=== PATIENT | female | born 1940 | race Caucasian/White ===

== ENCOUNTER 2020-06-19 16:08 | Inpatient (IN) ==
--- NOTE | 2020-06-19 16:18 | Emergency Department Note ---
Impression & Plan Acute hyponatremia ED Provider Note NAME: MARY DUPONT AGE: 79 SEX: F : 1940 ARRIVES VIA: Walk-In INFORMANT: Patient, ED PROVIDER(S): Cooper Swift MD Chief Complaint: Dr. Suarez, abnormal blood work HPI: Patient does present from Dr. Kenyon's office due to concern for low sodium. The patient reportedly had a sodium of 120 and was referred here today. The patient did have letter completed on Wednesday. This is done as the patient has not been feeling her best with some fatigue and tiredness. Patient does not take any diuretics and does not have any prior history of thyroid issues. The patient does have a history of cardiomyopathy but no CHF and denies any liver or kidney problems. The patient does state that she has a chronic history of drinking proximate 4 cans of light beer per day but has not done that within the last several months and most recently had a beer on day as well as last night. Patient denies any fevers, chills, chest pains or shortness of breath. The patient denies any lower extremity swelling. Patient denies Covid symptoms including abdominal pain loss of taste or smell. ROS: See HPI for pertinent positives and negatives. A total of 10 systems were reviewed and otherwise negative. Past medical history: See below Surgical history: See below Social history: See below Physical Exam: GENERAL: Wearing a mask. NAD, non-toxic. EYE EXAM: Normal conjunctiva. PERRL, no anisocoria and EOM's grossly intact w/o pain. NECK: Supple, no nuchal rigidity, no adenopathy, non-tender. No signs of meningismus. LUNGS: Clear to auscultation. Normal chest wall mechanics. HEART: NSR, no MRG. ABDOMEN: Abdomen soft, non-tender, normo-active bowel sounds, no masses, no rebound or guarding. BACK: No CVA TTP. SKIN: No rashes and no bruising. UPPER EXTREMITIES: Upper extremities are grossly normal. LOWER EXTREMITIES: Grossly normal, no edema. NEURO EXAM: A&O x3, cranial nerves II-XII grossly intact, normal speech, moves all 4 extremities on command w/o issue. Differential diagnoses: Infection, dehydration, metabolic abnormality, hypo/hyperglycemia, electrolyte disturbance, anemia, hypoxia, cardiac sources, intracerebral event, toxicologic, neurologic, as well as other pathologies. Course: Patient was seen and evaluated the bedside. Full history physical exam was performed. EKG: Indication: Weakness Sinus bradycardia, rate of 53, normal intervals, normal axis, no ST changes or T WI. Imaging Studies: Radiology results as stated below per my review in the radiologist's interpretation: Cardiac monitoring: An order was placed for continuous cardiac monitoring. The monitor shows a rate of 55 with sinus bradycardia rhythm. MDM: Patient does present with concern for abnormal sodium. Blood work is obtained along with repeats in addition to urine and serum awesome's and electrolytes. I did try and obtain blood work in the outpatient setting from [facility]. Patient has normal white count H&H and platelet count. Patient's kidney func tion is unremarkable. Patient does have low sodium at 124 slightly improved compared to prior. The patient has low awesome's. Urinalysis does not show evidence of obvious infection but the patient does have leuks and whites but without bacteria. I did speak the on-call hospitalist AUREA Vaughn and the patient would be admitted due to the concern for her acute change in hyponatremia which may be secondary to beer portal romeo. The patient does have a history of chronic alcohol use. TSH is normal. Patient does not appear volume overloaded and patient has normal kidney function. Past Med/Surg History Medical History (Updated 06/19/20 @ 19:06 by Cooper Swift MD) Aortic stenosis Chronic pain disorder CKD (chronic kidney disease) stage 3, GFR 30-59 ml/min HTN (hypertension) Hyperlipidemia Hypertrophic cardiomyopathy Mitral regurgitation Raynauds disease Vitamin D deficiency Surgical History History of cholecystectomy History of hysterectomy Social History (Updated 06/19/20 @ 18:47 by Emerald Mitchell PA-C) Smoking Status: Former smoker Smoking End Date: 2000; Hx Alcohol Use: Yes Alcohol type: beer Alcohol Intake Frequency Comment: was daily but pt reports cutting back over past few months Preferred Language: Libyan Feels Safe at Home: Yes Allergies Allergies Allergy/AdvReac Type Severity Reaction Status Date / Time aspirin Allergy Severe Hives Verified 06/19/20 17:58 NSAIDS (Non-Steroidal Allergy Severe Anaphylaxis Verified 06/19/20 17:58 Anti-Inflamma NOEL Inhibitors Allergy Unknown HIVES, Verified 06/19/20 17:58 SWELLING OF FACE ibuprofen Allergy Unknown Hives Verified 06/19/20 17:58 pantoprazole Allergy Unknown Unknown Verified 06/19/20 17:58 Csovuiv-Gzz-Teg Reductase Allergy Unknown "arms and Verified 06/19/20 17:58 Inhibitor legs achy" pravastatin [From Pravachol] AdvReac Severe liver Verified 06/19/20 17:58 complications gabapentin AdvReac Unknown Edema Verified 06/19/20 17:58 valacyclovir [From Valtrex] AdvReac Unknown Kidneys Verified 06/19/20 17:58 shut down Home Meds Home Medications Medication Instructions Recorded Confirmed alendronate 70 mg PO WK 06/14/20 06/19/20 ezetimibe [Zetia] 10 mg PO HS 06/14/20 06/19/20 fenofibrate micronized [Tricor] 67 mg PO HS 06/14/20 06/19/20 lorazepam 0.5 mg SUBLINGUAL HS PRN 06/14/20 06/19/20 losartan 50 mg PO QAM 06/14/20 06/19/20 omeprazole 40 mg PO QAM 06/14/20 06/19/20 oxycodone 5 mg PO Q8H PRN 06/14/20 06/19/20 duloxetine 30 mg PO HS 06/19/20 06/19/20 lifitegrast [Xiidra] 1 drp OPB BID 06/19/20 06/19/20 metoprolol tartrate 50 mg PO BID 06/19/20 06/19/20 Results & Data (ED) Vital Signs Vital Signs - 24 hr 06/19/20 16:12 06/19/20 16:41 06/19/20 16:42 Temperature 36.8 C Temperature Source Oral Pulse Rate 55 L 53 L Pulse Rate [Apical] 60 Pulse Rate from SpO2 Sensor 53 L Respiratory Rate 16 14 12 Respiratory Effort / Characteristics Non-Labored Spontaneous Respiratory Depth Normal Normal Blood Pressure 182/75 H 172/72 H Blood Pressure [Left Arm] 172/72 H Blood Pressure Mean 110 118 Blood Pressure Mean [Left Arm] 105 Blood Pressure Position Sitting Blood Pressure Position [Left Arm] Lying Pulse Oximetry 98 98 100 Oxygen Delivery Method Room Air Room Air Sepsis Recent Fever Within 48 Hours No Sepsis New/Unexplained Change in Mental Status No Sepsis Action Taken by Nursing No Action Required 06/19/20 16:54 06/19/20 17:00 06/19/20 17:01 Temperature Temperature Source Pulse Rate 52 L 53 L 52 L Pulse Rate [Apical] 53 L Pulse Rate from SpO2 Sensor 54 L 54 L 52 L Respiratory Rate 18 Respiratory Effort / Characteristics Non-Labored Respiratory Depth Normal Blood Pressure 179/66 H Blood Pressure [Left Arm] 179/66 H Blood Pressure Mean 84 Blood Pressure Mean [Left Arm] 103 Blood Pressure Position Blood Pressure Position [Left Arm] Pulse Oximetry 98 99 99 Oxygen Delivery Method Room Air Sepsis Recent Fever Within 48 Hours Sepsis New/Unexplained Change in Mental Status Sepsis Action Taken by Nursing 06/19/20 17:10 06/19/20 17:20 06/19/20 17:30 Temperature Temperature Source Pulse Rate 53 L 53 L 54 L Pulse Rate [Apical] Pulse Rate from SpO2 Sensor 53 L 53 L 57 L Respiratory Rate 15 12 Respiratory Effort / Characteristics Respiratory Depth Blood Pressure Blood Pressure [Left Arm] Blood Pressure Mean Blood Pressure Mean [Left Arm] Blood Pressure Position Blood Pressure Position [Left Arm] Pulse Oximetry 99 100 99 Oxygen Delivery Method Sepsis Recent Fever Within 48 Hours Sepsis New/Unexplained Change in Mental Status Sepsis Action Taken by Nursing 06/19/20 17:31 06/19/20 17:40 06/19/20 17:50 Temperature Temperature Source Pulse Rate 54 L 56 L 57 L Pulse Rate [Apical] Pulse Rate from SpO2 Sensor 54 L 55 L 58 L Respiratory Rate 13 14 13 Respiratory Effort / Characteristics Respiratory Depth Blood Pressure 167/80 H Blood Pressure [Left Arm] Blood Pressure Mean 129 Blood Pressure Mean [Left Arm] Blood Pressure Position Blood Pressure Position [Left Arm] Pulse Oximetry 99 99 98 Oxygen Delivery Method Sepsis Recent Fever Within 48 Hours Sepsis New/Unexplained Change in Mental Status Sepsis Action Taken by Nursing 06/19/20 18:00 06/19/20 18:01 06/19/20 18:10 Temperature Temperature Source Pulse Rate 58 L 55 L 55 L Pulse Rate [Apical] Pulse Rate from SpO2 Sensor 58 L 55 L 56 L Respiratory Rate 16 15 14 Respiratory Effort / Characteristics Respiratory Depth Blood Pressure 183/78 H Blood Pressure [Left Arm] Blood Pressure Mean 92 Blood Pressure Mean [Left Arm] Blood Pressure Position Blood Pressure Position [Left Arm] Pulse Oximetry 98 98 98 Oxygen Delivery Method Sepsis Recent Fever Within 48 Hours Sepsis New/Unexplained Change in Mental Status Sepsis Action Taken by Nursing 06/19/20 18:20 06/19/20 18:30 06/19/20 18:31 Temperature Temperature Source Pulse Rate 55 L 56 L 55 L Pulse Rate [Apical] Pulse Rate from SpO2 Sensor 55 L 56 L Respiratory Rate 14 16 Respiratory Effort / Characteristics Respiratory Depth Blood Pressure 170/93 H Blood Pressure [Left Arm] Blood Pressure Mean 144 Blood Pressure Mean [Left Arm] Blood Pressure Position Blood Pressure Position [Left Arm] Pulse Oximetry 97 95 Oxygen Delivery Method Sepsis Recent Fever Within 48 Hours Sepsis New/Unexplained Change in Mental Status Sepsis Action Taken by Nursing 06/19/20 18:40 Temperature Temperature Source Pulse Rate 53 L Pulse Rate [Apical] Pulse Rate from SpO2 Sensor 54 L Respiratory Rate 16 Respiratory Effort / Characteristics Respiratory Depth Blood Pressure Blood Pressure [Left Arm] Blood Pressure Mean Blood Pressure Mean [Left Arm] Blood Pressure Position Blood Pressure Position [Left Arm] Pulse Oximetry 99 Oxygen Delivery Method Sepsis Recent Fever Within 48 Hours Sepsis New/Unexplained Change in Mental Status Sepsis Action Taken by Group Home Medications Current Medication List: was personally reviewed by me Laboratory Data Attestation: I reviewed the patient's lab results. Result diagrams: 06/19/20 16:22 06/19/20 16:22 Lab Results 06/19/20 06/19/20 06/19/20 Range/Units 16:22 16:22 16:22 WBC 6.56 (4.8-10.8) K/uL RBC 4.21 (4.2-5.4) M/uL Hgb 13.0 (12.0-16.0) g/dL Hct 37.9 (37-47) % MCV 90.0 (80-100) fL MCH 30.9 (25-34) pg MCHC 34.3 (32-36) g/dL RDW Std Deviation 41.5 (36.4-46.3) fL RDW Coeff of Cindy 12.6 (11.5-14.5) % Plt Count 372 (130-400) K/uL MPV 9.0 (7.4-10.4) fL Immature Gran % (Auto) 0.2 % Neut % (Auto) 57.6 % Lymph % (Auto) 29.7 % [place] % (Auto) 8.2 % Eos % (Auto) 3.7 % Baso % (Auto) 0.6 % Neut # (Auto) 3.78 (1.4-6.5) K/uL Lymph # (Auto) 1.95 (1.2-3.4) K/uL [place] # (Auto) 0.54 (0.11-0.59) K/uL Eos # (Auto) 0.24 (0-0.5) K/uL Baso # (Auto) 0.04 (0-0.2) K/uL Immature Gran # (Auto) 0.01 (0.00-0.02) K/uL Sodium 124 L (136-145) mmol/L Potassium 4.6 (3.5-5.1) mmol/L Chloride 92 L (98-107) mmol/L Carbon Dioxide 27 (21-32) mmol/L Anion Gap 5.0 (3-11) BUN 10 (7-18) mg/dl Creatinine 0.87 (0.6-1.2) mg/dl Est Cr Clr Drug Dosing 40.6 ml/min Est GFR ( Amer) 72.9 Est GFR (Non-Af Amer) 62.9 BUN/Creatinine Ratio 11.9 (10-20) Glucose 88 (70-99) mg/dl Osmolality 260 L (280-300) mOsm/kg Calcium 8.6 (8.5-10.1) mg/dl Total Bilirubin 0.4 (0.2-1) mg/dl AST 29 (15-37) U/L ALT 27 (12-78) U/L Alkaline Phosphatase 46 (45-117) U/L NT-Pro-B Natriuret Pep 431 (0-1800) pg/ml Total Protein 7.0 (6.4-8.2) gm/dl Albumin 3.7 (3.4-5.0) gm/dl Globulin 3.3 (2.5-4.0) gm/dl Albumin/Globulin Ratio 1.1 (0.9-2) TSH 1.700 (0.300-4.500) uIu/ml Urine Color Urine Appearance (Clear) Urine pH (4.5-7.5) Ur Specific [place] (1.000-1.030) Urine Protein (Negative) Urine Glucose (UA) (Negative) Urine Ketones (Negative) Urine Blood (Negative) Urine Nitrite (Negative) Urine Bilirubin (Negative) Urine Urobilinogen (Negative) Ur Leukocyte Esterase (Negative) Urine WBC (Auto) (0-5) /hpf Urine RBC (Auto) (0-4) /hpf U Hyaline Cast (Auto) (0-5) /lpf U Epithel Cells (Auto) (0-5) /lpf Urine Bacteria (Auto) (Negative) Ur Renal Epithelial Cell (0-5) /lpf Urine Osmolality (500-800) mOsm/kg Urine Sodium mmol/L Urine Potassium mmol/L Urine Chloride mmol/L 06/19/20 06/19/20 06/19/20 Range/Units 16:37 16:37 16:37 WBC (4.8-10.8) K/uL RBC (4.2-5.4) M/uL Hgb (12.0-16.0) g/dL Hct (37-47) % MCV (80-100) fL MCH (25-34) pg MCHC (32-36) g/dL RDW Std Deviation (36.4-46.3) fL RDW Coeff of Cindy (11.5-14.5) % Plt Count (130-400) K/uL MPV (7.4-10.4) fL Immature Gran % (Auto) % Neut % (Auto) % Lymph % (Auto) % [place] % (Auto) % Eos % (Auto) % Baso % (Auto) % Neut # (Auto) (1.4-6.5) K/uL Lymph # (Auto) (1.2-3.4) K/uL [place] # (Auto) (0.11-0.59) K/uL Eos # (Auto) (0-0.5) K/uL Baso # (Auto) (0-0.2) K/uL Immature Gran # (Auto) (0.00-0.02) K/uL Sodium (136-145) mmol/L Potassium (3.5-5.1) mmol/L Chloride (98-107) mmol/L Carbon Dioxide (21-32) mmol/L Anion Gap (3-11) BUN (7-18) mg/dl Creatinine (0.6-1.2) mg/dl Est Cr Clr Drug Dosing ml/min Est GFR ( Amer) Est GFR (Non-Af Amer) BUN/Creatinine Ratio (10-20) Glucose (70-99) mg/dl Osmolality (280-300) mOsm/kg Calcium (8.5-10.1) mg/dl Total Bilirubin (0.2-1) mg/dl AST (15-37) U/L ALT (12-78) U/L Alkaline Phosphatase (45-117) U/L NT-Pro-B Natriuret Pep (0-1800) pg/ml Total Protein (6.4-8.2) gm/dl Albumin (3.4-5.0) gm/dl Globulin (2.5-4.0) gm/dl Albumin/Globulin Ratio (0.9-2) TSH (0.300-4.500) uIu/ml Urine Color Yellow Urine Appearance Cloudy A (Clear) Urine pH 7.0 (4.5-7.5) Ur Specific [place] 1.018 (1.000-1.030) Urine Protein Negative (Negative) Urine Glucose (UA) Negative (Negative) Urine Ketones Negative (Negative) Urine Blood Trace H (Negative) Urine Nitrite Negative (Negative) Urine Bilirubin Negative (Negative) Urine Urobilinogen Negative (Negative) Ur Leukocyte Esterase 3+ H (Negative) Urine WBC (Auto) >30 H (0-5) /hpf Urine RBC (Auto) 5-10 H (0-4) /hpf U Hyaline Cast (Auto) 0 (0-5) /lpf U Epithel Cells (Auto) >30 H (0-5) /lpf Urine Bacteria (Auto) Negative (Negative) Ur Renal Epithelial Cell 10-20 H (0-5) /lpf Urine Osmolality 503 (500-800) mOsm/kg Urine Sodium 59 mmol/L Urine Potassium 51.2 mmol/L Urine Chloride 58 mmol/L Administered Medications Sodium Chloride (Nss 1000ml) 500 mls @ 80 mls/hr IV .[id number] [facility] Stop: 07/19/20 18:29 Last Admin: 06/19/20 18:36 Dose: 80 mls/hr Documented by: [id number] Discharge Plan Visit Data Chief Complaint: Abnormal Labs/Diagnostic Testing Stated Complaint: SENT BY ABNORMAL LABS ED Provider: Cooper Swift Discharge Problem: Acute hyponatremia Forms Stand Alone Forms: My [facility] [place] [email or web address] Prescriptions Prescriptions: No Action metoprolol tartrate 50 mg Tablet 50 mg PO BID RF: 0 Xiidra 5 % Dropperette 1 drp OPB BID RF: 0 duloxetine 30 mg Capsule, Delayed Rel Sprinkle 30 mg PO HS RF: 0 losartan 50 mg tablet 50 mg PO QAM RF: 0 alendronate 70 mg tablet 70 mg PO WK RF: 0 fenofibrate micronized [Tricor] 67 mg Capsule 67 mg PO HS RF: 0 omeprazole 40 mg capsule,delayed release(DR/EC) 40 mg PO QAM RF: 0 lorazepam 0.5 mg tablet 0.5 mg sublingual HS PRN (Reason: Insomnia) RF: 0 oxycodone 5 mg tablet 5 mg PO Q8H PRN (Reason: Pain) RF: 0 ezetimibe [Zetia] 10 mg Tablet 10 mg PO HS RF: 0
[2020-06-19 16:37] LABS: Basophils # (auto) 0.04 K/uL (0-0.2); Basophils % (auto) 0.6 %; Eosinophils # (auto) 0.24 K/uL (0-0.5); Eosinophils % (auto) 3.7 %; Hematocrit (blood only) 37.9 % (37-47); Immature Granulocytes # (auto) 0.01 K/uL (0.00-0.02); Immature Granulocytes % (auto) 0.2 %; Lymphocytes # (auto) 1.95 K/uL (1.2-3.4); Lymphocytes % (auto) 29.7 %; Mean Corpuscular Hemoglobin 30.9 pg (25-34); Mean Corpuscular Hgb Conc 34.3 g/dL (32-36); Monocytes # (auto) 0.54 K/uL (0.11-0.59); Monocytes % (auto) 8.2 %; Neutrophils # (auto) 3.78 K/uL (1.4-6.5); Neutrophils % (auto) 57.6 %; Platelet Count 372 K/uL (130-400); RDW Coefficient of Variation 12.6 % (11.5-14.5); RDW Standard Deviation 41.5 fL (36.4-46.3); Red Blood Count 4.21 M/uL (4.2-5.4); White Blood Count 6.56 K/uL (4.8-10.8)
--- NOTE | 2020-06-19 16:45 | XRay Report ---
XR chest 1V portable HISTORY: 79 years-old Female weakness acute weakness COMPARISON: Chest radiograph 06/02/2013 TECHNIQUE: Portable AP view of the chest FINDINGS: Cardiac silhouette is moderately enlarged. No pneumothorax, pleural effusion, airspace consolidation or overt pulmonary edema. Degenerative changes of the shoulders and spine. Healed remote left-sided r ib fractures. Cholecystectomy. IMPRESSION: No acute process. ACT 112: Negative or not required by law. The above report was generated using voice recognition software. It may contain grammatical, syntax o r spelling errors. Electronically signed by: Jay Shah M.D. 06/19/2020 4:44 PM
[2020-06-19 16:51] LABS: Appearance Urine Cloudy (Clear); Bacteria Urine Automated Negative (Negative); Bilirubin Urine Negative (Negative); Blood Urine Trace (Negative); Color Urine Yellow; Epithelial Cell Urine Auto >30 /lpf (0-5); Glucose Urine UA Negative (Negative); Ketones Urine Negative (Negative); Leukocyte Esterase Urine 3+ (Negative); Nitrite Urine Negative (Negative); Protein Urine Negative (Negative); Specific Gravity Urine 1.018 (1.000-1.030); Urobilinogen Urine Negative (Negative); WBC Urine Automated >30 /hpf (0-5)
[2020-06-19 16:56] LABS: Albumin Level 3.7 gm/dl (3.4-5.0); BUN Creatinine Ratio 11.9 (10-20); Calcium 8.6 mg/dl (8.5-10.1); Creatinine Clr Calc Pharmacy 40.6 ml/min; Est GFR (African American) 72.9; Est GFR (Non-African American) 62.9; Potassium 4.6 mmol/L (3.5-5.1)
[2020-06-19 17:01] LABS: Cast Urine Automated 0 /lpf (0-5)
[2020-06-19 17:06] LABS: Albumin Globulin Ratio 1.1 (0.9-2); Bilirubin,Total 0.4 mg/dl (0.2-1); Globulin 3.3 gm/dl (2.5-4.0); Thyroid Stimulating Hormone 1.7 uIu/ml (0.300-4.500)
[2020-06-19 17:08] LABS: Urine Potassium 51.2 mmol/L
[2020-06-19] MEDS: SODIUM CHLORIDE 0.9% 1000ML 500 ML IV SCH (18:36)
--- NOTE | 2020-06-19 18:55 | History & Physical Report ---
Date of Service June 19, 2020 Assessment & Plan (1) Hyponatremia: Unclear etiology - may be due to alcohol use although pt reports having cut back significantly. Water intake is limited most days already. - NSS 500 cc at 80 cc/hr - Repeat BMP at midnight and in AM - Consult nephrology - Holding losartan for now as rarely associated with hyponatremia - Check CT head to rule out central etiology (2) Chronic pain disorder: - Continue outpatient prn oxycodone (3) HTN (hypertension): - Continue beta malaika. Holding losartan as discussed. Monitor BP (4) Hyperlipidemia: - Continue Zetia. hx of rhabdomyolysis related to statin use (5) Alcohol use: - Alcohol withdrawal protocol - Thiamine and folic acid (6) CKD (chronic kidney disease) stage 3, GFR 30-59 ml/min: - Creatinine appears to be at baseline. Pt seen and evaluated with collaborating physician, Dr. Vigil. Plan of care discussed and as outlined above. Daughter, Cami Melo, was updated at the bedside. She requests to be updated daily at [phone]. Pt agreeable to this request. Pt is a full code. She states that Cami would make decisions for her if she is unable to make them for herself. Kaz Mitchell PA-C History of Present Illness Chief Complaint: referred by PCP to ED due to low sodium Primary Care Provider: Edilia Kenyon MD This is an 79 y/o female with a PMH of hypertrophic cardiomyopathy, pulmonary arterial HTN, hyperparathyroidism, GERD, dyslipidemia, anxiety, osteoporosis, PVD, and CKD3 who was referred to the ED today after outpatient labs from Wednesday came back with a sodium of 120. Pt reports ongoing issues with low sodium over the past few months but never this low. She has seen nephrology for CKD and hyperparathyroidism in the past. She reports ongoing issues with nausea for the past few months with associated decreased appetite so her oral intake is often limited. She was trying to drink at least 5 glasses of water per day but when her sodium was found to be low she cut back. Today she reports only 8-12 oz of water intake and she has not eaten. She has a history of daily intake of light beer until a few months ago when she cut back. Her last drink was yesterday and she reports that she is no longer drinking daily. She does not recall prior admission for alcohol withdrawal. Two nights ago she noted increased urination as often as every hour, but today urine output is decreased and she feels like she is having difficulty urinating and it is only small amounts when she does go. She denies hematuria, dysuria, odor, or change in color of urine. She has occasional diarrhea but only one episode in the past week. She has been feeling tired and currently reports feeling anxious but relates this to be admitted. Allergies Allergy/AdvReac Type Severity Reaction Status Date / Time aspirin Allergy Severe Hives Verified 06/19/20 17:58 NSAIDS (Non-Steroidal Allergy Severe Anaphylaxis Verified 06/19/20 17:58 Anti-Inflamma NOEL Inhibitors Allergy Unknown HIVES, Verified 06/19/20 17:58 SWELLING OF FACE ibuprofen Allergy Unknown Hives Verified 06/19/20 17:58 pantoprazole Allergy Unknown Unknown Verified 06/19/20 17:58 [id number]-Qna Reductase Allergy Unknown "arms and Verified 06/19/20 17:58 Inhibitor legs achy" pravastatin [From Pravachol] AdvReac Severe liver Verified 06/19/20 17:58 complications gabapentin AdvReac Unknown Edema Verified 06/19/20 17:58 valacyclovir [From Valtrex] AdvReac Unknown Kidneys Verified 06/19/20 17:58 shut down Home Medications Medication Instructions Recorded Confirmed Type alendronate 70 mg PO WK 06/14/20 06/19/20 History ezetimibe [Zetia] 10 mg PO HS 06/14/20 06/19/20 History fenofibrate micronized [Tricor] 67 mg PO HS 06/14/20 06/19/20 History lorazepam 0.5 mg SUBLINGUAL HS PRN 06/14/20 06/19/20 History losartan 50 mg PO QAM 06/14/20 06/19/20 History omeprazole 40 mg PO QAM 06/14/20 06/19/20 History oxycodone 5 mg PO Q8H PRN 06/14/20 06/19/20 History duloxetine 30 mg PO HS 06/19/20 06/19/20 History lifitegrast [Xiidra] 1 drp OPB BID 06/19/20 06/19/20 History metoprolol tartrate 50 mg PO BID 06/19/20 06/19/20 History Past Med/Surg History Medical History (Updated 06/19/20 @ 19:06 by Cooper Swift MD) Aortic stenosis Chronic pain disorder CKD (chronic kidney disease) stage 3, GFR 30-59 ml/min HTN (hypertension) Hyperlipidemia Hypertrophic cardiomyopathy Mitral regurgitation Raynauds disease Vitamin D deficiency Surgical History History of cholecystectomy History of hysterectomy Social History (Updated 06/19/20 @ 18:47 by Emerald Mitchell PA-C) Smoking Status: Former smoker Smoking End Date: 2000; Hx Alcohol Use: Yes Alcohol type: beer Alcohol Intake Frequency Comment: was daily but pt reports cutting back over past few months Preferred Language: Czech Feels Safe at Home: Yes Review of Systems Review of Systems: All systems reviewed & are unremarkable except as noted in HPI & below Constitutional: + fatigue and + anorexia; no fever, no chills and no sweats Eyes: no diplopia and no worsening vision Ear, Nose, Mouth, Throat: no nasal congestion, no nasal discharge and no sore throat Respiratory: no cough and no dyspnea Cardiovascular: no chest pain, no palpitations, no syncope and no edema Gastrointestinal: + nausea; no abdominal pain, no heartburn, no vomiting and no diarrhea/loose stools Genitourinary: as per Subjective / HPI Musculoskeletal: no radicular pain, no myalgia and no muscle weakness Integumentary: no rash Neurologic: + headache(s) (chronic daily x 8 months); no falls, no generalized weakness, no paresthesia and no dizziness Psychiatric: + anxiety Physical Exam Constitutional: WD/WN, vitals as above no acute distress Eyes: + anicteric sclerae Neck: trachea midline Respiratory: no respiratory distress and no labored breathing Auscultation: lungs clear to auscultation bilaterally; no rales, no rhonchi and no wheezes Cardiovascular: Rate/Rhythm: regular rate and regular rhythm Heart Sounds: + murmur (systolic) Gastrointestinal (Abdomen): Inspection/Auscultation: normal bowel sounds; abdomen not distended Percussion/Palpation: abdomen soft; abdomen nontender Musculoskeletal: Head/Neck/Chest: normocephalic, head atraumatic and neck supple Skin: no rashes, warm and dry normal turgor Neurologic: moves all extremities Speech / Cognition: normal speech Psychiatric: A+Ox3, euthymic affect Results & Data Results & Data ([facility]) Vital Signs (Past 12 Hours) Vital Signs Temp Pulse Pulse Resp BP BP Pulse Ox 06/19/20 17:10 53 L 99 06/19/20 17:01 52 L 179/66 H 99 06/19/20 17:00 53 L 53 L 18 179/66 H 99 06/19/20 16:54 52 L 98 06/19/20 16:42 53 L 12 172/72 H 100 06/19/20 16:41 60 14 172/72 H 98 06/19/20 16:12 36.8 C 55 L 16 182/75 H 98 Laboratory Results Laboratory Results - last 24 hr 06/19/20 06/19/20 06/19/20 16:22 16:22 16:22 WBC 6.56 RBC 4.21 Hgb 13.0 Hct 37.9 MCV 90.0 MCH 30.9 MCHC 34.3 RDW Std Deviation 41.5 RDW Coeff of Cindy 12.6 Plt Count 372 MPV 9.0 Immature Gran % (Auto) 0.2 Neut % (Auto) 57.6 Lymph % (Auto) 29.7 Davis % (Auto) 8.2 Eos % (Auto) 3.7 Baso % (Auto) 0.6 Neut # (Auto) 3.78 Lymph # (Auto) 1.95 Davis # (Auto) 0.54 Eos # (Auto) 0.24 Baso # (Auto) 0.04 Immature Gran # (Auto) 0.01 Sodium 124 L Potassium 4.6 Chloride 92 L Carbon Dioxide 27 Anion Gap 5.0 BUN 10 Creatinine 0.87 Est Cr Clr Drug Dosing 40.6 Est GFR ( Amer) 72.9 Est GFR (Non-Af Amer) 62.9 BUN/Creatinine Ratio 11.9 Glucose 88 Osmolality 260 L Calcium 8.6 Total Bilirubin 0.4 AST 29 ALT 27 Alkaline Phosphatase 46 NT-Pro-B Natriuret Pep 431 Total Protein 7.0 Albumin 3.7 Globulin 3.3 Albumin/Globulin Ratio 1.1 TSH 1.700 Urine Color Urine Appearance Urine pH Ur Specific Valders Urine Protein Urine Glucose (UA) Urine Ketones Urine Blood Urine Nitrite Urine Bilirubin Urine Urobilinogen Ur Leukocyte Esterase Urine WBC (Auto) Urine RBC (Auto) U Hyaline Cast (Auto) U Epithel Cells (Auto) Urine Bacteria (Auto) Ur Renal Epithelial Cell Urine Osmolality Urine Sodium Urine Potassium Urine Chloride 06/19/20 06/19/20 06/19/20 16:37 16:37 16:37 WBC RBC Hgb Hct MCV MCH MCHC RDW Std Deviation RDW Coeff of Cindy Plt Count MPV Immature Gran % (Auto) Neut % (Auto) Lymph % (Auto) Davis % (Auto) Eos % (Auto) Baso % (Auto) Neut # (Auto) Lymph # (Auto) Davis # (Auto) Eos # (Auto) Baso # (Auto) Immature Gran # (Auto) Sodium Potassium Chloride Carbon Dioxide Anion Gap BUN Creatinine Est Cr Clr Drug Dosing Est GFR ( Amer) Est GFR (Non-Af Amer) BUN/Creatinine Ratio Glucose Osmolality Calcium Total Bilirubin AST ALT Alkaline Phosphatase NT-Pro-B Natriuret Pep Total Protein Albumin Globulin Albumin/Globulin Ratio TSH Urine Color Yellow Urine Appearance Cloudy A Urine pH 7.0 Ur Specific Valders 1.018 Urine Protein Negative Urine Glucose (UA) Negative Urine Ketones Negative Urine Blood Trace H Urine Nitrite Negative Urine Bilirubin Negative Urine Urobilinogen Negative Ur Leukocyte Esterase 3+ H Urine WBC (Auto) >30 H Urine RBC (Auto) 5-10 H U Hyaline Cast (Auto) 0 U Epithel Cells (Auto) >30 H Urine Bacteria (Auto) Negative Ur Renal Epithelial Cell 10-20 H Urine Osmolality 503 Urine Sodium 59 Urine Potassium 51.2 Urine Chloride 58 Diagnostic Findings Chest x-ray 06/19/20 - IMPRESSION: No acute process. Code Status & VTE Plan VTE Prophylaxis Plan VTE Prophylaxis will be ordered: Yes Supervising Physician Co-Signing Physician Notes Pt seen and examined by pr, care coordinated with Kaz Mitchell PA-C, pls refer to her note above for further detail. Pt is an 79 y/o female with hx of hypertrophic cardiomyopathy, pulmonary arterial HTN, hyperparathyroidism, GERD, dyslipidemia, anxiety, osteoporosis, PVD, CKD3, alcohol abuse who was referred by her PCP for sodium of 120. She has seen nephrology for CKD and hyperparathyroidism in the past. She reports ongoing issues with nausea for the past few months with associated decreased appetite so her oral intake is often limited. She was trying to drink at least 5 glasses of water per day but when her sodium was found to be low she cut back as was recommended by PCP. Today she reports only 8-12 oz of water intake and she has not eaten. She has a history of daily intake of light beer until a few months ago when she cut back. Her last drink was yesterday and she reports that she is no longer drinking daily. She does not recall prior admission for alcohol withdrawal. Two nights ago she noted increased urination as often as every hour, but today urine output is decreased and she feels like she is having difficulty urinating and it is only small amounts when she does go. She denies hematuria, dysuria, odor, or change in color of urine. Reports having headache for several months now, also reports nausea as above. Currently she is sitting up in bed in [facility]. She is alert and oriented and answering questions appropriately. Pt's daughter (who is a nurse) is present at the bedside. Pt reports headache (having for several months) but no other complaints at this time. Daughter concerned about pt's drinking but reports pt cut back. On phys. exam lung sounds are clear w/o any wheezing, rhonchi or crackles. Heart sounds regular, + murmur. Abdomen is soft, nontender, nondistended, + bowel sounds. Pt moves extremities spontaneously. Cranial nerves II-XII seem intact. Skin is warm, dry. No LE edema. Will obtain head CT, urine osm, urine Na. Will provide gentle hydration w/ NS and follow Na level closly. Will discuss w/ nephrology. U cltx pending, will follow. Alcohol withdrawal precautions, thiamine, folic acid. Tyler Ignacio MD
--- NOTE | 2020-06-19 19:29 | CT Scan Report ---
CT head/brain wo con CLINICAL HISTORY: 79 years-old Female with hyponatremia. TECHNIQUE: Multiple axial CT images of the head were obtained without contrast. A dose lowering tech nique was utilized adhering to the principles of ALARA. CT DOSE: 537.48 mGy.cm COMPARISON: Head CT 05/30/2013 FINDINGS: No acute intracranial hemorrhage, midline shift, intracranial mass, hydrocephalus, territorial ischem ia or abnormal extra-axial collection. Mild age-related involutional changes. Cerebral vascular calci fications. The calvarium is intact. Mastoid air cells are clear. Mild mucosal thickening of the ethmoid air hardeep ls. Prior bilateral lens replacement. IMPRESSION: No acute intracranial abnormality. ACT 112: Negative or not required by law. The above report was generated using voice recognition software. It may contain grammatical, syntax o r spelling errors. Electronically signed by: Jay Shah M.D. 06/19/2020 7:27 PM
[2020-06-19] MEDS ORDERED: ACETAMINOPHEN 325 MG TAB PO PRN (20:16)
[2020-06-19] MEDS ORDERED: LORazepam 1 MG TAB PO PRN (20:16)
[2020-06-19] MEDS ORDERED: DULoxetine HCL 30 MG CAP PO SCH (21:00)
[2020-06-19] MEDS: EZETIMIBE 10 MG TABLET PO SCH (21:39)
[2020-06-19] MEDS: METOPROLOL TARTRATE 50 MG TAB PO SCH (21:39)
[2020-06-19] MEDS: THIAMINE HCL 100 MG TAB PO SCH (21:39)
[2020-06-19] MEDS: FENOFIBRATE NANOCRYSTALLIZED 48 MG TABLET SCH (21:39)
[2020-06-19] MEDS: oxyCODONE HCL IR 5 MG TAB (IMMEDIATE RELEASE) PO PRN (22:07)
[2020-06-19] MEDS: FOLIC ACID 1 MG TAB PO SCH (22:07)
[2020-06-19] MEDS: LORazepam 0.5 MG TAB SL PRN (23:44)
[2020-06-20 00:47] LABS: BUN Creatinine Ratio 14.1 (10-20); Calcium 8.1 mg/dl (8.5-10.1); Creatinine Clr Calc Pharmacy 46.9 ml/min; Est GFR (African American) 87.3; Est GFR (Non-African American) 75.3
[2020-06-20] MEDS: SODIUM CHLORIDE 0.9% 1000ML 500 ML IV SCH (00:48)
[2020-06-20 07:54] LABS: BUN Creatinine Ratio 13.5 (10-20); Creatinine Clr Calc Pharmacy 51.7 ml/min; Est GFR (African American) 95.8; Est GFR (Non-African American) 82.6
[2020-06-20] MEDS: oxyCODONE HCL IR 5 MG TAB (IMMEDIATE RELEASE) PO PRN ×2 (07:58→19:22)
[2020-06-20] MEDS: THIAMINE HCL 100 MG TAB PO SCH (07:59)
[2020-06-20] MEDS: FOLIC ACID 1 MG TAB PO SCH (07:59)
[2020-06-20] MEDS: METOPROLOL TARTRATE 50 MG TAB PO SCH ×2 (07:59→21:42)
--- NOTE | 2020-06-20 11:13 | Electrocardiogram Report ---
Test Reason : Blood Pressure : / mmHG Vent. Rate : 053 BPM Atrial Rate : 053 BPM P-R Int : 148 ms QRS Dur : 084 ms QT Int : 496 ms P-R-T Axes : 057 009 033 degrees QTc Int : 465 ms Sinus bradycardia Minimal voltage criteria for LVH, may be normal variant Borderline ECG When compared with ECG of 30-MAY-2013 10:41, No significant change was found Confirmed by Serg Mcintyre ([id number]) on 06/20/2020 11:13:20 AM Referred By: Edilia Kenyon Confirmed By:Marino Mcintyre
[2020-06-20 12:17] LABS: BUN Creatinine Ratio 11.5 (10-20); Calcium 8.5 mg/dl (8.5-10.1); Creatinine Clr Calc Pharmacy 50.3 ml/min; Est GFR (African American) 94.8; Est GFR (Non-African American) 81.8; Potassium 4.5 mmol/L (3.5-5.1)
--- NOTE | 2020-06-20 15:44 | Nephrology Consultation ---
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 Her sodium has increased to 131 from 124 yesterday. Rate of rise is acceptable. -Recommend fluid restriction of 40 ounces of water daily. Patient will continue the same even on discharge. -No need for IV fluids -Monitor sodium daily -Symptomatic management for headache and nausea which are potential triggers for ADH release (2) HTN (hypertension): Blood pressure is above target. Restart losartan at 25 mg daily. Monitor blood pressure closely. History of Present Illness Reason for Consultation: Hyponatremia Requesting Physician: Adama Henderson MD Attending Physician: Adama Henderson MD History of Present Illness This is 79-year-old female with history of hypertrophic cardiomyopathy with EF of 55%, hyperlipidemia, hypertension and CKD stage III with baseline creatinine of 1-1.2 who was admitted on 06/19/2020 with hyponatremia. She was found to have a sodium of 120 on outpatient labs done on 06/17/2020. Patient complains of nausea for several days. She has also been having headache for several days. She denies leg swelling. She was initially drinking lots of water until the PCP told her to cut back after findings of hyponatremia. She denies NSAID use. In the emergency room sodium was 124. Serum osmolality was 260. Urine sodium was 59 and urine osmolality of 503. She received normal saline. Sodium is 131 this morning. Losartan was held. Her blood pressure is high today. Allergies Allergy/AdvReac Type Severity Reaction Status Date / Time aspirin Allergy Severe Hives Verified 06/19/20 17:58 NSAIDS (Non-Steroidal Allergy Severe Anaphylaxis Verified 06/19/20 17:58 Anti-Inflamma NOEL Inhibitors Allergy Unknown HIVES, Verified 06/19/20 17:58 SWELLING OF FACE ibuprofen Allergy Unknown Hives Verified 06/19/20 17:58 pantoprazole Allergy Unknown Unknown Verified 06/19/20 17:58 Gsqjoip-Wle-Mnk Reductase Allergy Unknown "arms and Verified 06/19/20 17:58 Inhibitor legs achy" pravastatin [From Pravachol] AdvReac Severe liver Verified 06/19/20 17:58 complications gabapentin AdvReac Unknown Edema Verified 06/19/20 17:58 valacyclovir [From Valtrex] AdvReac Unknown Kidneys Verified 06/19/20 17:58 shut down Home Medications Medication Instructions Recorded Confirmed Type alendronate 70 mg PO WK 06/14/20 06/19/20 History ezetimibe [Zetia] 10 mg PO HS 06/14/20 06/19/20 History fenofibrate micronized [Tricor] 67 mg PO HS 06/14/20 06/19/20 History lorazepam 0.5 mg SUBLINGUAL HS PRN 06/14/20 06/19/20 History losartan 50 mg PO QAM 06/14/20 06/19/20 History omeprazole 40 mg PO QAM 06/14/20 06/19/20 History oxycodone 5 mg PO Q8H PRN 06/14/20 06/19/20 History duloxetine 30 mg PO HS 06/19/20 06/19/20 History lifitegrast [Xiidra] 1 drp OPB BID 06/19/20 06/19/20 History metoprolol tartrate 50 mg PO BID 06/19/20 06/19/20 History Patient History Medical History (Updated 06/19/20 @ 19:06 by Cooper Swift MD) Aortic stenosis Chronic pain disorder CKD (chronic kidney disease) stage 3, GFR 30-59 ml/min HTN (hypertension) Hyperlipidemia Hypertrophic cardiomyopathy Mitral regurgitation Raynauds disease Vitamin D deficiency Surgical History History of cholecystectomy History of hysterectomy Social History (Updated 06/19/20 @ 18:47 by Emerald Mitchell PA-C) Smoking Status: Never smoker Smoking End Date: 2000; Second Hand Exposure: No; Do You Dip or Chew Tobacco: No; Tobacco Cessation Education Requested by Patient: No Hx Alcohol Use: Yes Alcohol type: beer Alcohol Intake Frequency Comment: was daily but pt reports cutting back over past few months Hx Substance Use: No Preferred Language: Arabic Communication Ability: Effective Beliefs That Will Affect Care: None Current Living Situation: Alone Current Living Situation Comment: High Rise Apartment Complex Other Information That Helps Us Care for You: No Feels Safe at Home: Yes Safety Concerns: Feels Safe At This Time Assistive Devices: None Review of Systems Review of Systems: All systems reviewed & are unremarkable except as noted in HPI & below Physical Exam Physical Exam: General exam: Appears comfortable, no acute distress HEENT: Pupils are equal and reactive to light Neck: No JVD, neck is supple trachea is midline Respiratory system: Clear breath sounds bilaterally. Gastrointestinal: Abdomen is soft, non distended, non tender, bowel sounds are present CVS: Regular rate and rhythm. No murmurs, rubs or gallops Musculoskeletal: No joint or muscle tenderness Extremities: Non tender, no edema, peripheral pulses are present Neuro: Oriented, no tremors, no focal neurological deficits Skin: No rashes Results & Data ([facility]) Vital Signs (Past 12 Hours) Vital Signs Temp Pulse Resp BP Pulse Ox 06/20/20 07:20 36.9 C 65 16 167/64 H 94 Laboratory Results 06/20/20 11:50 06/19/20 06/19/20 16:22 16:22 WBC 6.56 RBC 4.21 MCV 90.0 MCH 30.9 MCHC 34.3 RDW Std Deviation 41.5 RDW Coeff of Cindy 12.6 Plt Count 372 MPV 9.0 Albumin 3.7
[2020-06-20] MEDS: LOSARTAN POTASSIUM 25 MG TAB PO SCH (16:11)
[2020-06-20 18:37] LABS: BUN Creatinine Ratio 14.3 (10-20); Calcium 8.3 mg/dl (8.5-10.1); Est GFR (African American) 80.7; Est GFR (Non-African American) 69.6; Potassium 4.2 mmol/L (3.5-5.1)
--- NOTE | 2020-06-20 19:59 | Hospitalist Progress Note ---
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 hx of rhabdomyolysis related to statin use (5) Alcohol use: No signs of alcohol withdrawal at this time will continue to monitor PRN Ativan for anxiety (6) CKD (chronic kidney disease) stage 3, GFR 30-59 ml/min: - Creatinine appears to be at baseline. Admission and Anticipated Discharge Date Admission Date: June 19, 2020 Subjective Follow-up for hyponatremia, etc. Seen sitting up in bed, comfortable, not in distress States she feels anxious secondary to ongoing medical condition Denies headache, chest pain, shortness of breath, nausea, abdominal pain Feels slightly better compared to yesterday No other symptoms Review of Systems Review of Systems: All systems reviewed & are unremarkable except as noted in Subjective Physical Exam Physical Exam: General- oriented x 3, not in distress, speaks in sentences with no effort or accessory muscle use Head- atraumatic Eyes- PERRL, EOMI, anicteric ENT- oropharynx clear Neck- supple, no JVD, no adenopathy, no thyromegaly; carotids +2/2, no bruits appreciated Lungs- clear to auscultation bilaterally, no rales/wheezes Heart- normal rate, regular rhythm; no murmur, no gallop, no rub appreciated Abdomen- normal bowel sounds, nondistended, soft, nontender, no masses or hepatosplenomegaly Extremities- no pretibial edema, no calf tenderness; peripheral pulses intact Neuro- alert, oriented x 3; CN 2-12 grossly intact; motor 5/5 bilaterally;sensation 100% on all extremities; no other gross focal neurologic deficits Skin- warm & dry Results & Data Results & Data ([facility]) Vital Signs (Past 12 Hours) Vital Signs Temp Pulse Resp BP Pulse Ox 06/20/20 15:41 36.8 C 52 L 18 158/62 H 94 Laboratory Results Laboratory Results - last 24 hr 06/20/20 06/20/20 06/20/20 00:22 06:17 11:50 Sodium 130 L 132 L 131 L Potassium 4.0 4.0 4.5 Chloride 97 L 100 100 Carbon Dioxide 26 24 27 Anion Gap 7.0 8.0 4.0 BUN 11 9 8 Creatinine 0.75 0.68 0.70 Est Cr Clr Drug Dosing 46.9 51.7 50.3 Est GFR ( Amer) 87.3 95.8 94.8 Est GFR (Non-Af Amer) 75.3 82.6 81.8 BUN/Creatinine Ratio 14.1 13.5 11.5 Glucose 101 H 86 85 Calcium 8.1 L 8.0 L 8.5 06/20/20 18:01 Sodium 131 L Potassium 4.2 Chloride 98 Carbon Dioxide 27 Anion Gap 6.0 BUN 11 Creatinine 0.80 Est Cr Clr Drug Dosing 44.0 Est GFR ( Amer) 80.7 Est GFR (Non-Af Amer) 69.6 BUN/Creatinine Ratio 14.3 Glucose 100 H Calcium 8.3 L
[2020-06-20] MEDS: EZETIMIBE 10 MG TABLET PO SCH (21:42)
[2020-06-20] MEDS: FENOFIBRATE NANOCRYSTALLIZED 48 MG TABLET SCH (21:42)
[2020-06-20] MEDS: LORazepam 0.5 MG TAB SL PRN (23:34)
[2020-06-21] MEDS: oxyCODONE HCL IR 5 MG TAB (IMMEDIATE RELEASE) PO PRN ×2 (07:54→20:25)
[2020-06-21] MEDS: LOSARTAN POTASSIUM 25 MG TAB PO SCH (08:50)
[2020-06-21] MEDS: METOPROLOL TARTRATE 50 MG TAB PO SCH ×2 (08:51→20:25)
[2020-06-21] MEDS: THIAMINE HCL 100 MG TAB PO SCH (08:51)
[2020-06-21] MEDS: FOLIC ACID 1 MG TAB PO SCH (08:51)
[2020-06-21 09:29] LABS: BUN Creatinine Ratio 16.9 (10-20); Calcium 8.6 mg/dl (8.5-10.1); Creatinine Clr Calc Pharmacy 48.2 ml/min; Est GFR (African American) 90.2; Est GFR (Non-African American) 77.8
[2020-06-21] MEDS ORDERED: LOSARTAN POTASSIUM 25 MG TAB PO ONE (12:18)
[2020-06-21] MEDS: LORazepam 0.5 MG TAB PO PRN (13:08)
--- NOTE | 2020-06-21 13:17 | Psychiatric Consultation ---
Date of Consultation June 21, 2020 Impression / Recommendations Impression 79 yo female with hyponatremia, Cymbalta held by primary team in case contributing on some level as only started 1 week ago. There is no evidence of psychogenic polydipsia. Plan: no indication for psychiatric hospitalization. do not restart Cymbalta upon discharge, generally does not cause that level of hyponatremia but does cause significant N which may have exacerbated her already poor appetite and variable PO intake. SSRIs can contribute to hyponatremia, and in fact most psych meds can casue some degree of SIADH, with antipsychotics being worse offenders. If she hasn't been tried on an SSRI, a low dose with repeat sodium could be attempted. Other option, if insurance/cost allows, would be a newer agent like Viibryd. In short, no new psych meds at this time, should wait until repeat Na as outpa tient and trial of a low dose SSRI with with monitoring (if not previous) or Viibryd at discretion of Dr. Kenyon. I suspect that her hyponatremia was going on for some time and contributed to many of the symptoms she is identifying as depression. Benzodiazepines should be avoided on regular basis for sleep and can contribute to falls in patients >65. Psych History Identifying Data 79 yo female admit for severe hyponatremia. Consult is by Dr. Henderson for depression as Cymbalta is held. Chief Complaint "I'm ready to take something but I don't believe in therapy". History of Present Illness Reports she has been having WOODS and N for 6-8 months, started on Cymbalta last week. admit sodium 124. Denies excessive water drinking. Reports depressive symptoms (low mood, appetite, motivation, concentration and energy) have been worse since COVID due to isolation. She denies ever having suicidal thoughts. She does experience anxiety a few times a week but no panic. She attributes her apurva to her ability to deal with most things. Past Psychiatric History Previous Psych History: no formal, med trials via PCP. Past Medication Trials: probably Remeron, Wellbutrin, trazodone. States that she doesn't want to gain weight and most meds cause swelling (pedal edema) or general puffiness. She would not want to retry any med she has taken before. Allergies Allergy/AdvReac Type Severity Reaction Status Date / Time aspirin Allergy Severe Hives Verified 06/19/20 17:58 NSAIDS (Non-Steroidal Allergy Severe Anaphylaxis Verified 06/19/20 17:58 Anti-Inflamma NOEL Inhibitors Allergy Unknown HIVES, Verified 06/19/20 17:58 SWELLING OF FACE ibuprofen Allergy Unknown Hives Verified 06/19/20 17:58 pantoprazole Allergy Unknown Unknown Verified 06/19/20 17:58 [id number] Reductase Allergy Unknown "arms and Verified 06/19/20 17:58 Inhibitor legs achy" pravastatin [From Pravachol] AdvReac Severe liver Verified 06/19/20 17:58 complications gabapentin AdvReac Unknown Edema Verified 06/19/20 17:58 valacyclovir [From Valtrex] AdvReac Unknown Kidneys Verified 06/19/20 17:58 shut down Home Medications Medication Instructions Recorded Confirmed Type alendronate 70 mg PO WK 06/14/20 06/19/20 History ezetimibe [Zetia] 10 mg PO HS 06/14/20 06/19/20 History fenofibrate micronized [Tricor] 67 mg PO HS 06/14/20 06/19/20 History lorazepam 0.5 mg SUBLINGUAL HS PRN 06/14/20 06/19/20 History losartan 50 mg PO QAM 06/14/20 06/19/20 History omeprazole 40 mg PO QAM 06/14/20 06/19/20 History oxycodone 5 mg PO Q8H PRN 06/14/20 06/19/20 History duloxetine 30 mg PO HS 06/19/20 06/19/20 History lifitegrast [Xiidra] 1 drp OPB BID 06/19/20 06/19/20 History metoprolol tartrate 50 mg PO BID 06/19/20 06/19/20 History Family History denied Substance Abuse History hx of regular ETOh use in past. Personal History Living Arrangements: Apartment ([facility]) Employment Status: Retired Beliefs That Will Affect Care: None Patient History Medical History Aortic stenosis Chronic pain disorder CKD (chronic kidney disease) stage 3, GFR 30-59 ml/min HTN (hypertension) Hyperlipidemia Hypertrophic cardiomyopathy Mitral regurgitation Raynauds disease Vitamin D deficiency Surgical History History of cholecystectomy History of hysterectomy Social History Smoking Status: Never smoker Smoking End Date: 2000; Second Hand Exposure: No; Do You Dip or Chew Tobacco: No; Tobacco Cessation Education Requested by Patient: No Hx Alcohol Use: Yes Alcohol type: beer Alcohol Intake Frequency Comment: was daily but pt reports cutting back over past few months Hx Substance Use: No Preferred Language: [place]i Communication Ability: Effective Beliefs That Will Affect Care: None marital status: Unknown Current Living Situation: Alone Current Living Situation Comment: High Rise Apartment Complex Other Information That Helps Us Care for You: No Feels Safe at Home: Yes Safety Concerns: Feels Safe At This Time Assistive Devices: None Physical Exam Psychiatric: Orientation: alert Apperance: appropriately groomed Eye Contact: good eye contact Motor Behavior: no abnormal motor movements Speech: normal rate/rhythm/volume of speech Affect: + constricted affect Mood: + depressed mood Thought Process: goal directed thought process Thought Content: reality based without delusions Suicidal Thoughts: denies suicidal thoughts Homicidal Thoughts: denies homicidal thoughts Insight: + fair insight Judgement: + fair judgement Vital Signs (Past 24 Hours): Last Vital Signs Temp 36.8 C 06/21/20 07:22 Pulse 57 L 06/21/20 07:22 Resp 16 06/21/20 07:22 BP 154/69 H 06/21/20 07:22 Pulse Ox 98 06/21/20 07:22 Review of Systems All systems reviewed & are unremarkable except as noted in HPI & below Results & Data (PSY) Medications Administered Ezetimibe (Ezetimibe 10 Mg Tablet) 10 mg PO HS TESHA Stop: 07/19/20 20:59 Last Admin: 06/20/20 21:42 Dose: 10 mg Documented by: [id number] Admin: 06/19/20 21:39 Dose: 10 mg Documented by: [id number] Fenofibrate (Fenofibrate Nanocrystallized 48 Mg Tablet) 48 mg NA HS TESHA Stop: 07/19/20 20:59 Last Admin: 06/20/20 21:42 Dose: 48 mg Documented by: [id number] Admin: 06/19/20 21:39 Dose: 48 mg Documented by: [id number] Folic Acid (Folic Acid 1 Mg Tab) 1 mg PO QA TESHA Stop: 07/19/20 20:59 Last Admin: 06/21/20 08:51 Dose: 1 mg Documented by: [id number] Admin: 06/20/20 07:59 Dose: 1 mg Documented by: [id number] Admin: 06/19/20 22:07 Dose: 1 mg Documented by: [id number] Lorazepam (Lorazepam 0.5 Mg Tab) 0.5 mg SL HS PRN PRN Reason: Insomnia Stop: 07/19/20 20:15 Last Admin: 06/20/20 23:34 Dose: 0.5 mg Documented by: [id number] Admin: 06/19/20 23:44 Dose: 0.5 mg Documented by: [id number] Metoprolol Tartrate (Metoprolol Tartrate 50 Mg Tab) 50 mg PO BID [facility] Stop: 07/19/20 20:59 Last Admin: 06/21/20 08:51 Dose: 50 mg Documented by: [id number] Admin: 06/20/20 21:42 Dose: 50 mg Documented by: [id number] Admin: 06/20/20 07:59 Dose: 50 mg Documented by: [id number] Admin: 06/19/20 21:39 Dose: 50 mg Documented by: [id number] Miscellaneous (Lifitegrast [Xiidra] 5 % : Order Awaiting Action) 1 ea N/A QS [facility] Stop: 07/20/20 07:59 Last Admin: 06/21/20 07:53 Dose: Not Given Documented by: [id number] Admin: 06/20/20 23:18 Dose: Not Given Documented by: [id number] Admin: 06/20/20 15:07 Dose: Not Given Documented by: [id number] Admin: 06/20/20 07:05 Dose: Not Given Documented by: [id number] Miscellaneous ((Omeprazole 40 Mg Capsule: Order Awaiting Action) 1 ea N/A QS [facility] Stop: 07/20/20 07:59 Last Admin: 06/21/20 07:53 Dose: Not Given Documented by: [id number] Admin: 06/20/20 23:18 Dose: Not Given Documented by: [id number] Admin: 06/20/20 15:07 Dose: Not Given Documented by: [id number] Admin: 06/20/20 07:05 Dose: Not Given Documented by: [id number] Oxycodone HCl (Oxycodone Hcl Ir 5 Mg Tab (Immediate Release)) 5 mg PO Q8H PRN PRN Reason: Pain Stop: 07/03/20 20:29 Last Admin: 06/21/20 07:54 Dose: 5 mg Documented by: [id number] Admin: 06/20/20 19:22 Dose: 5 mg Documented by: [id number] Admin: 06/20/20 07:58 Dose: 5 mg Documented by: [id number] Admin: 06/19/20 22:07 Dose: 5 mg Documented by: [id number] Thiamine HCl (Thiamine Hcl 100 Mg Tab) 100 mg PO QAM TESHA Stop: 07/19/20 20:59 Last Admin: 06/21/20 08:51 Dose: 100 mg Documented by: [id number] Admin: 06/20/20 07:59 Dose: 100 mg Documented by: [id number] Admin: 06/19/20 21:39 Dose: 100 mg Documented by: [id number] Coding Level of Care Code 72215 [facility] Lvl 2
[2020-06-21] MEDS ORDERED: MAGNESIUM HYDROXIDE SUSP 30 ML UDC PO PRN (15:55)
--- NOTE | 2020-06-21 17:53 | Hospitalist Progress Note ---
Date of Service June 21, 2020 Assessment & Plan (1) Acute hyponatremia: 7-year-old female with history of hypertension, CKD stage III, alcohol use, chronic pain syndrome Presenting with hyponatremia of 120. 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 Guajardo: should wait until repeat Na as outpatient and trial of a low dose SSRI with with monitoring (if not previous) or Viibryd at discretion of Dr. Kenyon (2) Chronic pain disorder: - Continue outpatient prn oxycodone (3) HTN (hypertension): -Continue metoprolol -Continue losartan (4) Hyperlipidemia: - Continue Zetia. hx of rhabdomyolysis related to statin use (5) Alcohol use: Patient reports her last drink was early May No signs of alcohol withdrawal at this time will continue to monitor PRN Ativan for anxiety (6) CKD (chronic kidney disease) stage 3, GFR 30-59 ml/min: - Creatinine appears to be at baseline. Disposition Anticipate discharge to home tomorrow when sodium level remained stable Admission and Anticipated Discharge Date Admission Date: June 19, 2020 Subjective Follow-up for hyponatremia, SIADH, etc. Seen resting in bed, comfortable, not in distress In better spirits States she feels better today compared to yesterday Still has mild anxiety, and generalized headache which is chronic Denies nausea vomiting abdominal pain, chest pain, shortness of breath, palpitations, dizziness Denies tremors, confusion, sweating; reports last drink was first week of May No other symptoms Review of Systems Review of Systems: All systems reviewed & are unremarkable except as noted in Subjective Physical Exam Physical Exam: General- oriented x 3, not in distress, speaks in sentences with no effort or accessory muscle use Eyes- anicteric Neck- no JVD Lungs- clear breath sounds bilaterally Heart- normal rate, regular rhythm; no murmurs Abdomen- normal bowel sounds, nondistended, soft, nontender Extremities- no pretibial edema, no calf tenderness No tremors Neuro- alert, oriented x 3; no gross focal neurologic deficits Skin- warm & dry Results & Data Results & Data ([facility]) Vital Signs (Past 12 Hours) Vital Signs Temp Pulse Resp BP BP Pulse Ox 06/21/20 16:13 36.8 C 57 L 18 147/63 H 98 06/21/20 07:22 36.8 C 57 L 16 154/69 H 98 Laboratory Results Laboratory Results - last 24 hr 06/20/20 06/21/20 06/21/20 18:01 08:13 09:47 Sodium 131 L 132 L Potassium 4.2 4.2 Chloride 98 101 Carbon Dioxide 27 28 Anion Gap 6.0 3.0 BUN 11 12 Creatinine 0.80 0.73 Est Cr Clr Drug Dosing 44.0 48.2 Est GFR ( Amer) 80.7 90.2 Est GFR (Non-Af Amer) 69.6 77.8 BUN/Creatinine Ratio 14.3 16.9 Glucose 100 H 92 Calcium 8.3 L 8.6
[2020-06-21] MEDS ORDERED: ENOXAPARIN INJ 30 MG/0.3 ML SYR SQ SCH (18:30)
--- NOTE | 2020-06-21 19:18 | Nephrology Progress Note ---
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 Her sodium has increased to 132 from 121 yesterday. Rate of rise is acceptable. some question of EtOH use at home per family >> SIADH could in that setting be from low solute diet. -Recommend fluid restriction of 50 ounces of water daily (1.5 L). Patient will continue the same even on discharge. -daily bmp -Symptomatic management for headache and nausea which are potential triggers for ADH release -- but avoid nsaids -recommend bmp w/in 3-5 days of discharge and keep already scheduled 07/09 appt w/ Dr Brennan Thornton >> d/c summary updated will sign off; pls call if ? (2) HTN (hypertension): Blood pressure is above target. up losartan to 50 mg daily. Monitor blood pressure closely. Admission and Anticipated Discharge Date Admission Date: June 19, 2020 Results & Data ([facility]) Vital Signs (Past 12 Hours) Vital Signs Temp Pulse Resp BP BP Pulse Ox 06/21/20 16:13 36.8 C 57 L 18 147/63 H 98 06/21/20 07:22 36.8 C 57 L 16 154/69 H 98 Laboratory Results 06/19/20 16:22 06/21/20 09:47
[2020-06-21] MEDS: EZETIMIBE 10 MG TABLET PO SCH (20:25)
[2020-06-21] MEDS: FENOFIBRATE NANOCRYSTALLIZED 48 MG TABLET SCH (20:25)
[2020-06-21] MEDS: LORazepam 0.5 MG TAB SL PRN (23:44)
[2020-06-22 04:30] VITALS: O2SAT 96
[2020-06-22 06:29] LABS: BUN Creatinine Ratio 24.6 (10-20); Calcium 8.6 mg/dl (8.5-10.1); Creatinine Clr Calc Pharmacy 47.5 ml/min; Est GFR (African American) 88.7; Est GFR (Non-African American) 76.5
[2020-06-22 07:33] VITALS: PULSE 92; TEMP 99
[2020-06-22] MEDS: FOLIC ACID 1 MG TAB PO SCH (08:45)
[2020-06-22] MEDS: METOPROLOL TARTRATE 50 MG TAB PO SCH (08:45)
[2020-06-22] MEDS: oxyCODONE HCL IR 5 MG TAB (IMMEDIATE RELEASE) PO PRN (08:46)
[2020-06-22] MEDS: THIAMINE HCL 100 MG TAB PO SCH (08:46)
[2020-06-22] MEDS ORDERED: OMEPRAZOLE 20 MG CAPCR PO SCH (09:00)
[2020-06-22] MEDS ORDERED: LOSARTAN POTASSIUM 50 MG TAB PO SCH (09:00)
[2020-06-22 11:21] VITALS: BP 157/63
[2020-06-22] MEDS: LORazepam 0.5 MG TAB PO PRN (11:37)
--- NOTE | 2020-06-22 12:37 | Hospitalist Progress Note ---
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 CT head: Negative for acute process Given IV NSS, sodium from 120--> improved 132 Serum Osm, Urine Osm and Na points towards SIADH Youth Pastor consulted, recommends Fluid restriction 1500 cc/day Possible contribution of Cymbalta which was started 1 week ago consult psychiatry, Dr. Guajardo: should wait until repeat Na as outpatient and trial of a low dose SSRI with with monitoring (if not previous) or Viibryd at discretion of Dr. Kenyon (2) Chronic pain disorder: - Continue outpatient prn oxycodone (3) HTN (hypertension): -Continue metoprolol -Continue losartan (4) Hyperlipidemia: - Continue Zetia - hx of rhabdomyolysis related to statin use (5) Alcohol use: Patient reports her last drink was early May No signs of alcohol withdrawal at this time will continue to monitor PRN Ativan for anxiety (6) CKD (chronic kidney disease) stage 3, GFR 30-59 ml/min: - Creatinine appears to be at baseline. (7) Headache Follow-up with neurologist outpatient, felt to be secondary to migraine Possible contribution of chronic sinusitis? Bacterial component? Will order cefdinir x1 week Disposition (8) Depression Cymbalta held per #1 Patient requesting anxiety medication as needed, will order Vistaril as needed Continue outpatient follow-up Disposition Discharge to home Follow-up with PCP in 1 week Admission and Anticipated Discharge Date Admission Date: June 19, 2020 Subjective Follow-up for hyponatremia, etc. Seen resting in bed, comfortable, not in distress States that she feels fine overall Has mild headache, chronic; no new focal neurologic deficits, nausea or vomiting Has sinus congestion which is chronic, with clear nasal drainage Denies fevers or chills, muscle aches, anosmia, poor appetite Reports anxiety-mild but persistent No other symptoms States that she is ready and would like to be discharged today Review of Systems Review of Systems: All systems reviewed & are unremarkable except as noted in Subjective Physical Exam Physical Exam: General- oriented x 3, not in distress, speaks in sentences with no effort or accessory muscle use Eyes- anicteric Neck- no JVD Lungs- clear BS BL Heart- normal rate, regular rhythm; no murmurs Abdomen- normal bowel sounds, nondistended, soft, nontender Extremities- no pretibial edema, no calf tenderness Neuro- alert, oriented x 3; no gross focal neurologic deficits Skin- warm & dry Results & Data Results & Data ([facility]) Vital Signs (Past 12 Hours) Vital Signs Temp Pulse Resp BP BP Pulse Ox 06/22/20 11:17 37.2 C 92 H 20 157/63 H 159/82 H 96 06/22/20 07:32 37.2 C 92 H 20 159/82 H 96 06/22/20 04:29 36.7 C 59 L 18 145/68 H 96 Laboratory Results Laboratory Results - last 24 hr 06/22/20 05:28 Sodium 136 Potassium 4.0 Chloride 102 Carbon Dioxide 30 Anion Gap 4.0 BUN 18 Creatinine 0.74 Est Cr Clr Drug Dosing 47.5 Est GFR ( Amer) 88.7 Est GFR (Non-Af Amer) 76.5 BUN/Creatinine Ratio 24.6 H Glucose 94 Calcium 8.6
--- NOTE | 2020-06-22 12:48 | Discharge Summary ---
Date of Service June 22, 2020 Admission HPI Per Admitting Provider This is an 79 y/o female with a PMH of hypertrophic cardiomyopathy, pulmonary arterial HTN, hyperparathyroidism, GERD, dyslipidemia, anxiety, osteoporosis, PVD, and CKD3 who was referred to the ED today after outpatient labs from Wednesday came back with a sodium of 120. Pt reports ongoing issues with low sodium over the past few months but never this low. She has seen nephrology for CKD and hyperparathyroidism in the past. She reports ongoing issues with nausea for the past few months with associated decreased appetite so her oral intake is often limited. She was trying to drink at least 5 glasses of water per day but when her sodium was found to be low she cut back. Today she reports only 8-12 oz of water intake and she has not eaten. She has a history of daily intake of light beer until a few months ago when she cut back. Her last drink was yesterday and she reports that she is no longer drinking daily. She does not recall prior admission for alcohol withdrawal. Two nights ago she noted increased urination as often as every hour, but today urine output is decreased and she feels like she is having difficulty urinating and it is only small amounts when she does go. She denies hematuria, dysuria, odor, or change in color of urine. She has occasional diarrhea but only one episode in the past week. She has been feeling tired and currently reports feeling anxious but relates this to be admitted. Admission Exam Per Admitting Provider Constitutional: WD/WN, vitals as above no acute distress Eyes: + anicteric sclerae Neck: trachea midline Respiratory: no respiratory distress and no labored breathing Auscultation: lungs clear to auscultation bilaterally; no rales, no rhonchi and no wheezes Cardiovascular: Rate/Rhythm: regular rate and regular rhythm Heart Sounds: + murmur (systolic) Gastrointestinal (Abdomen): Inspection/Auscultation: normal bowel sounds; abdomen not distended Percussion/Palpation: abdomen soft; abdomen nontender Musculoskeletal: Head/Neck/Chest: normocephalic, head atraumatic and neck supple Skin: no rashes, warm and dry normal turgor Neurologic: moves all extremities Speech / Cognition: normal speech Psychiatric: A+Ox3, euthymic affect Principal Diagnosis Hyponatremia, secondary to SIADH Discharge Exam General- oriented x 3, not in distress, speaks in sentences with no effort or accessory muscle use Eyes- anicteric Neck- no JVD Lungs- clear BS BL Heart- normal rate, regular rhythm; no murmurs Abdomen- normal bowel sounds, nondistended, soft, nontender Extremities- no pretibial edema, no calf tenderness Neuro- alert, oriented x 3; no gross focal neurologic deficits Skin- warm & dry Discharge Data Allergies Allergy/AdvReac Type Severity Reaction Status Date / Time aspirin Allergy Severe Hives Verified 06/19/20 17:58 NSAIDS (Non-Steroidal Allergy Severe Anaphylaxis Verified 06/19/20 17:58 Anti-Inflamma NOEL Inhibitors Allergy Unknown HIVES, Verified 06/19/20 17:58 SWELLING OF FACE ibuprofen Allergy Unknown Hives Verified 06/19/20 17:58 pantoprazole Allergy Unknown Unknown Verified 06/19/20 17:58 Szfkznb-Eeq-Yhy Reductase Allergy Unknown "arms and Verified 06/19/20 17:58 Inhibitor legs achy" pravastatin [From Pravachol] AdvReac Severe liver Verified 06/19/20 17:58 complications gabapentin AdvReac Unknown Edema Verified 06/19/20 17:58 valacyclovir [From Valtrex] AdvReac Unknown Kidneys Verified 06/19/20 17:58 shut down Consultations 06/19/20 17:07 ED Decision to Admit Stat 06/19/20 20:16 Consult Nephrology Routine 06/20/20 18:37 Consult Psychiatry Routine Ordered Studies 06/19/20 18:36 CT head/brain wo con Routine FINDINGS: No acute intracranial hemorrhage, midline shift, intracranial mass, hydrocephalus, territorial ischemia or abnormal extra-axial collection. Mild age-related involutional changes. Cerebral vascular calcifications. The calvarium is intact. Mastoid air cells are clear. Mild mucosal thickening of the ethmoid air cells. Prior bilateral lens replacement. IMPRESSION: No acute intracranial abnormality. Hospital Course (1) Acute hyponatremia: 79-year-old female with history of hypertension, CKD stage III, alcohol use, chronic pain syndrome Presenting with hyponatremia of 120. 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 Guajardo: should wait until repeat Na as outpatient and trial of a low dose SSRI with with monitoring (if not previous) or Viibryd at discretion of Dr. Kenyon (2) Chronic pain disorder: - Continue outpatient prn oxycodone (3) HTN (hypertension): -Continue metoprolol -Continue losartan (4) Hyperlipidemia: - Continue Zetia - hx of rhabdomyolysis related to statin use (5) Alcohol use: Patient reports her last drink was early May No signs of alcohol withdrawal at this time will continue to monitor PRN Ativan for anxiety (6) CKD (chronic kidney disease) stage 3, GFR 30-59 ml/min: - Creatinine appears to be at baseline. (7) Headache Follow-up with neurologist outpatient, felt to be secondary to migraine Possible contribution of chronic sinusitis? Bacterial component? Will order cefdinir x1 week Disposition (8) Depression Cymbalta held per #1 Patient requesting anxiety medication as needed, will order Vistaril as needed Continue outpatient follow-up Disposition Discharge to home Follow-up with PCP in 1 week Total Time Total Time Spent Total Time Spent (In Minutes): 40 minutes Discharge Plan Discharge Items Patient Disposition: Home - Self-Care Reason For Visit: HYPONATREMIA Discharge Diagnosis: Hyponatremia, secondary to SIADH (syndrome of inappropriate antidiuretic hormone) Activity: Resume your previous activity Lifting: Wait until after follow-up appointment Exercise/Sports: Wait until after follow-up appointment Driving/Machine Use: No driving while taking Vistaril Non-emergency contact: Primary Care Provider Call non-emergency contact if: you have any medication questions, your symptoms worsen, your pain is not controlled, your pain is worsening, your pain is unusual for you, your pain is concerning for you and you have a fever Follow-up/Referrals: Edilia Kenyon MD [Primary Care Provider] - Diet: Heart Healthy Fluids: 1500ml (6 cups) Addtl Attending Provider Instructions: Please review new medication list and follow instructions carefully. Your new medications include: Cefdinir-antibiotic for sinusitis Vistaril-as needed for anxiety Call your primary care physician or return to the ER immediately if with worsening of symptoms, Including worsening headache, nausea vomiting, confusion, fevers or chills, shortness of breath. Follow-up with your primary care physician in 1 week. [facility] will be calling you for the appointment on Wednesday. Follow-up with the kidney specialist as noted below. Addtl [employer] Provider Instructions: -keep already scheduled 07/09/[address] Brennan Thornton -get bmp within 3-5 days of hospital discharge -fluid limit as above Pending Studies at Discharge: Yes Studies:: Repeat blood work care of primary care physician this coming week (basic metabolic profile) Stand-Alone Forms: My [facility], Smoking Cessation Medications and DC Order Prescriptions: New cefdinir 300 mg capsule 300 mg PO Q12H 7 Days Qty: 14 RF: 0 hydroxyzine pamoate [Vistaril] 25 mg capsule 25 mg PO BID PRN (Reason: anxiety) Qty: 14 RF: 0 Continued metoprolol tartrate 50 mg Tablet 50 mg PO BID RF: 0 Xiidra 5 % Dropperette 1 drp OPB BID RF: 0 losartan 50 mg tablet 50 mg PO QAM RF: 0 alendronate 70 mg tablet 70 mg PO WK RF: 0 fenofibrate micronized [Tricor] 67 mg Capsule 67 mg PO HS RF: 0 omeprazole 40 mg capsule,delayed release(DR/EC) 40 mg PO QAM RF: 0 lorazepam 0.5 mg tablet 0.5 mg sublingual HS PRN (Reason: Insomnia) RF: 0 oxycodone 5 mg tablet 5 mg PO Q8H PRN (Reason: Pain) RF: 0 ezetimibe [Zetia] 10 mg Tablet 10 mg PO HS RF: 0 Discontinued duloxetine 30 mg Capsule, Delayed Rel Sprinkle 30 mg PO HS RF: 0 Discharge Orders: Discharge Order (Routine); Ordered 06/22/20 Ordered By: Adama Henderson Admission Data Admit Date/Time: 06/19/20 18:30 Attending Provider: Adama Henderson Admit Provider: Otis Vigil Primary Care Provider: Edilia Kenyon Other Providers: Otis Vigil ; Alexis Nieto ; Pavan Santos ; Natalie Wilkes ; Tha Skinner ; Pablo Emmanuel ; Giorgio Barbosa ; Meredith Guajardo ; Tacho Stanley ; Dominique Andrews ; Katelyn Brock ; Princess Herron ; Mando Sotomayor I. ; Stacey Hughes ; Nella Jordan ; Sangeetha Duarte Other Interventions: Discharge Summary Assessment (RN) Last Done: 06/22/20 11:17
== END 2020-06-22 14:23 | disposition home or self-care (01) | DRG 644 ==
LOC: ED 16:08 → 2W 18:30 → SUATTDRO 18:30 → 2W 19:35

== ENCOUNTER 2023-12-30 21:06 | Observation (INO) ==
[2023-12-30 22:45] LABS: Albumin Globulin Ratio 1.5 (0.9-2); Albumin Level 4.2 gm/dl (3.4-5.0); BUN Creatinine Ratio 15.7 (10-20); Bilirubin,Total 0.5 mg/dl (0.2-1.0); Calcium 9.2 mg/dl (8.6-10.3); Creatinine Clr Calc Pharmacy 36.2 ml/min; Est GFR (African American) 75.1 ml/min; Est GFR (Non-African American) 64.8 ml/min; Globulin 2.8 gm/dl (2.5-4.0); Magnesium 1.6 mg/dl (1.7-2.4); Potassium 4.1 mmol/L (3.5-5.1)
[2023-12-30 22:51] LABS: Troponin I High Sensitivity 8.1 pg/ml (0-14)
[2023-12-30 23:00] LABS: Thyroid Stimulating Hormone 5.948 uIu/ml (0.300-4.500)
[2023-12-30 23:37] LABS: Basophils # (auto) 0.08 K/uL (0.00-0.20); Basophils % (auto) 1.1 %; Eosinophils # (auto) 0.26 K/uL (0.00-0.50); Eosinophils % (auto) 3.5 %; Hematocrit (blood only) 35.9 % (37.0-47.0); Immature Granulocytes # (auto) 0.02 K/uL (0.01-0.20); Immature Granulocytes % (auto) 0.3 %; Lymphocytes # (auto) 1.36 K/uL (1.20-3.40); Lymphocytes % (auto) 18.2 %; Mean Corpuscular Hemoglobin 30.2 pg (25.0-34.0); Mean Corpuscular Hgb Conc 33.4 g/dL (32.0-36.0); Mean Corpuscular Volume 90.2 fL (80.0-100.0); Mean Platelet Volume 8.9 fL (9.4-12.4); Monocytes # (auto) 0.45 K/uL (0.11-0.59); Neutrophils # (auto) 5.29 K/uL (1.40-6.50); Neutrophils % (auto) 70.9 %; Platelet Count 323 K/uL (130-400); RDW Standard Deviation 39.4 fL (36.4-46.3); Red Blood Count 3.98 M/uL (4.20-5.40); White Blood Count 7.46 K/ul (4.8-10.8)
[2023-12-30 23:44] LABS: Partial Thromboplastin Time 26 Seconds (21-31); Prothrombin Time 10.9 Seconds (9.0-12.0)
[2023-12-31] MEDS: SODIUM CHLORIDE 0.9% 1,000 ML IV SCH (00:19)
--- NOTE | 2023-12-31 00:20 | Emergency Department Note ---
Impression & Plan AMS (altered mental status), Hyponatremia, HTN (hypertension) ED Provider Note NAME: MARY DUPONT AGE: 83 SEX: Female INFORMANT: Patient ED PROVIDER(S): José Miguel Adames MD CHIEF COMPLAINT: Confusion PLAN: Disposition: Admitted Outpatient prescription management: none Referral: None MEDICAL DECISION MAKING: Patient presented because of change mental status. Patient was found to be mildly hyponatremic. Head CT was negative. Urinalysis was unremarkable. Cardiac troponin negative. Cardiac monitoring did not reveal significant problems. Patient was not orthostatic. Medical alcohol negative. ECG showed sinus bradycardia. Record review indicates patient has had over 13 pound weight loss in the last year. She was started on saline hydration. Discussed further management in the hospital given the episode. Patient in agreement. Consultation was made with Dr. Anjum Ley, [facility] hospitalist service. Patient was evaluated in the ER admitted for further management. Ultrasound imaging of the left lower extremity is pending. Care/management discussed with: branch manager Level of care consideration(s): After review of the information above and other included data, I feel the patient requires escalation of care to admission Triage Nursing notes: reviewed and agree them. Vital Signs: reviewed and remarkable for mild hypertension Additional History obtained from: none Chronic Medical/Social Conditions affecting care: Hypertension, hyperlipidemia Prior/ Outside/ External records reviewed: none Differential Diagnosis: Infection, dehydration, metabolic abnormality, hypo/hyperglycemia, electrolyte disturbance, anemia, hypoxia, cardiac sources, intracerebral event, toxicologic, neurologic, as well as other pathologies. Diagnostics, independently interpreted by me: ECG: Twelve-lead ECG was sinus bradycardia at [address] elevation or depression Cardiac Monitoring: Cardiac monitoring ordered by me: The patient was placed on continuous cardiac monitoring and observed. It revealed a normal sinus rhythm at 60 beats per minute without ectopy or evidence of dysrhythmia. Medical decision rules: none Imaging studies: Head CT: A noncontrast CT scan of the head was performed and was negative for tumor, fracture, intracranial hemorrhage, or other acute pathology. Chest x-ray. Findings: A chest x-ray was performed and revealed no pneumothorax, effusion, infiltrate, pulmonary edema, free air under the diaphragm, or wide mediastinum. Impression: No acute disease. HPI: 83 year old Female arrives for evaluation of confusion.EMS reports that the patient has not been eating well per the patient's friends. They were concerned. They were with her tonight and she had an episode where she was not responsive and was confused afterwards. No seizure activity was reported. EMS was summoned and transport was uneventful. Patient was noted to be mildly hypertensive and bradycardic. Upon arrival patient was alert and oriented. Patient denied any pain. She feels generally weak. She notes that she is not eating well. She has been losing weight. She notes some swelling on her legs which seems to be worse on the left but that has been going on for "some time". Pt denies headache, fevers, chills, diaphoresis, visual changes, neck pain, chest pain, breathing difficulties, nausea, vomiting, abdominal pain, back pain, melena, hematochezia, urinary symptoms, numbness, lymphadenopathy, rash, or other complaints. PAST MEDICAL HISTORY: See Below, hyponatremia, hypertension, KULDIP PAST SURGICAL HISTORY: See Below, SOCIAL HISTORY: See Below, retired HOME MEDICATIONS: See Below ALLERGIES: See Below VITALS: See Below PHYSICAL EXAMINATION: GENERAL: Awake, alert, Age appropriate-appearing, in no distress HENT: Normocephalic, atraumatic. Oropharynx unremarkable. EYES: Normal conjunctiva. Sclera non-icteric. NECK: Inspection normal. Non-tender. Supple. No nuchal rigidity. FROM. No masses. RESPIRATORY: Clear to auscultation. No wheezes. No rales. Normal respiratory effort. CARDIAC: Normal rate. Normal rhythm. No murmurs. No rubs. Extremities warm and well perfused. Pulses equal. No JVD. GI: Soft, non-distended. No tenderness to palpation. No rebound or guarding. No masses. RECTAL: Deferred. MUSCULOSKELETAL: Atraumatic. Chest examination reveals no tenderness. The back is symmetrical on inspection without obvious abnormality. There is no CVA tenderness to palpation. No joint edema. LOWER EXTREMITIES: Left lower extremity slightly more edematous than the right. No tenderness to palpation.. No discoloration. NEURO: Normal sensorium. No sensory or motor deficits noted. SKIN: No rash or jaundice noted. PROCEDURES: none CRITICAL CARE: none OBSERVATION NOTE: none Past Med/Surg History Problem List (Updated 12/31/23 @ 00:20 by José Miguel Adames MD) AMS (altered mental status) (Acute) Thoracic spondylosis Bilateral occipital neuralgia Chronic daily headache Opioid dependence Thoracic back pain Myofascial pain Acute hyponatremia (Acute) Chronic pain disorder (Chronic) CKD (chronic kidney disease) stage 3, GFR 30-59 ml/min Hyponatremia (Acute) Hypertrophic cardiomyopathy (Chronic) Raynauds disease (Chronic) Hyperlipidemia (Chronic) HTN (hypertension) (Chronic) Encephalopathy (Acute) Altered mental status (Acute 05/30/13) Acute kidney injury (Acute 05/30/13) Hypomagnesemia (Acute) Hypokalemia (Acute) Hypophosphatemia (Acute) Malnutrition (Acute) Alcohol use (Chronic) Ulceration of oral mucosa (Acute) Medical History Vitamin D deficiency Mitral regurgitation Aortic stenosis Surgical History History of hysterectomy History of cholecystectomy Family History Other No pertinent family history Social History Smoking Status: Never smoker Second Hand Exposure: No; Do You Dip or Chew Tobacco: No; Hx Alcohol Use: Yes Alcohol type: wine Alcohol Intake Frequency Comment: was daily but pt reports cutting back over past few months Hx Substance Use: No Preferred Language: Nauruan Communication Ability: Effective Sed Special Education Teacher Required: No Beliefs That Will Affect Care: None marital status: Unknown Current Living Situation: Alone Current Living Situation Comment: High Rise Apartment Complex Other Information That Helps Us Care for You: No Feels Safe at Home: Yes Safety Concerns: Feels Safe At This Time Assistive Devices: Glasses Allergies Allergies Allergy/AdvReac Type Severity Reaction Status Date / Time aspirin Allergy Severe Hives Verified 10/13/23 14:51 NSAIDS (Non-Steroidal Allergy Severe Anaphylaxis Verified 10/13/23 14:51 Anti-Inflamma NOEL Inhibitors Allergy Unknown HIVES, Verified 10/13/23 14:51 SWELLING OF FACE ibuprofen Allergy Unknown Hives Verified 10/13/23 14:51 pantoprazole Allergy Unknown Unknown Verified 10/13/23 14:51 Wjirxkf-RWK-McA Reductase Allergy Unknown "arms and Verified 10/13/23 14:51 Inhibitor legs achy" [Ppxnany-Jwi-Ahm Reductase Inhibitor] pravastatin [From Pravachol] AdvReac Severe liver Verified 10/13/23 14:51 complications gabapentin AdvReac Unknown Edema Verified 10/13/23 14:51 valacyclovir [From Valtrex] AdvReac Unknown Kidneys Verified 10/13/23 14:51 shut down Home Meds Home Medications Medication Instructions Recorded Confirmed ezetimibe 10 mg tablet (Zetia) 10 mg PO HS 06/14/20 12/31/23 fenofibrate micronized 67 mg 67 mg PO HS 06/14/20 12/31/23 capsule lorazepam 0.5 mg tablet 0.5 mg sublingual HS PRN Insomnia 06/14/20 12/31/23 omeprazole 40 mg capsule,delayed 40 mg PO QAM 06/14/20 12/31/23 release oxycodone 5 mg tablet 5 mg PO Q8H PRN Pain 06/14/20 12/31/23 lifitegrast 5 % eye drops in a 1 drp OPB BID 06/19/20 12/31/23 dropperette (Xiidra) metoprolol tartrate 50 mg tablet 50 mg PO BID 06/19/20 12/31/23 buspirone 15 mg tablet 15 mg PO BID 07/16/23 12/31/23 cholecalciferol (vitamin D3) 100 100 mcg PO DAILY 07/16/23 12/31/23 mcg (4,000 unit) tablet duloxetine 30 mg capsule,delayed 30 mg PO DAILY 07/16/23 12/31/23 release escitalopram oxalate 10 mg tablet 10 mg PO DAILY 07/16/23 12/31/23 escitalopram oxalate 20 mg tablet 20 mg PO DAILY 07/16/23 12/31/23 fluticasone furoate 50 1 inh inhalation BID 07/16/23 12/31/23 mcg/actuation blister powder for inhalation losartan 25 mg tablet 25 mg PO BID 07/16/23 12/31/23 ondansetron 4 mg disintegrating 8 mg PO TID PRN nausea 07/16/23 12/31/23 tablet hydroxyzine HCl 25 mg tablet 25 mg PO DIRECTED PRN per 12/31/23 12/31/23 patient Results & Data (ED) Vital Signs Vital Signs - 24 hr 12/30/23 20:55 12/30/23 21:36 12/30/23 22:11 Temperature 36.8 C Temperature Source Axillary Pulse Rate - Lying Pulse Rate - Sitting Pulse Rate - Standing Pulse Rate 63 60 61 Pulse Rate [Right] Pulse Rate from SpO2 Sensor 60 61 Pulse Rhythm Regular Pulse Strength Normal Respiratory Rate 18 12 14 Respiratory Effort / Characteristics Non-Labored Respiratory Depth Normal Respiratory Pattern Regular Blood Pressure - Lying Blood Pressure - Sitting Blood Pressure- Standing Blood Pressure 178/90 H 155/67 H 137/65 Blood Pressure [Right Arm] Blood Pressure Mean 119 96 89 Blood Pressure Mean [Right Arm] Blood Pressure Position Sitting Blood Pressure Position [Right Arm] Pulse Oximetry 95 94 95 Oxygen Delivery Method Room Air Room Air Room Air Sepsis Recent Fever Within 48 Hours No Sepsis New/Unexplained Change in Mental Status N/A Sepsis Action Taken by Nursing No Action Required 12/30/23 22:29 12/30/23 22:33 12/30/23 23:30 Temperature Temperature Source Pulse Rate - Lying 61 Pulse Rate - Sitting 62 Pulse Rate - Standing 60 Pulse Rate 62 Pulse Rate [Right] 54 L Pulse Rate from SpO2 Sensor Pulse Rhythm Pulse Strength Respiratory Rate 16 Respiratory Effort / Characteristics Non-Labored Spontaneous Respiratory Depth Normal Respiratory Pattern Blood Pressure - Lying 144/69 H Blood Pressure - Sitting 157/59 H Blood Pressure- Standing 168/65 H Blood Pressure Blood Pressure [Right Arm] 145/65 H Blood Pressure Mean Blood Pressure Mean [Right Arm] 91 Blood Pressure Position Blood Pressure Position [Right Arm] Lying Pulse Oximetry 95 Oxygen Delivery Method Room Air Sepsis Recent Fever Within 48 Hours Sepsis New/Unexplained Change in Mental Status Sepsis Action Taken by Nursing 12/31/23 00:52 Temperature Temperature Source Pulse Rate - Lying Pulse Rate - Sitting Pulse Rate - Standing Pulse Rate Pulse Rate [Right] 54 L Pulse Rate from SpO2 Sensor Pulse Rhythm Pulse Strength Respiratory Rate 16 Respiratory Effort / Characteristics Non-Labored Spontaneous Respiratory Depth Normal Respiratory Pattern Blood Pressure - Lying Blood Pressure - Sitting Blood Pressure- Standing Blood Pressure Blood Pressure [Right Arm] 172/77 H Blood Pressure Mean Blood Pressure Mean [Right Arm] 108 Blood Pressure Position Blood Pressure Position [Right Arm] Lying Pulse Oximetry 97 Oxygen Delivery Method Room Air Sepsis Recent Fever Within 48 Hours Sepsis New/Unexplained Change in Mental Status Sepsis Action Taken by Nursing Laboratory Data 12/30/23 23:12 12/30/23 21:42 Lab Results 12/30/23 12/30/23 12/30/23 Range/Units 21:42 23:12 23:55 WBC Cancelled 7.46 RBC Cancelled 3.98 L Hgb Cancelled 12.0 Hct Cancelled 35.9 L MCV Cancelled 90.2 MCH Cancelled 30.2 MCHC Cancelled 33.4 RDW Std Deviation Cancelled 39.4 RDW Coeff of Cindy Cancelled 12.0 Plt Count Cancelled 323 MPV Cancelled 8.9 L Immature Gran % (Auto) Cancelled 0.3 Neut % (Auto) Cancelled 70.9 Lymph % (Auto) Cancelled 18.2 Yates % (Auto) Cancelled 6.0 Eos % (Auto) Cancelled 3.5 Baso % (Auto) Cancelled 1.1 Neut # (Auto) Cancelled 5.29 Lymph # (Auto) Cancelled 1.36 Yates # (Auto) Cancelled 0.45 Eos # (Auto) Cancelled 0.26 Baso # (Auto) Cancelled 0.08 Immature Gran # (Auto) Cancelled 0.02 Absolute Nucleated RBC Cancelled Nucleated RBC % (auto) Cancelled Neutrophils % (Manual) Cancelled Band Neutrophils % Cancelled Lymphocytes % (Manual) Cancelled Prolymphocyte % Cancelled Reactive Lymphs % (Man) Cancelled Monocytes % (Manual) Cancelled Eosinophils % (Manual) Cancelled Basophils % (Manual) Cancelled Metamyelocytes % (Man) Cancelled Myelocytes % (Man) Cancelled Promyelocytes % (Man) Cancelled Blast Cells % (Manual) Cancelled Plasma Cell % (Manual) Cancelled Other Cells % Cancelled Nucleated RBC % Cancelled Neutrophils # (Manual) Cancelled Band Neutrophils # Cancelled Total Absolute Neuts Cancelled Lymphocytes # (Manual) Cancelled Prolymphocyte # Cancelled Reactive Lymphs # Cancelled Total Abs Lymphocytes Cancelled Monocytes # (Manual) Cancelled Eosinophils # (Manual) Cancelled Basophils # (Manual) Cancelled Metamyelocytes # (Man) Cancelled Myelocytes # (Manual) Cancelled Promyelocytes # (Man) Cancelled Blast Cells # (Man) Cancelled Plasma Cell # (Manual) Cancelled Other Cells # Cancelled Nucleated RBCs # (Man) Cancelled Hypersegmented Neuts Cancelled Hyposegmented Neuts Cancelled Hypogranular Neuts Cancelled Large Granular Lymphs Cancelled # Lrg Granular Lymphs Cancelled Hairy Cells Cancelled Smudge Cells Cancelled Toxic Granulation Cancelled Toxic Vacuolation Cancelled Dohle Bodies Cancelled Pinky Rods Cancelled Platelet Estimate Cancelled Hypogranular Platelets Cancelled Giant Platelets Cancelled Platelet Satelliting Cancelled RBC Morphology Cancelled Polychromasia Cancelled Hypochromasia Cancelled Poikilocytosis Cancelled Basophilic Stippling Cancelled Anisocytosis Cancelled Microcytosis Cancelled Macrocytosis Cancelled Spherocytes Cancelled Pappenheimer Bodies Cancelled Sickle Cells Cancelled Target Cells Cancelled Tear Drop Cells Cancelled Ovalocytes Cancelled Stomatocytes Cancelled [place] Bodies Cancelled Echinocytes Cancelled Acanthocytes (Spur) Cancelled Rouleaux Cancelled RBC Agglutinates Cancelled Schistocytes Cancelled Sezary Cell Cancelled PT 10.9 (9.0-12.0) Seconds INR 1.0 (0.9-1.1) APTT 26 (21-31) Seconds PTT Ratio 1.0 Sodium 129 L (136-145) mmol/L Potassium 4.1 (3.5-5.1) mmol/L Chloride 97 L (98-107) mmol/L Carbon Dioxide 24 (21-32) mmol/L Anion Gap 8 (3-11) BUN 13 (6-23) mg/dl Creatinine 0.83 (0.6-1.2) mg/dl Est Cr Clr Drug Dosing 36.2 ml/min Est GFR ( Amer) 75.1 ml/min Est GFR (Non-Af Amer) 64.8 ml/min BUN/Creatinine Ratio 15.7 (10-20) Glucose 94 (70-99(Fasting)) mg/dl Calcium 9.2 (8.6-10.3) mg/dl Magnesium 1.6 L (1.7-2.4) mg/dl Total Bilirubin 0.5 (0.2-1.0) mg/dl AST 28 (13-39) U/L ALT 12 (7-52) U/L Alkaline Phosphatase 56 (34-104) U/L Troponin I High Sens 8.1 (0-14) pg/ml Total Protein 7.0 (6.0-8.3) gm/dl Albumin 4.2 (3.4-5.0) gm/dl Globulin 2.8 (2.5-4.0) gm/dl Albumin/Globulin Ratio 1.5 (0.9-2) TSH 5.948 H (0.300-4.500) uIu/ml Free T4 0.91 (0.61-1.60) ng/dl Urine Color Yellow Urine Appearance Clear (Clear) Urine pH 6.0 (4.5-7.5) Ur Specific [place] 1.004 (1.000-1.030) Urine Protein Negative (Negative) Urine Glucose (UA) Negative (Negative) Urine Ketones Negative (Negative) Urine Blood Negative (Negative) Urine Nitrite Negative (Negative) Urine Bilirubin Negative (Negative) Urine Urobilinogen Negative (Negative) Ur Leukocyte Esterase Trace H (Negative) Urine WBC (Auto) 0-5 (0-5) /hpf Urine RBC (Auto) 0-2 (0-2) /hpf U Hyaline Cast (Auto) 0-2 (0-2) /lpf U Epithel Cells (Auto) 0-2 (0-2) /hpf Urine Bacteria (Auto) None Seen (None Seen) Ethyl Alcohol mg/dL < 10.0 (<10.0) mg/dl Blood Parasites ID Cancelled Administered Medications Sodium Chloride (Nss) 1,000 mls @ 60 mls/hr IV .[id number] ONE Stop: 12/31/23 17:10 Last Admin: 12/31/23 00:43 Dose: 60 mls/hr Documented By: VENU Discontinued Medications Hydralazine HCl (Hydralazine Hcl 20 Mg/Ml Vial) 5 mg IV NOW ONE Stop: 12/31/23 01:05 Last Admin: 12/31/23 01:17 Dose: 5 mg Documented By: VENU Sodium Chloride (Nss) 1,000 mls @ 125 mls/hr IV .Q8H TESHA Stop: 01/30/24 00:14 Last Infusion: 12/31/23 00:43 Dose: 0 mls/hr Documented By: Admin: 12/31/23 00:19 Dose: 125 mls/hr Documented By: VENU Magnesium Sulfate/Dextrose (Magnesium Sulfate / D5w) 1 gm in 100 mls @ 50 mls/hr IV ONE ONE Stop: 12/31/23 02:29 Last Admin: 12/31/23 00:42 Dose: 50 mls/hr Documented By: VENU Lorazepam (Lorazepam 0.5 Mg Tab) 0.25 mg PO NOW STA Stop: 12/31/23 01:02 Last Admin: 12/31/23 01:17 Dose: 0.25 mg Documented By: VENU Imaging Data Radiologist's Impression: Head CT 12/30/23 23:03 Exam(s): CT HEAD Without Contrast EXAM: CT Head Without Intravenous Contrast CLINICAL HISTORY: Reason for exam: AMS. TECHNIQUE: Axial computed tomography images of the head/brain without intravenous contrast. Automated exposure control was utilized for the study. A dose lowering technique was utilized adhering to the principles of ALARA. COMPARISON: No relevant prior studies available. FINDINGS: No acute intracranial hemorrhage. No midline shift or mass effect. The territorial morales-white matter differentiation is maintained throughout. Age-related cerebral volume loss. Periventricular and subcortical white matter hypoattenuation, consistent with chronic microangiopathy. The visualized orbits appear grossly unremarkable. The calvarium is intact. The visualized paranasal sinuses and mastoid air cells are grossly clear. IMPRESSION: No acute intracranial hemorrhage, midline shift, or mass effect. Electronically signed by: Orlin Knight MD 12/31/23 01:32 AM Discharge Plan Visit Data Chief Complaint: Confusion Stated Complaint: Confusion ED Provider: José Miguel Adames Discharge Problem: AMS (altered mental status), Hyponatremia, HTN (hypertension) Discharge Instructions Interventions: ED Discharge Assessment Last Done: 12/31/23 01:26
[2023-12-31 00:22] LABS: Appearance Urine Clear (Clear); Bacteria Urine Automated None Seen (None Seen); Bilirubin Urine Negative (Negative); Blood Urine Negative (Negative); Cast Urine Automated 0-2 /lpf (0-2); Color Urine Yellow; Epithelial Cell Urine Auto 0-2 /hpf (0-2); Glucose Urine UA Negative (Negative); Ketones Urine Negative (Negative); Leukocyte Esterase Urine Trace (Negative); Nitrite Urine Negative (Negative); Protein Urine Negative (Negative); RBC Urine Automated 0-2 /hpf (0-2); Specific Gravity Urine 1.004 (1.000-1.030); Urobilinogen Urine Negative (Negative); WBC Urine Automated 0-5 /hpf (0-5)
[2023-12-31] MEDS: MAGNESIUM SULFATE / D5W 1 GM/100 ML BAG IV ONE (00:42)
[2023-12-31] MEDS: SODIUM CHLORIDE 0.9% 1,000 ML IV ONE (00:43)
--- NOTE | 2023-12-31 01:01 | History & Physical Report ---
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 It may contain grammatical or spelling errors. Kindly contact undersigned for clarification of any documentation item in question. History of Present Illness Chief Complaint: Transient unresponsiveness Primary Care Provider: Edilia Kenyon MD History obtained from patient and records. Medical history significant for hypertrophic cardiomyopathy, hypertension, hyperlipidemia, pulmonary hypertension as per records, PVD, chronic hyponatremia/SIADH, GERD, anxiety/mood disorder, prediabetes, chronic back pain. Last confinement June 2020 for hyponatremia secondary to SIADH. Nephrology recommended 1.5 L daily fluid restriction. Patient was hanging out with some friends at her apartment when she was noted to have transient unresponsiveness/blank stare for a few moments. Patient had consumed a little alcohol. No witnessed tongue biting or incontinence symptoms. Usual headache symptoms. Has not happened before. Patient has not been eating well since COVID 19 illness from years ago. Denies chest pain, SOB, abdominal pain. Mood is okay as per patient. SBP 170s upon arrival at the ER. 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 Allergies Allergy/AdvReac Type Severity Reaction Status Date / Time aspirin Allergy Severe Hives Verified 10/13/23 14:51 NSAIDS (Non-Steroidal Allergy Severe Anaphylaxis Verified 10/13/23 14:51 Anti-Inflamma NOEL Inhibitors Allergy Unknown HIVES, Verified 10/13/23 14:51 SWELLING OF FACE ibuprofen Allergy Unknown Hives Verified 10/13/23 14:51 pantoprazole Allergy Unknown Unknown Verified 10/13/23 14:51 Nolnugu-EDE-BeR Reductase Allergy Unknown "arms and Verified 10/13/23 14:51 Inhibitor legs achy" [Gmbsysq-Mbm-Nnr Reductase Inhibitor] pravastatin [From Pravachol] AdvReac Severe liver Verified 10/13/23 14:51 complications gabapentin AdvReac Unknown Edema Verified 10/13/23 14:51 valacyclovir [From Valtrex] AdvReac Unknown Kidneys Verified 10/13/23 14:51 shut down Home Medications Medication Instructions Recorded Confirmed Type ezetimibe 10 mg tablet (Zetia) 10 mg PO HS 06/14/20 12/31/23 History fenofibrate micronized 67 mg 67 mg PO HS 06/14/20 12/31/23 History capsule lorazepam 0.5 mg tablet 0.5 mg sublingual HS PRN Insomnia 06/14/20 12/31/23 History omeprazole 40 mg capsule,delayed 40 mg PO QAM 06/14/20 12/31/23 History release oxycodone 5 mg tablet 5 mg PO Q8H PRN Pain 06/14/20 12/31/23 History lifitegrast 5 % eye drops in a 1 drp OPB BID 06/19/20 12/31/23 History dropperette (Xiidra) metoprolol tartrate 50 mg tablet 50 mg PO BID 06/19/20 12/31/23 History buspirone 15 mg tablet 15 mg PO BID 07/16/23 12/31/23 History cholecalciferol (vitamin D3) 100 100 mcg PO DAILY 07/16/23 12/31/23 History mcg (4,000 unit) tablet duloxetine 30 mg capsule,delayed 30 mg PO DAILY 07/16/23 12/31/23 History release escitalopram oxalate 10 mg tablet 10 mg PO DAILY 07/16/23 12/31/23 History escitalopram oxalate 20 mg tablet 20 mg PO DAILY 07/16/23 12/31/23 History fluticasone furoate 50 1 inh inhalation BID 07/16/23 12/31/23 History mcg/actuation blister powder for inhalation losartan 25 mg tablet 25 mg PO BID 07/16/23 12/31/23 History ondansetron 4 mg disintegrating 8 mg PO TID PRN nausea 07/16/23 12/31/23 History tablet hydroxyzine HCl 25 mg tablet 25 mg PO DIRECTED PRN per 12/31/23 12/31/23 History patient Past Med/Surg History Problem List (Updated 12/31/23 @ 00:20 by José Miguel Adames MD) AMS (altered mental status) (Acute) Thoracic spondylosis Bilateral occipital neuralgia Chronic daily headache Opioid dependence Thoracic back pain Myofascial pain Acute hyponatremia (Acute) Chronic pain disorder (Chronic) CKD (chronic kidney disease) stage 3, GFR 30-59 ml/min Hyponatremia (Acute) Hypertrophic cardiomyopathy (Chronic) Raynauds disease (Chronic) Hyperlipidemia (Chronic) HTN (hypertension) (Chronic) Encephalopathy (Acute) Altered mental status (Acute 05/30/13) Acute kidney injury (Acute 05/30/13) Hypomagnesemia (Acute) Hypokalemia (Acute) Hypophosphatemia (Acute) Malnutrition (Acute) Alcohol use (Chronic) Ulceration of oral mucosa (Acute) Medical History Vitamin D deficiency Mitral regurgitation Aortic stenosis Surgical History History of hysterectomy History of cholecystectomy Family History Other No pertinent family history Social History Smoking Status: Never smoker Second Hand Exposure: No; Do You Dip or Chew Tobacco: No; Hx Alcohol Use: Yes Alcohol type: wine Alcohol Intake Frequency Comment: was daily but pt reports cutting back over past few months Hx Substance Use: No Preferred Language: Belarusian Communication Ability: Effective Farm Loan 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 Required: No Beliefs That Will Affect Care: None marital status: Unknown Current Living Situation: Alone Current Living Situation Comment: High Rise Apartment Complex Other Information That Helps Us Care for You: No Feels Safe at Home: Yes Safety Concerns: Feels Safe At This Time Assistive Devices: Glasses Review of Systems Review of Systems: As per HPI, all other systems reviewed and negative Physical Exam Physical Exam: GENERAL: Comfortable, slightly anxious, no respiratory distress SKIN: Normal color, warm HEENT: [place] palpebral conjunctivae, no ptosis, dry buccal mucosa NECK : Supple, no tenderness CHEST : CTA, no tenderness HEART : Bradycardic, no obvious murmurs ABDOMEN: no distention, nontender EXTREMITIES : No LE swelling/tenderness, no other conspicuous deformities noted NEUROLOGIC : Coherent, no facial asymmetry, slightly hard of hearing, no other gross focality Results & Data Results & Data Vital Signs (Past 12 Hours) Vital Signs Temp Pulse Pulse Resp BP BP Pulse Ox 12/31/23 00:52 54 L 16 172/77 H 97 12/30/23 23:30 54 L 16 145/65 H 95 12/30/23 22:33 62 12/30/23 22:11 61 14 137/65 95 12/30/23 21:36 60 12 155/67 H 94 12/30/23 20:55 36.8 C 63 18 178/90 H 95 O2 Del Method 12/31/23 00:52 Room Air 12/30/23 23:30 Room Air 12/30/23 22:33 12/30/23 22:11 Room Air 12/30/23 21:36 Room Air 12/30/23 20:55 Room Air Laboratory Results Laboratory Results WBC 7.46 K/ul (4.8-10.8) 12/30/23 23:12 RBC 3.98 M/uL (4.20-5.40) L 12/30/23 23:12 Hgb 12.0 g/dl (12.0-16.0) 12/30/23 23:12 Hct 35.9 % (37.0-47.0) L 12/30/23 23:12 MCV 90.2 fL (80.0-100.0) 12/30/23 23:12 MCH 30.2 pg (25.0-34.0) 12/30/23 23:12 MCHC 33.4 g/dL (32.0-36.0) 12/30/23 23:12 RDW Std Deviation 39.4 fL (36.4-46.3) 12/30/23 23:12 RDW Coeff of Cindy 12.0 % (11.5-14.5) 12/30/23 23:12 Plt Count 323 K/uL (130-400) 12/30/23 23:12 MPV 8.9 fL (9.4-12.4) L 12/30/23 23:12 Immature Gran % (Auto) 0.3 % 12/30/23 23:12 Neut % (Auto) 70.9 % 12/30/23 23:12 Lymph % (Auto) 18.2 % 12/30/23 23:12 [place] % (Auto) 6.0 % 12/30/23 23:12 Eos % (Auto) 3.5 % 12/30/23 23:12 Baso % (Auto) 1.1 % 12/30/23 23:12 Neut # (Auto) 5.29 K/uL (1.40-6.50) 12/30/23 23:12 Lymph # (Auto) 1.36 K/uL (1.20-3.40) 12/30/23 23:12 [place] # (Auto) 0.45 K/uL (0.11-0.59) 12/30/23 23:12 Eos # (Auto) 0.26 K/uL (0.00-0.50) 12/30/23 23:12 Baso # (Auto) 0.08 K/uL (0.00-0.20) 12/30/23 23:12 Immature Gran # (Auto) 0.02 K/uL (0.01-0.20) 12/30/23 23:12 Absolute Nucleated RBC Cancelled 12/30/23 21:42 Nucleated RBC % (auto) Cancelled 12/30/23 21:42 Neutrophils % (Manual) Cancelled 12/30/23 21:42 Band Neutrophils % Cancelled 12/30/23 21:42 Lymphocytes % (Manual) Cancelled 12/30/23 21:42 Prolymphocyte % Cancelled 12/30/23 21:42 Reactive Lymphs % (Man) Cancelled 12/30/23 21:42 Monocytes % (Manual) Cancelled 12/30/23 21:42 Eosinophils % (Manual) Cancelled 12/30/23 21:42 Basophils % (Manual) Cancelled 12/30/23 21:42 Metamyelocytes % (Man) Cancelled 12/30/23 21:42 Myelocytes % (Man) Cancelled 12/30/23 21:42 Promyelocytes % (Man) Cancelled 12/30/23 21:42 Blast Cells % (Manual) Cancelled 12/30/23 21:42 Plasma Cell % (Manual) Cancelled 12/30/23 21:42 Other Cells % Cancelled 12/30/23 21:42 Nucleated RBC % Cancelled 12/30/23 21:42 Neutrophils # (Manual) Cancelled 12/30/23 21:42 Band Neutrophils # Cancelled 12/30/23 21:42 Total Absolute Neuts Cancelled 12/30/23 21:42 Lymphocytes # (Manual) Cancelled 12/30/23 21:42 Prolymphocyte # Cancelled 12/30/23 21:42 Reactive Lymphs # Cancelled 12/30/23 21:42 Total Abs Lymphocytes Cancelled 12/30/23 21:42 Monocytes # (Manual) Cancelled 12/30/23 21:42 Eosinophils # (Manual) Cancelled 12/30/23 21:42 Basophils # (Manual) Cancelled 12/30/23 21:42 Metamyelocytes # (Man) Cancelled 12/30/23 21:42 Myelocytes # (Manual) Cancelled 12/30/23 21:42 Promyelocytes # (Man) Cancelled 12/30/23 21:42 Blast Cells # (Man) Cancelled 12/30/23 21:42 Plasma Cell # (Manual) Cancelled 12/30/23 21:42 Other Cells # Cancelled 12/30/23 21:42 Nucleated RBCs # (Man) Cancelled 12/30/23 21:42 Hypersegmented Neuts Cancelled 12/30/23 21:42 Hyposegmented Neuts Cancelled 12/30/23 21:42 Hypogranular Neuts Cancelled 12/30/23 21:42 Large Granular Lymphs Cancelled 12/30/23 21:42 # Lrg Granular Lymphs Cancelled 12/30/23 21:42 Hairy Cells Cancelled 12/30/23 21:42 Smudge Cells Cancelled 12/30/23 21:42 Toxic Granulation Cancelled 12/30/23 21:42 Toxic Vacuolation Cancelled 12/30/23 21:42 Dohle Bodies Cancelled 12/30/23 21:42 Pinky Rods Cancelled 12/30/23 21:42 Platelet Estimate Cancelled 12/30/23 21:42 Hypogranular Platelets Cancelled 12/30/23 21:42 Giant Platelets Cancelled 12/30/23 21:42 Platelet Satelliting Cancelled 12/30/23 21:42 RBC Morphology Cancelled 12/30/23 21:42 Polychromasia Cancelled 12/30/23 21:42 Hypochromasia Cancelled 12/30/23 21:42 Poikilocytosis Cancelled 12/30/23 21:42 Basophilic Stippling Cancelled 12/30/23 21:42 Anisocytosis Cancelled 12/30/23 21:42 Microcytosis Cancelled 12/30/23 21:42 Macrocytosis Cancelled 12/30/23 21:42 Spherocytes Cancelled 12/30/23 21:42 Pappenheimer Bodies Cancelled 12/30/23 21:42 Sickle Cells Cancelled 12/30/23 21:42 Target Cells Cancelled 12/30/23 21:42 Tear Drop Cells Cancelled 12/30/23 21:42 Ovalocytes Cancelled 12/30/23 21:42 Stomatocytes Cancelled 12/30/23 21:42 [place] Bodies Cancelled 12/30/23 21:42 Echinocytes Cancelled 12/30/23 21:42 Acanthocytes (Spur) Cancelled 12/30/23 21:42 Rouleaux Cancelled 12/30/23 21:42 RBC Agglutinates Cancelled 12/30/23 21:42 Schistocytes Cancelled 12/30/23 21:42 Sezary Cell Cancelled 12/30/23 21:42 PT 10.9 Seconds (9.0-12.0) 12/30/23 21:42 INR 1.0 (0.9-1.1) 12/30/23 21:42 APTT 26 Seconds (21-31) 12/30/23 21:42 PTT Ratio 1.0 12/30/23 21:42 Sodium 129 mmol/L (136-145) L 12/30/23 21:42 Potassium 4.1 mmol/L (3.5-5.1) 12/30/23 21:42 Chloride 97 mmol/L (98-107) L 12/30/23 21:42 Carbon Dioxide 24 mmol/L (21-32) 12/30/23 21:42 Anion Gap 8 (3-11) 12/30/23 21:42 BUN 13 mg/dl (6-23) 12/30/23 21:42 Creatinine 0.83 mg/dl (0.6-1.2) 12/30/23 21:42 Est Cr Clr Drug Dosing 36.2 ml/min 12/30/23 21:42 Est GFR ( Amer) 75.1 ml/min 12/30/23 21:42 Est GFR (Non-Af Amer) 64.8 ml/min 12/30/23 21:42 BUN/Creatinine Ratio 15.7 (10-20) 12/30/23 21:42 Glucose 94 mg/dl (70-99(Fasting)) 12/30/23 21:42 Calcium 9.2 mg/dl (8.6-10.3) 12/30/23 21:42 Magnesium 1.6 mg/dl (1.7-2.4) L 12/30/23 21:42 Total Bilirubin 0.5 mg/dl (0.2-1.0) 12/30/23 21:42 AST 28 U/L (13-39) 12/30/23 21:42 ALT 12 U/L (7-52) 12/30/23 21:42 Alkaline Phosphatase 56 U/L (34-104) 12/30/23 21:42 Troponin I High Sens 8.1 pg/ml (0-14) 12/30/23 21:42 Total Protein 7.0 gm/dl (6.0-8.3) 12/30/23 21:42 Albumin 4.2 gm/dl (3.4-5.0) 12/30/23 21:42 Globulin 2.8 gm/dl (2.5-4.0) 12/30/23 21:42 Albumin/Globulin Ratio 1.5 (0.9-2) 12/30/23 21:42 TSH 5.948 uIu/ml (0.300-4.500) H 12/30/23 21:42 Urine Color Yellow 12/30/23 23:55 Urine Appearance Clear (Clear) 12/30/23 23:55 Urine pH 6.0 (4.5-7.5) 12/30/23 23:55 Ur Specific [place] 1.004 (1.000-1.030) 12/30/23 23:55 Urine Protein Negative (Negative) 12/30/23 23:55 Urine Glucose (UA) Negative (Negative) 12/30/23 23:55 Urine Ketones Negative (Negative) 12/30/23 23:55 Urine Blood Negative (Negative) 12/30/23 23:55 Urine Nitrite Negative (Negative) 12/30/23 23:55 Urine Bilirubin Negative (Negative) 12/30/23 23:55 Urine Urobilinogen Negative (Negative) 12/30/23 23:55 Ur Leukocyte Esterase Trace (Negative) H 12/30/23 23:55 Urine WBC (Auto) 0-5 /hpf (0-5) 12/30/23 23:55 Urine RBC (Auto) 0-2 /hpf (0-2) 12/30/23 23:55 U Hyaline Cast (Auto) 0-2 /lpf (0-2) 12/30/23 23:55 U Epithel Cells (Auto) 0-2 /hpf (0-2) 12/30/23 23:55 Urine Bacteria (Auto) None Seen (None Seen) 12/30/23 23:55 Blood Parasites ID Cancelled 12/30/23 21:42 Diagnostic Findings EKG as per my interpretation : Rate 60, NSR, normal axis, no ischemia
[2023-12-31] MEDS ORDERED: PROMETHAZINE HCL 6.25 MG in SODIUM CHLORIDE 0.9% 50 ML IV PRN (01:06)
[2023-12-31] MEDS ORDERED: ACETAMINOPHEN 325 MG TAB PO PRN (01:06)
[2023-12-31] MEDS: hydrALAZINE HCL 20 MG/ML VIAL IV ONE (01:17)
[2023-12-31] MEDS: LORazepam 0.5 MG TAB PO STA (01:17)
--- NOTE | 2023-12-31 01:33 | CT Scan Report ---
Exam(s): CT HEAD Without Contrast EXAM: CT Head Without Intravenous Contrast CLINICAL HISTORY: Reason for exam: AMS. TECHNIQUE: Axial computed tomography images of the head/brain without intravenous contrast. Automated exposure control was utilized for the study. A dose lowering technique was utilized adhering to the principles of ALARA. COMPARISON: No relevant prior studies available. FINDINGS: No acute intracranial hemorrhage. No midline shift or mass effect. The territorial morales-white matter differentiation is maintained throughout. Age-related cerebral volume loss. Periventricular and subcortical white matter hypoattenuation, consistent with chronic microangiopathy. The visualized orbits appear grossly unremarkable. The calvarium is intact. The visualized paranasal sinuses and mastoid air cells are grossly clear. IMPRESSION: No acute intracranial hemorrhage, midline shift, or mass effect. Electronically signed by: Orlin Knight MD 12/31/23 01:32 AM
[2023-12-31] MEDS ORDERED: ARTIFICIAL TEARS OP PRN (01:38)
[2023-12-31 02:29] LABS: T4 Free Thyroxine 0.91 ng/dl (0.61-1.60)
--- NOTE | 2023-12-31 05:52 | Ultrasound Report ---
Exam(s): US VENOUS LEFT LOWER EXTREMITY EXAM: US Duplex Left Lower Extremity Veins CLINICAL HISTORY: Swelling. TECHNIQUE: Real-time duplex ultrasound scan of the left lower extremity veins integrating B-mode two-dimensional vascular structure, Doppler spectral analysis, color flow Doppler imaging and compression. COMPARISON: No relevant prior studies available. FINDINGS: Deep veins: Unremarkable. No Deep vein thrombosis in the visualized common femoral, femoral, proximal deep femoral or popliteal veins. The veins demonstrate normal color flow, are normally compressible, with normal phasic flow and/or augmentation response. Superficial veins: Unremarkable. No thrombus in the visualized great saphenous vein. Soft tissues: No acute findings. No popliteal cyst. IMPRESSION: No deep vein thrombosis of the left lower extremity. Electronically signed by: Shira Kapoor MD 12/31/23 05:50 AM
[2023-12-31 07:02] LABS: Basophils # (auto) 0.06 K/uL (0.00-0.20); Basophils % (auto) 1.1 %; Eosinophils # (auto) 0.25 K/uL (0.00-0.50); Eosinophils % (auto) 4.4 %; Hematocrit (blood only) 31.2 % (37.0-47.0); Hemoglobin 10.5 g/dl (12.0-16.0); Immature Granulocytes # (auto) 0.01 K/uL (0.01-0.20); Immature Granulocytes % (auto) 0.2 %; Lymphocytes # (auto) 1.97 K/uL (1.20-3.40); Lymphocytes % (auto) 34.6 %; Mean Corpuscular Hgb Conc 33.7 g/dL (32.0-36.0); Mean Corpuscular Volume 89.1 fL (80.0-100.0); Mean Platelet Volume 9.1 fL (9.4-12.4); Monocytes # (auto) 0.68 K/uL (0.11-0.59); Neutrophils # (auto) 2.72 K/uL (1.40-6.50); Neutrophils % (auto) 47.7 %; Platelet Count 280 K/uL (130-400); RDW Coefficient of Variation 11.8 % (11.5-14.5); RDW Standard Deviation 37.7 fL (36.4-46.3); White Blood Count 5.69 K/ul (4.8-10.8)
[2023-12-31 07:17] LABS: BUN Creatinine Ratio 15.5 (10-20); Calcium 8.2 mg/dl (8.6-10.3); Creatinine Clr Calc Pharmacy 42.4 ml/min; Est GFR (African American) 90.7 ml/min; Est GFR (Non-African American) 78.2 ml/min; Potassium 3.9 mmol/L (3.5-5.1)
[2023-12-31] MEDS: busPIRone 15 MG TAB PO SCH (08:01)
[2023-12-31] MEDS: ENOXAPARIN INJ 30 MG/0.3 ML SYR SQ SCH (08:01)
[2023-12-31] MEDS: LOSARTAN POTASSIUM 25 MG TAB PO SCH (08:01)
[2023-12-31] MEDS: DULoxetine HCL 30 MG CAP PO SCH (08:02)
[2023-12-31] MEDS: METOPROLOL TARTRATE 25 MG TAB PO SCH (08:02)
[2023-12-31] MEDS: ESCITALOPRAM OXALATE 20 MG TAB PO SCH (08:03)
[2023-12-31] MEDS: ESCITALOPRAM OXALATE 10 MG TAB PO SCH (08:03)
[2023-12-31] MEDS: oxyCODONE HCL IR 5 MG TAB (IMMEDIATE RELEASE) PO PRN (08:06)
--- NOTE | 2023-12-31 08:41 | XRay Report ---
XR chest 1V not portable HISTORY: Weakness COMPARISON: Chest 06/19/2020. FINDINGS: No pneumothorax. The heart remains mildly enlarged. There are trace bilateral pleural effus ions. No new focal lung consolidations to suggest a pneumonia. Mild interstitial thickening at the bernie ng bases may represent developing congestive change. No acute fractures. IMPRESSION: 1. Cardiomegaly with trace bilateral pleural effusions. 2. Mild interstitial thickening at the lung bases could represent early congestive change. ACT 112: Negative or not required by law. Electronically signed by: Kennedy Adams M.D. 12/31/2023 8:40 AM
[2023-12-31] MEDS: MAGNESIUM CHLORIDE W/CALCIUM 64MG DELAYED REL TAB PO SCH (10:47)
--- NOTE | 2023-12-31 12:46 | Electrocardiogram Report ---
Test Reason : Blood Pressure : / mmHG Vent. Rate : 059 BPM Atrial Rate : 059 BPM P-R Int : 152 ms QRS Dur : 078 ms QT Int : 462 ms P-R-T Axes : 055 014 065 degrees QTc Int : 457 ms Sinus bradycardia Minimal voltage criteria for LVH, may be normal variant Borderline ECG When compared with ECG of 19-JUN-2020 16:28, No significant change was found Confirmed by Serg Mcintyre ([id number]) on 12/31/2023 12:46:04 PM Referred By: REFERRED SELF Confirmed By:Marino Mcintyre
--- OUTSIDE RECORDS SUMMARY | 2023-12-31 15:17 | External Medical Summary | Summary of Care ---
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 Name Role Phone Edilia Kenyon MD Primary Care Provider + Reason for Visit * Reason Onset Date Comments Medication Refill 12/27/2023 Encounter Details Date Type Department Care Team (Late st Contact Info) Description 12/27/2023 Refill General Internal Medicine [facility] [address] [facility] [place] [address] Edilia Kenyon MD [address] [place] [address] Nausea without vomiting Allergies Active Allergy Reactions Criticality Noted Date Comments Baudilio Inhibitors Edema face/lips/tongue High 0 Ibuprofen Anaphylaxis High 01/07/1999 Mirtazapine 08/25/2019 Dizziness,lightheaded Pravachol Liver complications (Please comment),Other (Please comment) High 11/15/2009 elev LFT and rhabdomyolysis Protonix Iv 11/26/2006 Edema and pruritis Quinapril 06/27/2010 Salicylates Anaphylaxis High 01/07/1999 Simvastatin Muscle pain 10/20/2010 Valacyclovir Hcl Renal complications High 06/12/2013 Acute renal failure requiring dialysis, also hallucinations Verapamil 10/04/2019 Lower extremity swelling documented as of this encounter (statuses as of 12/29/2023) Medications Medication Sig Dispensed Refills Start Date End Date Status HM Vitamin D3 100 MCG (4000 UT) Oral Capsule (Cholecalciferol) Take by mouth . Active Fluticasone Propionate 50 MCG/ACT Nasal Suspension (Flonase) Administer 1 Earling into nostril in the morning and 1 Earling before bedtime. 15.8 mL 3 10/14/2022 Active Azelastine HCl 0.1 % Nasal Solution (Astelin) Administer 2 Sprays into nostril in the morning and 2 Sprays before bedtime. 30 mL 12 10/14/2022 Active oxyCODONE HCl 5 MG Oral Tablet (Oxy IR) Take 1 Tablet by mouth every 6 hours as needed for Pain, Severe. 20 Tablet 11/14/2022 Active DULoxetine HCl 30 MG Oral Capsule Delayed Release Particles (Cymbalta)Indicatio ns:Moderate episode of recurrent major depressive disorder (HCC) Take 1 Capsule by mouth in the morning. Do not cut, crush or chew. 90 Capsule 3 01/28/2023 Active Escitalopram Oxalate 10 MG Oral Tablet (Lexapro) One pill once daily along with Lexapro 20 mg daily( Total dose of 30 mg daily) 90 Tablet 3 02/02/2023 Active Escitalopram Oxalate 20 MG Oral Tablet (Lexapro)Indication s:Current episode of major depressive disorder without prior episode, unspecified depression episode severity Take 1 Tablet by mouth in the morning. 90 Tablet 2 04/18/2023 Active Zoster Vac Recomb Adjuvanted 50 MCG/0.5ML Intramuscular Suspension Reconstituted (Shingrix)Indicatio ns:Need for vaccination for zoster Inject 0.5 mL into a large muscle now and repeat dose in 60 to 180 days 1 Each 1 05/06/2023 Active Furosemide 20 MG Oral Tablet (Lasix) Take 1 tablet daily on Wednesday, Wednesday, and Wednesday. 30 Tablet 5 06/09/2023 Active Fenofibrate Micronized 67 MG Oral CapsuleIndications: Hypertensive heart 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 failure,Dyslipidemi a, goal LDL below 130,History of tobacco use Take 1 Capsule by mouth in the morning. 90 Capsule 3 07/19/2023 Active Omeprazole 40 MG Oral Capsule Delayed Release (PriLOSEC) Take 1 Capsule by mouth in the morning. 90 Capsule 3 2023 Active Metoprolol Tartrate 50 MG Oral Tablet (Lopressor)Indicati ons:Hypertensive heart 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 failure,Dyslipidemi a, goal LDL below 130,History of tobacco use take 1 tablet by mouth twice a day (in the morning and before bedtime) 180 Tablet 3 10/11/2023 Active busPIRone HCl 15 MG Oral Tablet (Buspar)Indications :Depression with anxiety Take 1 Tablet by mouth in the morning and 1 Tablet at noon and 1 Tablet before bedtime. 90 Tablet 10/25/2023 Active hydrOXYzine HCl 25 MG Oral TabletIndications:A nxiety state Take 1 Tablet by mouth 2 times a day as needed for Anxiety. 60 Tablet 2 11/04/2023 Active Ezetimibe 10 MG Oral Tablet (Zetia)Indications: Dyslipidemia, goal LDL below 130 TAKE 1 TABLET ONCE DAILY FOR CHOLESTEROL 90 Tablet 3 11/11/2023 Active Losartan Potassium 25 MG Oral Tablet (Cozaar)Indications :HTN, goal below 140/90,Hypertrophic cardiomyopathy (HCC),Nonrheumatic mitral valve regurgitation Take 1 Tablet by mouth in the morning and 1 Tablet before bedtime. 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 Continued script 90 Tablet 12/09/2023 Active Ondansetron HCl 4 MG Oral Tablet (Zofran)Indications :Nausea without vomiting TAKE 2 TABLETS 3 X A DAY NEEDED FOR NAUSEA 50 Tablet 1 12/29/2023 Active Ondansetron HCl 4 MG Oral Tablet (Zofran)Indications :Nausea without vomiting TAKE 2 TABLETS 3 X A DAY NEEDED FOR NAUSEA 50 Tablet 1 10/27/2023 4 Discontinu ed(Refill) documented as of this encounter (statuses as of 12/29/2023) Active Problems Problem Noted Date Diagnosed Date Prediabetes 09/28/2022 Overview: Per Prediabetes protocol Other specified peripheral vascular diseases 08/2021 Chronic kidney disease, stage 3a 06/30/2021 Overview: Per CKD protocol Hypertensive heart and kidne y 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 failure and with stage 3a chronic kidney disease 06/02/2021 Overview: Per CKD protocol PMB (postmenopausal bleeding) 10/08/2020 Moderate episode of recurrent major depressive d isorder 06/27/2020 Migraine without aura, intractable 06/27/2020 Age-related osteoporosis wit hout current pathological fracture 01/18/2020 Anxiety state 01/18/2020 Controlled substance agreement signed 04/18/2019 History of colon polyps 08/29/2018 HTN, goal below 140/90 07/13/2018 Gastroesophageal reflux disease 07/13/2018 Peripheral vascular disease 11/20/2016 Overview: ICD-10 update of inactive term History of tobacco use 10/20/2010 Dyslipidemia, goal LDL below 130 03/05/2010 Vitamin D deficiency 01/02/2010 Overview: 25 [place] Vitamin D of 17 ng/ml in 2007 Hypertrophic cardiomyopathy 12/17/2006 ADVANCE DIRECTIVE INFORMATION 12/29/2005 Overview: Advised to bring copy in to be scanned into EMR Pulmonary arterial hypertension documented as of this encounter (statuses as of 12/29/2023) Resolved Problems Problem Noted Date Diagnosed Date Resolved Date Prediabetes 03/31/2021 06/05/2021 Overview: Per Prediabetes protocol Hypertensive heart and chron ic kidney disease stage 3 06/30/2018 06/05/2021 Overview: Per CKD protocol Kidney disease, chronic, sta ge III (GFR 30-59 ml/min) 10/01/2014 07/08/2018 Overview: Per CKD protocol #1 Chest discomfort 04/24/2014 11/20/2016 Palpitations 08/18/2012 11/20/2016 Chronic cholecystitis 03/31/20122016 Chronic pain syndrome 04/24/20112019 Hyperparathyroidism 10/28/2009 11/08/19 22 Overview: ICD-10 update of inactive term Pain in limb 05/13/2009 04/20/2011 Hypertensive heart disease 04/18/2009 1 Overview: Per Heart Failure Taxonomy Protocol. Dyslipidemia, goal to be determined 09/19/2007 04/20/2011 Edema 06/29/2007 11/20/2016 Chest pain, musculoskeletal 06/29/2007 11/20/2016 Hypertensive heart disease, severity unknown 7 11/20/2016 BENIGN NEOPLASM LG BOWEL 12/05/200404/2019 Lump or mass in breast 09/15/200211/20 Corns and callosities 09/15/20022008 BACKACHE NOS 03/25/2000 11/20/2016 SATYA HYPERTEN HRT DIS NOS 03/25/2000 Overview: Per Heart Failure Taxonomy Protocol. Renal failure, acute 015 Overview: requiring hemodialysis, thought d/t Valtrex documented as of this encounter (statuses as of 12/29/2023) Immunizations Name Administration Dates Next Due COVID-19 mRNA, LNP-s, No Pre serve, 2-Dose Series (Pfizer) 08/20/2020,07/30/2020 Pneumococcal Conjugate Vacc, 13 Valent (Prevnar) 09/13/2014 Pneumococcal Polysaccharide PPV23 (Pneumovax) 05/21/2006 Season Influenza, Quad, PF, Adjuvanted, 65+ Yrs, IM (FLUAD) 02/29/2020 Seasonal Influenza, PF, 6 M & above, IM , (FluLaval or Fluzone) 06/02/2018 Seasonal Influenza, Quadriva lent Hd (Fluzone Hd) 03/19/2023,02/26/2022,05/23/2021 Seasonal Influenza, Quadriva lent, No Preserve, IM 02/25/2017,04/09/2016 Seasonal Influenza, Split, I IV3, With Preserve, Inj 02/22/2015,03/07/2014,03/14/2013,03/07,04/24/2011,03/05/2010,04/19/2009 ,04/28/2007,05/21/2006 Seasonal Influenza, Trivalen t, Adjuvanted, 65+ yrs 04/18/2019 TDAP (age 10 and older)(Boostrix) 05/06/2023 TDAP, Age 7 and older, IM (Adacel) 09/29/2011 Varicella Zoster Vaccine (Adult) 05/28/2009 documented as of this encounter Social History Tobacco Use Types Packs/Day Years Used Date Smoking Tobacco: Former Cigarettes Q uit: 07/10/2000 Smokeless Tobacco: Never Comments:quit 2000 long time smoker prior Alcohol Use Standard Drinks/Week Comments Yes 0 (1 standard drink = 0.6 oz pur e alcohol) socially, a beer every week AUDIT-C Answer Date Recorded Frequency of Alcohol Consumption Never 08/04/2018 Average Number of Drinks Not on file 019 Frequency of Binge Drinking Not on file 07/22 PHQ-2 Answer Date Recorded PHQ-2 Score 2 02/29/2020 Hunger Vital Sign Answer Date Recorded Worried About Running Out of Food in the Last Ye ar Never true 07/28/2019 Ran Out of Food in the Last Year Never true 07/28/2019 Utilities Answer Date Recorded Do you have trouble paying y our heating, water, or electric bill? (Adult - for ages 18 years and over) Not on file 12/07/2023 Is your family able to pay t he heat, water, or electric bill? (Household - for ages 0-17 years) Not on file 12/07/2023 Does your family have access to good internet? (Household - for ages 0-17 years) Not on file 12/07/2023 Social Connections Answer Date Recorded How often do you feel lonely or isolated from those around you? (Adult - for ages 18 years and over) Not on file 12/07/2023 Sex and Gender Information Value Date Recorded Sex Assigned at Female 09/12/2018 4:25 PM EDT Gender Identity Female 09/12/2018 4:25 PM EDT Sexual Orientation Straight 09/12/2018 4: 25 PM EDT Job Start Date Occupation Industry Not on file Not on file Not on file documented as of this encounter Miscellaneous Notes * Telephone Encounter - Augusta You MD - 12/29/2023 1:59 PM EDTSigned Prescriptions: Disp Refills Ondansetron HCl 4 MG Oral Tablet (Zofran) 50 Tab*1 Sig: TAKE 2 TABLETS 3 X A DAY NEEDED FOR NAUSEA Authorizing Provider: AUGUSTA YOU * Telephone Encounter - Becca Fuchs [facility] - 12/29/2023 8:45 AM EDTPending Prescriptions: Disp Refills Ondansetron HCl 4 MG Oral Tablet (Zofran) 50 Tab*1 Sig: TAKE 2 TABLETS 3 X A DAY NEEDED FOR NAUSEA * Telephone Encounter - Becca Fuchs [facility] - 12/29/2023 8:44 AM EDT Unable to authorize medication refills for pended medication(s) at this time. Part of the protocol criteria used for refill authorization was not satisfied. Patient concurrently taking Escitalopram and Hydroxyzine which may increase risk of QT prolongation when given with Ondansetron. Please approve if appropriate. Thank you, Becca Fuchs, PharmD Clinical Pharmacist [facility] [phone] 12/29/2023, 8:44 AM Pending Prescriptions: Disp Refills Ondansetron HCl 4 MG Oral Tablet (Zofran) 50 Tab*1 Sig: TAKE 2 TABLETS 3 X A DAY NEEDED FOR NAUSEA Last Visit: 11/04/2023 (in office), Visit date not found (telemedicine) Next Visit: 04/13/2024 If no future appointments scheduled, and last appointment is greater than a year ago, please schedule patient for a follow-up appointment Last date the medication was ordered: 10/27/2023 Pharmacy: [id number] Is this request for a controlled substance? No Urine Drug Screen: Results for orders placed or performed in visit on 05/06/23 PAIN MANAGEMENT DRUG PANEL, URINE W/ INTERPRETATION Result Value Compliance Interpretation Based on the medication information provided: The positive oxycodone screening result is CONSISTENT with oxycodone use. Confirmatory LC-MS/MS testing is available upon request. The presence of lorazepam is CONSISTENT with lorazepam use. Amphetamines Screen, U Negative Benzodiazepines Screen, U Refer to confirmation results (A) Cannabinoids Screen, U Negative Cocaine Metabolite Screen, U Negative Fentanyl Screen, U Negative Hydrocodone Screen, U Negative Methadone Metabolite Screen, U Negative Morphine/Codeine Screen, U Negative Oxycodone Screen, U Positive (A) Valid Interpretation Normal Creatinine, U 83 Narrative Cutoff Concentrations: Drug Level Amphetamines 500 ng/mL Benzodiazepines 100 ng/mL Cannabinoids 50 ng/mL Cocaine Metabolite 150 ng/mL Fentanyl 1 ng/mL Hydrocodone / Hydromorphone 300 ng/mL Methadone Metabolite 100 ng/mL Morphine / Codeine 300 ng/mL Oxycodone / Oxymorphone 100 ng/mL Screening results are presumptive and can only be used for medical purposes. Confirmatory testing is available upon request. Results for orders placed or performed in visit on 07/28/19 TOX SCREEN, URINE, W/ CONFIRMATION Result Value Amphetamine NEGATIVE Benzodiazepines NEGATIVE Cannabinoids NEGATIVE Cocaine Metabolite NEGATIVE HYDROCODONE NEGATIVE Morphine / Codeine NEGATIVE METHADONE METABOLITE NEGATIVE OXYCODONE POSITIVE (A) TOX COMMENT THE ABOVE SCREENING RESULTS ARE PRESUMPTIVE AND CAN ONLY BE USED FOR MEDICAL PURPOSES. POSITIVE RESULTS REFLEX TO CONFIRMATORY TESTING. Cutoff Concentration *Note: Due to a large number of results and/or encounters for the requested time period, some results have not been displayed. A complete set of results can be found in Results Review. Patient Phone Numbers mobile [phone] Labs: Lab Results Component Value Date/Time CREAT 0.8 05/04/2023 01:50 PM CREAT 1.3 (H) 07/18/2020 12:47 PM POTASSIUM 4.5 05/04/2023 01:50 PM POTASSIUM 5.2 (H) 07/18/2020 12:47 PM TSH 1.84 03/25/2020 12:47 PM LDLCALC 79 10/01/2020 02:42 PM LDLCALC 90 09/04/2019 03:31 PM LDLDIRECT 84 05/04/2023 01:50 PM LDLDIRECT NOT APPLICABLE 05/25/2019 02:16 PM LDLDIRECT 106 02/20/2015 04:33 PM ALT 17 05/04/2023 01:50 PM ALT 22 06/17/2020 03:13 PM HGBA1C 5.8 (H) 08/31/2022 10:23 AM HGBA1C 5.6 09/04/2019 03:31 PM documented in this encounter Plan of Treatment Upcoming Encounters Date Type Department Care Team (Late st Contact Info) Description 01/11/2024 1:30 PM EDT Office Visit Sleep Disorders Ctr [facility] [place] [address] [place] [id number] Cassandra Thakkar CRNP [address] [place] [address] 01/18/2024 2:00 PM EDT Telemedicine Psychology [facility] [address] [place] [address] Yenifer Pettit LCSW [address] [place] [address] 04/13/2024 1:40 PM EDT Office Visit General Internal Medicine [facility] [place] [address] [place] [address] Edilia Kenyon MD [address] [facility] [place] [address] 08/24/2024 11:40 AM EST Office Visit Nephrology, Stef[facility] Luciano [address] [place] [address] Jordyn Santillan MD [address] [facility] [place] [address] Health Maintenance Due Date Last Done Comments Zoster Vaccines (2 of 3) 07/23/2009 05/28/2009 Depression Monitoring 02/28/2021 02/29/2020 COVID-19 Vaccine (3 - season) 2023 08/20/2020, 07/30/2020 CKD HGB USE SMARTSET 31387 09/01/202308/31, 12/17/2021, 12/17/2021, Additional history exists HbA1c 09/01/2023 08/31/2022, 02/20, 09/04/2019 GFR 11/02/2023 05/04/2023, 08/19, 08/24/2022, Additional history exists Influenza Vaccine (FLU shot) (#1) 2024 03/19/2023, 02/26/2022, 05/23/2021, Additional history exists CKD PHOS USE SMARTSET 76134 05/04/202404/21, 12/17/2021, 08/20/2021, Additional history exists Albumin/Creatinine Ratio 05/06/2024 023, 04/09/2016, 02/20/2015 DXA Scan 04/21/2025 04/21/2023, 1106/2022, 08/16/2019, Additional history exists DTaP,Tdap,and Td Vaccines (3 - Td or Tdap) 05/06/2033 05/06/2023, 09/29/2011 Hepatitis B Vaccine Completed 11/03/2002, 06/05/2002, 05/05/2002 Pneumococcal Vaccine: 65+ Years Completed 09/13/2014, 05/21/2006 VITAMIN D LEVEL ONCE IN A LIFETIME-USE SMARTSET# [id number] Completed 05/04/2023, 12/17/2021, 03/25/2020, Additional history exists HPV (Gardasil) Vaccine Aged Out No lo nger eligible based on patient's age to complete this topic MENINGOCOCCAL (MENACTRA/MENVEO) Aged Out No longer eligible based on patient's age to complete this topic documented as of this encounter Medical Devices Not on filedocumented as of this encounter Visit Diagnoses Diagnosis Nausea without vomiting documented in this encounter Advance Directives Documents on File Type Date Recorded 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
--- OUTSIDE RECORDS SUMMARY | 2023-12-31 15:17 | External Medical Summary | Summary of Care ---
Author Name Unknown Organization [facility] Address [address] [place] [address] Phone [phone] Care Team Providers Care Restaurant General Manager Name Role Phone Edilia Kenyon MD Primary Care Provider + Reason for Visit * Reason Onset Date Comments Advice 12/21/2023 Encounter Details Date Type Department Care Team (Late st Contact Info) Description 12/21/2023 Telephone General Internal Medicine [facility] [address] [facility] [place] [address] Edilia Kenyon MD [address] [place] [address] Advice Allergies Active Allergy Reactions Criticality Noted Date [...] as of this encounter (statuses as of 12/28/2023) Medications Medication Sig Dispensed Refills Start Date End Date Status HM Vitamin D3 100 MCG (4000 UT) Oral Capsule (Cholecalciferol) Take by mouth . Active Fluticasone Propionate 50 MCG/ACT Nasal Suspension (Flonase) Administer 1 [place] into nostril in the morning and 1 [place] before bedtime. 15.8 mL 3 10/14/2022 Active [...] 30 MG Oral Capsule Delayed Release Particles (Cymbalta)Indication s:Moderate episode of recurrent major depressive disorder (HCC) Take 1 Capsule by mouth in the morning. Do not cut, crush or chew. 90 Capsule 3 01/28/2023 Active Escitalopram Oxalate 10 MG Oral Tablet (Lexapro) One pill once daily along with Lexapro 20 mg daily( Total dose of 30 mg daily) 90 Tablet 3 02/02/2023 Active Escitalopram Oxalate 20 MG Oral Tablet (Lexapro)Indications :Current episode of major depressive disorder without prior episode, unspecified depression episode severity Take 1 Tablet by mouth in the morning. 90 Tablet 2 04/18/2023 Active Zoster Vac Recomb Adjuvanted 50 MCG/0.5ML Intramuscular Suspension Reconstituted (Shingrix)Indication s:Need for vaccination for zoster Inject 0.5 mL into a large muscle now and repeat dose in 60 to 180 days 1 Each 1 05/06/2023 Active Furosemide 20 MG Oral Tablet (Lasix) Take 1 tablet daily on Wednesday, Wednesday, and Wednesday. 30 Tablet 5 06/09/2023 Active Fenofibrate Micronized 67 MG Oral CapsuleIndications:H ypertensive heart 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 failure,Dyslipidemia , goal LDL below 130,History of tobacco use Take 1 Capsule by mouth in the morning. 90 Capsule 3 07/19/2023 Active Omeprazole 40 MG Oral Capsule Delayed Release (PriLOSEC) Take 1 Capsule by mouth in the morning. 90 Capsule 3 2023 Active Metoprolol Tartrate 50 MG Oral Tablet (Lopressor)Indicatio ns:Hypertensive heart 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 failure,Dyslipidemia , goal LDL below 130,History of tobacco use take 1 tablet by mouth twice a day (in the morning and before bedtime) 180 Tablet 3 10/11/2023 Active busPIRone HCl 15 MG Oral Tablet (Buspar)Indications: Depression with anxiety Take 1 Tablet by mouth in the morning and 1 Tablet at noon and 1 Tablet before bedtime. 90 Tablet 10/25/2023 Active Ondansetron HCl 4 MG Oral Tablet (Zofran)Indications: Nausea without vomiting TAKE 2 TABLETS 3 X A DAY NEEDED FOR NAUSEA 50 Tablet 1 10/27/2023 Active hydrOXYzine HCl 25 MG Oral TabletIndications:An xiety state Take 1 Tablet by mouth 2 times a day as needed for Anxiety. 60 Tablet 2 11/04/2023 Active Ezetimibe 10 MG Oral Tablet (Zetia)Indications:D yslipidemia, goal LDL below 130 TAKE 1 TABLET ONCE DAILY FOR CHOLESTEROL 90 Tablet 3 11/11/2023 Active Losartan Potassium 25 MG Oral Tablet (Cozaar)Indications: HTN, goal below 140/90,Hypertrophic cardiomyopathy (HCC),Nonrheumatic mitral valve regurgitation Take 1 Tablet by mouth in the morning and 1 Tablet before bedtime. 180 Tablet 3 11/23/2023 Active Xiidra 5 % Ophthalmic Solution (Lifitegrast) place 1 drop into both eyes twice a day 180 Each 1 12/03/2023 Active LORazepam 0.5 MG Oral Tablet (Ativan)Indications: JAYLYN (generalized anxiety disorder) TAKE ONE TABLET BY MOUTH AT BEDTIME NEEDED FOR INSOMNIA 30 Tablet 12/09/2023 Active oxyCODONE HCl 5 MG Oral Tablet (Oxy IR)Indications:Chron ic upper back pain Take 1 Tablet by mouth every 8 hours as needed for Pain, Moderate. Continued script 90 Tablet 12/09/2023 Active documented as of this encounter (statuses as of 12/28/2023) Active Problems Problem Noted Date Diagnosed Date [...] as of this encounter (statuses as of 12/28/2023) Resolved Problems Problem Noted Date Diagnosed Date [...] as of this encounter (statuses as of 12/28/2023) Immunizations Name Administration Dates Next Due COVID-19 mRNA, LNP-s, No Pre serve, 2-Dose Series ([place]) 08/20/2020,07/30/2020 Hepatitis B, 20+ yrs 11/03/2002,06/05/2002,05/05 Pneumococcal Conjugate Vacc, 13 Valent (Prevnar) 09/13/2014 Pneumococcal Polysaccharide PPV23 (Pneumovax) 05/21/2006 Season Influenza, Quad, PF, Adjuvanted, 65+ Yrs, IM (FLUAD) 02/29/2020 Seasonal Influenza Virus Vac cine, Unspecified Formulation 04/16/1998 Seasonal Influenza, PF, 6 M & above, IM , (FluLaval or Fluzone) 06/02/2018 Seasonal Influenza, Quadriva lent Hd (Fluzone Hd) 03/19/2023,02/26/2022,05/23/2021 Seasonal Influenza, Quadriva lent, No Preserve, IM 02/25/2017,04/09/2016 Seasonal Influenza, Split, I IV3, With Preserve, Inj 02/22/2015,03/07/2014,03/14/2013,03/07,04/24/2011,03/05/2010,04/19/2009 ,04/28/2007,05/21/2006,04/08/1999 Seasonal Influenza, Trivalen t, Adjuvanted, 65+ yrs [...] encounter Miscellaneous Notes * Telephone Encounter - Omid Browning OSA - 12/28/2023 8:50 AM EDT LMOM12/28/23 2 contact attempts made - unable to reach - Letter Sent * Telephone Encounter - Omid Browning OSA - 12/27/2023 8:56 AM EDT LMOM 12/27/23 * Telephone Encounter - Jeannette Vargas MED ASSIST - 12/22/2023 10:29 AM EDT Please assist with scheduling * Telephone Encounter - Edilia Kenyon MD - 12/22/2023 9:03 AM EDT Schedule an appointment with any provider available today any clinic, preferably our dept. * Telephone Encounter - Lucy Woodruff LPN - 12/21/2023 3:57 PM EDT Call Details Patient's Action(s) What have you done or taken for this problem? Salt water Additional Comment(s) Additional Comments: Patient's mouth is extremely ulcerated and she can't brush her teeth and eating. Roof of mouth is like raw meat. Patient Request Patient Requesting: Appointment * Telephone Encounter - Jinny Cook OSA - 12/21/2023 3:21 PM EDT No Appointments Available Patient declined appointments?: No What Visit Type is needed? Acute If Acute Visit Type is needed, were surrounding clinics offered to patient (Yes/No)? No, explain noacute available Was patient offered appointments with other available providers (Yes/No)? No, explain no appointments available See Call Details? (Yes or No): Yes documented in this encounter Plan of Treatment Upcoming Encounters Date Type Department Care Team (Late st Contact Info) Description 01/11/2024 1:30 PM EDT Office Visit [facility] Disorders C[facility] [place] [address] [place] [phone] Cassandra Thakkar CRNP [address] [place] [address] 01/18/2024 2:00 PM EDT Telemedicine Psychology [address] [place] [address] [place] [phone] Yenifer Pettit LCSW [address] [place] [address] 04/13/2024 1:40 PM EDT Office Visit General Internal Medicine [facility] [place] [address] [facility] [place] [address] Edilia Kenyon MD [address] [facility] [place] [address] 08/24/2024 11:40 AM EST Office Visit Nephrology, [facility] [address] [facility] [place] [address] Jordyn Santillan MD [address] [facility] [place] [address] Health Maintenance Due Date Last Done Comments Zoster Vaccines (2 of 3) 07/23/2009 05/28/2009 Depression Monitoring 02/28/2021 02/29/2020 COVID-19 Vaccine ( season) 2023 08/20/2020, 07/30/2020 CKD HGB USE SMARTSET 10508 09/01/202308/31, 12/17/2021, 12/17/2021, Additional history exists HbA1c 09/01/2023 08/31/2022, 02/20, 09/04/2019 GFR 11/02/2023 05/04/2023, 08/19, 08/24/2022, Additional history exists Influenza Vaccine (FLU shot) (#1) 2024 03/19/2023, 02/26/2022, 05/23/2021, Additional history exists CKD PHOS USE SMARTSET 40146 05/04/202404/21, 12/17/2021, 08/20/2021, Additional history exists Albumin/Creatinine Ratio 05/06/2024 023, 04/09/2016, 02/20/2015 DXA Scan 04/21/2025 04/21/2023, 06/2022, 08/16/2019, Additional history exists DTaP,Tdap,and Td Vaccines (3 - Td or Tdap) 05/06/2033 05/06/2023, 09/29/2011 Hepatitis B Vaccine Completed 11/03/2002, 06/05/2002, 05/05/2002 Pneumococcal Vaccine: 65+ Years Completed 09/13/2014, 05/21/2006 VITAMIN D LEVEL ONCE IN A LIFETIME-USE SMARTSET# [id number] Completed 05/04/2023, 12/17/2021, 03/25/2020, Additional history exists HPV (Gardasil) Vaccine Aged Out No lo nger eligible based on patient's age to complete this topic MENINGOCOCCAL (MENACTRA/MENVEO) Aged Out No longer eligible based on patient's age to complete this topic documented as of this encounter Medical Devices Not on filedocumented as of this encounter Advance Directives Documents on File Type Date Recorded Patient Outreach And Education Social Worker Expl anation Advance Directives and Livin g Will 12/25/2018 LIVING WILL Power of Woodyard Operator 12/25/2018 POWER OF A TTORNEY Care Teams Restaurant General Manager Relationship Specialty Start Date End Date Edilia Kenyon MD [address] [place] [address] PCP - General Internal Medicine 07/28/19 documented as of this encounter
--- OUTSIDE RECORDS SUMMARY | 2023-12-31 15:18 | External Medical Summary | Summary of Care ---
Author Name Unknown Organization [facility] Address [address] [place] [facility] [place] [address] Phone [phone] Care Team Providers Care Supervisor Rubber Covering Name Role Phone Edilia Kenyon MD Primary Care Provider + Reason for Visit * Reason Onset Date Comments Medication Refill 12/07/2023 Encounter Details Date Type Department Care Team (Late st Contact Info) Description 12/07/2023 Refill General Internal Medicine [facility] [address] [facility] [place] [address] Edilia Kenyon MD [address] [place] [place] [address] JAYLYN (generalized anxiety disorder); Chronic upper back pain Allergies Active Allergy Reactions Criticality Noted Date [...] as of this encounter (statuses as of 12/09/2023) Medications Medication Sig Dispensed Refills Start Date End Date Status HM Vitamin D3 100 MCG (4000 UT) Oral Capsule (Cholecalciferol) Take by mouth . Active Fluticasone Propionate 50 MCG/ACT Nasal Suspension (Flonase) Administer 1 [place] into nostril in the morning and 1 [place] before bedtime. 15.8 mL 3 10/14/2022 Active [...] 10/27/2023 Active hydrOXYzine HCl 25 MG Oral TabletIndications:A [...] oxyCODONE HCl 5 MG Oral Tablet (Oxy IR)Indications:Warehouse Unloader christopher upper back pain Take 1 Tablet by mouth every 8 hours as needed for Pain, Moderate. Continued script 90 Tablet 12/09/2023 Active LORazepam 0.5 MG Oral Tablet (Ativan)Indications :JAYLYN (generalized anxiety disorder) TAKE ONE TABLET BY MOUTH AT BEDTIME NEEDED FOR INSOMNIA 30 Tablet 11/10/2023 4 Discontinu ed(Refill) oxyCODONE HCl 5 MG Oral Tablet (Oxy IR)Indications:Warehouse Unloader christopher upper back pain Take 1 Tablet by mouth every 8 hours as needed for Pain, Moderate. Continued script 90 Tablet 11/10/2023 4 Discontinu ed(Refill) documented as of this encounter (statuses as of 12/09/2023) Active Problems Problem Noted Date Diagnosed Date [...] as of this encounter (statuses as of 12/09/2023) Resolved Problems Problem Noted Date Diagnosed Date [...] as of this encounter (statuses as of 12/09/2023) Immunizations Name Administration Dates Next Due COVID-19 mRNA, LNP-s, No Pre serve, 2-Dose Series ([place]) 08/20/2020,07/30/2020 Pneumococcal Conjugate Vacc, 13 Valent (Prevnar) [...] encounter Miscellaneous Notes * Telephone Encounter - Edilia Kenyon MD - 12/09/2023 3:38 PM EDTSigned Prescriptions: Disp Refills LORazepam 0.5 MG Oral Tablet (Ativan) 30 Tab*0 Sig: TAKE ONE TABLET BY MOUTH AT BEDTIME NEEDED FOR INSOMNIAAuthorizing Provider: EDILIA KENYON oxyCODONE HCl 5 MG Oral Tablet (Oxy IR) 90 Tab*0 Sig: Take 1 Tablet by mouth every 8 hours as needed for Pain,Moderate. Continued scriptAuthorizing Provider: EDILIA KENYON * Telephone Encounter - Edilia Kenyon MD - 12/09/2023 3:37 PM EDTSigned Prescriptions: Disp Refills LORazepam 0.5 MG Oral Tablet (Ativan) 30 Tab*0 Sig: TAKE ONE TABLET BY MOUTH AT BEDTIME NEEDED FOR INSOMNIA Authorizing Provider: EDILIA KENYON oxyCODONE HCl 5 MG Oral Tablet (Oxy IR) 90 Tab*0 Sig: Take 1 Tablet by mouth every 8 hours as needed for Pain, Moderate. Continued script Authorizing Provider: EDILIA KENYON * Telephone Encounter - Jessie Riggins, [employer] - 12/09/2023 3:08 PM EDT Pt requesting HIGH PRIORITY due to being out of medication. Pt calling to check on status of LORazepam 0.5 MG Oral Tablet (Ativan) and oxyCODONE HCl 5 MG Oral Tablet (Oxy IR) 90 Tab* Caller can be reached at [phone]. Thank you, Jessie Riggins Cafeteria Supervisor I [facility] 12/09/2023,3:08 PM * Telephone Encounter - Ida Arndt [facility] - 12/08/2023 8:51 AM EDTPending Prescriptions: Disp Refills LORazepam 0.5 MG Oral Tablet (Ativan) 30 Tab*0 Sig: TAKE ONE TABLET BY MOUTH AT BEDTIME NEEDED FOR INSOMNIA oxyCODONE HCl 5 MG Oral Tablet (Oxy IR) 90 Tab*0 Sig: Take 1 Tablet by mouth every 8 hours as needed for Pain, Moderate. Continued script --- * Telephone Encounter - Ida Arndt [facility] - 12/08/2023 8:51 AM EDT I have reviewed the patients controlled substance dispensing history in the Prescription Drug Monitoring Program in compliance with the [facility] regulations before prescribing a controlled substance. PDMP checked on 12/08/2023. Pending Prescriptions: Disp Refills LORazepam 0.5 MG Oral Tablet (Ativan) 30 Tab*0 Sig: TAKE ONE TABLET BY MOUTH AT BEDTIME NEEDED FOR INSOMNIA oxyCODONE HCl 5 MG Oral Tablet (Oxy IR) 90 Tab*0 Sig: Take 1 Tablet by mouth every 8 hours as needed for Pain, Moderate. Continued script Last Visit: 11/04/2023 (in office), Visit date not found (telemedicine) Next Visit: 04/13/2024 Date medication was last filled: 11/12/23 Date medication is due for refill: 12/11/23 Pharmacy: [facility] [address] [place], [place] [address]Destin ROMERO Is this request for a controlled substance? Yes and Urine Drug Screen was completed Toxicology results: Results for orders placed or performed in [...] results can be found in Results Review. Please approve if appropriate. Ida Nguyễn Clinical Pharmacist [facility] ([facility]) [phone] 12/08/2023, 8:51 AM documented in this encounter Plan of Treatment Upcoming Encounters Date Type Department Care Team (Late st Contact Info) Description 01/11/2024 1:30 PM EDT Office Visit Sleep Disorders Ctr [facility] [address] [place] [address] Cassandra Thakkar CRNP [address] [place] [address] 01/18/2024 2:00 PM EDT Telemedicine Psychology [address], [place] [address] [place] [phone] Yenifer Pettit LCSW [address] [place] [address] 04/13/2024 1:40 PM EDT Office Visit General Internal Medicine [facility] [address] [facility] [place] [address] Edilia Kenyon MD [address] [facility] [place] [place] [address] 08/24/2024 11:40 AM EST Office Visit Nephrology, [facility] [address] [facility] [place] [address] Jordyn Santillan MD [address] [place] [address] Health Maintenance Due Date Last Done Comments Zoster Vaccines (2 of 3) 07/23/2009 05/28/2009 Depression Monitoring 02/28/2021 02/29/2020 COVID-19 Vaccine ( season) 2023 08/20/2020, 07/30/2020 CKD HGB USE SMARTSET 63239 09/01/202308/31, 12/17/2021, 12/17/2021, Additional history exists HbA1c 09/01/2023 08/31/2022, 02/20, 09/04/2019 GFR 11/02/2023 05/04/2023, 08/19, 08/24/2022, Additional history exists CKD PHOS USE SMARTSET 22162 05/04/202404/21, 12/17/2021, 08/20/2021, Additional history exists Albumin/Creatinine Ratio 05/06/2024 023, 04/09/2016, 02/20/2015 DXA Scan 04/21/2025 04/21/2023, 06/2022, 08/16/2019, Additional history exists DTaP,Tdap,and Td Vaccines (3 - Td or Tdap) 05/06/2033 05/06/2023, 09/29/2011 Hepatitis B Completed 11/03/2002, 05/21, 05/05/2002 Pneumococcal Vaccine: 65+ Years Completed 09/13/2014, 05/21/2006 Influenza Vaccine (FLU shot) Completed , 02/26/2022, 05/23/2021, Additional history exists VITAMIN D LEVEL ONCE IN A LIFETIME-USE SMARTSET# 55650 Completed 05/04/2023, 12/17/2021, 03/25/2020, Additional history exists GARDASIL-HPV IMMUNIZATION SERIES Aged Out No longer eligible based on patient's age to complete this topic MENINGOCOCCAL (MENACTRA/MENVEO) Aged Out No longer eligible based on patient's age to complete this topic documented as of this encounter Medical Devices Not on filedocumented as of this encounter Visit Diagnoses Diagnosis JAYLYN (generalized anxiety disorder) Generalized anxiety disorder Chronic upper back pain Backache, unspecified documented in this encounter Advance Directives Documents on File Type Date Recorded Patient Ear Specialist Expl anation Advance Directives and Livin g Will 12/25/2018 LIVING WILL Power of Pool Table Mechanic 12/25/2018 POWER OF A TTORNEY Care Teams Supervisor Rubber Covering Relationship Specialty Start Date End Date Edilia Kenyon MD [address] [place] [address] PCP - General Internal Medicine 07/28/19 documented as of this encounter
--- OUTSIDE RECORDS SUMMARY | 2023-12-31 15:18 | External Medical Summary | Summary of Care ---
Author Name Unknown Organization [facility] Address [address] [facility] [place] [address] Phone [phone] Care Team Providers Care Coding Specialist Home Health Name Role Phone Edilia Kenyon MD Primary Care Provider + Reason for Visit * Reason Onset Date Comments Test Results 12/09/2023 Encounter Details Date Type Department Care Team (Late st Contact Info) Description 12/09/2023 Telephone Cardiology, [facility] [address] [place] [address] Sam Mendoza, [address] [place] [address] Test Results Allergies Active Allergy Reactions Criticality Noted Date [...] as of this encounter (statuses as of 12/10/2023) Medications Medication Sig Dispensed Refills Start Date End Date Status HM Vitamin D3 100 MCG (4000 UT) Oral Capsule (Cholecalciferol) Take by mouth . Active Fluticasone Propionate 50 MCG/ACT Nasal Suspension (Flonase) Administer 1 [place] into nostril in the morning and 1 [place] before bedtime. 15.8 mL 3 10/14/2022 Active [...] as of this encounter (statuses as of 12/10/2023) Active Problems Problem Noted Date Diagnosed Date [...] as of this encounter (statuses as of 12/10/2023) Resolved Problems Problem Noted Date Diagnosed Date [...] as of this encounter (statuses as of 12/10/2023) Immunizations Name Administration Dates Next Due COVID-19 mRNA, LNP-s, No Pre serve, 2-Dose Series ([place]) 08/20/2020,07/30/2020 Pneumococcal Conjugate Vacc, 13 Valent (Prevnar) [...] encounter Miscellaneous Notes * Telephone Encounter - Deirdre Dupont CMA - 12/09/2023 3:40 PM EDT ----- Message from Sam Mendoza DO sent at 12/09/2023 3:03 PM EDT ----- Stable echo findings. Normal left ventricular systolic function with moderate mitral regurgitation. Unchanged compared toprior echo. Continue current medications. Follow-up as scheduled. documented in this encounter Plan of Treatment Upcoming Encounters Date Type Department Care Team (Late st Contact Info) Description 01/11/2024 1:30 PM EDT Office Visit Sleep Disorders Ctr [facility] [address] [place] [phone] Cassandra Thakkar CRNP [address] [place] [address] 01/18/2024 2:00 PM EDT Telemedicine Psychology [facility] [address] [place] [address] Yenifer Pettit LCSW [address] [place] [address] 04/13/2024 1:40 PM EDT Office Visit General Internal Medicine [facility] [address] [facility] [address] Edilia Kenyon MD [address] [facility] [address] 08/24/2024 11:40 AM EST Office Visit Nephrology, [facility] [address] [facility] [address] Jordyn Santillan MD [address] [facility] [address] Health Maintenance Due Date Last Done Comments Zoster Vaccines (2 of 3) 07/23/2009 05/28/2009 Depression Monitoring 02/28/2021 02/29/2020 COVID-19 Vaccine ( season) 2023 08/20/2020, 07/30/2020 CKD HGB USE SMARTSET 84255 09/01/202308/31, 12/17/2021, 12/17/2021, Additional history exists HbA1c 09/01/2023 08/31/2022, 02/20, 09/04/2019 GFR 11/02/2023 05/04/2023, 08/19, 08/24/2022, Additional history exists CKD PHOS USE SMARTSET 21733 05/04/202404/21, 12/17/2021, 08/20/2021, Additional history exists Albumin/Creatinine Ratio 05/06/2024 023, 04/09/2016, 02/20/2015 DXA Scan 04/21/2025 04/21/2023, 11/0 06/2022, 08/16/2019, Additional history exists DTaP,Tdap,and Td Vaccines (3 - Td or Tdap) 05/06/2033 05/06/2023, 09/29/2011 Hepatitis B Completed 11/03/2002, 05/21, 05/05/2002 Pneumococcal Vaccine: 65+ Years Completed 09/13/2014, 05/21/2006 Influenza Vaccine (FLU shot) Completed , 02/26/2022, 05/23/2021, Additional history exists VITAMIN D LEVEL ONCE IN A LIFETIME-USE SMARTSET# 55528 Completed 05/04/2023, 12/17/2021, 03/25/2020, Additional history exists GARDASIL-HPV IMMUNIZATION SERIES Aged Out No longer eligible based on patient's age to complete this topic MENINGOCOCCAL (MENACTRA/MENVEO) Aged Out No longer eligible based on patient's age to complete this topic documented as of this encounter Medical Devices Not on filedocumented as of this encounter Advance Directives Documents on File Type Date Recorded Patient Rubber Goods Tester Water Expl anation Advance Directives and Livin g Will 12/25/2018 LIVING WILL Power of Rn Transfer 12/25/2018 POWER OF A TTORNEY Care Teams Coding Specialist Home Health Relationship Specialty Start Date End Date Edilia Kenyon MD [address] [place] [address] PCP - General Internal Medicine 07/28/19 documented as of this encounter
--- OUTSIDE RECORDS SUMMARY | 2023-12-31 15:18 | External Medical Summary | Summary of Care ---
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 Name Role Phone Edilia Kenyon MD Primary Care Provider + Reason for Visit * Reason Onset Date Comments Advice 12/21/2023 Encounter Details Date Type Department Care Team (Late st Contact Info) Description 12/21/2023 Telephone General Internal Medicine [facility] [address] [place] [address] Edilia Kenyon MD [address] [facility] [place] [address] Advice Allergies Active Allergy Reactions Criticality Noted [...] as of this encounter (statuses as of 12/27/2023) Medications Medication Sig Dispensed Refills Start Date End Date Status HM Vitamin D3 100 MCG (4000 UT) Oral Capsule (Cholecalciferol) Take by mouth . Active Fluticasone Propionate 50 MCG/ACT Nasal Suspension (Flonase) Administer 1 [place] into nostril in the morning and 1 [place] before bedtime. 15.8 mL 3 10/14/2022 Active [...] as of this encounter (statuses as of 12/27/2023) Active Problems Problem Noted Date Diagnosed Date [...] as of this encounter (statuses as of 12/27/2023) Resolved Problems Problem Noted Date Diagnosed Date [...] as of this encounter (statuses as of 12/27/2023) Immunizations Name Administration Dates Next Due COVID-19 [...] PM EDT Office Visit [facility] [address] [place] [phone] Cassandra Thakkar CRNP [address] [place] [address] 01/18/2024 2:00 PM EDT Telemedicine Psychology Cielo Barnes [address] [phone] Yenifer Pettit LCSW [address] [place] [address] 04/13/2024 1:40 PM EDT Office Visit General Internal Medicine [facility] [place] [address] [place] [address] Edilia Kenyon MD [address] [place] [address] 08/24/2024 11:40 AM EST Office Visit Nephrology, [facility] [address] [place] [address] Jordyn Santillan MD [address] [place] [address] Health Maintenance Due Date Last Done Comments Zoster Vaccines (2 of 3) 07/23/2009 05/28/2009 Depression Monitoring 02/28/2021 02/29/2020 COVID-19 Vaccine ( season) 2023 08/20/2020, 07/30/2020 CKD HGB USE SMARTSET 06610 09/01/202308/31, 12/17/2021, 12/17/2021, Additional history exists HbA1c 09/01/2023 08/31/2022, 02/20, 09/04/2019 GFR 11/02/2023 05/04/2023, 08/19, 08/24/2022, Additional history exists Influenza Vaccine (FLU shot) (#1) 2024 03/19/2023, 02/26/2022, 05/23/2021, Additional history exists CKD PHOS USE SMARTSET 30635 05/04/202404/21, 12/17/2021, 08/20/2021, Additional history exists Albumin/Creatinine Ratio 05/06/202405/06/2 023, 04/09/2016, 02/20/2015 DXA Scan 04/21/2025 04/21/2023, 11/06/2022, 08/16/2019, Additional history exists DTaP,Tdap,and Td Vaccines (3 - Td or Tdap) 05/06/2033 05/06/2023, 09/29/2011 Hepatitis B Vaccine Completed 11/03/2002, 06/05/2002, 05/05/2002 Pneumococcal Vaccine: 65+ Years Completed 09/13/2014, 05/21/2006 VITAMIN D LEVEL ONCE IN A LIFETIME-USE SMARTSET# [id number] Completed 05/04/2023, 12/17/2021, 03/25/2020, Additional history exists HPV (Gardasil) Vaccine Aged Out No lo nger eligible based on patient's age to complete this topic MENINGOCOCCAL (MENACTRA/MENVEO) Aged Out No longer eligible based on patient's age to complete this topic documented as of this encounter Medical Devices Not on filedocumented as of this encounter Advance Directives Documents on File Type Date Recorded 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
--- NOTE | 2023-12-31 15:58 | Hospitalist Progress Note ---
Date of Service December 31, 2023 Assessment & Plan (1) Encephalopathy: Plan: Transient Unresponsiveness Unclear etiology DD: Syncope/Seizure/R/O CVA/hypertensive encephalopathy/neuro psychotropic meds --CT Head:No acute intracranial hemorrhage, midline shift, or mass effect. --MRI brain: pending Mental status back to baseline No obvious source of infection Mental status back to baseline EEG pending Continue losartan, metoprolol If MRI negative for CVA, will adjust hypertensive medications as needed Monitor BP closely Neurology consulted Mild hyponatremia Acute on chronic hyponatremia H/O SIADH Continue fluid restriction Monitor sodium levels Alcohol intake Denies any excess use Monitor Hypertrophic Cardiomyopathy Venous Doppler showed no DVT Continue home medications Monitor volume status Follows with [facility] cardiology as outpatient Hyperlipidemia on statin Pulmonary hypertension PVD Anxiety/mood disorder, at baseline Continue home medications Prediabetes Last HbA1c 5.8 DVT Px: Lovenox SQ Code Status Full Code Disposition PT OT prior to discharge Admission and Anticipated Discharge Date Admission Date: December 31, 2023 Subjective Patient is seen and examined at bedside Admits to have some headache Also noted elevated blood pressure today MRI brain pending Reports chronic back pain Denies any focal weakness, chest pain, dyspnea Family at bedside No other complaints Review of Systems Review of Systems: All systems reviewed & are unremarkable except as noted in Subjective Physical Exam Physical Exam: Physical Exam: Vitals signs as noted above General Appearance: Thin, frail, elderly, no apparent distress Head: normocephalic, Atraumatic Eyes: normal inspection, EOMI Neck: supple, Trachea midline Respiratory/Chest: Normal breath sounds, CTA, No accessory muscle use Cardiovascular: S1, S2, + murmur, +Bradycardia Abdomen/GI:Soft, Non tender, Bowel sounds present Extremities/Musculoskeletal:normal inspection, 1+ pedal edema Neurologic/Psych:AAOX3, grossly no focal neurological deficits Skin: normal color, warm Results & Data Results & Data Vital Signs (Past 12 Hours) Vital Signs Temp Pulse Pulse Resp BP Pulse Ox O2 Del Method 12/31/23 15:03 36.8 C 57 L 18 180/75 H 98 Room Air 12/31/23 11:41 56 L 12 204/75 H 96 Room Air 12/31/23 08:07 55 L 12/31/23 06:59 56 L Laboratory Results Short CBC 12/30/23 12/30/23 12/31/23 Range/Units 21:42 23:12 05:43 WBC Cancelled 7.46 5.69 Hgb Cancelled 12.0 10.5 L Hct Cancelled 35.9 L 31.2 L Plt Count Cancelled 323 280 BMP 12/30/23 12/31/23 21:42 05:43 Sodium 129 L 135 L Potassium 4.1 3.9 Chloride 97 L 103 Carbon Dioxide 24 26 BUN 13 11 Creatinine 0.83 0.71 Glucose 94 84 Calcium 9.2 8.2 L Liver Function 12/30/23 Range/Units 21:42 Total Bilirubin 0.5 (0.2-1.0) mg/dl AST 28 (13-39) U/L ALT 12 (7-52) U/L Alkaline Phosphatase 56 (34-104) U/L Albumin 4.2 (3.4-5.0) gm/dl Urine 12/30/23 Range/Units 23:55 Urine Color Yellow Urine Appearance Clear (Clear) Urine pH 6.0 (4.5-7.5) Ur Specific [place] 1.004 (1.000-1.030) Urine Protein Negative (Negative) Urine Glucose (UA) Negative (Negative)
--- NOTE | 2023-12-31 16:55 | Neurology Consultation ---
Date of Consultation December 31, 2023 Assessment & Plan (1) Episode of altered cognition: Transient alteration of awareness in the setting of intake of multiple [employer]IST depressants and alcohol. Hypotension, medication effect, seizure? Plan MRI of the brain with and without contrast is pending. EEG is less likely to provide more insight. Medication adjustment. Do not restart Cymbalta at the patient has not been taking it for a long time. Advised against alcohol intake. Recommend evaluation for psych medications by psychiatry. No need for antiepileptic medications Telehealth Consultation Telehealth Information Telehealth Information: I performed this visit using a real-time telehealth connection between my location and the patients location ([facility]). After connecting through interactive tele-video, patient was identified by name and date of and/or wristband check.Patient (or authorized healthcare quality control representative) was informed that this was a telemedicine visit and it was being conducted confidentially over secure lines. My office door was closed and no one else was present in the room with me.Patient (or authorized healthcare quality control representative) provided consent to proceed with the visit, expressed an understanding of privacy and security of the telemedicine visit, and gave permission to have a hospital quality control representative in the room in order to assist with the visit and to conduct portions of the visit, as needed. I informed the patient (or authorized healthcare quality control representative) that I reviewed their record and presented the opportunity for them to ask any questions regarding the visit today. The patient agreed to participate. History of Present Illness Reason for Consultation: Episode of altered sensorium Requesting Physician: Dr Regan Attending Physician: German Regan MD History of Present Illness 83-year-old female patient with PMH of hypertrophic cardiomyopathy, HTN, HLP, pulmonary hypertension, chronic hyponatremia with SIADH, anxiety disorder, prediabetes and chronic back pain who presented to the hospital with an episode of blank staring while she was with her friends with transient unresponsiveness with no witnessed tongue biting or incontinence. She states that she was sitting with her friends outside on the balcony and having a glass of wine , and the next thing she remembers that she went to inside of the house, open the fridge and was surprised to see chocolate ice cream. She thought that she was in her own house where she was at the friend's house. According to the patient this would not have happened before. No previous PMH of seizures the patient is on lorazepam, oxycodone, buspirone, duloxetine, and escitalopram 30 mg. She reports taking oxycodone 3 times a day, recently prescribed hydrocodone. She does drink 1 or 2 drinks every other night. Allergies Allergy/AdvReac Type Severity Reaction Status Date / Time aspirin Allergy Severe Hives Verified 10/13/23 14:51 NSAIDS (Non-Steroidal Allergy Severe Anaphylaxis Verified 10/13/23 14:51 Anti-Inflamma NOEL Inhibitors Allergy Unknown HIVES, Verified 10/13/23 14:51 SWELLING OF FACE ibuprofen Allergy Unknown Hives Verified 10/13/23 14:51 pantoprazole Allergy Unknown Unknown Verified 10/13/23 14:51 [id number]-[id number] Reductase Allergy Unknown "arms and Verified 10/13/23 14:51 Inhibitor legs achy" [Pxtgpvu-Bqt-Hju Reductase Inhibitor] pravastatin [From Pravachol] AdvReac Severe liver Verified 10/13/23 14:51 complications gabapentin AdvReac Unknown Edema Verified 10/13/23 14:51 valacyclovir [From Valtrex] AdvReac Unknown Kidneys Verified 10/13/23 14:51 shut down Home Medications Medication Instructions Recorded Confirmed Type ezetimibe 10 mg tablet (Zetia) 10 mg PO HS 06/14/20 12/31/23 History fenofibrate micronized 67 mg 67 mg PO HS 06/14/20 12/31/23 History capsule lorazepam 0.5 mg tablet 0.5 mg sublingual HS PRN Insomnia 06/14/20 12/31/23 History omeprazole 40 mg capsule,delayed 40 mg PO QAM 06/14/20 12/31/23 History release oxycodone 5 mg tablet 5 mg PO Q8H PRN Pain 06/14/20 12/31/23 History lifitegrast 5 % eye drops in a 1 drp OPB BID 06/19/20 12/31/23 History dropperette (Xiidra) metoprolol tartrate 50 mg tablet 50 mg PO BID 06/19/20 12/31/23 History buspirone 15 mg tablet 15 mg PO BID 07/16/23 12/31/23 History cholecalciferol (vitamin D3) 100 100 mcg PO DAILY 07/16/23 12/31/23 History mcg (4,000 unit) tablet duloxetine 30 mg capsule,delayed 30 mg PO DAILY 07/16/23 12/31/23 History release escitalopram oxalate 10 mg tablet 10 mg PO DAILY 07/16/23 12/31/23 History escitalopram oxalate 20 mg tablet 20 mg PO DAILY 07/16/23 12/31/23 History fluticasone furoate 50 1 inh inhalation BID 07/16/23 12/31/23 History mcg/actuation blister powder for inhalation losartan 25 mg tablet 25 mg PO BID 07/16/23 12/31/23 History ondansetron 4 mg disintegrating 8 mg PO TID PRN nausea 07/16/23 12/31/23 History tablet hydroxyzine HCl 25 mg tablet 25 mg PO DIRECTED PRN per 12/31/23 12/31/23 History patient Patient History Medical History Vitamin D deficiency Mitral regurgitation Aortic stenosis Surgical History History of hysterectomy History of cholecystectomy Family History Other No pertinent family history Social History Smoking Status: Never smoker Second Hand Exposure: No; Do You Dip or Chew Tobacco: No; Hx Alcohol Use: Yes Alcohol type: wine Alcohol Intake Frequency Comment: was daily but pt reports cutting back over past few months Hx Substance Use: No Preferred Language: Bulgarian Communication Ability: Effective Application Counselor Required: No Beliefs That Will Affect Care: None marital status: Unknown Current Living Situation: Alone Current Living Situation Comment: High Rise Apartment Complex Feels Safe at Home: Yes Assistive Devices: Glasses Review of Systems Constitutional: Patient denies weight loss, fever, chills, and night sweats Eyes: Patient denies change in vision, tearing, pain, and redness ENT: Patient denies pain, bleeding, rhinorrhea, and dysphagia Cardiovascular: Patient denies chest pain, palpitation, dyspnea at rest, and dyspnea with exertion Respiratory: Patient denies shortness of breath, cough, wheezing, and productive cough GI: Patient denies reflux, pain, constipation, and diarrhea Skin: Patient denies rash, dryness, and itching Allergies/Immune System: Patient denies rhinorrhea, seasonal allergies, reaction to current MEDS, and joint swelling Endocrine: Patient denies weight loss, weight gain, temperature intolerance, and excessive thirst Neurological: All negative unless mentioned in the HPI Physical Exam General Constitutional: Appearance normally developed Head and face: normocephalic and atraumatic Eyes: no ptosis, no anisocoria, and no dysconjugate gaze Respiratory: normal effort Cardiovascular: regular rhythm and regular rate Abdomen: non distended Skin: no rashes, lesions, or ulcers noted Psychiatric: normal judgement and insight, normal mood, and normal affect NEUROLOGIC EXAMINATION: Mental Status:alert, oriented to time, place, person, normal recent memory, normal remote memory, normal attention span, normal concentration, normal language and normal fund of knowledge Cranial Nerves: CN 2 - no visual defect on confrontation and pupils round, equal, reactive to light CN 3, 4, 6 - extra-ocular movements intact and no nystagmus CN 5 - facial sensation intact CN 7 - no facial asymmetry CN 8 - intact hearing CN 9, 10 - palate symmetric, normal gag CN 11 - good shoulder shrug CN 12 - tongue midline MOTOR: Strength was at least antigravity throughout, Pronator drift was absent and There were no abnormal movements SENSATION: intact and symmetric to pinprick, light touch, vibration and joint position GAIT: stable, no ataxia and can perform tandem walking COORDINATION: no ataxia with finger to nose testing and heel to awad testing REFLEXES: cannot assess over telemedicine Results & Data Vital Signs (Past 12 Hours) Vital Signs Temp Pulse Pulse Resp BP Pulse Ox O2 Del Method 12/31/23 16:26 60 12/31/23 15:03 36.8 C 57 L 18 180/75 H 98 Room Air 12/31/23 11:41 56 L 12 204/75 H 96 Room Air 12/31/23 08:07 55 L 12/31/23 06:59 56 L Laboratory Results Laboratory Results - last 24 hr 12/30/23 12/30/23 12/30/23 21:42 23:12 23:55 WBC Cancelled 7.46 RBC Cancelled 3.98 L Hgb Cancelled 12.0 Hct Cancelled 35.9 L MCV Cancelled 90.2 MCH Cancelled 30.2 MCHC Cancelled 33.4 RDW Std Deviation Cancelled 39.4 RDW Coeff of Cindy Cancelled 12.0 Plt Count Cancelled 323 MPV Cancelled 8.9 L Immature Gran % (Auto) Cancelled 0.3 Neut % (Auto) Cancelled 70.9 Lymph % (Auto) Cancelled 18.2 [place] % (Auto) Cancelled 6.0 Eos % (Auto) Cancelled 3.5 Baso % (Auto) Cancelled 1.1 Neut # (Auto) Cancelled 5.29 Lymph # (Auto) Cancelled 1.36 [place] # (Auto) Cancelled 0.45 Eos # (Auto) Cancelled 0.26 Baso # (Auto) Cancelled 0.08 Immature Gran # (Auto) Cancelled 0.02 Absolute Nucleated RBC Cancelled Nucleated RBC % (auto) Cancelled Neutrophils % (Manual) Cancelled Band Neutrophils % Cancelled Lymphocytes % (Manual) Cancelled Prolymphocyte % Cancelled Reactive Lymphs % (Man) Cancelled Monocytes % (Manual) Cancelled Eosinophils % (Manual) Cancelled Basophils % (Manual) Cancelled Metamyelocytes % (Man) Cancelled Myelocytes % (Man) Cancelled Promyelocytes % (Man) Cancelled Blast Cells % (Manual) Cancelled Plasma Cell % (Manual) Cancelled Other Cells % Cancelled Nucleated RBC % Cancelled Neutrophils # (Manual) Cancelled Band Neutrophils # Cancelled Total Absolute Neuts Cancelled Lymphocytes # (Manual) Cancelled Prolymphocyte # Cancelled Reactive Lymphs # Cancelled Total Abs Lymphocytes Cancelled Monocytes # (Manual) Cancelled Eosinophils # (Manual) Cancelled Basophils # (Manual) Cancelled Metamyelocytes # (Man) Cancelled Myelocytes # (Manual) Cancelled Promyelocytes # (Man) Cancelled Blast Cells # (Man) Cancelled Plasma Cell # (Manual) Cancelled Other Cells # Cancelled Nucleated RBCs # (Man) Cancelled Hypersegmented Neuts Cancelled Hyposegmented Neuts Cancelled Hypogranular Neuts Cancelled Large Granular Lymphs Cancelled # Lrg Granular Lymphs Cancelled Hairy Cells Cancelled Smudge Cells Cancelled Toxic Granulation Cancelled Toxic Vacuolation Cancelled Dohle Bodies Cancelled Pinky Rods Cancelled Platelet Estimate Cancelled Hypogranular Platelets Cancelled Giant Platelets Cancelled Platelet Satelliting Cancelled RBC Morphology Cancelled Polychromasia Cancelled Hypochromasia Cancelled Poikilocytosis Cancelled Basophilic Stippling Cancelled Anisocytosis Cancelled Microcytosis Cancelled Macrocytosis Cancelled Spherocytes Cancelled Pappenheimer Bodies Cancelled Sickle Cells Cancelled Target Cells Cancelled Tear Drop Cells Cancelled Ovalocytes Cancelled Stomatocytes Cancelled [place] Bodies Cancelled Echinocytes Cancelled Acanthocytes (Spur) Cancelled Rouleaux Cancelled RBC Agglutinates Cancelled Schistocytes Cancelled Sezary Cell Cancelled PT 10.9 INR 1.0 APTT 26 PTT Ratio 1.0 Sodium 129 L Potassium 4.1 Chloride 97 L Carbon Dioxide 24 Anion Gap 8 BUN 13 Creatinine 0.83 Est Cr Clr Drug Dosing 36.2 Est GFR ( Amer) 75.1 Est GFR (Non-Af Amer) 64.8 BUN/Creatinine Ratio 15.7 Glucose 94 Calcium 9.2 Magnesium 1.6 L Total Bilirubin 0.5 AST 28 ALT 12 Alkaline Phosphatase 56 Troponin I High Sens 8.1 Total Protein 7.0 Albumin 4.2 Globulin 2.8 Albumin/Globulin Ratio 1.5 TSH 5.948 H Free T4 0.91 Urine Color Yellow Urine Appearance Clear Urine pH 6.0 Ur Specific [place] 1.004 Urine Protein Negative Urine Glucose (UA) Negative Urine Ketones Negative Urine Blood Negative Urine Nitrite Negative Urine Bilirubin Negative Urine Urobilinogen Negative Ur Leukocyte Esterase Trace H Urine WBC (Auto) 0-5 Urine RBC (Auto) 0-2 U Hyaline Cast (Auto) 0-2 U Epithel Cells (Auto) 0-2 Urine Bacteria (Auto) None Seen Ethyl Alcohol mg/dL < 10.0 Blood Parasites ID Cancelled 12/31/23 05:43 WBC 5.69 RBC 3.50 L Hgb 10.5 L Hct 31.2 L MCV 89.1 MCH 30.0 MCHC 33.7 RDW Std Deviation 37.7 RDW Coeff of Cindy 11.8 Plt Count 280 MPV 9.1 L Immature Gran % (Auto) 0.2 Neut % (Auto) 47.7 Lymph % (Auto) 34.6 [place] % (Auto) 12.0 Eos % (Auto) 4.4 Baso % (Auto) 1.1 Neut # (Auto) 2.72 Lymph # (Auto) 1.97 [place]verse # (Auto) 0.68 H Eos # (Auto) 0.25 Baso # (Auto) 0.06 Immature Gran # (Auto) 0.01 Absolute Nucleated RBC Nucleated RBC % (auto) Neutrophils % (Manual) Band Neutrophils % Lymphocytes % (Manual) Prolymphocyte % Reactive Lymphs % (Man) Monocytes % (Manual) Eosinophils % (Manual) Basophils % (Manual) Metamyelocytes % (Man) Myelocytes % (Man) Promyelocytes % (Man) Blast Cells % (Manual) Plasma Cell % (Manual) Other Cells % Nucleated RBC % Neutrophils # (Manual) Band Neutrophils # Total Absolute Neuts Lymphocytes # (Manual) Prolymphocyte # Reactive Lymphs # Total Abs Lymphocytes Monocytes # (Manual) Eosinophils # (Manual) Basophils # (Manual) Metamyelocytes # (Man) Myelocytes # (Manual) Promyelocytes # (Man) Blast Cells # (Man) Plasma Cell # (Manual) Other Cells # Nucleated RBCs # (Man) Hypersegmented Neuts Hyposegmented Neuts Hypogranular Neuts Large Granular Lymphs # Lrg Granular Lymphs Hairy Cells Smudge Cells Toxic Granulation Toxic Vacuolation Dohle Bodies Pinky Rods Platelet Estimate Hypogranular Platelets Giant Platelets Platelet Satelliting RBC Morphology Polychromasia Hypochromasia Poikilocytosis Basophilic Stippling Anisocytosis Microcytosis Macrocytosis Spherocytes Pappenheimer Bodies Sickle Cells Target Cells Tear Drop Cells Ovalocytes Stomatocytes [place] Bodies Echinocytes Acanthocytes (Spur) Rouleaux RBC Agglutinates Schistocytes Sezary Cell PT INR APTT PTT Ratio Sodium 135 L Potassium 3.9 Chloride 103 Carbon Dioxide 26 Anion Gap 6 BUN 11 Creatinine 0.71 Est Cr Clr Drug Dosing 42.4 Est GFR ( Amer) 90.7 Est GFR (Non-Af Amer) 78.2 BUN/Creatinine Ratio 15.5 Glucose 84 Calcium 8.2 L Magnesium Total Bilirubin AST ALT Alkaline Phosphatase Troponin I High Sens Total Protein Albumin Globulin Albumin/Globulin Ratio TSH Free T4 Urine Color Urine Appearance Urine pH Ur Specific [place] Urine Protein Urine Glucose (UA) Urine Ketones Urine Blood Urine Nitrite Urine Bilirubin Urine Urobilinogen Ur Leukocyte Esterase Urine WBC (Auto) Urine RBC (Auto) U Hyaline Cast (Auto) U Epithel Cells (Auto) Urine Bacteria (Auto) Ethyl Alcohol mg/dL Blood Parasites ID Diagnostic Findings Chest X-Ray 12/30/23 22:11 XR chest 1V not portable HISTORY: Weakness COMPARISON: Chest 06/19/2020. FINDINGS: No pneumothorax. The heart remains mildly enlarged. There are trace bilateral pleural effusions. No new focal lung consolidations to suggest a pneumonia. Mild interstitial thickening at the lung bases may represent developing congestive change. No acute fractures. IMPRESSION: 1. Cardiomegaly with trace bilateral pleural effusions. 2. Mild interstitial thickening at the lung bases could represent early congestive change. ACT 112: Negative or not required by law. Electronically signed by: Kennedy Adams M.D. 12/31/2023 8:[address] 12/30/23 23:03 Exam(s): CT HEAD Without Contrast EXAM: CT Head Without Intravenous Contrast CLINICAL HISTORY: Reason for exam: AMS. TECHNIQUE: Axial computed tomography images of the head/brain without intravenous contrast. Automated exposure control was utilized for the study. A dose lowering technique was utilized adhering to the principles of ALARA. COMPARISON: No relevant prior studies available. FINDINGS: No acute intracranial hemorrhage. No midline shift or mass effect. The territorial morlaes-white matter differentiation is maintained throughout. Age-related cerebral volume loss. Periventricular and subcortical white matter hypoattenuation, consistent with chronic microangiopathy. The visualized orbits appear grossly unremarkable. The calvarium is intact. The visualized paranasal sinuses and mastoid air cells are grossly clear. IMPRESSION: No acute intracranial hemorrhage, midline shift, or mass effect. Electronically signed by: Orlin Knight MD 12/31/23 01:32 AM
[2023-12-31] MEDS: GADOBUTROL 30ML VIAL IV ONE (17:54)
--- NOTE | 2023-12-31 18:12 | Magnetic Resonance Report ---
MRI OF THE BRAIN COMBO CLINICAL HISTORY: Strokelike symptoms. COMPARISON STUDY: CT of the brain dated 12/30/2023. TECHNIQUE: MRI of the brain was performed utilizing various T1 and T2-weighted sequences in the axial , sagittal, and coronal planes. Contrast-enhanced sequences were acquired following the administratio n of 5 cc of Gadavist. FINDINGS: Brain parenchyma: There is age-related involutional change noting minimal microangiopathic disease. T here is no hemorrhage or mass effect. There is no restricted diffusion to suggest acute ischemia. No enhancing mass lesion is identified on the postcontrast images. Webster-white matter differentiation is preserved. No extra-axial fluid collection is seen. The cerebellar tonsils are normal in configuratio n. Ventricles, sulci, and cisterns: Prominent secondary to involutional change. Pituitary and sella: Unremarkable. Intracranial vasculature: Normal flow voids are maintained at the skull base. Orbits: The bony orbits are grossly intact. Orbital contents are normal in appearance noting bilatera l ocular lens implants. Sinuses and mastoids: Moderate mucosal thickening is noted in the ethmoid sinuses. Mild mucosal thick ening is seen within the right frontal sinus, sphenoid sinuses, and the maxillary antra. The mastoid air cells are clear. Calvarium: Unremarkable. Cervical cord: Partially visualized cervical spinal cord is normal in morphology and signal intensity . IMPRESSION: No acute intracranial abnormality. ACT 112: Negative or not required by law. Electronically signed by: Ronnie Vega M.D. 12/31/2023 6:10 PM
[2023-12-31] MEDS ORDERED: hydrALAZINE 10 MG TAB PO PRN (19:41)
[2023-12-31] MEDS: EZETIMIBE 10 MG TAB PO SCH (21:52)
[2023-12-31] MEDS: LORazepam 0.5 MG TAB PO PRN (22:02)
[2024-01-01 07:20] LABS: Hematocrit (blood only) 31.9 % (37.0-47.0); Hemoglobin 10.7 g/dl (12.0-16.0); Mean Corpuscular Hemoglobin 30.3 pg (25.0-34.0); Mean Corpuscular Hgb Conc 33.5 g/dL (32.0-36.0); Mean Corpuscular Volume 90.4 fL (80.0-100.0); Platelet Count 277 K/uL (130-400); RDW Standard Deviation 39.8 fL (36.4-46.3); Red Blood Count 3.53 M/uL (4.20-5.40)
[2024-01-01 07:50] LABS: Creatinine Clr Calc Pharmacy 35.4 ml/min; Est GFR (African American) 72.9 ml/min; Est GFR (Non-African American) 62.9 ml/min; Magnesium 1.7 mg/dl (1.7-2.4); Potassium 3.9 mmol/L (3.5-5.1)
--- NOTE | 2024-01-01 12:35 | Hospitalist Progress Note ---
Date of Service January 01, 2024 Assessment & Plan (1) Encephalopathy: Plan: Transient Unresponsiveness Unclear etiology DD: Syncope/Seizure/R/O CVA/hypertensive encephalopathy/neuro psychotropic meds --CT Head:No acute intracranial hemorrhage, midline shift, or mass effect. --MRI brain: No acute intracranial abnormality. Mental status back to baseline No obvious source of infection Mental status back to baseline EEG pending Continue losartan, metoprolol Advised to avoid alcohol use Increase losartan to 50 mg twice daily Monitor BP closely Appreciate neurology input Counseled to quit alcohol use Advised to follow-up with psychiatrist for adjustment of home psychotropic medications. Patient already scheduled for follow-up. Patient prefers to continue Cymbalta for now as she feels depressed. Patient prefers to be discharged home today Needs follow-up with neurology on discharge Mild hyponatremia Acute on chronic hyponatremia H/O SIADH Continue fluid restriction Monitor sodium levels Sodium 135 today Alcohol intake Denies any excess use Advised to quit drinking Hypertrophic Cardiomyopathy Venous Doppler showed no DVT Continue home medications Monitor volume status Follows with [facility] [address] cardiology as outpatient Hyperlipidemia on statin Pulmonary hypertension PVD Anxiety/mood disorder, at baseline Continue home medications Prediabetes Last HbA1c 5.8 DVT Px: Lovenox SQ Code Status Full Code Disposition home Admission and Anticipated Discharge Date Admission Date: December 31, 2023 Subjective Patient is seen and examined at bedside States feeling well today No new complaints Headache resolved Blood pressure still slightly elevated Denies any focal weakness, numbness, chest pain, dyspnea, nausea, vomiting, abdominal pain Patient prefers to be discharged home today Review of Systems Review of Systems: All systems reviewed & are unremarkable except as noted in Subjective Physical Exam Physical Exam: Physical Exam: Vitals signs as noted above General Appearance: Thin, frail, elderly, no apparent distress Head: normocephalic, Atraumatic Eyes: normal inspection, EOMI Neck: supple, Trachea midline Respiratory/Chest: Normal breath sounds, CTA, No accessory muscle use Cardiovascular: S1, S2, + murmur, +Bradycardia Abdomen/GI:Soft, Non tender, Bowel sounds present Extremities/Musculoskeletal:normal inspection, 1+ pedal edema Neurologic/Psych:AAOX3, grossly no focal neurological deficits Skin: normal color, warm Results & Data Results & Data Vital Signs (Past 12 Hours) Vital Signs Temp Pulse Pulse Pulse Resp BP BP 01/01/24 11:46 36.5 C 63 18 171/82 H 01/01/24 07:48 36.6 C 94 H 18 158/67 H 01/01/24 07:10 57 L 01/01/24 03:16 37.0 C 60 18 161/68 H Pulse Ox O2 Del Method 01/01/24 11:46 95 Room Air 01/01/24 07:48 95 Room Air 01/01/24 07:10 01/01/24 03:16 94 Room Air Laboratory Results Short CBC 01/01/24 Range/Units 06:16 WBC 5.70 (4.8-10.8) K/ul Hgb 10.7 L (12.0-16.0) g/dl Hct 31.9 L (37.0-47.0) % Plt Count 277 (130-400) K/uL BMP 01/01/24 06:16 Sodium 135 L Potassium 3.9 Chloride 104 Carbon Dioxide 28 BUN 17 Creatinine 0.85 Glucose 93 Calcium 8.0 L
--- NOTE | 2024-01-01 12:47 | Discharge Summary ---
Date of Service January 01, 2024 Admission HPI Per Admitting Provider History obtained from patient and records. Medical history significant for hypertrophic cardiomyopathy, hypertension, hyperlipidemia, pulmonary hypertension as per records, PVD, chronic hyponatremia/SIADH, GERD, anxiety/mood disorder, prediabetes, chronic back pain. Last confinement June 2020 for hyponatremia secondary to SIADH. Nephrology recommended 1.5 L daily fluid restriction. Patient was hanging out with some friends at her apartment when she was noted to have transient unresponsiveness/blank stare for a few moments. Patient had consumed a little alcohol. No witnessed tongue biting or incontinence symptoms. Usual headache symptoms. Has not happened before. Patient has not been eating well since COVID 19 illness from years ago. Denies chest pain, SOB, abdominal pain. Mood is okay as per patient. SBP 170s upon arrival at the ER. 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 Admission Exam Per Admitting Provider GENERAL: Comfortable, slightly anxious, no respiratory distress SKIN: Normal color, warm HEENT: Ebony palpebral conjunctivae, no ptosis, dry buccal mucosa NECK : Supple, no tenderness CHEST : CTA, no tenderness HEART : Bradycardic, no obvious murmurs ABDOMEN: no distention, nontender EXTREMITIES : No LE swelling/tenderness, no other conspicuous deformities noted NEUROLOGIC : Coherent, no facial asymmetry, slightly hard of hearing, no other gross focality Principal Diagnosis Transient Unresponsiveness Depression Sinus bradycardia Discharge Data Allergies Allergy/AdvReac Type Severity Reaction Status Date / Time aspirin Allergy Severe Hives Verified 10/13/23 14:51 NSAIDS (Non-Steroidal Allergy Severe Anaphylaxis Verified 10/13/23 14:51 Anti-Inflamma NOEL Inhibitors Allergy Unknown HIVES, Verified 10/13/23 14:51 SWELLING OF FACE ibuprofen Allergy Unknown Hives Verified 10/13/23 14:51 pantoprazole Allergy Unknown Unknown Verified 10/13/23 14:51 Swrgwzw-EJZ-UaH Reductase Allergy Unknown "arms and Verified 10/13/23 14:51 Inhibitor legs achy" [Lxwkaoi-Xes-Fur Reductase Inhibitor] pravastatin [From Pravachol] AdvReac Severe liver Verified 10/13/23 14:51 complications gabapentin AdvReac Unknown Edema Verified 10/13/23 14:51 valacyclovir [From Valtrex] AdvReac Unknown Kidneys Verified 10/13/23 14:51 shut down Consultations 12/31/23 00:26 ED Decision to Admit Stat 12/31/23 09:01 Consult Neurology Routine Procedures Performed Laboratory Results WBC 5.70 K/ul (4.8-10.8) 01/01/24 06:16 RBC 3.53 M/uL (4.20-5.40) L 01/01/24 06:16 Hgb 10.7 g/dl (12.0-16.0) L 01/01/24 06:16 Hct 31.9 % (37.0-47.0) L 01/01/24 06:16 MCV 90.4 fL (80.0-100.0) 01/01/24 06:16 MCH 30.3 pg (25.0-34.0) 01/01/24 06:16 MCHC 33.5 g/dL (32.0-36.0) 01/01/24 06:16 RDW Std Deviation 39.8 fL (36.4-46.3) 01/01/24 06:16 RDW Coeff of Cindy 12.0 % (11.5-14.5) 01/01/24 06:16 Plt Count 277 K/uL (130-400) 01/01/24 06:16 MPV 9.0 fL (9.4-12.4) L 01/01/24 06:16 Immature Gran % (Auto) 0.2 % 12/31/23 05:43 Neut % (Auto) 47.7 % 12/31/23 05:43 Lymph % (Auto) 34.6 % 12/31/23 05:43 [place] % (Auto) 12.0 % 12/31/23 05:43 Eos % (Auto) 4.4 % 12/31/23 05:43 Baso % (Auto) 1.1 % 12/31/23 05:43 Neut # (Auto) 2.72 K/uL (1.40-6.50) 12/31/23 05:43 Lymph # (Auto) 1.97 K/uL (1.20-3.40) 12/31/23 05:43 [place] # (Auto) 0.68 K/uL (0.11-0.59) H 12/31/23 05:43 Eos # (Auto) 0.25 K/uL (0.00-0.50) 12/31/23 05:43 Baso # (Auto) 0.06 K/uL (0.00-0.20) 12/31/23 05:43 Immature Gran # (Auto) 0.01 K/uL (0.01-0.20) 12/31/23 05:43 Absolute Nucleated RBC Cancelled 12/30/23 21:42 Nucleated RBC % (auto) Cancelled 12/30/23 21:42 Neutrophils % (Manual) Cancelled 12/30/23 21:42 Band Neutrophils % Cancelled 12/30/23 21:42 Lymphocytes % (Manual) Cancelled 12/30/23 21:42 Prolymphocyte % Cancelled 12/30/23 21:42 Reactive Lymphs % (Man) Cancelled 12/30/23 21:42 Monocytes % (Manual) Cancelled 12/30/23 21:42 Eosinophils % (Manual) Cancelled 12/30/23 21:42 Basophils % (Manual) Cancelled 12/30/23 21:42 Metamyelocytes % (Man) Cancelled 12/30/23 21:42 Myelocytes % (Man) Cancelled 12/30/23 21:42 Promyelocytes % (Man) Cancelled 12/30/23 21:42 Blast Cells % (Manual) Cancelled 12/30/23 21:42 Plasma Cell % (Manual) Cancelled 12/30/23 21:42 Other Cells % Cancelled 12/30/23 21:42 Nucleated RBC % Cancelled 12/30/23 21:42 Neutrophils # (Manual) Cancelled 12/30/23 21:42 Band Neutrophils # Cancelled 12/30/23 21:42 Total Absolute Neuts Cancelled 12/30/23 21:42 Lymphocytes # (Manual) Cancelled 12/30/23 21:42 Prolymphocyte # Cancelled 12/30/23 21:42 Reactive Lymphs # Cancelled 12/30/23 21:42 Total Abs Lymphocytes Cancelled 12/30/23 21:42 Monocytes # (Manual) Cancelled 12/30/23 21:42 Eosinophils # (Manual) Cancelled 12/30/23 21:42 Basophils # (Manual) Cancelled 12/30/23 21:42 Metamyelocytes # (Man) Cancelled 12/30/23 21:42 Myelocytes # (Manual) Cancelled 12/30/23 21:42 Promyelocytes # (Man) Cancelled 12/30/23 21:42 Blast Cells # (Man) Cancelled 12/30/23 21:42 Plasma Cell # (Manual) Cancelled 12/30/23 21:42 Other Cells # Cancelled 12/30/23 21:42 Nucleated RBCs # (Man) Cancelled 12/30/23 21:42 Hypersegmented Neuts Cancelled 12/30/23 21:42 Hyposegmented Neuts Cancelled 12/30/23 21:42 Hypogranular Neuts Cancelled 12/30/23 21:42 Large Granular Lymphs Cancelled 12/30/23 21:42 # Lrg Granular Lymphs Cancelled 12/30/23 21:42 Hairy Cells Cancelled 12/30/23 21:42 Smudge Cells Cancelled 12/30/23 21:42 Toxic Granulation Cancelled 12/30/23 21:42 Toxic Vacuolation Cancelled 12/30/23 21:42 Dohle Bodies Cancelled 12/30/23 21:42 Pinky Rods Cancelled 12/30/23 21:42 Platelet Estimate Cancelled 12/30/23 21:42 Hypogranular Platelets Cancelled 12/30/23 21:42 Giant Platelets Cancelled 12/30/23 21:42 Platelet Satelliting Cancelled 12/30/23 21:42 RBC Morphology Cancelled 12/30/23 21:42 Polychromasia Cancelled 12/30/23 21:42 Hypochromasia Cancelled 12/30/23 21:42 Poikilocytosis Cancelled 12/30/23 21:42 Basophilic Stippling Cancelled 12/30/23 21:42 Anisocytosis Cancelled 12/30/23 21:42 Microcytosis Cancelled 12/30/23 21:42 Macrocytosis Cancelled 12/30/23 21:42 Spherocytes Cancelled 12/30/23 21:42 Pappenheimer Bodies Cancelled 12/30/23 21:42 Sickle Cells Cancelled 12/30/23 21:42 Target Cells Cancelled 12/30/23 21:42 Tear Drop Cells Cancelled 12/30/23 21:42 Ovalocytes Cancelled 12/30/23 21:42 Stomatocytes Cancelled 12/30/23 21:42 [place] Bodies Cancelled 12/30/23 21:42 Echinocytes Cancelled 12/30/23 21:42 Acanthocytes (Spur) Cancelled 12/30/23 21:42 Rouleaux Cancelled 12/30/23 21:42 RBC Agglutinates Cancelled 12/30/23 21:42 Schistocytes Cancelled 12/30/23 21:42 Sezary Cell Cancelled 12/30/23 21:42 PT 10.9 Seconds (9.0-12.0) 12/30/23 21:42 INR 1.0 (0.9-1.1) 12/30/23 21:42 APTT 26 Seconds (21-31) 12/30/23 21:42 PTT Ratio 1.0 12/30/23 21:42 Sodium 135 mmol/L (136-145) L 01/01/24 06:16 Potassium 3.9 mmol/L (3.5-5.1) 01/01/24 06:16 Chloride 104 mmol/L (98-107) 01/01/24 06:16 Carbon Dioxide 28 mmol/L (21-32) 01/01/24 06:16 Anion Gap 3 (3-11) 01/01/24 06:16 BUN 17 mg/dl (6-23) 01/01/24 06:16 Creatinine 0.85 mg/dl (0.6-1.2) 01/01/24 06:16 Est Cr Clr Drug Dosing 35.4 ml/min 01/01/24 06:16 Est GFR ( Amer) 72.9 ml/min 01/01/24 06:16 Est GFR (Non-Af Amer) 62.9 ml/min 01/01/24 06:16 BUN/Creatinine Ratio 20.0 (10-20) 01/01/24 06:16 Glucose 93 mg/dl (70-99(Fasting)) 01/01/24 06:16 Calcium 8.0 mg/dl (8.6-10.3) L 01/01/24 06:16 Magnesium 1.7 mg/dl (1.7-2.4) 01/01/24 06:16 Total Bilirubin 0.5 mg/dl (0.2-1.0) 12/30/23 21:42 AST 28 U/L (13-39) 12/30/23 21:42 ALT 12 U/L (7-52) 12/30/23 21:42 Alkaline Phosphatase 56 U/L (34-104) 12/30/23 21:42 Troponin I High Sens 8.1 pg/ml (0-14) 12/30/23 21:42 Total Protein 7.0 gm/dl (6.0-8.3) 12/30/23 21:42 Albumin 4.2 gm/dl (3.4-5.0) 12/30/23 21:42 Globulin 2.8 gm/dl (2.5-4.0) 12/30/23 21:42 Albumin/Globulin Ratio 1.5 (0.9-2) 12/30/23 21:42 TSH 5.948 uIu/ml (0.300-4.500) H 12/30/23 21:42 Free T4 0.91 ng/dl (0.61-1.60) 12/30/23 21:42 Urine Color Yellow 12/30/23 23:55 Urine Appearance Clear (Clear) 12/30/23 23:55 Urine pH 6.0 (4.5-7.5) 12/30/23 23:55 Ur Specific [place] 1.004 (1.000-1.030) 12/30/23 23:55 Urine Protein Negative (Negative) 12/30/23 23:55 Urine Glucose (UA) Negative (Negative) 12/30/23 23:55 Urine Ketones Negative (Negative) 12/30/23 23:55 Urine Blood Negative (Negative) 12/30/23 23:55 Urine Nitrite Negative (Negative) 12/30/23 23:55 Urine Bilirubin Negative (Negative) 12/30/23 23:55 Urine Urobilinogen Negative (Negative) 12/30/23 23:55 Ur Leukocyte Esterase Trace (Negative) H 12/30/23 23:55 Urine WBC (Auto) 0-5 /hpf (0-5) 12/30/23 23:55 Urine RBC (Auto) 0-2 /hpf (0-2) 12/30/23 23:55 U Hyaline Cast (Auto) 0-2 /lpf (0-2) 12/30/23 23:55 U Epithel Cells (Auto) 0-2 /hpf (0-2) 12/30/23 23:55 Urine Bacteria (Auto) None Seen (None Seen) 12/30/23 23:55 Ethyl Alcohol mg/dL < 10.0 mg/dl (<10.0) 12/30/23 23:12 Blood Parasites ID Cancelled 12/30/23 21:42 Impressions Chest X-Ray 12/30/23 22:11 XR chest 1V not portable HISTORY: Weakness COMPARISON: Chest 06/19/2020. FINDINGS: No pneumothorax. The heart remains mildly enlarged. There are trace bilateral pleural effusions. No new focal lung consolidations to suggest a pneumonia. Mild interstitial thickening at the lung bases may represent dev eloping congestive change. No acute fractures. IMPRESSION: 1. Cardiomegaly with trace bilateral pleural effusions. 2. Mild interstitial thickening at the lung bases could represent early congestive change. ACT 112: Negative or not required by law. Electronically signed by: Kennedy Adams M.D. 12/31/2023 8:[address] 12/30/23 23:03 Exam(s): CT HEAD Without Contrast EXAM: CT Head Without Intravenous Contrast CLINICAL HISTORY: Reason for exam: AMS. TECHNIQUE: Axial computed tomography images of the head/brain without intravenous contrast. Automated exposure control was utilized for the study. A dose lowering technique was utilized adhering to the principles of ALARA. COMPARISON: No relevant prior studies available. FINDINGS: No acute intracranial hemorrhage. No midline shift or mass effect. The territorial webster-white matter differentiation is maintained throughout. Age-related cerebral volume loss. Periventricular and subcortical white matter hypoattenuation, consistent with chronic microangiopathy. The visualized orbits appear grossly unremarkable. The calvarium is intact. The visualized paranasal sinuses and mastoid air cells are grossly clear. IMPRESSION: No acute intracranial hemorrhage, midline shift, or mass effect. Electronically signed by: Orlin Knight MD 12/31/23 01:32 AM Venous Doppler Study 12/31/23 00:00 Exam(s): US VENOUS LEFT LOWER EXTREMITY EXAM: US Duplex Left Lower Extremity Veins CLINICAL HISTORY: Swelling. TECHNIQUE: Real-time duplex ultrasound scan of the left lower extremity veins integrating B-mode two-dimensional vascular structure, Doppler spectral analysis, color flow Doppler imaging and compression. COMPARISON: No relevant prior studies available. FINDINGS: Deep veins: Unremarkable. No Deep vein thrombosis in the visualized common femoral, femoral, proximal deep femoral or popliteal veins. The veins demonstrate normal color flow, are normally compressible, with normal phasic flow and/or augmentation response. Superficial veins: Unremarkable. No thrombus in the visualized great saphenous vein. Soft tissues: No acute findings. No popliteal cyst. IMPRESSION: No deep vein thrombosis of the left lower extremity. Electronically signed by: Shira Kapoor MD 12/31/23 05:50 AM Brain MRI 12/31/23 12:08 MRI OF THE BRAIN COMBO CLINICAL HISTORY: Strokelike symptoms. COMPARISON STUDY: CT of the brain dated 12/30/2023. TECHNIQUE: MRI of the brain was performed utilizing various T1 and T2-weighted sequences in the axial, sagittal, and coronal planes. Contrast-enhanced sequences were acquired following the administration of 5 cc of Gadavist. FINDINGS: Brain parenchyma: There is age-related involutional change noting minimal microangiopathic disease. There is no hemorrhage or mass effect. There is no restricted diffusion to suggest acute ischemia. No enhancing mass lesion is identified on the postcontrast images. Webster-white matter differentiation is preserved. No extra-axial fluid collection is seen. The cerebellar tonsils are normal in configuration. Ventricles, sulci, and cisterns: Prominent secondary to involutional change. Pituitary and sella: Unremarkable. Intracranial vasculature: Normal flow voids are maintained at the skull base. Orbits: The bony orbits are grossly intact. Orbital contents are normal in appearance noting bilateral ocular lens implants. Sinuses and mastoids: Moderate mucosal thickening is noted in the ethmoid sinuses. Mild mucosal thickening is seen within the right frontal sinus, sphenoid sinuses, and the maxillary antra. The mastoid air cells are clear. Calvarium: Unremarkable. Cervical cord: Partially visualized cervical spinal cord is normal in morphology and signal intensity. IMPRESSION: No acute intracranial abnormality. ACT 112: Negative or not required by law. Electronically signed by: Ronnie Vega M.D. 12/31/2023 6:10 PM Ordered Studies 12/30/23 23:03 CT head/brain wo con Stat 12/31/23 US venous doppler LE LT Stat 12/31/23 12:08 MRI Brain [MR brain wo/w con] Urgent Hospital Course (1) Encephalopathy: Transient Unresponsiveness Unclear etiology DD: Syncope/Seizure/hypertensive encephalopathy/neuro psychotropic meds CVA ruled out --CT Head:No acute intracranial hemorrhage, midline shift, or mass effect. --MRI brain: No acute intracranial abnormality. Mental status back to baseline No obvious source of infection Mental status back to baseline EEG pending Continue losartan, metoprolol Advised to avoid alcohol use Increase losartan to 50 mg twice daily Monitor BP closely Appreciate neurology input Counseled to quit alcohol use Advised to follow-up with psychiatrist for adjustment of home psychotropic medications. Patient already scheduled for follow-up. Patient prefers to continue Cymbalta for now as she feels depressed. Patient prefers to be discharged home today Needs follow-up with neurology on discharge Sinus bradycardia Metoprolol dose decreased to 25 mg twice daily Monitor Mild hyponatremia Acute on chronic hyponatremia H/O SIADH Continue fluid restriction Monitor sodium levels Sodium 135 today Alcohol intake Denies any excess use Advised to quit drinking Hypertrophic Cardiomyopathy Venous Doppler showed no DVT Continue home medications Monitor volume status Follows with [facility] cardiology as outpatient Hyperlipidemia on statin Pulmonary hypertension PVD Anxiety/mood disorder, at baseline Continue home medications Prediabetes Last HbA1c 5.8 DVT Px: Lovenox SQ Code Status Full Code Disposition home Total Time Total Time Spent Total Time Spent (In Minutes): 52 minutes Discharge Plan Discharge Items Patient Disposition: Home - Self-Care Reason For Visit: TRANSIENT UNRESPONSIVENESS Discharge Diagnosis: Transient Unresponsiveness Depression Sinus bradycardia Activity: Per Instructions section Exercise/Sports: Gradually increase as tolerated Non-emergency contact: Primary Care Provider and Neurologist Call non-emergency contact if: you have any medication questions, your symptoms worsen, your pain is concerning for you and you have a fever Follow-up/Referrals: Edilia Kenyon MD [Primary Care Provider] - Diet: Heart Healthy Fluids: 2000ml (8 cups) Addtl Attending Provider Instructions: Follow-up with your primary care physician Dr. Edilia Kenyon in 1 week Follow-up with your psychiatrist as advised for adjustment of your medications as needed Follow-up with your neurologist in 3 to 4 weeks --- Your EEG is pending at the time of discharge. Follow-up with your physician for results. --Avoid alcohol use as advised. Medication changes Your metoprolol dose is decreased to 25 mg twice a day as you were noted to have low heart rate Your losartan dose is increased to 50 mg twice a day as your blood pressure is elevated while you are hospitalized --Monitor your blood pressure regularly at home. Discuss with your physician for further adjustment of medications as needed. Seek immediate medical attention if your symptoms reoccur or worsen Please take all medications as instructed on discharge list below. Please call if you have any questions or problems. You can reach a [facility] hospitalist on duty at [facility] 24 hours a day by calling [phone] Pending Studies at Discharge: Yes Studies:: EEG Stand-Alone Forms: My [facility], Smoking Cessation Medications and DC Order Prescriptions: New losartan 50 mg Tablet 50 mg PO BID Qty: 60 0RF metoprolol tartrate 25 mg tablet 25 mg PO BID Qty: 60 0RF Continued buspirone 15 mg tablet 15 mg PO BID escitalopram oxalate 20 mg tablet 20 mg PO DAILY escitalopram oxalate 10 mg tablet 10 mg PO DAILY fluticasone furoate 50 mcg/actuation blister with device 1 inh inhalation BID cholecalciferol (vitamin D3) 100 mcg (4,000 unit) tablet 100 mcg PO DAILY ondansetron 4 mg tablet,disintegrating 8 mg PO TID PRN (Reason: nausea) Xiidra 5 % Dropperette 1 drp OPB BID fenofibrate micronized 67 mg Capsule 67 mg PO HS omeprazole 40 mg capsule,delayed release(DR/EC) 40 mg PO QAM lorazepam 0.5 mg tablet 0.5 mg sublingual HS PRN (Reason: Insomnia) oxycodone 5 mg tablet 5 mg PO Q8H PRN (Reason: Pain) ezetimibe [Zetia] 10 mg Tablet 10 mg PO HS hydroxyzine HCl 25 mg tablet 25 mg PO DIRECTED PRN (Reason: per patient) duloxetine 30 mg capsule,delayed release(DR/EC) 30 mg PO DAILY Qty: 30 0RF Discontinued losartan 25 mg tablet 25 mg PO BID metoprolol tartrate 50 mg Tablet 50 mg PO BID Discharge Orders: Discharge Order (Routine); Ordered 01/01/24 Ordered By: German Regan Admission Data Admit Date/Time: 12/31/23 01:04 Attending Provider: eGrman Regan Admit Provider: Anjum Ley Primary Care Provider: Edilia Kenyon Other Providers: Anjum Ley; Kay Pruett; José Miguel Hinds; Kay Mcclain; Tacho Tejada; Brigido Etienne; Ayush Estes; Reza Aragon; Petrona Marquez; Joseph Cadena; Emir Banks; Mirtha Waters; Cresencio Kincaid; Kiesha Verma; Wendi Reich; Reza Sevilla
[2024-01-01] MEDS ORDERED: LOSARTAN POTASSIUM 50 MG TAB PO SCH (21:00)
--- NOTE | 2024-01-03 12:08 | Electroencephalogram ---
EEG Procedure Note Date of Service December 31, 2023 Start / End Times Start Time: 06:19 End Time: 06:39 Referring Physician Anjum Ley MD, History A 83 year old female with staring spells. EEG performed for evaluation of epileptiform activity . Home Medication List Medication Instructions Recorded Confirmed Type ezetimibe 10 mg tablet (Zetia) 10 mg PO HS 06/14/20 12/31/23 History fenofibrate micronized 67 mg 67 mg PO HS 06/14/20 12/31/23 History capsule lorazepam 0.5 mg tablet 0.5 mg sublingual HS PRN Insomnia 06/14/20 12/31/23 History omeprazole 40 mg capsule,delayed 40 mg PO QAM 06/14/20 12/31/23 History release oxycodone 5 mg tablet 5 mg PO Q8H PRN Pain 06/14/20 12/31/23 History lifitegrast 5 % eye drops in a 1 drp OPB BID 06/19/20 12/31/23 History dropperette (Xiidra) buspirone 15 mg tablet 15 mg PO BID 07/16/23 12/31/23 History cholecalciferol (vitamin D3) 100 100 mcg PO DAILY 07/16/23 12/31/23 History mcg (4,000 unit) tablet escitalopram oxalate 10 mg tablet 10 mg PO DAILY 07/16/23 12/31/23 History escitalopram oxalate 20 mg tablet 20 mg PO DAILY 07/16/23 12/31/23 History fluticasone furoate 50 1 inh inhalation BID 07/16/23 12/31/23 History mcg/actuation blister powder for inhalation ondansetron 4 mg disintegrating 8 mg PO TID PRN nausea 07/16/23 12/31/23 History tablet hydroxyzine HCl 25 mg tablet 25 mg PO DIRECTED PRN per 12/31/23 12/31/23 History patient duloxetine 30 mg capsule,delayed 30 mg PO DAILY #30 caps 01/01/24 Rx release losartan 50 mg tablet 50 mg PO BID #60 tabs 01/01/24 Rx metoprolol tartrate 25 mg tablet 25 mg PO BID #60 tabs 01/01/24 Rx Inpatient Medication List Discontinued Medications Buspirone HCl (Buspirone 15 Mg Tab) 15 mg PO BID TESHA Stop: 01/30/24 08:59 Last Admin: 01/01/24 07:52 Dose: 15 mg Documented By: Admin: 12/31/23 21:52 Dose: 15 mg Documented By: Admin: 12/31/23 08:01 Dose: 15 mg Documented By: GONZALES Duloxetine HCl (Duloxetine Hcl 30 Mg Cap) 30 mg PO DAILY TESHA Stop: 01/30/24 08:59 Last Admin: 12/31/23 08:02 Dose: 30 mg Documented By: GONZALES Ezetimibe (Ezetimibe 10 Mg Tab) 10 mg PO HS TESHA Stop: 01/30/24 20:59 Last Admin: 12/31/23 21:52 Dose: 10 mg Documented By: MAURY Enoxaparin Sodium (Enoxaparin Inj 30 Mg/0.3 Ml Syr) 30 mg SQ QAM TESHA Stop: 01/30/24 08:59 Last Admin: 01/01/24 07:54 Dose: 30 mg Documented By: Admin: 12/31/23 08:01 Dose: 30 mg Documented By: GONZALES Escitalopram Oxalate (Escitalopram Oxalate 10 Mg Tab) 10 mg PO DAILY TESHA Stop: 01/30/24 08:59 Last Admin: 01/01/24 07:52 Dose: 10 mg Documented By: Admin: 12/31/23 08:03 Dose: 10 mg Documented By: GONZALES Escitalopram Oxalate (Escitalopram Oxalate 20 Mg Tab) 20 mg PO DAILY TESHA Stop: 01/30/24 08:59 Last Admin: 01/01/24 07:53 Dose: 20 mg Documented By: Admin: 12/31/23 08:03 Dose: 20 mg Documented By: GONZALES Gadobutrol (Gadobutrol 30ml Vial) 5 ml IV ONCE ONE Stop: 12/31/23 17:50 Last Admin: 12/31/23 17:54 Dose: 5 ml Documented By: ANTONIO Hydralazine HCl (Hydralazine Hcl 20 Mg/Ml Vial) 5 mg IV NOW ONE Stop: 12/31/23 01:05 Last Admin: 12/31/23 01:17 Dose: 5 mg Documented By: VENU Sodium Chloride (Nss) 1,000 mls @ 125 mls/hr IV .Q8H TESHA Stop: 01/30/24 00:14 Last Infusion: 12/31/23 03:15 Dose: Infused Documented By: Infusion: 12/31/23 00:43 Dose: 0 mls/hr Documented By: Admin: 12/31/23 00:19 Dose: 125 mls/hr Documented By: VENU Magnesium Sulfate/Dextrose (Magnesium Sulfate / D5w) 1 gm in 100 mls @ 50 mls/hr IV ONE ONE Stop: 12/31/23 02:29 Last Infusion: 12/31/23 03:15 Dose: Infused Documented By: Admin: 12/31/23 00:42 Dose: 50 mls/hr Documented By: VENU Sodium Chloride (Nss) 1,000 mls @ 60 mls/hr IV .[id number] ONE Stop: 12/31/23 17:10 Last Infusion: 12/31/23 10:35 Dose: Infused Documented By: Admin: 12/31/23 00:43 Dose: 60 mls/hr Documented By: VENU Lorazepam (Lorazepam 0.5 Mg Tab) 0.25 mg PO NOW STA Stop: 12/31/23 01:02 Last Admin: 12/31/23 01:17 Dose: 0.25 mg Documented By: VENU Lorazepam (Lorazepam 0.5 Mg Tab) 0.5 mg PO HS PRN PRN Reason: Insomnia Stop: 01/30/24 01:10 Last Admin: 12/31/23 22:02 Dose: 0.5 mg Documented By: MAURY Losartan Potassium (Losartan Potassium 25 Mg Tab) 25 mg PO BID TESHA Stop: 01/30/24 08:59 Last Admin: 01/01/24 07:53 Dose: 25 mg Documented By: Admin: 12/31/23 21:52 Dose: 25 mg Documented By: Admin: 12/31/23 08:01 Dose: 25 mg Documented By: GONZALES Magnesium Chloride (Magnesium Chloride W/Calcium 64mg Delayed Rel Tab) 64 mg PO BID TESHA Stop: 01/30/24 08:59 Last Admin: 01/01/24 07:54 Dose: 64 mg Documented By: Admin: 12/31/23 21:53 Dose: 64 mg Documented By: Admin: 12/31/23 10:47 Dose: 64 mg Documented By: GONZALES Metoprolol Tartrate (Metoprolol Tartrate 25 Mg Tab) 12.5 mg PO BID TESHA Stop: 01/30/24 08:59 Last Admin: 01/01/24 07:52 Dose: 12.5 mg Documented By: Admin: 12/31/23 21:50 Dose: 12.5 mg Documented By: Admin: 12/31/23 11:42 Dose: 12.5 mg Documented By: MOY Ballard (Order Awaiting Action: Fenofibrate Micronized 67 Mg Capsule) 1 each N/A QS TESHA Stop: 01/30/24 07:59 Last Admin: 01/01/24 07:54 Dose: Not Given Documented By: Admin: 12/31/23 23:38 Dose: Not Given Documented By: Admin: 12/31/23 19:14 Dose: Not Given Documented By: Admin: 12/31/23 09:06 Dose: Not Given Documented By: GONZALES Ballard (Order Awaiting Action: Omeprazole 40 Mg Capsule,Delayed Release(Dr/Ec)) 1 each N/A QS TESHA Stop: 01/30/24 07:59 Last Admin: 01/01/24 07:54 Dose: Not Given Documented By: Admin: 12/31/23 23:40 Dose: Not Given Documented By: Admin: 12/31/23 19:15 Dose: Not Given Documented By: Admin: 12/31/23 09:06 Dose: Not Given Documented By: GONZALES Oxycodone HCl (Oxycodone Hcl Ir 5 Mg Tab (Immediate Release)) 5 mg PO Q4H PRN PRN Reason: Pain Stop: 01/14/24 01:05 Last Admin: 01/01/24 08:02 Dose: 5 mg Documented By: Admin: 12/31/23 21:53 Dose: 5 mg Documented By: Admin: 12/31/23 08:06 Dose: 5 mg Documented By: GONZALES Description This is a 21 electrode EEG with a single channel dedicated to limited EKG. The electrodes were placed in accordance with the International 10-20 system. Report: At the onset of the EEG the patient is awake. The background looks symmetric. The background predominantly consists of 6-7 hertz theta activity with loss of the anterior to posterior gradient. No stage 2 sleep transients are seen. Photic stimulation does not induce any additional abnormalities. Interpretation This is an abnormal awake and drowsy routine EEG due to generalized background slowing suggestive of a nonspecific encephalopathy. There is no evidence of epileptiform activity.
== END 2024-01-01 14:24 | disposition home or self-care (01) ==
LOC: EDINP 21:06 → ED 21:06 → 2N 12-31 01:26

== ENCOUNTER 2024-09-14 14:47 | Inpatient (IN) ==
--- NOTE | 2024-09-14 15:16 | Emergency Department Note ---
ED Provider Note History of Present Illness Chief Complaint: Hip Pain Stated Complaint: FALL, LEFT HIP PAIN Time Seen by Provider: 09/14/24 14:57 84-year-old female who presents to the emergency department with family for evaluation of injuries after she fell outside of her home [address] The patient reports that she was not wearing good shoes or socks, and thinks that her feet slipped in her shoes, causing her to lose balance and falling onto her buttocks. The patient complains of left buttock and hip pain. She denies any definitive pain radiating into the back, but does report a history of chronic back issues. Patient is pretty certain that she has a history of osteoporosis, recently diagnosed with 4 rib fractures from another recent fall in her bedroom. Today's injury happened an hour prior to arrival. The patient did take some oxycodone that she just got refilled from her pharmacy, and currently rates her pain a 10 out of 10. Patient reports that she is on chronic oxycodone management for her back. Home Medications Medication Instructions Recorded Confirmed Type ezetimibe 10 mg tablet (Zetia) 10 mg PO HS 06/14/20 09/14/24 History fenofibrate micronized 67 mg 67 mg PO HS 06/14/20 09/14/24 History capsule lorazepam 0.5 mg tablet 0.5 mg sublingual HS PRN Insomnia 06/14/20 09/14/24 History omeprazole 40 mg capsule,delayed 40 mg PO QAM 06/14/20 09/14/24 History release oxycodone 5 mg tablet 5 mg PO TID PRN Pain 06/14/20 09/14/24 History lifitegrast 5 % eye drops in a 1 drp OPB BID 06/19/20 09/14/24 History dropperette (Xiidra) buspirone 15 mg tablet 15 mg PO UD 07/16/23 09/14/24 History cholecalciferol (vitamin D3) 100 100 mcg PO DAILY 07/16/23 09/14/24 History mcg (4,000 unit) tablet escitalopram oxalate 10 mg tablet 10 mg PO DAILY 07/16/23 09/14/24 History escitalopram oxalate 20 mg tablet 20 mg PO DAILY 07/16/23 09/14/24 History ondansetron 4 mg disintegrating 8 mg PO TID PRN nausea 07/16/23 09/14/24 History tablet hydroxyzine HCl 25 mg tablet 25 mg PO DIRECTED PRN per 12/31/23 09/14/24 History patient duloxetine 30 mg capsule,delayed 30 mg PO DAILY #30 caps 01/01/24 09/14/24 Rx release losartan 50 mg tablet 50 mg PO BID #60 tabs 01/01/24 09/14/24 Rx metoprolol tartrate 25 mg tablet 25 mg PO BID #60 tabs 01/01/24 09/14/24 Rx famotidine 20 mg tablet 20 mg PO DAILY 09/14/24 09/14/24 History furosemide 20 mg tablet 20 mg PO DAILY PRN Fluid Retention 09/14/24 09/14/24 History Allergies Allergy/AdvReac Type Severity Reaction Status Date / Time aspirin Allergy Severe Hives Verified 07/19/24 13:32 NSAIDS (Non-Steroidal Allergy Severe Anaphylaxis Verified 07/19/24 13:32 Anti-Inflamma NOEL Inhibitors Allergy Unknown HIVES, Verified 07/19/24 13:32 SWELLING OF FACE ibuprofen Allergy Unknown Hives Verified 07/19/24 13:32 pantoprazole Allergy Unknown Unknown Verified 07/19/24 13:32 Artoayv-OVS-ApF Reductase Allergy Unknown "arms and Verified 07/19/24 13:32 Inhibitor legs achy" [Oaukupx-Ger-Glf Reductase Inhibitor] pravastatin [From Pravachol] AdvReac Severe liver Verified 07/19/24 13:32 complications gabapentin AdvReac Unknown Edema Verified 07/19/24 13:32 valacyclovir [From Valtrex] AdvReac Unknown Kidneys Verified 07/19/24 13:32 shut down Past Med/Surg History Problem List (Updated 09/14/24 @ 18:16 by Lonnie Montanez) Acute hyponatremia (Acute) Status post fall (Acute) Unable to ambulate (Acute) Closed fracture of left pelvis (Acute) Pelvic fracture Episode of altered cognition AMS (altered mental status) (Acute) Thoracic spondylosis Bilateral occipital neuralgia Chronic daily headache Opioid dependence Thoracic back pain Myofascial pain Acute hyponatremia (Acute) Chronic pain disorder (Chronic) CKD (chronic kidney disease) stage 3, GFR 30-59 ml/min Hyponatremia (Acute) Hypertrophic cardiomyopathy (Chronic) Raynauds disease (Chronic) Hyperlipidemia (Chronic) HTN (hypertension) (Chronic) Encephalopathy (Acute) Altered mental status (Acute 05/30/13) Acute kidney injury (Acute 05/30/13) Hypomagnesemia (Acute) Hypokalemia (Acute) Hypophosphatemia (Acute) Malnutrition (Acute) Alcohol use (Chronic) Ulceration of oral mucosa (Acute) Medical History Vitamin D deficiency Mitral regurgitation Aortic stenosis Surgical History History of hysterectomy History of cholecystectomy Family History Other No pertinent family history Social History Smoking Status: Never smoker Second Hand Exposure: No; Do You Dip or Chew Tobacco: No; Hx Alcohol Use: Yes Alcohol type: wine Alcohol Intake Frequency Comment: was daily but pt reports cutting back over past few months Hx Substance Use: No Preferred Language: Thai Communication Ability: Effective Supervisor Fabrication And Assembly Required: No Beliefs That Will Affect Care: None marital status: Unknown Current Living Situation: Alone Current Living Situation Comment: High Rise Apartment Complex Feels Safe at Home: Yes Assistive Devices: Glasses Physical Exam Vital Signs Vital Signs - 24 hr 09/14/24 14:49 Temperature 36.5 C Temperature Source Temporal Artery Scan Pulse Rate 70 Respiratory Rate 20 Respiratory Effort / Characteristics Non-Labored Spontaneous Respiratory Depth Normal Blood Pressure 186/76 H Blood Pressure Mean 112 Pulse Oximetry 92 Oxygen Delivery Method Room Air Sepsis Recent Fever Within 48 Hours No Sepsis New/Unexplained Change in Mental Status N/A Sepsis Action Taken by Nursing No Action Required CONSTITUTIONAL: Healthy and well nourished. Alert and oriented X 3. GCS 15. HEENT: Normocephalic, atraumatic. NECK: No pain with active range of motion of the neck. RESPIRATORY: Clear to auscultation bilaterally with no wheezing, crackles, rhonchi or stridor. CARDIOVASCULAR: Regular rate and rhythm with no murmurs, rubs or gallops. GASTROINTESTINAL: Bowel sounds present in all quadrants. Abdomen is soft and nontender to palpation. MUSCULOSKELETAL: Examination shows minimal discomfort with left hip logroll. Pelvis does appear to be stable with rock. The patient has mild generalized lower central lumbar tenderness to palpation. Distal pulses are intact. INTEGUMENTARY: No rash or other significant dermatologic conditions noted. HEMATOLOGIC: No ecchymosis or petechiae. PSYCHIATRIC: Positive affect. NEUROLOGIC: Lower extremities are sensory intact. Course Course Patient history and physical exam were performed. Nursing notes were reviewed. Vital signs are reviewed, showing an elevated blood pressure. The patient refused any analgesics on initial exam. Noncontrast CT imaging of the lumbar spine, pelvis and left hip shows a nondisplaced left pelvic fracture as discussed in the MDM section and radiologist report. Findings were discussed with the patient. The patient indicates that she is unable to weight-bear because of the discomfort. At this point, I did discuss possibility of placement for rehabilitation, and both the patient and daughter were in agreement. The case was discussed with our Robotics Engineer, who indicated that she would require admission prior to transfer to rehab. I did reach out to Dr. Cota, orthopedic surgeon condenser tester, who indicated that this is a nonsurgical management, and indicated that the patient could be weightbearing as tolerated with a walker. I then reached out and discussed the case with [facility] hospitalist service, who recommended oral oxycodone for now, as well as baseline labs, and they would come down to evaluate the patient. The daughter and patient also requested something for eat, and a meal tray was ordered. Labs were reviewed, showing a hyponatremia. Review of records shows that the patient does have a prior history of hyponatremia and stage III chronic kidney disease. Please see hospitalist and orthopedic dictations for further treatment and final disposition. Administered Medications Discontinued Medications Morphine Sulfate (Morphine Sulfate 4 Mg/Ml 1 Ml Carp\\Vial) 4 mg IV NOW STA Stop: 09/14/24 17:26 Last Admin: 09/14/24 17:50 Dose: Not Given Documented By: Ondansetron HCl (Ondansetron Inj 2 Mg/Ml 2 Ml Vial) 4 mg IV NOW STA Stop: 09/14/24 17:26 Last Admin: 09/14/24 17:50 Dose: Not Given Documented By: MSShereen Ondansetron HCl (Ondansetron 4 Mg Od Tab) 4 mg PO NOW STA Stop: 09/14/24 17:48 Last Admin: 09/14/24 17:59 Dose: 4 mg Documented By: DUKE Oxycodone HCl (Oxycodone Hcl Ir 5 Mg Tab (Immediate Release)) 5 mg PO NOW STA Stop: 09/14/24 17:48 Last Admin: 09/14/24 17:59 Dose: 5 mg Documented By: DUKE Medical Decision Making Medical Records Attestation: I reviewed the patient's medical records. Home Medications was personally reviewed by me Laboratory Data Attestation: I reviewed the patient's lab results. 09/14/24 17:40 09/14/24 17:40 Lab Results 09/14/24 Range/Units 17:40 WBC 11.35 H (4.8-10.8) K/ul RBC 3.79 L (4.20-5.40) M/uL Hgb 11.3 L (12.0-16.0) g/dl Hct 33.5 L (37.0-47.0) % MCV 88.4 (80.0-100.0) fL MCH 29.8 (25.0-34.0) pg MCHC 33.7 (32.0-36.0) g/dL RDW Std Deviation 43.8 (36.4-46.3) fL RDW Coeff of Cindy 13.6 (11.5-14.5) % Plt Count 318 (130-400) K/uL MPV 8.5 L (9.4-12.4) fL Immature Gran % (Auto) 0.8 % Neut % (Auto) 83.4 % Lymph % (Auto) 9.3 % Will % (Auto) 5.3 % Eos % (Auto) 0.8 % Baso % (Auto) 0.4 % Neut # (Auto) 9.47 H (1.40-6.50) K/uL Lymph # (Auto) 1.06 L (1.20-3.40) K/uL Will # (Auto) 0.60 H (0.11-0.59) K/uL Eos # (Auto) 0.09 (0.00-0.50) K/uL Baso # (Auto) 0.04 (0.00-0.20) K/uL Immature Gran # (Auto) 0.09 (0.01-0.20) K/uL Sodium 128 L (136-145) mmol/L Potassium 4.3 (3.5-5.1) mmol/L Chloride 95 L (98-107) mmol/L Carbon Dioxide 28 (21-32) mmol/L Anion Gap 5 (3-11) BUN 11 (6-23) mg/dl Creatinine 0.92 (0.6-1.2) mg/dl Est Cr Clr Drug Dosing Not Reportable eGFR 61.02 BUN/Creatinine Ratio 12.0 (10-20) Glucose 101 H (70-99(Fasting)) mg/dl Calcium 9.1 (8.6-10.3) mg/dl Total Bilirubin 0.7 (0.2-1.0) mg/dl AST 26 (13-39) U/L ALT 17 (7-52) U/L Alkaline Phosphatase 58 (34-104) U/L Total Protein 6.9 (6.0-8.3) gm/dl Albumin 4.0 (3.4-5.0) gm/dl Globulin 2.9 (2.5-4.0) gm/dl Albumin/Globulin Ratio 1.4 (0.9-2) Imaging Data Attestation: I personally reviewed and interpreted this imaging study as follows: My Impression: My interpretation of a noncontrast CT scan of the lumbar spine, pelvis and left hip shows a left pelvic fracture as discussed in the following Radiologist's Impression section. No lumbar or hip fractures are appreciated. Radiologist reports were otherwise reviewed with concurrence. Radiologist's Impression: Hip CT 09/14/24 15:10 EXAMINATION: CT of the pelvis performed and left hip without the administration of IV contrast TECHNIQUE: Helical CT images from the iliac crests through the symphysis pubis were obtained without contrast. Coronal and sagittal reformatted images were generated at a workstation for further assessment. Dose reduction techniques were achieved by using automatic exposure control and/or adjustment of mA and/or kV according to patient size and/or use of iterative reconstruction technique. COMPARISON: None HISTORY: Trauma FINDINGS: Bladder / Pelvic organs: Unremarkable. Bowel: No bowel obstruction. No abnormal bowel wall thickening. The appendix is unremarkable. Lymph nodes: No retroperitoneal, mesenteric, or pelvic lymphadenopathy. Peritoneum / Retroperitoneum: No free fluid or air within the abdomen. Vessels: No infrarenal aortic aneurysm. Bones and soft tissues: There is a fracture through the distal left superior pubic ramus extending into the pubic bone. Fracture of the lateral left sacral ala extending into the SI joint inferiorly. Mild blood products seen within the prevesical space on the left adjacent to the superior pubic ramus. The femora are intact. No femoral neck fractures. The acetabulum appear intact. IMPRESSION: Fractures through the left anterior aspect of the superior pubic ramus extending into the pubic bone, as well as the left sacral ala extending into the SI joint. Electronically signed by Serg Roy 09-14-2024 4:[address] 09/14/24 15:10 CT lumbar spine without contrast History: Back pain Comparison: None Technique: Using multidetector thin collimation helical acquisition technique, axial, coronal and sagittal CT images through the lumbar spine were obtained without intravenous contrast. Dose reduction techniques were achieved by using automatic exposure control and/or adjustment of mA and/or kV according to patient size and/or use of iterative reconstruction technique. Findings: There are 5 lumbar type vertebrae. Posterior thad and screw fixation changes at L4, L5, and S1. L4-5 and L5-S1 disc spacer devices are present. There is trace anterolisthesis of L4 on L5 as well as L5 on S1. L4, L5, and S1 laminectomy changes are seen. Vertebral body heights are maintained. No visualized fracture. Small multilevel marginal osteophytes of the vertebral bodies. Mild disc height loss at L3-4. The visualized adjacent paraspinous tissues are grossly within normal limits. Impression: No acute bony abnormality of the lumbar spine Electronically signed by Serg Roy 09-14-2024 4:[address] 09/14/24 15:10 EXAMINATION: CT of the pelvis performed and left hip without the administration of IV contrast TECHNIQUE: Helical CT images from the iliac crests through the symphysis pubis were obtained without contrast. Coronal and sagittal reformatted images were generated at a workstation for further assessment. Dose reduction techniques were achieved by using automatic exposure control and/or adjustment of mA and/or kV according to patient size and/or use of iterative reconstruction technique. COMPARISON: None HISTORY: Trauma FINDINGS: Bladder / Pelvic organs: Unremarkable. Bowel: No bowel obstruction. No abnormal bowel wall thickening. The appendix is unremarkable. Lymph nodes: No retroperitoneal, mesenteric, or pelvic lymphadenopathy. Peritoneum / Retroperitoneum: No free fluid or air within the abdomen. Vessels: No infrarenal aortic aneurysm. Bones and soft tissues: There is a fracture through the distal left superior pubic ramus extending into the pubic bone. Fracture of the lateral left sacral ala extending into the SI joint inferiorly. Mild blood products seen within the prevesical space on the left adjacent to the superior pubic ramus. The femora are intact. No femoral neck fractures. The acetabulum appear intact. IMPRESSION: Fractures through the left anterior aspect of the superior pubic ramus extending into the pubic bone, as well as the left sacral ala extending into the SI joint. Electronically signed by Serg Roy 09-14-2024 4:49 PM Prescription Drug Monitoring [place] Drug Monitoring Program reviewed and findings noted below (Patient does receive monthly prescriptions for lorazepam and Oxy IR from her family doctor.) MDM Narrative See ED Or section for further details of today's visit. The patient sustained a mechanical fall, falling backward and landing on her buttocks. CT imaging today does show evidence for nondisplaced left pelvic fracture. The case was discussed with the ER mattress spring encaser, orthopedics as well as the hospitalist service, and the patient will be admitted with expected transfer to a rehab facility for further management. Patient denies any injury to the head, neck or upper back, therefore additional advanced or trauma imaging was deferred. Labs were also ordered, reviewed and showed a hyponatremia, which the patient has had before in the past. The patient was administered IV saline while in the emergency department. I do not suspect any other etiologies for her fall as the patient gives a good description that would corroborate her history. The case was also discussed with Dr. Taylor, ED attending physician, who agrees with workup and outpatient plan of care. Impression Closed fracture of left pelvis, Unable to ambulate, Status post fall, Acute hyponatremia Discharge Plan Visit Data Chief Complaint: Hip Pain Stated Complaint: FALL, LEFT HIP PAIN ED Provider: Leonel Taylor ED Midlevel Provider: Lonnie Montanez Discharge Problem: Closed fracture of left pelvis, Unable to ambulate, Status post fall, Acute hyponatremia Forms Stand Alone Forms: My [employer] Prescriptions Prescriptions: No Action buspirone 15 mg tablet 15 mg PO UD Rx Instructions: per daughter she does 1 tab po qam and 2 tabs pm escitalopram oxalate 20 mg tablet 20 mg PO DAILY escitalopram oxalate 10 mg tablet 10 mg PO DAILY cholecalciferol (vitamin D3) 100 mcg (4,000 unit) tablet 100 mcg PO DAILY ondansetron 4 mg tablet,disintegrating 8 mg PO TID PRN (Reason: nausea) Xiidra 5 % Dropperette 1 drp OPB BID fenofibrate micronized 67 mg Capsule 67 mg PO HS omeprazole 40 mg capsule,delayed release(DR/EC) 40 mg PO QAM lorazepam 0.5 mg tablet 0.5 mg sublingual HS PRN (Reason: Insomnia) oxycodone 5 mg tablet 5 mg PO TID PRN (Reason: Pain) ezetimibe [Zetia] 10 mg Tablet 10 mg PO HS hydroxyzine HCl 25 mg tablet 25 mg PO DIRECTED PRN (Reason: per patient) losartan 50 mg Tablet 50 mg PO BID Qty: 60 0RF metoprolol tartrate 25 mg tablet 25 mg PO BID Qty: 60 0RF Rx Instructions: per daughter, she thinks it's once a day. She says shell double check duloxetine 30 mg capsule,delayed release(DR/EC) 30 mg PO DAILY Qty: 30 0RF famotidine 20 mg tablet 20 mg PO DAILY furosemide 20 mg tablet 20 mg PO DAILY PRN (Reason: Fluid Retention) Referrals Referrals: Edilia Kenyon MD [Primary Care Provider] - Discharge Problem: Closed fracture of left pelvis Qualifiers: Encounter type: initial encounter
--- NOTE | 2024-09-14 16:49 | CT Scan Report ---
CT lumbar spine without contrast History: Back pain Comparison: None Technique: Using multidetector thin collimation helical acquisition technique, axial, coronal and sagittal CT images through the lumbar spine were obtained without intravenous contrast. Dose reduction techniques were achieved by using automatic exposure control and/or adjustment of mA and/or kV according to patient size and/or use of iterative reconstruction technique. Findings: There are 5 lumbar type vertebrae. Posterior thad and screw fixation changes at L4, L5, and S1. L4-5 and L5-S1 disc spacer devices are present. There is trace anterolisthesis of L4 on L5 as well as L5 on S1. L4, L5, and S1 laminectomy changes are seen. Vertebral body heights are maintained. No visualized fracture. Small multilevel marginal osteophytes of the vertebral bodies. Mild disc height loss at L3-4. The visualized adjacent paraspinous tissues are grossly within normal limits. Impression: No acute bony abnormality of the lumbar spine Electronically signed by Serg Roy 09-14-2024 4:49 PM
--- NOTE | 2024-09-14 16:50 | CT Scan Report ---
EXAMINATION: CT of the pelvis performed and left hip without the administration of IV contrast TECHNIQUE: Helical CT images from the iliac crests through the symphysis pubis were obtained without contrast. Coronal and sagittal reformatted images were generated at a workstation for further assessment. Dose reduction techniques were achieved by using automatic exposure control and/or adjustment of mA and/or kV according to patient size and/or use of iterative reconstruction technique. COMPARISON: None HISTORY: Trauma FINDINGS: Bladder / Pelvic organs: Unremarkable. Bowel: No bowel obstruction. No abnormal bowel wall thickening. The appendix is unremarkable. Lymph nodes: No retroperitoneal, mesenteric, or pelvic lymphadenopathy. Peritoneum / Retroperitoneum: No free fluid or air within the abdomen. Vessels: No infrarenal aortic aneurysm. Bones and soft tissues: There is a fracture through the distal left superior pubic ramus extending into the pubic bone. Fracture of the lateral left sacral ala extending into the SI joint inferiorly. Mild blood products seen within the prevesical space on the left adjacent to the superior pubic ramus. The femora are intact. No femoral neck fractures. The acetabulum appear intact. IMPRESSION: Fractures through the left anterior aspect of the superior pubic ramus extending into the pubic bone, as well as the left sacral ala extending into the SI joint. Electronically signed by Serg Roy 09-14-2024 4:49 PM
[2024-09-14] MEDS: ONDANSETRON INJ 2 MG/ML 2 ML VIAL IV STA (17:50)
[2024-09-14] MEDS: MoRPHine SULFATE 4 MG/ML 1 ML CARP\\VIAL IV STA ×2 (17:50→20:36)
[2024-09-14 17:51] LABS: Basophils # (auto) 0.04 K/uL (0.00-0.20); Basophils % (auto) 0.4 %; Eosinophils # (auto) 0.09 K/uL (0.00-0.50); Eosinophils % (auto) 0.8 %; Hematocrit (blood only) 33.5 % (37.0-47.0); Hemoglobin 11.3 g/dl (12.0-16.0); Immature Granulocytes # (auto) 0.09 K/uL (0.01-0.20); Immature Granulocytes % (auto) 0.8 %; Lymphocytes # (auto) 1.06 K/uL (1.20-3.40); Lymphocytes % (auto) 9.3 %; Mean Corpuscular Hemoglobin 29.8 pg (25.0-34.0); Mean Corpuscular Hgb Conc 33.7 g/dL (32.0-36.0); Mean Corpuscular Volume 88.4 fL (80.0-100.0); Mean Platelet Volume 8.5 fL (9.4-12.4); Monocytes % (auto) 5.3 %; Neutrophils # (auto) 9.47 K/uL (1.40-6.50); Neutrophils % (auto) 83.4 %; Platelet Count 318 K/uL (130-400); RDW Coefficient of Variation 13.6 % (11.5-14.5); RDW Standard Deviation 43.8 fL (36.4-46.3); Red Blood Count 3.79 M/uL (4.20-5.40); White Blood Count 11.35 K/ul (4.8-10.8)
--- NOTE | 2024-09-14 17:51 | History & Physical Report ---
Date of Service September 14, 2024 Assessment & Plan (1) Pelvic fracture: Plan: -Admit to [facility] -Ortho consulted, nonsurgical fracture, appreciate recs -CT hip, lumbar spine and pelvis reviewed: Fractures through the left anterior aspect of the superior pubic ramus extending into the pubic bone, as well as the left sacral ala extending into the SI joint. No acute fracture of the lumbar spine, noted previous back surgery with Posterior thad and screw fixation changes at L4, L5, and S1. L4-5 and L5-S1 disc spacer devices are present. There is trace anterolisthesis of L4 on L5 as well as L5 on S1. L4, L5, and S1 laminectomy changes are seen. -Pain control prn with IV tylenol around the clock, increased frequency of oxycodone 5 mg PO, can use IV morphine for breakthrough pain - bowel regimen ordered -PT/OT (2) CKD (chronic kidney disease) stage 3, GFR 30-59 ml/min: Plan: - Cr. 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 Last drink was within 48 hours. Daughter at bedside is concerned for possible withdrawal sx. - AWSS ordered - Ativan 0.25 mg HS as discussed above - will require nursing reach out to team regarding any concerns for withdrawal sx prior to med administration. (7) Chronic pain disorder: (8) Opioid dependence: Plan: -Secondary to back pain status post back surgery as above -Will continue oxycodone 5 mg, increase frequency to Q6H, can consider increasing dose if she requires -Tylenol 1000 mg IV Q8H [id number] as she reports significant diarrhea with PO use. -MS 2 mg IV as needed severe pain (9) Hypertrophic cardiomyopathy: (10) HTN (hypertension): (11) Hyperlipidemia: Plan: -Can continue furosemide 20 mg once daily as needed, ezetimibe 10 mg, Losartan 50 mg twice daily, metoprolol tartrate 25 twice daily DVT ppx: teds, scds Lines: PIV 1 FEN/GI: Heart healthy CODE: Dispo: From home, likely to remain in the hospital x 1-2 days I spent a total of 77 minutes with greater than 50% of that time face to face with the patient, personally reviewing all current laboratories, imaging studies, past medication reconciliation, outpatient chart review, and discussion with specialists to collaborate care for the patient excluding time spent in the performance of separately billed services or time spent by another provider/QHP. Please see attending documentation for corrections and/or additions. 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 She typically ambulates independently, denies any presyncopal complaints. She fell backwards landing onto her buttocks and struggled to get back up. Once a nearby orthodox helped her to her feet, she had extreme pain in the left hip and was unable to walk. Daughter, Cami, is present with her at bedside and supports the history. CT imaging reviewed and has a nondisplaced left pelvic fracture. Ortho was consulted and although this is nonsurgical pt states that she cannot walk due to the pain. Pt reports the pain is somewhat controlled at rest however intolerable with attempt to ambulate in the ER. She currently rates pain as 8/10 and was just given her dose of oxycodone IR 5 mg in the ER. Pt admits to alcohol use regularly, drinks 2-3 small glasses of wine at a time. When attempt was made to quantify this in ounces she is unable to give me a direct answer. Daughter states she is concerned for the patient with withdrawal. Pt herself denies this. Pt takes multiple medications for anxiety including lorazepam, buspar, hydroxyzine, escitalopram, duloxetine. We discussed increased risk of falls with use of lorazepam and discussed reduction of the dose to attempt to wean off. Allergies Allergy/AdvReac Type Severity Reaction Status Date / Time aspirin Allergy Severe Hives Verified 07/19/24 13:32 NSAIDS (Non-Steroidal Allergy Severe Anaphylaxis Verified 07/19/24 13:32 Anti-Inflamma NOEL Inhibitors Allergy Unknown HIVES, Verified 07/19/24 13:32 SWELLING OF FACE ibuprofen Allergy Unknown Hives Verified 07/19/24 13:32 pantoprazole Allergy Unknown Unknown Verified 07/19/24 13:32 Drnxbwl-DSP-NgM Reductase Allergy Unknown "arms and Verified 07/19/24 13:32 Inhibitor legs achy" [Fjcedmx-Uio-Vwb Reductase Inhibitor] pravastatin [From Pravachol] AdvReac Severe liver Verified 07/19/24 13:32 complications gabapentin AdvReac Unknown Edema Verified 07/19/24 13:32 valacyclovir [From Valtrex] AdvReac Unknown Kidneys Verified 07/19/24 13:32 shut down Home Medications Medication Instructions Recorded Confirmed Type ezetimibe 10 mg tablet (Zetia) 10 mg PO HS 06/14/20 09/14/24 History fenofibrate micronized 67 mg 67 mg PO HS 06/14/20 09/14/24 History capsule lorazepam 0.5 mg tablet 0.5 mg sublingual HS PRN Insomnia 06/14/20 09/14/24 History omeprazole 40 mg capsule,delayed 40 mg PO QAM 06/14/20 09/14/24 History release oxycodone 5 mg tablet 5 mg PO TID PRN Pain 06/14/20 09/14/24 History lifitegrast 5 % eye drops in a 1 drp OPB BID 06/19/20 09/14/24 History dropperette (Xiidra) buspirone 15 mg tablet 15 mg PO UD 07/16/23 09/14/24 History cholecalciferol (vitamin D3) 100 100 mcg PO DAILY 07/16/23 09/14/24 History mcg (4,000 unit) tablet escitalopram oxalate 10 mg tablet 10 mg PO DAILY 07/16/23 09/14/24 History escitalopram oxalate 20 mg tablet 20 mg PO DAILY 07/16/23 09/14/24 History ondansetron 4 mg disintegrating 8 mg PO TID PRN nausea 07/16/23 09/14/24 History tablet hydroxyzine HCl 25 mg tablet 25 mg PO DIRECTED PRN per 12/31/23 09/14/24 History patient duloxetine 30 mg capsule,delayed 30 mg PO DAILY #30 caps 01/01/24 09/14/24 Rx release losartan 50 mg tablet 50 mg PO BID #60 tabs 01/01/24 09/14/24 Rx metoprolol tartrate 25 mg tablet 25 mg PO BID #60 tabs 01/01/24 09/14/24 Rx famotidine 20 mg tablet 20 mg PO DAILY 09/14/24 09/14/24 History furosemide 20 mg tablet 20 mg PO DAILY PRN Fluid Retention 09/14/24 09/14/24 History Past Med/Surg History Problem List (Updated 09/14/24 @ 19:11 by Karina Hernandez PA-C) SIADH (syndrome of inappropriate ADH production) Alcohol use Anxiety Acute hyponatremia (Acute) Status post fall (Acute) Unable to ambulate (Acute) Closed fracture of left pelvis (Acute) Pelvic fracture Episode of altered cognition AMS (altered mental status) (Acute) Thoracic spondylosis Bilateral occipital neuralgia Chronic daily headache Opioid dependence Thoracic back pain Myofascial pain Acute hyponatremia (Acute) Chronic pain disorder (Chronic) CKD (chronic kidney disease) stage 3, GFR 30-59 ml/min Hyponatremia (Acute) Hypertrophic cardiomyopathy (Chronic) Raynauds disease (Chronic) Hyperlipidemia (Chronic) HTN (hypertension) (Chronic) Encephalopathy (Acute) Altered mental status (Acute 05/30/13) Acute kidney injury (Acute 05/30/13) Hypomagnesemia (Acute) Hypokalemia (Acute) Hypophosphatemia (Acute) Malnutrition (Acute) Alcohol use (Chronic) Ulceration of oral mucosa (Acute) Medical History Vitamin D deficiency Mitral regurgitation Aortic stenosis Surgical History History of hysterectomy History of cholecystectomy Family History Other No pertinent family history Social History Smoking Status: Never smoker Second Hand Exposure: No; Do You Dip or Chew Tobacco: No; Hx Alcohol Use: Yes Alcohol type: wine Alcohol Intake Frequency Comment: was daily but pt reports cutting back over past few months Hx Substance Use: No Preferred Language: [place] Communication Ability: Effective Staff Physical Therapy Assistant Required: No Beliefs That Will Affect Care: None marital status: Unknown Current Living Situation: Alone Current Living Situation Comment: High Rise Apartment Complex Feels Safe at Home: Yes Assistive Devices: Glasses Review of Systems Review of Systems: Constitutional: No fever, sweats or chills Eyes: No diplopia, no worsening or blurred vision ENT: normal hearing, no trouble swallowing Respiratory: No cough, sputum, dyspnea at rest or on exertion Cardiovascular: No chest pain, tightness or palpitations Abdomen: No pain, nausea, vomiting, diarrhea or constipation Musculoskeletal: Left hip, groin pain, no other joint pain, calf pain, + trace a nkle swelling Neurologic: No weakness, numbness/tingling, or balance problems Psychiatric: No anxiety or depression Skin: No rash or itch Physical Exam Physical Exam: General: awake, alert, no apparent distress, thin, white female Head: Normocephalic, atraumatic ENT: PERRL, EOMI, no pharyngeal exudate, mucous membranes moist Chest: Clear to auscultation, on room air, no adventitious breath sounds Cardiac: Regular rate and rhythm, no murmur, no JVD, normal peripheral pulses, good capillary refill Abdominal: NABS x 4 quadrants, soft, nondistended, nontender to palpation, no rebound or guarding Extremities: Left hip pain with minimal movement. Able to bend knees bilaterally. Normal inspection, no peripheral edema or erythema, calfs nontender to palpation, no obvious areas of ecchymosis over hip or low back. Psych: Normal mood and affect Neuro: AAO x 3, Left hip flexation not able to be performed due to pain. Otherwise no motor deficits, speech is clear, no peripheral sensory deficits Results & Data Results & Data Vital Signs (Past 12 Hours) Vital Signs Temp Pulse Resp BP Pulse Ox O2 Del Method 09/14/24 14:49 36.5 C 70 20 186/76 H 92 Room Air Laboratory Results 09/14/24 17:40 WBC 11.35 H RBC 3.79 L Hgb 11.3 L Hct 33.5 L MCV 88.4 MCH 29.8 MCHC 33.7 RDW Std Deviation 43.8 RDW Coeff of Cindy 13.6 Plt Count 318 MPV 8.5 L Immature Gran % (Auto) 0.8 Neut % (Auto) 83.4 Lymph % (Auto) 9.3 Hayes % (Auto) 5.3 Eos % (Auto) 0.8 Baso % (Auto) 0.4 Neut # (Auto) 9.47 H Lymph # (Auto) 1.06 L Hayes # (Auto) 0.60 H Eos # (Auto) 0.09 Baso # (Auto) 0.04 Immature Gran # (Auto) 0.09 Sodium 128 L Potassium 4.3 Chloride 95 L Carbon Dioxide 28 Anion Gap 5 BUN 11 Creatinine 0.92 Est Cr Clr Drug Dosing Not Reportable eGFR 61.02 BUN/Creatinine Ratio 12.0 Glucose 101 H Calcium 9.1 Total Bilirubin 0.7 AST 26 ALT 17 Alkaline Phosphatase 58 Total Protein 6.9 Albumin 4.0 Globulin 2.9 Albumin/Globulin Ratio 1.4 Supervising Physician Co-Signing Physician Notes Patient is an 84-year-old female with history of hypertrophic cardiomyopathy, pulmonary hypertension, SIADH, CKD stage III, peripheral vascular disease, malnutrition and other medical problems presents with left hip pain after sustaining a mechanical fall today. Patient denies any chest pain, dyspnea, dizziness, nausea, vomiting, abdominal pain. Patient had trouble ambulating after the fall. CT showed nondisplaced pelvic fracture. Please review HPI for complete details of presentation. I personally reviewed blood work and imaging studies. Physical Exam: Vitals signs as noted above General Appearance: Thin, frail, elderly, no apparent distress Head: normocephalic, Atraumatic Eyes: normal inspection, EOMI Neck: supple, Trachea midline Respiratory/Chest: Normal breath sounds, CTA, No accessory muscle use Cardiovascular: S1, S2,+ murmur Abdomen/GI:Soft, Non tender, Bowel sounds present Extremities/Musculoskeletal:normal inspection, no edema, left hip decreased ROM secondary to pain. Neurologic/Psych:AAOX3, grossly no focal neurological deficits Skin: normal color, warm Pelvic fracture Secondary to mechanical fall Hypertensive urgency likely situational secondary to pain Chronic hyponatremia secondary to SIADH Mild leukocytosis likely reactive Alcohol use disorder Pain control, fall precautions, PT OT Orthopedics consulted Fluid restriction, monitor sodium levels Urine, serum osmolality, urine sodium pending Monitor for alcohol withdrawal Continue thiamine, folic acid I personally interviewed and examined the patient at bedside. I have reviewed the advanced practitioner's documentation on the date of service referred in note and agree with plan. Patient's care is coordinated with Karina Hernandez PA-C. Please refer to the documentation above for details of patient's presentation and for discussion of other issues. I spent a total [id number] coordinating, documenting, and providing care for this patient excluding time spent in the performance of separately billed services or time spent by another provider/QHP. (8) Opioid dependence Substance use status: uncomplicated Qualified Code(s): F11.20 - Opioid dependence, uncomplicated
[2024-09-14] MEDS: oxyCODONE HCL IR 5 MG TAB (IMMEDIATE RELEASE) PO STA (17:59)
[2024-09-14] MEDS: ONDANSETRON 4 MG OD TAB PO STA (17:59)
[2024-09-14 18:08] LABS: Alanine Aminotransferase 17 U/L (7-52); Albumin Globulin Ratio 1.4 (0.9-2); Alkaline Phosphatase 58 U/L (34-104); Anion Gap 5 (3-11); Aspartate Aminotransferase 26 U/L (13-39); Bilirubin,Total 0.7 mg/dl (0.2-1.0); Blood Urea Nitrogen 11 mg/dl (6-23); Calcium 9.1 mg/dl (8.6-10.3); Carbon Dioxide 28 mmol/L (21-32); Chloride 95 mmol/L (98-107); Globulin 2.9 gm/dl (2.5-4.0); Glucose 101 mg/dl (70-99(Fasting)); Potassium 4.3 mmol/L (3.5-5.1); Sodium 128 mmol/L (136-145); Total Protein 6.9 gm/dl (6.0-8.3)
[2024-09-14] MEDS: SODIUM CHLORIDE 0.9% 500 ML IV ONE (18:31)
[2024-09-14] MEDS: LIDOCAINE 5% 1 PATCH TD STA (19:16)
[2024-09-14] MEDS: ACETAMINOPHEN 1,000 MG/100 ML VIAL IV STA (20:44)
[2024-09-14] MEDS: ACETAMINOPHEN 1,000 MG/100 ML VIAL IV SCH (22:35)
[2024-09-14] MEDS: oxyCODONE HCL IR 5 MG TAB (IMMEDIATE RELEASE) PO PRN (23:07)
[2024-09-14] MEDS: LORazepam 0.5 MG TAB SL PRN (23:07)
[2024-09-14] MEDS: ARTIFICIAL TEARS OP PRN (23:08)
[2024-09-14] MEDS: busPIRone 15 MG TAB PO SCH (23:25)
[2024-09-14] MEDS: EZETIMIBE 10 MG TAB PO SCH (23:25)
[2024-09-14] MEDS: LOSARTAN POTASSIUM 50 MG TAB PO SCH (23:25)
[2024-09-14] MEDS: METOPROLOL TARTRATE 25 MG TAB PO SCH (23:25)
[2024-09-15] MEDS: ACETAMINOPHEN 500 MG TAB PO SCH (05:48)
[2024-09-15] MEDS ORDERED: ACETAMINOPHEN 500 MG TAB PO SCH (06:00)
[2024-09-15 06:53] LABS: Creatinine Urine Random 90.8 mg/dl
[2024-09-15 07:14] LABS: Hematocrit (blood only) 28.1 % (37.0-47.0); Hemoglobin 9.4 g/dl (12.0-16.0); Mean Corpuscular Hemoglobin 29.7 pg (25.0-34.0); Mean Corpuscular Hgb Conc 33.5 g/dL (32.0-36.0); Mean Corpuscular Volume 88.6 fL (80.0-100.0); Mean Platelet Volume 8.6 fL (9.4-12.4); Platelet Count 271 K/uL (130-400); RDW Coefficient of Variation 13.5 % (11.5-14.5); RDW Standard Deviation 44.1 fL (36.4-46.3); Red Blood Count 3.17 M/uL (4.20-5.40); White Blood Count 8.34 K/ul (4.8-10.8)
[2024-09-15 07:26] LABS: BUN Creatinine Ratio 15.2 (10-20); Calcium 8.2 mg/dl (8.6-10.3); Creatinine Clr Calc Pharmacy 33.1 ml/min; Potassium 3.9 mmol/L (3.5-5.1)
[2024-09-15] MEDS: ESCITALOPRAM OXALATE 10 MG TAB PO SCH (08:26)
[2024-09-15] MEDS: CHOLECALCIFEROL 25 MCG (1000 UNITS) TAB PO SCH (08:26)
[2024-09-15] MEDS: busPIRone 15 MG TAB PO SCH (08:26)
[2024-09-15] MEDS: DULoxetine HCL 30 MG CAP PO SCH (08:26)
[2024-09-15] MEDS: MULTIVITAMIN TAB PO SCH (08:27)
[2024-09-15] MEDS: FOLIC ACID 400 MCG TAB PO SCH (08:27)
[2024-09-15] MEDS: THIAMINE HCL 100 MG TAB PO SCH (08:27)
[2024-09-15] MEDS: bisacodyL 5 MG TABEC PO SCH (08:29)
[2024-09-15] MEDS: FAMOTIDINE 20 MG TAB PO SCH (08:30)
[2024-09-15] MEDS: POLYETHYLENE (MIRALAX) 17 GM PACK PO SCH (08:30)
--- OUTSIDE RECORDS SUMMARY | 2024-09-15 08:53 | External Medical Summary | Summary of Care ---
Author Name Unknown Organization [facility] Address [address] [place] [address] Phone [phone] Care Team Providers Care Dice Manager Name Role Phone Edilia Kenyon MD Primary Care Provider + Reason for Visit * Reason Onset Date Comments Medication Refill 09/04/2024 Encounter Details Date Type Department Care Team (Late st Contact Info) Description 09/04/2024 Refill General Internal Medicine [facility] [address] [facility] [place] [address] Edilia Kenyon MD [address] [place] [address] Anxiety state Allergies Active Allergy Reactions Criticality Noted Date [...] as of this encounter (statuses as of 09/06/2024) Medications HM Vitamin D3 100 MCG (4000 UT) Oral Capsule (Cholecalciferol) Take by mouth . Active Fluticasone Propionate 50 MCG/ACT Nasal Suspension (Flonase) Administer 1 Paloma into nostril in the morning and 1 Paloma before bedtime. 15.8 mL 3 10/15/19 23 Active Azelastine HCl 0.1 % Nasal Solution (Astelin) Administer 2 Sprays into nostril in the morning and 2 Sprays before bedtime. 30 mL 12 10/15/19 23 Active Zoster Vac Recomb Adjuvanted 50 MCG/0.5ML Intramuscular Suspension Reconstituted (Shingrix)Indicat ions:Need for vaccination for zoster Inject 0.5 mL into a large muscle now and repeat dose in 60 to 180 days 1 Each 1 05/06/20 23 Active Fenofibrate Micronized 67 MG Oral CapsuleIndication s:Hypertensive heart 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 failure,Dyslipide brent, goal LDL below 130,History of tobacco use Take 1 Capsule by mouth in the morning. 90 Capsule 3 07/19/19 24 Active Omeprazole 40 MG Oral Capsule Delayed Release (PriLOSEC) Take 1 Capsule by mouth in the morning. 90 Capsule 3 08/05/19 24 Active Ezetimibe 10 MG Oral Tablet (Zetia)Indication s:Dyslipidemia, goal LDL below 130 TAKE 1 TABLET ONCE DAILY FOR CHOLESTEROL 90 Tablet 3 11/11/19 24 Active Xiidra 5 % Ophthalmic Solution (Lifitegrast) place 1 drop into both eyes twice a day 180 Each 1 4 2:09 PM EDT 12/03/19 24 Active Furosemide 20 MG Oral Tablet (Lasix)Indication s:Edema, unspecified type One pill once daily as needed. 30 Tablet 11 01/04/20 24 Active DULoxetine HCl 30 MG Oral Capsule Delayed Release Particles (Cymbalta)Indicat ions:Moderate episode of recurrent major depressive disorder (HCC) Take 1 Capsule by mouth in the morning. Do not cut, crush or chew. 90 Capsule 3 01/31/20 24 Active Losartan Potassium 50 MG Oral Tablet (Cozaar) Take 1 Tablet by mouth in the morning and 1 Tablet before bedtime. 60 Tablet 02/22/20 24 Active Metoprolol Tartrate 25 MG Oral Tablet (Lopressor) Take 1 Tablet by mouth in the morning and 1 Tablet before bedtime. 60 Tablet 11 02/22/20 24 Active busPIRone HCl 15 MG Oral Tablet (Buspar)Indicatio ns:Depression with anxiety Take 1 Tablet by mouth in the morning and 1 Tablet at noon and 1 Tablet before bedtime. 90 Tablet 5 03/13/20 24 Active Escitalopram Oxalate 10 MG Oral Tablet (Lexapro) One pill once daily along with Lexapro 20 mg daily( Total dose of 30 mg daily) 90 Tablet 3 04/11/20 24 Active Escitalopram Oxalate 20 MG Oral Tablet (Lexapro)Indicati ons:Current episode of major depressive disorder without prior episode, unspecified depression episode severity Take 1 Tablet by mouth in the morning. 90 Tablet 3 04/11/20 24 Active Ondansetron HCl 4 MG Oral Tablet (Zofran)Indicatio ns:Nausea without vomiting TAKE 2 TABLETS 3 X A DAY NEEDED FOR NAUSEA 50 Tablet 1 08/01/19 25 Active LORazepam 0.5 MG Oral Tablet (Ativan)Indicatio ns:JAYLYN (generalized anxiety disorder) TAKE ONE TABLET BY MOUTH AT BEDTIME NEEDED FOR INSOMNIA 30 Tablet 08/16/19 25 Active oxyCODONE HCl 5 MG Oral Tablet (Oxy IR)Indications:Ch ronic upper back pain Take 1 Tablet by mouth every 8 hours as needed for Pain, Moderate. Continued script 90 Tablet 08/16/19 25 Active Xiidra 5 % Ophthalmic Solution (Lifitegrast) Instill 1 drop into both eyes twice a day 180 Each 1 5 7:01 AM EST 08/18/19 25 Active hydrOXYzine HCl 25 MG Oral TabletIndications :Anxiety state Take 1 Tablet by mouth 2 times a day as needed for Anxiety. 60 Tablet 09/07/19 25 Active hydrOXYzine HCl 25 MG Oral TabletIndications :Anxiety state Take 1 Tablet by mouth 2 times a day as needed for Anxiety. 60 Tablet 07/06/19 25 025 Discontin ued(Refil l) documented as of this encounter (statuses as of 09/06/2024) Active Problems Problem Noted Date Diagnosed Date Opioid dependence, uncomplicated 07/20/2024 Assessment & Plan (08/31/2024 11:47 AM EDT): Continue to follow with pain mgmt. Updated UDS ordered. 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 Migraine without aura, intractable 06/27/2020 Age-related osteoporosis wit hout current pathological fracture 01/18/2020 Anxiety state 01/18/2020 Assessment & Plan (08/31/2024 11:47 AM EDT): Stable--continue current meds. Controlled substance agreement signed 04/18/2019 History of colon polyps 08/29/2018 HTN, goal below 140/90 07/13/2018 Assessment & Plan (08/31/2024 11:47 AM EDT): Continue current meds. Controlled. Gastroesophageal reflux disease 07/13/2018 Assessment & Plan (08/31/2024 11:47 AM EDT): Continue current meds. Peripheral vascular disease 11/20/2016 Overview (03/22/2017): ICD-10 update of inactive term Assessment & Plan (08/31/2024 11:47 AM EDT): History of tobacco use 10/20/2010 Dyslipidemia, goal LDL below 130 03/05/2010 Assessment & Plan (08/31/2024 11:47 AM EDT): Continue current meds. Vitamin D deficiency 01/02/2010 Overview (01/02/2010): 25 [place] Vitamin D of 17 ng/ml in 2007 Assessment & Plan (08/31/2024 11:47 AM EDT): Continue current supplement. Recent level WNL. Hypertrophic cardiomyopathy 12/17/2006 Pulmonary arterial hypertension documented as of this encounter (statuses as of 09/06/2024) Resolved Problems Problem Noted Date Diagnosed Date [...] pain syndrome 04/24/20112019 Hyperparathyroidism 10/28/2009 11/08/19 22 Overview (03/22/2017): ICD-10 update of inactive term Pain in limb 05/13/2009 04/20/2011 Hypertensive heart disease 04/18/2009 1 Overview (04/18/2009): Per Heart Failure Taxonomy Protocol. Dyslipidemia, goal to be determined 09/19/2007 04/20/2011 Edema 06/29/2007 11/20/2016 Chest pain, musculoskeletal 06/29/2007 11/20/2016 Hypertensive heart disease, severity unknown 11/20/2016 ADVANCE DIRECTIVE INFORMATION 12/29/2005 04/24/2024 Overview (12/29/2005): Advised to bring copy in to be scanned into EMR BENIGN NEOPLASM LG BOWEL 12/05/200404/2019 Lump or mass in breast 09/15/200211/20 Corns and callosities 09/15/20022008 BACKACHE NOS 03/25/2000 11/20/2016 SATYA HYPERTEN HRT DIS NOS 03/25/2000 Overview (04/18/2009): Per Heart Failure Taxonomy Protocol. Renal failure, acute 015 Overview (06/12/2013): requiring hemodialysis, thought d/t Valtrex documented as of this encounter (statuses as of 09/06/2024) Immunizations Name Administration Dates Next Due COVID-19 mRNA, LNP-s, No Pre serve, 2-Dose Series (Pfizer) 08/20/2020,07/30/2020 Pneumococcal Conjugate Vacc, 13 Valent (Prevnar) 09/13/2014 Pneumococcal Polysaccharide PPV23 (Pneumovax) 05/21/2006 Season Influenza, Quad, PF, Adjuvanted, 65+ Yrs, IM (FLUAD) 02/29/2020 Seasonal Influenza Vac., MDV , IM, 0.5 mL (Fluzone) 02/22/2015,03/07/2014,03/14/2013,03/07,04/24/2011,03/05/2010,04/19/2009 ,04/28/2007,05/21/2006 Seasonal Influenza, High Dos e, Trivalent, PF, IM (Fluzone HD) 04/13/2024 Seasonal Influenza, PF, 6 M & above, IM , (FluLaval or Fluzone) 06/02/2018 Seasonal Influenza, Quadriva lent Hd (Fluzone Hd) 03/19/2023,02/26/2022,05/23/2021 Seasonal Influenza, Quadriva lent, No Preserve, IM 02/25/2017,04/09/2016 Seasonal Influenza, Trivalen t, Adjuvanted, 65+ YRS, PF, (Fluad) 04/18/2019 TDAP (age 10 and older)(Boostrix) 05/06/2023 [...] on file 07/22 PHQ-2 Answer Date Recorded PHQ Adult Total Score 17 01/18/2024 Hunger Vital Sign Answer Date Recorded Within the past 12 months, y ou worried that your food would run out before you got the money to buy more. Never true 01/18/20 24 Within the past 12 months, t he food you bought just didn't last and you didn't have money to get more. Never true 01/18/2024 Childcare Answer Date Recorded Do you feel overwhelmed with taking care of a child, family member or friend? No 01/18/2024 Does your family need help f inding childcare? (Household - for ages 0-17 years) Not on file 01/18/2024 Clothing Answer Date Recorded Have you been unable to get clothing when it was really needed? No 01/18/2024 Is your family able to get c lothes or diapers when needed? (Household - for ages 0-17 years) Not on file 01/18/2024 Personal Safety Answer Date Recorded Do you feel unsafe or have concerns for your saf ety? No 01/18/2024 Do you have concerns for you r family's safety? (Household - for ages 0-17 years) Not on file 01/18/2024 Utilities Answer Date Recorded Do you have trouble paying y our heating, water, or electric bill? No 01/18/2024 Is your family able to pay t he heat, water, or electric bill? (Household - for ages 0-17 years) Not on file 01/18/2024 Does your family have access to good internet? (Household - for ages 0-17 years) Not on file 01/18/2024 Employment Status Answer Date Recorded Are you unemployed or without regular income? No 01/18/2024 Does the household have a re gular source of income? (Household - for ages 0-17 years) Not on file 01/18/2024 Social Connections Answer Date Recorded How often do you feel lonely or isolated from th ose around you? Never 01/18/2024 Financial Resource Strain Answer Date R ecorded Do you have any trouble payi ng for your medications, or do you think you might in the future? No 01/18/2024 Does your family have troubl e paying for medicine? (Household - for ages 0-17 years) Not on file 01/18/2024 Transportation Needs Answer Date Record ed Do you have trouble getting a ride to medical visits or work? (Adult - for ages 18 years and over) Not on file 01/18/2024 Does your family have a hard time getting a ride to doctors visits? (Household - for ages 0-17 years) Not on file 01/18/2024 Has lack of transportation k ept you from medical appointments, meetings, work, or from getting things needed for daily living? Check all that apply. No 01/18/2024 Do you (or your family) have trouble finding or paying for a ride (transportation)? (Household - for ages 0-17 years) Not on file 01/18/2024 Housing Stability Answer Date Recorded Do you currently live in a s helter or have no steady place to sleep at night? Yes 01/18/2024 Do you think you are at risk of becoming homeless? (Adult - for ages 18 years and over) Not on file 01/18/2024 Does your family worry about paying for your home or becoming homeless? (Household - for ages 0-17 years) Not on file 0 01/18/2024 Are you homeless or worried that you might be in the future? No 01/18/2024 Are you (or your family) terence eless or worried that you might be in the future? (Household - for ages 0-17 years) Not on file Food Insecurity Answer Date Recorded Do you need food for this week? No 01/18/2024 Are you able to get enough f ood for your family? (Household - for ages 0-17 years) Not on file 01/18/2024 Does your family need food t his week? (Household - for ages 0-17 years) Not on file 01/18/2024 Do you always have enough fo od for your family? (Household - for ages 0-17 years) Not on file 01/18/2024 Food Insecurity Answer Date Recorded Within the past 12 months, y ou worried that your food would run out before you got the money to buy more. Never true 01/18/20 Within the past 12 months, t he food you bought just didn't last and you didn't have money to get more. Never true 01/18/2024 Do you need food for this week? No 01/18/2024 Comments No Sex and Gender Information Value Date Recorded Sex Assigned at Female 09/12/2018 4:25 PM EDT Legal Sex Female 7:20 AM EST Gender Identity Female 09/12/2018 4:25 PM EDT Sexual Orientation Straight 09/12/2018 4: 25 PM EDT documented as of this encounter Miscellaneous Notes * Telephone Encounter - Edilia Kenyon MD - 09/06/2024 8:05 AM EDTSigned Prescriptions: Disp Refills hydrOXYzine HCl 25 MG Oral Tablet 60 Tab*0 Sig: Take 1 Tablet by mouth 2 times a day as needed for Anxiety. Authorizing Provider: EDILIA KENYON * Telephone Encounter - Ceferino Hogan [facility] - 09/05/2024 5:48 PM EDTPending Prescriptions: Disp Refills hydrOXYzine HCl 25 MG Oral Tablet 60 Tab*0 Sig: Take 1 Tablet by mouth 2 times a day as needed for Anxiety. * Telephone Encounter - Ceferino Hogan [facility] - 09/05/2024 5:48 PM EDT Refill pharmacists currently not authorized to approve refills for the pended medication(s) per refill protocol. Please approve if appropriate. Pending Prescriptions: Disp Refills hydrOXYzine HCl 25 MG Oral Tablet 60 Tab*0 Sig: Take 1 Tablet by mouth 2 times a day as needed for Anxiety. Last Visit: 08/31/2024 (in office), Visit date not found (telemedicine) Next Visit: 03/22/2025 If no future appointments scheduled, and last appointment is greater than a year ago, please schedule patient for a follow-up appointment Last date the medication was ordered: 07-06-24 Pharmacy: [id number] [facility] Is this request for a controlled substance?No Urine Drug Screen: Results for orders placed or performed in visit on 08/31/24 PAIN MANAGEMENT DRUG PANEL, URINE W/ INTERPRETATION Result Value Pain Management Interpretation Based on the medication information provided: The positive oxycodone screening result is CONSISTENT with oxycodone use. Confirmatory testing is available upon request. The presence of lorazepam is CONSISTENT with lorazepam use. Amphetamines Screen, U Negative Benzodiazepines Screen, U Refer to confirmation results (A) Cannabinoids Screen, U Negative Cocaine Metabolite Screen, U Negative Fentanyl Screen, U Negative Hydrocodone Screen, U Negative Methadone Metabolite Screen, U Negative Morphine/Codeine Screen, U Negative Oxycodone Screen, U Positive (A) Specimen Validity Interpretation Normal Creatinine, U 100 Narrative Cutoff Concentrations: Drug Level Amphetamines 500 [...] SCREEN, URINE, W/ CONFIRMATION Result Value Amphetamine Screen, U NEGATIVE Benzodiazepines Screen, U NEGATIVE Cannabinoids Screen, U NEGATIVE Cocaine Metabolite Screen, U NEGATIVE HYDROCODONE NEGATIVE Morphine/Codeine Screen, U NEGATIVE Methadone Metabolite Screen, U NEGATIVE Oxycodone Screen, U POSITIVE (A) TOX COMMENT THE ABOVE SCREENING RESULTS ARE PRESUMPTIVE AND CAN ONLY BE USED FOR MEDICAL PURPOSES. POSITIVE RESULTS REFLEX TO CONFIRMATORY TESTING. Cutoff Concentration *Note: Due to a large number of results and/or encounters for the requested time period, some results have not been displayed. A complete set of results can be found in Results Review. Patient Phone Numbers Labs: Lab Results Component Value Date/Time CREAT 1.0 07/20/2024 12:24 PM CREAT 1.3 (H) 07/18/2020 12:47 PM POTASSIUM 4.9 07/20/2024 12:24 PM POTASSIUM 5.2 (H) 07/18/2020 12:47 PM TSH 4.16 06/23/2024 11:27 AM TSH 1.84 03/25/2020 12:47 PM LDL 84 05/04/2023 01:50 PM LDL 79 10/01/2020 02:42 PM LDL 90 09/04/2019 03:31 PM ALT 15 07/20/2024 12:24 PM ALT 22 06/17/2020 03:13 PM HGBA1C 5.8 (H) 08/31/2024 11:52 AM HGBA1C 5.6 09/04/2019 03:31 PM Jeremi Lloyd.Ph. Clinical Pharmacist [facility] [address] [place] [address], [address] [place] [address] MC: [phone] 09/05/2024,5:48 PM documented in this encounter Plan of Treatment Upcoming Encounters Date Type Department Care Team (Jena Contact Info) Description 09/22/2024 2:40 PM EDT Office Visit Nephrology, [facility] [address] [place] [address] Jordyn Santillan MD [address] [place] [address] 10/30/2024 10:00 AM EDT Office Visit Ophthalmology, [facility] [address] [place] [address] Hector Lopez, DO [address] [place] [address] 01/15/2025 3:30 PM EDT Office Visit Cardiology, [facility] [address] [facility] [place] [address] Kvng Choudhary PA-C [address] [place] [address] 03/22/2025 1:40 PM EDT Office Visit General Internal Medicine [facility] [address] [place] [address] Edilia Kenyon MD [address] [facility] [place] [address] Health Maintenance Due Date Last Done Comments Adult Wellness Visit 2005 Zoster Vaccines (2 of 3) 07/23/2009 05/28/2009 COVID-19 Vaccine ( season) 2024 08/20/2020, 07/30/2020 *BISPHONATE OR OTHER ACCEPTABLE MEDICATION NEEDED FOR OSTEOPOROSIS (REFER TO SMARTSET #1146) 05/09/2024 Depression Monitoring 01/17/2025 01/18/2024 DXA Scan 04/21/2025 04/21/2023, 1106/2022, 08/16/2019, Additional history exists CKD HGB USE SMARTSET 00275 07/20/202507/20, 07/20/2024, 06/23/2024, Additional history exists Albumin/Creatinine Ratio 08/31/202508/31/2 025, 05/06/2023, 04/09/2016, Additional history exists CKD PHOS USE SMARTSET 39429 08/31/202508/19, 05/04/2023, 12/17/2021, Additional history exists HbA1c 08/31/2025 08/31/2024, 08/19, 03/17/2021, Additional history exists DTap/Tdap Vaccines (3 - Td or Tdap) 05/06/2033 05/06/2023, 09/29/2011 Hepatitis B Vaccine Completed 11/03/2002, 06/05/2002, 05/05/2002 Pneumococcal Vaccine: 50+ Years Completed 09/13/2014, 05/21/2006 Influenza Vaccine (FLU shot) Completed , 03/19/2023, 02/26/2022, Additional history exists VITAMIN D LEVEL ONCE IN A LIFETIME-USE SMARTSET# 11916 Completed 07/20/2024, 05/04/2023, 12/17/2021, Additional history exists HPV (Gardasil) Vaccine Aged Out No lo nger eligible based on patient's age to complete this topic MENINGOCOCCAL (MENACTRA/MENVEO) Aged Out No longer eligible based on patient's age to complete this topic Meningitis B Vaccine (Bexsero/Trumemba) Aged Out No longer eligible based on patient's age to complete this topic documented as of this encounter Medical Devices Not on filedocumented as of this encounter Visit Diagnoses Diagnosis Elevated ferritin level- Primary Other abnormal blood chemistry Dyslipidemia, goal LDL below 130 Other and unspecified hyperlipidemia Prediabetes Other abnormal glucose HTN, goal below 140/90 Unspecified essential hypertension 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) Peripheral vascular disease (HCC) Peripheral vascular disease, unspecified Gastroesophageal reflux disease without esophagitis Esophageal reflux Vitamin D deficiency Unspecified vitamin D deficiency Moderate episode of recurrent major depressive disorder (HCC) Anxiety state Anxiety state, unspecified Opioid dependence, uncomplicated (HCC) 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
--- OUTSIDE RECORDS SUMMARY | 2024-09-15 08:53 | External Medical Summary | Summary of Care ---
Author Name Unknown Organization [facility] Address [address] [facility] [place] [address] Phone [phone] Care Team Providers Care Grocery Checker Name Role Phone Edilia Kenyon MD Primary Care Provider + Reason for Visit * Reason Onset Date Comments Medication Refill 09/11/2024 Encounter Details Date Type Department Care Team (Late st Contact Info) Description 09/11/2024 Refill General Internal Medicine [facility] [address] [facility] [place] [phone] Edilia Kenyon MD [address] [place] [address] JAYLYN (generalized anxiety disorder); Chronic upper back [...] as of this encounter (statuses as of 09/14/2024) Medications Vitamin D3 100 MCG (4000 UT) Oral Capsule (Cholecalciferol) Take by mouth . Active Fluticasone Propionate 50 MCG/ACT Nasal Suspension (Flonase) Administer 1 [place] into nostril in the morning and 1 [place] before bedtime. 15.8 mL 10/15/19 23 Active Azelastine HCl 0.1 % [...] before bedtime. 60 Tablet 02/22/20 24 Active busPIRone HCl 15 MG [...] NAUSEA 50 Tablet 1 08/01/19 25 Active Xiidra 5 % Ophthalmic Solution (Lifitegrast) Instill 1 drop into both eyes twice a day 180 Each 1 5 7:01 AM EST 08/18/19 25 Active hydrOXYzine HCl 25 MG Oral TabletIndications :Anxiety state Take 1 Tablet by mouth 2 times a day as needed for Anxiety. 60 Tablet 09/07/19 25 Active LORazepam 0.5 MG Oral Tablet (Ativan)Indicatio ns:JAYLYN (generalized anxiety disorder) TAKE ONE TABLET BY MOUTH AT BEDTIME NEEDED FOR INSOMNIA 30 Tablet 09/14/19 25 Active oxyCODONE HCl 5 MG Oral Tablet (Oxy IR)Indications:Ch ronic upper back pain Take 1 Tablet by mouth every 8 hours as needed for Pain, Moderate. Continued script 90 Tablet 09/14/19 25 Active LORazepam 0.5 MG Oral Tablet (Ativan)Indicatio ns:JAYLYN (generalized anxiety disorder) TAKE ONE TABLET BY MOUTH AT BEDTIME NEEDED FOR INSOMNIA 30 Tablet 08/16/19 25 025 Discontin ued(Refil l) oxyCODONE HCl 5 MG Oral Tablet (Oxy IR)Indications:Ch ronic upper back pain Take 1 Tablet by mouth every 8 hours as needed for Pain, Moderate. Continued script 90 Tablet 08/16/19 25 025 Discontin ued(Refil l) documented as of this encounter (statuses as of 09/14/2024) Active Problems Problem Noted Date Diagnosed Date [...] as of this encounter (statuses as of 09/14/2024) Resolved Problems Problem Noted Date Diagnosed Date [...] Hypertensive heart disease, severity unknown 7 11/20/2016 ADVANCE DIRECTIVE INFORMATION 12/29/2005 04/24/2024 Overview [...] as of this encounter (statuses as of 09/14/2024) Immunizations Name Administration Dates Next Due COVID-19 mRNA, LNP-s, No Pre serve, 2-Dose Series (Sococo) 08/20/2020,07/30/2020 Pneumococcal Conjugate Vacc, 13 Valent (Prevnar) [...] No 01/18/2024 Does the household have a presbyterian kaseman hospitallar source of income? (Household - for ages [...] encounter Miscellaneous Notes * Telephone Encounter - Libby Wasserman PA-C - 09/14/2024 8:07 AM EDTSigned Prescriptions: Disp Refills LORazepam 0.5 MG Oral Tablet (Ativan) 30 Tab*0 Sig: TAKE ONE TABLET BY MOUTH AT BEDTIME NEEDED FOR INSOMNIA Authorizing Provider: AUGUSTA YOU oxyCODONE HCl 5 MG Oral Tablet (Oxy IR) 90 Tab*0 Sig: Take 1 Tablet by mouth every 8 hours as needed for Pain, Moderate. Continued script Authorizing Provider: AUGUSTA TABARES * Telephone Encounter - Augusta You MD - 09/13/2024 1:59 PM EDTSigned Prescriptions: Disp Refills LORazepam 0.5 MG Oral Tablet (Ativan) 30 Tab*0 Sig: TAKE ONE TABLET BY MOUTH AT BEDTIME NEEDED FOR INSOMNIA Authorizing Provider: AUGUSTA YOU oxyCODONE HCl 5 MG Oral Tablet (Oxy IR) 90 Tab*0 Sig: Take 1 Tablet by mouth every 8 hours as needed for Pain, Moderate. Continued script Authorizing Provider: AUGUSTA TABARES * Telephone Encounter - Augusta You MD - 09/13/2024 1:51 PM EDT Script sent Labs reviewed - Sugar stable , phos normal . Urine good ferritin high but stable and trans saturation normal. One hemochromatosis gene +ve which can be present in 4-6 % of normal people without hemachromatosis disease. Suspect that's only false positive jaimie at this age since she is overall healthy with normal liver and fairly good kidney function and she is not diabetic. . Suspect high ferritin from age , chronic inflammation or chronic disease * Telephone Encounter - Jose Michael RN - 09/13/2024 1:15 PM EDT Received transferred call and spoke with patient. Patient said she has broken ribs and is in a lot of pain. Patient said she had lab work and x-ray done on 08/31/2024 and has not heard back regardingthe lab work. Please also see previous messages and advise. * Telephone Encounter - Paula Arshad PHARM Tech - 09/13/2024 1:11 PM EDT Pt called asking to speak to a nurse, transferred to the nurse line Thank you, Paula Arshad,[facility] Used [employer]ovator [employer] [facility] ([facility]) 09/13/2024, 1:11 PM * Telephone Encounter - Libby Allen [facility] - 09/11/2024 4:56 PM EDTPending Prescriptions: Disp Refills LORazepam 0.5 MG Oral Tablet (Ativan) 30 Tab*0 Sig: TAKE ONE TABLET BY MOUTH AT BEDTIME NEEDED FOR INSOMNIA oxyCODONE HCl 5 MG Oral Tablet (Oxy IR) 90 Tab*0 Sig: Take 1 Tablet by mouth every 8 hours as needed for Pain, Moderate. Continued script --- * Telephone Encounter - Libby Allen [facility] - 09/11/2024 4:55 PM EDT Per tech note: "Pt has broken ribs " I have reviewed the patients controlled substance dispensing history in the Prescription Drug Monitoring Program in compliance with the [facility] regulations before prescribing a controlled substance. PDMP checked on 09/11/2024. Pending Prescriptions: Disp Refills LORazepam 0.5 MG Oral Tablet (Ativan) 30 Tab*0 Sig: TAKE ONE TABLET BY MOUTH AT BEDTIME NEEDED FOR INSOMNIA oxyCODONE HCl 5 MG Oral Tablet (Oxy IR) 90 Tab*0 Sig: Take 1 Tablet by mouth every 8 hours as needed for Pain, Moderate. Continued script Last Visit: 08/31/2024 (in office), Visit date not found (telemedicine) Next Visit: 03/22/2025 Date medication was last filled: 08/17, 08/17 Date medication is due for refill: 09/15, 09/15 [id number] [address] [facility] Is this request for a controlled substance? [...] in Results Review. Please approve if appropriate. Thank you, Libby Allen, PharmD Clinical Pharmacist [facility] ([facility]) 09/11/24 4:55 PM [phone] * Telephone Encounter - Nicole Hinkle clinical information systems director - 09/11/2024 4:47 PM EDT Pt has broken ribs Did you pend patient's preferred pharmacy and medication before forwarding?yes Pharmacy: [id number] Pending Prescriptions: Disp Refills LORazepam 0.5 MG Oral Tablet (Ativan) 30 Tab*0 Sig: TAKE ONE TABLET BY MOUTH AT BEDTIME NEEDED FOR INSOMNIA oxyCODONE HCl 5 MG Oral Tablet (Oxy IR) 90 Tab*0 Sig: Take 1 Tablet by mouth every 8 hours as needed for Pain, Moderate. Continued script Last Visit: 08/31/2024 (in office), Visit date not found (telemedicine) Next Visit: 03/22/2025 If no future appointments scheduled, and last appointment is greater than a year ago, please schedule patient for a follow-up appointment Last date the medication was ordered: Is this request for a controlled substance?Yes, What was the last refill date 08/16 w/ quantity 5 mgand dosage 0.5 mg and Urine Drug Screen Not completed Urine Drug Screen: Results for orders placed [...] 11:52 AM HGBA1C 5.6 09/04/2019 03:31 PM documented in this encounter Plan of Treatment Upcoming Encounters Date Type Department Care Team (Late st Contact Info) Description 09/22/2024 2:40 PM EDT Office Visit Nephrology[facility]fany [address] [place] [address] Jordyn Santillan MD [address] [place] [address] 10/30/2024 10:00 AM EDT Office Visit Ophthalmology, [facility] [address] [place] [phone] Hector Lopez T, DO [address] [place] [address] 01/15/2025 3:30 PM EDT Office Visit Cardiology, [facility] [address] [place] [phone] Kvng Choudhary PA-C [address] [place] [address] 03/22/2025 1:40 PM EDT Office Visit General Internal Medicine [facility] [address] [facility] [address] [place] [address] Edilia Kenyon MD [address] [facility] [place] [address] Health Maintenance Due Date Last Done Comments Adult Wellness Visit 2005 Zoster Vaccines (2 of 3) 07/23/2009 05/28/2009 COVID-19 Vaccine ( season) 2024 08/20/2020, 07/30/2020 *BISPHONATE OR OTHER ACCEPTABLE MEDICATION NEEDED FOR OSTEOPOROSIS (REFER TO SMARTSET #1146) 05/09/2024 Depression Monitoring 01/17/2025 01/18/2024 DXA Scan 04/21/2025 04/21/2023, 110 06/2022, 08/16/2019, Additional history exists CKD HGB USE SMARTSET 05219 07/20/202507/20, 07/20/2024, 06/23/2024, Additional history exists Albumin/Creatinine Ratio 08/31/202508/31/2 025, 05/06/2023, 04/09/2016, Additional history exists CKD PHOS USE SMARTSET 89850 08/31/202508/19, 05/04/2023, 12/17/2021, Additional history exists HbA1c 08/31/2025 08/31/2024, 08/19, 03/17/2021, Additional history exists DTap/Tdap Vaccines (3 - Td or Tdap) 05/06/2033 05/06/2023, 09/29/2011 Hepatitis B Vaccine Completed 11/03/2002, 06/05/2002, 05/05/2002 Pneumococcal Vaccine: 50+ Years Completed 09/13/2014, 05/21/2006 Influenza Vaccine (FLU shot) Completed , 03/19/2023, 02/26/2022, Additional history exists VITAMIN D LEVEL ONCE IN A LIFETIME-USE SMARTSET# 07040 Completed 07/20/2024, 05/04/2023, 12/17/2021, Additional history exists [...] pain on left side Chest pain, unspecified JAYLYN (generalized anxiety disorder) Generalized anxiety disorder Chronic upper back pain Backache, unspecified documented in this encounter Advance Directives Documents on File Type Date Recorded Patient Mobile Qa Tester Expl anation Advance Directives and Jayne Rainey 12/25/2018 LIVING WILL Power of Canvas Cutter 12/25/2018 POWER OF A TTORNEY Care Teams Grocery Checker Relationship Specialty Start Date End Date Edilia Kenyon MD [address] [place] [address] PCP - General Internal Medicine 07/28/19 documented as of this encounter
--- OUTSIDE RECORDS SUMMARY | 2024-09-15 08:53 | External Medical Summary | Summary of Care ---
Author Name Unknown Organization [facility] Address [address] [facility] [place] [address] Phone [phone] Care Team Providers Care Professor Of Biology Name Role Phone Edilia Kenyon MD Primary Care Provider + Encounter Details Date Type Department Care Team (Late st Contact Info) Description 09/13/2024 Refill General Internal Medicine [facility] [address] [place] [address] Edilia Kenyon MD [address] [place] [phone] Gastroesophageal reflux disease without esophagitis* Allergies Active Allergy Reactions Criticality Noted Date [...] this encounter (statuses as of 09/14/2024) Medications HM Vitamin D3 100 MCG (4000 UT) Oral Capsule (Cholecalciferol) Take by mouth . Active Fluticasone Propionate 50 MCG/ACT Nasal Suspension (Flonase) Administer 1 [place] into nostril in the morning and 1 [place] before bedtime. 15.8 mL 3 3 Active Azelastine HCl 0.1 % Nasal Solution (Astelin) Administer 2 Sprays into nostril in the morning and 2 Sprays before bedtime. 30 mL 12 3 Active Zoster Vac Recomb Adjuvanted 50 MCG/0.5ML Intramuscular Suspension Reconstituted (Shingrix)Indicat ions:Need for vaccination for zoster Inject 0.5 mL into a large muscle now and repeat dose in 60 to 180 days 1 Each 1 3 Active Fenofibrate Micronized 67 MG Oral CapsuleIndication s:Hypertensive heart 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 failure,Dyslipide brent, goal LDL below 130,History of tobacco use Take 1 Capsule by mouth in the morning. 90 Capsule 3 4 Active Omeprazole 40 MG Oral Capsule Delayed Release (PriLOSEC) Take 1 Capsule by mouth in the morning. 90 Capsule 3 4 Active Ezetimibe 10 MG Oral Tablet (Zetia)Indication s:Dyslipidemia, goal LDL below 130 TAKE 1 TABLET ONCE DAILY FOR CHOLESTEROL 90 Tablet 3 4 Active Xiidra 5 % Ophthalmic Solution (Lifitegrast) place 1 drop into both eyes twice a day 180 Each 1 04/15/2024 2:09 PM EDT 4 Active Furosemide 20 MG Oral Tablet (Lasix)Indication s:Edema, unspecified type One pill once daily as needed. 30 Tablet 11 4 Active DULoxetine HCl 30 MG Oral Capsule Delayed Release Particles (Cymbalta)Indicat ions:Moderate episode of recurrent major depressive disorder (HCC) Take 1 Capsule by mouth in the morning. Do not cut, crush or chew. 90 Capsule 3 4 Active Losartan Potassium 50 MG Oral Tablet (Cozaar) Take 1 Tablet by mouth in the morning and 1 Tablet before bedtime. 60 Tablet 11 4 Active Metoprolol Tartrate 25 MG Oral Tablet (Lopressor) Take 1 Tablet by mouth in the morning and 1 Tablet before bedtime. 60 Tablet 11 4 Active busPIRone HCl 15 MG Oral Tablet (Buspar)Indicatio ns:Depression with anxiety Take 1 Tablet by mouth in the morning and 1 Tablet at noon and 1 Tablet before bedtime. 90 Tablet 5 4 Active Escitalopram Oxalate 10 MG Oral Tablet (Lexapro) One pill once daily along with Lexapro 20 mg daily( Total dose of 30 mg daily) 90 Tablet 3 4 Active Escitalopram Oxalate 20 MG Oral Tablet (Lexapro)Indicati ons:Current episode of major depressive disorder without prior episode, unspecified depression episode severity Take 1 Tablet by mouth in the morning. 90 Tablet 3 4 Active Ondansetron HCl 4 MG Oral Tablet (Zofran)Indicatio ns:Nausea without vomiting TAKE 2 TABLETS 3 X A DAY NEEDED FOR NAUSEA 50 Tablet 1 5 Active Xiidra 5 % Ophthalmic Solution (Lifitegrast) Instill 1 drop into both eyes twice a day 180 Each 1 08/24/2024 7:01 AM EST 5 Active hydrOXYzine HCl 25 MG Oral TabletIndications :Anxiety state Take 1 Tablet by mouth 2 times a day as needed for Anxiety. 60 Tablet 5 Active LORazepam 0.5 MG Oral Tablet (Ativan)Indicatio ns:JAYLYN (generalized anxiety disorder) TAKE ONE TABLET BY MOUTH AT BEDTIME NEEDED FOR INSOMNIA 30 Tablet 5 Active oxyCODONE HCl 5 MG Oral Tablet (Oxy IR)Indications:Ch ronic upper back pain Take 1 Tablet by mouth every 8 hours as needed for Pain, Moderate. Continued script 90 Tablet 5 Active Famotidine 20 MG Oral Tablet (Pepcid)Indicatio ns:Gastroesophage al reflux disease without esophagitis Take 1 Tablet by mouth at bedtime. 90 Tablet 3 5 Active documented as of this encounter (statuses [...] mRNA, LNP-s, No Pre serve, 2-Dose Series (Phunware) 08/20/2020,07/30/2020 Hepatitis B, 20+ yrs 11/03/2002,06/05/2002,05/05 Pneumococcal Conjugate Vacc, 13 Valent (Prevnar) 09/13/2014 Pneumococcal Polysaccharide PPV23 (Pneumovax) 05/21/2006 Season Influenza, Quad, PF, Adjuvanted, 65+ Yrs, IM (FLUAD) 02/29/2020 Seasonal Influenza Vac., MDV , IM, 0.5 mL (Fluzone) 02/22/2015,03/07/2014,03/14/2013,03/07,04/24/2011,03/05/2010,04/19/2009 ,04/28/2007,05/21/2006,04/08/1999 Seasonal Influenza Virus Vac cine, Unspecified Formulation 04/16/1998 Seasonal Influenza, High Dos e, Trivalent, PF, [...] encounter Miscellaneous Notes * Telephone Encounter - Elle Mason OSA - 09/14/2024 10:42 AM EDT LMOM * Telephone Encounter - Edilia Kenyon MD - 09/14/2024 9:06 AM EDTSigned Prescriptions: Disp Refills Famotidine 20 MG Oral Tablet (Pepcid) 90 Tab*3 Sig: Take 1 Tablet by mouth at bedtime.Authorizing Provider: EDILIA KENYON * Telephone Encounter - Natalie Anderson OSA - 09/14/2024 7:43 AM EDT LMOM for pt to return phone call and schedule acute apt * Telephone Encounter - Jose Michael RN - 09/13/2024 6:27 PM EDT Called patient and informed her of Dr. Kenyon's previous message. She verbalized understanding of all information. Patient said she started taking the Omeprazole twice a day a couple of days ago and has not noticedmuch difference. Current medication list has Omeprazole at 40 mg once daily. Patient could not confirm the twice a day dose she is taking, but said she is taking whatever dose she has there. Please advise. Patient is agreeable to taking Pepcid at night, would like prescription sent to the pharmacy. Pharmacy confirmed and medication order pended for review and signature if agree. Scheduling: Please see Dr. Kenyon's previous message and schedule patient for appointment. Patient said she would only like to see Dr. Kenyon. * Telephone Encounter - Edilia Kenyon MD - 09/13/2024 4:43 PM EDT Sure. We can see her next available for acute. Can switch Omeprazole to 20 mg twice daily and if already taking twice then can add pepcid 20 mg daily at night. She may need repeat upper endoscopy. * Telephone Encounter - Jayda rKishna LPN - 09/13/2024 3:49 PM EDT Patient is concerned that her PCP is not aware of her situation with her ribs and fractures. She wanted to inform you that she is having acid reflux at night and over night to the point that it sits in her throat until morning and causes her to have a severe sore throat. She is currently taking Omeprazole, and would like to get into the office for an appointment with you. Please advise. Sending to scheduling for an appointment preferably with Dr. Kenyon. * Telephone Encounter - Celestina Winter OSA - 09/13/2024 1:24 PM EDT Pt got disconnected from a call with Shivani at the clinic nurse station Tried to warm transfer back but no answer at nurse line Can someone please reach out to pt? Thanks documented in this encounter Plan of Treatment Upcoming Encounters Date Type Department Care Team (Late st Contact Info) Description 09/22/2024 2:40 PM EDT Office Visit Nephrology, [facility] [address] [facility] [place] [address] Jordyn Santillan MD [address] [facility] [place] [address] 10/30/2024 10:00 AM EDT Office Visit Ophthalmology, [facility] [address] [place] [phone] Hector Lopez T, DO [address] [place] [address] 01/15/2025 3:30 PM EDT Office Visit Cardiology, [facility] [address] [place] [phone] Kvng Choudhary PA-C [address] [place] [address] 03/22/2025 1:40 PM EDT Office Visit General Internal Medicine [facility] [address] [place] [address] Edilia Kenyon MD [address] [place] [address] Health Maintenance Due Date Last Done Comments Adult Wellness Visit 2005 Zoster Vaccines (2 of 3) 07/23/2009 05/28/2009 COVID-19 Vaccine ( season) 2024 08/20/2020, 07/30/2020 *BISPHONATE OR OTHER ACCEPTABLE MEDICATION NEEDED FOR OSTEOPOROSIS (REFER TO SMARTSET #1146) 05/09/2024 Depression Monitoring 01/17/2025 01/18/2024 DXA Scan 04/21/2025 04/21/2023, 06/2022, 08/16/2019, Additional history exists CKD HGB USE SMARTSET 59374 07/20/202507/20, 07/20/2024, 06/23/2024, Additional history exists Albumin/Creatinine Ratio 08/31/20252 025, 05/06/2023, 04/09/2016, Additional history exists CKD PHOS USE SMARTSET 06599 08/31/202508/19, 05/04/2023, 12/17/2021, Additional history exists HbA1c 08/31/2025 08/31/2024, 08/19, 03/17/2021, Additional history exists DTap/Tdap Vaccines (3 - Td or Tdap) 05/06/2033 05/06/2023, 09/29/2011 Hepatitis B Vaccine Completed 11/03/2002, 06/05/2002, 05/05/2002 Pneumococcal Vaccine: 50+ Years Completed 09/13/2014, 05/21/2006 Influenza Vaccine (FLU shot) Completed , 03/19/2023, 02/26/2022, Additional history exists VITAMIN D LEVEL ONCE IN A LIFETIME-USE SMARTSET# 88064 Completed 07/20/2024, 05/04/2023, 12/17/2021, Additional history exists [...] pain on left side Chest pain, unspecified Gastroesophageal reflux disease without esophagitis- Primary Esophageal reflux documented in this encounter Advance Directives Documents on File Type Date Recorded Patient Artist Model Expl anation Advance Directives and Livin g Will 12/25/2018 LIVING WILL Power of Harness Cleaner 12/25/2018 POWER OF A TTORNEY Care Teams Professor Of Biology Relationship Specialty Start Date End Date Edilia Kenyon MD [address] [place] [address] PCP - General Internal Medicine 07/28/19 documented as of this encounter
--- OUTSIDE RECORDS SUMMARY | 2024-09-15 08:53 | External Medical Summary | Summary of Care ---
Author Name Unknown Organization [facility] Address [address] [place] [facility] [place] [address] Phone [phone] Care Team Providers Care Keyboard Instrument Tuner Name Role Phone Edilia Kenyon MD Primary Care Provider + Encounter Details Date Type Department Care Team (Late st Contact Info) Description 09/13/2024 Refill General Internal Medicine [facility] [address] [place] [address] Edilia Kenyon MD [address] [place] [phone] Gastroesophageal reflux disease without esophagitis* Allergies Active [...] 50 MCG/ACT Nasal Suspension (Flonase) Administer 1 [place] into nostril in the morning and 1 [place] before bedtime. 15.8 mL 3 3 Active [...] upper endoscopy. * Telephone Encounter - Jayda Krishna LPN - 09/13/2024 3:49 PM EDT Patient [...] 09/22/2024 2:40 PM EDT Office Visit Nephrology, [facility] [address] [place] [address] Jordyn Santillan MD [address] [place] [address] 10/30/2024 10:00 AM EDT Office Visit Ophthalmology, [facility] [address] [place] [address] Hector Lopez, DO [address] [place] [address] 01/15/2025 3:30 PM EDT Office Visit Cardiology, [facility] [address] [place] [phone] Kvng Choudhary, PA-C [address] [facility] [place] [address] 03/22/2025 1:40 PM EDT Office Visit General Internal Medicine [facility] [place] [address] [place] [address] Edilia Kenyon MD [address] [facility] [place] [address] Health Maintenance Due Date Last Done Comments Adult Wellness Visit 2005 Zoster Vaccines (2 of 3) 07/23/2009 05/28/2009 COVID-19 Vaccine ( season) 2024 08/20/2020, 07/30/2020 *BISPHONATE OR OTHER ACCEPTABLE MEDICATION NEEDED FOR OSTEOPOROSIS (REFER TO SMARTSET #1146) 05/09/2024 Depression Monitoring 01/17/2025 01/18/2024 DXA Scan 04/21/2025 04/21/2023, 1106/2022, 08/16/2019, Additional history exists CKD HGB USE SMARTSET 22999 07/20/202507/20, 07/20/2024, 06/23/2024, Additional history exists Albumin/Creatinine Ratio 08/31/20252 025, 05/06/2023, 04/09/2016, Additional history exists CKD PHOS USE SMARTSET 26169 08/31/202508/19, 05/04/2023, 12/17/2021, Additional history exists HbA1c 08/31/2025 08/31/2024, 08/19, 03/17/2021, Additional history exists DTap/Tdap Vaccines (3 - Td or Tdap) 05/06/2033 05/06/2023, 09/29/2011 Hepatitis B Vaccine Completed 11/03/2002, 06/05/2002, 05/05/2002 Pneumococcal Vaccine: 50+ Years Completed 09/13/2014, 05/21/2006 Influenza Vaccine (FLU shot) Completed , 03/19/2023, 02/26/2022, Additional history exists VITAMIN D LEVEL ONCE IN A LIFETIME-USE SMARTSET# 06517 Completed 07/20/2024, 05/04/2023, 12/17/2021, Additional history exists [...] Documents on File Type Date Recorded Patient Worship Director Expl anation Advance Directives and Livin g Will 12/25/2018 LIVING WILL Power of Care Management Coordinator 12/25/2018 POWER OF A TTORNEY Care Teams Keyboard Instrument Tuner Relationship Specialty Start Date End Date Edilia Kenyon MD [address] [place] [address] PCP - General Internal Medicine 07/28/19 documented as of this encounter
--- OUTSIDE RECORDS SUMMARY | 2024-09-15 08:53 | External Medical Summary | Summary of Care ---
Author Name Unknown Organization [facility] Address [address] [facility] [address] Phone [phone] Care Team Providers Care Service Mechanic Name Role Phone Edilia Kenyon MD Primary Care Provider + Reason for Visit * Reason Onset Date Comments Medication Refill 09/13/2024 Encounter Details Date Type Department Care Team (Late st Contact Info) Description 09/13/2024 Refill General Internal Medicine [facility] 200 [facility] [place] [id number] Edilia Kenyon MD 200 [place] [address] JAYLYN (generalized anxiety disorder); Chronic upper back [...] 50 MCG/ACT Nasal Suspension (Flonase) Administer 1 [place] into nostril in the morning and 1 [place] before bedtime. 15.8 mL 3 3 Active [...] both eyes twice a day 180 Each 04/15/2024 2:09 PM EDT 4 Active Furosemide [...] Moderate. Continued script 90 Tablet 5 Active documented as of this encounter [...] mRNA, LNP-s, No Pre serve, 2-Dose Series ([employer]) 08/20/2020,07/30/2020 Pneumococcal Conjugate Vacc, 13 Valent (Prevnar) [...] encounter Miscellaneous Notes * Telephone Encounter - Chichi Swanson RPh - 09/13/2024 6:14 PM EDT Refused Prescriptions: Disp Refills LORazepam 0.5 MG Oral Tablet (Ativan) 30 Tab*0 Sig: TAKE ONE TABLET BY MOUTH AT BEDTIME NEEDED FOR INSOMNIARefused By: CHICHI SWANSON for Refusal: Duplicate Request oxyCODONE HCl 5 MG Oral Tablet (Oxy IR) 90 Tab*0 Sig: Take 1 Tablet by mouth every8 hours as needed for Pain, Moderate. Continued scriptRefused By: CHICHI SWANSON for Refusal: Duplicate Request documented in this encounter Plan of Treatment Upcoming Encounters Date Type Department Care Team (Late st Contact Info) Description 09/22/2024 2:40 PM EDT Office Visit Nephrology, [facility] [address] [place], [place] [address] Jordyn Santillan MD [address] [place] [address] 10/30/2024 10:00 AM EDT Office Visit Ophthalmology, [facility] [address] [place] [address] Hector Lopez, DO [address] [place] [address] 01/15/2025 3:30 PM EDT Office Visit Cardiology, [facility] [address] [place] [address] Kvng Choudhary PAJaclyn [address] [facility] [place] [address] 03/22/2025 1:40 PM EDT Office Visit General Internal Medicine [facility] [address] [place] [address] Edilia Kenyon MD [address] [facility] [address] [place] [address] Health Maintenance Due Date Last Done Comments Adult Wellness Visit 2005 Zoster Vaccines (2 of 3) 07/23/2009 05/28/2009 COVID-19 Vaccine ( season) 2024 08/20/2020, 07/30/2020 *BISPHONATE OR OTHER ACCEPTABLE MEDICATION NEEDED FOR OSTEOPOROSIS (REFER TO SMARTSET #1146) 05/09/2024 Depression Monitoring 01/17/2025 01/18/2024 DXA Scan 04/21/2025 04/21/2023, 1106/2022, 08/16/2019, Additional history exists CKD HGB USE SMARTSET 33006 07/20/202507/20, 07/20/2024, 06/23/2024, Additional history exists Albumin/Creatinine Ratio 08/31/202508/31/2 025, 05/06/2023, 04/09/2016, Additional history exists CKD PHOS USE SMARTSET 95455 08/31/202508/19, 05/04/2023, 12/17/2021, Additional history exists HbA1c 08/31/2025 08/31/2024, 08/19, 03/17/2021, Additional history exists DTap/Tdap Vaccines (3 - Td or Tdap) 05/06/2033 05/06/2023, 09/29/2011 Hepatitis B Vaccine Completed 11/03/2002, 06/05/2002, 05/05/2002 Pneumococcal Vaccine: 50+ Years Completed 09/13/2014, 05/21/2006 Influenza Vaccine (FLU shot) Completed , 03/19/2023, 02/26/2022, Additional history exists VITAMIN D LEVEL ONCE IN A LIFETIME-USE SMARTSET# 82119 Completed 07/20/2024, 05/04/2023, 12/17/2021, Additional history exists [...] Documents on File Type Date Recorded Patient Manager Money Expl anation Advance Directives and Livin g Will 12/25/2018 LIVING WILL Power of Gravity Meter Observer 12/25/2018 POWER OF A TTORNEY Care Teams Service Mechanic Relationship Specialty Start Date End Date Edilia Kenyon MD 200 [place] [address] PCP - General Internal Medicine 07/28/19 documented as of this encounter
--- OUTSIDE RECORDS SUMMARY | 2024-09-15 08:54 | External Medical Summary | Summary of Care ---
Author Name Unknown Organization [facility] Address [address] [place] [facility] [place] [place] [address] Phone [phone] Care Team Providers Care Consumer Recruiter Name Role Phone Edilia Kenyon MD Primary Care Provider + Reason for Visit * Reason Comments Outpatient Testing * Precert (Within 10 days (routine)) - Authorized Specialty Diagnoses / Procedures Referred By Contac t Referred To Contact Laboratory Diagnoses High serum ferritin Procedures HFE MUTATION ANALYSIS, PCR Edilia Kenyon MD [address] [facility] [place] [address] Phone: tel: fax: Referral ID Status Reason Start Date Expiration Date V isits Requested Visits Authorized [id number] Authorized 08/28/[phone] Encounter Details Date Type Department Care Team (Late st Contact Info) Description 08/31/2024 12:00 PM EDT Laboratory Laboratory State Scott Anand 200 [facility] [place] [address] Tamy Luciano [facility] [address] [place] [address] Prediabetes; HTN, goal below 140/90; Opioid dependence, uncomplicated (HCC); High serum ferritin; 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 Active Fluticasone Propionate 50 MCG/ACT Nasal Suspension (Flonase) Administer 1 [place] into nostril in the morning and 1 [place] before bedtime. 15.8 mL 3 3 Active [...] the morning. 90 Tablet 3 4 Active hydrOXYzine HCl 25 MG Oral TabletIndications :Anxiety state Take 1 Tablet by mouth 2 times a day as needed for Anxiety. 60 Tablet 5 Active Ondansetron HCl 4 MG Oral Tablet (Zofran)Indicatio ns:Nausea without vomiting TAKE 2 TABLETS 3 X A DAY NEEDED FOR NAUSEA 50 Tablet 1 5 Active LORazepam 0.5 MG Oral Tablet (Ativan)Indicatio ns:JAYLYN (generalized anxiety disorder) TAKE ONE TABLET BY MOUTH AT BEDTIME NEEDED FOR INSOMNIA 30 Tablet 5 Active oxyCODONE HCl 5 MG Oral Tablet (Oxy IR)Indications:Ch ronic upper back pain Take 1 Tablet by mouth every 8 hours as needed for Pain, Moderate. Continued script 90 Tablet 5 Active Xiidra 5 % Ophthalmic Solution (Lifitegrast) Instill 1 drop into both eyes twice a day 180 Each 1 08/24/2024 7:01 AM EST 5 Active documented as of this encounter (statuses as of 08/31/2024) Active Problems Problem Noted Date Diagnosed Date [...] as of this encounter (statuses as of 08/31/2024) Resolved Problems Problem Noted Date Diagnosed Date [...] as of this encounter (statuses as of 08/31/2024) Immunizations Name Administration Dates Next Due COVID-19 [...] 01/18/2024 Does the household have a re lar source of income? (Household - for ages [...] PM EDT documented as of this encounter Plan of Treatment Upcoming Encounters Date Type Department Care Team (Late st Contact Info) Description 10/30/2024 10:00 AM EDT [facility] [address] [facility] [place] [address] Hector Lopez, DO 16 [facility] [place] [address] 01/15/2025 3:30 PM EDT Office Visit Cardiology, [facility] [address] [place] [address] Kvng Choudhary PA-C [address] [place] [address] 03/22/2025 1:40 PM EDT Office Visit General Internal Medicine [facility] 200 [facility] [place] [address] Edilia Kenyon MD 200 [facility] [place] [address] 04/20/2025 1:40 PM EDT Office Visit Nephrology, [facility] 200 [facility] [place] [address] Jordyn Santillan MD 200 [facility] [place] [address] Pending Results Name Type Priority Associated Diagnoses Date /Time HEMOGLOBIN A1C Lab Routine Prediabetes 08/31/2024 11:52 AM EDT ALBUMIN / CREATININE RATIO, URINE Lab Routine HTN, goal below 140/90 08/31/2024 11:55 AM EDT PAIN MANAGEMENT DRUG PANEL, URINE W/ INTERPRETATION Lab Routine Opioid dependence, uncomplicated (HCC) 08/31/2024 11:55 AM EDT FERRITIN Lab Routine High serum ferritin 08/31/2024 11:52 AM EDT IRON SCREEN, INCLUDING TIBC Lab Routine High serum ferritin 08/31/2024 11:52 AM EDT HFE MUTATION ANALYSIS, PCR Lab Routine High serum ferritin 08/31/2024 11:52 AM EDT EXTRA URINE ALIQUOT Lab Routine Opioid dependence, uncomplicated (HCC) 08/31/2024 11:55 AM EDT Health Maintenance Due Date Last Done Comments Adult Wellness Visit 2005 Zoster Vaccines (2 of 3) 07/23/2009 05/28/2009 HbA1c 09/01/2023 08/31/2022, 02/20, 09/04/2019 COVID-19 Vaccine ( season) 2024 08/20/2020, 07/30/2020 Albumin/Creatinine Ratio 05/06/2024 023, 04/09/2016, 02/20/2015 *BISPHONATE OR OTHER ACCEPTABLE MEDICATION NEEDED FOR OSTEOPOROSIS (REFER TO SMARTSET #1146) 05/09/2024 Depression Monitoring 01/17/2025 01/18/2024 DXA Scan 04/21/2025 04/21/2023, 1106/2022, 08/16/2019, Additional history exists CKD HGB USE SMARTSET 04583 07/20/202507/20, 07/20/2024, 06/23/2024, Additional history exists CKD PHOS USE SMARTSET 03413 08/31/202508/19, 05/04/2023, 12/17/2021, Additional history exists DTap/Tdap Vaccines (3 - Td or Tdap) 05/06/2033 05/06/2023, 09/29/2011 Hepatitis B Vaccine Completed 11/03/2002, 06/05/2002, 05/05/2002 Pneumococcal Vaccine: 50+ Years Completed 09/13/2014, 05/21/2006 Influenza Vaccine (FLU shot) Completed , 03/19/2023, 02/26/2022, Additional history exists VITAMIN D LEVEL ONCE IN A LIFETIME-USE SMARTSET# 80431 Completed 07/20/2024, 05/04/2023, 12/17/2021, Additional history exists [...] pain on left side Chest pain, unspecified Prediabetes Other abnormal glucose HTN, goal below 140/90 Unspecified essential hypertension Opioid dependence, uncomplicated (HCC) High serum ferritin 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
--- OUTSIDE RECORDS SUMMARY | 2024-09-15 08:54 | External Medical Summary | Summary of Care ---
Author Name Unknown Organization [facility] Address [address] [place] [place] [address] Phone [phone] Care Team Providers Care Esl Professor Name Role Phone Edilia Kenyon MD Primary Care Provider + Reason for Visit * Reason Comments Outpatient Testing * Precert (Within 10 days (routine)) - Authorized Specialty Diagnoses / Procedures Referred By Contac t Referred To Contact Laboratory Diagnoses High serum ferritin Procedures HFE MUTATION ANALYSIS, PCR Edilia Kenyon MD 200 [facility] [place] [address] Phone: tel: fax: Referral ID Status Reason Start Date Expiration Date V isits Requested Visits Authorized [id number] Authorized 08/28/[phone] Encounter Details Date Type Department Care Team (Late st Contact Info) Description 08/31/2024 12:00 PM EDT Laboratory Laboratory State Scott Anand [facility] [place] [address] Tamy Luciano [facility] [address] [place] [address] Prediabetes; HTN, goal below 140/90; Opioid dependence, [...] as of this encounter (statuses as of 09/05/2024) Medications HM Vitamin D3 100 MCG (4000 UT) Oral Capsule (Cholecalciferol) Take by mouth . Active Fluticasone Propionate 50 MCG/ACT Nasal Suspension (Flonase) Administer 1 [place] into nostril in the morning and 1 [place] before bedtime. 15.8 mL 3 3 Active [...] as of this encounter (statuses as of 09/05/2024) Active Problems Problem Noted Date Diagnosed Date [...] as of this encounter (statuses as of 09/05/2024) Resolved Problems Problem Noted Date Diagnosed Date [...] as of this encounter (statuses as of 09/05/2024) Immunizations Name Administration Dates Next Due COVID-19 [...] as of this encounter Miscellaneous Notes * Result Encounter Note - Libby Wasserman PA-C - 09/01/2024 8:37 AM EDT A1c and urine albumin testing noted to be stable. documented in this encounter Plan of Treatment Upcoming Encounters Date Type Department Care Team (Late st Contact Info) Description 09/22/2024 2:40 PM EDT Office Visit Nephrology, [facility] 200 [facility] [place] [address] Jordyn Santillan MD 200 [facility] [place] [address] 10/30/2024 10:00 AM EDT Office Visit Ophthalmology, [facility] [address] [place] [address] Hector Lopez T, DO 16 [place] [address] 01/15/2025 3:30 PM EDT Office Visit Cardiology, [facility] 132 [place] [address] Kvng Choudhary PA-C 132 [place] [address] 03/22/2025 1:40 PM EDT Office Visit General Internal Medicine [facility] [address] [facility] [place] [address] Edilia Kenyon MD 200 [facility] [place] [address] Pending Results Name Type Priority Associated Diagnoses Date /Time PAIN MANAGEMENT DRUG PANEL, URINE W/ INTERPRETATION Lab Routine Opioid dependence, uncomplicated (HCC) 08/31/2024 11:55 AM EDT HFE MUTATION ANALYSIS, PCR Lab Routine High serum ferritin 08/31/2024 11:51 AM EDT BENZODIAZEPINES, URINE CONFIRMATION Lab Routine Opioid dependence, uncomplicated (HCC) 08/31/2024 11:55 AM EDT Health Maintenance Due Date Last Done Comments Adult Wellness Visit 2005 Zoster Vaccines (2 of 3) 07/23/2009 05/28/2009 COVID-19 Vaccine ( season) 2024 08/20/2020, 07/30/2020 *BISPHONATE OR OTHER ACCEPTABLE MEDICATION NEEDED FOR OSTEOPOROSIS (REFER TO SMARTSET #1146) 05/09/2024 Depression Monitoring 01/17/2025 01/18/2024 DXA Scan 04/21/2025 04/21/2023, 11/0 06/2022, 08/16/2019, Additional history exists CKD HGB USE SMARTSET 37281 07/20/202507/20, 07/20/2024, 06/23/2024, Additional history exists Albumin/Creatinine Ratio 08/31/2025 025, 05/06/2023, 04/09/2016, Additional history exists CKD PHOS USE SMARTSET 67453 08/31/202508/19, 05/04/2023, 12/17/2021, Additional history exists HbA1c 08/31/2025 08/31/2024, 08/19, 03/17/2021, Additional history exists DTap/Tdap Vaccines (3 - Td or Tdap) 05/06/2033 05/06/2023, 09/29/2011 Hepatitis B Vaccine Completed 11/03/2002, 06/05/2002, 05/05/2002 Pneumococcal Vaccine: 50+ Years Completed 09/13/2014, 05/21/2006 Influenza Vaccine (FLU shot) Completed , 03/19/2023, 02/26/2022, Additional history exists VITAMIN D LEVEL ONCE IN A LIFETIME-USE SMARTSET# 47052 Completed 07/20/2024, 05/04/2023, 12/17/2021, Additional history exists [...] Not on filedocumented as of this encounter Procedures Procedure Name Priority Date/Time Associated Diagnosis Comments EXTRA URINE ALIQUOT Routine 08/31/2024 1 1:55 AM EDT Opioid dependence, uncomplicated (HCC) PAIN MANAGEMENT DRUG PANEL, URINE W/ INTERPRETATION Routine 08/31/2024 11:55 AM EDT Opioid dependence, uncomplicated (HCC) ALBUMIN / CREATININE RATIO, URINE Routine 08/31/2024 11:55 AM EDT HTN, goal below 140/90 HEMOGLOBIN A1C Routine 08/31/2024 11:52 AM EDT Prediabetes IRON SCREEN, INCLUDING TIBC Routine 08/31/2024 11:52 AM EDT High serum ferritin FERRITIN Routine 08/31/2024 11:52 AM EDT High serum ferritin documented in this encounter Results * EXTRA URINE ALIQUOT (08/31/2024 11:55 AM EDT) Urine Urine specimen obtained by clean catch procedure / Unknown Non-blood Collection / Unknown 08/31/2024 11:55 AM EDT 08/31/2024 11:55 AM EDT Edilia Kenyon MD LAB URINE ORDERABLES Fin al Result Performing Organization Address City/[facility] [address]/ZIP Co de Phone Number LABORATORY [facility] [address] [place] [address] * ALBUMIN / CREATININE RATIO, URINE (08/31/2024 11:55 AM EDT) Pathologist [facility] Albumin, Random Urine <1.20 mg/dL 08/31/2024 6:59 PM EDT LAB[facility]ATORY [facility] Creatinine, Random Urine 98 mg/dL 08/31/2024 6:59 PM EDT LAB[facility]ATORY [facility] Albumin / Creatinine Ratio, Urine <12 <30 mg/g Creat 08/31/2024 6:59 PM EDT LAB[facility]ORY [facility] Urine Urine specimen obtained by clean catch procedure / Unknown Non-blood Collection / Unknown 08/31/2024 11:55 AM EDT 08/31/2024 11:55 AM EDT Narrative LABORATORY C - 08/31/2024 6:59 PM EDT Normal: <30 mg/g creatinine High: 30-300 mg/g creatinine Very High: >300 mg/g creatinine Nephrotic: >2200 mg/g creatinine Edilia Kenyon MD LAB URINE ORDERABLES Fin al Result LAB[facility]ORY [facility] [address] [place] [address] * IRON SCREEN, INCLUDING TIBC (08/31/2024 11:52 AM EDT) Pathologist [facility] Iron 87 33 - 151 ug/dL 08/31/2024 7:26 PM EDT LABORATORY [facility] Iron Binding Capacity 311 250 - 425 ug/dL 08/31/2024 7:26 PM EDT LAB[facility]ATORY [facility] Transferrin Saturation Percent 28 15 - 55 % 08/31/2024 7:26 PM EDT LAB[facility]ORY [facility] Blood Venous blood specimen / Unknown Venipuncture / Unknown 08/31/2024 11:52 AM EDT 08/31/2024 11:52 AM EDT Edilia Kenyon MD LAB BLOOD ORDERABLES Fin al Result Performing Organization Address [facility] [address]/[facility] Co de Phone Number LAB[facility]ATORY [facility] [address] [place] [address] * (ABNORMAL) FERRITIN (08/31/2024 11:52 AM EDT) Pathologist [facility] Ferritin 532(H) 13 - 150 ng/mL 08/31/2024 8:08 PM EDT LAB[facility]ORY [facility] Comment:Postmenopausal women have higher ferritin levels than pre-menopausal women. The above reference interval is based on pre-menopausal women. Blood Venous blood specimen / Unknown Venipuncture / Unknown 08/31/2024 11:52 AM EDT 08/31/2024 11:52 AM EDT Edilia Kenyon MD LAB BLOOD ORDERABLES Fin al Result Performing Organization Address City/[facility] [address]/ZIP Co de Phone Number LAB[facility]ATORY [facility] [address] [place] [address] * (ABNORMAL) HEMOGLOBIN A1C (08/31/2024 11:52 AM EDT) Pathologist [facility] Hemoglobin A1C 5.8(H) 4.0 - 5.6 % 08/31/2024 7:26 PM EDT LAB[facility]ATORY [facility] Comment:The use of HbA1c to monitor glycemic status is based on normal hemoglobin and HbA composition. This test should not be used in patients with abnormal hemoglobin that affects the half life of the red blood cell or the in vivo glycation rates. Estimated Average Glucose 120 <126 mg/dL 08/31/2024 7:26 PM EDT LABORATORY [facility] Blood Venous blood specimen / Unknown Venipuncture / Unknown 08/31/2024 11:52 AM EDT 08/31/2024 11:52 AM EDT Edilia Kenyon MD LAB BLOOD ORDERABLES Fin al Result [facility] [address] [place] [address] documented in this encounter Visit Diagnoses Diagnosis Elevated ferritin [...] Documents on File Type Date Recorded Patient Isotope Technician Expl anation Advance Directives and Livin g Will 12/25/2018 LIVING WILL Power of Typist 12/25/2018 POWER OF A TTORNEY Care Teams Esl Professor Relationship Specialty Start Date End Date Edilia Kenyon MD [address] [facility] [place] [address] PCP - General Internal Medicine 07/28/19 documented as of this encounter
--- OUTSIDE RECORDS SUMMARY | 2024-09-15 08:54 | External Medical Summary | Summary of Care ---
Author Name Unknown Organization [facility] Address [address] [place] [address] Phone [phone] Care Team Providers Care Cinder Man Name Role Phone Edilia Kenyon MD Primary Care Provider + Reason for Visit * Reason Onset Date Comments Advice 08/31/2024 Encounter Details Date Type Department Care Team (Late st Contact Info) Description 08/31/2024 Telephone General Internal Medicine [facility] [address] [facility] [place] [address] Edilia Kenyon MD [address] [facility] [place] [address] Advice Allergies Active Allergy Reactions Criticality Noted [...] as of this encounter (statuses as of 09/01/2024) Medications HM Vitamin D3 100 MCG (4000 UT) Oral Capsule (Cholecalciferol) Take by mouth . Active Fluticasone Propionate 50 MCG/ACT Nasal Suspension (Flonase) Administer 1 [place] into nostril in the morning and 1 [place] before bedtime. 15.8 mL 3 3 Active [...] as of this encounter (statuses as of 09/01/2024) Active Problems Problem Noted Date Diagnosed Date [...] as of this encounter (statuses as of 09/01/2024) Resolved Problems Problem Noted Date Diagnosed Date [...] as of this encounter (statuses as of 09/01/2024) Immunizations Name Administration Dates Next Due COVID-19 mRNA, LNP-s, No Pre serve, 2-Dose Series (Global Active) 08/20/2020,07/30/2020 Pneumococcal Conjugate Vacc, 13 Valent (Prevnar) [...] Telephone Encounter - Libby Wasserman PA-C - 09/01/2024 4:03 PM EDT Noted--aware she did not fall. * Telephone Encounter - Jose Michael RN - 09/01/2024 3:21 PM EDT Called patient and informed her of Libby's previous message. She verbalized understanding of all information. Patient said she does not think she will go to the ER. Patient said she wanted it noted that she did not fall. She said she does not want this in her chart. I said I would pass her message along. FYI. * Telephone Encounter - Libby Wasserman PA-C - 09/01/2024 3:07 PM EDT If more than 3 fractures are present in a high risk patient such as herself (age, bone density, frailty) it is recommended for pt to be admitted to hospital for management and monitoring. If she would fall or injure herself again, this could cause significant complications for the pt. If the pt refuses to go, that is her choice. I'm simply following recommended guidelines for this type of injury. * Telephone Encounter - Anjelica Richards LPN - 09/01/2024 2:45 PM EDT Patient is calling. She doesn't understand why she would need to go to the ER? If they are not displaced, what is the ER going to do? If she has to go, she won't go till tomorrow. Please advise. * Telephone Encounter - Amy Green OSA - 09/01/2024 2:36 PM EDT Reason for patient's call: Pt calling in with further questions. Caller was transferred to [facility] at the nurse line. * Telephone Encounter - Jayde Walton LPN - 08/31/2024 3:31 PM EDT Patient is aware and verbalizes understanding, will comply. * Telephone Encounter - Angelica Joseph OSA - 08/31/2024 3:28 PM EDT Reason for patient's call: Patient is returning a call that she got from a nurse in regards to testresults. Caller was transferred to [facility] at the nurse line. * Telephone Encounter - Anjelica Richards LPN - 08/31/2024 2:12 PM EDT ----- Message from Libby Wasserman sent at 08/31/2024 1:46 PM EDT ----- Pt noted to have multiple rib fractures of L 6th-9th ribs. Non displaced. Given her age and the number of rib fractures, would recommend for pt to go to the ER for acute management and monitoring. documented in this encounter Plan of Treatment Upcoming Encounters Date Type Department Care Team (Late st Contact Info) Description 10/30/2024 10:00 AM EDT Office Visit Ophthalmology, [facility] [address] [place] [address] Hector Lopez, DO [address] [place] [address] 01/15/2025 3:30 PM EDT Office Visit Cardiology, [facility] [address] [facility] [place] [address] Kvng Choudhary PA-C 132 [place] [address] 03/22/2025 1:40 PM EDT Office Visit General Internal Medicine [facility] [address] [place] [address] Edilia Kenyon MD [address] [place] [address] 04/20/2025 1:40 PM EDT Office Visit Nephrology, [facility] [address] [place] [address] Jordyn Santillan MD [address] [place] [address] Health Maintenance Due Date Last Done Comments Adult Wellness Visit 2005 Zoster Vaccines (2 of 3) 07/23/2009 05/28/2009 COVID-19 Vaccine ( season) 2024 08/20/2020, 07/30/2020 *BISPHONATE OR OTHER ACCEPTABLE MEDICATION NEEDED FOR OSTEOPOROSIS (REFER TO SMARTSET #1146) 05/09/2024 Depression Monitoring 01/17/2025 01/18/2024 DXA Scan 04/21/2025 04/21/2023, 06/2022, 08/16/2019, Additional history exists CKD HGB USE SMARTSET 51563 07/20/202507/20, 07/20/2024, 06/23/2024, Additional history exists Albumin/Creatinine Ratio 08/31/20252 025, 05/06/2023, 04/09/2016, Additional history exists CKD PHOS USE SMARTSET 60536 08/31/202508/19, 05/04/2023, 12/17/2021, Additional history exists HbA1c 08/31/2025 08/31/2024, 08/19, 03/17/2021, Additional history exists DTap/Tdap Vaccines (3 - Td or Tdap) 05/06/2033 05/06/2023, 09/29/2011 Hepatitis B Vaccine Completed 11/03/2002, 06/05/2002, 05/05/2002 Pneumococcal Vaccine: 50+ Years Completed 09/13/2014, 05/21/2006 Influenza Vaccine (FLU shot) Completed , 03/19/2023, 02/26/2022, Additional history exists VITAMIN D LEVEL ONCE IN A LIFETIME-USE SMARTSET# 79001 Completed 07/20/2024, 05/04/2023, 12/17/2021, Additional history exists [...] Documents on File Type Date Recorded 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
--- OUTSIDE RECORDS SUMMARY | 2024-09-15 08:55 | External Medical Summary ---
Author Name Unknown Address Unknown Organization [id number]:[facility] [place] [address] [facility] [address] [facility] [address] Laboratory Report Ordering Provider Test Date Status DEVANTE JUAREZ 08/31/2024 11:52:15 Final Observation Date Value Abnormality Reference (Units ) Status Ferritin 08/31/2024 11:52:15 532 Above high normal 13 -150 (ng/mL) Final Postmenopausal women have hi gher ferritin levels than pre-menopausal women. The above reference interval is based on pre-menopausal women. Performing Location [facility] [place] [facility] [place] [address]
--- OUTSIDE RECORDS SUMMARY | 2024-09-15 08:55 | External Medical Summary ---
Author Name Unknown Address Unknown Organization [id number]:[facility] [place] [address] [facility] [place] [address] Laboratory Report Ordering Provider Test Date Status DEVANTE JUAREZ 08/31/2024 11:55:20 Final Drugs that require complianc e testing:

Opioids:
Oxycodone: Quantity one pill Date/Time of last Dose 2 days back.

Benzodiazepines
Lorazepam: Quantity pne pill Date/Time of last Dose last night

Cutoff Concentrations:
Drug Level
Amphetamines 500 ng/mL
Benzodiazepines 100 ng/mL
Cannabinoids 50 ng/mL
Cocaine Metabolite 150 ng/mL
Fentanyl 1 ng/mL
Hydrocodone / Hydromorphone 300 ng/mL
Methadone Metabolite 100 ng/mL
Morphine / Codeine 300 ng/mL
Oxycodone / Oxymorphone 100 ng/mL

Screening results are presumptive and can only be used for medical purposes. Confirmatory testing is available upon request. Observation Date Value Abnormality Reference (Units) Status COMPLIANCE INTERPRETATION 08/31/2024 11:55:20 Based on the medication information provided: Final COMPLIANCE INTERPRETATION 08/31/2024 11:55:20 The positive oxycodone screening result is CONSISTENT with oxycodone use. Confirmatory testing is available upon request. Final COMPLIANCE INTERPRETATION 08/31/2024 11:55:20 The presence of lorazepam is CONSISTENT with lorazepam use. Final Changed Report: Previously r eported on 09/01/2024 at 1345 EDT. See Results History in EPIC for previous versions of the report. Amphetamines, Urine screen 08/31/2024 11:55:20 Negative Negative Final Benzodiazepines, Urine screen 08/31/2024 11:55:20 Refer to confirmation results Abnormal Negative Final Cannabinoids, Urine screen 08/31/2024 11:55:20 Negative Negative Final Cocaine Metabolite, Urine screen 08/31/2024 11:55:20 Negative Negative Final fentaNYL [Presence] in Urine by Screen method 08/31/2024 11:55:20 Negative Negative Final HYDROcodone [Presence] in Urine by Screen method 08/31/2024 11:55:20 Negative Negative Final 8-Pucvkfpomx-0,5-Dimeth yl-3,3-Diphenylpyrrolid ine (EDDP) [Presence] in Urine 08/31/2024 11:55:20 Negative Negative Final Opiates, Urine screen 08/31/2024 11:55:20 Negative Negative Final oxyCODONE [Presence] in Urine by Screen method 08/31/2024 11:55:20 Positive Abnormal Negative Final FORENSIC VALID INTERPRETATION 08/31/2024 11:55:20 Normal Final Creatinine, Urine 08/31/2024 11:55:20 100 (mg/dL) Final Performing Location [facility] [place] [facility] [address] [facility] [address]
--- OUTSIDE RECORDS SUMMARY | 2024-09-15 08:55 | External Medical Summary | Summary of Care ---
Author Name Unknown Organization [facility] Address [address] [place] [address] Phone [phone] Care Team Providers Care Extractor Tender Raw Stock Name Role Phone Edilia Kenyon MD Primary Care Provider + Reason for Referral * Precert (Within 10 days (routine)) - Authorized Specialty Diagnoses / Procedures Referred By Contac t Referred To Contact Laboratory Diagnoses High serum ferritin Procedures HFE MUTATION ANALYSIS, PCR Edilia Kenyon MD [address] [place] [address] Phone: tel: fax: Referral ID Status Reason Start Date Expiration Date V isits Requested Visits Authorized [id number] Authorized 08/28/2024 [id number] Encounter Details Date Type Department Care Team (Late st Contact Info) Description 08/28/2024 Orders Only Laboratory [facility] [address] [place] [phone] Edilia Kenyon MD [address] [place] [address] High serum ferritin* Allergies Active Allergy Reactions Criticality Noted Date [...] as of this encounter (statuses as of 08/28/2024) Medications HM Vitamin D3 100 MCG (4000 UT) Oral Capsule (Cholecalciferol) Take by mouth . Active Fluticasone Propionate 50 MCG/ACT Nasal Suspension (Flonase) Administer 1 [place] into nostril in the morning and 1 [place] before bedtime. 15.8 mL 3 3 Active Additional Information Patient not taking.Reported on 01/04/2024 Azelastine HCl 0.1 % Nasal Solution (Astelin) [...] as of this encounter (statuses as of 08/28/2024) Active Problems Problem Noted Date Diagnosed Date Opioid dependence, uncomplicated 07/20/2024 Primary osteoarthritis involving multiple joints 04/13/2024 Chronic bilateral low back pain with left-sided sciatica 04/13/2024 Prediabetes 09/28/2022 Overview: Per Prediabetes protocol Other [...] reflux disease 07/13/2018 Peripheral vascular disease 11/20/2016 Overview (03/22/2017): ICD-10 update of inactive term History of tobacco use 10/20/2010 Dyslipidemia, goal LDL below 130 03/05/2010 Vitamin D deficiency 01/02/2010 Overview (01/02/2010): 25 [place] Vitamin D of 17 ng/ml in 2007 Hypertrophic cardiomyopathy 12/17/2006 Pulmonary arterial hypertension documented as of this encounter (statuses as of 08/28/2024) Resolved Problems Problem Noted Date Diagnosed Date [...] as of this encounter (statuses as of 08/28/2024) Immunizations Name Administration Dates Next Due COVID-19 mRNA, LNP-s, No Pre serve, 2-Dose Series ([employer]) 08/20/2020,07/30/2020 Pneumococcal Conjugate Vacc, 13 Valent (Prevnar) [...] No 01/18/2024 Does the household have a [facility] source of income? (Household - for ages [...] Care Team (Late st Contact Info) Description 08/30/2024 1:40 PM EDT Office Visit General Internal Medicine [facility] [place] [address] [place], [place] [address] Edilia Kenyon MD [address] [place] [address] 10/30/2024 10:00 AM EDT Office Visit [facility] [address] Hector Lopez T, DO [address] [place] [address] 01/15/2025 3:30 PM EDT Office Visit Cardiology, [facility] [place] [address] Kvng Choudhary PA-C [facility] [address] Scheduled Orders Name Type Priority Associated Diagnoses Orde r Schedule FERRITIN Lab Routine High serum ferritin Expected: 08/28/2024 (Approximate), Expires: 08/28/2025 IRON SCREEN, INCLUDING TIBC Lab Routine High serum ferritin Expected: 08/28/2024 (Approximate), Expires: 08/28/2025 HFE MUTATION ANALYSIS, PCR Lab Routine High serum ferritin Expected: 08/28/2024 (Approximate), Expires: 08/28/2025 Health Maintenance Due Date Last Done Comments Adult Wellness Visit 2005 Zoster Vaccines (2 of 3) 07/23/2009 05/28/2009 HbA1c 09/01/2023 08/31/2022, 02/20, 09/04/2019 COVID-19 Vaccine ( season) 2024 08/20/2020, 07/30/2020 CKD PHOS USE SMARTSET 68223 05/04/202404/21, 12/17/2021, 08/20/2021, Additional history exists Albumin/Creatinine Ratio 05/06/2024 023, 04/09/2016, 02/20/2015 *BISPHONATE OR OTHER ACCEPTABLE MEDICATION NEEDED FOR OSTEOPOROSIS (REFER TO SMARTSET #1146) 05/09/2024 Depression Monitoring 01/17/2025 01/18/2024 DXA Scan 04/21/2025 04/21/2023, 11/0 06/2022, 08/16/2019, Additional history exists CKD HGB USE SMARTSET 50428 07/20/202507/20, 07/20/2024, 06/23/2024, Additional history exists DTap/Tdap Vaccines (3 - Td or Tdap) 05/06/2033 05/06/2023, 09/29/2011 Hepatitis B Vaccine Completed 11/03/2002, 06/05/2002, 05/05/2002 Pneumococcal Vaccine: 50+ Years Completed 09/13/2014, 05/21/2006 Influenza Vaccine (FLU shot) Completed , 03/19/2023, 02/26/2022, Additional history exists VITAMIN D LEVEL ONCE IN A LIFETIME-USE SMARTSET# 14502 Completed 07/20/2024, 05/04/2023, 12/17/2021, Additional history exists [...] as of this encounter Visit Diagnoses Diagnosis High serum ferritin- Primary documented in this encounter Advance Directives Documents on File Type Date Recorded 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
--- OUTSIDE RECORDS SUMMARY | 2024-09-15 08:55 | External Medical Summary ---
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 Homozygosity for H63D is found in 1 to 4% of patients with hereditary hemochromatosis (HH) with a [place]- ethnic background. However, this genotype is also found in 3 to 5% of clinically unaffected individuals. The percentages of HH patients with this genotype may differ for other ethnic or racial groups. Also, this result does not rule out the presence of disease-causing mutations in other regions of the HFE gene or in other genes associated with HH. Therefore, this result should be interpreted in the context of the clinical presentation and results of the other laboratory tests (e.g., serum transferrin-iron saturation and serum ferritin). The above interpretation assumes that this molecular testing is being performed for a possible diagnosis of HH. For carrier testing, the interpretation of this result depends on the family history and the genotype of the affected individuals. A genetic consultation may be of benefit. Final Molecular diagnostic overall interpretation [Presence] in Blood or Tissue by Molecular genetics method 08/31/2024 11:51:00 Final Molecular diagnostic overall interpretation [Presence] in Blood or Tissue by Molecular genetics method 08/31/2024 11:51:00 Mutations covered in this assay include C282Y, H63D and S65C in the HFE gene. Final Additional comments [RFC] 08/31/2024 11:51:00 The performance characteristics of this assay have been validated by the [facility] at [facility]. It has not been cleared or approved by the FDA. The laboratory is regulated under CLIA as qualified to perform high complexity testing. This test is used for clinical purposes. It should not be regarded as investigational or for research. Final Additional comments [RFC] 08/31/2024 11:51:00 Final Additional comments [RFC] 08/31/2024 11:51:00 Ref: Any KV, Kalin KE, Vazquez J, [facility] [place] Clinical Guideline: Hereditary Hemochromatosis. Am J Gastroenterol. 2019;114(8):8601-2612 . Final Additional comments [RFC] 08/31/2024 11:51:00 Final Pathologist review of results 08/31/2024 11:51:00 Dr. Enio Hernandez Final Performing Location [place] [facility] [place] [facility] [address] [facility] [address]
--- OUTSIDE RECORDS SUMMARY | 2024-09-15 08:55 | External Medical Summary | Summary of Care ---
Author Name Unknown Organization [facility] Address [address] [place] [address] Phone [phone] Care Team Providers Care Ticket Dispatcher Name Role Phone Edilia Kenyon MD Primary Care Provider + Reason for Visit * Reason Onset Date Comments Test Results 08/28/2024 Encounter Details Date Type Department Care Team (Late st Contact Info) Description 08/28/2024 Telephone General Internal Medicine [facility] [address] [place] [address] Edilia Kenyon MD [address] [place] [address] Test Results Allergies Active Allergy Reactions Criticality [...] as of this encounter (statuses as of 08/30/2024) Medications HM Vitamin D3 100 MCG (4000 UT) Oral Capsule (Cholecalciferol) Take by mouth . Active Fluticasone Propionate 50 MCG/ACT Nasal Suspension (Flonase) Administer 1 [place] into nostril in the morning and 1 [place] before bedtime. 15.8 mL 3 3 Active [...] as of this encounter (statuses as of 08/30/2024) Active Problems Problem Noted Date Diagnosed Date [...] as of this encounter (statuses as of 08/30/2024) Resolved Problems Problem Noted Date Diagnosed Date [...] as of this encounter (statuses as of 08/30/2024) Immunizations Name Administration Dates Next Due COVID-19 mRNA, LNP-s, No Pre serve, 2-Dose Series ([employer]ash) 08/20/2020,07/30/2020 Pneumococcal Conjugate Vacc, 13 Valent (Prevnar) [...] encounter Miscellaneous Notes * Telephone Encounter - Nayeli Bolton CCMA - 08/30/2024 1:04 PM EDT Pt is aware of lab results and pt will have labs done * Telephone Encounter - Nayeli Bolton CCMA - 08/28/2024 11:15 AM EDT Left message for pt to call back * Telephone Encounter - Nayeli Bolton CCMA - 08/28/2024 11:15 AM EDT ----- Message from Edilia Kenyon MD sent at 08/28/2024 8:49 AM EDT ----- All labs stable except ferritin is consistently high. Make sure she is not taking any iron pill. Needs further nonfasting labs. Orders are in. documented in this encounter Plan of Treatment Upcoming Encounters Date Type Department Care Team (Late st Contact Info) Description 08/31/2024 11:20 AM EDT Office Visit General Internal Medicine [facility] [address] [facility] [place] [address] Libby Wasserman PA-C [address] [facility] [place] [address] 10/30/2024 10:00 AM EDT Office Visit Ophthalmology, [facility] [address] [facility] [place] [address] Hector Lopez, DO [address] [place] [address] 01/15/2025 3:30 PM EDT Office Visit Cardiology, [facility] [place] [address] Kvng Choudhary PAJaclyn [address] [facility] [place] [address] Health Maintenance Due Date Last Done Comments Adult Wellness Visit 2005 Zoster Vaccines (2 of 3) 07/23/2009 05/28/2009 HbA1c 09/01/2023 08/31/2022, 02/20, 09/04/2019 COVID-19 Vaccine ( season) 2024 08/20/2020, 07/30/2020 CKD PHOS USE SMARTSET 83033 05/04/202404/21, 12/17/2021, 08/20/2021, Additional history exists Albumin/Creatinine Ratio 05/06/2024 11/16/2 023, 04/09/2016, 02/20/2015 *BISPHONATE OR OTHER ACCEPTABLE MEDICATION NEEDED FOR OSTEOPOROSIS (REFER TO SMARTSET #1146) 05/09/2024 Depression Monitoring 01/17/2025 01/18/2024 DXA Scan 04/21/2025 04/21/2023, 110 06/2022, 08/16/2019, Additional history exists CKD HGB USE SMARTSET 31164 07/20/202507/20, 07/20/2024, 06/23/2024, Additional history exists DTap/Tdap Vaccines (3 - Td or Tdap) 05/06/2033 05/06/2023, 09/29/2011 Hepatitis B Vaccine Completed 11/03/2002, 06/05/2002, 05/05/2002 Pneumococcal Vaccine: 50+ Years Completed 09/13/2014, 05/21/2006 Influenza Vaccine (FLU shot) Completed , 03/19/2023, 02/26/2022, Additional history exists VITAMIN D LEVEL ONCE IN A LIFETIME-USE SMARTSET# 86710 Completed 07/20/2024, 05/04/2023, 12/17/2021, Additional history exists [...] Documents on File Type Date Recorded 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
--- OUTSIDE RECORDS SUMMARY | 2024-09-15 08:55 | External Medical Summary ---
Author Name Unknown Address Unknown Organization K01:[facility] [place] [address] [facility] [place] [address] Laboratory Report Ordering Provider Test Date Status DEVANTE JUAREZ 08/31/2024 11:55:20 Final Drugs that require complianc e testing:

Opioids:
Oxycodone: Quantity one pill Date/Time of last Dose 2 days back.

Benzodiazepines
Lorazepam: Quantity pne pill Date/Time of last Dose last night

Cutoff Concentrations:
Drug Level
Alpha-Hydroxyalprazolam 10 ng/mL
7-Aminoclonazepam 20 ng/mL
Nordiazepam 20 ng/mL
Oxazepam 20 ng/mL
Temazepam 20 ng/mL
Lorazepam 10 ng/mL

This test was developed and its performance characteristics determined by [employer]. It has not been cleared or approved by the [place] Food and Drug Administration. Observation Date Value Abnormality Reference (Units) Status METHODOLOGY 08/31/2024 11:55:20 LC-MS/MS Final Alpha hydroxyalprazolam cutoff [Mass/volume] in Urine for Confirmatory method 08/31/2024 11:55:20 Negative Negative Final 7-Aminoclonazepam [Mass/volume] in Urine by Confirmatory method 08/31/2024 11:55:20 Negative Negative Final Nordiazepam cutoff [Mass/volume] in Urine for Confirmatory method 08/31/2024 11:55:20 Negative Negative Final Oxazepam cutoff [Mass/volume] in Urine for Confirmatory method 08/31/2024 11:55:20 Negative Negative Final Temazepam cutoff [Mass/volume] in Urine for Confirmatory method 08/31/2024 11:55:20 Negative Negative Final LORazepam cutoff [Mass/volume] in Urine for Confirmatory method 08/31/2024 11:55:20 710 Above high normal Negative (ng/mL) Final Performing Location [facility] [place] - [facility] [address] [facility] [address]
--- OUTSIDE RECORDS SUMMARY | 2024-09-15 08:55 | External Medical Summary | Summary of Care ---
Author Name Unknown Organization [facility] Address [address] [place] [address] Phone [phone] Care Team Providers Care Carbide Grinder Name Role Phone Edilia Kenyon MD Primary Care Provider + Reason for Visit * Reason Comments Follow Up Encounter Details Date Type Department Care Team (Latest Contact Info) Description 08/31/2024 11:20 AM EDT Office Visit [facility] [address] [facility] [place] [address] Libby Wasserman PA-C [address] [place] [place] [address] Elevated ferritin level*; Dyslipidemia, goal LDL below 130; Prediabetes; HTN, goal below 140/90; 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 15.8 mL 3 3 Active [...] cut, crush or chew. 90 Capsule 3 08/12/202 4 Active Losartan Potassium 50 MG Oral [...] PM EDT documented as of this encounter Last Filed Vital Signs Vital Sign Reading Time Taken Comments Blood Pressure 140/71 08/31/2024 11:11 AM EDT Pulse 61 08/31/2024 11:11 AM EDT Temperature 37 C (98.6 F) 08/31/2024 11:11 AM EDT Respiratory Rate - - Oxygen Saturation - - Inhaled Oxygen Concentration - - Weight 47 kg (103 lb 9.6 oz) 08/31/2024 11:11 AM EDT Height - - Body Mass Index 20.23 07/20/2024 11:20 AM EST documented in this encounter Progress Notes * Libby Wasserman PA-C - 08/31/2024 11:20 AM EDT Images from the original note were not included. Subjective Edith Guerra is a 84 year old female that presents for Follow Up Pt here today for a routine f/up of chronic medical conditions. Labs done end of June with elevated ferritin. Otherwise were stable. Follows with Cardiology, Ophth, Nephrology, and Pain Mgmt routinely. Missed her last nephrology appt--needs to reschedule this. Denies unusual chest pain, SOB, urinary symptoms. Does have some occasional constipation. Going to start a stool softener for this. Pt also reports having L sided rib pain. Adamantly states she did not fall, but she did slide out of bed onto the floor, striking her left side on her bed frame. This occurred approx 4 weeks ago--pain is improved but is still present. Requesting an xray. Review of Systems: See HPI for pertinent positives. All other review of systems is negative. Objective BP 140/71 | Pulse 61 | Temp 98.6 F (37 C) | Wt 103 lb 9.6 oz (47 kg) | BMI 20.23 kg/m | BSA 1.41 m Physical Exam Constitutional: General: She is not in acute distress. Appearance: She is not diaphoretic. HENT: Right Ear: Tympanic membrane, ear canal and external ear normal. Left Ear: Tympanic membrane, ear canal and external ear normal. Mouth/Throat: Mouth: Mucous membranes are moist. Pharynx: Oropharynx is clear. Cardiovascular: Rate and Rhythm: Normal rate and regular rhythm. Pulmonary: Effort: Pulmonary effort is normal. Breath sounds: Normal breath sounds. Abdominal: General: Bowel sounds are normal. Palpations: Abdomen is soft. Musculoskeletal: Cervical back: Normal range of motion and neck supple. Skin: General: Skin is warm and dry. Neurological: General: No focal deficit present. Mental Status: She is alert. Mental status is at baseline. Results reviewed : CMP, CBC, and 25-Hydroxy Vit D Assessment and Plan Elevated ferritin level Repeat labs today as ordered by PCP earlier this week. Dyslipidemia, goal LDL below 130 Continue current meds. Prediabetes Orders: HEMOGLOBIN A1C; Future HTN, goal below 140/90 Continue current meds. Controlled. 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 Vitamin D deficiency Continue current supplement. Recent level WNL. Moderate episode of recurrent major depressive disorder (HCC) Stable--continue current meds. Anxiety state Stable--continue current meds. Opioid dependence, uncomplicated (HCC) Continue to follow with pain mgmt. Updated UDS ordered. 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 | For: Labs Today, Return with Physician | Check-out note: Lab orders from 08/28 and today. I spent a total of 30-39 minutes (exact time 34 mins) on the date of service in preparation, delivery, and documentation of the care provided to Edith Guerra excluding any time spent in the performance of separately billed services. documented in this encounter Nursing Notes * Nayeli Bolton CCMA - 08/31/2024 11:08 AM EDT Pt is here today for a follow up pt was to see Dr. Kenyon yesterday but pt was not feeling well pt is doing okay today pt would like a xray of her left side of ribs pt had an accident on 08/05/24 and pt had broken ribs pt did take her medications this morning documented in this encounter Miscellaneous Notes * Result Encounter Note - Libby Wasserman PA-C - 08/31/2024 1:46 PM EDT Pt noted to have multiple rib fractures of L 6th-9th ribs. Non displaced. Given her age and the number of rib fractures, would recommend for pt to go to the ER for acute management and monitoring. * Assessment & Plan Note - Libby Wasserman PA-C - 08/31/2024 11:47 AM EDTAssociated Problem(s): Dyslipidemia, goal LDL below 130 Continue current meds. * Assessment & Plan Note - Libby Wasserman PA-C - 08/31/2024 11:47 AM EDTAssociated Problem(s): Prediabetes Orders: HEMOGLOBIN A1C; Future * Assessment & Plan Note - Libby Wasserman PA-C - 08/31/2024 11:47 AM EDTAssociated Problem(s): HTN, goal below 140/90 Continue current meds. Controlled. 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 * Assessment & Plan Note - Libby Wasserman PA-C - 08/31/2024 11:47 AM EDTAssociated Problem(s): Vitamin D deficiency Continue current supplement. Recent level WNL. * Assessment & Plan Note - Libby Wasserman PA-C - 08/31/2024 11:47 AM EDTAssociated Problem(s): Primary osteoarthritis involving multiple joints * Assessment & Plan Note - Libby Wasserman PA-C - 08/31/2024 11:47 AM EDTAssociated Problem(s): Moderate episode of recurrent major depressive disorder (HCC) Stable--continue current meds. * Assessment & Plan Note - Libby Wasserman PA-C - 08/31/2024 11:47 AM EDTAssociated Problem(s): Anxiety state Stable--continue current meds. * Assessment & Plan Note - Libby Wasserman PA-C - 08/31/2024 11:47 AM EDTAssociated Problem(s): Opioid dependence, uncomplicated (HCC) Continue to follow with pain mgmt. Updated UDS ordered. * Assessment & Plan Note - Libby Wasserman PA-C - 08/31/2024 11:47 AM EDTAssociated Problem(s): Chronic bilateral low back pain with left-sided sciatica documented in this encounter Plan of Treatment Upcoming Encounters Date Type Department Care Team (Late st Contact Info) Description 10/30/2024 10:00 AM EDT Office Visit Ophthalmology, [facility] [address] [facility] [place] [address] Hector Lopez, DO [address] [place] [address] 01/15/2025 3:30 PM EDT Office Visit Cardiology, [facility] [address] [place] [address] Kvng Choudhary PA-C [address] [facility] [place] [address] 03/22/2025 1:40 PM EDT Office Visit [facility] [address] [facility] [place] [address] Edilia Kenyon MD [address] [facility] [place] [address] 04/20/2025 1:40 PM EDT Office Visit Nephrology, [facility] [address] [facility] [place], [place] [address] Jordyn Santillan MD [address] [facility] [place], [place] [address] Health Maintenance Due Date Last Done Comments [...] Additional history exists CKD HGB USE SMARTSET 21287 07/20/202507/20, 07/20/2024, 06/23/2024, Additional history exists CKD PHOS USE SMARTSET 04552 08/31/202508/19, 05/04/2023, 12/17/2021, Additional history exists DTap/Tdap Vaccines (3 - Td or Tdap) 05/06/2033 05/06/2023, 09/29/2011 Hepatitis B Vaccine Completed 11/03/2002, 06/05/2002, 05/05/2002 Pneumococcal Vaccine: 50+ Years Completed 09/13/2014, 05/21/2006 Influenza Vaccine (FLU shot) Completed , 03/19/2023, 02/26/2022, Additional history exists VITAMIN D LEVEL ONCE IN A LIFETIME-USE SMARTSET# 94728 Completed 07/20/2024, 05/04/2023, 12/17/2021, Additional history exists [...] Procedure Name Priority Date/Time Associated Diagnosis Comments XR RIBS UNILATERAL W/PA CHEST MINIMUM 3 VIEWS Routine 08/31/2024 12:14 PM EDT Rib pain on left side PHOSPHORUS Routine 08/31/2024 11:52 AM EDT 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 No pneumothorax. Narrative 08/31/2024 12:37 PM EDT EXAM XR RIBS UNILATERAL W/PA CHEST MINIMUM 3 VIEWS-08/31/2024 12:14 pm HISTORY Pain COMPARISON Chest radiograph 08/25/2019. TECHNIQUE Four views of the ribs including a PA radiograph of the chest. FINDINGS The lungs are clear. There is no pleural effusion. No pneumothorax. The pulmonary vasculature and cardiomediastinal silhouette are within normal limits. Nondisplaced left 6th through 9th rib fractures laterally. Chronic appearing left 3rd through 5th rib fractures. Procedure Note Tyron Camargo MD - 08/31/2024 EXAM XR RIBS UNILATERAL W/PA CHEST MINIMUM 3 VIEWS-08/31/2024 12:14 pm HISTORY Pain COMPARISON Chest radiograph 08/25/2019. TECHNIQUE Four views of the ribs including a PA radiograph of the chest. FINDINGS The lungs are clear. There is no pleural effusion. No pneumothorax. Thepulmonary vasculature and cardiomediastinal silhouette are within normallimits. Nondisplaced left 6th through 9th rib fractures laterally.Chronic appearing left 3rd through 5th rib fractures. IMPRESSION IMPRESSION Nondisplaced left 6th through 9th rib fractures laterally. Nopneumothorax. 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
--- OUTSIDE RECORDS SUMMARY | 2024-09-15 08:55 | External Medical Summary ---
Author Name Unknown Address Unknown Organization K09:[facility] [place] [address] Laboratory Report Ordering Provider Test Date Status OLAF ELDER 08/31/2024 11:52:03 Final Observation Date Value Abnormality Reference (Units ) Status Phosphate 08/31/2024 11:52:03 3.6 2.5-4.8 (m g/dL) Final Performing Location [facility] [place] [address]
--- OUTSIDE RECORDS SUMMARY | 2024-09-15 08:55 | External Medical Summary ---
Author Name Unknown Address Unknown Organization [id number]:[facility] - [facility] [place] [address] Laboratory Report Ordering Provider Test Date Status DEVANTE JUAREZ 08/31/2024 11:55:20 Final Normal: <30 mg/g creatinine< br/>High: 30-300 mg/g creatinine
Very High: >300 mg/g creatinine
Nephrotic: >2200 mg/g creatinine Observation Date Value Abnormality Reference (Units ) Status Albumin, Urine 08/31/2024 11:55:20 <1.20 (mg/dL) Final Creatinine, Urine 08/31/2024 11:55:20 98 (mg/dL) Final Albumin/Creatinine [Mass Ratio] in Urine 08/31/2024 11:55:20 <12 <30 (mg/g Creat) Final Performing Location [facility] - [facility] [place] [address]
--- OUTSIDE RECORDS SUMMARY | 2024-09-15 08:55 | External Medical Summary ---
Author Name Unknown Address Unknown Organization K01:[facility]ATORY [facility] - [address] [place] [address] Laboratory Report Ordering Provider Test Date Status DEVANTE JUAREZ 08/31/2024 11:52:26 Final Observation Date Value Abnormality Reference (Units ) Status HbA1C 08/31/2024 11:52:26 5.8 Above high normal 4. 0-5.6 (%) Final The use of HbA1c to monitor glycemic status is based on normal hemoglobin and HbA composition. This test should not be used in patients with abnormal hemoglobin that affects the half life of the red blood cell or the in vivo glycation rates. Glucose, estimated average 08/31/2024 11:52:26 120 <126 (mg/dL) Final Performing Location [facility] - [facility] [place] [address] [place] [address]
--- OUTSIDE RECORDS SUMMARY | 2024-09-15 08:55 | External Medical Summary ---
Author Name Unknown Address Unknown Organization K01:[facility]ATORY [facility] - [facility] [address] [address] Laboratory Report Ordering Provider Test Date Status DEVANTE JUAREZ 08/31/2024 11:52:15 Final Observation Date Value Abnormality Reference (Units ) Status Iron 08/31/2024 11:52:15 87 33-151 (ug /dL) Final Iron-binding capacity 08/31/2024 11:52:15 311 250-425 (ug/dL) Final Transferrin Sat % 08/31/2024 11:52:15 28 15 -55 (%) Final Performing Location [facility] - [facility] [address] [address]
--- OUTSIDE RECORDS SUMMARY | 2024-09-15 08:56 | External Medical Summary | Summary of Care ---
Author Name Unknown Organization [facility] Address [address] [place] [facility] [place] [address] Phone [phone] Care Team Providers Care Chief Wellness Officer Name Role Phone Edilia Kenyon MD Primary Care Provider + Reason for Visit * Reason Onset Date Comments Medication Refill 07/31/2024 Encounter Details Date Type Department Care Team (Late st Contact Info) Description 07/31/2024 Refill General Internal Medicine [facility] [address] [place] [address] Edilia Kenyon MD [address] [place] [address] Nausea without vomiting Allergies Active Allergy Reactions [...] as of this encounter (statuses as of 08/01/2024) Medications HM Vitamin D3 100 MCG (4000 UT) Oral Capsule (Cholecalciferol) Take by mouth . Active Fluticasone Propionate 50 MCG/ACT Nasal Suspension (Flonase) Administer 1 [place] into nostril in the morning and 1 [place] before bedtime. 15.8 mL 3 10/15/19 23 Active Additional Information Patient not taking.Reported on [...] morning. 90 Tablet 3 04/11/20 24 Active hydrOXYzine HCl 25 MG Oral TabletIndications :Anxiety state Take 1 Tablet by mouth 2 times a day as needed for Anxiety. 60 Tablet 07/06/19 25 Active LORazepam 0.5 MG Oral Tablet (Ativan)Indicatio ns:JAYLYN (generalized anxiety disorder) TAKE ONE TABLET BY MOUTH AT BEDTIME NEEDED FOR INSOMNIA 30 Tablet 07/20/19 25 Active oxyCODONE HCl 5 MG Oral Tablet (Oxy IR)Indications:Ch ronic upper back pain Take 1 Tablet by mouth every 8 hours as needed for Pain, Moderate. Continued script 90 Tablet 07/20/19 25 Active Ondansetron HCl 4 MG Oral Tablet (Zofran)Indicatio ns:Nausea without vomiting TAKE 2 TABLETS 3 X A DAY NEEDED FOR NAUSEA 50 Tablet 1 08/01/19 25 Active Ondansetron HCl 4 MG Oral Tablet (Zofran)Indicatio ns:Nausea without vomiting TAKE 2 TABLETS 3 X A DAY NEEDED FOR NAUSEA 50 Tablet 1 05/19/20 24 025 Discontin ued(Refil l) documented as of this encounter (statuses as of 08/01/2024) Active Problems Problem Noted Date Diagnosed Date [...] as of this encounter (statuses as of 08/01/2024) Resolved Problems Problem Noted Date Diagnosed Date [...] as of this encounter (statuses as of 08/01/2024) Immunizations Name Administration Dates Next Due COVID-19 mRNA, LNP-s, No Pre serve, 2-Dose Series (Browsy) 08/20/2020,07/30/2020 Pneumococcal Conjugate Vacc, 13 Valent (Prevnar) [...] encounter Miscellaneous Notes * Telephone Encounter - Lana Prabhakar RP - 08/01/2024 1:22 PM ESTSigned Prescriptions: Disp Refills Ondansetron HCl 4 MG Oral Tablet (Zofran) 50 Tab*1 Sig: TAKE 2 TABLETS 3 X A DAY NEEDED FOR NAUSEAAuthorizing Provider: EDILIA KENYON User: LANA PRABHAKAR documented in this encounter Plan of Treatment Upcoming Encounters Date Type Department Care Team (Late st Contact Info) Description 08/24/2024 11:40 AM EST Office Visit Nephrology, [facility] [address] [facility] [place] [address] Jordyn Santillan MD [address] [facility] [place] [address] 08/30/2024 1:40 PM EDT Office Visit General Internal Medicine [facility] [address] [place] [address] Edilia Kenyon MD [address] [facility] [place] [address] 10/30/2024 10:00 AM EDT Office Visit Ophthalmology, [facility] [address] [facility] [place] [address] Hector Lopez T, DO [address] [place] [address] 01/15/2025 3:30 PM EDT Office Visit Cardiology, [facility] [address] [facility] [place] [address] Kvng [facility]oudhary [facility]ZacC [facility] [address] Health Maintenance Due Date Last Done Comments Adult Wellness Visit 2005 Zoster Vaccines (2 of 3) 07/23/2009 05/28/2009 HbA1c 09/01/2023 08/31/2022, 02/20, 09/04/2019 COVID-19 Vaccine ( season) 2024 08/20/2020, 07/30/2020 CKD PHOS USE SMARTSET 09425 05/04/202404/21, 12/17/2021, 08/20/2021, Additional history exists Albumin/Creatinine Ratio 05/06/2024 023, 04/09/2016, 02/20/2015 *BISPHONATE OR OTHER ACCEPTABLE MEDICATION NEEDED FOR OSTEOPOROSIS (REFER TO SMARTSET #1146) 05/09/2024 Depression Monitoring 01/17/2025 01/18/2024 GFR 01/17/2025 07/20/2024, 04/21, 08/31/2022, Additional history exists DXA Scan 04/21/2025 04/21/2023, 1106/2022, 08/16/2019, Additional history exists CKD HGB USE SMARTSET 53796 07/20/202507/20, 07/20/2024, 06/23/2024, Additional history exists DTap/Tdap Vaccines (3 - Td or Tdap) 05/06/2033 05/06/2023, 09/29/2011 Hepatitis B Vaccine Completed 11/03/2002, 06/05/2002, 05/05/2002 Pneumococcal Vaccine: 50+ Years Completed 09/13/2014, 05/21/2006 Influenza Vaccine (FLU shot) Completed , 03/19/2023, 02/26/2022, Additional history exists VITAMIN D LEVEL ONCE IN A LIFETIME-USE SMARTSET# 77089 Completed 07/20/2024, 05/04/2023, 12/17/2021, Additional history exists [...] on File Type Date Recorded Patient Wood Fuel Pelletizer Expl anation Advance Directives and Livin g Will 12/25/2018 LIVING WILL Power of Warehouse General Laborer 12/25/2018 POWER OF A TTORNEY Care Teams Chief Wellness Officer Relationship Specialty Start Date End Date Edilia Kenyon MD [address] [place] [address] PCP - General Internal Medicine 07/28/19 documented as of this encounter
--- OUTSIDE RECORDS SUMMARY | 2024-09-15 08:56 | External Medical Summary | Summary of Care ---
Author Name Unknown Organization [facility] Address [address] [place] [facility] [place] [address] Phone [phone] Care Team Providers Care Health Safety Engineer Name Role Phone Edilia Kenyon MD Primary Care Provider + Encounter Details Date Type Department Care Team (Late st Contact Info) Description 08/01/2024 Population Health External Data Unspecified Department Allergies Active Allergy Reactions Criticality Noted Date [...] as of this encounter (statuses as of 08/02/2024) Medications HM Vitamin D3 100 MCG (4000 UT) Oral Capsule (Cholecalciferol) Take by mouth . Active Fluticasone Propionate 50 MCG/ACT Nasal Suspension (Flonase) Administer 1 [place] into nostril in the morning and 1 [place] before bedtime. 15.8 mL 3 3 Active [...] Moderate. Continued script 90 Tablet 5 Active Ondansetron HCl 4 MG Oral Tablet (Zofran)Indicatio ns:Nausea without vomiting TAKE 2 TABLETS 3 X A DAY NEEDED FOR NAUSEA 50 Tablet 1 5 Active documented as of this encounter (statuses as of 08/02/2024) Active Problems Problem Noted Date Diagnosed Date [...] as of this encounter (statuses as of 08/02/2024) Resolved Problems Problem Noted Date Diagnosed Date [...] as of this encounter (statuses as of 08/02/2024) Immunizations Name Administration Dates Next Due COVID-19 [...] 08/24/2024 11:40 AM EST Office Visit Nephrology, [facility] [address] [place] [address] Jordyn Santillan MD [address] [place] [address] 08/30/2024 1:40 PM EDT Office Visit General Internal Medicine [facility] [address] [place] [address] Edilia Kenyon MD [address] [place] [address] 10/30/2024 10:00 AM EDT Office Visit Ophthalmology, [facility] [address] [place] [address] Hector Lopez, [address] [place] [address] [place] [address] 01/15/2025 3:30 PM EDT Office Visit Cardiology, [facility] [address] [place] [address] Kvng Choudhary, PAZacC [address] [place] [address] Health Maintenance Due Date Last Done Comments Adult Wellness Visit 2005 Zoster Vaccines (2 of 3) 07/23/2009 05/28/2009 HbA1c 09/01/2023 08/31/2022, 02/20, 09/04/2019 COVID-19 Vaccine ( season) 2024 08/20/2020, 07/30/2020 CKD PHOS USE SMARTSET 48670 05/04/202404/21, 12/17/2021, 08/20/2021, Additional history exists Albumin/Creatinine Ratio 05/06/2024 023, 04/09/2016, 02/20/2015 *BISPHONATE OR OTHER ACCEPTABLE MEDICATION NEEDED FOR OSTEOPOROSIS (REFER TO SMARTSET #1146) 05/09/2024 Depression Monitoring 01/17/2025 01/18/2024 GFR 01/17/2025 07/20/2024, 04/21, 08/31/2022, Additional history exists DXA Scan 04/21/2025 04/21/2023, 06/2022, 08/16/2019, Additional history exists CKD HGB USE SMARTSET 15199 07/20/202507/20, 07/20/2024, 06/23/2024, Additional history exists DTap/Tdap Vaccines (3 - Td or Tdap) 05/06/2033 05/06/2023, 09/29/2011 Hepatitis B Vaccine Completed 11/03/2002, 06/05/2002, 05/05/2002 Pneumococcal Vaccine: 50+ Years Completed 09/13/2014, 05/21/2006 Influenza Vaccine (FLU shot) Completed , 03/19/2023, 02/26/2022, Additional history exists VITAMIN D LEVEL ONCE IN A LIFETIME-USE SMARTSET# 68567 Completed 07/20/2024, 05/04/2023, 12/17/2021, Additional history exists HPV (Gardasil) Vaccine Aged Out No lo nger eligible based on patient's age to complete this topic MENINGOCOCCAL (MENACTRA/MENVEO) Aged Out No longer eligible based on patient's age to complete this topic documented as of this encounter Medical Devices Not on filedocumented as of this encounter Advance Directives Documents on File Type Date Recorded 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
--- OUTSIDE RECORDS SUMMARY | 2024-09-15 08:56 | External Medical Summary | Summary of Care ---
Author Name Unknown Organization [facility] Address [address] [place] [facility] [place] [address] Phone [phone] Care Team Providers Care Yardage Control Operator Name Role Phone Edilia Kenyon MD Primary Care Provider + Reason for Visit * Reason Onset Date Comments Medication Refill 07/19/2024 Encounter Details Date Type Department Care Team (Late st Contact Info) Description 07/19/2024 Refill General Internal Medicine [facility] [address] [facility] [place] [address] Anjum Crump, DO [address] [facility] [place] [address] JAYLYN (generalized anxiety disorder); Chronic upper back [...] as of this encounter (statuses as of 07/20/2024) Medications HM Vitamin D3 100 MCG (4000 UT) Oral Capsule (Cholecalciferol) Take by mouth . Active Fluticasone Propionate 50 MCG/ACT Nasal Suspension (Flonase) Administer 1 [place] into nostril in the morning and 1 [place] before bedtime. 15.8 mL 3 3 Active [...] DAY NEEDED FOR NAUSEA 50 Tablet 1 4 Active hydrOXYzine HCl 25 MG Oral [...] as of this encounter (statuses as of 07/20/2024) Active Problems Problem Noted Date Diagnosed Date [...] as of this encounter (statuses as of 07/20/2024) Resolved Problems Problem Noted Date Diagnosed Date [...] as of this encounter (statuses as of 07/20/2024) Immunizations Name Administration Dates Next Due COVID-19 [...] ages 0-17 years) Not on file 01/18/2024 Comments No Sex and Gender Information Value Date Recorded Sex Assigned at Female 09/12/2018 4:25 PM EDT Legal Sex Female 7:20 AM EST Gender Identity Female 09/12/2018 4:25 PM EDT Sexual Orientation Straight 09/12/2018 4: 25 PM EDT documented as of this encounter Miscellaneous Notes * Telephone Encounter - López Arndt RP - 07/20/2024 3:31 PM ESTRefused Prescriptions: Disp Refills LORazepam 0.5 MG Oral Tablet (Ativan) 30 Tab*0 Sig: TAKE ONE TABLET BY MOUTH AT BEDTIME NEEDED FOR INSOMNIA Refused By: LÓPEZ ARNDT Reason for Refusal: Duplicate Request oxyCODONE HCl 5 MG Oral Tablet (Oxy IR) 90 Tab*0 Sig: Take 1 Tablet by mouth every 8 hours as needed for Pain, Moderate. Continued scrip t Refused By: LÓPEZ ARNDT Reason for Refusal: Duplicate Request * Telephone Encounter - Nayeli Miranda OSA - 07/20/2024 8:00 AM EST Patient calling in to check on the status of previous message. documented in this encounter Plan of Treatment Upcoming Encounters Date Type Department Care Team (Late st Contact Info) Description 08/24/2024 11:40 AM EST Office Visit Nephrology, [facility] [address] [place] [address] Jordyn Santillan MD [address] [place] [address] 08/30/2024 1:40 PM EDT Office Visit General Internal Medicine [facility] [place] [address] [facility] [place] [address] Edilia Kenyon MD [address] [facility] [place] [address] 10/30/2024 10:00 AM EDT Office Visit Ophthalmology, [facility] [address] [facility] [place] [address] Hector Lopez, [address] [place] [address] 01/15/2025 3:30 PM EDT Office Visit Cardiology, [facility] [place] [address] Kvng Choudhary PAZacC [address] [facility] [address] Health Maintenance Due Date Last Done Comments Adult Wellness Visit 2005 Zoster Vaccines (2 of 3) 07/23/2009 05/28/2009 HbA1c 09/01/2023 08/31/2022, 02/20, 09/04/2019 COVID-19 Vaccine ( season) 2024 08/20/2020, 07/30/2020 CKD PHOS USE SMARTSET 15235 05/04/202404/21, 12/17/2021, 08/20/2021, Additional history exists Albumin/Creatinine Ratio 05/06/2024 023, 04/09/2016, 02/20/2015 *BISPHONATE OR OTHER ACCEPTABLE MEDICATION NEEDED FOR OSTEOPOROSIS (REFER TO SMARTSET #1146) 05/09/2024 Depression Monitoring 01/17/2025 01/18/2024 GFR 01/17/2025 07/20/2024, 04/21, 08/31/2022, Additional history exists DXA Scan 04/21/2025 04/21/2023, 1106/2022, 08/16/2019, Additional history exists CKD HGB USE SMARTSET 49725 07/20/202507/20, 07/20/2024, 06/23/2024, Additional history exists DTap/Tdap Vaccines (3 - Td or Tdap) 05/06/2033 05/06/2023, 09/29/2011 Hepatitis B Vaccine Completed 11/03/2002, 06/05/2002, 05/05/2002 Pneumococcal Vaccine: 50+ Years Completed 09/13/2014, 05/21/2006 VITAMIN D LEVEL ONCE IN A LIFETIME-USE SMARTSET# [id number] Completed 07/20/2024, 05/04/2023, 12/17/2021, Additional history exists Influenza Vaccine (FLU shot) Completed , 03/19/2023, 02/26/2022, Additional history exists HPV (Gardasil) Vaccine Aged [...] Documents on File Type Date Recorded Patient Fuel 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
--- OUTSIDE RECORDS SUMMARY | 2024-09-15 08:56 | External Medical Summary | Summary of Care ---
Author Name Unknown Organization [facility] Address [address] [place] [address] Phone [phone] Care Team Providers Care Intake Manager Name Role Phone Edilia Kenyon MD Primary Care Provider + Reason for Visit * Reason Onset Date Comments FYI 07/31/2024 Encounter Details Date Type Department Care Team (Late st Contact Info) Description 07/31/2024 Telephone General Internal Medicine [facility] [address] [place] [address] Edilia Kenyon MD [address] [place] [address] FYI Allergies Active Allergy Reactions Criticality Noted Date [...] 50 MCG/ACT Nasal Suspension (Flonase) Administer 1 [place] into nostril in the morning and 1 [place] before bedtime. 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 documented in this encounter Plan of Treatment Upcoming Encounters Date Type Department Care Team (Late st Contact Info) Description 08/24/2024 11:40 AM EST Office Visit Nephrology, [facility] [address] [place] [address] Jordyn Santillan MD [address] [place] [address] 08/30/2024 1:40 PM EDT Office Visit General Internal Medicine [facility] [address] [place] [address] Edilia Kenyon MD [address] [place] [address] 10/30/2024 10:00 AM EDT Office Visit Ophthalmology, [facility] [address] [facility] [place] [address] Hector Lopez T, DO [address] [place] [address] 01/15/2025 3:30 PM EDT Office Visit Cardiology, [facility] [address] [place] [address] Kvng Choudhary, PAZacC 132 [facility] [place] [address] Health Maintenance Due Date Last Done Comments Adult Wellness Visit 2005 Zoster Vaccines (2 of 3) 07/23/2009 05/28/2009 HbA1c 09/01/2023 08/31/2022, 02/20, 09/04/2019 COVID-19 Vaccine ( season) 2024 08/20/2020, 07/30/2020 CKD PHOS USE SMARTSET 08149 05/04/202404/21, 12/17/2021, 08/20/2021, Additional history exists Albumin/Creatinine Ratio 05/06/2024 023, 04/09/2016, 02/20/2015 *BISPHONATE OR OTHER ACCEPTABLE MEDICATION NEEDED FOR OSTEOPOROSIS (REFER TO SMARTSET #1146) 05/09/2024 Depression Monitoring 01/17/2025 01/18/2024 GFR 01/17/2025 07/20/2024, 04/21, 08/31/2022, Additional history exists DXA Scan 04/21/2025 04/21/2023, 06/2022, 08/16/2019, Additional history exists CKD HGB USE SMARTSET 78199 07/20/202507/20, 07/20/2024, 06/23/2024, Additional history exists DTap/Tdap Vaccines (3 - Td or Tdap) 05/06/2033 05/06/2023, 09/29/2011 Hepatitis B Vaccine Completed 11/03/2002, 06/05/2002, 05/05/2002 Pneumococcal Vaccine: 50+ Years Completed 09/13/2014, 05/21/2006 Influenza Vaccine (FLU shot) Completed , 03/19/2023, 02/26/2022, Additional history exists VITAMIN D LEVEL ONCE IN A LIFETIME-USE SMARTSET# 97647 Completed 07/20/2024, 05/04/2023, 12/17/2021, Additional history exists HPV (Gardasil) Vaccine Aged Out No lo nger eligible based on patient's age to complete this topic MENINGOCOCCAL (MENACTRA/MENVEO) Aged Out No longer eligible based on patient's age to complete this topic documented as of this encounter Medical Devices Not on filedocumented as of this encounter Advance Directives Documents on File Type Date Recorded Patient Duster Tender Expl anation Advance Directives and Livin g Will 12/25/2018 LIVING WILL Power of Blender Helper 12/25/2018 POWER OF A TTORNEY Care Teams Intake Manager Relationship Specialty Start Date End Date Edilia eKnyon MD 200 [facility] [place] [address] PCP - General Internal Medicine 07/28/19 documented as of this encounter
--- OUTSIDE RECORDS SUMMARY | 2024-09-15 08:56 | External Medical Summary | Summary of Care ---
Author Name Unknown Organization [facility] Address [address] [place] [address] Phone [phone] Care Team Providers Care Medical Insurance Coder Name Role Phone Edilia Kenyon MD Primary Care Provider + Reason for Visit * Reason Onset Date Comments Medication Refill 08/16/2024 Encounter Details Date Type Department Care Team (Late st Contact Info) Description 08/16/2024 Telephone General Internal Medicine [facility] [address] [place] [address] Edilia Kenyon MD [address] [facility] [place] [address] Medication Refill Allergies Active Allergy Reactions Criticality Noted Date [...] as of this encounter (statuses as of 08/16/2024) Medications HM Vitamin D3 100 MCG (4000 UT) Oral Capsule (Cholecalciferol) Take by mouth . Active Fluticasone Propionate 50 MCG/ACT Nasal Suspension (Flonase) Administer 1 [place] into nostril in the morning and 1 [place] before bedtime. 15.8 mL 3 3 Active [...] as of this encounter (statuses as of 08/16/2024) Active Problems Problem Noted Date Diagnosed Date [...] as of this encounter (statuses as of 08/16/2024) Resolved Problems Problem Noted Date Diagnosed Date [...] as of this encounter (statuses as of 08/16/2024) Immunizations Name Administration Dates Next Due COVID-19 [...] encounter Miscellaneous Notes * Telephone Encounter - Antoinette Thompson LPN - 08/16/2024 2:57 PM EST Called and spoke with patient. Notified of refill. Patient verbalized understanding. No further questions or concerns at this time. * Telephone Encounter - Pietro Matos OSA - 08/16/2024 1:48 PM EST Pt is out of pain meds, Pt call for status med refills, please call pt KECIA At [phone] documented in this encounter Plan of Treatment Upcoming Encounters Date Type Department Care Team (Late st Contact Info) Description 08/24/2024 11:40 AM EST Office Visit Nephrology, [facility] [address] [place] [address] Jordyn Santillan MD 200 [facility] [place] [address] 08/30/2024 1:40 PM EDT Office Visit General Internal Medicine [facility] [place] [address] [place] [address] Edilia Kenyon MD 200 [facility] [place] [address] 10/30/2024 10:00 AM EDT Office Visit Ophthalmology, [facility] [address] [facility] [place] [address] Hector Lopez, [address] [place] [address] 01/15/2025 3:30 PM EDT Office Visit Cardiology, [facility] [place] [address] Kvng Choudhary, PAZacC [address] [facility] [address] Health Maintenance Due Date Last Done Comments Adult Wellness Visit 2005 Zoster Vaccines (2 of 3) 07/23/2009 05/28/2009 HbA1c 09/01/2023 08/31/2022, 02/20, 09/04/2019 COVID-19 Vaccine ( season) 2024 08/20/2020, 07/30/2020 CKD PHOS USE SMARTSET 43935 05/04/202404/21, 12/17/2021, 08/20/2021, Additional history exists Albumin/Creatinine Ratio 05/06/2024 023, 04/09/2016, 02/20/2015 *BISPHONATE OR OTHER ACCEPTABLE MEDICATION NEEDED FOR OSTEOPOROSIS (REFER TO SMARTSET #1146) 05/09/2024 Depression Monitoring 01/17/2025 01/18/2024 DXA Scan 04/21/2025 04/21/2023, 06/2022, 08/16/2019, Additional history exists CKD HGB USE SMARTSET 08381 07/20/202507/20, 07/20/2024, 06/23/2024, Additional history exists DTap/Tdap Vaccines (3 - Td or Tdap) 05/06/2033 05/06/2023, 09/29/2011 Hepatitis B Vaccine Completed 11/03/2002, 06/05/2002, 05/05/2002 Pneumococcal Vaccine: 50+ Years Completed 09/13/2014, 05/21/2006 Influenza Vaccine (FLU shot) Completed , 03/19/2023, 02/26/2022, Additional history exists VITAMIN D LEVEL ONCE IN A LIFETIME-USE SMARTSET# 08317 Completed 07/20/2024, 05/04/2023, 12/17/2021, Additional history exists [...] Documents on File Type Date Recorded Patient Laundry Press Operator Expl anation Advance Directives and Livin g Will 12/25/2018 LIVING WILL Power of Tufting Machine Operator Single Needle 12/25/2018 POWER OF A TTORNEY Care Teams Medical Insurance Coder Relationship Specialty Start Date End Date Edilia Kenyon MD 200 [facility] [place] [address] PCP - General Internal Medicine 07/28/19 documented as of this encounter
--- OUTSIDE RECORDS SUMMARY | 2024-09-15 08:56 | External Medical Summary | Summary of Care ---
Author Name Unknown Organization [facility] Address [address] [facility] [address] Phone [phone] Care Team Providers Care Service Crew Leader Name Role Phone Edilia Kenyon MD Primary Care Provider + Reason for Visit * Reason Onset Date Comments Medication Refill 08/14/2024 Encounter Details Date Type Department Care Team (Late st Contact Info) Description 08/14/2024 Refill General Internal Medicine [facility] [address] [facility] [place] [id number] Edilia Kenyon MD 200 [place] [address] JAYLYN (generalized anxiety disorder); Chronic upper back [...] this encounter (statuses as of 08/16/2024) Medications Vitamin D3 100 MCG (4000 UT) Oral Capsule (Cholecalciferol) Take by mouth . Active Fluticasone Propionate 50 MCG/ACT Nasal Suspension (Flonase) Administer 1 [place] into nostril in the morning and 1 [place] before bedtime. 15.8 mL 3 10/15/19 23 [...] pill once daily as needed. 30 Tablet 01/04/20 24 Active DULoxetine HCl 30 MG [...] bedtime. 60 Tablet 11 02/22/20 24 Active Metoprolol Tartrate 25 MG [...] for Anxiety. 60 Tablet 07/06/19 25 Active Ondansetron HCl 4 MG Oral [...] Continued script 90 Tablet 08/16/19 25 Active LORazepam 0.5 MG Oral Tablet (Ativan)Indicatio ns:JAYLYN (generalized anxiety disorder) TAKE ONE TABLET BY MOUTH AT BEDTIME NEEDED FOR INSOMNIA 30 Tablet 07/20/19 25 025 Discontin ued(Refil l) oxyCODONE HCl 5 MG Oral Tablet (Oxy IR)Indications:Ch ronic upper back pain Take 1 Tablet by mouth every 8 hours as needed for Pain, Moderate. Continued script 90 Tablet 07/20/19 25 025 Discontin ued(Refil l) documented as [...] Telephone Encounter - Edilia Kenyon MD - 08/16/2024 2:03 PM ESTSigned Prescriptions: Disp Refills LORazepam 0.5 MG Oral Tablet (Ativan) 30 Tab*0 Sig: TAKE ONE TABLET BY MOUTH AT BEDTIME NEEDED FOR INSOMNIA Authorizing Provider: EDILIA KENYON oxyCODONE HCl 5 MG Oral Tablet (Oxy IR) 90 Tab*0 Sig: Take 1 Tablet by mouth every 8 hours as needed for Pain, Moderate. Continued script Authorizing Provider: EDILIA KENYON * Telephone Encounter - Angelica Ponce auto rental clerk - 08/15/2024 4:49 PM EST Patient calling to check on status of Lorazepam . Caller can be reached at [phone]. Thank you, Angelica Ponce Conference Translator [facility] 08/15/2024, 4:49 PM * Telephone Encounter - Bryson Arthur [facility] - 08/15/2024 1:57 PM ESTPending Prescriptions: Disp Refills LORazepam 0.5 MG Oral Tablet (Ativan) 30 Tab*0 Sig: TAKE ONE TABLET BY MOUTH AT BEDTIME NEEDED FOR INSOMNIA oxyCODONE HCl 5 MG Oral Tablet (Oxy IR) 90 Tab*0 Sig: Take 1 Tablet by mouth every 8 hours as needed for Pain, Moderate. Continued script --- * Telephone Encounter - Bryson Arthur [facility] - 08/15/2024 1:56 PM EST I have reviewed the patients controlled substance dispensing history in the Prescription Drug Monitoring Program in compliance with the [facility] regulations before prescribing a controlled substance. PDMP checked on 08/15/2024. Pending Prescriptions: Disp Refills LORazepam 0.5 MG Oral Tablet (Ativan) 30 Tab*0 Sig: TAKE ONE TABLET BY MOUTH AT BEDTIME NEEDED FOR INSOMNIA oxyCODONE HCl 5 MG Oral Tablet (Oxy IR) 90 Tab*0 Sig: Take 1 Tablet by mouth every 8 hours as needed for Pain, Moderate. Continued script Last Visit: 07/20/2024 (in office), Visit date not found (telemedicine) Next Visit: 08/30/2024 Date medication was last filled: 07/20/2024 Date medication is due for refill: 08/18/2024 Pharmacy: [id number] [place] Is this request for a controlled substance? Yes and Urine Drug Screen Not completed Toxicology results: Results for orders placed [...] (A) Specimen Validity Interpretation Normal Creatinine, U 83 Narrative Cutoff [...] in Results Review. Please approve if appropriate. Thanks, Bryson Arthur Pharm.D. Clinical Pharmacist [facility] ([facility]) [phone] 08/15/2024, 1:56 PM documented in this encounter Plan of Treatment Upcoming Encounters Date Type Department Care Team (Late st Contact Info) Description 08/24/2024 11:40 AM EST Office Visit Nephrology, [facility] [address] [facility] [place] [address] Jordyn Santillan MD 200 [facility] [place] [address] 08/30/2024 1:40 PM EDT Office Visit General Internal Medicine [facility] [address] [facility] [place] [address] Edilia Kenyon MD 200 [facility] [place] [address] 10/30/2024 10:00 AM EDT Office Visit Ophthalmology, [facility] [address] [place] [address] Hector Lopez T, DO [address] [place] [address] 01/15/2025 3:30 PM EDT Office Visit Cardiology, [facility] 132 [facility] [place] [address] Kvng Choudhary PA-C [address] [facility] [place] [address] Health Maintenance Due Date Last Done Comments Adult Wellness Visit 2005 Zoster Vaccines (2 of 3) 07/23/2009 05/28/2009 HbA1c 09/01/2023 08/31/2022, 02/20, 09/04/2019 COVID-19 Vaccine ( season) 2024 08/20/2020, 07/30/2020 CKD PHOS USE SMARTSET 11713 05/04/202404/21, 12/17/2021, 08/20/2021, Additional history exists Albumin/Creatinine Ratio 05/06/2024 023, 04/09/2016, 02/20/2015 *BISPHONATE OR OTHER ACCEPTABLE MEDICATION NEEDED FOR OSTEOPOROSIS (REFER TO SMARTSET #1146) 05/09/2024 Depression Monitoring 01/17/2025 01/18/2024 DXA Scan 04/21/2025 04/21/2023, 06/2022, 08/16/2019, Additional history exists CKD HGB USE SMARTSET 93714 07/20/202507/20, 07/20/2024, 06/23/2024, Additional history exists DTap/Tdap Vaccines (3 - Td or Tdap) 05/06/2033 05/06/2023, 09/29/2011 Hepatitis B Vaccine Completed 11/03/2002, 06/05/2002, 05/05/2002 Pneumococcal Vaccine: 50+ Years Completed 09/13/2014, 05/21/2006 Influenza Vaccine (FLU shot) Completed , 03/19/2023, 02/26/2022, Additional history exists VITAMIN D LEVEL ONCE IN A LIFETIME-USE SMARTSET# 55612 Completed 07/20/2024, 05/04/2023, 12/17/2021, Additional history exists [...] Documents on File Type Date Recorded Patient Research Animal Attendant Expl anation Advance Directives and Livin g Will 12/25/2018 LIVING WILL Power of Hr Business Partner Consultant 12/25/2018 POWER OF A TTORNEY Care Teams Service Crew Leader Relationship Specialty Start Date End Date Edilia Kenyon MD 200 [place] [address] PCP - General Internal Medicine 07/28/19 documented as of this encounter
--- OUTSIDE RECORDS SUMMARY | 2024-09-15 08:57 | External Medical Summary ---
Author Name Unknown Address Unknown Organization K09[facility] [place] [address] Laboratory Report Ordering Provider Test Date Status DEVANTE JUAREZ 07/20/2024 12:24:02 Final Observation Date Value Abnormality Reference (Units ) Status WBC, Total 07/20/2024 12:24:02 8.86 4.00-10.8 0 (K/uL) Final RBC 07/20/2024 12:24:02 3.64 3.85-5.15 (M/uL) Final Hemoglobin 07/20/2024 12:24:02 11.2 Below low normal 12 .0-15.3 (g/dL) Final HCT 07/20/2024 12:24:02 33.9 Below low normal 36. 0-45.2 (%) Final MCV 07/20/2024 12:24:02 93.1 81.5-97.5 (fL) Final MCH 07/20/2024 12:24:02 30.8 27.0-34.0 (pg) Final MCHC 07/20/2024 12:24:02 33.0 32.0-36.0 (g/dL) Final RDW 07/20/2024 12:24:02 12.4 11.5-15.5 (%) Final Platelets 07/20/2024 12:24:02 332 140-400 (K /uL) Final MPV 07/20/2024 12:24:02 8.8 6.6-11.1 ( fL) Final Performing Location [facility] [place] [address]
--- OUTSIDE RECORDS SUMMARY | 2024-09-15 08:57 | External Medical Summary | Summary of Care ---
Author Name Unknown Organization [facility] Address [address] [facility] [address] Phone [phone] Care Team Providers Care Outpatient Psychiatrist Name Role Phone Edilia Kenyon MD Primary Care Provider + Reason for Visit * Reason Comments Outpatient Testing Encounter Details Date Type Department Care Team (Late st Contact Info) Description 07/20/2024 12:20 PM EST Laboratory Laboratory [facility] [address] [place] [address] [facility] [address] [facility] [address] [place] [address] Loss of weight; Iron deficiency anemia, unspecified iron deficiency anemia type; Vitamin D deficiency Allergies Active Allergy Reactions Criticality Noted Date [...] 50 MCG/ACT Nasal Suspension (Flonase) Administer 1 [place] into nostril in the morning and 1 [place] before bedtime. 15.8 mL 3 3 Active [...] 11:40 AM EST Office Visit Nephrology, [facility] [address] [place] [address] Jordyn Santillan MD [address] [place] [address] 08/30/2024 1:40 PM EDT Office Visit General Internal Medicine [facility] [address] [place] [address] Edilia Kenyon MD [address] [place] [address] 10/30/2024 10:00 AM EDT Office Visit Ophthalmology, [facility] [address] [place] [address] Hector Lopez, [address] [facility] [place] [address] 01/15/2025 3:30 PM EDT Office Visit Cardiology, [facility] [address] [place] [place] [address] Kvng Choudhary PA-C [address] [place] [address] Pending Results Name Type Priority Associated Diagnoses Date /Time ERYTHROCYTE SEDIMENTATION RATE (ESR) Lab Routine Loss of weight 07/20/2024 12:24 PM EST CRP (INFLAMMATORY MARKER) Lab Routine Loss of weight 07/20/2024 12:24 PM EST FERRITIN Lab Routine Iron deficiency anemia, unspecified iron deficiency anemia type 07/20/2024 12:24 PM EST IRON SCREEN, INCLUDING TIBC Lab Routine Iron deficiency anemia, unspecified iron deficiency anemia type 07/20/2024 12:24 PM EST 25-HYDROXY VITAMIN D Lab Routine Vitamin D deficiency 07/20/2024 12:24 PM EST Health Maintenance Due Date Last Done Comments Adult Wellness Visit 2005 Zoster Vaccines (2 of 3) 07/23/2009 05/28/2009 HbA1c 09/01/2023 08/31/2022, 02/20, 09/04/2019 COVID-19 Vaccine ( season) 2024 08/20/2020, 07/30/2020 CKD PHOS USE SMARTSET 52524 05/04/202404/21, 12/17/2021, 08/20/2021, Additional history exists Albumin/Creatinine Ratio 05/06/2024 023, 04/09/2016, 02/20/2015 *BISPHONATE OR OTHER ACCEPTABLE MEDICATION NEEDED FOR OSTEOPOROSIS (REFER TO SMARTSET #1146) 05/09/2024 Depression Monitoring 01/17/2025 01/18/2024 GFR 01/17/2025 07/20/2024, 04/21, 08/31/2022, Additional history exists DXA Scan 04/21/2025 04/21/2023, 06/2022, 08/16/2019, Additional history exists CKD HGB USE SMARTSET 20813 07/20/202507/20, 07/20/2024, 06/23/2024, Additional history exists DTap/Tdap Vaccines (3 - Td or Tdap) 05/06/2033 05/06/2023, 09/29/2011 Hepatitis B Vaccine Completed 11/03/2002, 06/05/2002, 05/05/2002 Pneumococcal Vaccine: 50+ Years Completed 09/13/2014, 05/21/2006 VITAMIN D LEVEL ONCE IN A LIFETIME-USE SMARTSET# 94341 Completed 05/04/2023, 12/17/2021, 03/25/2020, Additional history exists Influenza Vaccine (FLU shot) [...] Procedure Name Priority Date/Time Associated Diagnosis Comments DIFFERENTIAL, AUTOMATED Routine 07/20/2024 12:24 PM EST Loss of weight COMPREHENSIVE METABOLIC PANEL Routine 07/20/2024 12:24 PM EST Loss of weight CBC Routine 07/20/2024 12:24 PM EST Loss of weight CBC Routine 07/20/2024 12:24 PM EST Loss of weight documented in this encounter Results * (ABNORMAL) DIFFERENTIAL, AUTOMATED (07/20/2024 12:24 PM EST) WBC 8.86 4.00 - 10.80 K/uL 07/20/2024 12:38 PM EST [facility]-02 Neutrophils % 76.7(H) 40.0 - 75.0 % 07/20/2024 12:38 PM EST [facility]-02 Lymphocytes % 14.9(L) 18.0 - 42.0 % 07/20/2024 12:38 PM EST [facility] 56-02 Monocytes % 8.2 1.0 - 11.0 % 07/20/2024 12:38 PM EST [facility] 56-02 Eosinophils % 0.0 0.0 - 6.0 % 07/20/2024 12:38 PM EST [facility] 56-02 Basophils % 0.2 0.0 - 2.0 % 07/20/2024 12:38 PM EST [facility] 56 Absolute Neutrophils 6.79 1.80 - 7.70 K/uL 07/20/2024 12:38 PM EST [facility] 56 Absolute Lymphocytes 1.32 1.00 - 4.80 K/ul 07/20/2024 12:38 PM EST [facility] 56 Absolute Monocytes 0.73 0.00 - 1.10 K/uL 07/20/2024 12:38 PM EST [facility] 56 Absolute Eosinophils 0.00 0.00 - 0.70 K/uL 07/20/2024 12:38 PM EST [facility] 56 Absolute Basophils 0.02 0.00 - 0.20 K/uL 07/20/2024 12:38 PM [facility] 56 Blood Venous blood specimen / Unknown Venipuncture / Unknown 07/20/2024 12:24 PM EST 07/20/2024 12:24 PM EST Edilia Kenyon MD LAB BLOOD ORDERABLES Fin al Result [facility] 56- [address] [place] [address] * (ABNORMAL) CBC (07/20/2024 12:24 PM EST) WBC 8.86 4.00 - 10.80 K/uL 07/20/2024 12:38 PM EST [facility] RBC 3.64 3.85 - 5.15 M/uL 07/20/2024 12:38 PM [facility] 56 HGB 11.2(L) 12.0 - 15.3 g/dL 07/20/2024 12:38 PM EST [facility] 56- HCT 33.9(L) 36.0 - 45.2 % 07/20/2024 12:38 PM [facility] 56- MCV 93.1 81.5 - 97.5 fL 07/20/2024 12:38 PM EST [facility] 56 MCH 30.8 27.0 - 34.0 pg 07/20/2024 12:38 PM [facility] 56 MCHC 33.0 32.0 - 36.0 g/dL 07/20/2024 12:38 PM EST [facility] 56 RDW 12.4 11.5 - 15.5 % 07/20/2024 12:38 PM [facility] 56 PLT 332 140 - 400 K/uL 07/20/2024 12:38 PM [facility] 56 MPV 8.8 6.6 - 11.1 fL 07/20/2024 12:38 PM [facility] 56 Blood Venous blood specimen / Unknown Venipuncture / Unknown 07/20/2024 12:24 PM EST 07/20/2024 12:24 PM EST Edilia Kenyon MD LAB BLOOD ORDERABLES Fin al Result [facility] [address] [place] [address] * (ABNORMAL) COMPREHENSIVE METABOLIC PANEL (07/20/2024 12:24 PM EST) BUN 23(H) 6 - 20 mg/dL 07/20/2024 1:[address] CREATININE 1.0 0.5 - 1.0 mg/dL 07/20/2024 1:53 PM [facility] 56 EGFR 54(L) >=60 mL/min 07/20/2024 1:53 PM [facility] 56 Comment:eGFR is calculated b ased on the CKD-EPI 2020 equation. SODIUM 136 135 - 146 mmol/L 07/20/2024 1:53 PM [facility] 56- POTASSIUM 4.9 3.5 - 5.1 mmol/L 07/20/2024 1:53 PM [facility] 56- CHLORIDE 99 98 - 107 mmol/L 07/20/2024 1:53 PM [facility] 56 CO2 27 22 - 32 mmol/L 07/20/2024 1:53 PM [facility] 56 ANION GAP 10 7 - 15 mmol/L 07/20/2024 1:53 PM [facility] 56-02 GLUCOSE 110 70 - 120 mg/dL 07/20/2024 1:53 PM [facility] 56-02 Albumin 4.3 3.8 - 5.0 g/dL 07/20/2024 1:53 PM [facility] 56-02 AST 31 10 - 35 U/L 07/20/2024 1:53 PM [facility] 56-02 Alkaline Phosphatase 48 35 - 130 U/L 07/20/2024 1:53 PM [facility] 56-02 Bilirubin, Total 0.3 <=1.2 mg/dL 07/20/2024 1:53 PM [facility] 56-02 CALCIUM 9.9 8.4 - 10.2 mg/dL 07/20/2024 1:53 PM [facility] 56-02 Protein 6.8 6.0 - 8.3 g/dL 07/20/2024 1:53 PM [facility] 56-02 ALT 15 10 - 35 U/L 07/20/2024 1:53 PM [facility] 56-02 Blood Venous blood specimen / Unknown Venipuncture / Unknown 07/20/2024 12:24 PM EST 07/20/2024 12:24 PM EST Edilia Kenyon MD LAB BLOOD ORDERABLES Fin al Result Performing Organization Address City/State/[facility] Co de Phone Number [facility]- [address] [facility] [address] documented in this encounter Visit Diagnoses Diagnosis Loss of weight Iron deficiency anemia, unspecified iron deficiency anemia type Vitamin D deficiency Unspecified vitamin D deficiency documented in this encounter Advance Directives Documents on File Type Date Recorded 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
--- OUTSIDE RECORDS SUMMARY | 2024-09-15 08:57 | External Medical Summary | Summary of Care ---
Author Name Unknown Organization [facility] Address [address] [facility] [place] [address] Phone [phone] Care Team Providers Care Model And Pattern Supervisor Name Role Phone Edilia Kenyon MD Primary Care Provider + Reason for Visit * Reason Comments Acute Encounter Details Date Type Department Care Team (Latest Contact Info) Description 07/20/2024 10:40 AM EST Office Visit General Internal Medicine [facility] 200 [facility] [place] [phone] Edilia Kenyon MD 200 [place] [address] Moderate episode of recurrent major depressive disorder (HCC)*; Opioid dependence, uncomplicated (HCC); Pulmonary arterial hypertension (HCC); Hypertrophic cardiomyopathy (HCC); 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 15.8 mL 3 3 Active [...] mRNA, LNP-s, No Pre serve, 2-Dose Series (Peela) 08/20/2020,07/30/2020 Hepatitis B, 20+ yrs 11/03/2002,06/05/2002,05/05 Pneumococcal [...] No 01/18/2024 Does the household have a [facility] source of income? (Household - for [...] Sign Reading Time Taken Comments Blood Pressure 110/62 07/20/2024 11:20 AM EST Pulse 64 07/20/2024 11:20 AM EST Temperature 37.2 C (99 F) 07/20/2024 11:20 AM EST Respiratory Rate - - Oxygen Saturation 99% 07/20/2024 11:20 AM EST Inhaled Oxygen Concentration - - Weight 47.9 kg (105 lb 9.6 oz) 07/20/2024 11:20 AM EST Height 152.4 cm (5') 07/20/2024 11:20 AM EST Body Mass Index 20.62 07/20/2024 11:20 AM EST documented in this encounter Progress Notes * Edilia Kenyon MD - 07/20/2024 11:29 AM EST Images from the original note were not included. History of Present Illness Edith Guerra is a 83 year old female that presents for Acute Patient is here for the recheck. Chart reviewed with the patient including current meds, last labs and HM. No acute event since we saw her last time including no recent fall or injuries. States she has headache, overall not feeling well. Thinks feels upset, angry with herself. Feels sad and sometimes headache+ Has hx of migraine. No vision changes, weakness. Sees pain management and had back ablation yesterday by Dr. Padilla. Have pain in multiple jointpains. Weight loss+ Takes Lexapro 30 mg daily and cymbalta 30 mg daily. Discussed seeing counsellor and psychiatrist but states doesn't prefer at this time. States have tried few othe rmeds, doesn't remember names but didn't help her. Physical Exam Vitals: 07/20/24 1120 Temp: 99 F (37.2 C) Pulse: 64 SpO2: 99% BP: 110/62 BMI: 20.62 BP Readings from Last 3 Encounters: 07/20/24 110/62 04/13/24 108/62 01/04/24 110/60 Wt Readings from Last 3 Encounters: 07/20/24 105 lb 9.6 oz (47.9 kg) 04/13/24 109 lb 8 oz (49.7 kg) 01/04/24 108 lb 3.2 oz (49.1 kg) BMI Readings from Last 3 Encounters: 07/20/24 20.62 kg/m 04/13/24 21.39 kg/m 01/04/24 21.13 kg/m Ht Readings from Last 3 Encounters: 07/20/24 5' (1.524 m) 04/13/24 5' (1.524 m) 01/04/24 5' (1.524 m) HEENT: PERRLA, EOMI, anicteric sclera, no lymphadenopathy, neck supple CVS: RRR, no murmurs, rubs or gallops, s1 s 2normal. RESP: clear to auscultation, no wheezing or crackles EXT: no edema, cyanosis, peripheral pulses palpable bilaterally No large joint swelling, no redness, range of motion normal. Skin normal. Gait normal. Mood stable No focal weakness I have reviewed the following results: CMP, TSH, and CBC Assessment and Plan Moderate episode of recurrent major depressive disorder (HCC) (Primary) Feels depressed. Continue current meds. Doesn't prefer psych referral. Opioid dependence, uncomplicated (HCC) - PAIN MANAGEMENT DRUG PANEL, URINE W/ INTERPRETATION; Future; Expected date: 07/20/2024 Pulmonary arterial hypertension (HCC) Hypertrophic cardiomyopathy (HCC) Stable. 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 Migraine without aura, intractable JAYLYN (generalized anxiety disorder) On buspar. HTN, goal below 140/90 Well controlled. Age-related osteoporosis without current pathological fracture Fall precautions advised. Dyslipidemia, goal LDL below 130 On statin. Tension-type headache, not intractable, unspecified chronicity pattern Loss of weight - CBC WITH WBC DIFFERENTIAL; Future; Expected date: 07/20/2024 - COMPREHENSIVE METABOLIC PANEL; Future; Expected date: 07/20/2024 - ERYTHROCYTE SEDIMENTATION RATE (ESR); Future; Expected date: 07/20/2024 - CRP (INFLAMMATORY MARKER); Future; Expected date: 07/20/2024 Advised high protein and ensure or boost advised. Wrap-Up Time: I spent a total of 30-39 minutes (exact time 30 mins) on the date of service in preparation, delivery, and documentation of the care provided to Edith Guerra excluding any time spent in the performance of separately billed services. documented in this encounter Nursing Notes * Cyndee Ibanez CMA - 07/20/2024 11:19 AM EST Patient presents today due to "not feeling right". She is concerned that she may need a change to her medication. She is having constant headaches and feeling "off". She feels that her antidepressantis the problem. documented in this encounter Plan of Treatment Upcoming Encounters Date Type Department Care Team (Late st Contact Info) Description 08/24/2024 11:40 AM EST Office Visit Nephrology, [facility] 200 [facility] [place] [address] Jordyn Santillan MD 200 [facility] [place] [address] 08/30/2024 1:40 PM EDT Office Visit General Internal Medicine [facility] [address] [facility] [address] [place] [address] Edilia Kenyon MD 200 [facility] [place] [address] 10/30/2024 10:00 AM EDT Office Visit Ophthalmology, [facility] 132 [facility] [place] [address] Hector Lopez, [address] [place] [address] 01/15/2025 3:30 PM EDT Office Visit Cardiology, [facility] 132 [facility] [place] [address] Kvng Choudhary PA-C [address] [place] [address] Pending Results Name Type Priority Associated Diagnoses [...] Vitamin D deficiency 07/20/2024 12:24 PM EST Scheduled Orders Name Type Priority Associated Diagnoses Orde r Schedule PAIN MANAGEMENT DRUG PANEL, URINE W/ INTERPRETATION Lab Routine Opioid dependence, uncomplicated (HCC) Expected: 07/20/2024 (Approximate), Expires: 07/20/2025 ERYTHROCYTE SEDIMENTATION RATE (ESR) Lab Routine Loss of weight Expected: 07/20/2024 (Approximate), Expires: 07/20/2025 CRP (INFLAMMATORY MARKER) Lab Routine Loss of weight Expected: 07/20/2024 (Approximate), Expires: 07/20/2025 FERRITIN Lab Routine Iron deficiency anemia, unspecified iron deficiency anemia type Expected: 07/20/2024 (Approximate), Expires: 07/20/2025 IRON SCREEN, INCLUDING TIBC Lab Routine Iron deficiency anemia, unspecified iron deficiency anemia type Expected: 07/20/2024 (Approximate), Expires: 07/20/2025 25-HYDROXY VITAMIN D Lab Routine Vitamin D deficiency Expected: 07/20/2024 (Approximate), Expires: 07/20/2025 Health Maintenance Due Date Last Done Comments Adult Wellness Visit 2005 Zoster Vaccines (2 of 3) 07/23/2009 05/28/2009 HbA1c 09/01/2023 08/31/2022, 02/20, 09/04/2019 GFR 11/02/2023 07/20/2024, 04/21, 08/31/2022, Additional history exists COVID-19 Vaccine ( season) 2024 08/20/2020, 07/30/2020 CKD PHOS USE SMARTSET 51389 05/04/202404/21, 12/17/2021, 08/20/2021, Additional history exists Albumin/Creatinine Ratio 05/06/2024 023, 04/09/2016, 02/20/2015 *BISPHONATE OR OTHER ACCEPTABLE MEDICATION NEEDED FOR OSTEOPOROSIS (REFER TO SMARTSET #1146) 05/09/2024 Depression Monitoring 01/17/2025 01/18/2024 DXA Scan 04/21/2025 04/21/2023, 06/2022, 08/16/2019, Additional history exists CKD HGB USE SMARTSET 56162 06/23/202507/20, 07/20/2024, 06/23/2024, Additional history exists DTap/Tdap Vaccines (3 - Td or Tdap) 05/06/2033 05/06/2023, 09/29/2011 Hepatitis B Vaccine Completed 11/03/2002, 06/05/2002, 05/05/2002 Pneumococcal Vaccine: 50+ Years Completed 09/13/2014, 05/21/2006 VITAMIN D LEVEL ONCE IN A LIFETIME-USE SMARTSET# 11407 Completed 05/04/2023, 12/17/2021, 03/25/2020, Additional history exists [...] Not on filedocumented as of this encounter Results * (ABNORMAL) COMPREHENSIVE METABOLIC PANEL (07/20/2024 12:24 PM EST) BUN 23(H) 6 - 20 mg/dL 07/20/2024 1:53 PM EST [facility] 56- CREATININE 1.0 0.5 - 1.0 mg/dL 07/20/2024 1:53 PM EST [facility] 56-02 EGFR 54(L) >=60 mL/min 07/20/2024 1:53 PM EST [facility] 56- Comment:eGFR is calculated b ased on the CKD-EPI 2020 equation. SODIUM 136 135 - 146 mmol/L 07/20/2024 1:53 PM EST [facility] 56-02 POTASSIUM 4.9 3.5 - 5.1 mmol/L 07/20/2024 1:53 PM EST [facility] 56-02 CHLORIDE 99 98 - 107 mmol/L 07/20/2024 1:53 PM EST [facility] 56-02 CO2 27 22 - 32 mmol/L 07/20/2024 1:53 PM EST [facility] [place] 56-02 ANION GAP 10 7 - 15 mmol/L 07/20/2024 1:53 PM EST [facility] 56-02 GLUCOSE 110 70 - 120 mg/dL 07/20/2024 1:53 PM EST [facility] 56- Albumin 4.3 3.8 - 5.0 g/dL 07/20/2024 1:53 PM EST [facility] [place] 56- AST 31 10 - 35 U/L 07/20/2024 1:53 PM EST [facility] 56- Alkaline Phosphatase 48 35 - 130 U/L 07/20/2024 1:53 PM EST [facility] 56- Bilirubin, Total 0.3 <=1.2 mg/dL 07/20/2024 1:53 PM EST [facility] 56- CALCIUM 9.9 8.4 - 10.2 mg/dL 07/20/2024 1:53 PM EST [facility] 56- Protein 6.8 6.0 - 8.3 g/dL 07/20/2024 1:53 PM EST [facility] 56- ALT 15 10 - 35 U/L 07/20/2024 1:53 PM EST [facility] 56-02 Blood Venous blood specimen / Unknown Venipuncture / Unknown 07/20/2024 12:24 PM EST 07/20/2024 12:24 PM EST Edilia Kenyon MD LAB BLOOD ORDERABLES Fin al Result [facility] 56- [address] [place] [address] documented in this encounter Visit Diagnoses Diagnosis Moderate episode of recurrent major depressive disorder (HCC)- Primary Opioid dependence, uncomplicated (HCC) Pulmonary arterial hypertension (HCC) Other chronic pulmonary heart diseases Hypertrophic cardiomyopathy (HCC) Other hypertrophic cardiomyopathy 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) Migraine without aura, intractable Migraine without aura, with intractable migraine, so stated, without mention of status migrainosus JAYLYN (generalized anxiety disorder) Generalized anxiety disorder HTN, goal below 140/90 Unspecified essential hypertension Age-related osteoporosis without current pathological fracture Senile osteoporosis Dyslipidemia, goal LDL below 130 Other and unspecified hyperlipidemia Tension-type headache, not intractable, unspecified chronicity pattern Loss of weight Iron deficiency anemia, unspecified iron deficiency anemia type Vitamin D deficiency Unspecified vitamin D deficiency documented in this encounter Advance Directives Documents on File Type Date Recorded 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
--- OUTSIDE RECORDS SUMMARY | 2024-09-15 08:57 | External Medical Summary | Summary of Care ---
Author Name Unknown Organization [facility] Address [address] [place] [address] Phone [phone] Care Team Providers Care Charge Account Authorizer Name Role Phone Edilia Kenyon MD Primary Care Provider + Reason for Visit * Reason Comments Acute Encounter Details Date Type Department Care Team (Latest Contact Info) Description 07/20/2024 10:40 AM EST Office Visit General Internal Medicine [facility] 200 [facility] [place] [id number] Edilia Kenyon MD 200 [place] [address] Moderate episode of recurrent major depressive disorder [...] 50 MCG/ACT Nasal Suspension (Flonase) Administer 1 Julian into nostril in the morning and 1 Julian before bedtime. 15.8 mL 3 3 Active [...] mRNA, LNP-s, No Pre serve, 2-Dose Series (Stadius) 08/20/2020,07/30/2020 Hepatitis B, 20+ yrs 11/03/2002,06/05/2002,05/05 Pneumococcal [...] No 01/18/2024 Does the household have a [facility] source of income? (Household - for ages [...] 08/24/2024 11:40 AM EST Office Visit Nephrology, [facility] 200 [facility] [place] [address] Jordyn Santillan MD 200 [facility] [place] [address] 08/30/2024 1:40 PM EDT Office Visit General Internal Medicine [facility] 200 [facility] [place] [address] Edilia Kenyon MD 200 [facility] [place] [address] 10/30/2024 10:00 AM EDT Office Visit Ophthalmology, [facility] [address] [place] [address] Hector Lopez, [address] [place] [address] 01/15/2025 3:30 PM EDT Office Visit Cardiology, [facility] [address] [place] [address] Kvng Choudhary PA-C [address] [place] [address] Pending Results Name Type Priority Associated Diagnoses [...] 2024 08/20/2020, 07/30/2020 CKD PHOS USE SMARTSET 10039 05/04/202404/21, 12/17/2021, 08/20/2021, Additional history exists Albumin/Creatinine Ratio 05/06/2024 023, 04/09/2016, 02/20/2015 *BISPHONATE OR OTHER ACCEPTABLE MEDICATION NEEDED FOR OSTEOPOROSIS (REFER TO SMARTSET #1146) 05/09/2024 Depression Monitoring 01/17/2025 01/18/2024 DXA Scan 04/21/2025 04/21/2023, 06/2022, 08/16/2019, Additional history exists CKD HGB USE SMARTSET 98394 06/23/202507/20, 07/20/2024, 06/23/2024, Additional history exists DTap/Tdap Vaccines (3 - Td or Tdap) 05/06/2033 05/06/2023, 09/29/2011 Hepatitis B Vaccine Completed 11/03/2002, 06/05/2002, 05/05/2002 Pneumococcal Vaccine: 50+ Years Completed 09/13/2014, 05/21/2006 VITAMIN D LEVEL ONCE IN A LIFETIME-USE SMARTSET# 78252 Completed 05/04/2023, 12/17/2021, 03/25/2020, Additional history exists [...] mg/dL 07/20/2024 1:53 PM EST [facility] 56- CREATININE 1.0 0.5 - 1.0 mg/dL 07/20/2024 1:53 PM EST [facility] [place] 56-02 EGFR 54(L) >=60 mL/min 07/20/2024 1:53 PM EST [facility] 56- Comment:eGFR is calculated b ased on the CKD-EPI 2020 equation. SODIUM 136 135 - 146 mmol/L 07/20/2024 1:53 PM EST [facility] 56-02 POTASSIUM 4.9 3.5 - 5.1 mmol/L 07/20/2024 1:53 PM EST [facility] [place] 56-02 CHLORIDE 99 98 - 107 mmol/L 07/20/2024 1:53 PM EST [facility] 56-02 CO2 27 22 - 32 mmol/L 07/20/2024 1:53 PM EST LABORATORY [place] 56-02 ANION GAP 10 7 - 15 mmol/L 07/20/2024 1:53 PM EST [facility] 56-02 GLUCOSE 110 70 - 120 mg/dL 07/20/2024 1:53 PM EST [facility] 56- Albumin 4.3 3.8 - 5.0 g/dL 07/20/2024 1:53 PM EST [facility] [place] 56- AST 31 10 - 35 U/L 07/20/2024 1:53 PM EST [facility] [place] 56- Alkaline Phosphatase 48 35 - 130 U/L 07/20/2024 1:53 PM EST [facility] 56- Bilirubin, Total 0.3 <=1.2 mg/dL 07/20/2024 1:53 PM EST [facility]ORY [place] 56- CALCIUM 9.9 8.4 - 10.2 mg/dL 07/20/2024 1:53 PM EST [facility] 56- Protein 6.8 6.0 - 8.3 g/dL 07/20/2024 1:53 PM EST [facility] 56- ALT 15 10 - 35 U/L 07/20/2024 1:53 PM EST [facility] 56-02 Blood Venous blood specimen / Unknown Venipuncture / Unknown 07/20/2024 12:24 PM EST 07/20/2024 12:24 PM EST Edilia Kenyon MD LAB BLOOD ORDERABLES Fin al Result [facility] 56- [address] [place] [address] documented in this encounter Visit Diagnoses Diagnosis [...] Documents on File Type Date Recorded 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
--- OUTSIDE RECORDS SUMMARY | 2024-09-15 08:57 | External Medical Summary | Summary of Care ---
Author Name Unknown Organization [facility] Address [address] [place] [address] Phone [phone] Care Team Providers Care Bookkeeping Service Sales Agent Name Role Phone Edilia Kenyon MD Primary Care Provider + Reason for Visit * Reason Onset Date Comments Medication Refill 07/18/2024 Encounter Details Date Type Department Care Team (Late st Contact Info) Description 07/18/2024 Refill General Internal Medicine [facility] 200 [facility] [place] [address] Edilia Kenyon MD 200 [place] [address] JAYLYN (generalized anxiety disorder); Chronic upper back [...] this encounter (statuses as of 07/20/2024) Medications Vitamin D3 100 MCG (4000 UT) Oral Capsule (Cholecalciferol) Take by mouth . Active Fluticasone Propionate 50 MCG/ACT Nasal Suspension (Flonase) Administer 1 [place] into nostril in the morning and 1 [place] before bedtime. 15.8 mL 3 10/15/19 23 [...] FOR NAUSEA 50 Tablet 1 05/19/20 24 Active hydrOXYzine HCl 25 MG Oral [...] Continued script 90 Tablet 07/20/19 25 Active LORazepam 0.5 MG Oral Tablet (Ativan)Indicatio ns:JAYLYN (generalized anxiety disorder) TAKE ONE TABLET BY MOUTH AT BEDTIME NEEDED FOR INSOMNIA 30 Tablet 06/23/19 25 025 Discontin ued(Refil l) oxyCODONE HCl 5 MG Oral Tablet (Oxy IR)Indications:Ch ronic upper back pain Take 1 Tablet by mouth every 8 hours as needed for Pain, Moderate. Continued script 90 Tablet 06/23/19 25 025 Discontin ued(Refil l) documented as of this encounter (statuses as of 07/20/2024) Active Problems Problem Noted Date Diagnosed Date Primary osteoarthritis involving multiple joints 04/13/2024 Chronic [...] Telephone Encounter - Edilia Kenyon MD - 07/20/2024 8:40 AM ESTSigned Prescriptions: Disp Refills LORazepam 0.5 MG Oral Tablet (Ativan) 30 Tab*0 Sig: TAKE ONE TABLET BY MOUTH AT BEDTIME NEEDED FOR INSOMNIA Authorizing Provider: EDILIA KENYON oxyCODONE HCl 5 MG Oral Tablet (Oxy IR) 90 Tab*0 Sig: Take 1 Tablet by mouth every 8 hours as needed for Pain, Moderate. Continued script Authorizing Provider: EDILIA KENYON * Telephone Encounter - Becca Fuchs [facility] - 07/19/2024 1:29 PM ESTPending Prescriptions: Disp Refills LORazepam 0.5 MG Oral Tablet (Ativan) 30 Tab*0 Sig: TAKE ONE TABLET BY MOUTH AT BEDTIME NEEDED FOR INSOMNIA oxyCODONE HCl 5 MG Oral Tablet (Oxy IR) 90 Tab*0 Sig: Take 1 Tablet by mouth every 8 hours as needed for Pain, Moderate. Continued script --- * Telephone Encounter - Becca Fuchs [facility] - 07/19/2024 1:28 PM EST I have reviewed the patients controlled substance dispensing history in the Prescription Drug Monitoring Program in compliance with the [facility] regulations before prescribing a controlled substance. PDMP checked on 07/19/2024. Pending Prescriptions: Disp Refills LORazepam 0.5 MG Oral Tablet (Ativan) 30 Tab*0 Sig: TAKE ONE TABLET BY MOUTH AT BEDTIME NEEDED FOR INSOMNIA oxyCODONE HCl 5 MG Oral Tablet (Oxy IR) 90 Tab*0 Sig: Take 1 Tablet by mouth every 8 hours as needed for Pain, Moderate. Continued script Last Visit: 04/13/2024 (in office), Visit date not found (telemedicine) Next Visit: 07/20/2024 Date medication was last filled: 06/23 - both meds Date medication is due for refill: 07/22 Pharmacy: [facility] [address] [place], [place] [address] [facility] Is this request for a controlled substance? [...] Review. Please approve if appropriate. Thank you, Becca Fuchs PharmD Clinical Pharmacist [facility] ([facility]) [phone] 07/19/2024, 1:28 PM * Telephone Encounter - Antione Stover bottle label inspector - 07/18/2024 3:52 PM EST Did you pend patient's preferred pharmacy and medication before forwarding?yes [facility]: [id number] [address] Pending Prescriptions: Disp Refills LORazepam 0.5 MG Oral Tablet (Ativan) 30 Tab*0 Sig: TAKE ONE TABLET BY MOUTH AT BEDTIME NEEDED FOR INSOMNIA oxyCODONE HCl 5 MG Oral Tablet (Oxy IR) 90 Tab*0 Sig: Take 1 Tablet by mouth every 8 hours as needed for Pain, Moderate. Continued script Last Visit: 04/13/2024 (in office), Visit date not found (telemedicine) Next Visit: Visit date not found If no future appointments scheduled, and last appointment is greater than a year ago, please schedule patient for a follow-up appointment Last date the medication was ordered: 06/23/2024 Is this request for a controlled substance?Yes, What was the last refill date 06/23/2024 w/ quantity 30 tabs, 90 tabs and dosage 0.5 mg, 5 mg and Urine Drug Screen Not completed [...] PM LDL 90 09/04/2019 03:31 PM ALT 17 05/04/2023 01:50 PM ALT 22 06/17/2020 03:13 PM HGBA1C 5.8 (H) 08/31/2022 10:23 AM HGBA1C 5.6 09/04/2019 03:31 PM documented in this encounter Plan of Treatment Upcoming Encounters Date Type Department Care Team (Late st Contact Info) Description 07/20/2024 10:40 AM EST Office Visit General Internal Medicine [facility] [place] [address] [place] [address] Edilia Kenyon MD [address] [facility] [place] [address] 08/24/2024 11:40 AM EST Office Visit Nephrology, [facility] [address] [place] [address] Jordyn Santillan MD [address] [place], [place] [address] 08/30/2024 1:40 PM EDT Office Visit General Internal [facility] [place] [address] [place] [address] Edilia Kenyon MD [address] [place] [address] 10/30/2024 10:00 AM EDT Office Visit Ophthalmology, [facility] [address] [facility] [place] [place] [address] Hector Lopez[facility] [address] 01/15/2025 3:30 PM EDT Office Visit Cardiology, [facility] [place] [address] Kvng Choudhary, PA-C [address] [place] [address] Health Maintenance Due Date Last Done Comments Adult Wellness Visit 2005 Zoster Vaccines (2 of 3) 07/23/2009 05/28/2009 HbA1c 09/01/2023 08/31/2022, 02/20, 09/04/2019 GFR 11/02/2023 05/04/2023, 08/19, 08/24/2022, Additional history exists COVID-19 Vaccine ( season) 2024 08/20/2020, 07/30/2020 CKD PHOS USE SMARTSET 06087 05/04/202404/21, 12/17/2021, 08/20/2021, Additional history exists Albumin/Creatinine Ratio 05/06/2024 023, 04/09/2016, 02/20/2015 *BISPHONATE OR OTHER ACCEPTABLE MEDICATION NEEDED FOR OSTEOPOROSIS (REFER TO SMARTSET #1146) 05/09/2024 Depression Monitoring 01/17/2025 01/18/2024 DXA Scan 04/21/2025 04/21/2023, 1106/2022, 08/16/2019, Additional history exists CKD HGB USE SMARTSET 63777 06/23/202506/23, 06/23/2024, 08/31/2022, Additional history exists DTap/Tdap Vaccines (3 - Td or Tdap) 05/06/2033 05/06/2023, 09/29/2011 Hepatitis B Vaccine Completed 11/03/2002, 06/05/2002, 05/05/2002 Pneumococcal Vaccine: 50+ Years Completed 09/13/2014, 05/21/2006 VITAMIN D LEVEL ONCE IN A LIFETIME-USE SMARTSET# 62329 Completed 05/04/2023, 12/17/2021, 03/25/2020, Additional history exists [...] Documents on File Type Date Recorded Patient Name Plate Stamper Expl anation Advance Directives and Livin g Will 12/25/2018 LIVING WILL Power of Collar Turner Operator 12/25/2018 POWER OF A TTORNEY Care Teams Bookkeeping Service Sales Agent Relationship Specialty Start Date End Date Edilia Kenoyn MD 200 [place] [address] PCP - General Internal Medicine 07/28/19 documented as of this encounter
--- OUTSIDE RECORDS SUMMARY | 2024-09-15 08:58 | External Medical Summary ---
Author Name Unknown Address Unknown Organization K09:[facility]-02 - [address] [place] [address] Laboratory Report Ordering Provider Test Date Status DEVANTE JUAREZ 07/20/2024 12:24:02 Final Observation Date Value Abnormality Reference (Units ) Status BUN 07/20/2024 12:24:02 23 Above high normal 6-20 (mg/dL) Final Creatinine 07/20/2024 12:24:02 1.0 0.5-1.0 (mg/dL) Final Glomerular filtration rate/1.73 sq M.predicted [Volume Rate/Area] in Serum, Plasma or Blood by Creatinine-based formula (CKD-EPI) 07/20/2024 12:24:02 54 Below low normal >=60 (mL/min) Final eGFR is calculated based on the CKD-EPI 2020 equation. Sodium 07/20/2024 12:24:02 136 135-146 (m mol/L) Final Potassium 07/20/2024 12:24:02 4.9 3.5-5.1 (m mol/L) Final Cl 07/20/2024 12:24:02 99 98-107 (mm ol/L) Final CO2 07/20/2024 12:24:02 27 22-32 (mmo l/L) Final Anion gap 07/20/2024 12:24:02 10 7-15 (mmol /L) Final Glucose 07/20/2024 12:24:02 110 70-120 (mg /dL) Final Albumin 07/20/2024 12:24:02 4.3 3.8-5.0 (g /dL) Final AST (Aspartate aminotransferase) 07/20/2024 12:24:02 31 10-35 (U/L) Final Alk Phos 07/20/2024 12:24:02 48 35-130 (U/ L) Final Bilirubin, Total 07/20/2024 12:24:02 0.3 <=1 .2 (mg/dL) Final Calcium 07/20/2024 12:24:02 9.9 8.4-10.2 ( mg/dL) Final Protein 07/20/2024 12:24:02 6.8 6.0-8.3 (g /dL) Final ALT (Alanine aminotransferase) 07/20/2024 12:24:02 15 10-35 (U/L) Final Performing Location [facility]- 02 - [address] [place] [address]
--- OUTSIDE RECORDS SUMMARY | 2024-09-15 08:58 | External Medical Summary ---
Author Name Unknown Address Unknown Organization [id number][facility] [place] [address] [place] [address] Laboratory Report Ordering Provider Test Date Status DEVANTE JUAREZ 07/20/2024 12:24:02 Final Deficient: <20 ng/mL
Ins ufficient: 20-29 ng/mL
Recommended/Optimum:30-50 ng/mL

Vitamin D intoxication is rare. If suspicious of Vitamin D toxicity, evaluation of serum Calcium and PTH is recommended. Observation Date Value Abnormality Reference (Units ) Status 25-OH Vitamin D total 07/20/2024 12:24:02 84 >19 (ng/mL) Final Performing Location [facility] [place] [address] [place] [address]
--- OUTSIDE RECORDS SUMMARY | 2024-09-15 08:58 | External Medical Summary ---
Author Name Unknown Address Unknown Organization [id number]:LAB[facility]ATORY [facility] [place] - [address] [place] [place] [address] Laboratory Report Ordering Provider Test Date Status DEVANTE JUAREZ 07/20/2024 12:24:02 Final Observation Date Value Abnormality Reference (Units ) Status CRP, low-sensitivity 07/20/2024 12:24:02 <3 <=5 (mg/L) Final Performing Location LABORATORY [facility] [place] - [address] [place] [address]
--- OUTSIDE RECORDS SUMMARY | 2024-09-15 08:58 | External Medical Summary ---
Author Name Unknown Address Unknown Organization K09:[facility] [place] [address] Laboratory Report Ordering Provider Test Date Status DEVANTE JUAREZ 07/20/2024 12:24:02 Final Observation Date Value Abnormality Reference (Units ) Status SYNC LEUKOCYTES IN BLOOD BY AUTOMATED COUNT 07/20/2024 12:24:02 8.86 4.00-10.80 (K/uL) Final Segs 07/20/2024 12:24:02 76.7 Above high normal 40.0-75.0 (%) Final Lymphs % 07/20/2024 12:24:02 14.9 Below low normal 18.0-42.0 (%) Final Monos 07/20/2024 12:24:02 8.2 1.0-11.0 (%) Final Eosinophils 07/20/2024 12:24:02 0.0 0.0-6.0 (%) Final Basos 07/20/2024 12:24:02 0.2 0.0-2.0 (%) Final Absolute Segs 07/20/2024 12:24:02 6.79 1.80-7.70 (K/uL) Final Lymphs, absolute 07/20/2024 12:24:02 1.32 1.00-4.80 (K/ul) Final Monos, Abs 07/20/2024 12:24:02 0.73 0.00-1.10 (K/uL) Final Eos, Abs 07/20/2024 12:24:02 0.00 0.00-0.70 (K/uL) Final Basos, Abs 07/20/2024 12:24:02 0.02 0.00-0.20 (K/uL) Final Performing Location [facility] [place] [address]
--- OUTSIDE RECORDS SUMMARY | 2024-09-15 08:58 | External Medical Summary ---
Author Name Unknown Address Unknown Organization K01:[facility] [place] [facility] [address] [place] [address] Laboratory Report Ordering Provider Test Date Status DEVANTE JUAREZ 07/20/2024 12:24:02 Final Observation Date Value Abnormality Reference (Units ) Status Iron 07/20/2024 12:24:02 88 33-151 (ug /dL) Final Iron-binding capacity 07/20/2024 12:24:02 331 250-425 (ug/dL) Final Transferrin Sat % 07/20/2024 12:24:02 27 15 -55 (%) Final Performing Location [facility] [place] [facility] [address] [place] [address]
--- OUTSIDE RECORDS SUMMARY | 2024-09-15 08:58 | External Medical Summary ---
Author Name Unknown Address Unknown Organization K01:[facility] [place] - [address] [place] [address] Laboratory Report Ordering Provider Test Date Status DEVANTE JUAREZ 07/20/2024 12:24:02 Final Observation Date Value Abnormality Reference (Units ) Status Ferritin 07/20/2024 12:24:02 530 Above high normal 13 -150 (ng/mL) Final Postmenopausal women have hi gher ferritin levels than pre-menopausal women. The above reference interval is based on pre-menopausal women. Performing Location [facility] [place] - [address] [place] [address]
--- OUTSIDE RECORDS SUMMARY | 2024-09-15 08:58 | External Medical Summary ---
Author Name Unknown Address Unknown Organization K01:[facility] [place] [facility] [address] [place] [address] Laboratory Report Ordering Provider Test Date Status DEVANTE JUAREZ 07/20/2024 12:24:02 Final Observation Date Value Abnormality Reference (Units ) Status Erythrocyte sedimentation rate by Photometric method 07/20/2024 12:24:02 5 <30 (mm/hour) Final Performing Location [facility] [place] [facility] [address] [place] [address]
[2024-09-15] MEDS ORDERED: ESCITALOPRAM OXALATE 20 MG TAB PO SCH (09:00)
--- NOTE | 2024-09-15 10:36 | Orthopedic Consultation ---
Date of Consultation September 15, 2024 Assessment & Plan (1) Closed fracture of left pelvis: PT/OT Ice with easy wrap Weightbearing as tolerated with walker assistance Pain control with p.o. medication may increase oxycodone to 1 to 2 tablets every 4 hours as needed. For severe pain me use 2 to 4 mg of IV morphine sulfate DVT prophylaxis with DAISY stockings and SCDs, otherwise per medicine service discretion Patient will need to be discharged to either a rehab or half-way facility due to being on her own at home. We will follow-up with her in our office in 4 to 6 weeks. Orthopedically patient is stable for discharge With questions contact our clinic at [phone] Present on Admission?: Yes Supervising Physician Co-Signing Physician Notes I, Dr. Cota, saw and examined the patient. I discussed the management with my PA. I reviewed my PAs note and agree with the documented findings and attest to completing the substantive portion of medical decision making and plan of care I developed. History of Present Illness Reason for Consultation: Left superior pubic rami fx; Left sacral ala fracture Requesting Physician: Torsten Cota MD Attending Physician: John Jeffrey MD History of Present Illness This is an 84 yo F is seen in consultation for left superior pubic rami and sacral ala fractures. 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 She typically ambulates independently, denies any presyncopal complaints. She fell backwards landing onto her buttocks and struggled to get back up. Once a nearby muslim helped her to her feet, she had extreme pain in the left hip and was unable to walk. Allergies Allergy/AdvReac Type Severity Reaction Status Date / Time aspirin Allergy Severe Hives Verified 07/19/24 13:32 NSAIDS (Non-Steroidal Allergy Severe Anaphylaxis Verified 07/19/24 13:32 Anti-Inflamma NOEL Inhibitors Allergy Unknown HIVES, Verified 07/19/24 13:32 SWELLING OF FACE ibuprofen Allergy Unknown Hives Verified 07/19/24 13:32 pantoprazole Allergy Unknown Unknown Verified 07/19/24 13:32 [id number]-[id number]-CnS Reductase Allergy Unknown "arms and Verified 07/19/24 13:32 Inhibitor legs achy" [[id number] Reductase Inhibitor] pravastatin [From Pravachol] AdvReac Severe liver Verified 07/19/24 13:32 complications gabapentin AdvReac Unknown Edema Verified 07/19/24 13:32 valacyclovir [From Valtrex] AdvReac Unknown Kidneys Verified 07/19/24 13:32 shut down Home Medications Medication Instructions Recorded Confirmed Type ezetimibe 10 mg tablet (Zetia) 10 mg PO HS 06/14/20 09/14/24 History fenofibrate micronized 67 mg 67 mg PO HS 06/14/20 09/14/24 History capsule lorazepam 0.5 mg tablet 0.5 mg sublingual HS PRN Insomnia 06/14/20 09/14/24 History omeprazole 40 mg capsule,delayed 40 mg PO QAM 06/14/20 09/14/24 History release oxycodone 5 mg tablet 5 mg PO TID PRN Pain 06/14/20 09/14/24 History lifitegrast 5 % eye drops in a 1 drp OPB BID 06/19/20 09/14/24 History dropperette (Xiidra) buspirone 15 mg tablet 15 mg PO UD 07/16/23 09/14/24 History cholecalciferol (vitamin D3) 100 100 mcg PO DAILY 07/16/23 09/14/24 History mcg (4,000 unit) tablet escitalopram oxalate 10 mg tablet 10 mg PO DAILY 07/16/23 09/14/24 History escitalopram oxalate 20 mg tablet 20 mg PO DAILY 07/16/23 09/14/24 History ondansetron 4 mg disintegrating 8 mg PO TID PRN nausea 07/16/23 09/14/24 History tablet hydroxyzine HCl 25 mg tablet 25 mg PO DIRECTED PRN per 12/31/23 09/14/24 History patient duloxetine 30 mg capsule,delayed 30 mg PO DAILY #30 caps 01/01/24 09/14/24 Rx release losartan 50 mg tablet 50 mg PO BID #60 tabs 01/01/24 09/14/24 Rx metoprolol tartrate 25 mg tablet 25 mg PO BID #60 tabs 01/01/24 09/14/24 Rx famotidine 20 mg tablet 20 mg PO DAILY 09/14/24 09/14/24 History furosemide 20 mg tablet 20 mg PO DAILY PRN Fluid Retention 09/14/24 09/14/24 History Patient History Medical History Vitamin D deficiency Mitral regurgitation Aortic stenosis Surgical History History of hysterectomy History of cholecystectomy Family History Other No pertinent family history Social History Smoking Status: Never smoker Second Hand Exposure: No; Do You Dip or Chew Tobacco: No; Hx Alcohol Use: Yes Alcohol type: beer and wine Alcohol Intake Frequency Co mment: was daily but pt reports cutting back over past few months Hx Substance Use: No Preferred Language: Lebanese Communication Ability: Effective 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 She is unable to perform active straight leg raise test however passively I am able to do it with only minimal discomfort in the groin. She is able to actively dorsi and plantarflex her foot and detect light sensation to touch over the pads of her digits. Peripheral pulses are 2+. Logroll testing causes her referred pain to her lower back. Passive hip flexion to 80 degrees causes discomfort in the groin and back. She also has referred pain to both areas with light passive internal and external hip rotation. Her quad strength is 3 out of 5. She is neurovascularly intact in left lower extremity. Results & Data Vital Signs (Past 12 Hours) Vital Signs Temp Pulse Resp BP Pulse Ox O2 Del Method O2 Flow Rate 09/15/24 08:00 Nasal Cannula 1 09/15/24 07:21 36.8 C 65 16 132/57 L 92 Nasal Cannula 1 09/14/24 22:30 36.7 C 77 18 153/68 H 97 Nasal Cannula 2 Diagnostic Findings Laboratory Results WBC 8.34 K/ul (4.8-10.8) 09/15/24 06:21 RBC 3.17 M/uL (4.20-5.40) L 09/15/24 06:21 Hgb 9.4 g/dl (12.0-16.0) L 09/15/24 06:21 Hct 28.1 % (37.0-47.0) L 09/15/24 06:21 MCV 88.6 fL (80.0-100.0) 09/15/24 06:21 MCH 29.7 pg (25.0-34.0) 09/15/24 06:21 MCHC 33.5 g/dL (32.0-36.0) 09/15/24 06:21 RDW Std Deviation 44.1 fL (36.4-46.3) 09/15/24 06:21 RDW Coeff of Cindy 13.5 % (11.5-14.5) 09/15/24 06:21 Plt Count 271 K/uL (130-400) 09/15/24 06:21 MPV 8.6 fL (9.4-12.4) L 09/15/24 06:21 Immature Gran % (Auto) 0.8 % 09/14/24 17:40 Neut % (Auto) 83.4 % 09/14/24 17:40 Lymph % (Auto) 9.3 % 09/14/24 17:40 Martin % (Auto) 5.3 % 09/14/24 17:40 Eos % (Auto) 0.8 % 09/14/24 17:40 Baso % (Auto) 0.4 % 09/14/24 17:40 Neut # (Auto) 9.47 K/uL (1.40-6.50) H 09/14/24 17:40 Lymph # (Auto) 1.06 K/uL (1.20-3.40) L 09/14/24 17:40 Martin # (Auto) 0.60 K/uL (0.11-0.59) H 09/14/24 17:40 Eos # (Auto) 0.09 K/uL (0.00-0.50) 09/14/24 17:40 Baso # (Auto) 0.04 K/uL (0.00-0.20) 09/14/24 17:40 Immature Gran # (Auto) 0.09 K/uL (0.01-0.20) 09/14/24 17:40 Sodium 131 mmol/L (136-145) L 09/15/24 06:21 Potassium 3.9 mmol/L (3.5-5.1) 09/15/24 06:21 Chloride 100 mmol/L (98-107) 09/15/24 06:21 Carbon Dioxide 26 mmol/L (21-32) 09/15/24 06:21 Anion Gap 5 (3-11) 09/15/24 06:21 BUN 14 mg/dl (6-23) 09/15/24 06:21 Creatinine 0.92 mg/dl (0.6-1.2) 09/15/24 06:21 Est Cr Clr Drug Dosing 33.1 ml/min 09/15/24 06:21 eGFR 61.02 09/15/24 06:21 BUN/Creatinine Ratio 15.2 (10-20) 09/15/24 06:21 Glucose 117 mg/dl (70-99(Fasting)) H 09/15/24 06:21 Osmolality 270 mOsm/kg (280-300) L 09/14/24 17:40 Calcium 8.2 mg/dl (8.6-10.3) L 09/15/24 06:21 Total Bilirubin 0.7 mg/dl (0.2-1.0) 09/14/24 17:40 AST 26 U/L (13-39) 09/14/24 17:40 ALT 17 U/L (7-52) 09/14/24 17:40 Alkaline Phosphatase 58 U/L (34-104) 09/14/24 17:40 Total Protein 6.9 gm/dl (6.0-8.3) 09/14/24 17:40 Albumin 4.0 gm/dl (3.4-5.0) 09/14/24 17:40 Globulin 2.9 gm/dl (2.5-4.0) 09/14/24 17:40 Albumin/Globulin Ratio 1.4 (0.9-2) 09/14/24 17:40 25-OH Vitamin D Total 73.5 ng/ml (30-100) 09/15/24 06:21 Urine Osmolality 492 mOsm/kg (500-800) L 09/15/24 Unknown Ur Random Creatinine 90.8 mg/dl 09/15/24 Unknown Ur Random Sodium 100 mmol/L 09/15/24 Unknown Ur Random Sodium Cancelled 09/15/[address] 09/14/24 15:10 EXAMINATION: CT of the pelvis performed and left hip without the administration of IV contrast TECHNIQUE: Helical CT images from the iliac crests through the symphysis pubis were obtained without contrast. Coronal and sagittal reformatted images were generated at a workstation for further assessment. Dose reduction techniques were achieved by using automatic exposure control and/or adjustment of mA and/or kV according to patient size and/or use of iterative reconstruction technique. COMPARISON: None HISTORY: Trauma FINDINGS: Bladder / Pelvic organs: Unremarkable. Bowel: No bowel obstruction. No abnormal bowel wall thickening. The appendix is unremarkable. Lymph nodes: No retroperitoneal, mesenteric, or pelvic lymphadenopathy. Peritoneum / Retroperitoneum: No free fluid or air within the abdomen. Vessels: No infrarenal aortic aneurysm. Bones and soft tissues: There is a fracture through the distal left superior pubic ramus extending into the pubic bone. Fracture of the lateral left sacral ala extending into the SI joint inferiorly. Mild blood products seen within the prevesical space on the left adjacent to the superior pubic ramus. The femora are intact. No femoral neck fractures. The acetabulum appear intact. IMPRESSION: Fractures through the left anterior aspect of the superior pubic ramus extending into the pubic bone, as well as the left sacral ala extending into the SI joint. Electronically signed by Serg Roy 09-14-2024 4:[address] 09/14/24 15:10 CT lumbar spine without contrast History: Back pain Comparison: None Technique: Using multidetector thin collimation helical acquisition technique, axial, coronal and sagittal CT images through the lumbar spine were obtained without intravenous contrast. Dose reduction techniques were achieved by using automatic exposure control and/or adjustment of mA and/or kV according to patient size and/or use of iterative reconstruction technique. Findings: There are 5 lumbar type vertebrae. Posterior thad and screw fixation changes at L4, L5, and S1. L4-5 and L5-S1 disc spacer devices are present. There is trace anterolisthesis of L4 on L5 as well as L5 on S1. L4, L5, and S1 laminectomy changes are seen. Vertebral body heights are maintained. No visualized fracture. Small multilevel marginal osteophytes of the vertebral bodies. Mild disc height loss at L3-4. The visualized adjacent paraspinous tissues are grossly within normal limits. Impression: No acute bony abnormality of the lumbar spine Electronically signed by Serg Roy 09-14-2024 4:[address] 09/14/24 15:10 EXAMINATION: CT of the pelvis performed and left hip without the administration of IV contrast TECHNIQUE: Helical CT images from the iliac crests through the symphysis pubis were obtained without contrast. Coronal and sagittal reformatted images were generated at a workstation for further assessment. Dose reduction techniques were achieved by using automatic exposure control and/or adjustment of mA and/or kV according to patient size and/or use of iterative reconstruction technique. COMPARISON: None HISTORY: Trauma FINDINGS: Bladder / Pelvic organs: Unremarkable. Bowel: No bowel obstruction. No abnormal bowel wall thickening. The appendix is unremarkable. Lymph nodes: No retroperitoneal, mesenteric, or pelvic lymphadenopathy. Peritoneum / Retroperitoneum: No free fluid or air within the abdomen. Vessels: No infrarenal aortic aneurysm. Bones and soft tissues: There is a fracture through the distal left superior pubic ramus extending into the pubic bone. Fracture of the lateral left sacral ala extending into the SI joint inferiorly. Mild blood products seen within the prevesical space on the left adjacent to the superior pubic ramus. The femora are intact. No femoral neck fractures. The acetabulum appear intact. IMPRESSION: Fractures through the left anterior aspect of the superior pubic ramus extending into the pubic bone, as well as the left sacral ala extending into the SI joint. Electronically signed by Serg Roy 09-14-2024 4:49 PM (1) Closed fracture of left pelvis Encounter type: initial encounter
[2024-09-15] MEDS: oxyCODONE HCL IR 5 MG TAB (IMMEDIATE RELEASE) PO PRN ×2 (11:58→18:04)
--- NOTE | 2024-09-15 15:19 | Hospitalist Progress Note ---
Date of Service September 15, 2024 Assessment & Plan (1) Pelvic fracture: Plan: Patient presents today with a mechanical fall. Patient underwent CT head, Fractures through the left anterior aspect of the superior pubic ramus extending into the pubic bone, as well as the left sacral ala extending into the SI joint. Increase oxycodone to 5 to 10 mg every 4 hours as needed Bowel regimen Incentive spirometry PT OT eval; weight-bear as tolerated. (2) CKD (chronic kidney disease) stage 3, GFR 30-59 ml/min: Plan: - Appears to be at baseline (3) Anxiety: Plan: - Home meds include- Ativan 0.5 mg at bedtime, BuSpar 15 mg every morning and 30 mg every afternoon, duloxetine 30 mg daily, Lexapro 30 mg daily, hydroxyzine 25 mg -Ativan decreased to 0.25mg for now (4) Hyponatremia: (5) SIADH (syndrome of inappropriate ADH production): Plan: - Reviewed urine osmolarity, urine sodium; consistent with SIADH - NA is 128 on admission; slightly improved - Place on fluid restriction of 1.5L daily with HH diet (6) Alcohol use: Plan: - Pt admits to drinking 2-3 glasses of wine at a time, 3-4x per week. Last drink was within 48 hours. Daughter at bedside is concerned for possible withdrawal sx. - AWSS ordered - Ativan 0.25 mg HS as discussed above (7) Chronic pain disorder: (8) Opioid dependence: Plan: Chronically on oxycodone 5 mg; increased to 5 to 10 mg every 4 hours as needed for better pain control (9) Hypertrophic cardiomyopathy: (10) HTN (hypertension): (11) Hyperlipidemia: Plan: -Continue furosemide 20 mg once daily as needed, ezetimibe 10 mg, Losartan 50 mg twice daily, metoprolol tartrate 25 twice daily DVT ppx: teds, scds Lines: PIV 1 FEN/GI: Heart healthy CODE: Discussed with patient's son at bedside. Please note the above document was generated using voice recognition software. It may contain grammatical, syntax or spelling errors. Any formal questions or concerns about the content, text or information contained within the body of this dictation should be directly addressed to the provider for clarification. Admission and Anticipated Discharge Date Admission Date: September 14, 2024 Subjective Patient seen and examined at bedside. She is lying on the bed comfortably; reports that her pain is better controlled with current medication No significant events overnight Review of Systems Review of Systems: All systems reviewed & are unremarkable except as noted in Subjective Physical Exam Physical Exam: General: awake, alert, no apparent distress, thin, white female Head: Normocephalic, atraumatic ENT: PERRL, EOMI, no pharyngeal exudate, mucous membranes moist Chest: Clear to auscultation, on room air, no adventitious breath sounds Cardiac: Regular rate and rhythm, no murmur, no JVD, normal peripheral pulses, good capillary refill Abdominal: NABS x 4 quadrants, soft, nondistended, nontender to palpation, no rebound or guarding Extremities: Left hip pain with minimal movement. Able to bend knees bilaterally. Psych: Normal mood and affect Neuro: AAO x 3, Left hip flexation not able to be performed due to pain. Otherwise no motor deficits, speech is clear, no peripheral sensory deficits Results & Data Results & Data Vital Signs (Past 12 Hours) Vital Signs Temp Pulse Resp BP Pulse Ox O2 Del Method O2 Flow Rate 09/15/24 15:06 37.1 C 69 16 133/52 L 92 Nasal Cannula 2 09/15/24 08:00 Nasal Cannula 1 09/15/24 07:21 36.8 C 65 16 132/57 L 92 Nasal Cannula 1 (8) Opioid dependence Substance use status: uncomplicated Qualified Code(s): F11.20 - Opioid dependence, uncomplicated
[2024-09-15] MEDS: ENOXAPARIN INJ 40 MG/0.4 ML SYR SQ SCH (18:51)
[2024-09-15] MEDS: ACETAMINOPHEN 1,000 MG/100 ML VIAL IV ONE (20:21)
[2024-09-15] MEDS: LIDOCAINE 5% 1 PATCH TD SCH (20:27)
[2024-09-15] MEDS: ONDANSETRON INJ 2 MG/ML 2 ML VIAL IV PRN (22:32)
[2024-09-15] MEDS: FENOFIBRATE 67 MG PO SCH (22:33)
--- NOTE | 2024-09-15 23:32 | XRay Report ---
Exam(s): XR CXR 1 VIEW EXAM: XR Chest, 1 View CLINICAL HISTORY: Hypoxia. TECHNIQUE: Frontal view of the chest. COMPARISON: Chest radiograph 12/30/2023 FINDINGS: Lungs: Emphysema. No definitive consolidation. Pleural space: Small bilateral pleural effusions. No pneumothorax. Heart: Cardiomegaly. Mediastinum: Unremarkable. Normal mediastinal contour. Bones/joints: There are degenerative changes of the spine. No acute fracture. Upper abdomen: There is elevation of the right hemidiaphragm. IMPRESSION: 1. Small bilateral pleural effusions. 2. Cardiomegaly. 3. There is elevation of the right hemidiaphragm. 4. Emphysema. No definitive consolidation. Electronically signed by: Shira Kapoor MD 09/15/24 23:31 PM
[2024-09-16 03:31] LABS: Base Excess ABG 0.3 mEq/L (-9-1.8); HCO3 ABG 25 mmol/L (19-24); Oxygen Saturation ABG 98.3 % (90-95); PCO2 ABG 38 mmHg (35-46); PO2 ABG 122 mmHg (80-95); pH ABG 7.42 (7.35-7.45)
[2024-09-16 03:32] LABS: Allen Test Pos (Pos)
[2024-09-16 03:46] LABS: Basophils # (auto) 0.06 K/uL (0.00-0.20); Basophils % (auto) 0.6 %; Eosinophils # (auto) 0.06 K/uL (0.00-0.50); Eosinophils % (auto) 0.6 %; Hematocrit (blood only) 26.3 % (37.0-47.0); Hemoglobin 8.8 g/dl (12.0-16.0); Immature Granulocytes # (auto) 0.07 K/uL (0.01-0.20); Immature Granulocytes % (auto) 0.7 %; Lymphocytes # (auto) 1.27 K/uL (1.20-3.40); Lymphocytes % (auto) 13.2 %; Mean Corpuscular Hemoglobin 29.8 pg (25.0-34.0); Mean Corpuscular Hgb Conc 33.5 g/dL (32.0-36.0); Mean Corpuscular Volume 89.2 fL (80.0-100.0); Mean Platelet Volume 8.5 fL (9.4-12.4); Monocytes # (auto) 0.84 K/uL (0.11-0.59); Monocytes % (auto) 8.8 %; Neutrophils % (auto) 76.1 %; Platelet Count 251 K/uL (130-400); RDW Coefficient of Variation 13.6 % (11.5-14.5); RDW Standard Deviation 44.5 fL (36.4-46.3); Red Blood Count 2.95 M/uL (4.20-5.40)
[2024-09-16 04:02] LABS: D Dimer 1880 ug/L FEU (0-500)
[2024-09-16] MEDS: ACETAMINOPHEN 1,000 MG/100 ML VIAL IV PRN (04:04)
[2024-09-16 04:06] LABS: BUN Creatinine Ratio 17.3 (10-20); Calcium 8.2 mg/dl (8.6-10.3); Creatinine Clr Calc Pharmacy 29.3 ml/min; Potassium 4.5 mmol/L (3.5-5.1)
[2024-09-16] MEDS: OPTIRAY 320 125ml IV ONE (05:00)
--- NOTE | 2024-09-16 05:55 | CT Scan Report ---
EXAM: CT angio chest PE protocol CLINICAL HISTORY: Pulmonary Embolism. TECHNIQUE: Contiguous 3.[address] angiographic images of the chest were acquired with the administration of intravenous contrast. Coronal and sagittal reconstructions were obtained.118 ml OPTIRAY 320 was administered for post-contrast images. One of these 3D techniques was utilized: Maximum Intensity Pixel (MIP), 3D Reconstructed Images, Volume Rendered Images, Surface Shaded Rendering. One of the following dose reduction techniques were utilized for this exam: Automated exposure control, adjustment of the mA and/or kV according to patient size, and use of iterative reconstruction. DLP: 222.32mGy.cm COMPARISON: prior chest X-ray dated 12/30/2023. FINDINGS: Pulmonary Arteries: Left pulmonary artery is mildly dilated measuring 2.7cm, right is 2cm, main is 2.9cm. No evidence of pulmonary embolism. No stenosis or filling defects. Aorta: Atherosclerotic changes, ectatic ascending aorta 3.5cm. No evidence of aneurysm, dissection. Superior Vena Cava (SVC) and Inferior Vena Cava (IVC): Normal opacification and caliber. No evidence of thrombus or obstruction. Mediastinum: No mediastinal mass or lymphadenopathy. Normal appearance of the thymus. Heart: Normal size and morphology of the heart. No pericardial effusion. Lungs: Right lower lobe posterior segment consolidation. Left upper lobe, thin atelectatic line. Bilateral posterior basal dependent changes. No pleural effusion or thickening. Bones: No fractures or lytic/sclerotic lesions of the visualized bony structures. Normal alignment and bone density. Soft Tissues: Normal appearance of the visualized soft tissues. No abnormal masses or fluid collections. IMPRESSION: 1. No evidence of pulmonary embolism. 2. Left pulmonary artery is mildly dilated measuring 2.7cm, right is 2cm, main is 2.9cm. 3. Right lower lobe posterior segment consolidation, vascularized suggestive pneumonic consolidation. 4. Aorta show atherosclerotic changes, ectatic ascending aorta 3.5cm. 5. Finding are new and better appreciated by current CT. Electronically signed by Pillo Gramajo 09-16-2024 05:54 AM
[2024-09-16] MEDS: 4.5GM X1 IV STA (08:05)
[2024-09-16] MEDS: OMEPRAZOLE 40 MG PO SCH (09:24)
[2024-09-16] MEDS: hydrOXYzine HCl 25 MG TAB PO PRN (09:34)
--- NOTE | 2024-09-16 09:49 | Hospitalist Progress Note ---
Date of Service September 16, 2024 Assessment & Plan (1) Pelvic fracture: Plan: Patient presents today with a mechanical fall. Patient underwent CT head, Fractures through the left anterior aspect of the superior pubic ramus extending into the pubic bone, as well as the left sacral ala extending into the SI joint. Increase oxycodone to 5 to 10 mg every 4 hours as needed Bowel regimen Incentive spirometry PT OT eval; weight-bear as tolerated. (2) Pneumonia: Plan: Patient had period Of hypoxia overnight on 09/15; CTA chest did not show any PE; found to have an right lower lobe consolidation Started on Zosyn and doxycycline Started on DuoNebs twice daily Flutter valve, incentive spirometry Aspiration precautions (3) CKD (chronic kidney disease) stage 3, GFR 30-59 ml/min: Plan: - Appears to be at baseline (4) Anxiety: Plan: - Home meds include- Ativan 0.5 mg at bedtime, BuSpar 15 mg every morning and 30 mg every afternoon, duloxetine 30 mg daily, Lexapro 30 mg daily, hydroxyzine 25 mg -Ativan decreased to 0.25mg for now (5) Hyponatremia: (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 Last drink was within 48 hours. Daughter at bedside is concerned for possible withdrawal sx. - AWSS ordered - Ativan 0.25 mg HS as discussed above (8) Chronic pain disorder: (9) Opioid dependence: Plan: Chronically on oxycodone 5 mg; increased to 5 to 10 mg every 4 hours as needed for better pain control (10) Hypertrophic cardiomyopathy: (11) HTN (hypertension): (12) Hyperlipidemia: Plan: -Continue furosemide 20 mg once daily as needed, ezetimibe 10 mg, Losartan 50 mg twice daily, metoprolol tartrate 25 twice daily DVT ppx: lovenox Lines: PIV 1 FEN/GI: Heart healthy CODE: Time spent evaluating patient, direct bedside care, chart review, placing orders, interpretation of diagnostic studies, discussion with consultants, patient, and family members, as well as other required patient management activities is 50 minutes Please note the above document was generated using voice recognition software. It may contain grammatical, syntax or spelling errors. Any formal questions or concerns about the content, text or information contained within the body of this dictation should be directly addressed to the provider for clarification. Admission and Anticipated Discharge Date Admission Date: September 14, 2024 Subjective Overnight patient had periods of hypoxia; underwent CTA chest which showed right lower lobe infiltrate concerning for pneumonia She is currently on 5 L of oxygen via nasal cannula Review of Systems Review of Systems: All systems reviewed & are unremarkable except as noted in Subjective Physical Exam Physical Exam: General: awake, alert, no apparent distress, thin, white female Head: Normocephalic, atraumatic ENT: PERRL, EOMI, no pharyngeal exudate, mucous membranes moist Chest: Decreased breath sound on right lower lung base. Cardiac: Regular rate and rhythm, no murmur, no JVD, normal peripheral pulses, good capillary refill Abdominal: NABS x 4 quadrants, soft, nondistended, nontender to palpation, no rebound or guarding Extremities: Left hip pain with minimal movement. Able to bend knees bilaterally. Psych: Normal mood and affect Neuro: AAO x 3, Left hip flexation not able to be performed due to pain. Otherwise no motor deficits, speech is clear, no peripheral sensory deficits Results & Data Results & Data Vital Signs (Past 12 Hours) Vital Signs Temp Pulse Resp BP Pulse Ox Pulse Ox O2 Del Method 09/16/24 08:55 91 Nasal Cannula 09/16/24 08:53 36.6 C 73 16 120/70 Nasal Cannula 09/16/24 08:50 88 L Nasal Cannula 09/16/24 08:45 86 L Nasal Cannula 09/16/24 05:06 37.7 C H 09/16/24 03:57 95 09/16/24 02:32 38.0 C H 91 H 14 123/61 91 Nasal Cannula 09/16/24 02:20 47 L Room Air 09/16/24 00:05 90 Nasal Cannula 09/15/24 22:30 Nasal Cannula O2 Del Method O2 Flow Rate O2 Flow Rate 09/16/24 08:55 5 09/16/24 08:53 3 09/16/24 08:50 4 09/16/24 08:45 3 09/16/24 05:06 09/16/24 03:57 Nasal Cannula 3 09/16/24 02:32 3 09/16/24 02:20 09/16/24 00:05 2 09/15/24 22:30 2 (9) Opioid dependence Substance use status: uncomplicated Qualified Code(s): F11.20 - Opioid dependence, uncomplicated
[2024-09-16] MEDS: ALBUT/IPRATROP 3MG/0.5MG NEB 3 ML VIAL NEB SCH (11:14)
[2024-09-16] MEDS: PIPERACILLIN/TAZOBACTAM 4.5 GM/100 ML BAG IV SCH (13:48)
[2024-09-16] MEDS: DOXYCYCLINE HYCLATE 100 MG CAP PO SCH (13:48)
[2024-09-17] MEDS: bisacodyL 10 MG SUPP PR STA ×2 (05:36→15:29)
[2024-09-17 06:17] LABS: Basophils # (auto) 0.05 K/uL (0.00-0.20); Basophils % (auto) 0.6 %; Eosinophils # (auto) 0.32 K/uL (0.00-0.50); Eosinophils % (auto) 3.9 %; Hematocrit (blood only) 24.6 % (37.0-47.0); Hemoglobin 8.1 g/dl (12.0-16.0); Immature Granulocytes # (auto) 0.07 K/uL (0.01-0.20); Immature Granulocytes % (auto) 0.8 %; Lymphocytes # (auto) 1.22 K/uL (1.20-3.40); Lymphocytes % (auto) 14.8 %; Mean Corpuscular Hemoglobin 29.8 pg (25.0-34.0); Mean Corpuscular Hgb Conc 32.9 g/dL (32.0-36.0); Mean Corpuscular Volume 90.4 fL (80.0-100.0); Mean Platelet Volume 9.1 fL (9.4-12.4); Monocytes # (auto) 0.91 K/uL (0.11-0.59); Neutrophils # (auto) 5.69 K/uL (1.40-6.50); Neutrophils % (auto) 68.9 %; Platelet Count 257 K/uL (130-400); RDW Coefficient of Variation 13.8 % (11.5-14.5); Red Blood Count 2.72 M/uL (4.20-5.40); White Blood Count 8.26 K/ul (4.8-10.8)
[2024-09-17 06:38] LABS: Calcium 8.4 mg/dl (8.6-10.3); Creatinine Clr Calc Pharmacy 26.4 ml/min
[2024-09-17] MEDS: ENOXAPARIN INJ 30 MG/0.3 ML SYR SQ SCH (08:11)
--- NOTE | 2024-09-17 14:44 | Hospitalist Progress Note ---
Date of Service September 17, 2024 Assessment & Plan (1) Pelvic fracture: Plan: Patient presents today with a mechanical fall. Patient underwent CT head, Fractures through the left anterior aspect of the superior pubic ramus extending into the pubic bone, as well as the left sacral ala extending into the SI joint. Continue oxycodone to 5 to 10 mg every 4 hours as needed Bowel regimen Incentive spirometry PT OT eval; weight-bear as tolerated. (2) Pneumonia: Plan: Patient had period Of hypoxia overnight on 09/15; CTA chest did not show any PE; found to have an right lower lobe consolidation Started on Zosyn and doxycycline; plan to treat for 7 days Started on DuoNebs twice daily Flutter valve, incentive spirometry Aspiration precautions; has hx of GERD evaluated bu speech; recommended regular diet and thin liquids (3) CKD (chronic kidney disease) stage 3, GFR 30-59 ml/min: Plan: - Appears to be at baseline (4) Anxiety: Plan: - Home meds include- Ativan 0.5 mg at bedtime, BuSpar 15 mg every morning and 30 mg every afternoon, duloxetine 30 mg daily, Lexapro 30 mg daily, hydroxyzine 25 mg -Ativan decreased to 0.25mg for now (5) Hyponatremia: (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 Last drink was within 48 hours. Daughter at bedside is concerned for possible withdrawal sx. - AWSS ordered - Ativan 0.25 mg HS as discussed above (8) Chronic pain disorder: (9) Opioid dependence: Plan: Chronically on oxycodone 5 mg; increased to 5 to 10 mg every 4 hours as needed for better pain control (10) Hypertrophic cardiomyopathy: (11) HTN (hypertension): (12) Hyperlipidemia: Plan: -Continue furosemide 20 mg once daily as needed, ezetimibe 10 mg, Losartan 50 mg twice daily, metoprolol tartrate 25 twice daily DVT ppx: lovenox Lines: PIV 1 FEN/GI: Heart healthy CODE: Please note the above document was generated using voice recognition software. It may contain grammatical, syntax or spelling errors. Any formal questions or concerns about the content, text or information contained within the body of this dictation should be directly addressed to the provider for clarification. Admission and Anticipated Discharge Date Admission Date: September 14, 2024 Subjective Patient seen and examined at bedside. She is eating lunch; reports pain while working with physical therapy Denies any increasing shortness of breath Review of Systems Review of Systems: All systems reviewed & are unremarkable except as noted in Subjective Physical Exam Physical Exam: General: awake, alert, no apparent distress, thin, white female Head: Normocephalic, atraumatic ENT: PERRL, EOMI, no pharyngeal exudate, mucous membranes moist Chest: Decreased breath sound on right lower lung base. Cardiac: Regular rate and rhythm, no murmur, no JVD, normal peripheral pulses, good capillary refill Abdominal: NABS x 4 quadrants, soft, nondistended, nontender to palpation, no rebound or guarding Extremities: Left hip pain with minimal movement. Able to bend knees bilaterally. Psych: Normal mood and affect Neuro: AAO x 3, Left hip flexation not able to be performed due to pain. Otherwise no motor deficits, speech is clear, no peripheral sensory deficits Results & Data Results & Data Vital Signs (Past 12 Hours) Vital Signs Temp Pulse Pulse Resp BP Pulse Ox O2 Del Method 09/17/24 12:04 37.4 C 78 18 93 Nasal Cannula 09/17/24 08:00 36.7 C 76 20 135/69 3 L Nasal Cannula 09/17/24 07:45 Nasal Cannula 09/17/24 07:27 68 16 93 Nasal Cannula 09/17/24 04:54 36.9 C 68 14 119/65 98 Nasal Cannula O2 Flow Rate 09/17/24 12:04 3 09/17/24 08:00 09/17/24 07:45 2 09/17/24 07:27 2 09/17/24 04:54 3 (9) Opioid dependence Substance use status: uncomplicated Qualified Code(s): F11.20 - Opioid dependence, uncomplicated
[2024-09-17] MEDS: MAGNESIUM HYDROXIDE SUSP 30 ML UDC PO ONE (15:58)
--- NOTE | 2024-09-18 10:12 | Hospitalist Progress Note ---
Date of Service September 18, 2024 Assessment & Plan (1) Pelvic fracture: Plan: Patient presents today with a mechanical fall. Patient underwent CT head, Fractures through the left anterior aspect of the superior pubic ramus extending into the pubic bone, as well as the left sacral ala extending into the SI joint. Continue oxycodone to 5 to 10 mg every 4 hours as needed Bowel regimen Incentive spirometry PT OT eval; weight-bear as tolerated. (2) Pneumonia: Plan: Patient had period Of hypoxia overnight on 09/15; CTA chest did not show any PE; found to have an right lower lobe consolidation on ceftriaxone and doxycycline; plan to treat for 7 days Started on DuoNebs twice daily Flutter valve, incentive spirometry Aspiration precautions; has hx of GERD evaluated by speech; recommended regular diet and thin liquids wean oxygen as tolerated. 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 Last drink was within 48 hours. Daughter at bedside is concerned for possible withdrawal sx. - AWSS ordered - Ativan 0.25 mg HS as discussed above (8) Chronic pain disorder: (9) Opioid dependence: Plan: Chronically on oxycodone 5 mg; increased to 5 to 10 mg every 4 hours as needed for better pain control (10) Hypertrophic cardiomyopathy: (11) HTN (hypertension): (12) Hyperlipidemia: Plan: -Continue furosemide 20 mg once daily as needed, ezetimibe 10 mg, Losartan 50 mg twice daily, metoprolol tartrate 25 twice daily DVT ppx: lovenox Lines: PIV 1 FEN/GI: Heart healthy CODE: DNR/DNI Please note the above document was generated using voice recognition software. It may contain grammatical, syntax or spelling errors. Any formal questions or concerns about the content, text or information contained within the body of this dictation should be directly addressed to the provider for clarification. Admission and Anticipated Discharge Date Admission Date: September 14, 2024 Subjective Patient seen and examined at bedside. She is comfortable; reports that pain is well controlled on current medicaitons Review of Systems Review of Systems: All systems reviewed & are unremarkable except as noted in Subjective Physical Exam Physical Exam: General: awake, alert, no apparent distress, thin, white female Chest: Decreased breath sound on right lower lung base. Cardiac: Regular rate and rhythm, no murmur, no JVD, normal peripheral pulses, good capillary refill Abdominal: NABS x 4 quadrants, soft, nondistended, nontender to palpation, no rebound or guarding Extremities: Left hip pain with minimal movement. Able to bend knees bilaterally. Psych: Normal mood and affect Neuro: AAO x 3, Left hip flexation not able to be performed due to pain. Othe rwise no motor deficits, speech is clear, no peripheral sensory deficits Results & Data Results & Data Vital Signs (Past 12 Hours) Vital Signs Temp Pulse Resp BP Pulse Ox O2 Del Method O2 Flow Rate 09/18/24 07:58 36.9 C 80 18 157/70 H 99 Nasal Cannula 3 09/18/24 07:33 76 18 97 Nasal Cannula 3 (9) Opioid dependence Substance use status: uncomplicated Qualified Code(s): F11.20 - Opioid dependence, uncomplicated
[2024-09-18] MEDS: cefTRIAXone SODIUM 2,000 MG/50 ML BAG IV SCH (20:24)
[2024-09-18] MEDS: LORazepam 0.5 MG TAB SL STA (23:46)
[2024-09-19 07:33] LABS: Basophils # (auto) 0.03 K/uL (0.00-0.20); Basophils % (auto) 0.4 %; Eosinophils # (auto) 0.44 K/uL (0.00-0.50); Hematocrit (blood only) 23.2 % (37.0-47.0); Hemoglobin 7.7 g/dl (12.0-16.0); Immature Granulocytes # (auto) 0.05 K/uL (0.01-0.20); Immature Granulocytes % (auto) 0.7 %; Lymphocytes # (auto) 0.98 K/uL (1.20-3.40); Lymphocytes % (auto) 13.3 %; Mean Corpuscular Hemoglobin 29.6 pg (25.0-34.0); Mean Corpuscular Hgb Conc 33.2 g/dL (32.0-36.0); Mean Corpuscular Volume 89.2 fL (80.0-100.0); Mean Platelet Volume 8.9 fL (9.4-12.4); Monocytes # (auto) 1.27 K/uL (0.11-0.59); Monocytes % (auto) 17.2 %; Neutrophils % (auto) 62.4 %; Platelet Count 336 K/uL (130-400); RDW Coefficient of Variation 13.8 % (11.5-14.5); RDW Standard Deviation 44.9 fL (36.4-46.3); White Blood Count 7.37 K/ul (4.8-10.8)
[2024-09-19 07:52] LABS: Hypochromasia Present; Microcytosis Present
[2024-09-19 07:54] LABS: BUN Creatinine Ratio 27.5 (10-20); Calcium 8.6 mg/dl (8.6-10.3); Potassium 4.1 mmol/L (3.5-5.1)
[2024-09-19 07:56] VITALS: BP 152/63; PULSE 84; RESP 18; TEMP 97.3; O2SAT 91
--- NOTE | 2024-09-19 13:35 | Discharge Summary ---
Date of Service September 19, 2024 Admission HPI Per Admitting Provider This is an 84 yo F with PMhx of hypertrophic cardiomyopathy, pulmonary artery hypertension, HTN, HLD, peripheral vascular disease, CKD stage III, prediabetes, osteoarthritis, chronic low back pain, opioid dependence with use of oxycodone 5 mg routinely who presents to the hospital with complaints of mechanical fall while walking into [place] to [employer] her prescriptions due to improperly fitted shoes. She typically ambulates independently, denies any presyncopal complaints. She fell backwards landing onto her buttocks and struggled to get back up. Once a nearby orthodox helped her to her feet, she had extreme pain in the left hip and was unable to walk. Daughter, Cami, is present with her at bedside and supports the history. CT imaging reviewed and has a nondisplaced left pelvic fracture. Ortho was consulted and although this is nonsurgical pt states that she cannot walk due to the pain. Pt reports the pain is somewhat controlled at rest however intolerable with attempt to ambulate in the ER. She currently rates pain as 8/10 and was just given her dose of oxycodone IR 5 mg in the ER. Pt admits to alcohol use regularly, drinks 2-3 small glasses of wine at a time. When attempt was made to quantify this in ounces she is unable to give me a direct answer. Daughter states she is concerned for the patient with withdrawal. Pt herself denies this. Pt takes multiple medications for anxiety including lorazepam, buspar, hydroxyzine, escitalopram, duloxetine. We discussed increased risk of falls with use of lorazepam and discussed reduction of the dose to attempt to wean off. Admission Exam Per Admitting Provider General: awake, alert, no apparent distress, thin, white female Head: Normocephalic, atraumatic ENT: PERRL, EOMI, no pharyngeal exudate, mucous membranes moist Chest: Clear to auscultation, on room air, no adventitious breath sounds Cardiac: Regular rate and rhythm, no murmur, no JVD, normal peripheral pulses, good capillary refill Abdominal: NABS x 4 quadrants, soft, nondistended, nontender to palpation, no rebound or guarding Extremities: Left hip pain with minimal movement. Able to bend knees bila terally. Normal inspection, no peripheral edema or erythema, calfs nontender to palpation, no obvious areas of ecchymosis over hip or low back. Psych: Normal mood and affect Neuro: AAO x 3, Left hip flexation not able to be performed due to pain. Otherwise no motor deficits, speech is clear, no peripheral sensory deficits Principal Diagnosis Pelvic fracture: Pneumonia: Discharge Exam General: awake, alert, no apparent distress, thin, white female Chest: Decreased breath sound on right lower lung base. Cardiac: Regular rate and rhythm, no murmur, no JVD, normal peripheral pulses, good capillary refill Abdominal: NABS x 4 quadrants, soft, nondistended, nontender to palpation, no rebound or guarding Extremities: Left hip pain with minimal movement. Able to bend knees bilaterally. Psych: Normal mood and affect Neuro: AAO x 3, Left hip flexion not able to be performed due to pain. Otherwise no motor deficits, speech is clear, no peripheral sensory deficits Discharge Data Allergies Allergy/AdvReac Type Severity Reaction Status Date / Time aspirin Allergy Severe Hives Verified 07/19/24 13:32 NSAIDS (Non-Steroidal Allergy Severe Anaphylaxis Verified 07/19/24 13:32 Anti-Inflamma NOEL Inhibitors Allergy Unknown HIVES, Verified 07/19/24 13:32 SWELLING OF FACE ibuprofen Allergy Unknown Hives Verified 07/19/24 13:32 pantoprazole Allergy Unknown Unknown Verified 07/19/24 13:32 Tnvctkh-YZP-KrB Reductase Allergy Unknown "arms and Verified 07/19/24 13:32 Inhibitor legs achy" [[id number]-Nrx-Jgg Reductase Inhibitor] pravastatin [From Pravachol] AdvReac Severe liver Verified 07/19/24 13:32 complications gabapentin AdvReac Unknown Edema Verified 07/19/24 13:32 valacyclovir [From Valtrex] AdvReac Unknown Kidneys Verified 07/19/24 13:32 shut down Consultations 09/14/24 17:25 Consult Orthopedic Surgery Stat 09/14/24 17:47 ED Decision to Admit Stat Ordered Studies 09/14/24 15:10 CT hip LT wo con Stat CT lumbar spine wo con Stat CT pelvis wo con Stat 09/16/24 04:16 CT angio chest PE protocol Urgent Hospital Course (1) Pelvic fracture: Patient presents today with a mechanical fall. Patient underwent CT head, Fractures through the left anterior aspect of the superior pubic ramus extending into the pubic bone, as well as the left sacral ala extending into the SI joint. Orthopedic was consulted for comanagement; recommended weight-bear as tolerated. Pain control. Bowel regimen. Patient was placed on Lovenox for DVT prophylaxis. PT OT evaluation was done; patient was discharged to rehab. (2) Pneumonia: Patient had period Of hypoxia overnight on 09/15; CTA chest did not show any PE; found to have an right lower lobe consolidation evaluated by speech; recommended regular diet and thin liquids Patient was treated during the hospitalization with IV antibiotic, flutter valve, breathing treatments. She was saturating at 3 L of oxygen by nasal cannula at the time of the discharge. 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 Last drink was within 48 hours. Daughter at bedside is concerned for possible withdrawal sx. - no signs or symptoms of withdrawls at discharge. (8) Chronic pain disorder: (9) Opioid dependence: Chronically on oxycodone 5 mg; increased to 5 to 10 mg every 4 hours as needed for better pain control (10) Hypertrophic cardiomyopathy: (11) HTN (hypertension): (12) Hyperlipidemia: -Continue furosemide 20 mg once daily as needed, ezetimibe 10 mg, Losartan 50 mg twice daily, metoprolol tartrate 25 twice daily Please note the above document was generated using voice recognition software. It may contain grammatical, syntax or spelling errors. Any formal questions or concerns about the content, text or information contained within the body of this dictation should be directly addressed to the provider for clarification. Total Time Total Time Spent Total Time Spent (In Minutes): 34 Total Time Includes: Examination of the Patient, Discharge Planning, Medication Reconciliation, Communication With Other Providers and Other Discharge Plan Discharge Items Patient Disposition: Transfer Inpatient Rehab Fac Reason For Visit: PELVIC FRACTURE Discharge Diagnosis: Pelvic fracture: Pneumonia: Activity: Resume your previous activity Non-emergency contact: Primary Care Provider Call non-emergency contact if: you have any medication questions and your symptoms worsen Follow-up/Referrals: Edilia Kenyon MD [Primary Care Provider] - Diet: Regular Addtl Attending Provider Instructions: You were admitted to the hospital due to pelvic fracture. You are being discharged to rehab. Please weight-bear as tolerated. You can use oxycodone 1 to 2 tablets every 6 hours as needed for pain control. You are prescribed Lovenox for DVT prophylaxis. You are also found to have pneumonia during the hospitalization for which you are prescribed antibiotic for 5 more days. Please use flutter valve every 4 hours as well as incentive spirometry every hour. Please follow-up with orthopedic. Obtain CBC, BMP on 09/22/2024 to monitor on your blood level and your kidney function, electrolyes Please obtain CT chest in 4 to 6 weeks to ensure resolution of the pneumonia. 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 or IV pain medication. She is opioid dependent DVT prophylaxis with DAISY stockings and SCDs and oral medication per medicine service I advised the patient that her fractures are nonoperative. She will most likely need outpatient physical therapy after being discharged from rehab facility. Will plan on following up with her in the office in 4 to 6 weeks (CELESTINE on 10/11/24 at 9:30) With questions contact our clinic at [phone] Pending Studies at Discharge: No Stand-Alone Forms: My [facility] Skilled Items Lines: None Urinary Catheter: No Medications and DC Order Prescriptions: New doxycycline hyclate 100 mg Capsule 100 mg PO BID 5 Days Qty: 10 0RF ipratropium-albuterol 0.5 mg-3 mg(2.5 mg base)/3 mL Solution For Nebulization 3 ml NEB BID 7 Days Qty: 90 0RF polyethylene glycol 3350 [Miralax] 17 gram Powder In Packet 17 g PO DAILY 30 Days Qty: 30 0RF thiamine HCl (vitamin B1) 100 mg Tablet 100 mg PO QAM Qty: 30 0RF folic acid 400 mcg Tablet 400 mcg PO QAM Qty: 30 0RF bisacodyl [Gentle Laxative (bisacodyl)] 5 mg Tablet,Delayed Release (Dr/Ec) 10 mg PO DAILY Qty: 60 0RF enoxaparin [Lovenox] 30 mg/0.3 mL Syringe 30 mg subcut QAM 30 Days Qty: 9 0RF multivitamin with folic acid [Daily-Kirby (with folic acid)] 400 mcg Tablet 1 tab PO QAM Qty: 30 0RF cefuroxime axetil 500 mg tablet 500 mg PO BID 5 Days Qty: 10 0RF (DME) Flutter Valve Device See Rx Instructions .Route Qty: 1 0RF Rx Instructions: As directed Continued buspirone 15 mg tablet 15 mg PO UD Rx Instructions: per daughter she does 1 tab po qam and 2 tabs pm escitalopram oxalate 20 mg tablet 20 mg PO DAILY escitalopram oxalate 10 mg tablet 10 mg PO DAILY cholecalciferol (vitamin D3) 100 mcg (4,000 unit) tablet 100 mcg PO DAILY ondansetron 4 mg tablet,disintegrating 8 mg PO TID PRN (Reason: nausea) Xiidra 5 % Dropperette 1 drp OPB BID fenofibrate micronized 67 mg Capsule 67 mg PO HS lorazepam 0.5 mg tablet 0.5 mg sublingual HS PRN (Reason: Insomnia) ezetimibe [Zetia] 10 mg Tablet 10 mg PO HS hydroxyzine HCl 25 mg tablet 25 mg PO DIRECTED PRN (Reason: per patient) losartan 50 mg Tablet 50 mg PO BID Qty: 60 0RF metoprolol tartrate 25 mg tablet 25 mg PO BID Qty: 60 0RF Rx Instructions: per daughter, she thinks it's once a day. She says shell double check duloxetine 30 mg capsule,delayed release(DR/EC) 30 mg PO DAILY Qty: 30 0RF famotidine 20 mg tablet 20 mg PO DAILY furosemide 20 mg tablet 20 mg PO DAILY PRN (Reason: Fluid Retention) Changed omeprazole 40 mg capsule,delayed release(DR/EC) 40 mg PO BID Qty: 0 0RF oxycodone 5 mg tablet 5 - 10 mg PO Q6H PRN (Reason: Pain) Qty: 0 0RF Discharge Orders: Discharge Order (Routine); Ordered 09/19/24 Ordered By: John Jeffrey Admission Data Admit Date/Time: 09/14/24 17:59 Attending Provider: John Jeffrey Admit Provider: German Regan Primary Care Provider: Edilia Kenyon Other Providers: Torsten Cota; German Regan; [facility]; Mary Robertson; [place]; [facility] Other Interventions: Discharge Summary Assessment (RN) Last Done: 09/19/24 12:42
== END 2024-09-19 16:40 | DRG 535 ==
LOC: ED 14:47 → 3W 17:59 → SUATTDRO 17:59 → 3W 22:01

== ENCOUNTER 2024-10-14 18:02 | Inpatient (IN) ==
--- OUTSIDE RECORDS SUMMARY | 2024-10-14 18:07 | External Medical Summary | Summary of Care ---
Author Name Unknown Organization [facility] Address [address] [place] [address] Phone [phone] Care Team Providers Care Housecleaner Name Role Phone Edilia Kenyon MD Primary Care Provider + Reason for Visit * Reason Onset Date Comments Medication Question 10/10/2024 Encounter Details Date Type Department Care Team (Late st Contact Info) Description 10/10/2024 Telephone General Internal Medicine [facility] [address] [place] [address] Edilia Kenyon MD [address] [facility] [place] [address] Medication Question Allergies Active Allergy Reactions Criticality Noted Date [...] as of this encounter (statuses as of 10/13/2024) Medications HM Vitamin D3 100 MCG (4000 UT) Oral Capsule (Cholecalciferol ) Take by mouth . Active Zoster Vac Recomb Adjuvanted 50 MCG/0.5ML Intramuscular Suspension Reconstituted (Shingrix)Indica tions:Need for vaccination for zoster Inject 0.5 mL into a large muscle now and repeat dose in 60 to 180 days 1 Each 1 023 Active Fenofibrate Micronized 67 MG Oral CapsuleIndicatio ns:Hypertensive heart 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 failure,Dyslipid emia, goal LDL below 130,History of tobacco use Take 1 Capsule by mouth in the morning. 90 Capsule 3 024 Active Omeprazole 40 MG Oral Capsule Delayed Release (PriLOSEC) Take 1 Capsule by mouth in the morning. 90 Capsule 3 024 Active Ezetimibe 10 MG Oral Tablet (Zetia)Indicatio ns:Dyslipidemia, goal LDL below 130 TAKE 1 TABLET ONCE DAILY FOR CHOLESTEROL 90 Tablet 3 024 Active Furosemide 20 MG Oral Tablet (Lasix)Indicatio ns:Edema, unspecified type One pill once daily as needed. 30 Tablet 11 024 Active DULoxetine HCl 30 MG Oral Capsule Delayed Release Particles (Cymbalta)Indica tions:Moderate episode of recurrent major depressive disorder (HCC) Take 1 Capsule by mouth in the morning. Do not cut, crush or chew. 90 Capsule 3 024 Active Losartan Potassium 50 MG Oral Tablet (Cozaar) Take 1 Tablet by mouth in the morning and 1 Tablet before bedtime. 60 Tablet 11 024 Active Metoprolol Tartrate 25 MG Oral Tablet (Lopressor) Take 1 Tablet by mouth in the morning and 1 Tablet before bedtime. 60 Tablet 11 024 Active busPIRone HCl 15 MG Oral Tablet (Buspar)Indicati ons:Depression with anxiety Take 1 Tablet by mouth in the morning and 1 Tablet at noon and 1 Tablet before bedtime. 90 Tablet 5 024 Active Escitalopram Oxalate 10 MG Oral Tablet (Lexapro) One pill once daily along with Lexapro 20 mg daily( Total dose of 30 mg daily) 90 Tablet 3 024 Active Escitalopram Oxalate 20 MG Oral Tablet (Lexapro)Indicat ions:Current episode of major depressive disorder without prior episode, unspecified depression episode severity Take 1 Tablet by mouth in the morning. 90 Tablet 3 024 Active Xiidra 5 % Ophthalmic Solution (Lifitegrast) Instill 1 drop into both eyes twice a day 180 Each 1 5 7:01 AM EST 025 Active Famotidine 20 MG Oral Tablet (Pepcid)Indicati ons:Gastroesopha geal reflux disease without esophagitis Take 1 Tablet by mouth at bedtime. 90 Tablet 3 025 Active oxyCODONE HCl 5 MG Oral Tablet (Oxy IR)Indications:C hronic upper back pain Take 1 Tablet by mouth every 8 hours as needed for Pain, Moderate. Continued script 90 Tablet 025 Active Ondansetron HCl 4 MG Oral Tablet (Zofran)Indicati ons:Nausea with vomiting Take 1 Tablet by mouth every 8 hours as needed for Nausea. 20 Tablet 025 Active LORazepam 0.5 MG Oral Tablet (Ativan)Indicati ons:JAYLYN (generalized anxiety disorder) TAKE ONE TABLET BY MOUTH AT BEDTIME NEEDED FOR INSOMNIA 30 Tablet 025 Active Xiidra 5 % Ophthalmic Solution (Lifitegrast) place 1 drop into both eyes twice a day 180 Each 1 4 2:09 PM EDT 024 2024 Discontinued(M edication List Clean Up) oxyCODONE HCl 10 MG Oral Tablet (Roxicodone) 2024 Discontinued oxyCODONE HCl ER 15 MG Oral Tablet ER 12 Hour Abuse-Deterrent (oxyCONTIN) every 12 hours. 2024 Discontinued(P atient preference/dis continuation) documented as of this encounter (statuses as of 10/13/2024) Active Problems Problem Noted Date Diagnosed Date [...] as of this encounter (statuses as of 10/13/2024) Resolved Problems Problem Noted Date Diagnosed Date [...] as of this encounter (statuses as of 10/13/2024) Immunizations Name Administration Dates Next Due COVID-19 mRNA, LNP-s, No Pre serve, 2-Dose Series (GeeYee) 08/20/2020,07/30/2020 Hepatitis B, 20+ yrs 11/03/2002,06/05/2002,05/05 Pneumococcal [...] older, IM (Adacel) 09/29/2011 Varicella Zoster Vaccine Jaden lt (Zostavax) 05/28/2009 documented as of this encounter Social [...] Answer Date Recorded PHQ Adult Total Score 0 10/05/2024 Hunger Vital Sign Answer Date Recorded Within the past 12 months, y ou worried that your food would run out before you got the money to buy more. Never true 10/06/19 25 Within the past 12 months, t he food you bought just didn't last and you didn't have money to get more. Never true 10/05/2024 Childcare Answer Date Recorded Do you feel overwhelmed with taking care of a child, family member or friend? No 10/05/2024 Does your family need help f inding childcare? (Household - for ages 0-17 years) Not on file 10/05/2024 Clothing Answer Date Recorded Have you been unable to get clothing when it was really needed? No 10/05/2024 Is your family able to get c lothes or diapers when needed? (Household - for ages 0-17 years) Not on file 10/05/2024 Personal Safety Answer Date Recorded Do you feel unsafe or have concerns for your saf ety? No 10/05/2024 Do you have concerns for you r family's safety? (Household - for ages 0-17 years) Not on file 10/05/2024 Utilities Answer Date Recorded Do you have trouble paying y our heating, water, or electric bill? No 10/05/2024 Is your family able to pay t he heat, water, or electric bill? (Household - for ages 0-17 years) Not on file 10/05/2024 Does your family have access to good internet? (Household - for ages 0-17 years) Not on file 10/05/2024 Employment Status Answer Date Recorded Are you unemployed or without regular income? No 10/05/2024 Does the household have a re gular source of income? (Household - for ages 0-17 years) Not on file 10/05/2024 Social Connections Answer Date Recorded How often do you feel lonely or isolated from th ose around you? Rarely 10/05/2024 Financial Resource Strain Answer Date R ecorded Do you have any trouble payi ng for your medications, or do you think you might in the future? No 10/05/2024 Does your family have troubl e paying for medicine? (Household - for ages 0-17 years) Not on file 10/05/2024 Transportation Needs Answer Date Record ed Do you have trouble getting a ride to medical visits or work? (Adult - for ages 18 years and over) Not on file 10/05/2024 Does your family have a hard time getting a ride to doctors visits? (Household - for ages 0-17 years) Not on file 10/05/2024 Has lack of transportation k ept you from medical appointments, meetings, work, or from getting things needed for daily living? Check all that apply. No 10/05/2024 Do you (or your family) have trouble finding or paying for a ride (transportation)? (Household - for ages 0-17 years) Not on file 10/05/2024 Housing Stability Answer Date Recorded Do you currently live in a s helter or have no steady place to sleep at night? No 10/05/2024 Do you think you are at risk of becoming homeless? (Adult - for ages 18 years and over) Not on file 10/05/2024 Does your family worry about paying for your home or becoming homeless? (Household - for ages 0-17 years) Not on file 0 10/05/2024 Are you homeless or worried that you might be in the future? No 10/05/2024 Are you (or your family) terence eless [...] the money to buy more. Never true 10/06/19 Within the past 12 months, t he food you bought just didn't last and you didn't have money to get more. Never true 10/05/2024 Do you need food for this week? No 10/05/2024 Comments No Sex and Gender Information Value Date Recorded Sex Assigned at Female 09/12/2018 4:25 PM EDT Legal Sex Female 7:20 AM EST Gender Identity Female 09/12/2018 4:25 PM EDT Sexual Orientation Straight 09/12/2018 4: 25 PM EDT documented as of this encounter Miscellaneous Notes * Addendum Note - Deepti Altamirano RPh - 10/13/2024 3:58 PM EDTAddended by: DEEPTI ALTAMIRANO on: 10/13/2024 03:58 PM Modules accepted: Orders * Telephone Encounter - Deepti Altamirano RPh - 10/13/2024 3:56 PM EDT Please submit PA. Include the following documentation: 10/13/24 OV Please copy and paste the following information into PA form: Prn oxycodone is not controlling her pain Muscle relaxers not helping PDMP checked Pt counseled on side effects What other drugs is there medical record documentation of therapeutic failure on, intolerance to, or contraindication to for this condition? oxycodone Kvng as urgent: Yes Diagnosis/ICD-10 Code(s): S32.599D If instantaneous decision is not received after submitting prior auth, please continue to follow upon this and route back to the [facility] pool if no decision is made by the insurance by 10/17/24, after clarifying with the pharmacy that the claim is still not processing. If PA is denied, please also route back to [facility] pool. Thanks, Deepti Altamirano, [facility] Clinical Pharmacist [facility] ([facility]) [phone] * Telephone Encounter - Jacob Gaviria CPhT - 10/13/2024 3:47 PM EDT Images from the original note were not included. oxyCODONE HCl ER 15 MG This is a new PA request. Upon review of this prior authorization request, I verified this request is appropriate. This is prescribed by a department for which [facility] is authorized to review prior authorizations This is not a duplicate encounter regarding the same prior authorization The patient is planning to use insurance The insurance information listed in previous note is correct and the plan that is requiring prior authorization The insurance does not cover either brand or generic forms of this script as written without prior authorization The insurance does not cover any NDCs of this script without prior authorization RX Estimate tool confirms this script needs prior authorization Started in [facility] but will need to be submitted by prompt pa Of note, there is nothing currently pending in [facility] for this request. Please advise how to proceed. Thank you, Demetrio Gaviria ([facility]) Chief Of Staff Doctor III [facility] ([facility]) 10/13/2024, 3:49 PM * Telephone Encounter - Lori Ortiz OSA - 10/13/2024 9:41 AM EDT Marley calling in asking if a muscle relaxer can be called in because she seems to be in a lot of pain since coming off the meds. She reports she is being given the over the counter meds that were ordered but that is not helping much. She has a as needed oxycodone as well but that is not helping.. There is also concern for depression as well. * Telephone Encounter - Katelyn Roman LPN - 10/12/2024 2:45 PM EDT Order faxed. * Telephone Encounter - Edilia Kenyon MD - 10/12/2024 2:23 PM EDT Noted. Please discontinue Oxycontin 15 mg orally twice daily. Please fax the order to facility. * Telephone Encounter - Katelyn Roman LPN - 10/12/2024 1:49 PM EDT I called and spoke with Marley at [facility] they did receive the prescription for Oxycodone she is doing well with this and it does control her pain well. They will need an order to discontinue the Oxycontin then will need faxed to number provided. * Telephone Encounter - Edilia Kenyon MD - 10/12/2024 1:39 PM EDT I had long discussion with the patient and her son last visit and at that time patient was advised to continue oxycodone only as needed which she was already taking before and continue OxyContin 15 mg 1 pill twice a day which is new for her which was started in rehab in gradually taper it and stop. Please check with the facility whether they have discussed with the patient about stopping the OxyContin and just continue oxycodone which would be my preference to if she has having good pain control with oxycodone. Once confirm then I can discontinue OxyContin and we can fax the order to the facility. Thanks * Telephone Encounter - Cyndee Ibanez CMA - 10/10/2024 2:15 PM EDT Spoke with Joya at [facility] in regards to patient's medication. She states that yesterday shecalled for refill for oxycontin. This prescription was initially given when patient was in [facility]. Patient also has order for Oxycodone 5 mg every 8 hours PRN that was filled. Patient is tolerating the oxycodone well and it is managing her pain. August states that she just needs an order from PCP to discontinue the oxycontin. She would like to have order for med to be discontinued. Once signed, needs to be faxed to [facility] at [phone]. * Telephone Encounter - Oscar Romero OSA - 10/10/2024 2:12 PM EDT Reason for patient's call: Marley calling from [facility] with a medication question. Caller was transferred to Cyndee at the nurse line. documented in this encounter Plan of Treatment Upcoming Encounters Date Type Department Care Team (Late st Contact Info) Description 10/25/2024 10:20 AM EDT Office Visit General Internal Medicine [facility] [place] [address] [place] [address] Edilia Kenyon MD [address] [place] [address] 10/30/2024 10:00 AM EDT Office Visit Ophthalmology, [facility] [address] [place] [phone] Hector Lopze T, DO [address] [place] [address] 01/15/2025 3:30 PM EDT Office Visit Cardiology, [facility] [address] [place] [phone] Kvng Choudhary PA-C [address] [place] [address] 03/22/2025 1:40 PM EDT Office Visit General Internal Medicine [facility] [address] [facility] [place] [address] Edilia Kenyon MD [address] [facility] [place] [address] Health Maintenance Due Date Last Done Comments Adult Wellness Visit 2005 Zoster Vaccines (2 of 3) 07/23/2009 05/28/2009 COVID-19 Vaccine ( season) 2024 11/25/2021, 04/12/2021, 08/20/2020, Additional history exists *BISPHONATE OR OTHER ACCEPTABLE MEDICATION NEEDED FOR OSTEOPOROSIS (REFER TO SMARTSET #1146) 05/09/2024 DXA Scan 04/21/2025 04/21/2023, 06/2022, 08/16/2019, Additional history exists Albumin/Creatinine Ratio 08/31/20252 025, 05/06/2023, 04/09/2016, Additional history exists CKD PHOS USE SMARTSET 72838 08/31/202508/19, 05/04/2023, 12/17/2021, Additional history exists HbA1c 08/31/2025 08/31/2024, 08/19, 03/17/2021, Additional history exists CKD HGB USE SMARTSET 01736 09/27/202509/27, 09/20/2024, 07/20/2024, Additional history exists Depression Monitoring 10/05/2025 10/05/2024 DTap/Tdap Vaccines (3 - Td or Tdap) 05/06/2033 05/06/2023, 09/29/2011 Hepatitis B Vaccine Completed 11/03/2002, 06/05/2002, 05/05/2002 Pneumococcal Vaccine: 50+ Years Completed 09/13/2014, 05/21/2006 Influenza Vaccine (FLU shot) Completed , 03/19/2023, 02/26/2022, Additional history exists VITAMIN D LEVEL ONCE IN A LIFETIME-USE SMARTSET# [id number] Completed 07/20/2024, 05/04/2023, 12/17/2021, Additional history exists [...] pain on left side Chest pain, unspecified Other closed fracture of pubis with routine healing, unspecified laterality, subsequent encounter documented in this encounter Advance Directives Documents on File Type Date Recorded Patient Principal Android 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
--- OUTSIDE RECORDS SUMMARY | 2024-10-14 18:07 | External Medical Summary | Summary of Care ---
Author Name Unknown Organization [facility] Address [address] [facility] [place] [place] [address] Phone [phone] Care Team Providers Care Plastic Duplicator Name Role Phone Edilia Kenyon MD Primary Care Provider + Reason for Visit * Reason Comments Outpatient Testing Encounter Details Date Type Department Care Team (Late st Contact Info) Description 10/13/2024 3:10 PM EDT [facility] [place] [facility] [address] [facility] [place] [address] [place] Laboratory [address] [facility] [place] [address] Other closed fracture of pubis with routine healing, unspecified laterality, subsequent encounter Allergies Active Allergy Reactions Criticality Noted Date [...] this encounter (statuses as of 10/13/2024) Medications Vitamin D3 100 MCG (4000 UT) Oral Capsule (Cholecalciferol) Take by mouth . Active Zoster Vac [...] CHOLESTEROL 90 Tablet 3 11/11/19 24 Active Furosemide 20 MG Oral Tablet [...] morning. 90 Tablet 3 04/11/20 24 Active Xiidra 5 % Ophthalmic Solution (Lifitegrast) Instill 1 drop into both eyes twice a day 180 Each 1 5 7:01 AM EST 08/18/19 25 Active Famotidine 20 MG Oral Tablet (Pepcid)Indicatio ns:Gastroesophage al reflux disease without esophagitis Take 1 Tablet by mouth at bedtime. 90 Tablet 3 09/15/19 25 Active oxyCODONE HCl 5 MG Oral Tablet (Oxy IR)Indications:Ch ronic upper back pain Take 1 Tablet by mouth every 8 hours as needed for Pain, Moderate. Continued script 90 Tablet 10/05/19 25 Active Ondansetron HCl 4 MG Oral Tablet (Zofran)Indicatio ns:Nausea with vomiting Take 1 Tablet by mouth every 8 hours as needed for Nausea. 20 Tablet 10/10/19 25 Active LORazepam 0.5 MG Oral Tablet (Ativan)Indicatio ns:JAYLYN (generalized anxiety disorder) TAKE ONE TABLET BY MOUTH AT BEDTIME NEEDED FOR INSOMNIA 30 Tablet 10/11/19 25 Active methylPREDNISolon e 4 MG Oral Tablet Therapy Pack (Medrol Dosepack) Take 1 Tablet by mouth. 10/12/19 25 Active oxyCODONE HCl ER 15 MG Oral Tablet ER 12 Hour Abuse-Deterrent (oxyCONTIN)Indica tions:Other closed fracture of pubis with routine healing, unspecified laterality, subsequent encounter Take 1 Tablet by mouth in the morning and 1 Tablet before bedtime. 60 Tablet 10/14/19 25 Active Cyclobenzaprine HCl 5 MG Oral Tablet (Flexeril)Indicat ions:Other closed fracture of pubis with routine healing, unspecified laterality, subsequent encounter Take 1 Tablet by mouth 3 times a day as needed for Muscle spasms. 30 Tablet 10/14/19 25 Active Xiidra 5 % Ophthalmic Solution (Lifitegrast) place 1 drop into both eyes twice a day 180 Each 1 4 2:09 PM EDT 12/03/19 24 025 Discontin ued(Medic ation List Clean Up) documented as of this encounter (statuses as [...] 10/05/2024 Does the household have a re lar [...] Office Visit General Internal Medicine [facility] [place] [address] [place] [address] Edilia Kenyon MD [address] [facility] [place] [address] 10/30/2024 10:00 AM EDT Office Visit Ophthalmology, [facility] [address] [place] [phone] Hector Lopez, DO [address] [place], [place] [address] 01/15/2025 3:30 PM EDT Office Visit Cardiology, [facility] [address] [place] [phone] Kvng Choudhary, PA-C [address] [place] [address] 03/22/2025 1:40 PM EDT Office Visit General Internal Medicine [facility] [address] [facility] [place] [address] Edilia Kenyon MD [address] [facility] [place] [address] Pending Results Name Type Priority Associated Diagnoses Date /Time TOXICOLOGY, URINE SCREEN W/ CONFIRMATION Lab Routine Other closed fracture of pubis with routine healing, unspecified laterality, subsequent encounter 10/13/2024 3:11 PM EDT EXTRA URINE ALIQUOT Lab Routine Other closed fracture of pubis with routine healing, unspecified laterality, subsequent encounter 10/13/2024 3:11 PM EDT Health Maintenance Due Date Last Done Comments Adult Wellness Visit 2005 Zoster Vaccines (2 of 3) 07/23/2009 05/28/2009 COVID-19 Vaccine ( season) 2024 11/25/2021, 04/12/2021, 08/20/2020, Additional history exists *BISPHONATE OR OTHER ACCEPTABLE MEDICATION NEEDED FOR OSTEOPOROSIS (REFER TO SMARTSET #1146) 05/09/2024 DXA Scan 04/21/2025 04/21/2023, 06/2022, 08/16/2019, Additional history exists Albumin/Creatinine Ratio 08/31/2025 025, 05/06/2023, 04/09/2016, Additional history exists CKD PHOS USE SMARTSET 79750 08/31/202508/19, 05/04/2023, 12/17/2021, Additional history exists HbA1c 08/31/2025 08/31/2024, 08/19, 03/17/2021, Additional history exists CKD HGB USE SMARTSET 10018 09/27/202509/27, 09/20/2024, 07/20/2024, Additional history exists Depression Monitoring 10/05/2025 10/05/2024 DTap/Tdap Vaccines (3 - Td or Tdap) 05/06/2033 05/06/2023, 09/29/2011 Hepatitis B Vaccine Completed 11/03/2002, 06/05/2002, 05/05/2002 Pneumococcal Vaccine: 50+ Years Completed 09/13/2014, 05/21/2006 Influenza Vaccine (FLU shot) Completed , 03/19/2023, 02/26/2022, Additional history exists VITAMIN D LEVEL ONCE IN A LIFETIME-USE SMARTSET# 63371 Completed 07/20/2024, 05/04/2023, 12/17/2021, Additional history exists [...] Documents on File Type Date Recorded Patient Hand Folder Expl anation Advance Directives and Jayne vanessa Will 12/25/2018 LIVING WILL Power of Staff Nuclear Weapons Officer 12/25/2018 POWER OF A TTORNEY Care Teams Plastic Duplicator Relationship Specialty Start Date End Date Edilia Kenyon MD [address] [place] [address] PCP - General Internal Medicine 07/28/19 documented as of this encounter
--- OUTSIDE RECORDS SUMMARY | 2024-10-14 18:07 | External Medical Summary | Summary of Care ---
Author Name Unknown Organization [facility] Address [address] [place] [address] Phone [phone] Care Team Providers Care Cripple Worker Name Role Phone Edilia Kenyon MD Primary Care Provider + Reason for Referral * Medication Prior Authorization - Closed Specialty Diagnoses / Procedures Referred By Contac t Referred To Contact Diagnoses Other closed fracture of pubis with routine healing, unspecified laterality, subsequent encounter Holger Rice MD [address] [place] [address] Phone: tel: fax: Referral ID Status Reason Start Date Expiration Date Visits Re quested Visits Authorized [id number] Closed 999 999 * Evaluate & Treat - Unlimited Visits (Within 10 days (routine)) - Authorized Specialty Diagnoses / Procedures Referred By Contac t Referred To Contact Pharmacist / Pharmacy Diagnoses Other closed fracture of pubis with routine healing, unspecified laterality, subsequent encounter Holger Rice MD [address] [place] [address] Phone: tel: fax: Referral ID Status Reason Start Date Expiration Date Visits Requested Visits Authorized [id number] Authorized Specialty Services Required 10/13/2024 04/11/2025 99 99 Question Answer Referral Priority Within 10 days (routine) Where should this appointment be scheduled? [facility] Referring Provider Role: Primary Care Reason for Referral: Pain Pain Diagnosis: Back pain - Chronic pain with recent hip fracture. Pain Treatment Options: Opioids and/or Non-opioids Does patient have a signed JABIER? This is required for patients on opioids Yes Has patient completed a Urine Drug Screen in the past 3 months? This is required for patients on opioids Yes Pain Treatment Goal: Med Optimization Comments Pharmacist Medication Therapy Management: Minimum frequency patient should be seen in person for medication management: as appropriate per clinical condition and patient status By my signature, I understand that my patient Edith Guerra will have her medication therapy managed by the [facility] ([facility]) per established policies, procedures, and protocols. I also certify that this referral may serve as an initiation of service for the management of drug therapy in the above noted patient. [facility] providers will be responsible for scheduling patient visits, obtaining appropriate laboratory studies, and adjusting medication management therapy per patient's need, in addition to those roles spelled out in the clinic policy, procedures, and drug management protocols. I understand that the service provided by the [facility] is voluntary and have informed patient that they can refuse the service at their discretion. I am aware that the [facility] will provide me with a copy of the patient encounter via my Loginza. I authorize the [facility] to carry out these activities on my behalf. I consider this program to be a necessary part of the patient's medical care. Holger Rice MD Reason for Visit * Reason Comments Acute Pt had a fall on 08/20 01/12. She was admitted to [facility] with Pelvic fracture, then went to [facility] and [place] [facility] [place]. Patient's back/sciatic pain has gotten worse Encounter Details Date Type Department Care Team (Late st Contact Info) Description 10/13/2024 2:20 PM EDT [facility] [address] [phone] Holger Rice MD [address] [place] [address] Other closed fracture of pubis with routine healing, unspecified laterality, subsequent encounter*; Controlled substance agreement signed; Opioid dependence, uncomplicated (HCC) Allergies Active Allergy Reactions Criticality Noted Date [...] NEEDED FOR INSOMNIA 30 Tablet 025 Active methylPREDNISolo ne 4 MG Oral Tablet Therapy Pack (Medrol Dosepack) Take 1 Tablet by mouth. 025 Active oxyCODONE HCl ER 15 MG Oral Tablet ER 12 Hour Abuse-Deterrent (oxyCONTIN)Indic ations:Other closed fracture of pubis with routine healing, unspecified laterality, subsequent encounter Take 1 Tablet by mouth in the morning and 1 Tablet before bedtime. 60 Tablet 025 Active Cyclobenzaprine HCl 5 MG Oral Tablet (Flexeril)Indica tions:Other closed fracture of pubis with routine healing, unspecified laterality, subsequent encounter Take 1 Tablet by mouth 3 times a day as needed for Muscle spasms. 30 Tablet Active Xiidra 5 % Ophthalmic Solution (Lifitegrast) place 1 drop into both eyes twice a day 180 Each 1 4 2:09 PM EDT 024 2024 Discontinued(M edication List Clean Up) oxyCODONE HCl 10 MG Oral Tablet (Roxicodone) 2024 Discontinued oxyCODONE HCl ER 15 MG Oral Tablet ER 12 Hour Abuse-Deterrent (oxyCONTIN)Indic ations:Other closed fracture of pubis with routine healing, unspecified laterality, subsequent encounter Take 1 Tablet by mouth in the morning and 1 Tablet before bedtime. 4 Tablet 025 2024 Discontinued(R efill) documented as of this encounter (statuses as [...] mRNA, LNP-s, No Pre serve, 2-Dose Series ([employer]) 08/20/2020,07/30/2020 Hepatitis B, 20+ yrs 11/03/2002,06/05/2002,05/05 Pneumococcal [...] Sign Reading Time Taken Comments Blood Pressure 166/89 10/13/2024 2:00 PM EDT Pulse 72 10/13/2024 2:00 PM EDT Temperature 36.8 °C (98.3 °F) 10/13/2024 2:00 PM ED T Respiratory Rate 18 10/13/2024 2:00 PM EDT Oxygen Saturation - - Inhaled Oxygen Concentration - - Weight 46.2 kg (101 lb 12.8 oz) 10/13/2024 2:00 PM EDT Height - - Body Mass Index 19.88 07/20/2024 11:20 AM EST documented in this encounter Progress Notes * Holger Rice MD - 10/13/2024 2:14 PM EDT Images from the original note were not included. Subjective Edith Guerra is a 84 year old female that presents for Acute (Pt had a fall on 09/14/24. She was admitted to [facility] with Pelvic fracture, then went to [facility] and [place] [facility] [place]. Patient's back/sciatic pain has gotten worse ) History of Present Illness Edith Guerra is an 84 year old female who presents with uncontrolled pain following a pelvic fracture. She experienced a mechanical fall resulting in a pelvic fracture and was treated at [facility] from September 14, 2024, to September 19, 2024, before being transferred to a rehabilitation facility. Orthopedics recommended weight- bearing as tolerated and pain control without surgery. Despite these measures, her pain has worsened, described as 'excruciating' and radiating from her waist down to her toes bilaterally. She was found to have right lower lobe consolidation following an episode of hypoxia on September 15, 2024, and was treated for pneumonia. At her hospital discharge follow-up on October 03, 2024, she was advised not to drive due to her history of falls and concomitant use of narcotics and anxiety medications. Her current pain management includes oxycodone 5 mg as needed every eight hours, which is no longereffective. She was previously on oxycodone extended-release 15 mg BID with 5 mg q8h PRN, which she found more effective. She also takes lorazepam 0.5 mg nightly as needed for insomnia. Hydroxyzine was discontinued due to fall risk. She has a history of back surgery and reports that her current pain feels similar to previous sciatic pain, which has worsened over time. She was recently prescribed a course of metoprednisolone, which is nearing completion. Her past medical history includes dyslipidemia, prediabetes, hypertrophic cardiomyopathy, hypertension, CKD stage 3A, osteoporosis, and substance use including tobacco, alcohol, opioids, and benzodiazepines. She is currently in a controlled environment at a rehabilitation facility and is expected to remain there for at least another six weeks to two months. Objective BP 166/89 | Pulse 72 | Temp 98.3 °F (36.8 °C) | Resp 18 | Wt 101 lb 12.8 oz (46.2 kg) | BMI 19.88kg/m² | BSA 1.4 m² Physical Exam Physical Exam Vitals reviewed. Constitutional: General: She is not in acute distress. Comments: Frail appearing. Using wheelchair. Cardiovascular: Rate and Rhythm: Normal rate and regular rhythm. Heart sounds: No murmur heard. Pulmonary: Effort: Pulmonary effort is normal. No respiratory distress. Breath sounds: Normal breath sounds. Musculoskeletal: Cervical back: Neck supple. Lymphadenopathy: Cervical: No cervical adenopathy. Neurological: General: No focal deficit present. Mental Status: She is alert. Results RADIOLOGY Pelvic X-ray: Pelvic fracture (09/14/2024) Chest X-ray: Right lower lobe consolidation (09/15/2024) Assessment and Plan Assessment & Plan Uncontrolled pain Chronic pain exacerbated post-pelvic fracture, current regimen ineffective. Previous oxycodone regimen more effective. Discussed opioid risks and need for safe pain management for physical therapy. Considered cross-tolerability with opioid patch and comprehensive plan with pain pharmacist. - Restart oxycodone extended release 15 mg BID. - Continue oxycodone 5 mg q8h PRN for breakthrough pain. - Refer to pain pharmacist for comprehensive pain management plan. - Consider adding Flexeril 5 mg for muscle relaxation. - Complete urine drug screen before pain management referral. Sciatica Severe sciatica, worsening, previous back surgery. Current pain management inadequate. - Continue current pain management plan as outlined under uncontrolled pain. Pelvic fracture Pelvic fracture post-fall, orthopedics advised weight bearing as tolerated and pain control. No surgery required. Substance use (tobacco, alcohol, opioids, benzodiazepines) Substance use includes tobacco, alcohol, opioids, benzodiazepines. Current oxycodone and lorazepam use. Discussed monitoring for substance misuse and careful medication management to avoid adverse effects. - Suspect being in controlled environment where alcohol is not available is at least partially responsible for worsened pain control. - Monitor for signs of substance misuse and adjust medications as needed. Visit Diagnoses and Orders 1. Other closed fracture of pubis with routine healing, unspecified laterality, subsequent encounter PHARMACIST MEDS THERAPY MGMT REFERRAL OP, TOXICOLOGY, URINE SCREEN W/ CONFIRMATION, oxyCODONE HCl ER 15 MG Oral Tablet ER 12 Hour Abuse- Deterrent (oxyCONTIN), Cyclobenzaprine HCl 5 MG Oral Tablet (Flexeril) 2. Controlled substance agreement signed 3. Opioid dependence, uncomplicated (HCC) Wrap-Up Follow Up: Return in about 2 weeks (around 10/27/2024) for Please set up appointment with PCP in the next 2-3 weeks if she has availability.. | For: Please set up appointment with PCP in the next 2-3 weeks if she has availability. | Check-out note: Tox screen today. Holger Rice MD Text in this note was generated using an [employer] documentation service. I discussed the use of a device to record and summarize our discussion today. All persons present during the encounter consented to its use. documented in this encounter Nursing Notes * Florence Bernabe, HEADMASTER/MISTRESS - 10/13/2024 1:59 PM EDT The patient has been properly identified by confirmation of name and date of . Chief Complaint Patient presents with Acute Pt had a fall on 09/14/24. She was admitted to [facility] with Pelvic fracture, then went to [facility] and [place] [facility] [place]. Patient's back/sciatic pain has gotten worse documented in this encounter Miscellaneous Notes * Addendum Note - Holger Rice MD - 10/13/2024 4:33 PM EDTAddended by: HOLGER RICE on: 10/13/2024 04:33 PM Modules accepted: Orders documented in this encounter Plan of Treatment Upcoming Encounters Date Type Department Care Team (Late st Contact Info) Description 10/25/2024 10:20 AM EDT Office Visit General Internal Medicine [facility] [address] [place] [address] Edilia Kenyon MD [address] [place] [address] 10/30/2024 10:00 AM EDT Office Visit Ophthalmology, [facility] [address] [place] [phone] Hcetor Lopez T, [address] [place] [address] 01/15/2025 3:30 PM EDT Office Visit Cardiology, [facility] [address] [place] [phone] Kvng Choudhary PA-C [address] [place] [address] 03/22/2025 1:40 PM EDT Office Visit General Internal Medicine [facility] [address] [place] [address] Edilia Kenyon MD [address] [place] [address] Pending Results Name Type Priority Associated Diagnoses Date /Time TOXICOLOGY, URINE SCREEN W/ CONFIRMATION Lab Routine Other closed fracture of pubis with routine healing, unspecified laterality, subsequent encounter 10/13/2024 3:11 PM EDT Scheduled Orders Name Type Priority Associated Diagnoses Orde r Schedule TOXICOLOGY, URINE SCREEN W/ CONFIRMATION Lab Routine Other closed fracture of pubis with routine healing, unspecified laterality, subsequent encounter Expected: 10/13/2024, Expires: 10/13/2025 Scheduled Referrals Name Type Priority Associated Diagnoses Orde r Schedule PHARMACIST MEDS THERAPY MGMT REFERRAL OP Referral Within 10 days (routine) Other closed fracture of pubis with routine healing, unspecified laterality, subsequent encounter Ordered: 10/13/2024 Health Maintenance Due Date Last Done Comments Adult Wellness Visit 2005 Zoster Vaccines (2 of 3) 07/23/2009 05/28/2009 COVID-19 Vaccine ( season) 2024 11/25/2021, 04/12/2021, 08/20/2020, Additional history exists *BISPHONATE OR OTHER ACCEPTABLE MEDICATION NEEDED FOR OSTEOPOROSIS (REFER TO SMARTSET #1146) 05/09/2024 DXA Scan 04/21/2025 04/21/2023, 06/2022, 08/16/2019, Additional history exists Albumin/Creatinine Ratio 08/31/202508/31/2 025, 05/06/2023, 04/09/2016, Additional history exists CKD PHOS USE SMARTSET 05508 08/31/202508/19, 05/04/2023, 12/17/2021, Additional history exists HbA1c 08/31/2025 08/31/2024, 08/19, 03/17/2021, Additional history exists CKD HGB USE SMARTSET 03843 09/27/202509/27, 09/20/2024, 07/20/2024, Additional history exists Depression Monitoring 10/05/2025 10/05/2024 DTap/Tdap Vaccines (3 - Td or Tdap) 05/06/2033 05/06/2023, 09/29/2011 Hepatitis B Vaccine Completed 11/03/2002, 06/05/2002, 05/05/2002 Pneumococcal Vaccine: 50+ Years Completed 09/13/2014, 05/21/2006 Influenza Vaccine (FLU shot) Completed , 03/19/2023, 02/26/2022, Additional history exists VITAMIN D LEVEL ONCE IN A LIFETIME-USE SMARTSET# 57430 Completed 07/20/2024, 05/04/2023, 12/17/2021, Additional history exists [...] pubis with routine healing, unspecified laterality, subsequent encounter- Primary Controlled substance agreement signed Encounter for long-term (current) use of other medications Opioid dependence, uncomplicated (HCC) documented in this encounter Advance Directives Documents on File Type Date Recorded Patient Career Services Assistant Expl anation Advance Directives and Livin g Will 12/25/2018 LIVING WILL Power of Fire Control Technician G 12/25/2018 POWER OF A TTORNEY Care Teams Cripple Worker Relationship Specialty Start Date End Date Edilia Kenyon MD [address] [place] [address] PCP - General Internal Medicine 07/28/19 documented as of this encounter"
--- OUTSIDE RECORDS SUMMARY | 2024-10-14 18:07 | External Medical Summary | Summary of Care ---
Author Name Unknown Organization [facility] Address [address] [place] [address] Phone [phone] Care Team Providers Care Metal Alloy Scientist Name Role Phone Edilia Kenyon MD Primary Care Provider + Reason for Visit * Reason Onset Date Comments Medication Question 10/10/2024 Encounter Details Date Type Department Care Team (Late st Contact Info) Description 10/10/2024 Telephone General Internal Medicine [facility] [address] [place] [address] Edilia Kenyon MD [address] [facility] [place] [address] Medication Question Allergies Active Allergy Reactions Criticality [...] mRNA, LNP-s, No Pre serve, 2-Dose Series ([employer]) 08/20/2020,07/30/2020 Hepatitis B, 20+ yrs 11/03/2002,06/05/2002,05/05 Pneumococcal [...] upon this and route back to the [facility] pool if no decision is made by the insurance by 10/17/24, after clarifying with the pharmacy that the claim is still not processing. If PA is denied, please also route back to [facility] pool. Thanks, Deepti Altamirano, [facility] Clinical Pharmacist [facility] ([facility]) [phone] * Telephone Encounter - Jacob Gaviria CPhT - 10/13/2024 3:47 PM EDT Images from the original note were not included. oxyCODONE HCl ER 15 MG This is a new [place] request. Upon review of this prior authorization request, I verified this request is appropriate. This is prescribed by a department for which [facility] is authorized to review prior authorizations This [...] this script needs prior authorization Started in [facility] but will need to be submitted by prompt pa Of note, there is nothing currently pending in [facility] for this request. Please advise how to proceed. Thank you, Demetrio Gaviria ([facility]) Quarter Lining Smoother III [facility] ([facility]) 10/13/2024, [...] I called and spoke with Marley at [facility] they did receive the prescription [...] 2:15 PM EDT Spoke with Joya at [facility] in regards to patient's medication. She states that yesterday shecalled for refill for oxycontin. This prescription was initially given when patient was in [facility]. Patient also has order for Oxycodone 5 mg every 8 hours PRN that was filled. Patient is tolerating the oxycodone well and it is managing her pain. August states that she just needs an order from PCP to discontinue the oxycontin. She would like to have order for med to be discontinued. Once signed, needs to be faxed to [facility] at [phone]. * Telephone Encounter - Oscar Romero OSA - 10/10/2024 2:12 PM EDT Reason for patient's call: Marley calling from [facility] with a medication question. Caller was transferred to Cyndee at the nurse line. documented in this encounter Plan of Treatment Upcoming Encounters Date Type Department Care Team (Late st Contact Info) Description 10/25/2024 10:20 AM EDT Office Visit General Internal Medicine [facility] [place] [address] [place] [address] Edilia Kenyon MD [address] [place] [address] 10/30/2024 10:00 AM EDT Office Visit Ophthalmology, [facility] [address] [place] [phone] Hector Lopez T, DO [address] [place] [address] 01/15/2025 3:30 PM EDT Office Visit Cardiology, [facility] [address] [place] [phone] Kvng Choudhary PA-C [address] [place] [address] 03/22/2025 1:40 PM EDT Office Visit General Internal Medicine [facility] [address] [facility] [place] [address] Edilia Kenyon MD [address] [facility] [place] [address] Health Maintenance Due Date Last Done Comments [...] Additional history exists CKD PHOS USE SMARTSET 52053 08/31/202508/19, 05/04/2023, 12/17/2021, Additional history exists HbA1c 08/31/2025 08/31/2024, 08/19, 03/17/2021, Additional history exists CKD HGB USE SMARTSET 57781 09/27/202509/27, 09/20/2024, 07/20/2024, Additional history exists Depression Monitoring 10/05/2025 10/05/2024 DTap/Tdap Vaccines (3 - Td or Tdap) 05/06/2033 05/06/2023, 09/29/2011 Hepatitis B Vaccine Completed 11/03/2002, 06/05/2002, 05/05/2002 Pneumococcal Vaccine: 50+ Years Completed 09/13/2014, 05/21/2006 Influenza Vaccine (FLU shot) Completed , 03/19/2023, 02/26/2022, Additional history exists VITAMIN D LEVEL ONCE IN A LIFETIME-USE SMARTSET# [id number] Completed 07/20/2024, 05/04/2023, 12/17/2021, Additional history exists [...] Documents on File Type Date Recorded Patient Inclined Railway Operator Expl anation Advance Directives and Livin g Will 12/25/2018 LIVING WILL Power of Seo Specialist 12/25/2018 POWER OF A TTORNEY Care Teams Metal Alloy Scientist Relationship Specialty Start Date End Date Edilia Kenyon MD [address] [facility] [place] [address] PCP - General Internal Medicine 07/28/19 documented as of this encounter
--- OUTSIDE RECORDS SUMMARY | 2024-10-14 18:07 | External Medical Summary | Continuity of Care Document ---
Author Name Unknown Organization [facility] [address] [id number] Address [address] [place] [address] [id number] Care Team Providers Care Bog Worker Name Role Phone Kostas Edilia Chandler Primary Care Physician [phone] [id number] Date(s): 10/11/24 - 10/11/24 [facility] 0 [facility] Medicine [address] [place] [id number] Encounter Diagnosis Fracture of multiple pubic rami with delayed healing(Discharge Diagnosis) - 10/11/24 Sacroiliac joint dysfunction of right side(Discharge Diagnosis) - 10/11/24 Sciatic neuritis(Discharge Diagnosis) - 10/11/24 Discharge Disposition: Home or Self Care Attending Physician: AVIVA Arthur Dennis Encounter Type: Clinic Allergies, Adverse Reactions, Alerts Substance Criticality Severity Reaction Reaction Severity Status pravastatin liver complications Active statins Muscle Pain Active NSAIDs Anaphylaxis Active Aspirin EC Urticaria Active valACYclovir kidney injury Act nathanael Medications busPIRone 30 mg oral tablet Start: 10/11/24 9:37:00 AM EDT, 1 tab, PO, bid Start Date: 10/11/24 Status: Ordered Repeat number: 1 DULoxetine 30 mg oral delayed release capsule Start: 10/11/24 9:36:00 AM EDT, 1 cap, PO, Daily Start Date: 10/11/24 Status: Ordered Repeat number: 1 escitalopram 20 mg oral tablet Start: 10/11/24 9:36:00 AM EDT, 1 tab, PO, Daily Start Date: 10/11/24 Status: Ordered Repeat number: 1 ezetimibe 10 mg oral tablet Start: 10/11/24 9:37:00 AM EDT, 1 tab, PO, Daily Start Date: 10/11/24 Status: Ordered Repeat number: 1 famotidine 20 mg oral tablet Start: 10/11/24 9:37:00 AM EDT, 1 tab, PO, Daily Start Date: 10/11/24 Status: Ordered Repeat number: 1 fenofibrate 67 mg oral capsule Start: 10/11/24 9:36:00 AM EDT, 1 cap, PO, Daily Start Date: 10/11/24 Status: Ordered Repeat number: 1 furosemide 20 mg oral tablet Start: 10/11/24 9:36:00 AM EDT, 1 tab, PO, Daily Start Date: 10/11/24 Status: Ordered Repeat number: 1 hydrOXYzine hydrochloride 25 mg oral tablet Start: 10/11/24 9:36:00 AM EDT, 1 tab, PO, qid, PRN: as needed for anxiety Start Date: 10/11/24 Status: Ordered Repeat number: 1 LORazepam 0.5 mg oral tablet Start: 10/11/24 9:35:00 AM EDT, 1 tab, PO, Daily, PRN: as needed for anxiety Start Date: 10/11/24 Status: Ordered Repeat number: 1 losartan 50 mg oral tablet Start: 10/11/24 9:36:00 AM EDT, 1 tab, PO, Daily Start Date: 10/11/24 Status: Ordered Repeat number: 1 Medrol Dosepak 4 mg oral tablet Start: 10/11/24 10:25:00 AM EDT, See Instructions, Disp# 21 tab, Take as directed on package labeling for 6 days., Pharmacy: [id number] Start Date: 10/11/24 Stop Date: 10/17/24 Status: Ordered Quantity: 21.0 Unit: tab Repeat number: 1 Indications: Other specified fracture of unspecified pubis, subsequent encounter for fracture with delayed healing; Sacrococcygeal disorders, not elsewhere classified; Sciatica, unspecified side; Metoprolol Tartrate 25 mg oral tablet Start: 10/11/24 9:36:00 AM EDT Start Date: 10/11/24 Status: Ordered Repeat number: 1 omeprazole 40 mg oral delayed release capsule Start: 10/11/24 9:36:00 AM EDT, 1 cap, PO, Daily Start Date: 10/11/24 Status: Ordered Repeat number: 1 ondansetron 4 mg oral tablet Start: 10/11/24 9:36:00 AM EDT, 1 tab, PO, ONCE, PRN: as needed for nausea/vomiting Start Date: 10/11/24 Status: Ordered Repeat number: 1 oxyCODONE 5 mg oral tablet Start: 10/11/24 9:35:00 AM EDT, 1 tab, PO, q4h, Refills: 0, PRN: as needed for pain Start Date: 10/11/24 Status: Ordered Repeat number: 1 oxyCODONE 5 mg oral tablet Start: 10/11/24 10:18:00 AM EDT, See Instructions, Disp# 28 tab, Refills: 0, 1-2 tab PO q4h, PRN: asneeded for pain, Pharmacy: [facility] Start Date: 10/11/24 Status: Ordered Quantity: 28.0 Unit: tab Repeat number: 1 Indications: Other specified fracture of unspecified pubis, subsequent encounter for fracture with delayed healing; Sacrococcygeal disorders, not elsewhere classified; Sciatica, unspecified side; Problem List No Chronic Problems Diagnosis Diagnosis Type Effective Dates Health Status Clinical Service Informant Fracture of multiple pubic rami with delayed healing Discharge Diagnosis 10/11/24 Sacroiliac joint dysfunction of right side Discharge Diagnosis 10/11/24 Sciatic neuritis Discharge Diagnosis 10/11/24 Social History Social History Type Response Sex Female Sex Representation Female (finding) Patient Care team information Care Team Personnel Name: MD Kenyon Manisha N Position: Referring DIRECT Member Role: Primary Care Provider Address: [address] [place] [address] Telecom: [phone] Care Team Related Persons Name: MARY GTZ Name: PACO JACKSON Insurance Providers Guarantor name: MARY DUPONT Health Plan Information #: 1 Payer: [employer] HEALTH PLAN Member Number: [id number] Policy Number: NA Group Number: [id number] Payer Identifier: [id number] Health Plan Information #: 2 Payer: SELF PAY Member Number: NA Policy Number: NA Group Number: NA Payer Identifier: [id number] Health Plan Information #: 3 Payer: [employer] HE[employer] PLAN Member Number: [id number] Policy Number: NA Group Number: NA Payer Identifier: [id number] Health Plan Information #: 4 Payer: MEDICARE Member Number: NA Policy Number: NA Group Number: NA Payer Identifier: [id number]
--- OUTSIDE RECORDS SUMMARY | 2024-10-14 18:07 | External Medical Summary | Summary of Care ---
Author Name Unknown Organization [facility] Address [address] [place] [address] Phone [phone] Care Team Providers Care Supervisor Inspecting Name Role Phone Edilia Kenyon MD Primary Care Provider + Reason for Visit * Reason Onset Date Comments Medication Question 10/10/2024 Encounter Details Date Type Department Care Team (Late st Contact Info) Description 10/10/2024 Telephone General Internal Medicine [facility] [address] [place] [address] Edilia Kenyon MD [address] [place] [address] Medication Question Allergies Active Allergy Reactions Criticality [...] as of this encounter (statuses as of 10/14/2024) Medications HM Vitamin D3 100 MCG (4000 [...] as of this encounter (statuses as of 10/14/2024) Active Problems Problem Noted Date Diagnosed Date [...] as of this encounter (statuses as of 10/14/2024) Resolved Problems Problem Noted Date Diagnosed Date [...] as of this encounter (statuses as of 10/14/2024) Immunizations Name Administration Dates Next Due COVID-19 mRNA, LNP-s, No Pre serve, 2-Dose Series ([employer]) 08/20/2020,07/30/2020 Hepatitis B, 20+ yrs 11/03/2002,06/05/2002,05/05 Pneumococcal [...] encounter Miscellaneous Notes * Telephone Encounter - Susie Valencia CPhT - 10/14/2024 9:20 AM EDT Patients insurance would like to inform the office that oxyCODONE HCl ER 15 MG Oral Tablet ER 12 Hour Abuse-Deterrent (oxyCONTIN) is requiring additional information: has pt tried/ failed fentanyl, morphine ER, or tramadol ER. Prior authorization entered in [facility] at [facility]. EOC# [id number] Please send to [facility] before 11:30am today 10/14/24. Thank you, Susie Valencia CPhT II Powder Line Repairer [facility] ([facility]) 10/14/2024, 9:20 AM * Addendum Note - Deepti Pal [facility] - 10/13/2024 3:58 PM EDTAddended by: DEEPTI PAL on: 10/13/2024 03:58 PM Modules accepted: Orders * Telephone Encounter - Deepti Pal [facility] - 10/13/2024 3:56 PM EDT Please submit [...] upon this and route back to the [facility] pool if no decision is made by the insurance by 10/17/24, after clarifying with the pharmacy that the claim is still not processing. If PA is denied, please also route back to [facility] pool. Thanks, Deepti Pal [facility] Clinical Pharmacist [facility] ([facility]) [phone] * Telephone Encounter - Jacob Gaviria CPhT - 10/13/2024 3:47 PM EDT Images from the original note were not included. oxyCODONE HCl ER 15 MG This is a new PA request. Upon review of this prior authorization request, I verified this request is appropriate. This is prescribed by a department for which [facility] is authorized to review prior authorizations This [...] this script needs prior authorization Started in [facility] but will need to be submitted by prompt pa Of note, there is nothing currently pending in [facility] for this request. Please advise how to proceed. Thank you, Demetrio Gaviria ([facility]) Powder Line Repairer III [facility] ([facility]) 10/13/2024, 3:49 PM [...] I called and spoke with Marley at [facility] they did receive the prescription for Oxycodone [...] 2:15 PM EDT Spoke with Joya at [facility] in regards to patient's medication. She states that yesterday shecalled for refill for oxycontin. This prescription was initially given when patient was in [facility]. Patient also has order for Oxycodone 5 mg every 8 hours PRN that was filled. Patient is tolerating the oxycodone well and it is managing her pain. August states that she just needs an order from PCP to discontinue the oxycontin. She would like to have order for med to be discontinued. Once signed, needs to be faxed to Suzanne at [phone]. * Telephone Encounter - Oscar Romero OSA - 10/10/2024 2:12 PM EDT Reason for patient's call: Marley calling from [facility] with a medication question. Caller was transferred to [facility] at the nurse line. documented in this encounter Plan of Treatment Upcoming Encounters Date Type Department Care Team (Late st Contact Info) Description 10/25/2024 10:20 AM EDT Office Visit General Internal Medicine [facility] [address] [place] [address] Edilia Kenyon MD [address] [place] [address] 10/30/2024 10:00 AM EDT Office Visit Ophthalmology, [facility] [address] [place] [phone] Hector Lopez, DO [address] [place] [address] 01/15/2025 3:30 PM EDT Office Visit Cardiology, [facility] [address] [place] [phone] Kvng Choudhary, PA-C [address] [place] [address] 03/22/2025 1:40 PM EDT Office Visit General Internal Medicine [facility] [address] [place] [address] Edilia Kenyon MD [address] [facility] [place] [address] Health Maintenance Due Date Last Done Comments Adult Wellness Visit 2005 Zoster Vaccines (2 of 3) 07/23/2009 05/28/2009 COVID-19 Vaccine ( season) 2024 11/25/2021, 04/12/2021, 08/20/2020, Additional history exists *BISPHONATE OR OTHER ACCEPTABLE MEDICATION NEEDED FOR OSTEOPOROSIS (REFER TO SMARTSET #1146) 05/09/2024 DXA Scan 04/21/2025 04/21/2023, 11/0 06/2022, 08/16/2019, Additional history exists Albumin/Creatinine Ratio 08/31/2025 025, 05/06/2023, 04/09/2016, Additional history exists CKD PHOS USE SMARTSET 74089 08/31/202508/19, 05/04/2023, 12/17/2021, Additional history exists HbA1c 08/31/2025 08/31/2024, 08/19, 03/17/2021, Additional history exists CKD HGB USE SMARTSET 69782 09/27/202509/27, 09/20/2024, 07/20/2024, Additional history exists Depression Monitoring 10/05/2025 10/05/2024 DTap/Tdap Vaccines (3 - Td or Tdap) 05/06/2033 05/06/2023, 09/29/2011 Hepatitis B Vaccine Completed 11/03/2002, 06/05/2002, 05/05/2002 Pneumococcal Vaccine: 50+ Years Completed 09/13/2014, 05/21/2006 Influenza Vaccine (FLU shot) Completed , 03/19/2023, 02/26/2022, Additional history exists VITAMIN D LEVEL ONCE IN A LIFETIME-USE SMARTSET# 21404 Completed 07/20/2024, 05/04/2023, 12/17/2021, Additional history exists [...] Documents on File Type Date Recorded Patient Edging Supervisor Expl anation Advance Directives and Livin g Will 12/25/2018 LIVING WILL Power of Access Rep 12/25/2018 POWER OF A TTORNEY Care Teams Supervisor Inspecting Relationship Specialty Start Date End Date Edilia Kenyon MD [address] [place] [address] PCP - General Internal Medicine 07/28/19 documented as of this encounter
--- OUTSIDE RECORDS SUMMARY | 2024-10-14 18:07 | External Medical Summary | Summary of Care ---
Author Name Unknown Organization [facility] Address [address] [place] [address] Phone [phone] Care Team Providers Care Asphalt Plant Laborer Name Role Phone Edilia Kenyon MD Primary Care Provider + Reason for Referral * Medication Prior Authorization - Closed Specialty Diagnoses / Procedures Referred By Contac t Referred To Contact Diagnoses Other closed fracture of pubis with routine healing, unspecified laterality, subsequent encounter Holger Rice MD [address] [place] [address] Phone: tel: fax: Referral ID Status Reason Start Date Expiration Date Visits Re quested Visits Authorized [id number] Closed 999 999 * Evaluate & Treat - Unlimited Visits (Within 10 days (routine)) - Authorized Specialty Diagnoses / Procedures Referred By Contac t Referred To Contact Pharmacist / Pharmacy Diagnoses Other closed fracture of pubis with routine healing, unspecified laterality, subsequent encounter Holger Rice MD [address] [place] [address] Phone: tel: fax: Referral ID Status Reason Start Date Expiration Date Visits Requested Visits Authorized [id number] Authorized Specialty Services Required 10/13/2024 04/11/2025 99 [...] have her medication therapy managed by the [facility] ([facility]) per established policies, procedures, and protocols. I also certify that this referral may serve as an initiation of service for the management of drug therapy in the above noted patient. [facility] providers will be responsible for scheduling patient visits, obtaining appropriate laboratory studies, and adjusting medication management therapy per patient's need, in addition to those roles spelled out in the clinic policy, procedures, and drug management protocols. I understand that the service provided by the [facility] is voluntary and have informed patient that they can refuse the service at their discretion. I am aware that the [facility] will provide me with a copy of the patient encounter via my Spazz[employer]. I authorize the [facility] to carry out these activities on my behalf. I consider this program to be a necessary part of the patient's medical care. Holger Rice MD Reason for Visit * Reason Comments Acute Pt had a fall on 08/20 01/12. She was admitted to [facility] with Pelvic fracture, then went to [facility] and now is at [facility] for rehab. Patient's back/sciatic pain has gotten worse Encounter Details Date Type Department Care Team (Late st Contact Info) Description 10/13/2024 2:20 PM EDT [facility] [place] [address] [phone] Holger Rice MD [address] [place] [address] Other closed fracture of pubis with routine [...] mRNA, LNP-s, No Pre serve, 2-Dose Series ([employer]) 08/20/2020,07/30/2020 Hepatitis B, 20+ yrs 11/03/2002,06/05/2002,05/05 Pneumococcal [...] fall on 09/14/24. She was admitted to [facility] with Pelvic fracture, then went to [facility] and now is at [facility] for rehab. Patient's back/sciatic pain has gotten worse ) History of Present Illness Edith Guerra is an 84 year old female who presents with uncontrolled pain following a pelvic fracture. She experienced a mechanical fall resulting in a pelvic fracture and was treated at [facility] from September 14, 2024, to September [...] in this note was generated using an [employer] documentation service. I discussed the use of a device to record and summarize our discussion today. All persons present during the encounter consented to its use. documented in this encounter Nursing Notes * Florence Bernabe, GENERAL EDUCATION PROFESSOR - 10/13/2024 1:59 PM EDT The patient has been properly identified by confirmation of name and date of . Chief Complaint Patient presents with Acute Pt had a fall on 09/14/24. She was admitted to [facility] with Pelvic fracture, then went to [facility] and now is at [facility] for rehab. Patient's back/sciatic pain has gotten [...] AM EDT Office Visit General Internal Medicine [facility] [address] [place] [address] Edilia Kenyon MD [address] [place] [address] 10/30/2024 10:00 AM EDT Office Visit Ophthalmology, [facility] [address] [place] [phone] Hector Lopez T, [address] [place] [address] 01/15/2025 3:30 PM EDT Office Visit Cardiology, [facility] [address] [place] [phone] Kvng Choudhary PA-C [address] [place] [address] 03/22/2025 1:40 PM EDT Office Visit General Internal Medicine [facility] [address] [place] [address] Edilia Kenyon MD [address] [place] [address] Pending Results Name Type Priority Associated Diagnoses [...] Additional history exists CKD PHOS USE SMARTSET 57369 08/31/202508/19, 05/04/2023, 12/17/2021, Additional history exists HbA1c 08/31/2025 08/31/2024, 08/19, 03/17/2021, Additional history exists CKD HGB USE SMARTSET 77773 09/27/202509/27, 09/20/2024, 07/20/2024, Additional history exists Depression Monitoring 10/05/2025 10/05/2024 DTap/Tdap Vaccines (3 - Td or Tdap) 05/06/2033 05/06/2023, 09/29/2011 Hepatitis B Vaccine Completed 11/03/2002, 06/05/2002, 05/05/2002 Pneumococcal Vaccine: 50+ Years Completed 09/13/2014, 05/21/2006 Influenza Vaccine (FLU shot) Completed , 03/19/2023, 02/26/2022, Additional history exists VITAMIN D LEVEL ONCE IN A LIFETIME-USE SMARTSET# 50274 Completed 07/20/2024, 05/04/2023, 12/17/2021, Additional history exists [...] Documents on File Type Date Recorded Patient Rn Psych Expl anation Advance Directives and Livin g Will 12/25/2018 LIVING WILL Power of Construction Coordinator 12/25/2018 POWER OF A TTORNEY Care Teams Asphalt Plant Laborer Relationship Specialty Start Date End Date Edilia Kenyon MD [address] [place] [address] PCP - General Internal Medicine 07/28/19 documented as of this encounter"
--- OUTSIDE RECORDS SUMMARY | 2024-10-14 18:07 | External Medical Summary | Summary of Care ---
Author Name Unknown Organization [facility] Address [address] [place] [address] Phone [phone] Care Team Providers Care Composition Teacher Name Role Phone Edilia Kenyon MD Primary Care Provider + Reason for Visit * Reason Onset Date Comments Medication Question 10/10/2024 Encounter Details Date Type Department Care Team (Late st Contact Info) Description 10/10/2024 Telephone General Internal Medicine [facility] [address] [place] [address] Edilia Kenyon MD [address] [place] [facility] [address] Medication Question Allergies Active Allergy Reactions Criticality [...] mRNA, LNP-s, No Pre serve, 2-Dose Series ([employer]) 08/20/2020,07/30/2020 Hepatitis B, 20+ yrs 11/03/2002,06/05/2002,05/05 Pneumococcal [...] upon this and route back to the [facility] pool if no decision is made by the insurance by 10/17/24, after clarifying with the pharmacy that the claim is still not processing. If PA is denied, please also route back to [facility] pool. Thanks, Deepti Altamirano, [facility] Clinical Pharmacist [facility] ([facility]) [phone] * Telephone Encounter - Jacob Gaviria CPhT - 10/13/2024 3:47 PM EDT Images from the original note were not included. oxyCODONE HCl ER 15 MG This is a new PA request. Upon review of this prior authorization request, I verified this request is appropriate. This is prescribed by a department for which [facility] is authorized to review prior authorizations [...] this script needs prior authorization Started in [facility] but will need to be submitted by prompt pa Of note, there is nothing currently pending in [facility] for this request. Please advise how to proceed. Thank you, Demetrio Gaviria ([facility]) Boil Off Worker III [facility] ([facility]) 10/13/2024, [...] I called and spoke with Marley at [facility] they did receive the prescription for Oxycodone [...] 2:15 PM EDT Spoke with Joya at [facility] in regards to patient's medication. She states that yesterday shecalled for refill for oxycontin. This prescription was initially given when patient was in [facility]. Patient also has order for Oxycodone 5 mg every 8 hours PRN that was filled. Patient is tolerating the oxycodone well and it is managing her pain. August states that she just needs an order from PCP to discontinue the oxycontin. She would like to have order for med to be discontinued. Once signed, needs to be faxed to [facility] at [phone]. * Telephone Encounter - Oscar Romero OSA - 10/10/2024 2:12 PM EDT Reason for patient's call: Marley calling from [facility] with a medication question. Caller was transferred to Cyndee at the nurse line. documented in this encounter Plan of Treatment Upcoming Encounters Date Type Department Care Team (Late st Contact Info) Description 10/25/2024 10:20 AM EDT Office Visit General Internal Medicine [facility] [place] [address] [place] [address] Edilia Kenyon MD [address] [place] [address] 10/30/2024 10:00 AM EDT Office Visit Ophthalmology, [facility] [address] [place] [phone] Hector Lopez T, DO [address] [place] [address] 01/15/2025 3:30 PM EDT Office Visit Cardiology, [facility] [address] [place] [phone] Kvng Choudhary PA-C [address] [place] [address] 03/22/2025 1:40 PM EDT Office Visit General Internal Medicine [facility] [address] [facility] [place] [address] Edilia Kenyon MD [address] [facility] [place] [address] Health Maintenance Due Date Last Done Comments [...] Additional history exists CKD PHOS USE SMARTSET 93074 08/31/202508/19, 05/04/2023, 12/17/2021, Additional history exists HbA1c 08/31/2025 08/31/2024, 08/19, 03/17/2021, Additional history exists CKD HGB USE SMARTSET 02411 09/27/202509/27, 09/20/2024, 07/20/2024, Additional history exists Depression Monitoring 10/05/2025 10/05/2024 DTap/Tdap Vaccines (3 - Td or Tdap) 05/06/2033 05/06/2023, 09/29/2011 Hepatitis B Vaccine Completed 11/03/2002, 06/05/2002, 05/05/2002 Pneumococcal Vaccine: 50+ Years Completed 09/13/2014, 05/21/2006 Influenza Vaccine (FLU shot) Completed , 03/19/2023, 02/26/2022, Additional history exists VITAMIN D LEVEL ONCE IN A LIFETIME-USE SMARTSET# 20942 Completed 07/20/2024, 05/04/2023, 12/17/2021, Additional history exists [...] Documents on File Type Date Recorded Patient Graphic Engineer Expl anation Advance Directives and Livin g Will 12/25/2018 LIVING WILL Power of Logistics System Engineer 12/25/2018 POWER OF A TTORNEY Care Teams Composition Teacher Relationship Specialty Start Date End Date Edilia Kenyon MD [address] [facility] [place] [address] PCP - General Internal Medicine 07/28/19 documented as of this encounter
--- OUTSIDE RECORDS SUMMARY | 2024-10-14 18:08 | External Medical Summary | Summary of Care ---
Author Name Unknown Organization [facility] Address [address] [place] [address] Phone [phone] Care Team Providers Care Manager Of Customer Billing Name Role Phone Edilia Kenyon MD Primary Care Provider + Reason for Visit * Reason Onset Date Comments Medication Question 10/10/2024 Encounter Details Date Type Department Care Team (Late st Contact Info) Description 10/10/2024 Telephone General Internal Medicine [facility] [address] [place] [address] Edilia Kenyon MD [address] [place] [facility] [place] [address] Medication Question Allergies Active Allergy Reactions Criticality [...] as of this encounter (statuses as of 10/12/2024) Medications HM Vitamin D3 100 MCG (4000 [...] FOR INSOMNIA 30 Tablet 10/11/19 25 Active oxyCODONE HCl 10 MG Oral Tablet (Roxicodone) Active oxyCODONE HCl ER 15 MG Oral Tablet ER 12 Hour Abuse-Deterrent (oxyCONTIN) every 12 hours. 025 Discontin ued(Patie nt preferenc e/discont inuation) documented as of this encounter (statuses as of 10/12/2024) Active Problems Problem Noted Date Diagnosed Date [...] as of this encounter (statuses as of 10/12/2024) Resolved Problems Problem Noted Date Diagnosed Date [...] as of this encounter (statuses as of 10/12/2024) Immunizations Name Administration Dates Next Due COVID-19 [...] encounter Miscellaneous Notes * Telephone Encounter - Katelyn Roman LPN - 10/12/2024 2:45 PM EDT Order faxed. * Telephone Encounter - Edilia Kenyon MD - 10/12/2024 2:23 PM EDT Noted. Please discontinue Oxycontin 15 mg orally twice daily. Please fax the order to facility. * Telephone Encounter - Katelyn Roman LPN - 10/12/2024 1:49 PM EDT I called and spoke with Marley at [facility] they did receive the prescription [...] PM EDT Spoke with Joya at [facility] in regards to patient's medication. She states that yesterday shecalled for refill for oxycontin. This prescription was initially given when patient was in [facility]. Patient also has order for Oxycodone 5 mg every 8 hours PRN that was filled. Patient is tolerating the oxycodone well and it is managing her pain. August states that she just needs an order from PCP to discontinue the oxycontin. She would like to have order for med to be discontinued. Once signed, needs to be faxed to [facility] at [phone]. * Telephone Encounter - Oscar Romero OSA - 10/10/2024 2:12 PM EDT Reason for patient's call: Marley calling from [facility] with a medication question. Caller was transferred to Cyndee at the nurse line. documented in this encounter Plan of Treatment Upcoming Encounters Date Type Department Care Team (Late st Contact Info) Description 10/30/2024 10:00 AM EDT Office Visit Ophthalmology, [facility] [address] [place] [phone] Hector Lopez, DO [address] [place] [address] 01/15/2025 3:30 PM EDT Office Visit Cardiology, [facility] [address] [place] [phone] Kvng Choudhary PA-C [address] [place] [address] 03/22/2025 1:40 PM EDT Office Visit General Internal Medicine [facility] [address] [facility] [place] [address] Edilia Kenyon MD [address] [facility] [place] [address] Health Maintenance Due Date Last Done Comments [...] Additional history exists CKD PHOS USE SMARTSET 40155 08/31/202508/19, 05/04/2023, 12/17/2021, Additional history exists HbA1c 08/31/2025 08/31/2024, 08/19, 03/17/2021, Additional history exists CKD HGB USE SMARTSET 48908 09/27/202509/27, 09/20/2024, 07/20/2024, Additional history exists Depression Monitoring 10/05/2025 10/05/2024 DTap/Tdap Vaccines (3 - Td or Tdap) 05/06/2033 05/06/2023, 09/29/2011 Hepatitis B Vaccine Completed 11/03/2002, 06/05/2002, 05/05/2002 Pneumococcal Vaccine: 50+ Years Completed 09/13/2014, 05/21/2006 Influenza Vaccine (FLU shot) Completed , 03/19/2023, 02/26/2022, Additional history exists VITAMIN D LEVEL ONCE IN A LIFETIME-USE SMARTSET# 21366 Completed 07/20/2024, 05/04/2023, 12/17/2021, Additional history exists [...] Documents on File Type Date Recorded Patient Load Dispatcher Expl anation Advance Directives and Livin g Will 12/25/2018 LIVING WILL Power of Compliance Manager 12/25/2018 POWER OF A TTORNEY Care Teams Manager Of Customer Billing Relationship Specialty Start Date End Date Edilia Kenyon MD [address] [place] [address] PCP - General Internal Medicine 07/28/19 documented as of this encounter
--- OUTSIDE RECORDS SUMMARY | 2024-10-14 18:08 | External Medical Summary ---
Author Name Unknown Address Unknown Organization K01:[facility] [address] [place] [address] Laboratory Report Ordering Provider Test Date Status HOLGER10/13/2024 15:11:43 Final Cutoff Concentrations:
Drug Level
Amphetamines 500 ng/mL
Benzodiazepines 100 ng/mL
Cannabinoids 50 ng/mL
Cocaine Metabolite 150 ng/mL
Fentanyl 1 ng/mL
Hydrocodone / Hydromorphone � 300 ng/mL
Methadone Metabolite 100 ng/mL
Morphine / Codeine 300 ng/mL
Oxycodone / Oxymorphone 100 ng/mL

Screening results are presumptive and can only be used for medical purposes. Positive screening results are reflexed to confirmatory testing. Observation Date Value Abnormality Reference (Units ) Status Amphetamines, Urine screen 10/13/2024 15:11:43 Negative Negative Final Benzodiazepines, Urine screen 10/13/2024 15:11:43 Positive Abnormal Negative Final Cannabinoids, Urine screen 10/13/2024 15:11:43 Negative Negative Final Cocaine Metabolite, Urine screen 10/13/2024 15:11:43 Negative Negative Final fentaNYL [Presence] in Urine by Screen method 10/13/2024 15:11:43 Negative Negative Final HYDROcodone [Presence] in Urine by Screen method 10/13/2024 15:11:43 Negative Negative Final 7-Ffrrtczugr-8,5-Dimeth yl-3,3-Diphenylpyrrolid ine (EDDP) [Presence] in Urine 10/13/2024 15:11:43 Negative Negative Final Opiates, Urine screen 10/13/2024 15:11:43 Negative Negative Final oxyCODONE [Presence] in Urine by Screen method 10/13/2024 15:11:43 Positive Abnormal Negative Final Performing Location [facility] - [address] [facility] [place] [address]
--- OUTSIDE RECORDS SUMMARY | 2024-10-14 18:08 | External Medical Summary | Summary of Care ---
Author Name Unknown Organization [facility] Address [address] [place] [address] Phone [phone] Care Team Providers Care Anthropology Instructor Name Role Phone Edilia Kenyon MD Primary Care Provider + Reason for Visit * Reason Onset Date Comments Med Request 10/09/2024 Encounter Details Date Type Department Care Team (Late st Contact Info) Description 10/09/2024 Telephone General Internal Medicine [facility] [address] [place] [address] Edilia Kenyon MD [address] [place] [facility] [place] [address] Med Request Allergies Active Allergy Reactions Criticality Noted Date [...] CapsuleIndication s:Hypertensive heart 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 failure,Dyslipide brnet, goal LDL below 130,History of tobacco use [...] NEEDED FOR INSOMNIA 30 Tablet 09/14/19 25 025 Discontin ued(Refil l) documented as [...] mRNA, LNP-s, No Pre serve, 2-Dose Series ([email or web address]) 08/20/2020,07/30/2020 Hepatitis B, 20+ yrs 11/03/2002,06/05/2002,05/05 Pneumococcal [...] encounter Miscellaneous Notes * Telephone Encounter - Ida Diaz RN - 10/13/2024 11:[address] Kenyon: patient is currently ordered oxycodone 5 mg every 8 hours. She is currently experiencing high levels of pain. Her last dose of oxycodone was at 0600, can the script be written for every 6 hours? And I can fax it to [facility]. I scheduled an acute visit at [facility] today with Dr Pettit for her pain. They contemplating sending her to ER, but accepted first acute. * Telephone Encounter - Edilia Kenyon MD - 10/12/2024 1:12 PM EDT I see under PDMP and had discussion about long acting oxycontin which was [facility] by [facility] Last prescribed to her on 09/29/24 for 14 days. Paperwork she brought from [facility] at last visit, had Oxycontin and oxycodone both on it. If pt is agreeable, we can certainly stop OxyContin which is long acting and just continue oxycodone 5 mg every 6 hourly as needed. * Telephone Encounter - Ida Diaz RN - 10/10/2024 11:34 AM EDT Spoke with Joya at [facility]. She states that they received a script when patient arrived for oxycotin 15 mg BID, and they are out. Upon reviewing discharge summary from [facility], patient was not discharged on oxycotin 15 mg BID. I am unable to check PDMP. PDMP should list who prescribed the Oxycotnin. Dr Kenyon- please see above. I know we discussed the oxycodone 5 mg as needed, I don't have any record of oxcytonin 15 mg BID. * Telephone Encounter - Soco Cervantes CMA - 10/09/2024 10:14 AM EDT I believe pt needs an appt as PCP did not prescribe this medication. Please advise * Telephone Encounter - Kandi Kendall CPhT - 10/09/2024 9:11 AM EDT Emilia is requesting a refill or OxyContin 15mg ( 1 tab po q12h) emilia informed that this medicationwas prescribed in the hospital at [facility]. Please review. [facility]- [place] Thank you, Kandi Kendall CPhT Wax Coating Machine Tender II [facility] 10/09/2024,9:12 AM documented in this encounter Plan of Treatment Upcoming Encounters Date Type Department Care Team (Late st Contact Info) Description 10/30/2024 10:00 AM EDT Office Visit Ophthalmology, [facility] [address] [place] [phone] Hector Lopez T, DO [address] [place] [address] 01/15/2025 3:30 PM EDT Office Visit Cardiology, [facility] [address] [place] [phone] Kvng Choudhary PA-C [address] [place] [address] 03/22/2025 1:40 PM EDT Office Visit General Internal Medicine [facility] [address] [facility] [place] [address] Edilia Kenyon MD [address] [facility] [place] [address] Health Maintenance Due Date Last Done Comments [...] Additional history exists CKD PHOS USE SMARTSET 07859 08/31/202508/19, 05/04/2023, 12/17/2021, Additional history exists HbA1c 08/31/2025 08/31/2024, 08/19, 03/17/2021, Additional history exists CKD HGB USE SMARTSET 46550 09/27/202509/27, 09/20/2024, 07/20/2024, Additional history exists Depression Monitoring 10/05/2025 10/05/2024 DTap/Tdap Vaccines (3 - Td or Tdap) 05/06/2033 05/06/2023, 09/29/2011 Hepatitis B Vaccine Completed 11/03/2002, 06/05/2002, 05/05/2002 Pneumococcal Vaccine: 50+ Years Completed 09/13/2014, 05/21/2006 Influenza Vaccine (FLU shot) Completed , 03/19/2023, 02/26/2022, Additional history exists VITAMIN D LEVEL ONCE IN A LIFETIME-USE SMARTSET# 84309 Completed 07/20/2024, 05/04/2023, 12/17/2021, Additional history exists [...] Documents on File Type Date Recorded Patient Machine Tool Technician Instructor Expl anation Advance Directives and Livin g Will 12/25/2018 LIVING WILL Power of Student Ministry Pastor 12/25/2018 POWER OF A TTORNEY Care Teams Anthropology Instructor Relationship Specialty Start Date End Date Edilia Kenyon MD [address] [place] [address] PCP - General Internal Medicine 07/28/19 documented as of this encounter
--- OUTSIDE RECORDS SUMMARY | 2024-10-14 18:08 | External Medical Summary | Summary of Care ---
Author Name Unknown Organization [facility] Address [address] [place] [address] Phone [phone] Care Team Providers Care Tub Wash Operator Name Role Phone Edilia Kenyon MD Primary Care Provider + Reason for Visit * Reason Onset Date Comments Medication Question 10/10/2024 Encounter Details Date Type Department Care Team (Late st Contact Info) Description 10/10/2024 Telephone General Internal Medicine [facility] [address] [place] [address] Edilia Kenyon MD [address] [facility] [place] [address] Medication Question Allergies Active Allergy Reactions Criticality [...] mRNA, LNP-s, No Pre serve, 2-Dose Series ([employer]) 08/20/2020,07/30/2020 Hepatitis B, 20+ yrs 11/03/2002,06/05/2002,05/05 Pneumococcal [...] encounter Miscellaneous Notes * Telephone Encounter - Lori Ortiz OSA [...] I called and spoke with Marley at [facility] they did receive the prescription for Oxycodone [...] 2:15 PM EDT Spoke with Joya at [facility] in regards to patient's medication. She states that yesterday shecalled for refill for oxycontin. This prescription was [facility] when [facility]. Patient also has order for Oxycodone 5 mg every 8 hours PRN that was filled. Patient is tolerating the oxycodone well and it is managing her pain. August states that she just needs an order from PCP to discontinue the oxycontin. She would like to have order for med to be discontinued. Once signed, needs to be faxed to [facility] at [phone]. * Telephone Encounter - Oscar Romero OSA - 10/10/2024 2:12 PM EDT Reason for patient's call: Marley calling from [facility] with a medication question. Caller was transferred to Cyndee at the nurse line. documented in this encounter Plan of Treatment Upcoming Encounters Date Type Department Care Team (Late st Contact Info) Description 10/30/2024 10:00 AM EDT Office Visit Ophthalmology, [facility] [address] [place] [phone] Hector Lopez, [address] [place] [address] 01/15/2025 3:30 PM EDT Office Visit Cardiology, [facility] [address] [place] [phone] Kvng Choudhary, PAZacC [address] [place] [address] 03/22/2025 1:40 PM EDT Office Visit General Internal Medicine [facility] [place] [address] [place] [address] Edilia Kenyon MD [address] [facility] [place] [address] Health Maintenance Due Date Last Done Comments Adult Wellness Visit 2005 Zoster Vaccines (2 of 3) 07/23/2009 05/28/2009 COVID-19 Vaccine ( season) 2024 11/25/2021, 04/12/2021, 08/20/2020, Additional history exists *BISPHONATE OR OTHER ACCEPTABLE MEDICATION NEEDED FOR OSTEOPOROSIS (REFER TO SMARTSET #1146) 05/09/2024 DXA Scan 04/21/2025 04/21/2023, 110 06/2022, 08/16/2019, Additional history exists Albumin/Creatinine Ratio 08/31/20252 025, 05/06/2023, 04/09/2016, Additional history exists CKD PHOS USE SMARTSET 67936 08/31/202508/19, 05/04/2023, 12/17/2021, Additional history exists HbA1c 08/31/2025 08/31/2024, 08/19, 03/17/2021, Additional history exists CKD HGB USE SMARTSET 65431 09/27/202509/27, 09/20/2024, 07/20/2024, Additional history exists Depression Monitoring 10/05/2025 10/05/2024 DTap/Tdap Vaccines (3 - Td or Tdap) 05/06/2033 05/06/2023, 09/29/2011 Hepatitis B Vaccine Completed 11/03/2002, 06/05/2002, 05/05/2002 Pneumococcal Vaccine: 50+ Years Completed 09/13/2014, 05/21/2006 Influenza Vaccine (FLU shot) Completed , 03/19/2023, 02/26/2022, Additional history exists VITAMIN D LEVEL ONCE IN A LIFETIME-USE SMARTSET# 30059 Completed 07/20/2024, 05/04/2023, 12/17/2021, Additional history exists [...] Documents on File Type Date Recorded Patient Ssn/Ssbn Weapons Equipment Operator Expl anation Advance Directives and Livin g Will 12/25/2018 LIVING WILL Power of Fast Food Services Manager 12/25/2018 POWER OF A TTORNEY Care Teams Tub Wash Operator Relationship Specialty Start Date End Date Edilia Kenyon MD [address] [place] [address] PCP - General Internal Medicine 07/28/19 documented as of this encounter
--- OUTSIDE RECORDS SUMMARY | 2024-10-14 18:08 | External Medical Summary | Summary of Care ---
Author Name Unknown Organization [facility] Address [address] [place] [address] Phone [phone] Care Team Providers Care Bobbin Hauler Name Role Phone Edilia Kenyon MD Primary Care Provider + Reason for Referral * Medication Prior Authorization - Closed Specialty Diagnoses / Procedures Referred By Contac t Referred To Contact Diagnoses Other closed fracture of pubis with routine healing, unspecified laterality, subsequent encounter Holger Rice MD [address] [place] [address] Phone: tel: fax: Referral ID Status Reason Start Date Expiration Date Visits Re quested Visits Authorized [id number] Closed 999 999 * Evaluate & Treat - Unlimited Visits (Within 10 days (routine)) - Authorized Specialty Diagnoses / Procedures Referred By Contac t Referred To Contact Pharmacist / Pharmacy Diagnoses Other closed fracture of pubis with routine healing, unspecified laterality, subsequent encounter Holger Rice MD [address] [place] [address] Phone: tel: fax: Referral ID Status Reason Start Date Expiration Date Visits Requested Visits Authorized [id number] Authorized Specialty Services Required 10/13/2024 04/11/2025 99 [...] have her medication therapy managed by the [facility] ([facility]) per established policies, procedures, and protocols. I also certify that this referral may serve as an initiation of service for the management of drug therapy in the above noted patient. [facility] providers will be responsible for scheduling patient visits, obtaining appropriate laboratory studies, and adjusting medication management therapy per patient's need, in addition to those roles spelled out in the clinic policy, procedures, and drug management protocols. I understand that the service provided by the [facility] Clinic is voluntary and have informed patient that they can refuse the service at their discretion. I am aware that the [facility] Clinic will provide me with a copy of the patient encounter via my [employer]. I authorize the [facility] Clinic to carry out these activities on my behalf. I consider this program to be a necessary part of the patient's medical care. Holger Rice MD Reason for Visit * Reason Comments Acute Pt had a fall on 08/20 01/12. She was admitted to [facility] with Pelvic fracture, then went to [facility] and now is at [facility] for rehab. Patient's back/sciatic pain has gotten worse Encounter Details Date Type Department Care Team (Late st Contact Info) Description 10/13/2024 2:20 PM EDT [facility] [address] [place] [phone] Holger Rice MD [address] [place] [address] Other closed fracture of pubis with routine [...] mRNA, LNP-s, No Pre serve, 2-Dose Series ([employer]) 08/20/2020,07/30/2020 Hepatitis B, 20+ yrs 11/03/2002,06/05/2002,05/05 Pneumococcal [...] fall on 09/14/24. She was admitted to [facility] with Pelvic fracture, then went to [facility] and now is at [facility] for rehab. Patient's back/sciatic pain has gotten worse ) History of Present Illness Edith Guerra is an 84 year old female who presents with uncontrolled pain following a pelvic fracture. She experienced a mechanical fall resulting in a pelvic fracture and was treated at [facility] from September 14, 2024, to September [...] in this note was generated using an [employer] documentation service. I discussed the use of a device to record and summarize our discussion today. All persons present during the encounter consented to its use. documented in this encounter Nursing Notes * Florence Bernabe, TIE FASTENER - 10/13/2024 1:59 PM EDT The patient has been properly identified by confirmation of name and date of . Chief Complaint Patient presents with Acute Pt had a fall on 09/14/24. She was admitted to [facility] with Pelvic fracture, then went to [facility] and now is at [facility] for rehab. Patient's back/sciatic pain has [...] AM EDT Office Visit General Internal Medicine [facility] [address] [place] [address] Edilia Kenyon MD [address] [place] [address] 10/30/2024 10:00 AM EDT Office Visit Ophthalmology, [facility] [address] [place] [phone] Hector Lopez T, [address] [place] [address] 01/15/2025 3:30 PM EDT Office Visit Cardiology, [facility] [address] [place] [phone] Kvng Choudhary PA-C [address] [place] [address] 03/22/2025 1:40 PM EDT Office Visit General Internal Medicine [facility] [address] [place] [address] Edilia Kenyon MD [address] [place] [address] Pending Results Name Type Priority Associated Diagnoses [...] Additional history exists CKD PHOS USE SMARTSET 41094 08/31/202508/19, 05/04/2023, 12/17/2021, Additional history exists HbA1c 08/31/2025 08/31/2024, 08/19, 03/17/2021, Additional history exists CKD HGB USE SMARTSET 78655 09/27/202509/27, 09/20/2024, 07/20/2024, Additional history exists Depression Monitoring 10/05/2025 10/05/2024 DTap/Tdap Vaccines (3 - Td or Tdap) 05/06/2033 05/06/2023, 09/29/2011 Hepatitis B Vaccine Completed 11/03/2002, 06/05/2002, 05/05/2002 Pneumococcal Vaccine: 50+ Years Completed 09/13/2014, 05/21/2006 Influenza Vaccine (FLU shot) Completed , 03/19/2023, 02/26/2022, Additional history exists VITAMIN D LEVEL ONCE IN A LIFETIME-USE SMARTSET# 46890 Completed 07/20/2024, 05/04/2023, 12/17/2021, Additional history exists [...] on File Type Date Recorded Patient Machine I Cutter Expl anation Advance Directives and Livin g Will 12/25/2018 LIVING WILL Power of Associate Professor Of Physics 12/25/2018 POWER OF A TTORNEY Care Teams Bobbin Hauler Relationship Specialty Start Date End Date Edilia Kenyon MD [address] [place] [address] PCP - General Internal Medicine 07/28/19 documented as of this encounter"
--- OUTSIDE RECORDS SUMMARY | 2024-10-14 18:09 | External Medical Summary | Summary of Care ---
Author Name Unknown Organization [facility] Address [address] [place] [address] Phone [phone] Care Team Providers Care Shrub Grower Name Role Phone Edilia Kenyon MD Primary Care Provider + Reason for Visit * Reason Onset Date Comments Med Request 10/09/2024 Encounter Details Date Type Department Care Team (Late st Contact Info) Description 10/09/2024 Telephone General Internal Medicine [facility] [address] [place] [address] Edilia Kenyon MD [address] [facility] [place] [address] Med Request Allergies Active Allergy Reactions Criticality [...] mRNA, LNP-s, No Pre serve, 2-Dose Series (Flickr) 08/20/2020,07/30/2020 Hepatitis B, 20+ yrs 11/03/2002,06/05/2002,05/05 Pneumococcal [...] for 14 days. Paperwork she brought from [facility] at last visit, had Oxycontin and oxycodone both on it. If pt is agreeable, we can certainly stop OxyContin which is long acting and just continue oxycodone 5 mg every 6 hourly as needed. * Telephone Encounter - Ida Diaz RN - 10/10/2024 11:34 AM EDT Spoke with Joya at [facility]. She states that they received a script when patient arrived for oxycotin 15 mg BID, and they are out. Upon reviewing discharge summary from [facility], patient was not discharged on oxycotin [...] this medicationwas prescribed in the hospital at [facility]. Please review. [facility] Thank you, Kandi Kendall CPhT Asw/Asuw Tactical Air Controller II [facility] 10/09/2024,9:12 AM documented in this encounter Plan of Treatment Upcoming Encounters Date Type Department Care Team (Late st Contact Info) Description 10/30/2024 10:00 AM EDT Office Visit Ophthalmology, [facility] [address] [phone] Hector Lopez, [address] [place] [address] 01/15/2025 3:30 PM EDT Office Visit Cardiology, [facility] [address] [place] [phone] Kvng Choudhary PA-C [address] [place] [place] [id number] 03/22/2025 1:40 PM EDT Office Visit General Internal Medicine [facility] [address] [place] [address] Edilia Kenyon MD [address] [facility] [place] [address] Health Maintenance Due Date Last Done Comments [...] Additional history exists CKD PHOS USE SMARTSET 30047 08/31/202508/19, 05/04/2023, 12/17/2021, Additional history exists HbA1c 08/31/2025 08/31/2024, 08/19, 03/17/2021, Additional history exists CKD HGB USE SMARTSET 41220 09/27/202509/27, 09/20/2024, 07/20/2024, Additional history exists Depression Monitoring 10/05/2025 10/05/2024 DTap/Tdap Vaccines (3 - Td or Tdap) 05/06/2033 05/06/2023, 09/29/2011 Hepatitis B Vaccine Completed 11/03/2002, 06/05/2002, 05/05/2002 Pneumococcal Vaccine: 50+ Years Completed 09/13/2014, 05/21/2006 Influenza Vaccine (FLU shot) Completed , 03/19/2023, 02/26/2022, Additional history exists VITAMIN D LEVEL ONCE IN A LIFETIME-USE SMARTSET# 41214 Completed 07/20/2024, 05/04/2023, 12/17/2021, Additional history exists [...] Documents on File Type Date Recorded 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
--- NOTE | 2024-10-14 18:19 | Emergency Department Note ---
Impression & Plan Acute dyspnea, Hypomagnesemia, Acute hypoxic respiratory failure, Non-ST elevation SC (NSTEMI), Acute exacerbation of CHF (congestive heart failure), Elevated troponin, Elevated brain natriuretic peptide (BNP) level, Pleural effusion on left, Pleural effusion on right ED Provider Note HISTORY OF PRESENT ILLNESS: Patient is an 84-year-old female presenting with shortness of breath. Patient recently had a pelvic fracture and was admitted to [facility], then discharged to rehab and currently resides at [facility]. She was recently seen by orthopedic surgery secondary to having worsening sciatica. Patient's daughter visited her today and noted that the patient seemed to be working harder to breathe. She states that after she left from the visit, she got called by [facility] that they took the patient's vital signs and her saturations were in the 80s. States that she brought the patient here due to her increased work of breathing and hypoxia. Patient is not on any supplemental oxygen at baseline. Denies any DVT or PE history. She is not on any anticoagulation or antiplatelet therapy. She reports feeling like it is hard to breathe. She denies any chest pain. Denies any abdominal pain, nausea or vomiting. ROS: as above PHYSICAL EXAM: Constitutional: Patient appears in no acute distress. HENT: Head: Normocephalic and atraumatic. Eyes: EOMI, PERRL Mouth/Throat: Mucous membranes moist. Neck: Trachea midline. Neck supple. Cardiovascular: RRR, No murmurs, rubs or gallops. Intact distal pulses. Pulmonary/Chest: Breath sounds clear and equal bilaterally. Conversationally dyspneic. Abdominal: Abdomen soft, no tenderness, rebound or guarding. Musculoskeletal: No edema, tenderness or deformity noted. Skin: Warm and dry. No rash, erythema, pallor or cyanosis Psychiatric: Appropriate mood and affect for situation. Neurological: Alert and keenly responsive. CN II-XII grossly intact, moving all extremities equally and fully. MDM: - Vitals signs showed hypertension hypoxia. On my assessment in the examination room, the patient is noted to have saturations of 86% on room air. She was placed on supplemental oxygen. - History obtained via patient and patient's daughter. History as above. - Chronic conditions affecting care: HTN; HLD; Raynaud's disease; hypertrophic cardiomyopathy; CKD; SIADH - Differential diagnoses include, but are not limited to: Congestive heart failure; acute coronary syndrome; COPD/asthma exacerbation; pulmonary edema; pulmonary embolism; pneumonia; pneumothorax; viral syndrome - Order placed for continuous cardiac monitoring. At this time, monitor showed rate of 90 bpm with normal sinus rhythm, per my interpretation. - External medical records reviewed. Discharge summary dated was reviewed. Patient was admitted that time secondary to a mechanical fall resulting in a pelvic fracture. - EKG image interpreted by myself showed normal sinus rhythm. BPM. QT 484. Patient has noted to have bigeminy and what appears to be a left bundle branch block. EKG does appear significantly different from patient's EKG from December 2023. - Arnot messaged bowling ball finisher, Dr. Ortiz, at 18:30 to discuss EKG changes. He believes that the EKG looks like bigeminy with PVCs and a left bundle branch block. Recommended to monitor troponin levels. He states that if the patient does develop any chest pain, he should be alerted immediately for potential Histology Technician activation. - Laboratory workup interpreted by myself showed normal WBC; anemia (Hgb 11.4 - improved from 7.7 in September); normal PT/INR; slight hyponatremia (Na 132); normal potassium; hypomagnesemia (Mg 1.5); elevated troponin (413.9); elevated BNP (3140) - CXR image reviewed by myself showed pulmonary vascular congestion and what appears to be bilateral pleural effusions, per my interpretation. Radiology notes small bilateral pleural effusions, cardiomegaly with mild pulmonary edema and a possible right lower lobe pneumonia. - VBG grossly unremarkable - CT PE negative for PE. Noted to have bilateral pleural effusions. - Patient given 60 mg IV lasix. - Viral respiratory panel negative - Unable to give patient aspirin for NSTEMI, as she has a noted allergy of "hives." - Discussed elevated troponin with Dr. Ortiz. He recommended continuing to trend and holding on heparin unless otherwise indicated. - Discussion was had with outpatient case manager about patient's case and need for admission - Hospitalist, Dr. Gerardo, consulted for admission - Patient admitted to [facility] service for further evaluation and management. ASSESSMENT AND PLAN: Diagnosis: acute dyspnea; acute hypoxic respiratory failure; NSTEMI; elevated BNP; acute CHF exacerbation; pleural effusions; hypomagnesemia; elevated troponin Plan: Admit Past Med/Surg History Problem List (Updated 10/14/24 @ 19:41 by Ida Bauer MD) Pleural effusion on right (Acute) Pleural effusion on left (Acute) Elevated brain natriuretic peptide (BNP) level (Acute) Elevated troponin (Acute) Acute exacerbation of CHF (congestive heart failure) (Acute) Non-ST elevation SC (NSTEMI) (Acute) Acute hypoxic respiratory failure (Acute) Hypomagnesemia (Acute) Acute dyspnea (Acute) Pneumonia SIADH (syndrome of inappropriate ADH production) Alcohol use Anxiety Acute hyponatremia (Acute) Status post fall (Acute) Unable to ambulate (Acute) Closed fracture of left pelvis (Acute) Pelvic fracture Episode of altered cognition AMS (altered mental status) (Acute) Thoracic spondylosis Bilateral occipital neuralgia Chronic daily headache Opioid dependence Thoracic back pain Myofascial pain Acute hyponatremia (Acute) Chronic pain disorder (Chronic) CKD (chronic kidney disease) stage 3, GFR 30-59 ml/min Hyponatremia (Acute) Hypertrophic cardiomyopathy (Chronic) Raynauds disease (Chronic) Hyperlipidemia (Chronic) HTN (hypertension) (Chronic) Encephalopathy (Acute) Altered mental status (Acute 05/30/13) Acute kidney injury (Acute 05/30/13) Hypomagnesemia (Acute) Hypokalemia (Acute) Hypophosphatemia (Acute) Malnutrition (Acute) Alcohol use (Chronic) Ulceration of oral mucosa (Acute) Medical History Vitamin D deficiency Mitral regurgitation Aortic stenosis Surgical History History of hysterectomy History of cholecystectomy Family History Other No pertinent family history Social History Smoking Status: Former smoker Second Hand Exposure: No; Do You Dip or Chew Tobacco: No; Hx Alcohol Use: Yes Alcohol type: beer and wine Alcohol Intake Frequency Comment: was daily but pt reports cutting back over past few months Hx Substance Use: No Preferred Language: Ethiopian Communication Ability: Effective Clinical Laboratory Technician Required: No Beliefs That Will Affect Care: None marital status: Unknown Current Living Situation: Alone Current Living Situation Comment: High Rise Apartment Complex Feels Safe at Home: Yes Assistive Devices: None Allergies Allergies Allergy/AdvReac Type Severity Reaction Status Date / Time aspirin Allergy Severe Hives Verified 07/19/24 13:32 NSAIDS (Non-Steroidal Allergy Severe Anaphylaxis Verified 07/19/24 13:32 Anti-Inflamma NOEL Inhibitors Allergy Unknown HIVES, Verified 07/19/24 13:32 SWELLING OF FACE ibuprofen Allergy Unknown Hives Verified 07/19/24 13:32 pantoprazole Allergy Unknown Unknown Verified 07/19/24 13:32 Brceajn-JBC-JgX Reductase Allergy Unknown "arms and Verified 07/19/24 13:32 Inhibitor legs achy" [Fplmydx-Lyz-Kkg Reductase Inhibitor] pravastatin [From Pravachol] AdvReac Severe liver Verified 07/19/24 13:32 complications gabapentin AdvReac Unknown Edema Verified 07/19/24 13:32 valacyclovir [From Valtrex] AdvReac Unknown Kidneys Verified 07/19/24 13:32 shut down Home Meds Home Medications Medication Instructions Recorded Confirmed ezetimibe 10 mg tablet (Zetia) 10 mg PO HS 06/14/20 10/14/24 fenofibrate micronized 67 mg 67 mg PO HS 06/14/20 10/14/24 capsule lorazepam 0.5 mg tablet 0.5 mg sublingual HS PRN Insomnia 06/14/20 10/14/24 lifitegrast 5 % eye drops in a 1 drp OPB BID 06/19/20 10/14/24 dropperette (Xiidra) cholecalciferol (vitamin D3) 100 100 mcg PO DAILY 07/16/23 10/14/24 mcg (4,000 unit) tablet escitalopram oxalate 10 mg tablet 10 mg PO DAILY 07/16/23 10/14/24 escitalopram oxalate 20 mg tablet 20 mg PO DAILY 07/16/23 10/14/24 ondansetron 4 mg disintegrating 8 mg PO Q8 PRN nausea 07/16/23 10/14/24 tablet famotidine 20 mg tablet 20 mg PO HS 09/14/24 10/14/24 furosemide 20 mg tablet 20 mg PO DAILY PRN Fluid Retention 09/14/24 10/14/24 acetaminophen 325 mg tablet 650 mg PO Q4 PRN PAIN 1-3 10/14/24 10/14/24 bisacodyl 5 mg tablet,delayed 10 mg PO DAILY PRN Constipation 10/14/24 10/14/24 release (Gentle Laxative (bisacodyl)) buspirone 15 mg tablet 15 mg PO DAILY 10/14/24 10/14/24 buspirone 30 mg tablet 30 mg PO QPM 10/14/24 10/14/24 cyclobenzaprine 5 mg tablet 5 mg PO TID PRN Muscle Spasm 10/14/24 10/14/24 duloxetine 30 mg capsule,delayed 30 mg PO QPM 10/14/24 10/14/24 release methylprednisolone 4 mg tablets in 4 mg PO UD 10/14/24 10/14/24 a dose pack metoprolol tartrate 25 mg tablet 25 mg PO Q12 10/14/24 10/14/24 omeprazole 40 mg capsule,delayed 40 mg PO BIDM 10/14/24 10/14/24 release oxycodone 15 mg tablet,crush 15 mg PO AMHS 10/14/24 10/14/24 resistant,extended release 12 hr oxycodone 5 mg tablet 5 mg PO Q8H PRN PAIN,MODERATE 10/14/24 10/14/24 Previous Rx's Medication Instructions Recorded losartan 50 mg tablet 50 mg PO BID #60 tabs 01/01/24 Flutter Valve #1 ea 09/19/24 folic acid 400 mcg tablet 400 mcg PO QAM #30 tabs 09/19/24 thiamine HCl (vitamin B1) 100 mg 100 mg PO QAM #30 tabs 09/19/24 tablet Results & Data (ED) Vital Signs Vital Signs - 24 hr 10/14/24 18:05 10/14/24 18:22 10/14/24 18:30 Temperature 36.5 C Temperature Source Temporal Artery Scan Pulse Rate 89 76 Pulse Rate from SpO2 Sensor Respiratory Rate 19 Respiratory Effort / Characteristics Non-Labored Spontaneous Respiratory Depth Normal Blood Pressure 209/79 H 173/79 H Blood Pressure Mean 122 115 Pulse Oximetry 91 Oxygen Delivery Method Room Air Sepsis Recent Fever Within 48 Hours No Sepsis New/Unexplained Change in Mental Status No Sepsis Action Taken by Nursing No Action Required 10/14/24 18:33 Temperature Temperature Source Pulse Rate 76 Pulse Rate from SpO2 Sensor 76 Respiratory Rate 14 Respiratory Effort / Characteristics Respiratory Depth Blood Pressure Blood Pressure Mean Pulse Oximetry 93 Oxygen Delivery Method Sepsis Recent Fever Within 48 Hours Sepsis New/Unexplained Change in Mental Status Sepsis Action Taken by Nursing Laboratory Data 10/14/24 18:46 10/14/24 18:46 Lab Results 10/14/24 Range/Units 18:46 WBC 7.72 (4.8-10.8) K/ul RBC 3.82 L (4.20-5.40) M/uL Hgb 11.4 L (12.0-16.0) g/dl Hct 34.4 L (37.0-47.0) % MCV 90.1 (80.0-100.0) fL MCH 29.8 (25.0-34.0) pg MCHC 33.1 (32.0-36.0) g/dL RDW Std Deviation 51.3 H (36.4-46.3) fL RDW Coeff of Cindy 15.6 H (11.5-14.5) % Plt Count 375 (130-400) K/uL MPV 9.1 L (9.4-12.4) fL Immature Gran % (Auto) 0.4 % Neut % (Auto) 85.8 % Lymph % (Auto) 7.9 % Cocke % (Auto) 5.8 % Eos % (Auto) 0.0 % Baso % (Auto) 0.1 % Neut # (Auto) 6.62 H (1.40-6.50) K/uL Lymph # (Auto) 0.61 L (1.20-3.40) K/uL Cocke # (Auto) 0.45 (0.11-0.59) K/uL Eos # (Auto) 0.00 (0.00-0.50) K/uL Baso # (Auto) 0.01 (0.00-0.20) K/uL Immature Gran # (Auto) 0.03 (0.01-0.20) K/uL PT 11.2 (9.0-12.0) Seconds INR 1.0 (0.9-1.1) VBG pH 7.44 H (7.36-7.41) VBG pCO2 36 L (38-50) mmHg VBG pO2 21 mmHg VBG HCO3 25 mmol/L VBG O2 Saturation < 60.0 % VBG Base Excess 0.6 mEq/L Sodium 132 L (136-145) mmol/L Potassium 3.6 (3.5-5.1) mmol/L Chloride 96 L (98-107) mmol/L Carbon Dioxide 28 (21-32) mmol/L Anion Gap 8 (3-11) BUN 24 H (6-23) mg/dl Creatinine 0.91 (0.6-1.2) mg/dl Est Cr Clr Drug Dosing Not Reportable eGFR 61.82 BUN/Creatinine Ratio 26.4 H (10-20) Glucose 196 H (70-99(Fasting)) mg/dl Calcium 9.3 (8.6-10.3) mg/dl Magnesium 1.5 L (1.7-2.4) mg/dl Total Bilirubin 1.0 (0.2-1.0) mg/dl AST 34 (13-39) U/L ALT 27 (7-52) U/L Alkaline Phosphatase 135 H (34-104) U/L Troponin I High Sens 413.9 H* (0-14) pg/ml B-Natriuretic Peptide 3140 H (0-100) pg/ml Total Protein 7.0 (6.0-8.3) gm/dl Albumin 3.8 (3.4-5.0) gm/dl Globulin 3.2 (2.5-4.0) gm/dl Albumin/Globulin Ratio 1.2 (0.9-2) Adenovirus (PCR) Not Detected (NotDetected) B. pertussis DNA (PCR) Not Detected (NotDetected) B.parapertussis DNA PCR Not Detected (NotDetected) C. pneumoniae DNA (PCR) Not Detected (NotDetected) Coronavirus OC43 (PCR) Not Detected (NotDetected) Coronavirus HKU1 (PCR) Not Detected (NotDetected) Coronavirus 229E (PCR) Not Detected (NotDetected) SARS-CoV-2 (PCR) Not Detected (NotDetected) Coronavirus NL63 (PCR) Not Detected (NotDetected) Human Metapneumovir PCR Not Detected (NotDetected) Influenza Type A (PCR) Not Detected (NotDetected) Influenza Type B (PCR) Not Detected (NotDetected) M. pneumoniae (PCR) Not Detected (NotDetected) Parainfluenza 1 (PCR) Not Detected (NotDetected) Parainfluenza 2 (PCR) Not Detected (NotDetected) Parainfluenza 3 (PCR) Not Detected (NotDetected) Parainfluenza 4 (PCR) Not Detected (NotDetected) RSV (PCR) Not Detected (NotDetected) Entero/Rhino (PCR) Not Detected (NotDetected) Administered Medications Discontinued Medications Furosemide (Furosemide 40 Mg/4 Ml Vial) 60 mg IV ONE ONE Stop: 10/14/24 19:34 Last Admin: 10/14/24 20:22 Dose: 60 mg Documented By: FIONA Magnesium Sulfate/Dextrose (Magnesium Sulfate / D5w) 1 gm in 100 mls @ 100 mls/hr IV NOW STA Stop: 10/14/24 20:16 Last Admin: 10/14/24 20:23 Dose: 100 mls/hr Documented By: FIONA Ioversol (Optiray 320 125ml) 119 ml IV ONCE ONE Stop: 10/14/24 19:29 Last Admin: 10/14/24 19:29 Dose: 119 ml Documented By: EDK Imaging Data Radiologist's Impression: Chest X-Ray 10/14/24 18:15 Clinical History: Dyspnea Technique: A frontal view of the chest was obtained Comparison is made to the prior examination dated 09/15/2024 Findings: There is worsened right lung base opacity, concerning for pneumonia. The heart is mildly enlarged. There is mild pulmonary edema. No definite pneumothorax is seen. There are suspected small bilateral pleural effusions No fracture is noted. No foreign body is seen Impression: 1. Small bilateral pleural effusions 2. Cardiomegaly and mild pulmonary edema 3. Possible right lower lobe pneumonia ACT 112: Positive. There are findings on this exam that require communication between the performing entity and the patient following Patient Test Result Information Act ([place] ACT 112) guidelines. Electronically signed by Migue Friedman 10-14-2024 6:41 PM Chest CTA 10/14/24 18:50 Clinical history: Dyspnea Technique: Axial computed tomography images were obtained of the chest after the administration of intravenous contrast according to the CT angiogram protocol Comparison is made to the prior CT dated 09/16/2024 Findings: There is no definite sign of pulmonary embolism. There is mild emphysema. There are new bilateral small to moderate sized pleural effusions. There is mild bilateral lower lobe atelectasis. There is no definite sign of pneumonia. There is no pneumothorax. There is no sign of pulmonary fibrosis or other diffuse interstitial process. No endobronchial lesion is seen There is no mediastinal, hilar, or axillary adenopathy. The thoracic aorta appears unremarkable with no sign of aneurysm or dissection. There is no pericardial effusion. There is coronary atherosclerosis The visualized upper abdomen appears unremarkable. There are multiple old left rib fractures. No focal osseous lesion is evident Impression: 1. No definite sign of pulmonary embolism 2. New bilateral pleural effusions 3. Mild emphysema 4. Coronary atherosclerosis Electronically signed by Migue Friedman 10-14-2024 7:57 PM Discharge Plan Visit Data Chief Complaint: Leg Injury/Pain Stated Complaint: SOB ED Provider: Ida Bauer Discharge Problem: Acute dyspnea, Hypomagnesemia, Acute hypoxic respiratory failure, Non-ST elevation SC (NSTEMI), Acute exacerbation of CHF (congestive heart failure), Elevated troponin, Elevated brain natriuretic peptide (BNP) level, Pleural effusion on left, Pleural effusion on right Forms Stand Alone Forms: My [facility] RSP Tooling Prescriptions Prescriptions: No Action escitalopram oxalate 20 mg tablet 20 mg PO DAILY escitalopram oxalate 10 mg tablet 10 mg PO DAILY cholecalciferol (vitamin D3) 100 mcg (4,000 unit) tablet 100 mcg PO DAILY ondansetron 4 mg tablet,disintegrating 8 mg PO Q8 PRN (Reason: nausea) Xiidra 5 % Dropperette 1 drp OPB BID fenofibrate micronized 67 mg Capsule 67 mg PO HS lorazepam 0.5 mg tablet 0.5 mg sublingual HS PRN (Reason: Insomnia) ezetimibe [Zetia] 10 mg Tablet 10 mg PO HS losartan 50 mg Tablet 50 mg PO BID Qty: 60 0RF famotidine 20 mg tablet 20 mg PO HS furosemide 20 mg tablet 20 mg PO DAILY PRN (Reason: Fluid Retention) thiamine HCl (vitamin B1) 100 mg Tablet 100 mg PO QAM Qty: 30 0RF folic acid 400 mcg Tablet 400 mcg PO QAM Qty: 30 0RF (DME) Flutter Valve Device See Rx Instructions .Route Qty: 1 0RF Rx Instructions: As directed cyclobenzaprine 5 mg tablet 5 mg PO TID PRN (Reason: Muscle Spasm) buspirone 15 mg tablet 15 mg PO DAILY duloxetine 30 mg capsule,delayed release(DR/EC) 30 mg PO QPM buspirone 30 mg tablet 30 mg PO QPM bisacodyl [Gentle Laxative (bisacodyl)] 5 mg tablet,delayed release (DR/EC) 10 mg PO DAILY PRN (Reason: Constipation) acetaminophen 325 mg Tablet 650 mg PO Q4 MDD 3G PRN (Reason: PAIN 1-3) metoprolol tartrate 25 mg tablet 25 mg PO Q12 omeprazole 40 mg capsule,delayed release(DR/EC) 40 mg PO BIDM Rx Instructions: TAKE BEFORE 2 MEALS oxycodone 15 mg Tablet,Oral Only,Ext.Rel.12 Hr 15 mg PO AMHS Rx Instructions: 12 HOURS APART oxycodone 5 mg Tablet 5 mg PO Q8H PRN (Reason: PAIN,MODERATE) methylprednisolone 4 mg tablets,dose pack 4 mg PO UD Rx Instructions: TAKE 1 TABLET TWICE A DAY X 1 DAY FOR 10/15/24 TAKE 1 TABLET BY MOUTH DAILY FOR 1 DAY 10/16/24 Referrals Referrals: Edilia Kenyon MD [Primary Care Provider] -
--- NOTE | 2024-10-14 18:41 | XRay Report ---
Clinical History: Dyspnea Technique: A frontal view of the chest was obtained Comparison is made to the prior examination dated 09/15/2024 Findings: There is worsened right lung base opacity, concerning for pneumonia. The heart is mildly enlarged. There is mild pulmonary edema. No definite pneumothorax is seen. There are suspected small bilateral pleural effusions No fracture is noted. No foreign body is seen Impression: 1. Small bilateral pleural effusions 2. Cardiomegaly and mild pulmonary edema 3. Possible right lower lobe pneumonia ACT 112: Positive. There are findings on this exam that require communication between the performing entity and the patient following Patient Test Result Information Act ([place] ACT 112) guidelines. Electronically signed by Migue Friedman 10-14-2024 6:41 PM
[2024-10-14 18:59] LABS: Base Excess VBG 0.6 mEq/L; HCO3 VBG 25 mmol/L; Oxygen Saturation VBG < 60.0 %; PCO2 VBG 36 mmHg (38-50); PO2 VBG 21 mmHg; pH VBG 7.44 (7.36-7.41)
[2024-10-14 19:00] LABS: Basophils # (auto) 0.01 K/uL (0.00-0.20); Basophils % (auto) 0.1 %; Hematocrit (blood only) 34.4 % (37.0-47.0); Hemoglobin 11.4 g/dl (12.0-16.0); Immature Granulocytes # (auto) 0.03 K/uL (0.01-0.20); Immature Granulocytes % (auto) 0.4 %; Lymphocytes # (auto) 0.61 K/uL (1.20-3.40); Lymphocytes % (auto) 7.9 %; Mean Corpuscular Hemoglobin 29.8 pg (25.0-34.0); Mean Corpuscular Hgb Conc 33.1 g/dL (32.0-36.0); Mean Corpuscular Volume 90.1 fL (80.0-100.0); Mean Platelet Volume 9.1 fL (9.4-12.4); Monocytes # (auto) 0.45 K/uL (0.11-0.59); Monocytes % (auto) 5.8 %; Neutrophils # (auto) 6.62 K/uL (1.40-6.50); Neutrophils % (auto) 85.8 %; Platelet Count 375 K/uL (130-400); RDW Coefficient of Variation 15.6 % (11.5-14.5); RDW Standard Deviation 51.3 fL (36.4-46.3); Red Blood Count 3.82 M/uL (4.20-5.40); White Blood Count 7.72 K/ul (4.8-10.8)
[2024-10-14 19:16] LABS: Alanine Aminotransferase 27 U/L (7-52); Albumin Globulin Ratio 1.2 (0.9-2); Albumin Level 3.8 gm/dl (3.4-5.0); Alkaline Phosphatase 135 U/L (34-104); Anion Gap 8 (3-11); Aspartate Aminotransferase 34 U/L (13-39); BUN Creatinine Ratio 26.4 (10-20); Blood Urea Nitrogen 24 mg/dl (6-23); Calcium 9.3 mg/dl (8.6-10.3); Carbon Dioxide 28 mmol/L (21-32); Chloride 96 mmol/L (98-107); Globulin 3.2 gm/dl (2.5-4.0); Glucose 196 mg/dl (70-99(Fasting)); Magnesium 1.5 mg/dl (1.7-2.4); Potassium 3.6 mmol/L (3.5-5.1); Sodium 132 mmol/L (136-145)
[2024-10-14 19:24] LABS: Prothrombin Time 11.2 Seconds (9.0-12.0)
[2024-10-14] MEDS: OPTIRAY 320 125ml IV ONE (19:29)
[2024-10-14 19:32] LABS: Troponin I High Sensitivity 413.9 pg/ml (0-14)
[2024-10-14 19:50] LABS: Adenovirus PCR Not Detected (NotDetected); Bordetella parapertussis PCR Not Detected (NotDetected); Bordetella pertussis PCR Not Detected (NotDetected); Chlamydia pneumoniae PCR Not Detected (NotDetected); Coronavirus 229E PCR Not Detected (NotDetected); Coronavirus CoV-2 (COVID19)PCR Not Detected (NotDetected); Coronavirus HKU1 PCR Not Detected (NotDetected); Coronavirus NL63 PCR Not Detected (NotDetected); Coronavirus OC43PCR Not Detected (NotDetected); Human Metapneumovirus PCR Not Detected (NotDetected); Influenza A PCR Not Detected (NotDetected); Influenza B PCR Not Detected (NotDetected); Mycoplasma pneumoniae PCR Not Detected (NotDetected); Parainfluenza Virus 1 PCR Not Detected (NotDetected); Parainfluenza Virus 2 PCR Not Detected (NotDetected); Parainfluenza Virus 3 PCR Not Detected (NotDetected); Parainfluenza Virus 4 PCR Not Detected (NotDetected); Respiratory Syncytial VirusPCR Not Detected (NotDetected); Rhinovirus/Enterovirus PCR Not Detected (NotDetected)
--- NOTE | 2024-10-14 19:57 | CT Scan Report ---
Clinical history: Dyspnea Technique: Axial computed tomography images were obtained of the chest after the administration of intravenous contrast according to the CT angiogram protocol Comparison is made to the prior CT dated 09/16/2024 Findings: There is no definite sign of pulmonary embolism. There is mild emphysema. There are new bilateral small to moderate sized pleural effusions. There is mild bilateral lower lobe atelectasis. There is no definite sign of pneumonia. There is no pneumothorax. There is no sign of pulmonary fibrosis or other diffuse interstitial process. No endobronchial lesion is seen There is no mediastinal, hilar, or axillary adenopathy. The thoracic aorta appears unremarkable with no sign of aneurysm or dissection. There is no pericardial effusion. There is coronary atherosclerosis The visualized upper abdomen appears unremarkable. There are multiple old left rib fractures. No focal osseous lesion is evident Impression: 1. No definite sign of pulmonary embolism 2. New bilateral pleural effusions 3. Mild emphysema 4. Coronary atherosclerosis Electronically signed by Migue Friedman 10-14-2024 7:57 PM
[2024-10-14] MEDS: FUROSEMIDE 40 MG/4 ML VIAL IV ONE (20:22)
[2024-10-14] MEDS: MAGNESIUM SULFATE / D5W 1 GM/100 ML BAG IV STA (20:23)
[2024-10-14] MEDS: MAGNESIUM SULFATE / D5W 1 GM/100 ML BAG IV ONE (21:39)
[2024-10-14] MEDS: POTASSIUM CHLORIDE CRTAB 20 MEQ TABCR PO STA (21:40)
--- NOTE | 2024-10-14 22:34 | History & Physical Report ---
Date of Service October 14, 2024 Assessment & Plan (1) Acute exacerbation of CHF (congestive heart failure): Plan: 84-year-old female with past medical history significant for hypertension, hypertrophic cardiomyopathy, moderate left ventricular hypertrophy, valvular heart disease, CKD stage III, history of dialysis in 2012 thought to be reaction from valacyclovir, history of anaphylactic shock due NOEL inhibitors, history of stomach tumor s/p resection, dyslipidemia, prediabetes, pulmonary hypertension, peripheral vascular disease, GERD, chronic low back pain, osteoarthritis, osteoporosis, migraine, history of tobacco use, depression, who was admitted in end of August 2024 for mechanical fall and pelvic fracture and she was discharged to rehab on . Currently she is at [facility]. She still having significant pain in the back and radiating to the legs. Saw orthopedics recently for sciatica. On pain medications. Ambulating with walker short distance. She was sent in today to the hospital because of shortness of breath and tachypnea. Her oxygen saturations were in 87% room air and on nasal cannula saturating okay currently. Daughter is in the room. Denies any cough. Denies any fevers. No chest pain. Has constant runny nose. Has some sore throat. Currently no headache. No abdominal pain. Constipated. Micturating okay. No lower extremity edema. Hemodynamics are okay. Acute CHF Presents with shortness of breath CTA chest no PE. New bilateral pleural effusions Prior Echocardiogram reporting HCM and LVOT gradient with Valsalva. Has moderate aortic regurgitation, mild to moderate mitral regurgitation and mild tricuspid Regurgitation BNP 3140 Received IV Lasix 60 mg in the ER Will continue with IV Lasix 40 mg daily for now Will follow echo Daily weights and I's and O's Telemetry Cardial consult in a.m. for further recommendation Non-ST elevated LA Possible demand ischemia Initial troponin 413 and repeat is 350 ER spoke with interventional cardiology on-call and currently no heparin recommended for now and monitor Will follow serial cardiac enzymes and echo Telemetry Cardiac consult in a.m. Back pain Ongoing Recent pelvic fracture Continue pain medications on steroid taper , couple more days to finish PT OT when stable Prolonged QTc Will hold Lexapro and duloxetine for now Avoid QT prolonging drugs Follow repeat EKG Hypomagnesia Replace Follow labs CKD stage III Creatinine 0.9 We will monitor Hypertension On metoprolol tartrate, losartan Will monitor Prediabetes Follow HbA1c levels Hyperlipidemia On Zetia and fenofibrate Depression On buspirone Holding Lexapro and duloxetine Hyponatremia SIADH Sodium 132 Will monitor History of alcohol use Seems drinks 2 to 3 glasses of wine Currently coming from longterm Will monitor Chronic pain disorder Opiate dependence Continue current pain medications DVT prophylaxis Lovenox Disposition Telemetry Full code. History of Present Illness Chief Complaint: Shortness of breath Primary Care Provider: Edilia Kenyon MD 84-year-old female with past medical history significant for hypertension, hypertrophic cardiomyopathy, moderate left ventricular hypertrophy, valvular heart disease, CKD stage III, history of dialysis in 2013 thought to be reaction from valacyclovir, history of anaphylactic shock due NOEL inhibitors, history of stomach tumor s/p resection, dyslipidemia, prediabetes, pulmonary hypertension, peripheral vascular disease, GERD, chronic low back pain, osteoarthritis, osteoporosis, migraine, history of tobacco use, depression, who was admitted in end of August 2024 for mechanical fall and pelvic fracture and she was discharged to rehab on 09/19/24. Currently she is at [facility]. She still having significant pain in the back and radiating to the legs. Saw orthopedics recently for sciatica. On pain medications. Ambulating with walker short distance. She was sent in today to the hospital because of shortness of breath and tachypnea. Her oxygen saturations were in 87% room air and on nasal cannula saturating okay currently. Daughter is in the room. Denies any cough. Denies any fevers. No chest pain. Has constant runny nose. Has some sore throat. Currently no headache. No abdominal pain. Constipated. Micturating okay. No lower extremity edema. Hemodynamics are okay. Past medical history. As mentioned above Past surgical history. Colonoscopy and EGD. Laparoscopic cholecystectomy. Stomach surgery 1983. Repair of drooping eyelid. Total abdominal hysterectomy with removal of tubes Social history. Quit smoking in 2000. Social drinking. No drug use. Family history. Mother had arthritis. Maternal cousin had breast cancer. Father had bladder cancer. Maternal grandfather had throat cancer. Paternal grandfather had abdomen cancer. Maternal grandmother had colon cancer. Brother had heart surgery in early 60s. Sister had LA. Allergies Allergy/AdvReac Type Severity Reaction Status Date / Time aspirin Allergy Severe Hives Verified 07/19/24 13:32 NSAIDS (Non-Steroidal Allergy Severe Anaphylaxis Verified 07/19/24 13:32 Anti-Inflamma NOEL Inhibitors Allergy Unknown HIVES, Verified 07/19/24 13:32 SWELLING OF FACE ibuprofen Allergy Unknown Hives Verified 07/19/24 13:32 pantoprazole Allergy Unknown Unknown Verified 07/19/24 13:32 Nvblcxk-DVL-SdJ Reductase Allergy Unknown "arms and Verified 07/19/24 13:32 Inhibitor legs achy" [Hhscvkp-Pcx-Zdv Reductase Inhibitor] pravastatin [From Pravachol] AdvReac Severe liver Verified 07/19/24 13:32 complications gabapentin AdvReac Unknown Edema Verified 07/19/24 13:32 valacyclovir [From Valtrex] AdvReac Unknown Kidneys Verified 07/19/24 13:32 shut down Home Medications Medication Instructions Recorded Confirmed Type ezetimibe 10 mg tablet (Zetia) 10 mg PO HS 06/14/20 10/14/24 History fenofibrate micronized 67 mg 67 mg PO HS 06/14/20 10/14/24 History capsule lorazepam 0.5 mg tablet 0.5 mg sublingual HS PRN Insomnia 06/14/20 10/14/24 History lifitegrast 5 % eye drops in a 1 drp OPB BID 06/19/20 10/14/24 History dropperette (Xiidra) cholecalciferol (vitamin D3) 100 100 mcg PO DAILY 07/16/23 10/14/24 History mcg (4,000 unit) tablet escitalopram oxalate 10 mg tablet 10 mg PO DAILY 07/16/23 10/14/24 History escitalopram oxalate 20 mg tablet 20 mg PO DAILY 07/16/23 10/14/24 History ondansetron 4 mg disintegrating 8 mg PO Q8 PRN nausea 07/16/23 10/14/24 History tablet losartan 50 mg tablet 50 mg PO BID #60 tabs 01/01/24 10/14/24 Rx famotidine 20 mg tablet 20 mg PO HS 09/14/24 10/14/24 History furosemide 20 mg tablet 20 mg PO DAILY PRN Fluid Retention 09/14/24 10/14/24 History Flutter Valve #1 ea 09/19/24 10/14/24 Rx folic acid 400 mcg tablet 400 mcg PO QAM #30 tabs 09/19/24 10/14/24 Rx thiamine HCl (vitamin B1) 100 mg 100 mg PO QAM #30 tabs 09/19/24 10/14/24 Rx tablet acetaminophen 325 mg tablet 650 mg PO Q4 PRN PAIN 1-3 10/14/24 10/14/24 History bisacodyl 5 mg tablet,delayed 10 mg PO DAILY PRN Constipation 10/14/24 10/14/24 History release (Gentle Laxative (bisacodyl)) buspirone 15 mg tablet 15 mg PO DAILY 10/14/24 10/14/24 History buspirone 30 mg tablet 30 mg PO QPM 10/14/24 10/14/24 History cyclobenzaprine 5 mg tablet 5 mg PO TID PRN Muscle Spasm 10/14/24 10/14/24 History duloxetine 30 mg capsule,delayed 30 mg PO QPM 10/14/24 10/14/24 History release methylprednisolone 4 mg tablets in 4 mg PO UD 10/14/24 10/14/24 History a dose pack metoprolol tartrate 25 mg tablet 25 mg PO Q12 10/14/24 10/14/24 History omeprazole 40 mg capsule,delayed 40 mg PO BIDM 10/14/24 10/14/24 History release oxycodone 15 mg tablet,crush 15 mg PO AMHS 10/14/24 10/14/24 History resistant,extended release 12 hr oxycodone 5 mg tablet 5 mg PO Q8H PRN PAIN,MODERATE 10/14/24 10/14/24 History Past Med/Surg History Problem List (Updated 10/14/24 @ 19:41 by Ida Bauer MD) Pleural effusion on right (Acute) Pleural effusion on left (Acute) Elevated brain natriuretic peptide (BNP) level (Acute) Elevated troponin (Acute) Acute exacerbation of CHF (congestive heart failure) (Acute) Non-ST elevation LA (NSTEMI) (Acute) Acute hypoxic respiratory failure (Acute) Hypomagnesemia (Acute) Acute dyspnea (Acute) Pneumonia SIADH (syndrome of inappropriate ADH production) Alcohol use Anxiety Acute hyponatremia (Acute) Status post fall (Acute) Unable to ambulate (Acute) Closed fracture of left pelvis (Acute) Pelvic fracture Episode of altered cognition AMS (altered mental status) (Acute) Thoracic spondylosis Bilateral occipital neuralgia Chronic daily headache Opioid dependence Thoracic back pain Myofascial pain Acute hyponatremia (Acute) Chronic pain disorder (Chronic) CKD (chronic kidney disease) stage 3, GFR 30-59 ml/min Hyponatremia (Acute) Hypertrophic cardiomyopathy (Chronic) Raynauds disease (Chronic) Hyperlipidemia (Chronic) HTN (hypertension) (Chronic) Encephalopathy (Acute) Altered mental status (Acute 05/30/13) Acute kidney injury (Acute 05/30/13) Hypomagnesemia (Acute) Hypokalemia (Acute) Hypophosphatemia (Acute) Malnutrition (Acute) Alcohol use (Chronic) Ulceration of oral mucosa (Acute) Medical History Vitamin D deficiency Mitral regurgitation Aortic stenosis Surgical History History of hysterectomy History of cholecystectomy Family History Other No pertinent family history Social History Smoking Status: Never smoker Second Hand Exposure: No; Do You Dip or Chew Tobacco: No; Tobacco Cessation Education Requested by Patient: No Hx Alcohol Use: Yes Alcohol type: beer and wine Alcohol Intake Frequency Comment: was daily but pt reports cutting back over past few months Hx Substance Use: No Preferred Language: Nigerien Communication Ability: Effective 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 ENT- oropharynx clear Neck- supple, JVD present Lungs- clear to auscultation mild bibasilar crackles Heart- regular rhythm; no murmur, no gallop. Abdomen- normal bowel sounds, soft, nontender, no distension. Extremities- no pretibial edema, no erythema seen Neuro- alert, oriented PERRL, no facial palsy; no dysarthria; moves extremities Musculoskeletal b/l SLR test positive Results & Data Results & Data Vital Signs (Past 12 Hours) Vital Signs Temp Pulse Pulse Resp BP BP Pulse Ox 10/14/24 21:00 68 17 141/68 H 96 10/14/24 19:03 77 19 95 10/14/24 19:03 76 22 135/66 95 10/14/24 18:33 76 14 93 10/14/24 18:30 173/79 H 10/14/24 18:22 76 10/14/24 18:05 36.5 C 89 19 209/79 H 91 O2 Del Method O2 Flow Rate 10/14/24 21:00 Room Air 10/14/24 19:03 Nasal Cannula 1 10/14/24 19:03 Nasal Cannula 1 10/14/24 18:33 10/14/24 18:30 10/14/24 18:22 10/14/24 18:05 Room Air Diagnostic Findings Laboratory Results WBC 7.72 K/ul (4.8-10.8) 10/14/24 18:46 RBC 3.82 M/uL (4.20-5.40) L 10/14/24 18:46 Hgb 11.4 g/dl (12.0-16.0) L 10/14/24 18:46 Hct 34.4 % (37.0-47.0) L 10/14/24 18:46 MCV 90.1 fL (80.0-100.0) 10/14/24 18:46 MCH 29.8 pg (25.0-34.0) 10/14/24 18:46 MCHC 33.1 g/dL (32.0-36.0) 10/14/24 18:46 RDW Std Deviation 51.3 fL (36.4-46.3) H 10/14/24 18:46 RDW Coeff of Cindy 15.6 % (11.5-14.5) H 10/14/24 18:46 Plt Count 375 K/uL (130-400) 10/14/24 18:46 MPV 9.1 fL (9.4-12.4) L 10/14/24 18:46 Immature Gran % (Auto) 0.4 % 10/14/24 18:46 Neut % (Auto) 85.8 % 10/14/24 18:46 Lymph % (Auto) 7.9 % 10/14/24 18:46 Hunt % (Auto) 5.8 % 10/14/24 18:46 Eos % (Auto) 0.0 % 10/14/24 18:46 Baso % (Auto) 0.1 % 10/14/24 18:46 Neut # (Auto) 6.62 K/uL (1.40-6.50) H 10/14/24 18:46 Lymph # (Auto) 0.61 K/uL (1.20-3.40) L 10/14/24 18:46 Hunt # (Auto) 0.45 K/uL (0.11-0.59) 10/14/24 18:46 Eos # (Auto) 0.00 K/uL (0.00-0.50) 10/14/24 18:46 Baso # (Auto) 0.01 K/uL (0.00-0.20) 10/14/24 18:46 Immature Gran # (Auto) 0.03 K/uL (0.01-0.20) 10/14/24 18:46 PT 11.2 Seconds (9.0-12.0) 10/14/24 18:46 INR 1.0 (0.9-1.1) 10/14/24 18:46 VBG pH 7.44 (7.36-7.41) H 10/14/24 18:46 VBG pCO2 36 mmHg (38-50) L 10/14/24 18:46 VBG pO2 21 mmHg 10/14/24 18:46 VBG HCO3 25 mmol/L 10/14/24 18:46 VBG O2 Saturation < 60.0 % 10/14/24 18:46 VBG Base Excess 0.6 mEq/L 10/14/24 18:46 Sodium 132 mmol/L (136-145) L 10/14/24 18:46 Potassium 3.6 mmol/L (3.5-5.1) 10/14/24 18:46 Chloride 96 mmol/L (98-107) L 10/14/24 18:46 Carbon Dioxide 28 mmol/L (21-32) 10/14/24 18:46 Anion Gap 8 (3-11) 10/14/24 18:46 BUN 24 mg/dl (6-23) H 10/14/24 18:46 Creatinine 0.91 mg/dl (0.6-1.2) 10/14/24 18:46 Est Cr Clr Drug Dosing Not Reportable 10/14/24 18:46 eGFR 61.82 10/14/24 18:46 BUN/Creatinine Ratio 26.4 (10-20) H 10/14/24 18:46 Glucose 196 mg/dl (70-99(Fasting)) H 10/14/24 18:46 Calcium 9.3 mg/dl (8.6-10.3) 10/14/24 18:46 Magnesium 1.5 mg/dl (1.7-2.4) L 10/14/24 18:46 Total Bilirubin 1.0 mg/dl (0.2-1.0) 10/14/24 18:46 AST 34 U/L (13-39) 10/14/24 18:46 ALT 27 U/L (7-52) 10/14/24 18:46 Alkaline Phosphatase 135 U/L (34-104) H 10/14/24 18:46 Troponin I High Sens 350.1 pg/ml (0-14) H* 10/14/24 20:54 B-Natriuretic Peptide 3140 pg/ml (0-100) H 10/14/24 18:46 Total Protein 7.0 gm/dl (6.0-8.3) 10/14/24 18:46 Albumin 3.8 gm/dl (3.4-5.0) 10/14/24 18:46 Globulin 3.2 gm/dl (2.5-4.0) 10/14/24 18:46 Albumin/Globulin Ratio 1.2 (0.9-2) 10/14/24 18:46 Adenovirus (PCR) Not Detected (NotDetected) 10/14/24 18:46 B. pertussis DNA (PCR) Not Detected (NotDetected) 10/14/24 18:46 B.parapertussis DNA PCR Not Detected (NotDetected) 10/14/24 18:46 C. pneumoniae DNA (PCR) Not Detected (NotDetected) 10/14/24 18:46 Coronavirus OC43 (PCR) Not Detected (NotDetected) 10/14/24 18:46 Coronavirus HKU1 (PCR) Not Detected (NotDetected) 10/14/24 18:46 Coronavirus 229E (PCR) Not Detected (NotDetected) 10/14/24 18:46 SARS-CoV-2 (PCR) Not Detected (NotDetected) 10/14/24 18:46 Coronavirus NL63 (PCR) Not Detected (NotDetected) 10/14/24 18:46 Human Metapneumovir PCR Not Detected (NotDetected) 10/14/24 18:46 Influenza Type A (PCR) Not Detected (NotDetected) 10/14/24 18:46 Influenza Type B (PCR) Not Detected (NotDetected) 10/14/24 18:46 M. pneumoniae (PCR) Not Detected (NotDetected) 10/14/24 18:46 Parainfluenza 1 (PCR) Not Detected (NotDetected) 10/14/24 18:46 Parainfluenza 2 (PCR) Not Detected (NotDetected) 10/14/24 18:46 Parainfluenza 3 (PCR) Not Detected (NotDetected) 10/14/24 18:46 Parainfluenza 4 (PCR) Not Detected (NotDetected) 10/14/24 18:46 RSV (PCR) Not Detected (NotDetected) 10/14/24 18:46 Entero/Rhino (PCR) Not Detected (NotDetected) 10/14/24 18:46 Impressions Chest X-Ray 10/14/24 18:15 Clinical History: Dyspnea Technique: A frontal view of the chest was obtained Comparison is made to the prior examination dated 09/15/2024 Findings: There is worsened right lung base opacity, concerning for pneumonia. The heart is mildly enlarged. There is mild pulmonary edema. No definite pneumothorax is seen. There are suspected small bilateral pleural effusions No fracture is noted. No foreign body is seen Impression: 1. Small bilateral pleural effusions 2. Cardiomegaly and mild pulmonary edema 3. Possible right lower lobe pneumonia ACT 112: Positive. There are findings on this exam that require communication between the performing entity and the patient following Patient Test Result Information Act ([place] ACT 112) guidelines. Electronically signed by Migue Friedman 10-14-2024 6:41 PM Chest CTA 10/14/24 18:50 Clinical history: Dyspnea Technique: Axial computed tomography images were obtained of the chest after the administration of intravenous contrast according to the CT angiogram protocol Comparison is made to the prior CT dated 09/16/2024 Findings: There is no definite sign of pulmonary embolism. There is mild emphysema. There are new bilateral small to moderate sized pleural effusions. There is mild bilateral lower lobe atelectasis. There is no definite sign of pneumonia. There is no pneumothorax. There is no sign of pulmonary fibrosis or other diffuse interstitial process. No endobronchial lesion is seen There is no mediastinal, hilar, or axillary adenopathy. The thoracic aorta appears unremarkable with no sign of aneurysm or dissection. There is no pericardial effusion. There is coronary atherosclerosis The visualized upper abdomen appears unremarkable. There are multiple old left rib fractures. No focal osseous lesion is evident Impression: 1. No definite sign of pulmonary embolism 2. New bilateral pleural effusions 3. Mild emphysema 4. Coronary atherosclerosis Electronically signed by Migue Friedman 10-14-2024 7:57 PM ECG Additional Comments: ECG. Sinus rhythm with frequent PVCs in a pattern of bigeminy at the rate of 80. Left atrial lodgment. Left ventricle hypertrophy. Prolonged QT
[2024-10-14 23:30] LABS: Appearance Urine Clear (Clear); Bacteria Urine Automated 3+ (None Seen); Bilirubin Urine Negative (Negative); Blood Urine 1+ (Negative); Cast Urine Automated 0-2 /lpf (0-2); Color Urine Yellow; Epithelial Cell Urine Auto 0-2 /hpf (0-2); Glucose Urine UA Negative (Negative); Ketones Urine Negative (Negative); Leukocyte Esterase Urine 3+ (Negative); Nitrite Urine Negative (Negative); Protein Urine Negative (Negative); Specific Gravity Urine 1.013 (1.000-1.030); Urobilinogen Urine Negative (Negative); WBC Urine Automated 0-5 /hpf (0-5)
[2024-10-14 23:51] LABS: Uric Acid Crystals Urine Present (None Prsent)
[2024-10-15] MEDS ORDERED: NITROGLYCERIN SL 0.4 MG/TAB TAB SL PRN (01:11)
[2024-10-15] MEDS ORDERED: POLYETHYLENE (MIRALAX) 17 GM PACK PO PRN (01:11)
[2024-10-15] MEDS ORDERED: ACETAMINOPHEN 325 MG TAB PO PRN (01:11)
[2024-10-15] MEDS ORDERED: ARTIFICIAL TEARS OPB PRN (01:20)
[2024-10-15] MEDS: Patient's HEIGHT &/or WEIGHT Needed STA (01:49)
[2024-10-15] MEDS: LORazepam 0.5 MG TAB SL PRN (01:56)
[2024-10-15 06:46] LABS: Basophils # (auto) 0.02 K/uL (0.00-0.20); Basophils % (auto) 0.2 %; Eosinophils # (auto) 0.01 K/uL (0.00-0.50); Eosinophils % (auto) 0.1 %; Hematocrit (blood only) 36.2 % (37.0-47.0); Hemoglobin 11.9 g/dl (12.0-16.0); Immature Granulocytes # (auto) 0.06 K/uL (0.01-0.20); Immature Granulocytes % (auto) 0.6 %; Lymphocytes # (auto) 1.79 K/uL (1.20-3.40); Lymphocytes % (auto) 18.3 %; Mean Corpuscular Hemoglobin 29.9 pg (25.0-34.0); Mean Corpuscular Hgb Conc 32.9 g/dL (32.0-36.0); Mean Platelet Volume 9.2 fL (9.4-12.4); Monocytes # (auto) 1.23 K/uL (0.11-0.59); Monocytes % (auto) 12.6 %; Neutrophils # (auto) 6.69 K/uL (1.40-6.50); Neutrophils % (auto) 68.2 %; Platelet Count 415 K/uL (130-400); RDW Coefficient of Variation 15.4 % (11.5-14.5); Red Blood Count 3.98 M/uL (4.20-5.40)
[2024-10-15 07:08] LABS: BUN Creatinine Ratio 27.1 (10-20); Calcium 9.1 mg/dl (8.6-10.3); Potassium 3.1 mmol/L (3.5-5.1)
[2024-10-15 07:16] LABS: Troponin I High Sensitivity 284.7 pg/ml (0-14)
[2024-10-15] MEDS: CHOLECALCIFEROL 25 MCG (1000 UNITS) TAB PO SCH (08:02)
[2024-10-15] MEDS: FOLIC ACID 400 MCG TAB PO SCH (08:03)
[2024-10-15] MEDS: CYCLOBENZAPRINE HCL 5 MG TAB PO PRN (08:03)
[2024-10-15] MEDS: ENOXAPARIN INJ 30 MG/0.3 ML SYR SQ SCH (08:03)
[2024-10-15] MEDS: LOSARTAN POTASSIUM 50 MG TAB PO SCH (08:04)
[2024-10-15] MEDS: busPIRone 15 MG TAB PO SCH ×2 (08:04→20:10)
[2024-10-15] MEDS: METOPROLOL TARTRATE 25 MG TAB PO SCH ×2 (08:05→21:34)
[2024-10-15] MEDS: THIAMINE HCL 100 MG TAB PO SCH (08:05)
[2024-10-15] MEDS: methylPREDNISolone 4 MG TAB PO SCH (08:05)
[2024-10-15] MEDS: oxyCODONE HCL IR 5 MG TAB (IMMEDIATE RELEASE) PO PRN (08:07)
[2024-10-15] MEDS: FUROSEMIDE 40 MG/4 ML VIAL IV SCH (08:11)
--- NOTE | 2024-10-15 08:37 | Cardiology Consultation ---
Date of Consultation October 15, 2024 Assessment & Plan (1) Acute exacerbation of CHF (congestive heart failure): (2) Pleural effusion on right: (3) Pleural effusion on left: (4) Elevated troponin: (5) Hypomagnesemia: (6) Hypokalemia: (7) Non-sustained ventricular tachycardia: Plan Assessment: 84 year old female admitted for hypoxia, found to have bilateral pleural effusions, possible UTI and electrolyte imbalances. Cardiology requested for assessment/recommendations. Plan: 1. Acute exacerbation of CHF 2. bilateral pleural effusions 3. Elevated Troponin -patient with history of hypertensive heart disease, mixed valvular disease who presents with shortness of breath and hypoxia. -BNP with modest elevation, Imaging suggestive of bilateral pleural effusions. Responded well to Lasix 60mg IV x1 dose in the ER -Continue Furosemide 40mg IV daily -Troponin elevated in the setting of heart failure; however, will need to check echocardiogram to assess overall structure and function as well as for any new wall motion abnormality because patient is having increased ectopy. Patient remains chest pain free. -Daily weights, and strict I&O are needed. Serum K > 4.0 and Serum Mag > 2.0 -Repeat EKG due to elevated troponin, increase in ectopy and initial study with prolonged QT -Continue Lopressor 25mg PO BID, Furosemide 40mg IV daily and Losartan 50mg PO BID as per current HF regimen. -Further recommendations pending echo. 4. Hypomagnesia 5. Hypokalemia 6. Non-sustained VT -magnesium has since been supplemented with recent labs showing serum mag of 2.0 -Patient's potassium currently being supplemented. -Recommend repeat BMP at 1700 today -Close monitoring of labs in the setting of diuresis, possible acute infectious process and also with increased ectopy on Telemetry. -Awaiting echocardiogram to assess for any change in LV function, wall motion abnormalities or valvular disease to suggest any further reason for her elevated troponins, increased ventricular ectopy or HF exacerbation. Case has been discussed with Dr. Mendoza. Further recommendations regarding plan of care as per his assessment. I spent a total of 40 minutes on the date of service in preparation, delivery, documentation of the care provided to the patient excluding any time spent in the performance of separately billed services. AUREA Rodriguez [facility] Cardiology [facility] Supervising Physician Co-Signing Physician Notes I have personally performed a history and physical examination on the patient. I have reviewed the advance practitioner's documentation, and I agree with, and take responsibility for the plan of care. 84-year-old female with recent pelvic fracture after mechanical fall presents to the emergency room with shortness of breath. She is a poor historian unable to offer details of symptoms leading up to hospitalization. According to ER notes the patient was short of breath. Chest x-ray demonstrating pulmonary vascular congestion and pleural effusions. She was treated with a dose of IV furosemide. Earlier this a.m. patient was experiencing significant discomfort of her pelvis and low back related to recent fracture. During episode of extreme pain, patient monitor demonstrating frequent PVCs and runs of nonsustained ventricular tachycardia as well as torsades. Repeat ECG revealing deep T wave inversions and QT prolongation. Findings suggest myocardial injury due to ischemia versus stress-induced (tako tsubo) event. No recurrent ventricular tachycardia since 9:20 AM after patient received narcotic pain medication. Bedside echocardiogram demonstrating a small area of akinesis involving the mid and apical anteroseptum otherwise normal wall motion. LV function is preserved. Patient denies any chest discomfort currently however, recalls episode of chest pain more than 2 weeks ago after suffering her pelvic fracture. Her troponins were mildly elevated on presentation, however, trending downward throughout hospitalization. Impression 1. NSTEMI vs. possible stress induced (tako tsubo) cardiomyopathy -Troponin trending downward -Patient without chest discomfort -Echocardiogram with anteroseptal wall motion abnormality and preserved LV systolic function 2. Nonsustained ventricular tachycardia (Torsades de pointes) 3. Prolonged QT interval 4. Hypokalemia and hypomagnesemia 5. Acute heart failure with preserved ejection fraction 6. Significant pelvic pain related to recent fracture. Plan/Recommendations: * IV heparin infusion. * Increase metoprolol to 25 mg 3 times daily. * No aspirin due to documented allergy (hives). * Consider addition of clopidogrel if no signs/symptoms of blood loss after initiation of IV heparin. * Give additional 1 g IV magnesium sulfate now. * Add daily potassium supplement * Maintain serum potassium greater than 4.0 and serum magnesium greater than 2.0. * Repeat basic metabolic panel and serum magnesium level at 5 PM today. * ECG in a.m. * Continue daily Lasix 40 mg. * Monitor daily weight, fluid balance, GFR, and electrolytes. * Avoid medications with potential to prolong the QT interval. I spent a total of 60 minutes on the date of service in preparation, delivery, and documentation of the care provided to this patient, excluding any time spent in the performance of separately billed services. Sam Mendoza DO, [facility] History of Present Illness Reason for Consultation: Acute CHF; elevated Troponin Requesting Physician: Lu Horanist Attending Physician: Tristan Goncalves MD History of Present Illness HPI: Patient is an 84 year old female with PMHx significant for Hypertensive heart disease, Moderate LVH, LVOT obstruction with valsalva, Palpitations, dyslipidemia, HTN, mixed valvular heart disease, CKD Stage III, PVD, GERD, Hx of a stomach tumor s/p resection and remote hx of hemodialysis dating back to 2012 thought to be related to a reaction to valacyclovir who presented to the ER on with with concerns of shortness of breath and tachypnea. She is currently residing at [facility] after sustaining a ground level fall with subsequent pelvic fracture requiring hospitalization discharged on 09/19/24. Patient's O2 sats were 87% on room air. Upon seeing patient today in examination, its unclear what her baseline cognitive status is. she is aware she is in the hospital, but at the time of inital assessment she is perseverating on needing to urinate so unable to get many answers from her. I re-entered the room approximately 10 minutes later and patient has a son present in the room. Patient is alert to person and place, but struggles to tell me what she is here. She discussed her prior hospitalization which was s/t a fall and pelvic fracture. She thinks they sent her here because she is not progressing in physical therapy. Son is present and states that while visiting her yesterday she was notably short of breath. Patient denies any chest pain or pressure toda y. Denies palpitations. She denies any dizziness or lightheadedness. No syncope. 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 EKG on admission shows SR with PVC in bigeminy pattern, possible prior septal infarct. Prolonged QT interval of 558ms. Rate 80bpm chest X-ray Impression: 1. Small bilateral pleural effusions 2. Cardiomegaly and mild pulmonary edema 3. Possible right lower lobe pneumonia CT Chest : Impression: 1. No definite sign of pulmonary embolism 2. New bilateral pleural effusions 3. Mild emphysema 4. Coronary atherosclerosis High sensitivity troponin 413.9/ 350.1/284.7 + UA, culture pending Echo pending Review of telemetry shows SR with PVC 60-80's; however, between 0758 and 0915 this morning, patient was having increased ectopy including runs bigeminy, couplets, triplets and multiple runs of VT ranging from 4-9 beats. Her Serum Magnesium on Admission was 1.5 which has been successfully replaced and newest labs shows a serum mag of 2.0. Her serum K is 3.1 and she is currently receiving a K-Gerardo. patient denies any chest pain, pressure, palpitations, dizziness or lightheadedness this morning and no knowledge of having ectopy. Allergies Allergy/AdvReac Type Severity Reaction Status Date / Time aspirin Allergy Severe Hives Verified 07/19/24 13:32 NSAIDS (Non-Steroidal Allergy Severe Anaphylaxis Verified 07/19/24 13:32 Anti-Inflamma NOEL Inhibitors Allergy Unknown HIVES, Verified 07/19/24 13:32 SWELLING OF FACE ibuprofen Allergy Unknown Hives Verified 07/19/24 13:32 pantoprazole Allergy Unknown Unknown Verified 07/19/24 13:32 Xqiovis-QJW-OgX Reductase Allergy Unknown "arms and Verified 07/19/24 13:32 Inhibitor legs achy" [Ijexvox-Krm-Vgx Reductase Inhibitor] pravastatin [From Pravachol] AdvReac Severe liver Verified 07/19/24 13:32 complications gabapentin AdvReac Unknown Edema Verified 07/19/24 13:32 valacyclovir [From Valtrex] AdvReac Unknown Kidneys Verified 07/19/24 13:32 shut down Home Medications Medication Instructions Recorded Confirmed Type ezetimibe 10 mg tablet (Zetia) 10 mg PO HS 06/14/20 10/14/24 History fenofibrate micronized 67 mg 67 mg PO HS 06/14/20 10/14/24 History capsule lorazepam 0.5 mg tablet 0.5 mg sublingual HS PRN Insomnia 06/14/20 10/14/24 History lifitegrast 5 % eye drops in a 1 drp OPB BID 06/19/20 10/14/24 History dropperette (Xiidra) cholecalciferol (vitamin D3) 100 100 mcg PO DAILY 07/16/23 10/14/24 History mcg (4,000 unit) tablet escitalopram oxalate 10 mg tablet 10 mg PO DAILY 07/16/23 10/14/24 History escitalopram oxalate 20 mg tablet 20 mg PO DAILY 07/16/23 10/14/24 History ondansetron 4 mg disintegrating 8 mg PO Q8 PRN nausea 07/16/23 10/14/24 History tablet losartan 50 mg tablet 50 mg PO BID #60 tabs 01/01/24 10/14/24 Rx famotidine 20 mg tablet 20 mg PO HS 09/14/24 10/14/24 History furosemide 20 mg tablet 20 mg PO DAILY PRN Fluid Retention 09/14/24 10/14/24 History Flutter Valve #1 ea 09/19/24 10/14/24 Rx folic acid 400 mcg tablet 400 mcg PO QAM #30 tabs 09/19/24 10/14/24 Rx thiamine HCl (vitamin B1) 100 mg 100 mg PO QAM #30 tabs 09/19/24 10/14/24 Rx tablet acetaminophen 325 mg tablet 650 mg PO Q4 PRN PAIN 1-3 10/14/24 10/14/24 History bisacodyl 5 mg tablet,delayed 10 mg PO DAILY PRN Constipation 10/14/24 10/14/24 History release (Gentle Laxative (bisacodyl)) buspirone 15 mg tablet 15 mg PO DAILY 10/14/24 10/14/24 History buspirone 30 mg tablet 30 mg PO QPM 10/14/24 10/14/24 History cyclobenzaprine 5 mg tablet 5 mg PO TID PRN Muscle Spasm 10/14/24 10/14/24 History duloxetine 30 mg capsule,delayed 30 mg PO QPM 10/14/24 10/14/24 History release methylprednisolone 4 mg tablets in 4 mg PO UD 10/14/24 10/14/24 History a dose pack metoprolol tartrate 25 mg tablet 25 mg PO Q12 10/14/24 10/14/24 History omeprazole 40 mg capsule,delayed 40 mg PO BIDM 10/14/24 10/14/24 History release oxycodone 15 mg tablet,crush 15 mg PO AMHS 10/14/24 10/14/24 History resistant,extended release 12 hr oxycodone 5 mg tablet 5 mg PO Q8H PRN PAIN,MODERATE 10/14/24 10/14/24 History Patient History Medical History Vitamin D deficiency Mitral regurgitation Aortic stenosis Surgical History History of hysterectomy History of cholecystectomy Family History Other No pertinent family history Social History Smoking Status: Never smoker Second Hand Exposure: No; Do You Dip or Chew Tobacco: No; Tobacco Cessation Education Requested by Patient: No Hx Alcohol Use: Yes Alcohol type: beer and wine Alcohol Intake Frequency Comment: was daily but pt reports cutting back over past few months Hx Substance Use: No Preferred Language: Paragu[place] Communication Ability: Effective Home Inspector Required: No Beliefs That Will Affect Care: None marital status: Unknown Current Living Situation: Alone Current Living Situation Comment: High Rise Apartment Complex Other Information That Helps Us Care for You: No Feels Safe at Home: Yes Safety Concerns: Feels Safe At This Time Assistive Devices: None Review of Systems Review of Systems: All systems reviewed & are unremarkable except as noted in HPI & below Physical Exam Constitutional: + frail appearing; no acute distress and not ill appearing Neck: normal visual inspection and trachea midline Respiratory: normal respiratory effort; no respiratory distress and no cough Auscultation: + diminished lung sounds (Bilateral bases ); no crackles, no rales, no rhonchi and no wheezes Cardiovascular: Rate/Rhythm: regular rate and regular rhythm (increased ectopy this AM as noted in HPI) Heart Sounds: normal S1, normal S2 and + murmur (+1/6 systolic) Vessels: dorsalis pedis pulses present; no JVD Extremities: no edema Skin: no rashes, warm and dry Psychiatric: Orientation: alert, oriented to person and oriented to place Apperance: appeared stated age Affect: + anxious affect Results & Data Vital Signs (Past 12 Hours) Vital Signs Temp Pulse Pulse Resp BP BP BP 10/15/24 07:47 36.4 C L 76 17 183/82 H 10/15/24 01:34 36.5 C 71 21 168/90 H 10/15/24 01:13 64 10/15/24 01:11 10/15/24 01:08 83 17 168/69 H 10/15/24 01:00 10/14/24 23:00 71 21 166/74 H 10/14/24 22:13 74 10/14/24 21:00 68 17 141/68 H Pulse Ox Pulse Ox O2 Del Method O2 Del Method O2 Flow Rate O2 Flow Rate 10/15/24 07:47 91 Nasal Cannula 10/15/24 01:34 98 Nasal Cannula 1 10/15/24 01:13 10/15/24 01:11 98 Nasal Cannula 1 10/15/24 01:08 98 Nasal Cannula 1 10/15/24 01:00 Nasal Cannula 1 10/14/24 23:00 95 Nasal Cannula 1 10/14/24 22:13 10/14/24 21:00 96 Room Air Laboratory Results Cardiac Enzymes 10/14/24 10/14/24 10/15/24 Range/Units 18:46 20:54 05:33 AST 34 (13-39) U/L Troponin I High Sens 413.9 H* 350.1 H* 284.7 H* (0-14) pg/ml B-Natriuretic Peptide 3140 H (0-100) pg/ml Coagulation 10/14/24 Range/Units 18:46 PT 11.2 (9.0-12.0) Seconds B-Natriuretic Peptide 3140 H (0-100) pg/ml CBC 10/14/24 10/15/24 Range/Units 18:46 05:33 WBC 7.72 9.80 (4.8-10.8) K/ul RBC 3.82 L 3.98 L (4.20-5.40) M/uL Hgb 11.4 L 11.9 L (12.0-16.0) g/dl Hct 34.4 L 36.2 L (37.0-47.0) % Plt Count 375 415 H (130-400) K/uL Neut # (Auto) 6.62 H 6.69 H (1.40-6.50) K/uL Lymph # (Auto) 0.61 L 1.79 (1.20-3.40) K/uL Dooly # (Auto) 0.45 1.23 H (0.11-0.59) K/uL Eos # (Auto) 0.00 0.01 (0.00-0.50) K/uL Baso # (Auto) 0.01 0.02 (0.00-0.20) K/uL Comprehensive Metabolic Panel 10/14/24 10/15/24 Range/Units 18:46 05:33 Sodium 132 L 133 L (136-145) mmol/L Potassium 3.6 3.1 L (3.5-5.1) mmol/L Chloride 96 L 93 L (98-107) mmol/L Carbon Dioxide 28 32 (21-32) mmol/L BUN 24 H 23 (6-23) mg/dl Creatinine 0.91 0.85 (0.6-1.2) mg/dl Glucose 196 H 91 (70-99(Fasting)) mg/dl Calcium 9.3 9.1 (8.6-10.3) mg/dl AST 34 (13-39) U/L ALT 27 (7-52) U/L Alkaline Phosphatase 135 H (34-104) U/L Total Protein 7.0 (6.0-8.3) gm/dl Albumin 3.8 (3.4-5.0) gm/dl Intake and Output 10/14/24 10/15/24 10/15/24 22:59 06:59 14:59 Intake Total 200 / 200 Balance 200 / 200 Intake: IV 200 / 200 Magnesium Sulfate / D5w 1 gm In 200 / 200 100 ml @ 50 mls/hr IV ONE ONE Rx#:[id number] Other: # Unmeasured Voids 2 Weight 45.269 kg Weight Measurement Method Built in [facility] Diagnostic Findings EKG 06/09/23 CONCLUSIONS: Normal sinus rhythm High QRS voltage may be normal variant or due to lve Septal infarct , age undetermined Abnormal ECG When compared with ECG of 07-NOV-2021 13:29, No significant change was found Ventricular Rate: 60 Echocardiogram 11/2024 obtained from [facility] LVEF 60-64% Interpretation Summary The examination is adequate to evaluate the referral indication. The LV wall thickness is moderately increased (concentric). The left atrium is mildly enlarged (35-41 ml/m^2). There is aortic valve sclerosis without stenosis. Moderate mitral regurgitation is present. The mitral regurgitation jet is posteriorly directed. Mild tricuspid regurgitation is present. The estimated pulmonary artery systolic pressure is 38mm Hg. Compared to prior study of , there is no significant change.
[2024-10-15] MEDS ORDERED: NON-FORMULARY MEDICATION (Methylprednisolone 4 mg tablets,dose pack) PO SCH (09:00)
[2024-10-15] MEDS: NITROGLYCERIN 2% OINTMENT 30GM TUBE EXT ONE (09:15)
[2024-10-15] MEDS: POTASSIUM CHLORIDE 20 MEQ/15 ML UDC PO STA (09:16)
[2024-10-15] MEDS: oxyCODONE HCL 15 MG TABCR (OxyCONTIN) PO SCH (09:20)
[2024-10-15] MEDS: POTASSIUM CHLORIDE / WTR 10 MEQ/100 ML PLCT IV SCH (11:04)
[2024-10-15] MEDS ORDERED: HYDROmorphone INJ 0.5 MG/0.5 ML SYR IV PRN (11:57)
--- NOTE | 2024-10-15 13:07 | Hospitalist Progress Note ---
Date of Service October 15, 2024 Assessment & Plan (1) Acute exacerbation of CHF (congestive heart failure): Plan: 84-year-old female with past medical history significant for hypertension, hypertrophic cardiomyopathy, moderate left ventricular hypertrophy, valvular heart disease, CKD stage III, history of dialysis in 2013 thought to be reaction from valacyclovir, history of anaphylactic shock due NOEL inhibitors, history of stomach tumor s/p resection, dyslipidemia, prediabetes, pulmonary hypertension, peripheral vascular disease, GERD, chronic low back pain, osteoarthritis, osteoporosis, migraine, history of tobacco use, depression, who was admitted in end of August 2024 for mechanical fall and pelvic fracture and she was discharged to rehab on . Currently she is at [facility]. She still having significant pain in the back and radiating to the legs. Saw orthopedics recently for sciatica. On pain medications. Ambulating with walker short distance. She was sent in today to the hospital because of shortness of breath and tachypnea. Her oxygen saturations were in 87% room air and on nasal cannula saturating okay currently. Daughter is in the room. Denies any cough. Denies any fevers. No chest pain. Has constant runny nose. Has some sore throat. Currently no headache. No abdominal pain. Constipated. Micturating okay. No lower extremity edema. Hemodynamics are okay. Acute CHF Presents with shortness of breath CTA chest no PE. New bilateral pleural effusions- likely secondary to CHF Prior Echocardiogram reporting HCM and LVOT gradient with Valsalva. Has moderate aortic regurgitation, mild to moderate mitral regurgitation and mild tricuspid Regurgitation BNP 3140 Received IV Lasix 60 mg in the ER Has been getting 40mg IV Lasix Daily weights and I's and O's Has not had much urine output yet and will continue intravenous Lasix with electrolyte replacement Appreciate cardiology input and recommendation Increased troponin- likely stress-induced from CHF and doubt any ACS Possible demand ischemia Initial troponin 413 and repeat is 350 ER spoke with interventional cardiology on-call and currently no heparin recommended for now and monitor Serial cardiac enzymes have been improving Echo of the heart is pending and pending cardiac evaluation The patient remains free from any cardiac symptoms Has been having frequent short segment of VTpotassium and magnesium were on the lower side and those have been replaced Back pain Ongoing Recent pelvic fracture Continue pain medications on steroid taper , couple more days to finish PT OT when stable Pain seems to be increasing and will give as needed Dilaudid intravenously to control for the pain Prolonged QTc Will hold Lexapro and duloxetine for now Avoid QT prolonging drugs Follow repeat EKG Hypomagnesia Replace Follow labs CKD stage III Creatinine 0.9 We will monitor Hypertension On metoprolol tartrate, losartan Will monitor Prediabetes Follow HbA1c levels Hyperlipidemia On Zetia and fenofibrate Depression On buspirone Holding Lexapro and duloxetine Hyponatremia SIADH Sodium 132 Will monitor History of alcohol use Seems drinks 2 to 3 glasses of wine Currently coming from [facility] Will monitor Chronic pain disorder Opiate dependence Continue current pain medications DVT prophylaxis Lovenox Disposition Telemetry Full code. Admission and Anticipated Discharge Date Admission Date: October 14, 2024 Subjective 10/15/2024 The patient was seen and examined in telemetry unit in presence of the family member She has been complaining of severe pain involving the lower back on the left side radiation of pain to the left lower extremity. She does not have any problem with urine and bowel habit She denies any chest pain, palpitation or shortness of breath at rest No fever and no chills, no abdominal pain nausea no vomiting Review of Systems Review of Systems: All systems reviewed and are unremarkable except as noted below Physical Exam 2 Physical Exam: Lying in bed without any acute distress Constitutional: + ill appearing and + thin Eyes: PERRL, conjunctivae normal, anicteric sclerae ENMT: external ear and nose normal, oropharynx normal Neck: trachea midline, no thyromegaly Respiratory: no respiratory distress Auscultation: + diminished lung sounds and + crackles ( minimal crackles at the bases) Cardiovascular: Rate/Rhythm: + abnormal rate, + abnormal rhythm and not tachycardic Heart Sounds: normal S1, normal S2 and + murmur Extremities: no edema Gastrointestinal (Abdomen): Inspection/Auscultation: normal bowel sounds; abdomen not distended Percussion/Palpation: abdomen soft; abdomen nontender Musculoskeletal: No acute arthritis involving any of the joint Localized back tenderness at the lower lumbar area. No sensory impairment involving the extremities. Straight leg raising was painful with radicular type of symptoms on the left side. Neurologic: normal touch/pain/proprioception and moves all extremities; no focal motor deficits Lymphatic: no cervical or axillary lymphadenopathy Results & Data Results & Data Vital Signs (Past 12 Hours) Vital Signs Temp Pulse Pulse Resp BP BP BP 04/27/25 10:59 36.4 C L 60 14 132/70 10/15/24 07:47 36.4 C L 76 17 183/82 H 10/15/24 01:34 36.5 C 71 21 168/90 H 10/15/24 01:13 64 10/15/24 01:11 10/15/24 01:08 83 17 168/69 H 10/15/24 01:00 Pulse Ox Pulse Ox O2 Del Method O2 Del Method O2 Flow Rate O2 Flow Rate 10/15/24 10:59 96 Nasal Cannula 1 10/15/24 07:47 91 Nasal Cannula 10/15/24 01:34 98 Nasal Cannula 1 10/15/24 01:13 10/15/24 01:11 98 Nasal Cannula 1 10/15/24 01:08 98 Nasal Cannula 1 10/15/24 01:00 Nasal Cannula 1 Laboratory Results Short CBC 10/14/24 10/15/24 Range/Units 18:46 05:33 WBC 7.72 9.80 (4.8-10.8) K/ul Hgb 11.4 L 11.9 L (12.0-16.0) g/dl Hct 34.4 L 36.2 L (37.0-47.0) % Plt Count 375 415 H (130-400) K/uL BMP 10/14/24 10/15/24 18:46 05:33 Sodium 132 L 133 L Potassium 3.6 3.1 L Chloride 96 L 93 L Carbon Dioxide 28 32 BUN 24 H 23 Creatinine 0.91 0.85 Glucose 196 H 91 Calcium 9.3 9.1 Liver Function 10/14/24 Range/Units 18:46 Total Bilirubin 1.0 (0.2-1.0) mg/dl AST 34 (13-39) U/L ALT 27 (7-52) U/L Alkaline Phosphatase 135 H (34-104) U/L Albumin 3.8 (3.4-5.0) gm/dl Urine 10/14/24 Range/Units 22:20 Urine Color Yellow Urine Appearance Clear (Clear) Urine pH 7.0 (4.5-7.5) Ur Specific [place] 1.013 (1.000-1.030) Urine Protein Negative (Negative) Urine Glucose (UA) Negative (Negative) Medications Administered Current Inpatient Medications Acetaminophen (Acetaminophen 325 Mg Tab) 650 mg PO Q4H PRN PRN Reason: Pain or Fever Stop: 11/14/24 01:10 Artificial Tears (Artificial Tears) 1 drops OPB QID PRN PRN Reason: Dryness Stop: 11/14/24 01:19 Bisacodyl (Bisacodyl 5 Mg Tabec) 10 mg PO DAILY PRN PRN Reason: Constipation Stop: 11/14/24 01:10 Buspirone HCl (Buspirone 15 Mg Tab) 30 mg PO QPM TESHA Stop: 11/14/24 20:59 Buspirone HCl (Buspirone 15 Mg Tab) 15 mg PO DAILY TESHA Stop: 11/14/24 08:59 Last Admin: 10/15/24 08:04 Dose: 15 mg Cyclobenzaprine HCl (Cyclobenzaprine Hcl 5 Mg Tab) 5 mg PO TID PRN PRN Reason: Muscle Spasm Stop: 11/14/24 01:10 Last Admin: 10/15/24 08:03 Dose: 5 mg Ezetimibe (Ezetimibe 10 Mg Tab) 10 mg PO HS TESHA Stop: 11/14/24 20:59 Enoxaparin Sodium (Enoxaparin Inj 30 Mg/0.3 Ml Syr) 30 mg SQ Q24H TESHA Stop: 11/14/24 08:59 Last Admin: 10/15/24 08:03 Dose: 30 mg Famotidine (Famotidine 20 Mg Tab) 20 mg PO HS TESHA Stop: 11/14/24 20:59 Folic Acid (Folic Acid 400 Mcg Tab) 400 mcg PO QAM TESHA Stop: 11/14/24 08:59 Last Admin: 10/15/24 08:03 Dose: 400 mcg Furosemide (Furosemide 40 Mg/4 Ml Vial) 40 mg IV DAILY TESHA Stop: 11/14/24 08:59 Last Admin: 10/15/24 08:11 Dose: 40 mg Hydromorphone HCl (Hydromorphone Inj 0.5 Mg/0.5 Ml Syr) 0.5 mg IV Q6H PRN PRN Reason: Pain Stop: 10/29/24 11:56 Lorazepam (Lorazepam 0.5 Mg Tab) 0.5 mg SL HS PRN PRN Reason: Insomnia Stop: 11/14/24 01:10 Last Admin: 10/15/24 10:55 Dose: 0.5 mg Losartan Potassium (Losartan Potassium 50 Mg Tab) 50 mg PO BID [facility] Stop: 11/14/24 08:59 Last Admin: 10/15/24 08:04 Dose: 50 mg Methylprednisolone (Methylprednisolone 4 Mg Tab) 4 mg PO BID [facility]; Taper Stop: 10/17/24 08:59 Last Admin: 10/15/24 08:05 Dose: 4 mg Metoprolol Tartrate (Metoprolol Tartrate 25 Mg Tab) 25 mg PO Q12 [facility] Stop: 11/14/24 08:59 Last Admin: 10/15/24 08:05 Dose: 25 mg Miscellaneous (Fenofibrate 67mg - Order Awaiting Action) 1 each N/A QS [facility] Stop: 11/14/24 07:59 Last Admin: 10/15/24 08:04 Dose: Not Given Miscellaneous (Omeprazole 40 Mg - Order Awaiting Action) 1 each N/A QS [facility] Stop: 11/14/24 07:59 Last Admin: 10/15/24 08:04 Dose: Not Given Nitroglycerin (Nitroglycerin Sl 0.4 Mg/Tab Tab) 0.4 mg SL Q5M PRN PRN Reason: Chest Pain Stop: 11/14/24 01:10 Oxycodone HCl (Oxycodone Hcl Ir 5 Mg Tab (Immediate Release)) 5 mg PO Q8H PRN PRN Reason: PAIN,MODERATE Stop: 10/29/24 01:10 Last Admin: 10/15/24 08:07 Dose: 5 mg Oxycodone HCl (Oxycodone Hcl 15 Mg Tabcr (Oxycontin)) 15 mg PO BID [facility] Stop: 10/29/24 08:59 Last Admin: 10/15/24 09:20 Dose: 15 mg Polyethylene Glycol (Polyethylene (Miralax) 17 Gm Pack) 17 gm PO DAILY PRN PRN Reason: Constipation Stop: 11/14/24 01:10 Thiamine HCl (Thiamine Hcl 100 Mg Tab) 100 mg PO QAM [facility] Stop: 11/14/24 08:59 Last Admin: 10/15/24 08:05 Dose: 100 mg Vitamin D (Cholecalciferol 25 Mcg (1000 Units) Tab) 100 mcg PO DAILY [facility] Stop: 11/14/24 08:59 Last Admin: 10/15/24 08:02 Dose: 100 mcg
--- NOTE | 2024-10-15 13:15 | Electrocardiogram Report ---
Test Reason : Blood Pressure : */* mmHG Vent. Rate : 80 BPM Atrial Rate : 80 BPM P-R Int : 112 ms QRS Dur : 80 ms QT Int : 484 ms P-R-T Axes : 33 4 -3 degrees QTcB Int : 558 ms Poor data quality, interpretation may be adversely affected Sinus rhythm with frequent Premature ventricular complexes in a pattern of bigeminy Left atrial enlargement Left ventricular hypertrophy with repolarization abnormality ( Sokolow-Sherwood , Gillett product ) Septal infarct , likely acute Possible Lateral infarct , age undetermined Prolonged QT Abnormal ECG When compared with ECG of 30-Dec-2023 21:21, Premature ventricular complexes are now Present Acute septal infarction is now Present Prolonged QT is now Present Reconfirmed by Gabino Cooper ([id number]) on 10/15/2024 1:30:27 PM Referred By: Confirmed By: Gabino Cooper
--- NOTE | 2024-10-15 13:29 | Electrocardiogram Report ---
Test Reason : Blood Pressure : */* mmHG Vent. Rate : 92 BPM Atrial Rate : 35 BPM P-R Int : 132 ms QRS Dur : 84 ms QT Int : 702 ms P-R-T Axes : 68 -1 37 degrees QTcB Int : 868 ms Sinus rhythm with frequent , and consecutive Premature ventricular complexes Minimal voltage criteria for LVH, may be normal variant ( Sokolow-Sherwood ) Septal infarct (cited on or before 14-Oct-2024) Marked T wave abnormality, consider anterior ischemia Prolonged QT Abnormal ECG When compared with ECG of 14-Oct-2024 18:24, (unconfirmed) Serial changes of Septal infarct Present Confirmed by Gabino Cooper ([id number]) on 10/15/2024 1:29:07 PM Referred By: REFERRED SELF Confirmed By: Gabino Cooper
[2024-10-15] MEDS: Heparin IV Adult Wt-Based Standard w/ INITIAL Bolus Protocol IV SCH (14:55)
[2024-10-15] MEDS: MAGNESIUM SULFATE / D5W 1 GM/100 ML BAG IV ONE (15:16)
[2024-10-15] MEDS: METOPROLOL TARTRATE 25 MG TAB PO STA (15:17)
[2024-10-15 15:26] LABS: Basophils # (auto) 0.02 K/uL (0.00-0.20); Basophils % (auto) 0.3 %; Hematocrit (blood only) 33.7 % (37.0-47.0); Hemoglobin 11.1 g/dl (12.0-16.0); Immature Granulocytes # (auto) 0.04 K/uL (0.01-0.20); Immature Granulocytes % (auto) 0.6 %; Lymphocytes # (auto) 1.12 K/uL (1.20-3.40); Lymphocytes % (auto) 15.7 %; Mean Corpuscular Hemoglobin 29.7 pg (25.0-34.0); Mean Corpuscular Hgb Conc 32.9 g/dL (32.0-36.0); Mean Corpuscular Volume 90.1 fL (80.0-100.0); Mean Platelet Volume 9.1 fL (9.4-12.4); Monocytes # (auto) 0.84 K/uL (0.11-0.59); Monocytes % (auto) 11.8 %; Neutrophils # (auto) 5.12 K/uL (1.40-6.50); Neutrophils % (auto) 71.6 %; Platelet Count 371 K/uL (130-400); RDW Coefficient of Variation 15.4 % (11.5-14.5); RDW Standard Deviation 50.9 fL (36.4-46.3); Red Blood Count 3.74 M/uL (4.20-5.40); White Blood Count 7.14 K/ul (4.8-10.8)
[2024-10-15 15:56] LABS: INR 1.1 (0.9-1.1); Partial Thromboplastin Ratio 1.1; Partial Thromboplastin Time 29 Seconds (21-31); Prothrombin Time 11.6 Seconds (9.0-12.0)
[2024-10-15] MEDS: HEPARIN 25000 UNIT/500 ML D5W 25,000 UNITS/500 ML BAG IV SCH (16:21)
[2024-10-15] MEDS: HEPARIN SOD (PORCINE) 1000 UNIT/ML IV ONE (16:21)
[2024-10-15 17:56] LABS: BUN Creatinine Ratio 22.3 (10-20); Calcium 8.8 mg/dl (8.6-10.3); Creatinine Clr Calc Pharmacy 29.8 ml/min; Magnesium 2.3 mg/dl (1.7-2.4)
[2024-10-15 18:03] LABS: Troponin I High Sensitivity 183.8 pg/ml (0-14)
[2024-10-15] MEDS: EZETIMIBE 10 MG TAB PO SCH (20:08)
[2024-10-15] MEDS: FAMOTIDINE 20 MG TAB PO SCH (20:13)
[2024-10-15] MEDS: POTASSIUM CHLORIDE CRTAB 20 MEQ TABCR PO STA (21:31)
[2024-10-16 00:02] LABS: ANTI-Xa, UFH(UnfractionatedHep 0.72 IU/ml (0.3-0.7)
[2024-10-16 06:47] LABS: BUN Creatinine Ratio 24.2 (10-20); Calcium 8.7 mg/dl (8.6-10.3); Creatinine Clr Calc Pharmacy 29.5 ml/min; Magnesium 1.9 mg/dl (1.7-2.4); Potassium 4.5 mmol/L (3.5-5.1)
[2024-10-16 07:09] LABS: ANTI-Xa, UFH(UnfractionatedHep 0.45 IU/ml (0.3-0.7)
[2024-10-16] MEDS: POTASSIUM CHLORIDE CRTAB 20 MEQ TABCR PO SCH (08:09)
[2024-10-16] MEDS: MAGNESIUM SULFATE / D5W 1 GM/100 ML BAG IV ONE (08:41)
--- NOTE | 2024-10-16 09:06 | Cardiology Progress Note ---
Date of Service October 16, 2024 Assessment & Plan (1) Acute exacerbation of CHF (congestive heart failure): (2) Pleural effusion on right: (3) Pleural effusion on left: (4) Elevated troponin: (5) Hypomagnesemia: (6) Hypokalemia: (7) Non-sustained ventricular tachycardia: Plan Assessment: 84 year old female admitted for hypoxia, found to have bilateral pleural effusions, possible UTI and electrolyte imbalances. Cardiology requested for assessment/recommendations. Plan: 1. Acute exacerbation of CHF 2. bilateral pleural effusions 3. Elevated Troponin -patient with history of hypertensive heart disease, mixed valvular disease who presents with shortness of breath and hypoxia. -BNP with modest elevation, Imaging suggestive of bilateral pleural effusions. Responded well to Lasix 60mg IV x1 dose in the ER -Continue Furosemide 40mg IV daily -Troponin elevated in the setting of heart failure; however, will need to check echocardiogram to assess overall structure and function as well as for any new wall motion abnormality because patient is having increased ectopy. Patient remains chest pain free. -Daily weights, and strict I&O are needed. Serum K > 4.0 and Serum Mag > 2.0 -Repeat EKG due to elevated troponin, increase in ectopy and initial study wi th prolonged QT -Continue Lopressor 25mg PO BID, Furosemide 40mg IV daily and Losartan 50mg PO BID as per current HF regimen. -Further recommendations pending echo. 4. Hypomagnesia 5. Hypokalemia 6. Non-sustained VT -magnesium has since been supplemented with recent labs showing serum mag of 2.0 -Patient's potassium currently being supplemented. -Recommend repeat BMP at 1700 today -Close monitoring of labs in the setting of diuresis, possible acute infectious process and also with increased ectopy on Telemetry. -Awaiting echocardiogram to assess for any change in LV function, wall motion abnormalities or valvular disease to suggest any further reason for her elevated troponins, increased ventricular ectopy or HF exacerbation. 10/16/2024: -patient demonstrates clinical improvement from a cardiac perspective. -Discussion with family yesterday, with goals to pursue conservative management -Patient remains chest pain free -No further events on telemetry. Electrolytes are stable. -Primary team is working on pain control for her back pain and most recent pelvic fracture. -Continue Furosemide 40mg IV today. Renal function is stable. Goal serum K > 4.0 and Serum mag > 2.0 -Strict I and O as well as daily weights to assist in monitoring fluid status -Stop Metoprolol tartrate in favor of transitioning to Metoprolol Succinate 50mg PO BID starting this morning. -Continue Heparin gtt for a total of 48 hours given recent troponin elevation and echocardiogram findings -Will continue to follow Case has been discussed with Dr. Rees. Further recommendations regarding plan of care as per his assessment. I spent a total of 30 minutes on the date of service in preparation, delivery, documentation of the care provided to the patient excluding any time spent in the performance of separately billed services. AUREA Rodriguez [facility] Cardiology [facility] Admission and Anticipated Discharge Date Admission Date: October 14, 2024 Supervising Physician Co-Signing Physician Notes Patient was seen and personally examined. Full recommendations and plan as outlined above. 84-year-old female presented with severe pain, acute congestive heart failure with dramatically abnormal EKGs and segmental wall motion is the anterior apex ischemic versus stress mediated cardiomyopathy. Currently no cardiac complaints prior episodes of polymorphic ventricular tachycardia have resolved with treatment of metabolic derangements. Patient on appropriate therapies but still hypertensive and relatively tachycardic. Plan as above titrate beta-malaika higher ultimate goal heart rates in the 60s. Plan conservative medical management has already started. Will complete 48-hour IV heparin Subjective 10/16/2024: Patient seen and examined in follow up today. Feeling well from a cardiac perspective. offers no acute cardiac concerns. She does endorse ongoing back pain. Primary team also at bedside discussing pain management plans, and physical therapy Labs, vitals, diagnostics, telemetry and documentation reviewed. Telemetry reviewed showing SR with rates in the 70's. No acute events overnight. There has been no further evidence of VT or polymorphic VT since yesterday morning as documented. EKG obtained this morning SR with PAC. there are markedly abnormal deep T waves anterior-lateral with known prolonged QT interval. QTc today is 571ms Review of Systems Review of Systems: All systems reviewed & are unremarkable except as noted in HPI & below Physical Exam Constitutional: + frail appearing; no acute distress and not ill appearing Neck: normal visual inspection and trachea midline Respiratory: normal respiratory effort; no respiratory distress and no cough Auscultation: + diminished lung sounds (Bilateral bases ); no crackles, no rales, no rhonchi and no wheezes Cardiovascular: Rate/Rhythm: regular rate and regular rhythm (increased ectopy this AM as noted in HPI) Heart Sounds: normal S1, normal S2 and + murmur (+1/6 systolic) Vessels: dorsalis pedis pulses present; no JVD Extremities: no edema Skin: no rashes, warm and dry Psychiatric: Orientation: alert, oriented to person and oriented to place Apperance: appeared stated age Affect: + anxious affect Results & Data Vital Signs (Past 12 Hours) Vital Signs Temp Pulse Resp BP BP Pulse Ox O2 Del Method 10/16/24 07:42 36.8 C 73 18 180/92 H 91 Room Air 10/16/24 05:17 78 22 178/93 H 94 Room Air 10/16/24 02:45 36.3 C L 69 20 167/74 H 92 Room Air 10/15/24 21:36 69 18 185/85 H 96 Room Air Laboratory Results Cardiac Enzymes 10/15/24 10/15/24 Range/Units 10:59 17:17 Troponin I High Sens 202.2 H* D 183.8 H* (0-14) pg/ml Coagulation 10/15/24 Range/Units 15:03 PT 11.6 (9.0-12.0) Seconds APTT 29 (21-31) Seconds CBC 10/15/24 Range/Units 15:03 WBC 7.14 (4.8-10.8) K/ul RBC 3.74 L (4.20-5.40) M/uL Hgb 11.1 L (12.0-16.0) g/dl Hct 33.7 L (37.0-47.0) % Plt Count 371 (130-400) K/uL Neut # (Auto) 5.12 (1.40-6.50) K/uL Lymph # (Auto) 1.12 L (1.20-3.40) K/uL Lamar # (Auto) 0.84 H (0.11-0.59) K/uL Eos # (Auto) 0.00 (0.00-0.50) K/uL Baso # (Auto) 0.02 (0.00-0.20) K/uL Comprehensive Metabolic Panel 10/15/24 10/16/24 Range/Units 17:17 06:07 Sodium 131 L 131 L (136-145) mmol/L Potassium 4.0 D 4.5 (3.5-5.1) mmol/L Chloride 92 L 93 L (98-107) mmol/L Carbon Dioxide 33 H 30 (21-32) mmol/L BUN 21 23 (6-23) mg/dl Creatinine 0.94 0.95 (0.6-1.2) mg/dl Glucose 145 H 116 H (70-99(Fasting)) mg/dl Calcium 8.8 8.7 (8.6-10.3) mg/dl Intake and Output 10/15/24 10/16/24 10/16/24 22:59 06:59 14:59 Intake Total 340 / 785.333 245.333 / 785.333 104.25 / 104.25 Output Total 300 / 300 Balance 340 / 785.333 245.333 / 785.333 -195.75 / -195.75 Intake: IV 100 / 425.333 125.333 / 425.333 104.25 / 104.25 Heparin 26758 Unit/500 ml D5w 125.333 / 125.333 104.25 / 104.25 25,000 units In 500 ml @ 750 UNITS/HR 15 mls/hr IV .Q24H TESHA Rx#:[id number] Magnesium Sulfate / D5w 1 gm In 100 / 100 100 ml @ 50 mls/hr IV ONE ONE Rx#:[id number] Oral 240 / 360 120 / 360 Output: Urine 300 / 300 Other: # Unmeasured Voids 1 # Urine Diapers 1 1 Diagnostic Findings Echocardiogram 10/15/2024 LVEF 60-65% Moderate concentric LVH small sized anteroseptal wall motion abnormality with akinesis of the segments Left atrium moderately dilated. Aortic valve sclerosis without stenosis Moderate MR Mild TR PASP 60mmHG
[2024-10-16] MEDS: METOPROLOL SUCC 50MG EXT REL TAB PO SCH (10:07)
--- NOTE | 2024-10-16 12:42 | Hospitalist Progress Note ---
Date of Service October 16, 2024 Assessment & Plan (1) Acute exacerbation of CHF (congestive heart failure): Plan: 84-year-old female with past medical history significant for hypertension, hypertrophic cardiomyopathy, moderate left ventricular hypertrophy, valvular heart disease, CKD stage III, history of dialysis in 2013 thought to be reaction from valacyclovir, history of anaphylactic shock due NOEL inhibitors, history of stomach tumor s/p resection, dyslipidemia, prediabetes, pulmonary hypertension, peripheral vascular disease, GERD, chronic low back pain, osteoarthritis, osteoporosis, migraine, history of tobacco use, depression, who was admitted in end of August 2024 for mechanical fall and pelvic fracture and she was discharged to rehab on . Currently she is at [facility]. She still having significant pain in the back and radiating to the legs. Saw orthopedics recently for sciatica. On pain medications. Ambulating with walker short distance. She was sent in today to the hospital because of shortness of breath and tachypnea. Her oxygen saturations were in 87% room air and on nasal cannula saturating okay currently. Daughter is in the room. Denies any cough. Denies any fevers. No chest pain. Has constant runny nose. Has some sore throat. Currently no headache. No abdominal pain. Constipated. Micturating okay. No lower extremity edema. Hemodynamics are okay. Acute CHF Presents with shortness of breath CTA chest no PE. New bilateral pleural effusions- likely secondary to CHF Prior Echocardiogram reporting HCM and LVOT gradient with Valsalva. Has moderate aortic regurgitation, mild to moderate mitral regurgitation and mild tricuspid Regurgitation BNP 3140 Received IV Lasix 60 mg in the ER Has been getting 40mg IV Lasix Daily weights and I's and O's Has not had much urine output yet and will continue intravenous Lasix with electrolyte replacement Appreciate cardiology input and recommendation Still remains in positive balance of 614- will continue intravenous Lasix of 40 mg daily Hypertension On metoprolol tartrate, losartan Blood pressure remains on the upper side and her metoprolol tartrate was changed to succinate Will monitor blood pressure Increased troponin- likely stress-induced from CHF and doubt any ACS Possible demand ischemia Initial troponin 413 and repeat is 350 ER spoke with interventional cardiology on-call and currently no heparin recommended for now and monitor Serial cardiac enzymes have been improving Echo showed- LV ejection fraction 60 to 65%, there is moderate concentric LVH, there is a small anteroseptal wall motion abnormality with akinesis of the segments, LA is moderately dilated, aortic valve sclerosis moderate without significant aortic valvular stenosis, moderate mitral regurgitation and moderate tricuspid regurgitation estimated systolic pulmonary pressure is 60 mmHg neck The patient remains free from any cardiac symptoms Has been having frequent short segment of VTpotassium and magnesium were on the lower side and those have been replaced No more episodes of increased ventricular tachycardia Her electrolytes have been normalized Back pain- increasing back pain Ongoing Recent pelvic fracture- conservative management as per Ortho Continue pain medications on steroid taper , couple more days to finish PT OT when stable Pain seems to be increasing and will give as needed Dilaudid intravenously to control for the pain Will ask for pain management evaluation Prolonged QTc- possible torsade Will hold Lexapro and duloxetine for now Avoid QT prolonging drugs Electrolytes have been replaced with appropriate levels of potassium and magnesium are at acceptable limit today CKD stage III Creatinine 0.9 We will monitor Prediabetes Follow HbA1c levels Hyperlipidemia On Zetia and fenofibrate Depression On buspirone Holding Lexapro and duloxetine Hyponatremia SIADH Sodium 132 Sodium level remains stable at 131 today History of alcohol use Seems drinks 2 to 3 glasses of wine Currently coming from jail Will monitor Chronic pain disorder Opiate dependence Continue current pain medications DVT prophylaxis Lovenox Disposition Telemetry Full code. Admission and Anticipated Discharge Date Admission Date: October 14, 2024 Subjective 10/15/2024 The patient was seen and examined in telemetry unit in presence of the family member She has been complaining of severe pain involving the lower back on the left side radiation of pain to the left lower extremity. 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 Review of Systems Review of Systems: All systems reviewed and are unremarkable except as noted below Physical Exam Physical Exam: Lying in bed without any acute distress Constitutional: + ill appearing and + thin Eyes: PERRL, conjunctivae normal, anicteric sclerae ENMT: external ear and nose normal, oropharynx normal Neck: trachea midline, no thyromegaly Respiratory: no respiratory distress Auscultation: + diminished lung sounds and + crackles ( minimal crackles at the bases) Cardiovascular: Rate/Rhythm: + abnormal rate, + abnormal rhythm and not tachycardic Heart Sounds: normal S1, normal S2 and + murmur Extremities: no edema Gastrointestinal (Abdomen): Inspection/Auscultation: normal bowel sounds; abdomen not distended Percussion/Palpation: abdomen soft; abdomen nontender Musculoskeletal: severe back pain without radiation. Has significant osteoarthritic changes involving the hands but no acute arthritis Neurologic: normal touch/pain/proprioception and moves all extremities; no focal motor deficits Lymphatic: no cervical or axillary lymphadenopathy Results & Data Results & Data Vital Signs (Past 12 Hours) Vital Signs Temp Pulse Pulse Pulse Resp BP BP 10/16/24 11:10 36.8 C 66 15 160/67 H 10/16/24 09:10 70 10/16/24 09:10 10/16/24 07:42 36.8 C 73 18 180/92 H 10/16/24 05:17 78 22 178/93 H 10/16/24 02:45 36.3 C L 69 20 167/74 H Pulse Ox O2 Del Method 10/16/24 11:10 93 Room Air 10/16/24 09:10 10/16/24 09:10 Room Air 10/16/24 07:42 91 Room Air 10/16/24 05:17 94 Room Air 10/16/24 02:45 92 Room Air Laboratory Results Short CBC 10/15/24 Range/Units 15:03 WBC 7.14 (4.8-10.8) K/ul Hgb 11.1 L (12.0-16.0) g/dl Hct 33.7 L (37.0-47.0) % Plt Count 371 (130-400) K/uL BMP 10/15/24 10/16/24 17:17 06:07 Sodium 131 L 131 L Potassium 4.0 D 4.5 Chloride 92 L 93 L Carbon Dioxide 33 H 30 BUN 21 23 Creatinine 0.94 0.95 Glucose 145 H 116 H Calcium 8.8 8.7 Medications Administered Current Inpatient Medications Acetaminophen (Acetaminophen 325 Mg Tab) 650 mg PO Q4H PRN PRN Reason: Pain or Fever Stop: 11/14/24 01:10 Artificial Tears (Artificial Tears) 1 drops OPB QID PRN PRN Reason: Dryness Stop: 11/14/24 01:19 Bisacodyl (Bisacodyl 5 Mg Tabec) 10 mg PO DAILY PRN PRN Reason: Constipation Stop: 11/14/24 01:10 Buspirone HCl (Buspirone 15 Mg Tab) 30 mg PO QPM TESHA Stop: 11/14/24 20:59 Last Admin: 10/15/24 20:10 Dose: 30 mg Buspirone HCl (Buspirone 15 Mg Tab) 15 mg PO DAILY TESHA Stop: 11/14/24 08:59 Last Admin: 10/15/24 08:04 Dose: 15 mg Cyclobenzaprine HCl (Cyclobenzaprine Hcl 5 Mg Tab) 5 mg PO TID PRN PRN Reason: Muscle Spasm Stop: 11/14/24 01:10 Last Admin: 10/16/24 07:58 Dose: 5 mg Ezetimibe (Ezetimibe 10 Mg Tab) 10 mg PO HS TESHA Stop: 11/14/24 20:59 Last Admin: 10/15/24 20:08 Dose: 10 mg Famotidine (Famotidine 20 Mg Tab) 20 mg PO HS TESHA Stop: 11/14/24 20:59 Last Admin: 10/15/24 20:13 Dose: 20 mg Folic Acid (Folic Acid 400 Mcg Tab) 400 mcg PO QAM TESHA Stop: 11/14/24 08:59 Last Admin: 10/16/24 07:58 Dose: 400 mcg Furosemide (Furosemide 40 Mg/4 Ml Vial) 40 mg IV DAILY TESHA Stop: 11/14/24 08:59 Last Admin: 10/16/24 08:00 Dose: 40 mg Hydromorphone HCl (Hydromorphone Inj 0.5 Mg/0.5 Ml Syr) 0.5 mg IV Q6H PRN PRN Reason: Pain Stop: 10/29/24 11:56 Heparin Sodium/Dextrose (Heparin 45838 Unit/500 Ml D5w) 25,000 units in 500 mls @ 15 mls/hr IV .Q24H TESHA; Protocol Stop: 11/14/24 14:44 Last Titration: 10/16/24 07:08 Dose: 750 units/hr, 15 mls/hr Lorazepam (Lorazepam 0.5 Mg Tab) 0.5 mg SL HS PRN PRN Reason: Insomnia Stop: 11/14/24 01:10 Last Admin: 10/15/24 10:55 Dose: 0.5 mg Losartan Potassium (Losartan Potassium 50 Mg Tab) 50 mg PO BID [facility] Stop: 11/14/24 08:59 Last Admin: 10/16/24 08:41 Dose: 50 mg Methylprednisolone (Methylprednisolone 4 Mg Tab) 4 mg PO DAILY [facility]; Taper Stop: 10/17/24 08:59 Last Admin: 10/16/24 07:59 Dose: 4 mg Metoprolol Succinate (Metoprolol Succ 50mg Ext Rel Tab) 50 mg PO BID [facility] Stop: 11/15/24 09:59 Last Admin: 10/16/24 10:07 Dose: 50 mg Miscellaneous (Fenofibrate 67mg - Order Awaiting Action) 1 each N/A QS [facility] Stop: 11/14/24 07:59 Last Admin: 10/16/24 08:24 Dose: Not Given Miscellaneous (Omeprazole 40 Mg - Order Awaiting Action) 1 each N/A QS [facility] Stop: 11/14/24 07:59 Last Admin: 10/16/24 08:25 Dose: Not Given Nitroglycerin (Nitroglycerin Sl 0.4 Mg/Tab Tab) 0.4 mg SL Q5M PRN PRN Reason: Chest Pain Stop: 11/14/24 01:10 Oxycodone HCl (Oxycodone Hcl Ir 5 Mg Tab (Immediate Release)) 5 mg PO Q8H PRN PRN Reason: PAIN,MODERATE Stop: 10/29/24 01:10 Last Admin: 10/16/24 00:08 Dose: 5 mg Oxycodone HCl (Oxycodone Hcl 15 Mg Tabcr (Oxycontin)) 15 mg PO BID [facility] Stop: 10/29/24 08:59 Last Admin: 10/16/24 08:09 Dose: 15 mg Polyethylene Glycol (Polyethylene (Miralax) 17 Gm Pack) 17 gm PO DAILY PRN PRN Reason: Constipation Stop: 11/14/24 01:10 Potassium Chloride (Potassium Chloride Crtab 20 Meq Tabcr) 20 meq PO QAM [facility] Stop: 11/15/24 08:59 Last Admin: 10/16/24 08:09 Dose: 20 meq Thiamine HCl (Thiamine Hcl 100 Mg Tab) 100 mg PO QAM [facility] Stop: 11/14/24 08:59 Last Admin: 10/16/24 08:41 Dose: 100 mg Vitamin D (Cholecalciferol 25 Mcg (1000 Units) Tab) 100 mcg PO DAILY [facility] Stop: 11/14/24 08:59 Last Admin: 10/16/24 07:58 Dose: 100 mcg
[2024-10-17 06:34] LABS: ANTI-Xa, UFH(UnfractionatedHep 0.41 IU/ml (0.3-0.7)
[2024-10-17 06:36] LABS: BUN Creatinine Ratio 26.3 (10-20); Calcium 8.9 mg/dl (8.6-10.3); Creatinine Clr Calc Pharmacy 29.5 ml/min; Magnesium 1.8 mg/dl (1.7-2.4); Potassium 4.3 mmol/L (3.5-5.1)
--- NOTE | 2024-10-17 09:02 | Pain Management Consultation ---
Date of Consultation October 17, 2024 Assessment & Plan (1) Pelvic fracture: Encounter type: subsequent encounter Fracture alignment: without disruption of pelvic ring Fracture healing: with delayed healing Fracture type: closed Pelvic bone location: multiple parts Qualified Code(s): S32.82XG - Multiple fractures of pelvis without disruption of pelvic ring, subsequent encounter for fracture with delayed healing (2) AMS (altered mental status): (3) Status post fall: (4) QT prolongation: (5) Chronic pain disorder: Plan 1. Patient's current pain complaint appears to be likely associated with her recently discovered fracture involving the left anterior aspect of the superior pubic ramus extending into the pubic bone as well as a left sacral sanchez extending into the SI joint as she is experiencing axial low back pain left- sided predominantly extending into the left groin which appears to be a likely referral pattern from the SI joint region fracture. Patient is currently utilizing minimal breakthrough pain medications and given her mental status, would not recommend adjusting OxyContin dosing at this time. 2. Will trial some baclofen 10 mg twice daily in an attempt to diminish any associated muscular spasm she is experiencing with movement secondary to the fracture 3. The patient is a poor candidate for any interventional treatment due to her fracture and comorbid medical conditions 4. Patient is a poor candidate for Butrans patch due to her QT prolongation 5. Pain service will sign off on patient at this time. Thank you for allowing us to participate in the care of Mrs. Guerra. History of Present Illness Reason for Consultation: Low back pain extending into the left groin Requesting Physician: Tristan Goncalves MD Attending Physician: Tristan Goncalves MD History of Present Illness Mrs. Guerra is an 84-year-old white female who is well-known to the pain service from prior treatment of chronic thoracic back pain. The patient has a recent history of mechanical fall near the end of August with resultant pelvic fracture and was discharged to rehab on 09/19/2024. The patient was currently residing at [facility] and was readmitted due to persisting complaints of significant pain in the back radiating into the legs bilaterally, but predominantly complaining of pain in the left groin. Patient's fracture is through the left anterior aspect of the superior pubic ramus extending into the pubic bone as well as the left sacral sanchez extending into the SI joint. Patient reports her pain is minimal while low lying supine but exacerbates with movement. She rates her pain a 2/10 at its best and 8/10 at its worst. She describes the pain as aching and episodically sharp. She also describes a general sense of heaviness involving the legs bilaterally. She denies pain radiating below the level of the knee. She denies bowel/bladder incontinence or saddle anesthesia. Patient is currently on OxyContin for grams twice daily, which appears to have been started approximately 2 weeks ago. She has been utilizing Oxy IR for breakthrough pain with moderate efficacy. Patient is denying constipation or abdominal discomfort. Patient is not currently complaining of thoracic region back pain. Patient has no further constitutional complaints. Plan of care discussed with Dr. Karen Padilla. Pain Assessment Full Body Front + Back: 2 1. Axial lumbosacral back pain 2. Pain rating in the left groin/thigh Pain scale - at its best (0-10): 2 Pain scale - at its worst (0-10): 8 Allergies Allergy/AdvReac Type Severity Reaction Status Date / Time aspirin Allergy Severe Hives Verified 07/19/24 13:32 NSAIDS (Non-Steroidal Allergy Severe Anaphylaxis Verified 07/19/24 13:32 Anti-Inflamma NOEL Inhibitors Allergy Unknown HIVES, Verified 07/19/24 13:32 SWELLING OF FACE ibuprofen Allergy Unknown Hives Verified 07/19/24 13:32 pantoprazole Allergy Unknown Unknown Verified 07/19/24 13:32 Vpiovez-UHF-ZnJ Reductase Allergy Unknown "arms and Verified 07/19/24 13:32 Inhibitor legs achy" [Omuioyv-Qbe-Fmc Reductase Inhibitor] pravastatin [From Pravachol] AdvReac Severe liver Verified 07/19/24 13:32 complications gabapentin AdvReac Unknown Edema Verified 07/19/24 13:32 valacyclovir [From Valtrex] AdvReac Unknown Kidneys Verified 07/19/24 13:32 shut down Home Medications Medication Instructions Recorded Confirmed Type ezetimibe 10 mg tablet (Zetia) 10 mg PO HS 06/14/20 10/14/24 History fenofibrate micronized 67 mg 67 mg PO HS 06/14/20 10/14/24 History capsule lorazepam 0.5 mg tablet 0.5 mg sublingual HS PRN Insomnia 06/14/20 10/14/24 History lifitegrast 5 % eye drops in a 1 drp OPB BID 06/19/20 10/14/24 History dropperette (Xiidra) cholecalciferol (vitamin D3) 100 100 mcg PO DAILY 07/16/23 10/14/24 History mcg (4,000 unit) tablet escitalopram oxalate 10 mg tablet 10 mg PO DAILY 07/16/23 10/14/24 History escitalopram oxalate 20 mg tablet 20 mg PO DAILY 07/16/23 10/14/24 History ondansetron 4 mg disintegrating 8 mg PO Q8 PRN nausea 07/16/23 10/14/24 History tablet losartan 50 mg tablet 50 mg PO BID #60 tabs 01/01/24 10/14/24 Rx famotidine 20 mg tablet 20 mg PO HS 09/14/24 10/14/24 History furosemide 20 mg tablet 20 mg PO DAILY PRN Fluid Retention 09/14/24 10/14/24 History Flutter Valve #1 ea 09/19/24 10/14/24 Rx folic acid 400 mcg tablet 400 mcg PO QAM #30 tabs 09/19/24 10/14/24 Rx thiamine HCl (vitamin B1) 100 mg 100 mg PO QAM #30 tabs 09/19/24 10/14/24 Rx tablet acetaminophen 325 mg tablet 650 mg PO Q4 PRN PAIN 1-3 10/14/24 10/14/24 History bisacodyl 5 mg tablet,delayed 10 mg PO DAILY PRN Constipation 10/14/24 10/14/24 History release (Gentle Laxative (bisacodyl)) buspirone 15 mg tablet 15 mg PO DAILY 10/14/24 10/14/24 History buspirone 30 mg tablet 30 mg PO QPM 10/14/24 10/14/24 History cyclobenzaprine 5 mg tablet 5 mg PO TID PRN Muscle Spasm 10/14/24 10/14/24 History duloxetine 30 mg capsule,delayed 30 mg PO QPM 10/14/24 10/14/24 History release methylprednisolone 4 mg tablets in 4 mg PO UD 10/14/24 10/14/24 History a dose pack metoprolol tartrate 25 mg tablet 25 mg PO Q12 10/14/24 10/14/24 History omeprazole 40 mg capsule,delayed 40 mg PO BIDM 10/14/24 10/14/24 History release oxycodone 15 mg tablet,crush 15 mg PO AMHS 10/14/24 10/14/24 History resistant,extended release 12 hr oxycodone 5 mg tablet 5 mg PO Q8H PRN PAIN,MODERATE 10/14/24 10/14/24 History Pain History Pain Intensity Pain scale - at its best (0-10): 2 Pain scale - at its worst (0-10): 8 Patient History Medical History Vitamin D deficiency Mitral regurgitation Aortic stenosis Surgical History History of hysterectomy History of cholecystectomy Family History Other No pertinent family history Social History Smoking Status: Never smoker Second Hand Exposure: No; Do You Dip or Chew Tobacco: No; Tobacco Cessation Education Requested by Patient: No Hx Alcohol Use: Yes Alcohol type: beer and wine Alcohol Intake Frequency Comment: was daily but pt reports cutting back over past few months Hx Substance Use: No Preferred Language: Indonesian Communication Ability: Effective Entry Level Business Analyst Required: No Beliefs That Will Affect Care: None marital status: Unknown Current Living Situation: Alone Current Living Situation Comment: High Rise Apartment Complex Other Information That Helps Us Care for You: No Feels Safe at Home: Yes Safety Concerns: Feels Safe At This Time Assistive Devices: Walker Physical Exam 2 Physical Exam: General: Patient sitting quietly in exam room in no acute distress. Patient appears to have some moderate confusion throughout the visit. Mood and affect appropriate. Cognition intact. Head: Normocephalic and atraumatic. ENT: No evidence of nasal or oral mucosal lesions. Mucous membranes are moist. Eyes: Pupils equal round reactive to light. Neck: Supple without adenopathy and full range of motion. Abdomen: Soft and nondistended. No organomegaly. Bowel sounds active. Back/spine: Patient able to logroll towards her left side for visual inspection and examination. She has no focal midline tenderness to palpation or percussion. She is minimally tender in the lumbar paravertebral location without focal facet joint tenderness. Moderately tender over the left SI joint region and nontender on the right. Lower extremities: SLR is negative bilaterally. Strength testing was 5/5 with dorsiflexion, plantarflexion and 4/5 with hip flexion/extension. There was some increased pain on the left with hip flexion and extension maneuvering. Moderately tender with internal/external rotation of the left hip and nontender on the right. There is no palpable or visible abnormality involving the left groin or inguinal region. Neurologic: Cranial nerves grossly intact. Ambulatory function not witnessed.
--- NOTE | 2024-10-17 09:10 | Cardiology Progress Note ---
Date of Service October 17, 2024 Assessment & Plan (1) Acute exacerbation of CHF (congestive heart failure): (2) Pleural effusion on right: (3) Pleural effusion on left: (4) Elevated troponin: (5) Hypomagnesemia: (6) Hypokalemia: (7) Non-sustained ventricular tachycardia: Plan Assessment: 84 year old female admitted for hypoxia, found to have bilateral pleural effusions, possible UTI and electrolyte imbalances. Cardiology requested for assessment/recommendations. Plan: 1. Acute exacerbation of CHF 2. bilateral pleural effusions 3. Elevated Troponin -patient with history of hypertensive heart disease, mixed valvular disease who presents with shortness of breath and hypoxia. -BNP with modest elevation, Imaging suggestive of bilateral pleural effusions. Responded well to Lasix 60mg IV x1 dose in the ER -Continue Furosemide 40mg IV daily -Troponin elevated in the setting of heart failure; however, will need to check echocardiogram to assess overall structure and function as well as for any new wall motion abnormality because patient is having increased ectopy. Patient remains chest pain free. -Daily weights, and strict I&O are needed. Serum K > 4.0 and Serum Mag > 2.0 -Repeat EKG due to elevated troponin, increase in ectopy and initial study wi th prolonged QT -Continue Lopressor 25mg PO BID, Furosemide 40mg IV daily and Losartan 50mg PO BID as per current HF regimen. -Further recommendations pending echo. 4. Hypomagnesia 5. Hypokalemia 6. Non-sustained VT -magnesium has since been supplemented with recent labs showing serum mag of 2.0 -Patient's potassium currently being supplemented. -Recommend repeat BMP at 1700 today -Close monitoring of labs in the setting of diuresis, possible acute infectious process and also with increased ectopy on Telemetry. -Awaiting echocardiogram to assess for any change in LV function, wall motion abnormalities or valvular disease to suggest any further reason for her elevated troponins, increased ventricular ectopy or HF exacerbation. 10/16/2024: -patient demonstrates clinical improvement from a cardiac perspective. -Discussion with family yesterday, with goals to pursue conservative management -Patient remains chest pain free -No further events on telemetry. Electrolytes are stable. -Primary team is working on pain control for her back pain and most recent pelvic fracture. -Continue Furosemide 40mg IV today. Renal function is stable. Goal serum K > 4.0 and Serum mag > 2.0 -Strict I and O as well as daily weights to assist in monitoring fluid status -Stop Metoprolol tartrate in favor of transitioning to Metoprolol Succinate 50mg PO BID starting this morning. -Continue Heparin gtt for a total of 48 hours given recent troponin elevation and echocardiogram findings 10/17/2024: -Patient resting in bed at time of exam. She endorses dizziness and is noted to have some muscle twitching, but also some increased confusion. -No further events on telemetry -Serum Mag 1.8 today, will give one time IV mag sulfate x1 gm -Serum sodium has dropped. Hold furosemide as patient appears euvolemic, may be a contributing factor for her muscle twitching -Continue with Strict I&O, daily weights and close monitoring of both renal function and electrolytes. -Initial BP elevated this morning. Trended down with AM meds. 110mmHG systolic at time of exam. -Will continue Metoprolol Succinate 50mg PO BID. Heart rates better controlled. -If BP's continue to trend upward throughout the day, would give consideration to starting Amlodipine 5mg PO HS -Continue Heparin gtt, may discontinue in AM -Will continue to follow Case has been discussed with Dr. Rees. Further recommendations regarding plan of care as per his assessment. I spent a total of 30 minutes on the date of service in preparation, delivery, documentation of the care provided to the patient excluding any time spent in the performance of separately billed services. AUREA Rodriguez [facility] Cardiology [facility] Admission and Anticipated Discharge Date Admission Date: October 14, 2024 Supervising Physician Co-Signing Physician Notes Patient seen and personally examined. Full assessment and plan as outlined above by advanced provider. Care and management discussed and personally endorsed Feels dizzy and somewhat foggy this morning. No chest pain or discomfort. No worsening or edema orthopnea. No fevers or chills. No focal abnormalities on exam, jugular venous distention no longer present Mild movement disorders this morning., Muscle twitch Previously on high dose BuSpar on hold question withdrawal Subjective 10/17/2024: Patient seen and examined in follow up today. Feeling fair. Denies any acute cardiac concerns. Denies chest pain, pressure or shortness of breath, no syncope and no edema. Patient states that she is dizzy, and she is noted to have some muscle twitches/jerking movements. Patient is also asking about the process of discharge and people "bringing lots of stuff into my room", clear that she is a bit more confused today. Labs, vitals, diagnostics, telemetry and documentation reviewed. Telemetry reviewed showing SR rates 60-70's no acute events overnight. Review of Systems Review of Systems: All systems reviewed & are unremarkable except as noted in HPI & below Physical Exam Constitutional: + frail appearing; no acute distress and not ill appearing Neck: normal visual inspection and trachea midline Respiratory: normal respiratory effort; no respiratory distress and no cough Auscultation: lungs clear to auscultation bilaterally; no crackles, no rales, no rhonchi and no wheezes Cardiovascular: Rate/Rhythm: regular rate and regular rhythm (increased ectopy this AM as noted in HPI) Heart Sounds: normal S1, normal S2 and + murmur (+1/6 systolic) Vessels: dorsalis pedis pulses present; no JVD Extremities: no edema Skin: no rashes, warm and dry Psychiatric: Orientation: alert, oriented to person and oriented to place Apperance: appeared stated age Affect: + anxious affect Thought Content: + preoccupation increased confusion today and notation of muscle twitching Results & Data Vital Signs (Past 12 Hours) Vital Signs Temp Pulse Pulse Pulse Resp BP BP 10/17/24 07:44 71 10/17/24 07:21 36.3 C L 73 18 189/78 H 10/17/24 03:06 36.4 C L 73 14 180/80 H 10/16/24 22:39 36.4 C L 66 18 158/97 H Pulse Ox O2 Del Method 10/17/24 07:44 10/17/24 07:21 10/17/24 03:06 94 Room Air 10/16/24 22:39 94 Room Air Laboratory Results Comprehensive Metabolic Panel 10/17/24 Range/Units 05:44 Sodium 129 L (136-145) mmol/L Potassium 4.3 (3.5-5.1) mmol/L Chloride 92 L (98-107) mmol/L Carbon Dioxide 29 (21-32) mmol/L BUN 25 H (6-23) mg/dl Creatinine 0.95 (0.6-1.2) mg/dl Glucose 108 H (70-99(Fasting)) mg/dl Calcium 8.9 (8.6-10.3) mg/dl Intake and Output 10/16/24 10/17/24 10/17/24 22:59 06:59 14:59 Intake Total 201.75 / 677.50 151.5 / 677.50 Output Total 150 / 725 Balance 201.75 / -47.50 1.5 / -47.50 Intake: IV 201.75 / 557.50 151.5 / 557.50 Heparin 86685 Unit/500 ml D5w 201.75 / 457.50 151.5 / 457.50 25,000 units In 500 ml @ 750 UNITS/HR 15 mls/hr IV .Q24H [facility] Rx#:[id number] Output: Urine 150 / 725 Other: Other Intake Source Sips # Urine Diapers 1 Weight 44.6 kg Weight Measurement Method Built in [facility]
[2024-10-17] MEDS: BACLOFEN 10 MG TAB PO SCH (09:29)
[2024-10-17] MEDS: MAGNESIUM SULFATE / D5W 1 GM/100 ML BAG IV ONE (11:11)
--- NOTE | 2024-10-17 12:41 | Hospitalist Progress Note ---
Date of Service October 17, 2024 Assessment & Plan (1) Acute exacerbation of CHF (congestive heart failure): Plan: 84-year-old female with past medical history significant for hypertension, hypertrophic cardiomyopathy, moderate left ventricular hypertrophy, valvular heart disease, CKD stage III, history of dialysis in 2013 thought to be reaction from valacyclovir, history of anaphylactic shock due NOEL inhibitors, history of stomach tumor s/p resection, dyslipidemia, prediabetes, pulmonary hypertension, peripheral vascular disease, GERD, chronic low back pain, osteoarthritis, osteoporosis, migraine, history of tobacco use, depression, who was admitted in end of August 2024 for mechanical fall and pelvic fracture and she was discharged to rehab on . Currently she is at [facility]. She still having significant pain in the back and radiating to the legs. Saw orthopedics recently for sciatica. On pain medications. Ambulating with walker short distance. She was sent in today to the hospital because of shortness of breath and tachypnea. Her oxygen saturations were in 87% room air and on nasal cannula saturating okay currently. Daughter is in the room. Denies any cough. Denies any fevers. No chest pain. Has constant runny nose. Has some sore throat. Currently no headache. No abdominal pain. Constipated. Micturating okay. No lower extremity edema. Hemodynamics are okay. Acute CHF Presents with shortness of breath CTA chest no PE. New bilateral pleural effusions- likely secondary to CHF Prior Echocardiogram reporting HCM and LVOT gradient with Valsalva. Has moderate aortic regurgitation, mild to moderate mitral regurgitation and mild tricuspid Regurgitation BNP 3140 Received IV Lasix 60 mg in the ER Has been getting 40mg IV Lasix Daily weights and I's and O's Has not had much urine output yet and will continue intravenous Lasix with electrolyte replacement Appreciate cardiology input and recommendation Still remains in positive balance of 614- will continue intravenous Lasix of 40 mg daily She has been stable from cardiac point of view and noted to have sodium has gone down to 129 Does not seems to be volume overloaded and Lasix will be on hold Will get PT and OT evaluation Remains pleasantly confused Likely secondary to narcotic pain medications Will try to limit the use of narcotics Hyponatremia SIADH Sodium 132 Sodium level remains stable at 131 today Sodium went down to 129 likely secondary to use of diuretics Will monitor. Hypertension On metoprolol tartrate, losartan Blood pressure remains on the upper side and her metoprolol tartrate was changed to succinate Will monitor blood pressure Increased troponin- likely stress-induced from CHF and doubt any ACS Possible demand ischemia Initial troponin 413 and repeat is 350 ER spoke with interventional cardiology on-call and currently no heparin recommended for now and monitor Serial cardiac enzymes have been improving Echo showed- LV ejection fraction 60 to 65%, there is moderate concentric LVH, there is a small anteroseptal wall motion abnormality with akinesis of the segments, LA is moderately dilated, aortic valve sclerosis moderate without significant aortic valvular stenosis, moderate mitral regurgitation and moderate tricuspid regurgitation estimated systolic pulmonary pressure is 60 mmHg neck The patient remains free from any cardiac symptoms Has been having frequent short segment of VTpotassium and magnesium were on the lower side and those have been replaced No more episodes of increased ventricular tachycardia Her electrolytes have been normalized Back pain- increasing back pain Ongoing Recent pelvic fracture- conservative management as per Ortho Continue pain medications on steroid taper , couple more days to finish PT OT when stable Pain seems to be increasing and will give as needed Dilaudid intravenously to control for the pain Will ask for pain management evaluation Appreciate pain therapy input and recommendation Started on antispasmodic to see if that helps Prolonged QTc- possible torsade Will hold Lexapro and duloxetine for now Avoid QT prolonging drugs Electrolytes have been replaced with appropriate levels of potassium and magnesium are at acceptable limit today CKD stage III Creatinine 0.9 We will monitor Prediabetes Follow HbA1c levels Hyperlipidemia On Zetia and fenofibrate Depression On buspirone Holding Lexapro and duloxetine History of alcohol use Seems drinks 2 to 3 glasses of wine Currently coming [facility] Will monitor Chronic pain disorder Opiate dependence Continue current pain medications DVT prophylaxis Lovenox Disposition Telemetry Full code. Admission and Anticipated Discharge Date Admission Date: October 14, 2024 Subjective 10/15/2024 The patient was seen and examined in telemetry unit in presence of the family member She has been complaining of severe pain involving the lower back on the left si de radiation of pain to the left lower extremity. She does not have any problem with urine and bowel habit She denies any chest pain, palpitation or shortness of breath at rest No fever and no chills, no abdominal pain nausea no vomiting 10/16/2024 The patient was seen and examined in telemetry unit She complains of increasing pain in the lower back without radiation She denies any chest pain, palpitation or any increasing shortness of breath Her blood pressure was noted to be high and that will be addressed by the packing floor worker 10/17/2024 The patient was seen and examined in telemetry unit She remains pleasantly confused but does not have any cardiac symptoms Still has significant pain in the lower back She did not have any more. Ventricular tachycardia/ectopy Review of Systems Review of Systems: All systems reviewed and are unremarkable except as noted below Physical Exam Physical Exam: Lying in bed without any acute distress Constitutional: + ill appearing and + thin Eyes: PERRL, conjunctivae normal, anicteric sclerae ENMT: external ear and nose normal, oropharynx normal Neck: trachea midline, no thyromegaly Respiratory: no respiratory distress Auscultation: + diminished lung sounds and + crackles ( minimal crackles at the bases) Cardiovascular: Rate/Rhythm: + abnormal rate, + abnormal rhythm and not tachycardic Heart Sounds: normal S1, normal S2 and + murmur Extremities: no edema Gastrointestinal (Abdomen): Inspection/Auscultation: normal bowel sounds; abdomen not distended Percussion/Palpation: abdomen soft; abdomen nontender Musculoskeletal: No acute arthritis involving any of the joints Neurologic: normal touch/pain/proprioception and moves all extremities; no focal motor deficits Lymphatic: no cervical or axillary lymphadenopathy Results & Data Results & Data Vital Signs (Past 12 Hours) Vital Signs Temp Pulse Pulse Pulse Resp BP BP 10/17/24 10:47 36.5 C 69 18 146/80 H 10/17/24 07:44 71 10/17/24 07:21 36.3 C L 73 18 189/78 H 10/17/24 03:06 36.4 C L 73 14 180/80 H Pulse Ox O2 Del Method 10/17/24 10:47 10/17/24 07:44 10/17/24 07:21 10/17/24 03:06 94 Room Air Laboratory Results BMP 10/17/24 05:44 Sodium 129 L Potassium 4.3 Chloride 92 L Carbon Dioxide 29 BUN 25 H Creatinine 0.95 Glucose 108 H Calcium 8.9 Medications Administered Current Inpatient Medications Acetaminophen (Acetaminophen 325 Mg Tab) 650 mg PO Q4H PRN PRN Reason: Pain or Fever Stop: 11/14/24 01:10 Artificial Tears (Artificial Tears) 1 drops OPB QID PRN PRN Reason: Dryness Stop: 11/14/24 01:19 Baclofen (Baclofen 10 Mg Tab) 10 mg PO BID TESHA Stop: 11/16/24 09:14 Last Admin: 10/17/24 09:29 Dose: 10 mg Bisacodyl (Bisacodyl 5 Mg Tabec) 10 mg PO DAILY PRN PRN Reason: Constipation Stop: 11/14/24 01:10 Buspirone HCl (Buspirone 15 Mg Tab) 30 mg PO QPM TESHA Stop: 11/14/24 20:59 Last Admin: 10/15/24 20:10 Dose: 30 mg Buspirone HCl (Buspirone 15 Mg Tab) 15 mg PO DAILY TESHA Stop: 11/14/24 08:59 Last Admin: 10/15/24 08:04 Dose: 15 mg Ezetimibe (Ezetimibe 10 Mg Tab) 10 mg PO HS [facility] Stop: 11/14/24 20:59 Last Admin: 10/16/24 20:33 Dose: 10 mg Famotidine (Famotidine 20 Mg Tab) 20 mg PO HS TESHA Stop: 11/14/24 20:59 Last Admin: 10/16/24 20:34 Dose: 20 mg Folic Acid (Folic Acid 400 Mcg Tab) 400 mcg PO QAM TES[facility] Stop: 11/14/24 08:59 Last Admin: 10/17/24 07:27 Dose: 400 mcg Furosemide (Furosemide 40 Mg/4 Ml Vial) 40 mg IV DAILY [facility] Stop: 11/14/24 08:59 Last Admin: 10/16/24 08:00 Dose: 40 mg Hydromorphone HCl (Hydromorphone Inj 0.5 Mg/0.5 Ml Syr) 0.5 mg IV Q6H PRN PRN Reason: Pain Stop: 10/29/24 11:56 Heparin Sodium/Dextrose (Heparin 01487 Unit/500 Ml D5w) 25,000 units in 500 mls @ 15 mls/hr IV .Q24H TESHA; Protocol Stop: 11/14/24 14:44 Last Titration: 10/17/24 06:41 Dose: 750 units/hr, 15 mls/hr Magnesium Sulfate/Dextrose (Magnesium Sulfate / D5w) 1 gm in 100 mls @ 50 mls/hr IV ONE ONE Stop: 10/17/24 12:55 Last Admin: 10/17/24 11:11 Dose: 50 mls/hr Lorazepam (Lorazepam 0.5 Mg Tab) 0.5 mg SL HS PRN PRN Reason: Insomnia Stop: 11/14/24 01:10 Last Admin: 10/16/24 13:12 Dose: 0.5 mg Losartan Potassium (Losartan Potassium 50 Mg Tab) 50 mg PO BID TESHA Stop: 11/14/24 08:59 Last Admin: 10/17/24 07:27 Dose: 50 mg Metoprolol Succinate (Metoprolol Succ 50mg Ext Rel Tab) 50 mg PO BID TESHA Stop: 11/15/24 09:59 Last Admin: 10/17/24 07:26 Dose: 50 mg Nitroglycerin (Nitroglycerin Sl 0.4 Mg/Tab Tab) 0.4 mg SL Q5M PRN PRN Reason: Chest Pain Stop: 11/14/24 01:10 Oxycodone HCl (Oxycodone Hcl Ir 5 Mg Tab (Immediate Release)) 5 mg PO Q8H PRN PRN Reason: PAIN,MODERATE Stop: 10/29/24 01:10 Last Admin: 10/16/24 17:54 Dose: 5 mg Oxycodone HCl (Oxycodone Hcl 15 Mg Tabcr (Oxycontin)) 15 mg PO BID [facility] Stop: 10/29/24 08:59 Last Admin: 10/17/24 07:28 Dose: 15 mg Polyethylene Glycol (Polyethylene (Miralax) 17 Gm Pack) 17 gm PO DAILY PRN PRN Reason: Constipation Stop: 11/14/24 01:10 Potassium Chloride (Potassium Chloride Crtab 20 Meq Tabcr) 20 meq PO QAM TESHA Stop: 11/15/24 08:59 Last Admin: 10/17/24 07:25 Dose: 20 meq Thiamine HCl (Thiamine Hcl 100 Mg Tab) 100 mg PO QAM [facility] Stop: 11/14/24 08:59 Last Admin: 10/17/24 07:26 Dose: 100 mg Vitamin D (Cholecalciferol 25 Mcg (1000 Units) Tab) 100 mcg PO DAILY [facility] Stop: 11/14/24 08:59 Last Admin: 10/17/24 07:26 Dose: 100 mcg
[2024-10-17] MEDS: LACTATED RINGER'S 500 ML IV ONE (18:10)
[2024-10-17 18:24] LABS: Base Excess VBG 5.8 mEq/L; HCO3 VBG 31 mmol/L; Oxygen Saturation VBG < 60.0 %; PCO2 VBG 47 mmHg (38-50); PO2 VBG < 20 mmHg; pH VBG 7.43 (7.36-7.41)
--- NOTE | 2024-10-17 18:28 | Communication Note ---
Called to bedside by RN to assess patient. Patient having what appears to akathisia vs. myoclonus jerks, alert and oriented x0 but will occasionally respond to daughter and track. Daughter and friend at bedside, upset regarding patient condition and status. Of note, received baclofen in the morning, has chronic pain syndrome on chronic opioid therapies, also given ativan as well. On other anticholinergics as well. On exam, some nonrhythmic, jerk like motions noted, cachexia, hemodynamically stable, occasionally tracts or says something, moving all 4 extremities, no obvious neurologic deficits. Of note, discussed code status with daughter, who states patient is supposed to be DNRDNI and would not want to suffer/have resuscitation. Order changed in chart to reflect this. Leading differential is polypharmacy in setting of hyperactive delirium and dehydration 2/2 treating decompensated heart failure. Other considerations are electrolyte abnormalities in setting of polypharmacy, CVA c/b hemorrhage (possible), seizures (less likely given patient responsiveness at times but possible), less likely meningitis/bacteremia. Workup included: ct head w/o contrast, extensive lab work including lactic acid/VBG/troponin/electrolytes/BMP/CBC, decreased oxycontin to 10 mg bid and held tonight dose, stopped baclofen, ordered 500 cc bolus ran slowly at 80cc/hr. Updated nuclear physics teacher team regarding need for in person follow up with family and for further updates. Date of Service: October 17, 2024
[2024-10-17 18:40] LABS: Calcium 9.1 mg/dl (8.6-10.3); Magnesium 2.1 mg/dl (1.7-2.4); Potassium 4.7 mmol/L (3.5-5.1)
[2024-10-17 18:46] LABS: BUN Creatinine Ratio 23.1 (10-20); Phosphorus 4.7 mg/dl (2.5-4.9)
[2024-10-17 18:51] LABS: Hematocrit (blood only) 36.2 % (37.0-47.0); Hemoglobin 11.9 g/dl (12.0-16.0); Mean Corpuscular Hemoglobin 29.8 pg (25.0-34.0); Mean Corpuscular Hgb Conc 32.9 g/dL (32.0-36.0); Mean Corpuscular Volume 90.7 fL (80.0-100.0); Mean Platelet Volume 9.2 fL (9.4-12.4); Platelet Count 484 K/uL (130-400); RDW Coefficient of Variation 15.2 % (11.5-14.5); RDW Standard Deviation 50.1 fL (36.4-46.3); Red Blood Count 3.99 M/uL (4.20-5.40)
[2024-10-17 19:10] LABS: Thyroid Stimulating Hormone 4.138 uIu/ml (0.300-4.500); Troponin I High Sensitivity 45.8 pg/ml (0-14)
[2024-10-17] MEDS: LORazepam 0.5 MG TAB SL STA (19:49)
[2024-10-17] MEDS ORDERED: oxyCODONE HCL 10 MG TABCR (OxyCONTIN) PO SCH (21:00)
--- NOTE | 2024-10-17 21:26 | CT Scan Report ---
Exam(s): CT HEAD Without Contrast EXAM: CT Head Without Intravenous Contrast CLINICAL HISTORY: Reason for exam: change in mental status. TECHNIQUE: Axial computed tomography images of the head/brain without intravenous contrast. CTDI is 102.78 mGy and DLP is 1406.31 mGy-cm. Automated exposure control was utilized for the study. A dose lowering technique was utilized adhering to the principles of ALARA. COMPARISON: 12/30/[address] FINDINGS: Artifacts: Images are degraded by motion artifact. Brain: Global parenchymal atrophy. No hemorrhage, extra-axial fluid collection, mass effect, or edema. Ventricles: Unremarkable. Bones/joints: Unremarkable. No fracture. Soft tissues: Unremarkable. Sinuses: No acute sinusitis. Mastoid air cells: Unremarkable as visualized. IMPRESSION: 1. No acute intracranial abnormality. Electronically signed by: Parker De Anda MD 10/17/24 21:26 PM
[2024-10-17] MEDS: clonazePAM 0.25 MG OD TAB PO STA (22:05)
[2024-10-18] MEDS ORDERED: ACETAMINOPHEN 1,000 MG/100 ML VIAL IV STA (00:47)
[2024-10-18] MEDS ORDERED: LORazepam 2 MG/1 ML VIAL IV PRN (00:53)
[2024-10-18] MEDS: ACETAMINOPHEN 10MG/ML Custom 675 MG in EMPTY BAG 0 ML IV ONE (01:33)
[2024-10-18] MEDS ORDERED: hydrALAZINE HCL 20 MG/ML VIAL IV ONE (05:36)
[2024-10-18] MEDS: NITROGLYCERIN 2% OINTMENT 30GM TUBE EXT SCH (06:02)
[2024-10-18 06:26] LABS: ANTI-Xa, UFH(UnfractionatedHep < 0.10 IU/ml (0.3-0.7)
[2024-10-18 06:33] LABS: Calcium 9.3 mg/dl (8.6-10.3); Potassium 4.1 mmol/L (3.5-5.1)
[2024-10-18 06:39] LABS: BUN Creatinine Ratio 23.1 (10-20); Creatinine Clr Calc Pharmacy 30.8 ml/min
--- NOTE | 2024-10-18 08:59 | Cardiology Progress Note ---
Date of Service October 18, 2024 Assessment & Plan (1) Acute exacerbation of CHF (congestive heart failure): (2) Pleural effusion on right: (3) Pleural effusion on left: (4) Elevated troponin: (5) Hypomagnesemia: (6) Hypokalemia: (7) Non-sustained ventricular tachycardia: Plan Assessment: 84 year old female admitted for hypoxia, found to have bilateral pleural effusions, possible UTI and electrolyte imbalances. Cardiology requested for assessment/recommendations. Plan: 1. Acute exacerbation of CHF 2. bilateral pleural effusions 3. Elevated Troponin -patient with history of hypertensive heart disease, mixed valvular disease who presents with shortness of breath and hypoxia. -BNP with modest elevation, Imaging suggestive of bilateral pleural effusions. Responded well to Lasix 60mg IV x1 dose in the ER -Continue Furosemide 40mg IV daily -Troponin elevated in the setting of heart failure; however, will need to check echocardiogram to assess overall structure and function as well as for any new wall motion abnormality because patient is having increased ectopy. Patient remains chest pain free. -Daily weights, and strict I&O are needed. Serum K > 4.0 and Serum Mag > 2.0 -Repeat EKG due to elevated troponin, increase in ectopy and initial study wi th prolonged QT -Continue Lopressor 25mg PO BID, Furosemide 40mg IV daily and Losartan 50mg PO BID as per current HF regimen. -Further recommendations pending echo. 4. Hypomagnesia 5. Hypokalemia 6. Non-sustained VT -magnesium has since been supplemented with recent labs showing serum mag of 2.0 -Patient's potassium currently being supplemented. -Recommend repeat BMP at 1700 today -Close monitoring of labs in the setting of diuresis, possible acute infectious process and also with increased ectopy on Telemetry. -Awaiting echocardiogram to assess for any change in LV function, wall motion abnormalities or valvular disease to suggest any further reason for her elevated troponins, increased ventricular ectopy or HF exacerbation. 10/16/2024: -patient demonstrates clinical improvement from a cardiac perspective. -Discussion with family yesterday, with goals to pursue conservative management -Patient remains chest pain free -No further events on telemetry. Electrolytes are stable. -Primary team is working on pain control for her back pain and most recent pelvic fracture. -Continue Furosemide 40mg IV today. Renal function is stable. Goal serum K > 4.0 and Serum mag > 2.0 -Strict I and O as well as daily weights to assist in monitoring fluid status -Stop Metoprolol tartrate in favor of transitioning to Metoprolol Succinate 50mg PO BID starting this morning. -Continue Heparin gtt for a total of 48 hours given recent troponin elevation and echocardiogram findings 10/17/2024: -Patient resting in bed at time of exam. She endorses dizziness and is noted to have some muscle twitching, but also some increased confusion. -No further events on telemetry -Serum Mag 1.8 today, will give one time IV mag sulfate x1 gm -Serum sodium has dropped. Hold furosemide as patient appears euvolemic, may be a contributing factor for her muscle twitching -Continue with Strict I&O, daily weights and close monitoring of both renal function and electrolytes. -Initial BP elevated this morning. Trended down with AM meds. 110mmHG systolic at time of exam. -Will continue Metoprolol Succinate 50mg PO BID. Heart rates better controlled. -If BP's continue to trend upward throughout the day, would give consideration to starting Amlodipine 5mg PO HS -Continue Heparin gtt, may discontinue in AM -Will continue to follow Case has been discussed with Dr. Rees. Further recommendations regarding plan of care as per his assessment. I spent a total of 30 minutes on the date of service in preparation, delivery, documentation of the care provided to the patient excluding any time spent in the performance of separately billed services. AUREA Rodriguez [facility] Card[facility] Admission and Anticipated Discharge Date Admission Date: October 14, 2024 Subjective 10/18/2024: Patient seen and examined in follow up today. Feeling Labs, vitals, diagnostics, telemetry and documentation reviewed. Telemetry reviewed showing Physical Exam Constitutional: + frail appearing; no acute distress and not ill appearing Neck: normal visual inspection and trachea midline Respiratory: normal respiratory effort; no respiratory distress and no cough Auscultation: lungs clear to auscultation bilaterally and + diminished lung sounds (Bilateral bases ); no crackles, no rales, no rhonchi and no wheezes Cardiovascular: Rate/Rhythm: regular rate and regular rhythm (increased ectopy this AM as noted in HPI) Heart Sounds: normal S1, normal S2 and + murmur (+1/6 systolic) Vessels: dorsalis pedis pulses present; no JVD Extremities: no edema Skin: no rashes, warm and dry Psychiatric: Orientation: alert, oriented to person and oriented to place Apperance: appeared stated age Affect: + anxious affect Thought Content: + preoccupation Results & Data Vital Signs (Past 12 Hours) Vital Signs Temp Pulse Pulse Pulse Resp BP Pulse Ox 10/18/24 07:31 36.6 C 75 16 202/102 H 94 10/18/24 05:36 36.6 C 57 L 20 186/68 H 95 10/18/24 01:08 10/18/24 01:07 80 O2 Del Method 10/18/24 07:31 Room Air 10/18/24 05:36 Room Air 10/18/24 01:08 Room Air 10/18/24 01:07 Laboratory Results Cardiac Enzymes 10/17/24 10/17/24 Range/Units 18:14 20:13 Troponin I High Sens 45.8 H 41.4 H (0-14) pg/ml CBC 10/17/24 Range/Units 18:14 WBC 10.10 (4.8-10.8) K/ul RBC 3.99 L (4.20-5.40) M/uL Hgb 11.9 L (12.0-16.0) g/dl Hct 36.2 L (37.0-47.0) % Plt Count 484 H (130-400) K/uL Comprehensive Metabolic Panel 10/17/24 10/18/24 Range/Units 18:14 05:28 Sodium 130 L 130 L (136-145) mmol/L Potassium 4.7 4.1 (3.5-5.1) mmol/L Chloride 92 L 92 L (98-107) mmol/L Carbon Dioxide 31 28 (21-32) mmol/L BUN 25 H 21 (6-23) mg/dl Creatinine 1.08 0.91 (0.6-1.2) mg/dl Glucose 109 H 100 H (70-99(Fasting)) mg/dl Calcium 9.1 9.3 (8.6-10.3) mg/dl Intake and Output 10/17/24 10/18/24 10/18/24 22:59 06:59 14:59 Intake Total 34.667 / 1315.000 532.833 / 1315.000 Balance 34.667 / 615.000 532.833 / 615.000 Intake: IV 34.667 / 765.000 532.833 / 765.000 ACETAMINOPHEN 10MG/ML Custom 67.5 / 67.5 675 mg In Empty Bag 0 ml @ 270 mls/hr IV ONE ONE Rx#:[id number] Lactated Ringer's 500 ml @ 100 34.667 / 500.000 465.333 / 500.000 mls/hr IV .Q5H ONE Rx#:[id number] Other: Other Intake Source sips # Unmeasured Voids 1 Weight 44.5 kg Weight Measurement Method Built in [facility]
[2024-10-18] MEDS: hydrALAZINE HCL 20 MG/ML VIAL IV PRN (09:21)
[2024-10-18] MEDS: ACETAMINOPHEN 1,000 MG/100 ML VIAL IV PRN (10:25)
[2024-10-18] MEDS: LIDOCAINE 5% 1 PATCH TD SCH (11:10)
[2024-10-18] MEDS: oxyCODONE HCL 10 MG TABCR (OxyCONTIN) PO SCH (11:11)
--- NOTE | 2024-10-18 12:11 | Cardiology Progress Note ---
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 EKG with significant T wave inversion and QT prolongation. Cardiac status appears stable with heart rate and fluid status. Blood pressure still elevated. Would add calcium channel malaika nocturnally to regimen. Underlying mental status issues being addressed possible drug withdrawal Discussed all in detail with daughter. CODE STATUS once again readdressed Admission and Anticipated Discharge Date Admission Date: October 14, 2024 Subjective Patient seen and examined, chart reviewed. Events of past day notable for mental status changes increased blood pressure and myoclonic twitching possible medication issues Currently sleeping , Somnolent but arousable CT of head to evaluate above complaints demonstrated no acute findings Review of Systems Review of Systems: Unobtainable due to cognitive status Physical Exam Constitutional: + thin and + frail appearing Eyes: PERRL, conjunctivae normal, anicteric sclerae Neck: trachea midline, no thyromegaly Respiratory: Auscultation: + diminished lung sounds Cardiovascular: Rate/Rhythm: regular rate and regular rhythm Vessels: no JVD Extremities: no edema Results & Data Vital Signs (Past 12 Hours) Vital Signs Temp Pulse Pulse Pulse Resp BP BP 10/18/24 11:22 36.5 C 64 22 149/86 H 10/18/24 10:32 65 10/18/24 10:32 10/18/24 09:19 197/93 H 10/18/24 07:31 36.6 C 75 16 202/102 H 10/18/24 05:36 36.6 C 57 L 20 186/68 H 10/18/24 01:08 10/18/24 01:07 80 Pulse Ox O2 Del Method 10/18/24 11:22 94 Room Air 10/18/24 10:32 10/18/24 10:32 Room Air 10/18/24 09:19 10/18/24 07:31 94 Room Air 10/18/24 05:36 95 Room Air 10/18/24 01:08 Room Air 10/18/24 01:07 Laboratory Results Laboratory Results - last 24 hr 10/17/24 10/17/24 10/18/24 18:14 20:13 05:28 WBC 10.10 RBC 3.99 L Hgb 11.9 L Hct 36.2 L MCV 90.7 MCH 29.8 MCHC 32.9 RDW Std Deviation 50.1 H RDW Coeff of Cindy 15.2 H Plt Count 484 H MPV 9.2 L Heparin Anti-Xa, Unfract < 0.10 L VBG pH 7.43 H VBG pCO2 47 VBG pO2 < 20 VBG HCO3 31 VBG O2 Saturation < 60.0 VBG Base Excess 5.8 Sodium 130 L 130 L Potassium 4.7 4.1 Chloride 92 L 92 L Carbon Dioxide 31 28 Anion Gap 7 10 BUN 25 H 21 Creatinine 1.08 0.91 Est Cr Clr Drug Dosing 26.0 30.8 eGFR 50.34 61.82 BUN/Creatinine Ratio 23.1 H 23.1 H Glucose 109 H 100 H Lactate 2.8 H* 1.5 Calcium 9.1 9.3 Phosphorus 4.7 Magnesium 2.1 2.0 Troponin I High Sens 45.8 H 41.4 H Vitamin B12 294 Procalcitonin 0.06 TSH 4.138
[2024-10-18] MEDS: bisacodyL 5 MG TABEC PO PRN (12:43)
[2024-10-18] MEDS: busPIRone 5 MG TAB PO SCH (12:43)
--- NOTE | 2024-10-18 13:59 | Pain Management Progress Note ---
Date of Service October 18, 2024 Assessment & Plan (1) Pelvic fracture: Encounter type: subsequent encounter Pelvic bone location: multiple parts Fracture type: closed Fracture alignment: without disruption of pelvic ring Fracture healing: with delayed healing Qualified Code(s): S32.82XG - Multiple fractures of pelvis without disruption of pelvic ring, subsequent encounter for fracture with delayed healing (2) AMS (altered mental status): (3) Status post fall: (4) QT prolongation: (5) Chronic pain disorder: Plan 1. Although patient's current pain complaint appears to be likely associated with her recently discovered fracture involving the left anterior aspect of the superior pubic ramus extending into the pubic bone as well as a left sacral sanchez extending into the SI joint, patient is complaining of axial low back pain left- sided predominantly extending into the left groin which appears to be a likely referral pattern from the SI joint region fracture. Patient also complained of bilateral leg pain with tenderness in the bilateral gluteus holden muscles. Due to patient's cognitive state, she has not received her oxycodone or OxyContin. She did receive 1 dose of 0.5 mg IV Dilaudid which provided some relief. 2. Per patient's family, she was on oxycodone 5 mg 3 times daily at home without any long acting medication. She did receive OxyContin while at [facility] during rehab and also received for OxyContin tablets on 10/13/2024. Recommend continue with oxycodone 5 mg 3 times a day and follow response of pain and cognitive state. Patient does have OxyContin ordered and this can be years if tolerated. 3. Consider restarting BuSpar as patient's last dose was 10/13/2024 and this may be contributing to her altered mental status. 4. Discussed consideration of palliative care consult for establishing goals of care with patient's daughter Cami Feldman. Discussed also with hospitalist team and with Krissy Tejeda from palliative care. They will see the patient and family at bedside. 5. Hold further baclofen as patient had adverse effect yesterday. Patient did have multiple doses of cyclobenzaprine prior to admission and seemed to tolerate well. Could consider cyclobenzaprine 5 mg p.o. twice daily as tolerated for muscle spasm 6. No previous lumbar spine MRI. Patient is complaining of bilateral lower extremity radiculitis. As patient is condition improved, consider lumbar spine MRI to evaluate previous fusion and rule out hardware failure secondary to fall. 7. Prior to this hospitalization, QTc was adequate for Butrans which may be an option for treatment. Currently QTc has improved from the 800s into the 500s. Patient will need to have a sustained QTc of less than 470 ms for consideration of Butrans and patient would also be required to either be supervised or have the ability to monitor symptoms independently. 8. The patient is currently a poor candidate for any interventional treatment due to her fracture and comorbid medical conditions. We would be glad to continue to follow her in the outpatient clinic 9. Last bowel movement 10/13/2024. Due to chronic oxycodone use, discussed bowel regimen with inpatient staff. Will give Dulcolax and MiraLAX daily as needed for bowel movement. 10. Patient should continue with vitamin D supplementation and would follow-up vitamin D levels with goal to maintain levels greater than 80. Thank you for allowing us to participate in the care of Mrs. Guerra. Please feel free to call us with any other questions or concerns. Admission and Anticipated Discharge Date Admission Date: October 14, 2024 Subjective Attending: Dr. Padilla Mrs. Guerra is an 84-year-old female who is followed with the pain clinic since June 2023. The patient has a recent history of mechanical fall near the end of August with resultant pelvic fracture and was discharged to rehab on 09/19/2024. After completing rehabilitation, patient has been residing at [facility] in their assisted living unit. Patient was seen by her surgeon last Wednesday and given a Medrol Dosepak as well as cyclobenzaprine for complaints of back pain with radicular symptoms in the lower extremities. She completed her Medrol Dosepak on Wednesday and started her cyclobenzaprine at dinnertime. She then had cyclobenzaprine at bedtime and again the following morning. Patient was then admitted to the hospital 10/15/2024 for CHF exacerbation. EKG revealed prolonged QTc so Lexapro, duloxetine, buspirone was held. Pain management was then consulted for increasing back pain. Patient was seen and started on baclofen for complaints of muscle spasm and "muscle twitching". After taking the baclofen, patient is reported to have had a change of mental status and was known cognitive. In discussion with hospitalist team as well as cardiology, change of mental status may have been a result of patient's Lexapro, duloxetine, buspirone being held. Buspirone and duloxetine were restarted today at half dose. Patient was seen in her room in with her daughter Cami Feldman present. Patient seems to be more awake today. She can answer simple questions and follow simple commands. She knows her name, , POTUS, where she is, and who is with her. She reports that she has significant pain in her lumbosacral region with radiation into her buttocks and down both legs to her feet. She is able to move all extremities and this does not seem to aggravate her pain. She does have tenderness in the gluteus holden. She reports the pain is worsened with any kind of movement. She is unable to cognitively give me a pain rating on a scale of 0-10. She describes the pain as sharp and stabbing. Patient was just started on liquid diet and has taken some of her oral meds this morning including 5 mg of oxycodone. Patient's fracture is through the left anterior aspect of the superior pubic ramus extending into the pubic bone as well as the left sacral sanchez extending into the SI joint. Last bowel movement was 10/13/2024 which was diarrhea. In discussion with family, patient was on oxycodone 5 mg p.o. 3 times daily at home. Family reports that OxyContin 15 mg AM and at bedtime was started at the hospital. Patient is not currently complaining of thoracic region back pain. Previous injections/surgeries include: * Bilateral T10, T11, T12 radiofrequency ablation 07/19/2024 as well as 2 prior medial branch blocks for diagnostic purposes. * L4-S1 posterior lumbar fusion in [address] scan 09/14/2024 Thoracic spine MRI 08/19/2023 Patient has not had any bowel/bladder incontinence or saddle anesthesia. Patient has no further constitutional complaints. Physical Exam Physical Exam: Review of systems: A total of 10 systems was reviewed and is negative other than as listed in the HPI General: Patient sitting quietly in exam room in no acute distress. Patient appears to have some moderate confusion throughout the visit but it is reportedly better than yesterday. Mood and affect appropriate. Head: Normocephalic and atraumatic. ENT: No evidence of nasal or oral mucosal lesions. Mucous membranes are moist. Neck: Supple. Full range of motion without pain. Back/spine: Patient able to logroll with assistance for visual inspection and examination. She has no focal midline tenderness to palpation or percussion. She is minimally tender in the lumbar paravertebral location without focal facet joint tenderness. Moderately tender over the left SI joint region and nontender on the right. Lower extremities: SLR is negative bilaterally. Patient unable to participate in strength testing. There was some increased pain on the left with hip flexion and extension maneuvering. Moderately tender with internal/external rotation of the left hip and nontender on the right. There is no palpable or visible abnormality involving the left groin or inguinal region. Tender in the bilateral gluteus holden. No reported pain to palpation of lower extremities. Range of motion of lower extremities is intact without increased pain Neurologic: Cranial nerves grossly intact. Gait deferred. Patient follows simple commands. Results (Pain Clinic) Previous Records Review Previous Records: personally reviewed by me
--- NOTE | 2024-10-18 14:35 | Hospitalist Progress Note ---
Date of Service October 18, 2024 Assessment & Plan (1) Acute exacerbation of CHF (congestive heart failure): (2) Non-sustained ventricular tachycardia: (3) Encephalopathy: (4) QT prolongation: Plan: (1) Acute exacerbation of CHF (congestive heart failure): Plan: 84-year-old female with past medical history significant for hypertension, hypertrophic cardiomyopathy, moderate left ventricular hypertrophy, valvular heart disease, CKD stage III, history of dialysis in 2013 thought to be reaction from valacyclovir, history of anaphylactic shock due NOEL inhibitors, history of stomach tumor s/p resection, dyslipidemia, prediabetes, pulmonary hypertension, peripheral vascular disease, GERD, chronic low back pain, osteoarthritis, osteoporosis, migraine, history of tobacco use, depression, who was admitted in end of August 2024 for mechanical fall and pelvic fracture and she was discharged to rehab on . Currently she is at [facility]. She still having significant pain in the back and radiating to the legs. Saw orthopedics recently for sciatica. On pain medications. Ambulating with walker short distance. She was sent in today to the hospital because of shortness of breath and tachypnea. Her oxygen saturations were in 87% room air and on nasal cannula saturating okay currently. Daughter is in the room. Denies any cough. Denies any fevers. No chest pain. Has constant runny nose. Has some sore throat. Currently no headache. No abdominal pain. Constipated. Micturating okay. No lower extremity edema. Hemodynamics are okay. Acute CHF Presents with shortness of breath CTA chest no PE. New bilateral pleural effusions- likely secondary to CHF Prior Echocardiogram reporting HCM and LVOT gradient with Valsalva. Has moderate aortic regurgitation, mild to moderate mitral regurgitation and mild tricuspid Regurgitation BNP 3140 Received IV Lasix 60 mg in the ER Has been getting 40mg IV Lasix Daily weights and I's and O's Has not had much urine output yet and will continue intravenous Lasix with electrolyte replacement Appreciate cardiology input and recommendation Still remains in positive balance of 614- will continue intravenous Lasix of 40 mg daily She has been stable from cardiac point of view and noted to have sodium has gone down to 129 Does not seems to be volume overloaded and Lasix will be on hold Will get PT and OT evaluation Remains pleasantly confused Likely secondary to narcotic pain medications Will try to limit the use of narcotics 10/18 euvolemic at this time Diuretics held Continue to monitor closely Altered mental status secondary to acute metabolic encephalopathy Multifactorial: Possibly from Flexeril and baclofen, possible withdrawal from psych medications including buspirone, duloxetine, escitalopram Further history obtained from patient's daughter Cami at the bedside Confirms patient has been taking oxycodone for several years now, recently changed to oxycodone ER 50 mg twice daily with oxycodone 5 mg 3 times daily as needed; also has been on buspirone, escitalopram, duloxetine for several years for depression; and Ativan 0.5 mg p.o. at bedtime -- baclofen and Flexeril discontinued, listed as allergies notified pain management service to reevaluate patient today given yesterday's events --- Buspirone, escitalopram or duloxetine held on admission secondary to significant QT prolongation Repeat EKG obtained today, QT corrected on the EKG read is 556 discussed with cardiology service, QT corrected likely falsely elevated secondary to T wave inversions Patient may be having withdrawals from psych meds which have been held during admission 4 days ago, will slowly reintroduce patient's chronic psych meds we will start with buspirone 10 mg twice daily, and Cymbalta 20 mg daily restart lorazepam at 0.25 mg p.o. at bedtime for now as per daughter patient has been on the above medications for several years but does not seem to be helping with her depression psychiatry service consulted -- Oxycodone ER decreased to 10 mg twice daily, also on oxycodone 5 mg every 8 hours as needed Hyponatremia SIADH Sodium 132 Sodium level remains stable at 131 today Sodium went down to 129 likely secondary to use of diuretics Will monitor. -- Na stable at 130 Hypertension On metoprolol tartrate, losartan Blood pressure remains on the upper side and her metoprolol tartrate was changed to succinate Will monitor blood pressure will be 2.5 mg p.o. at bedtime added Increased troponin- likely stress-induced from CHF and doubt any ACS Possible demand ischemia Initial troponin 413 and repeat is 350 ER spoke with interventional cardiology on-call and currently no heparin recommended for now and monitor Serial cardiac enzymes have been improving Echo showed- LV ejection fraction 60 to 65%, there is moderate concentric LVH, there is a small anteroseptal wall motion abnormality with akinesis of the segments, LA is moderately dilated, aortic valve sclerosis moderate without significant aortic valvular stenosis, moderate mitral regurgitation and moderate tricuspid regurgitation estimated systolic pulmonary pressure is 60 mmHg neck The patient remains free from any cardiac symptoms Has been having frequent short segment of VTpotassium and magnesium were on the lower side and those have been replaced No more episodes of increased ventricular tachycardia Her electrolytes have been normalized Back pain- increasing back pain Ongoing Recent pelvic fracture- conservative management as per Ortho Continue pain medications on steroid taper , couple more days to finish PT OT when stable Pain seems to be increasing and will give as needed Dilaudid intravenously to control for the pain Will ask for pain management evaluation Appreciate pain therapy input and recommendation Started on antispasmodic to see if that helps -- Pain medication management per above Prolonged QTc -- management per above CKD stage III Creatinine 0.9 stable Prediabetes Follow HbA1c levels Hyperlipidemia On Zetia and fenofibrate Depression Will restart buspirone and duloxetine at lower dose Hold escitalopram for the meantime Psychiatry service consulted for medication management History of alcohol use Seems drinks 2 to 3 glasses of wine Currently coming from retirement -- has not had any alcoholic drink for at least 1 month as per daughter Chronic pain disorder Opiate dependence Continue current pain medications DVT prophylaxis Lovenox Disposition pending discussion held with patient's children-their main goal is for patient to have quality of life at this point Pain management service HEATHER Chandler also had lengthy discussion with patient's family They are agreeable with consulting with palliative care service Return to [facility] after this hospitalization plan of care discussed with patient's children in detail and at length all questions answered they are understanding, agreeable, comfortable with the plan of care Admission and Anticipated Discharge Date Admission Date: October 14, 2024 Subjective Follow-up for CHF, back pain, etc. Events overnight noted Seen at the bedside with patient's children Charlotte in chair at the bedside visiting Patient is seen sleeping but easily awakened, seems to be confused, answers with 1-2 words States she feels okay Not in respiratory distress And no signs of pain patient too drowsy to take pills this morning per cyber [employer] planner of Systems Review of Systems: all noted and negative except for above Physical Exam Physical Exam: General- Drowsy, mostly confused, not in distress,breathing with no effort or accessory muscle use Eyes- anicteric Neck- no JVD Lungs- clear breath sounds bilaterally, no rales/wheezes Heart- normal rate, regular rhythm; no murmurs Abdomen- normal bowel sounds, nondistended, soft, nontender Extremities- no pretibial edema, no calf tenderness Neuro-drowsy, no gross focal neurologic deficits Skin- warm & dry Results & Data Results & Data Vital Signs (Past 12 Hours) Vital Signs Temp Pulse Pulse Pulse Resp BP BP 10/18/24 11:22 36.5 C 64 22 149/86 H 10/18/24 10:32 65 10/18/24 10:32 10/18/24 09:19 197/93 H 10/18/24 07:31 36.6 C 75 16 202/102 H 10/18/24 05:36 36.6 C 57 L 20 186/68 H Pulse Ox O2 Del Method 10/18/24 11:22 94 Room Air 10/18/24 10:32 10/18/24 10:32 Room Air 10/18/24 09:19 10/18/24 07:31 94 Room Air 10/18/24 05:36 95 Room Air all noted and reviewed including below
--- NOTE | 2024-10-18 16:32 | Palliative Care Consultation ---
Date of Consultation October 18, 2024 Assessment & Plan (1) Palliative care by specialist: met with pt's daughters Cami Lorie and Jeni Dempsey at bedside, pt was sleeping comfortably.. Patient has two additional adult sons who are being updated by Cami and Jeni and all are jointly involved in decisions for the pt. Introduced Palliative Medicine and explained our role in advanced care planning, symptom management and navigation through the progression of life limiting disease. Patient and/or family were receptive to palliative services for goals of care discussions. Reviewed we are different from hospice, a home health nurse visiting service. (2) Counseling regarding advanced directives and goals of care: Patient has exhibited current lack of decisional capacity based on the inability to convey understanding of personal PMHx, current medical condition, treatment options nor the risks / benefits of those options, and lack of ability to make decisions based on such knowledge. Hospital does not have written documentation of patient wishes concerning his chosen proxy for medical decisions. Per [place] Xpt244, in absence of written documentation of patient wishes, pt's proxy for medical decisions would be the pt.'s adult children (4) with equal authority. Pt does require a proxy for medical decisions. Both daughters assert that all they are in close contact with pt's sons who are aware and in agreement with current plan of care. Spent 35 minutes discussing pt's quality of life and goals/values. Cami expressed that just two days prior to this admission pt was walking and mostly independent with ADLs in assisted living. She shared that prior to the hip fracture, patient was clear of mind and even still driving. Both daughters expressed hope that the pt might continue to recover cognitively enough to participate with PT/OT and return to her prior level of health/function. They shared that they and their brothers have been discussing "future plans" and have decided that at this point they would not want any further "aggressive measures" and want to "focus on just comfort and not prolong life" but they are not ready for hospice care. We discussed current level of care and both daughters (who are RNs) asked for no further escalation of care. They stated that they are still hopeful that PT evaluation will deem her eligible for IPR or SNF with PT to optimize strength and give more time to assess what pt's new baseline level of function. They remain hopeful that pt may return to assisted living environment, but Cami shared that they have all been discussing transition to hospice with [facility] hospice team at SNF if pt declines further. Plan No escalation of care at this time. Family is hopeful that pt may be eligible for and benefit from IPR to optimize strength and independence enough to return to [facility] living for hospice care. Family is clear that goals is to maximize quality of life over length of life. History of Present Illness Reason for Consultation: goals of care Requesting Physician: Adama Henderson MD Attending Physician: Adama Henderson MD History of Present Illness Ms Guerra is a 84y female with past medical history significant for hypertension, hypertrophic cardiomyopathy, moderate left ventricular hypertrophy, valvular heart disease, CKD stage III, history of dialysis in 2012 thought to be reaction from valacyclovir, anaphylactic shock due NOEL inhibitors, stomach tumor s/p resection, dyslipidemia, prediabetes, pulmonary hypertension, peripheral vascular disease, GERD, chronic low back pain, osteoarthritis, osteoporosis, migraine, tobacco use, depression, who was admitted in end of August 2024 for mechanical fall and pelvic fracture and she was discharged to rehab on 09/19/24 and subsequently to [facility]. She still having significant pain in the back and radiating to the legs. Saw orthopedics recently for sciatica. On pain medications. Ambulating with walker short distance. She was sent i to the ED on 10/14/24 because of shortness of breath and tachypnea. Allergies Allergy/AdvReac Type Severity Reaction Status Date / Time aspirin Allergy Severe Hives Verified 07/19/24 13:32 NSAIDS (Non-Steroidal Allergy Severe Anaphylaxis Verified 07/19/24 13:32 Anti-Inflamma NOEL Inhibitors Allergy Unknown HIVES, Verified 07/19/24 13:32 SWELLING OF FACE ibuprofen Allergy Unknown Hives Verified 07/19/24 13:32 pantoprazole Allergy Unknown Unknown Verified 07/19/24 13:32 Pomghgh-FCF-OcD Reductase Allergy Unknown "arms and Verified 07/19/24 13:32 Inhibitor legs achy" [Nbnzxsm-Snp-Qhn Reductase Inhibitor] pravastatin [From Pravachol] AdvReac Severe liver Verified 07/19/24 13:32 complications gabapentin AdvReac Unknown Edema Verified 07/19/24 13:32 valacyclovir [From Valtrex] AdvReac Unknown Kidneys Verified 07/19/24 13:32 shut down baclofen AdvReac Severe severe Uncoded 10/18/24 09:45 muscle twitching, altered mental status flexeril AdvReac Severe severe Uncoded 10/18/24 09:45 muschel twitching, altered mental status Home Medications Medication Instructions Recorded Confirmed Type ezetimibe 10 mg tablet (Zetia) 10 mg PO HS 06/14/20 10/14/24 History fenofibrate micronized 67 mg 67 mg PO HS 06/14/20 10/14/24 History capsule lorazepam 0.5 mg tablet 0.5 mg sublingual HS PRN Insomnia 06/14/20 10/14/24 History lifitegrast 5 % eye drops in a 1 drp OPB BID 06/19/20 10/14/24 History dropperette (Xiidra) cholecalciferol (vitamin D3) 100 100 mcg PO DAILY 07/16/23 10/14/24 History mcg (4,000 unit) tablet escitalopram oxalate 10 mg tablet 10 mg PO DAILY 07/16/23 10/14/24 History escitalopram oxalate 20 mg tablet 20 mg PO DAILY 07/16/23 10/14/24 History ondansetron 4 mg disintegrating 8 mg PO Q8 PRN nausea 07/16/23 10/14/24 History tablet losartan 50 mg tablet 50 mg PO BID #60 tabs 01/01/24 10/14/24 Rx famotidine 20 mg tablet 20 mg PO HS 09/14/24 10/14/24 History furosemide 20 mg tablet 20 mg PO DAILY PRN Fluid Retention 09/14/24 10/14/24 History Flutter Valve #1 ea 09/19/24 10/14/24 Rx folic acid 400 mcg tablet 400 mcg PO QAM #30 tabs 09/19/24 10/14/24 Rx thiamine HCl (vitamin B1) 100 mg 100 mg PO QAM #30 tabs 09/19/24 10/14/24 Rx tablet acetaminophen 325 mg tablet 650 mg PO Q4 PRN PAIN 1-3 10/14/24 10/14/24 History bisacodyl 5 mg tablet,delayed 10 mg PO DAILY PRN Constipation 10/14/24 10/14/24 History release (Gentle Laxative (bisacodyl)) buspirone 15 mg tablet 15 mg PO DAILY 10/14/24 10/14/24 History buspirone 30 mg tablet 30 mg PO QPM 10/14/24 10/14/24 History cyclobenzaprine 5 mg tablet 5 mg PO TID PRN Muscle Spasm 10/14/24 10/14/24 History duloxetine 30 mg capsule,delayed 30 mg PO QPM 10/14/24 10/14/24 History release methylprednisolone 4 mg tablets in 4 mg PO UD 10/14/24 10/14/24 History a dose pack metoprolol tartrate 25 mg tablet 25 mg PO Q12 10/14/24 10/14/24 History omeprazole 40 mg capsule,delayed 40 mg PO BIDM 10/14/24 10/14/24 History release oxycodone 15 mg tablet,crush 15 mg PO AMHS 10/14/24 10/14/24 History resistant,extended release 12 hr oxycodone 5 mg tablet 5 mg PO Q8H PRN PAIN,MODERATE 10/14/24 10/14/24 History Patient History Medical History Vitamin D deficiency Mitral regurgitation Aortic stenosis Surgical History History of hysterectomy History of cholecystectomy Family History Other No pertinent family history Social History Smoking Status: Never smoker Second Hand Exposure: No; Do You Dip or Chew Tobacco: No; Tobacco Cessation Education Requested by Patient: No Hx Alcohol Use: Yes Alcohol type: beer and wine Alcohol Intake Frequency Comment: was daily but pt reports cutting back over past few months Hx Substance Use: No Preferred Language: Greek Communication Ability: Effective Decorative Cutting Machine Tender Required: No Beliefs That Will Affect Care: None marital status: Unknown Current Living Situation: Alone Current Living Situation Comment: High Rise Apartment Complex Other Information That Helps Us Care for You: No Feels Safe at Home: Yes Safety Concerns: Feels Safe At This Time Assistive Devices: Walker Review of Systems Review of Systems: Unobtainable due to cognitive status Physical Exam Constitutional: WD/WN, vitals as above Eyes: PERRL, conjunctivae normal, anicteric sclerae ENMT: external ear and nose normal, oropharynx normal Neck: trachea midline, no thyromegaly Respiratory: normal respiratory effort; no respiratory distress Auscultation: + crackles Cardiovascular: RRR, no murmur, no edema Gastrointestinal (Abdomen): normal bowel sounds, soft, nontender, no hepatosplenomegaly Musculoskeletal: no cyanosis or clubbing, extremities motor strength 5/5 Skin: no rashes, warm and dry Results & Data Vital Signs (Past 12 Hours) Vital Signs Temp Pulse Pulse Pulse Resp BP BP 10/18/24 15:03 63 10/18/24 14:54 36.8 C 68 16 163/72 H 10/18/24 11:22 36.5 C 64 22 149/86 H 10/18/24 10:32 65 10/18/24 10:32 10/18/24 09:19 197/93 H 10/18/24 07:31 36.6 C 75 16 202/102 H 10/18/24 05:36 36.6 C 57 L 20 186/68 H Pulse Ox O2 Del Method 10/18/24 15:03 10/18/24 14:54 94 Room Air 10/18/24 11:22 94 Room Air 10/18/24 10:32 10/18/24 10:32 Room Air 10/18/24 09:19 10/18/24 07:31 94 Room Air 10/18/24 05:36 95 Room Air Laboratory Results Abnormal lab results 10/17/24 10/17/24 10/18/24 Range/Units 18:14 20:13 05:28 RBC 3.99 L (4.20-5.40) M/uL Hgb 11.9 L (12.0-16.0) g/dl Hct 36.2 L (37.0-47.0) % RDW Std Deviation 50.1 H (36.4-46.3) fL RDW Coeff of Cindy 15.2 H (11.5-14.5) % Plt Count 484 H (130-400) K/uL MPV 9.2 L (9.4-12.4) fL Heparin Anti-Xa, Unfract < 0.10 L (0.3-0.7) IU/ml VBG pH 7.43 H (7.36-7.41) Sodium 130 L 130 L (136-145) mmol/L Chloride 92 L 92 L (98-107) mmol/L BUN 25 H (6-23) mg/dl BUN/Creatinine Ratio 23.1 H 23.1 H (10-20) Glucose 109 H 100 H (70-99(Fasting)) mg/dl Lactate 2.8 H* (0.4-2.0) mmol/L Troponin I High Sens 45.8 H 41.4 H (0-14) pg/ml Diagnostic Findings Chest X-Ray 10/14/24 18:15 Clinical History: Dyspnea Technique: A frontal view of the chest was obtained Comparison is made to the prior examination dated 09/15/2024 Findings: There is worsened right lung base opacity, concerning for pneumonia. The heart is mildly enlarged. There is mild pulmonary edema. No definite pneumothorax is seen. There are suspected small bilateral pleural effusions No fracture is noted. No foreign body is seen Impression: 1. Small bilateral pleural effusions 2. Cardiomegaly and mild pulmonary edema 3. Possible right lower lobe pneumonia ACT 112: Positive. There are findings on this exam that require communication between the performing entity and the patient following Patient Test Result Information Act ([place] ACT 112) guidelines. Electronically signed by Migue Friedman 10-14-2024 6:41 PM Chest CTA 10/14/24 18:50 Clinical history: Dyspnea Technique: Axial computed tomography images were obtained of the chest after the administration of intravenous contrast according to the CT angiogram protocol Comparison is made to the prior CT dated 09/16/2024 Findings: There is no definite sign of pulmonary embolism. There is mild emphysema. There are new bilateral small to moderate sized pleural effusions. There is mild bilateral lower lobe atelectasis. There is no definite sign of pneumonia. There is no pneumothorax. There is no sign of pulmonary fibrosis or other diffuse interstitial process. No endobronchial lesion is seen There is no mediastinal, hilar, or axillary adenopathy. The thoracic aorta appears unremarkable with no sign of aneurysm or dissection. There is no pericardial effusion. There is coronary atherosclerosis The visualized upper abdomen appears unremarkable. There are multiple old left rib fractures. No focal osseous lesion is evident Impression: 1. No definite sign of pulmonary embolism 2. New bilateral pleural effusions 3. Mild emphysema 4. Coronary atherosclerosis Electronically signed by Migue Friedman 10-14-2024 7:[address] 10/17/24 17:47 Exam(s): CT HEAD Without Contrast EXAM: CT Head Without Intravenous Contrast CLINICAL HISTORY: Reason for exam: change in mental status. TECHNIQUE: Axial computed tomography images of the head/brain without intravenous contrast. CTDI is 102.78 mGy and DLP is 1406.31 mGy-cm. Automated exposure control was utilized for the study. A dose lowering technique was utilized adhering to the principles of ALARA. COMPARISON: 12/30/[address] FINDINGS: Artifacts: Images are degraded by motion artifact. Brain: Global parenchymal atrophy. No hemorrhage, extra-axial fluid collection, mass effect, or edema. Ventricles: Unremarkable. Bones/joints: Unremarkable. No fracture. Soft tissues: Unremarkable. Sinuses: No acute sinusitis. Mastoid air cells: Unremarkable as visualized. IMPRESSION: 1. No acute intracranial abnormality. Electronically signed by: Parker De Anda MD 10/17/24 21:26 PM Medications Administered Current Inpatient Medications Acetaminophen (Acetaminophen 325 Mg Tab) 650 mg PO Q4H PRN PRN Reason: Pain or Fever Stop: 11/14/24 01:10 Amlodipine Besylate (Amlodipine Besylate 5 Mg Tab) 2.5 mg PO HS TESHA Stop: 11/17/24 20:59 Artificial Tears (Artificial Tears) 1 drops OPB QID PRN PRN Reason: Dryness Stop: 11/14/24 01:19 Bisacodyl (Bisacodyl 5 Mg Tabec) 10 mg PO DAILY PRN PRN Reason: Constipation Stop: 11/14/24 01:10 Last Admin: 10/18/24 12:43 Dose: 10 mg Buspirone HCl (Buspirone 5 Mg Tab) 10 mg PO BID TESHA Stop: 11/17/24 12:14 Last Admin: 10/18/24 12:43 Dose: 10 mg Duloxetine HCl (Duloxetine Hcl 20 Mg Cap) 20 mg PO HS TESHA Stop: 11/17/24 20:59 Ezetimibe (Ezetimibe 10 Mg Tab) 10 mg PO HS TESHA Stop: 11/14/24 20:59 Last Admin: 10/17/24 21:48 Dose: Not Given Famotidine (Famotidine 20 Mg Tab) 20 mg PO HS TESHA Stop: 11/14/24 20:59 Last Admin: 10/17/24 21:49 Dose: Not Given Folic Acid (Folic Acid 400 Mcg Tab) 400 mcg PO QAM [facility] Stop: 11/14/24 08:59 Last Admin: 10/18/24 12:20 Dose: 400 mcg Hydralazine HCl (Hydralazine Hcl 20 Mg/Ml Vial) 5 mg IV Q6H PRN PRN Reason: systolic bp > 160 Stop: 11/17/24 08:29 Last Admin: 10/18/24 09:21 Dose: 5 mg Acetaminophen (Ofirmev) 1,000 mg in 100 mls @ 400 mls/hr IV Q8H PRN PRN Reason: Pain Stop: 10/21/24 09:44 Last Infusion: 10/18/24 10:53 Dose: Infused Lidocaine (Lidocaine 5% 1 Patch) [facility] Stop: 11/17/24 09:59 Last Admin: 10/18/24 11:10 Dose: 1 patch Lorazepam (Lorazepam 0.5 Mg Tab) 0.25 mg SL HS PRN PRN Reason: Insomnia, Anxiety Stop: 11/17/24 14:34 Losartan Potassium (Losartan Potassium 50 Mg Tab) 50 mg PO BID [facility] Stop: 11/14/24 08:59 Last Admin: 10/18/24 11:11 Dose: 50 mg Metoprolol Succinate (Metoprolol Succ 50mg Ext Rel Tab) 50 mg PO BID [facility] Stop: 11/15/24 09:59 Last Admin: 10/18/24 11:11 Dose: 50 mg Miscellaneous (Remove Lidoderm Patch) 1 each N/A DAILY@2100 [facility] Stop: 11/17/24 20:59 Nitroglycerin (Nitroglycerin Sl 0.4 Mg/Tab Tab) 0.4 mg SL Q5M PRN PRN Reason: Chest Pain Stop: 11/14/24 01:10 Oxycodone HCl (Oxycodone Hcl Ir 5 Mg Tab (Immediate Release)) 5 mg PO Q8H PRN PRN Reason: PAIN,MODERATE Stop: 10/29/24 01:10 Last Admin: 10/18/24 11:15 Dose: 5 mg Oxycodone HCl (Oxycodone Hcl 10 Mg Tabcr (Oxycontin)) 10 mg PO BID [facility] Stop: 11/01/24 07:59 Last Admin: 10/18/24 11:11 Dose: Not Given Polyethylene Glycol (Polyethylene (Miralax) 17 Gm Pack) 17 gm PO DAILY PRN PRN Reason: Constipation Stop: 11/14/24 01:10 Potassium Chloride (Potassium Chloride Crtab 20 Meq Tabcr) 20 meq PO QAM [facility] Stop: 11/15/24 08:59 Last Admin: 10/18/24 15:31 Dose: Not Given Thiamine HCl (Thiamine Hcl 100 Mg Tab) 100 mg PO QAM [facility] Stop: 11/14/24 08:59 Last Admin: 10/18/24 12:21 Dose: 100 mg Vitamin D (Cholecalciferol 25 Mcg (1000 Units) Tab) 100 mcg PO DAILY [facility] Stop: 11/14/24 08:59 Last Admin: 10/18/24 12:19 Dose: 100 mcg PG Care Time/CCT Total # of Minutes Spent Total Time Spent with Patient: Total time spent is greater than 50% in coordination of care (as documented) at patient's floor/unit and/or counseling patient: Advanced Care Planning 63372 Advanced Care Planning 30 [place] [address] INT INP/OBS CARE 2/55MIN Patient Type New History Expanded Problem Focused Exam Expanded Problem Focused Medical Decision Making Moderate Complexity Diagnoses Palliative care by specialist Z51.5 Counseling regarding advanced directives and goals of care Z71.89 Additional Codes Advanced Care Planning - 37416 Advanced Care Planning 30 Min: 54548 Advanced Care Planning 30 Min ([id number])
[2024-10-18] MEDS: LORazepam 0.5 MG TAB SL PRN (20:46)
[2024-10-18] MEDS: amLODIPine BESYLATE 5 MG TAB PO SCH (20:48)
[2024-10-18] MEDS: DULoxetine HCL 20 MG CAP PO SCH (20:48)
--- NOTE | 2024-10-18 22:09 | Electrocardiogram Report ---
Test Reason : Blood Pressure : */* mmHG Vent. Rate : 67 BPM Atrial Rate : 67 BPM P-R Int : 128 ms QRS Dur : 88 ms QT Int : 648 ms P-R-T Axes : 71 2 52 degrees QTcB Int : 685 ms Normal sinus rhythm Minimal voltage criteria for LVH, may be normal variant ( Sokolow-Sherwood ) T wave abnormality, consider anterior ischemia Prolonged QT Abnormal ECG When compared with ECG of 15-Oct-2024 08:51, Premature ventricular complexes are no longer Present Confirmed by Bin Rodriguez ([id number]) on 10/18/2024 10:09:06 PM Referred By: REFERRED SELF Confirmed By: Bin Rodriguez
--- NOTE | 2024-10-18 22:11 | Electrocardiogram Report ---
Test Reason : Blood Pressure : */* mmHG Vent. Rate : 71 BPM Atrial Rate : 71 BPM P-R Int : 106 ms QRS Dur : 82 ms QT Int : 540 ms P-R-T Axes : 41 -20 81 degrees QTcB Int : 587 ms Poor data quality, interpretation may be adversely affected Sinus rhythm with Premature atrial complexes with Aberrant conduction Possible Left atrial enlargement Left ventricular hypertrophy ( R in aVL , Sokolow-Sherwood ) Cannot rule out Septal infarct , age undetermined Prolonged QT Abnormal ECG When compared with ECG of 15-Oct-2024 14:21, Aberrant conduction is now Present Confirmed by Bin Rodriguez ([id number] on 10/18/2024 10:11:32 PM Referred By: REFERRED SELF Confirmed By: Bin Rodriguez
[2024-10-19 09:58] LABS: Basophils # (auto) 0.04 K/uL (0.00-0.20); Basophils % (auto) 0.5 %; Eosinophils # (auto) 0.09 K/uL (0.00-0.50); Eosinophils % (auto) 1.1 %; Immature Granulocytes # (auto) 0.03 K/uL (0.01-0.20); Immature Granulocytes % (auto) 0.4 %; Lymphocytes # (auto) 1.14 K/uL (1.20-3.40); Lymphocytes % (auto) 14.5 %; Mean Corpuscular Hemoglobin 30.2 pg (25.0-34.0); Mean Corpuscular Hgb Conc 33.3 g/dL (32.0-36.0); Mean Corpuscular Volume 90.7 fL (80.0-100.0); Mean Platelet Volume 8.9 fL (9.4-12.4); Monocytes # (auto) 0.81 K/uL (0.11-0.59); Monocytes % (auto) 10.3 %; Neutrophils # (auto) 5.75 K/uL (1.40-6.50); Neutrophils % (auto) 73.2 %; Platelet Count 430 K/uL (130-400); RDW Coefficient of Variation 15.2 % (11.5-14.5); RDW Standard Deviation 50.4 fL (36.4-46.3); Red Blood Count 3.97 M/uL (4.20-5.40); White Blood Count 7.86 K/ul (4.8-10.8)
[2024-10-19 10:13] LABS: BUN Creatinine Ratio 23.9 (10-20); Calcium 8.5 mg/dl (8.6-10.3); Creatinine Clr Calc Pharmacy 30.3 ml/min; Potassium 3.7 mmol/L (3.5-5.1)
--- NOTE | 2024-10-19 10:22 | Cardiology Progress Note ---
Date of Service October 19, 2024 Assessment & Plan (1) Acute exacerbation of CHF (congestive heart failure): (2) Pleural effusion on right: (3) Pleural effusion on left: (4) Elevated troponin: (5) Hypomagnesemia: (6) Hypokalemia: (7) Non-sustained ventricular tachycardia: Plan 84-year-old female admitted with acute heart failure prompted by severe pain hypertension and likely stress mediated cardiomyopathy with marked metabolic derangements. EKG with significant T wave inversion and QT prolongation. Cardiac status appears stable with heart rate and fluid status. Blood pressure still elevated. Would add calcium channel malaika nocturnally to regimen. Underlying mental status issues being addressed possible drug withdrawal Discussed all in detail with daughter. CODE STATUS once again readdressed 10/19/2024 Complex 84-year-old female presenting with severe pain acute heart failure marked hypertension and likely stress mediated cardiomyopathy. Clinically improved after likely drug withdrawal concerns addressed. Heart rate and blood pressure returning better control no signs of heart failure. Recommendations: Increase nightly dosing of amlodipine to 5 mg continue current dosing of metoprolol succinate and losartan. Limited echo in a.m. and EKG in a.m. Continue pain control Admission and Anticipated Discharge Date Admission Date: October 14, 2024 Subjective Patient was seen and examined, chart, medications, telemetry reviewed. Patient appears substantially brighter than day prior awake answering questions. Pain under better control. Tonic-clonic twitching has resolved. No chest pain or shortness of breath no edema. Blood pressure improved heart rate controlled. Review of Systems Review of Systems: All systems reviewed & are unremarkable except as noted in Subjective Physical Exam Constitutional: + thin and + frail appearing; no acute d istress Eyes: PERRL, conjunctivae normal, anicteric sclerae Neck: trachea midline, no thyromegaly Respiratory: Auscultation: + diminished lung sounds Cardiovascular: Rate/Rhythm: regular rate and regular rhythm Heart Sounds: + murmur (Grade 2 over 6 systolic ejection murmur) Vessels: no JVD Extremities: no edema Gastrointestinal (Abdomen): normal bowel sounds, soft, nontender, no hepatosplenomegaly Results & Data Vital Signs (Past 12 Hours) Vital Signs Temp Pulse Pulse Resp BP Pulse Ox O2 Del Method 10/19/24 09:48 67 10/19/24 07:22 36.4 C L 72 18 155/58 H 94 Room Air 10/19/24 03:24 36.5 C 54 L 16 146/70 H 93 Room Air 10/18/24 23:29 69 10/18/24 23:12 36.6 C 67 16 122/62 93 Room Air Laboratory Results Laboratory Results - last 24 hr 10/19/24 09:36 WBC 7.86 RBC 3.97 L Hgb 12.0 Hct 36.0 L MCV 90.7 MCH 30.2 MCHC 33.3 RDW Std Deviation 50.4 H RDW Coeff of Cindy 15.2 H Plt Count 430 H MPV 8.9 L Immature Gran % (Auto) 0.4 Neut % (Auto) 73.2 Lymph % (Auto) 14.5 Dale % (Auto) 10.3 Eos % (Auto) 1.1 Baso % (Auto) 0.5 Neut # (Auto) 5.75 Lymph # (Auto) 1.14 L Dale # (Auto) 0.81 H Eos # (Auto) 0.09 Baso # (Auto) 0.04 Immature Gran # (Auto) 0.03 Sodium 131 L Potassium 3.7 Chloride 96 L Carbon Dioxide 29 Anion Gap 6 BUN 22 Creatinine 0.92 Est Cr Clr Drug Dosing 30.3 eGFR 61.02 BUN/Creatinine Ratio 23.9 H Glucose 116 H Calcium 8.5 L
[2024-10-19] MEDS: POLYETHYLENE (MIRALAX) 17 GM PACK PO SCH (10:33)
[2024-10-19] MEDS ORDERED: Nursing to Pharmacy Communication SCH ×2 (10:45→18:30)
[2024-10-19] MEDS: Nursing to Pharmacy Communication SCH (12:56)
--- NOTE | 2024-10-19 17:29 | Hospitalist Progress Note ---
Date of Service October 19, 2024 Assessment & Plan (1) Acute exacerbation of CHF (congestive heart failure): (2) Non-sustained ventricular tachycardia: (3) Encephalopathy: (4) QT prolongation: Plan: (1) Acute exacerbation of CHF (congestive heart failure): Plan: 84-year-old female with past medical history significant for hypertension, hypertrophic cardiomyopathy, moderate left ventricular hypertrophy, valvular heart disease, CKD stage III, history of dialysis in 2013 thought to be reaction from valacyclovir, history of anaphylactic shock due NOEL inhibitors, history of stomach tumor s/p resection, dyslipidemia, prediabetes, pulmonary hypertension, peripheral vascular disease, GERD, chronic low back pain, osteoarthritis, osteoporosis, migraine, history of tobacco use, depression, who was admitted in end of August 2024 for mechanical fall and pelvic fracture and she was discharged to rehab on . Currently she is at [facility]. She still having significant pain in the back and radiating to the legs. Saw orthopedics recently for sciatica. On pain medications. Ambulating with walker short distance. She was sent in today to the hospital because of shortness of breath and tachypnea. Her oxygen saturations were in 87% room air and on nasal cannula saturating okay currently. Daughter is in the room. Denies any cough. Denies any fevers. No chest pain. Has constant runny nose. Has some sore throat. Currently no headache. No abdominal pain. Constipated. Micturating okay. No lower extremity edema. Hemodynamics are okay. Acute CHF Presents with shortness of breath CTA chest no PE. New bilateral pleural effusions- likely secondary to CHF Prior Echocardiogram reporting HCM and LVOT gradient with Valsalva. Has moderate aortic regurgitation, mild to moderate mitral regurgitation and mild tricuspid Regurgitation BNP 3140 Received IV Lasix 60 mg in the ER Has been getting 40mg IV Lasix Daily weights and I's and O's Has not had much urine output yet and will continue intravenous Lasix with electrolyte replacement Appreciate cardiology input and recommendation Still remains in positive balance of 614- will continue intravenous Lasix of 40 mg daily She has been stable from cardiac point of view and noted to have sodium has gone down to 129 Does not seems to be volume overloaded and Lasix will be on hold Will get PT and OT evaluation Remains pleasantly confused Likely secondary to narcotic pain medications Will try to limit the use of narcotics 10/19 euvolemic at this time Diuretics held Limited echo planned for tomorrow Continue to monitor closely Altered mental status secondary to acute metabolic encephalopathy Multifactorial: Possibly from Flexeril and baclofen, possible withdrawal from psych medications including buspirone, duloxetine, escitalopram Further history obtained from patient's daughter Cami at the bedside Confirms patient has been taking oxycodone for several years now, recently changed to oxycodone ER 50 mg twice daily with oxycodone 5 mg 3 times daily as needed; also has been on buspirone, escitalopram, duloxetine for several years for depression; and Ativan 0.5 mg p.o. at bedtime -- baclofen and Flexeril discontinued, listed as allergies notified pain management service to reevaluate patient today given yesterday's events --- Buspirone, escitalopram or duloxetine held on admission secondary to significant QT prolongation Repeat EKG obtained today, QT corrected on the EKG read is 556 discussed with cardiology service, QT corrected likely falsely elevated secondary to T wave inversions Patient may be having withdrawals from psych meds which have been held during admission 4 days ago, will slowly reintroduce patient's chronic psych meds we will start with buspirone 10 mg twice daily, and Cymbalta 20 mg daily restart lorazepam at 0.25 mg p.o. at bedtime for now as per daughter patient has been on the above medications for several years but does not seem to be helping with her depression psychiatry service consulted -- Oxycodone ER decreased to 10 mg twice daily, also on oxycodone 5 mg every 8 hours as needed 10/19 Mental status mostly back to baseline Will increase oxycodone back to her usual dose of 50 mg twice a day for pain control Maintain doses of buspirone and Cymbalta Repeat EKG tomorrow If QT corrected seems to have further improved or at least stable, will consider resuming escitalopram reduced dose Continue to monitor closely Hyponatremia SIADH Sodium 132 Sodium level remains stable at 131 today Sodium went down to 129 likely secondary to use of diuretics Will monitor. -- Na stable at 131 Hypertension On metoprolol tartrate, losartan Blood pressure remains on the upper side and her metoprolol tartrate was changed to succinate -- Amlodipine increased to 5 mg at bedtime Increased troponin- likely stress-induced from CHF and doubt any ACS Possible demand ischemia Initial troponin 413 and repeat is 350 ER spoke with interventional cardiology on-call and currently no heparin recommended for now and monitor Serial cardiac enzymes have been improving Echo showed- LV ejection fraction 60 to 65%, there is moderate concentric LVH, there is a small anteroseptal wall motion abnormality with akinesis of the segments, LA is moderately dilated, aortic valve sclerosis moderate without significant aortic valvular stenosis, moderate mitral regurgitation and moderate tricuspid regurgitation estimated systolic pulmonary pressure is 60 mmHg neck The patient remains free from any cardiac symptoms Has been having frequent short segment of VTpotassium and magnesium were on the lower side and those have been replaced No more episodes of increased ventricular tachycardia Her electrolytes have been normalized Back pain- increasing back pain Ongoing Recent pelvic fracture- conservative management as per Ortho Continue pain medications on steroid taper , couple more days to finish PT OT when stable Pain seems to be increasing and will give as needed Dilaudid intravenously to control for the pain Will ask for pain management evaluation Appreciate pain therapy input and recommendation Started on antispasmodic to see if that helps -- Pain medication management per above lumbar spine MRI ordered Prolonged QTc -- management per above CKD stage III Creatinine 0.9 stable Prediabetes Follow HbA1c levels Hyperlipidemia On Zetia and fenofibrate Depression Will restart buspirone and duloxetine at lower dose Hold escitalopram for the meantime Psychiatry service consulted for medication management -- discussed with psychiatry service Agree with above management of psych meds History of alcohol use Seems drinks 2 to 3 glasses of wine Currently coming from long-term -- has not had any alcoholic drink for at least 1 month as per daughter Chronic pain disorder Opiate dependence Continue current pain medications DVT prophylaxis Lovenox Disposition pending discussion held with patient's children-their main goal is for patient to have quality of life at this point Pain management service HEATHER Chandler also had lengthy discussion with patient's family They are agreeable with consulting with palliative care service Return to alf facility after this hospitalization plan of care discussed with patient's children in detail and at length all questions answered they are understanding, agreeable, comfortable with the plan of care Admission and Anticipated Discharge Date Admission Date: October 14, 2024 Subjective follow-up for CHF, back pain, etc. Seen resting in bed, comfortable, not in distress awake, alert, oriented x 3 States she has significant back pain, radiating to her left leg No shortness of breath, chest pain, dizziness, palpitations No other symptoms Review of Systems Review of Systems: all noted and negative except for above Physical Exam Physical Exam: General- oriented x 3, not in distress, speaks in sentences with no effort or accessory muscle use Eyes- anicteric Neck- no JVD Lungs- clear breath sounds bilaterally, no rales/wheezes Heart- normal rate, regular rhythm; no murmurs Abdomen- normal bowel sounds, nondistended, soft, nontender Extremities- no pretibial edema, no calf tenderness Neuro- alert, oriented x 3; no gross focal neurologic deficits Skin- warm & dry Results & Data Results & Data Vital Signs (Past 12 Hours) Vital Signs Temp Pulse Pulse Resp BP Pulse Ox O2 Del Method 10/19/24 15:39 36.8 C 60 18 127/61 98 Room Air 10/19/24 14:05 58 L 10/19/24 11:04 36.9 C 70 18 157/74 H 98 Room Air 10/19/24 09:48 67 10/19/24 07:22 36.4 C L 72 18 155/58 H 94 Room Air all noted and reviewed including below
--- NOTE | 2024-10-19 18:02 | Psychiatric Consultation ---
Date of Consultation October 19, 2024 Impression / Recommendations Impression Assessment: Confusion due to multiple etiologies, primarily administration of baclofen. Improving, per daughter. Major depressive disorder, recurrent, unspecified Alcohol use disorder, moderate Other chronic pain Fracture of lumbar spine and pelvis, subsequent encounter Confusion The patient's acute confusion is likely multifactorial, with potential contributors including recent baclofen administration, polypharmacy, electrolyte imbalances, and hospitalization in the context of a recent pelvic fracture. Her longstanding depression and alcohol use disorder are likely contributing to her lack of motivation and reliance on pain medication. (1) Alcohol use: (2) AMS (altered mental status): Plan Plan: - Medications: - Agree with holding lorazepam, duloxetine and escitalopram until confusion begins to resolve. Consider restarting at lower doses when medically cleared - continue buspirone 10mg qAM, 30mg qPM for anxiety/depression - continue oxycodone 15mg ER BID, 5mg Q6H PRN for acute pain. - Schedule follow-up with outpatient psychiatrist within 1 week of discharge - Daughter reports hyponatremia is chronic. Consider possible contribution from SSRI and SNRI and follow basic metabolic panel daily to monitor electrolytes - consider psychotherapy referral to address depression, alcohol use, and pain coping skills - coordinate with primary care physician and assisted living facility for discharge planning and medication management I spent approximately 120 minutes reviewing notes, interviewing patient and her daughter, reviewing labs and documenting findings. Psych History Identifying Data 84-year-old female with past medical history significant for hypertension, hypertrophic cardiomyopathy, moderate left ventricular hypertrophy, valvular heart disease, CKD stage III, history of dialysis in 2012 thought to be reaction from valacyclovir, history of anaphylactic shock due NOEL inhibitors, history of stomach tumor s/p resection, dyslipidemia, prediabetes, pulmonary hypertension, peripheral vascular disease, GERD, chronic low back pain, osteoarthritis, osteoporosis, migraine, history of tobacco use, depression, who was admitted in end of August 2024 for mechanical fall and pelvic fracture and she was discharged to rehab on . Currently she is at [facility]. She still having significant pain in the back and radiating to the legs. Saw orthopedics recently for sciatica. On pain medications. Ambulating with walker short distance. She was sent in to the hospital because of shortness of breath and tachypnea. Her oxygen saturations were in 87% room air. Psychiatry was consulted to review psychiatric medications which were held following the onset of altered mental status. Collateral was obtained from her daughter. Chief Complaint Confusion, depression, back pain, and alcohol abuse History of Present Illness Background: 84-year-old female, referred by primary team for psychiatric evaluation of medications due to confusion. Collateral information obtained from daughter. History of Present Illness: The patient has a longstanding history of depression and alcohol abuse. She experiences chronic back pain related to previous surgeries and osteoporosis, for which she is prescribed oxycodone. The patient often runs out of her prescribed narcotics and turns to alcohol. Her daughter reports that the patient lacks motivation, frequently citing ailments such as headaches or back pain as reasons for inactivity. Approximately one month ago, the patient fractured her pelvis in a fall, leading to a hospital admission. She was subsequently transferred to a rehabilitation facility and then to an assisted living facility due to inability to care for herself independently. The patient's pain medications were adjusted during this time, including the addition of extended-release oxycodone. In the week prior to her admission, pt was administered various medications with [employer] activity, including prednisone. On Wednesday, the patient was readmitted to the hospital with shortness of breath and cardiac issues. Since admission, she has experienced significant confusion, which her daughter notes is a departure from her baseline. The confusion peaked after receiving a dose of baclofen on Wednesday, with the patient exhibiting symptoms resembling seizures or stroke. However, a CT scan and EEG were negative for these conditions. The patient's confusion has gradually improved since yesterday. The patient's current medications include buspirone, which was restarted yesterday, and lorazepam. Duloxetine and escitalopram were held due to concerns about QT prolongation. The patient also has a history of electrolyte imbalances, particularly hyponatremia, which may be exacerbated by her psychiatric medications. Developmental History: The patient lives independently in an apartment in [place]. She has a daughter who is involved in her care. Past Medical History: Chronic back pain with previous surgeries, pelvic fracture (1 month ago), osteoporosis, electrolyte imbalances (hyponatremia, hypomagnesemia, hypokalemia). Social History: Lives independently in an apartment prior to recent hospitalization and rehabilitation. Currently in an assisted living facility for rehabilitation. Past Psychiatric History Previous Psych History: Psychiatric History: Diagnosed with depression for approximately 10 years, managed by primary care physician. History of alcohol abuse. Previous treatment details unknown. Substance Use History: - Alcohol: Last use approximately 1 month ago, prior to hospitalization. Long history of alcohol abuse, often in conjunction with prescribed narcotics. - Oxycodone: Prescribed 5mg TID for chronic back pain, with recent increase to 15mg ER BID and 5mg Q6-8H PRN during hospitalization and rehabilitation. No reported misuse. Allergies Allergy/AdvReac Type Severity Reaction Status Date / Time aspirin Allergy Severe Hives Verified 07/19/24 13:32 NSAIDS (Non-Steroidal Allergy Severe Anaphylaxis Verified 07/19/24 13:32 Anti-Inflamma NOEL Inhibitors Allergy Unknown HIVES, Verified 07/19/24 13:32 SWELLING OF FACE ibuprofen Allergy Unknown Hives Verified 07/19/24 13:32 pantoprazole Allergy Unknown Unknown Verified 07/19/24 13:32 Voooxnn-OBI-VcC Reductase Allergy Unknown "arms and Verified 07/19/24 13:32 Inhibitor legs achy" [Vrmtvqa-Fsz-Nsq Reductase Inhibitor] baclofen AdvReac Severe severe Verified 10/19/24 16:40 muscle twitching, altered mental status cyclobenzaprine AdvReac Severe severe Verified 10/19/24 16:40 [From Flexeril] muscle twitching, altered mental status pravastatin [From Pravachol] AdvReac Severe liver Verified 07/19/24 13:32 complications gabapentin AdvReac Unknown Edema Verified 07/19/24 13:32 valacyclovir [From Valtrex] AdvReac Unknown Kidneys Verified 07/19/24 13:32 shut down Home Medications Medication Instructions Recorded Confirmed Type ezetimibe 10 mg tablet (Zetia) 10 mg PO HS 06/14/20 10/14/24 History fenofibrate micronized 67 mg 67 mg PO HS 06/14/20 10/14/24 History capsule lorazepam 0.5 mg tablet 0.5 mg sublingual HS PRN Insomnia 06/14/20 10/14/24 History lifitegrast 5 % eye drops in a 1 drp OPB BID 06/19/20 10/14/24 History dropperette (Xiidra) cholecalciferol (vitamin D3) 100 100 mcg PO DAILY 07/16/23 10/14/24 History mcg (4,000 unit) tablet escitalopram oxalate 10 mg tablet 10 mg PO DAILY 07/16/23 10/14/24 History escitalopram oxalate 20 mg tablet 20 mg PO DAILY 07/16/23 10/14/24 History ondansetron 4 mg disintegrating 8 mg PO Q8 PRN nausea 07/16/23 10/14/24 History tablet losartan 50 mg tablet 50 mg PO BID #60 tabs 01/01/24 10/14/24 Rx famotidine 20 mg tablet 20 mg PO HS 09/14/24 10/14/24 History furosemide 20 mg tablet 20 mg PO DAILY PRN Fluid Retention 09/14/24 10/14/24 History Flutter Valve #1 ea 09/19/24 10/14/24 Rx folic acid 400 mcg tablet 400 mcg PO QAM #30 tabs 09/19/24 10/14/24 Rx thiamine HCl (vitamin B1) 100 mg 100 mg PO QAM #30 tabs 09/19/24 10/14/24 Rx tablet acetaminophen 325 mg tablet 650 mg PO Q4 PRN PAIN 1-3 10/14/24 10/14/24 History bisacodyl 5 mg tablet,delayed 10 mg PO DAILY PRN Constipation 10/14/24 10/14/24 History release (Gentle Laxative (bisacodyl)) buspirone 15 mg tablet 15 mg PO DAILY 10/14/24 10/14/24 History buspirone 30 mg tablet 30 mg PO QPM 10/14/24 10/14/24 History cyclobenzaprine 5 mg tablet 5 mg PO TID PRN Muscle Spasm 10/14/24 10/14/24 History duloxetine 30 mg capsule,delayed 30 mg PO QPM 10/14/24 10/14/24 History release methylprednisolone 4 mg tablets in 4 mg PO UD 10/14/24 10/14/24 History a dose pack metoprolol tartrate 25 mg tablet 25 mg PO Q12 10/14/24 10/14/24 History omeprazole 40 mg capsule,delayed 40 mg PO BIDM 10/14/24 10/14/24 History release oxycodone 15 mg tablet,crush 15 mg PO AMHS 10/14/24 10/14/24 History resistant,extended release 12 hr oxycodone 5 mg tablet 5 mg PO Q8H PRN PAIN,MODERATE 10/14/24 10/14/24 History Patient History Medical History Vitamin D deficiency Mitral regurgitation Aortic stenosis Surgical History History of hysterectomy History of cholecystectomy Family History Other No pertinent family history Social History Smoking Status: Never smoker Second Hand Exposure: No; Do You Dip or Chew Tobacco: No; Tobacco Cessation Education Requested by Patient: No Hx Alcohol Use: Yes Alcohol type: beer and wine Alcohol Intake Frequency Comment: was daily but pt reports cutting back over past few months Hx Substance Use: No Preferred Language: Yakut Communication Ability: Effective Optician Required: No Beliefs That Will Affect Care: None marital status: Unknown Current Living Situation: Alone Current Living Situation Comment: High Rise Apartment Complex Other Information That Helps Us Care for You: No Feels Safe at Home: Yes Safety Concerns: Feels Safe At This Time Assistive Devices: Walker Physical Exam Psychiatric: Drowsy, oriented to month, year, situation and person. Not oriented to place. Apperance: appeared stated age Well groomed female who looks her stated age. She is lying on her bed. Cooperative. Eye Contact: + fair eye contact Motor Behavior: no abnormal motor movements Speech: normal rate/rhythm/volume of speech Affect: + anxious affect Mood: + anxious mood Thought Process: + circumstantial thought process Thought Content: + preoccupation Suicidal Thoughts: denies suicidal thoughts, denies suicidal plan and denies suicidal intent Homicidal Thoughts: denies homicidal thoughts, denies homicidal plan and denies homicidal intent Hallucinations: + visual hallucinations Registers /. Recall 06/23. Estimated Intelligence: consistent with education level Insight: + limited insight Judgment: + limited judgement Vital Signs (Past 24 Hours): Last Vital Signs Temp 36.8 C 10/19/24 15:39 Pulse 60 10/19/24 15:39 Resp 18 10/19/24 15:39 BP 127/61 10/19/24 15:39 Pulse Ox 98 10/19/24 15:39 O2 Del Method Room Air 10/19/24 15:39 O2 Flow Rate 1 10/15/24 20:00 Results & Data (PSY) Medications Administered Bisacodyl (Bisacodyl 5 Mg Tabec) 10 mg PO DAILY PRN PRN Reason: Constipation Stop: 11/14/24 01:10 Last Admin: 10/18/24 12:43 Dose: 10 mg Documented By: MAMADOU Buspirone HCl (Buspirone 5 Mg Tab) 10 mg PO BID [facility] Stop: 11/17/24 12:14 Last Admin: 10/19/24 08:09 Dose: 10 mg Documented By: Admin: 10/18/24 20:48 Dose: 10 mg Documented By: Admin: 10/18/24 12:43 Dose: 10 mg Documented By: MAMADOU Duloxetine HCl (Duloxetine Hcl 20 Mg Cap) 20 mg PO [facility] Stop: 11/17/24 20:59 Last Admin: 10/18/24 20:48 Dose: 20 mg Documented By: RUPESH Ezetimibe (Ezetimibe 10 Mg Tab) 10 mg PO [facility] Stop: 11/14/24 20:59 Last Admin: 10/18/24 20:49 Dose: 10 mg Documented By: Admin: 10/17/24 21:48 Dose: Not Given Documented By: Admin: 10/16/24 20:33 Dose: 10 mg Documented By: Admin: 10/15/24 20:08 Dose: 10 mg Documented By: GUMARO Famotidine (Famotidine 20 Mg Tab) 20 mg PO [facility] Stop: 11/14/24 20:59 Last Admin: 10/18/24 20:57 Dose: 20 mg Documented By: Admin: 10/17/24 21:49 Dose: Not Given Documented By: Admin: 10/16/24 20:34 Dose: 20 mg Documented By: Admin: 10/15/24 20:13 Dose: 20 mg Documented By: GUMARO Folic Acid (Folic Acid 400 Mcg Tab) 400 mcg PO [facility] Stop: 11/14/24 08:59 Last Admin: 10/19/24 08:10 Dose: 400 mcg Documented By: Admin: 10/18/24 12:20 Dose: 400 mcg Documented By: Admin: 10/17/24 07:27 Dose: 400 mcg Documented By: Admin: 10/16/24 07:58 Dose: 400 mcg Documented By: Admin: 10/15/24 08:03 Dose: 400 mcg Documented By: HERNAN Hydralazine HCl (Hydralazine Hcl 20 Mg/Ml Vial) 5 mg IV Q6H PRN PRN Reason: systolic bp > 160 Stop: 11/17/24 08:29 Last Admin: 10/18/24 09:21 Dose: 5 mg Documented By: MAMADOU Acetaminophen (Ofirmev) 1,000 mg in 100 mls @ 400 mls/hr IV Q8H PRN PRN Reason: Pain Stop: 10/21/24 09:44 Last Infusion: 10/19/24 17:21 Dose: Infused Documented By: Admin: 10/19/24 16:41 Dose: 400 mls/hr Documented By: Infusion: 10/19/24 08:42 Dose: Infused Documented By: Admin: 10/19/24 08:08 Dose: 400 mls/hr Documented By: Infusion: 10/18/24 21:20 Dose: Infused Documented By: Admin: 10/18/24 20:45 Dose: 400 mls/hr Documented By: Infusion: 10/18/24 10:53 Dose: Infused Documented By: Admin: 10/18/24 10:25 Dose: 400 mls/hr Documented By: SHERON Co-signed By: SCOTT Lidocaine (Lidocaine 5% 1 Patch) 1 patch TD QAM [facility] Stop: 11/17/24 09:59 Last Admin: 10/19/24 08:09 Dose: 1 patch Documented By: Admin: 10/18/24 11:10 Dose: 1 patch Documented By: MAMADOU Losartan Potassium (Losartan Potassium 50 Mg Tab) 50 mg PO BID [facility] Stop: 11/14/24 08:59 Last Admin: 10/19/24 08:10 Dose: 50 mg Documented By: Admin: 10/18/24 20:49 Dose: 50 mg Documented By: Admin: 10/18/24 11:11 Dose: 50 mg Documented By: Admin: 10/17/24 21:49 Dose: Not Given Documented By: Admin: 10/17/24 07:27 Dose: 50 mg Documented By: Admin: 10/16/24 20:34 Dose: 50 mg Documented By: Admin: 10/16/24 08:41 Dose: 50 mg Documented By: Admin: 10/15/24 20:09 Dose: 50 mg Documented By: Admin: 10/15/24 08:04 Dose: 50 mg Documented By: HERNAN Metoprolol Succinate (Metoprolol Succ 50mg Ext Rel Tab) 50 mg PO BID [facility] Stop: 11/15/24 09:59 Last Admin: 10/19/24 08:10 Dose: 50 mg Documented By: Admin: 10/18/24 20:49 Dose: 50 mg Documented By: Admin: 10/18/24 11:11 Dose: 50 mg Documented By: Admin: 10/17/24 21:49 Dose: Not Given Documented By: Admin: 10/17/24 07:26 Dose: 50 mg Documented By: Admin: 10/16/24 20:32 Dose: 50 mg Documented By: Admin: 10/16/24 10:07 Dose: 50 mg Documented By: MAMADOU Miscellaneous (Remove Lidoderm Patch) 1 each N/A DAILY@2100 [facility] Stop: 11/17/24 20:59 Last Admin: 10/18/24 20:58 Dose: 1 each Documented By: RUPESH Oxycodone HCl (Oxycodone Hcl Ir 5 Mg Tab (Immediate Release)) 5 mg PO Q8H PRN PRN Reason: PAIN,MODERATE Stop: 10/29/24 01:10 Last Admin: 10/19/24 15:04 Dose: 5 mg Documented By: Admin: 10/19/24 04:24 Dose: 5 mg Documented By: Admin: 10/18/24 17:40 Dose: 5 mg Documented By: Admin: 10/18/24 11:15 Dose: 5 mg Documented By: Admin: 10/16/24 17:54 Dose: 5 mg Documented By: Admin: 10/16/24 00:08 Dose: 5 mg Documented By: Admin: 10/15/24 16:21 Dose: 5 mg Documented By: Admin: 10/15/24 08:07 Dose: 5 mg Documented By: HERNAN Potassium Chloride (Potassium Chloride Crtab 20 Meq Tabcr) 20 meq PO QAM [facility] Stop: 11/15/24 08:59 Last Admin: 10/19/24 08:09 Dose: 20 meq Documented By: Admin: 10/18/24 15:31 Dose: Not Given Documented By: Admin: 10/17/24 07:25 Dose: 20 meq Documented By: Admin: 10/16/24 08:09 Dose: 20 meq Documented By: MAMADOU Thiamine HCl (Thiamine Hcl 100 Mg Tab) 100 mg PO QAM [facility] Stop: 11/14/24 08:59 Last Admin: 10/19/24 08:10 Dose: 100 mg Documented By: Admin: 10/18/24 12:21 Dose: 100 mg Documented By: Admin: 10/17/24 07:26 Dose: 100 mg Documented By: Admin: 10/16/24 08:41 Dose: 100 mg Documented By: Admin: 10/15/24 08:05 Dose: 100 mg Documented By: HERNAN Vitamin D (Cholecalciferol 25 Mcg (1000 Units) Tab) 100 mcg PO DAILY [facility] Stop: 11/14/24 08:59 Last Admin: 10/19/24 08:10 Dose: 100 mcg Documented By: Admin: 10/18/24 12:19 Dose: 100 mcg Documented By: Admin: 10/17/24 07:26 Dose: 100 mcg Documented By: Admin: 10/16/24 07:58 Dose: 100 mcg Documented By: Admin: 10/15/24 08:02 Dose: 100 mcg Documented By: HERNAN [place] [address] IN/OBS CONSULT LVL 5,80M Patient Type New History Detailed Exam Detailed Medical Decision Making Low Complexity Diagnoses Alcohol use F10.90 AMS (altered mental status) R41.82 Time Spent (min) 120
[2024-10-19] MEDS: LORazepam 0.5 MG TAB SL SCH (18:37)
[2024-10-19] MEDS: oxyCODONE HCL 15 MG TABCR (OxyCONTIN) PO SCH (20:49)
[2024-10-19] MEDS: amLODIPine BESYLATE 5 MG TAB PO SCH (20:50)
[2024-10-19] MEDS ORDERED: LORazepam 0.5 MG TAB SL SCH (21:00)
--- NOTE | 2024-10-19 21:13 | Magnetic Resonance Report ---
EXAM: MR lumbar spine wo con CLINICAL HISTORY: s/p fall, back pain TECHNIQUE: MRI of the lumbar spine was performed without the administration of intravenous contrast, acquiring multiple sequences. COMPARISON: 09/14/2024, CT. FINDINGS: Limitations due to metallic artifacts. L4: S1 transpedicular fixation with posterior laminectomy Grade 1 anterolisthesis of L4 over L5 and L5 over S1. T12 vertebral body upper wedging. T11, L2, L3, and L5 vertebral body hemangioma. No evidence of scoliosis is observed. Normal vertebral body height, no fracture identified. No lytic or sclerotic lesions. Diffuse mottled bone marrow appearance, mostly marrow conversion versus post-osteoporotic treatment changes. Intervertebral discs demonstrate a mild loss of hydration.n Tuzcl-jv-[id number] analysis: T10-T11: 1.4 mm diffuse disc herniation indenting the thecal sac, causing mild stenosis of the neural exit foramina, more inclined to the left side. T12-L1: There is no significant disc pathology. No spinal canal stenosis. No neural foraminal stenosis. No ligamentum flavum hypertrophy and facet joint arthropathy. L1-L2: 1.86 mm diffuse disc herniation abutting the thecal sac, causing bilateral mild narrowing of the neural exit foramina. Mild facet joint arthropathy. Mild ligamentum flavum hypertrophy. L2-L3: 3.5 mm diffuse disc bulge indenting the thecal sac, causing bilateral moderate to severe stenosis of the neural exit foramina, more inclined to the left side. Bilateral moderate facet joint arthropathy was evident more on the left side with an osteophyte indenting the thecal sac, causing mild stenosis of the spinal canal and severe stenosis of the left neural exit foramina with impingement of the underlying nerve roots. Marked the ligamentum flavum hypertrophy. L3-L4 limitation due to artifacts, 2.86 mm diffuse disc bulge abutting the thecal sac, causing bilateral mild stenosis of the neural exit canals, more inclined to the right side. No spinal canal stenosis. Posterior laminectomy. The facet joints cannot be visualized.d L4-L5: Surgical disc. Posterior laminectomy. No spinal canal stenosis. The facet joints cannot be visualized.. L5-S1: Surgical disc. Posterior laminectomy. No spinal canal stenosis. The facet joints cannot be visualized.zed Spinal Cord and Nerve Roots: Conus medullaris terminates at the L1 level without abnormality. Nerve roots appear unremarkable bilaterally. The lower thoracic spinal cord, conus medullaris, and cauda equina nerve roots are unremarkable. Soft Tissues: Paraspinal soft tissues appear normal without evidence of abnormal signal intensity or mass lesions. IMPRESSION: 1. L4: S1 transpedicular fixation with posterior laminectomy. [place] 2. Grade 1 anterolisthesis of L4 over L5 and L5 over S1. [place] 3. Multilevel disc bulges, as mentioned. Unchanged 4. ligamentum flavum hypertrophy. 5. Facet joint arthropathy. [place] 6. Diffuse mottled bone marrow appearance, mostly marrow conversion versus post-osteoporotic treatment changes. Clinical evaluation is advised. Electronically signed by Pillo Gramajo 10-19-2024 9:13 PM
[2024-10-20] MEDS: POLYETHYLENE (MIRALAX) 17 GM PACK PO SCH (08:02)
--- NOTE | 2024-10-20 10:46 | Cardiology Progress Note ---
Date of Service October 20, 2024 Assessment & Plan (1) Acute exacerbation of CHF (congestive heart failure): (2) Pleural effusion on right: (3) Pleural effusion on left: (4) Elevated troponin: (5) Hypomagnesemia: (6) Hypokalemia: (7) Non-sustained ventricular tachycardia: Plan 84-year-old female admitted with acute heart failure prompted by severe pain hypertension and likely stress mediated cardiomyopathy with marked metabolic derangements. EKG with significant T wave inversion and QT prolongation. Cardiac status appears stable with heart rate and fluid status. Blood pressure still elevated. Would add calcium channel malaika nocturnally to regimen. Underlying mental status issues being addressed possible drug withdrawal Discussed all in detail with daughter. CODE STATUS once again readdressed 10/19/2024 Complex 84-year-old female presenting with severe pain acute heart failure marked hypertension and likely stress mediated cardiomyopathy. Clinically improved after likely drug withdrawal concerns addressed. Heart rate and blood pressure returning better control no signs of heart failure. Recommendations: Increase nightly dosing of amlodipine to 5 mg continue current dosing of metoprolol succinate and losartan. Limited echo in a.m. and EKG in a.m. Continue pain control 10/20/2024 84-year-old female presenting with heart failure marked hypertension and stress mediated cardiomyopathy. Echocardiogram demonstrated return to normal LV systolic function today. Continue to treat pain continue current antihypertensive and cardiac medications with metoprolol succinate 50 mg twice per day losartan 50 mg twice per day and new addition of amlodipine 5 mg nightly Admission and Anticipated Discharge Date Admission Date: October 14, 2024 Subjective Patient was seen and examined, chart, medications, telemetry reviewed. Still with pain but otherwise doing well ambulated last evening. No dizziness lightheaded syncope or near syncope no arrhythmias. Echocardiogram this morning demonstrates normalization of LV systolic function and wall motion abnormalities previously. Physical Exam Constitutional: + thin and + frail appearing; no acute d istress Eyes: PERRL, conjunctivae normal, anicteric sclerae Neck: trachea midline, no thyromegaly Respiratory: Auscultation: + diminished lung sounds Cardiovascular: Rate/Rhythm: regular rate and regular rhythm Heart Sounds: + murmur (Grade 2 over 6 systolic ejection murmur) Vessels: no JVD Extremities: no edema Gastrointestinal (Abdomen): normal bowel sounds, soft, nontender, no hepatosplenomegaly Results & Data Vital Signs (Past 12 Hours) Vital Signs Temp Pulse Resp BP Pulse Ox O2 Del Method 10/20/24 08:06 36.8 C 73 18 154/81 H 96 Room Air 10/20/24 03:23 36.9 C 62 13 132/64 94 Room Air 10/19/24 23:12 36.8 C 61 16 130/56 L 98 Room Air
--- NOTE | 2024-10-20 12:06 | Palliative Care Progress Note ---
Date of Service October 20, 2024 Assessment & Plan (1) Palliative care by specialist: (2) Counseling regarding advanced directives and goals of care: Plan: Met with pt's son Michael at bedside, he shared that his sisters will be helping to make all decisions on pt's ongoing care. He shared that they all are in agreement about goals of care and plan remains to discharge to [facility] to optimize strength and functional independence with hopes to return to her assisted living facility for eventual transition to hospice care with [facility] hospice if she declines. Plan DNR/DNI - POLST form should be completed prior to discharge. We will sign off on this patient as goals of care are clearly established for DNR/DNI but continue all other life prolonging therapies at this time. Thank you for including Palliative Care in the management of this patient. Please call with any questions or concerns regarding this consultation. Admission and Anticipated Discharge Date Admission Date: October 14, 2024 Subjective Assessed pt at bedside, her son Michael was present. Pt was more alert today and pleasantly confused. She voiced no complaints and asked for a comb to fix her hair. RACHEL NEAL. Review of Systems Review of Systems: All systems reviewed & are unremarkable except as noted in Subjective Physical Exam Constitutional: WD/WN, vitals as above Eyes: PERRL, conjunctivae normal, anicteric sclerae ENMT: external ear and nose normal, oropharynx normal Neck: trachea midline, no thyromegaly Respiratory: normal respiratory effort; no respiratory distress Auscultation: + crackles Cardiovascular: RRR, no murmur, no edema Gastrointestinal (Abdomen): normal bowel sounds, soft, nontender, no hepatosplenomegaly Musculoskeletal: no cyanosis or clubbing, extremities motor strength 5/5 Skin: no rashes, warm and dry Results & Data Vital Signs (Past 12 Hours) Vital Signs Temp Pulse Resp BP Pulse Ox O2 Del Method 10/20/24 08:06 36.8 C 73 18 154/81 H 96 Room Air 10/20/24 03:23 36.9 C 62 13 132/64 94 Room Air Diagnostic Findings Chest X-Ray 10/14/24 18:15 Clinical History: Dyspnea Technique: A frontal view of the chest was obtained Comparison is made to the prior examination dated 09/15/2024 Findings: There is worsened right lung base opacity, concerning for pneumonia. The heart is mildly enlarged. There is mild pulmonary edema. No definite pneumothorax is seen. There are suspected small bilateral pleural effusions No fracture is noted. No foreign body is seen Impression: 1. Small bilateral pleural effusions 2. Cardiomegaly and mild pulmonary edema 3. Possible right lower lobe pneumonia ACT 112: Positive. There are findings on this exam that require communication between the performing entity and the patient following Patient Test Result Information Act ([place] ACT 112) guidelines. Electronically signed by Migue Friedman 10-14-2024 6:41 PM Chest CTA 10/14/24 18:50 Clinical history: Dyspnea Technique: Axial computed tomography images were obtained of the chest after the administration of intravenous contrast according to the CT angiogram protocol Comparison is made to the prior CT dated 09/16/2024 Findings: There is no definite sign of pulmonary embolism. There is mild emphysema. There are new bilateral small to moderate sized pleural effusions. There is mild bilateral lower lobe atelectasis. There is no definite sign of pneumonia. There is no pneumothorax. There is no sign of pulmonary fibrosis or other diffuse interstitial process. No endobronchial lesion is seen There is no mediastinal, hilar, or axillary adenopathy. The thoracic aorta appears unremarkable with no sign of aneurysm or dissection. There is no pericardial effusion. There is coronary atherosclerosis The visualized upper abdomen appears unremarkable. There are multiple old left rib fractures. No focal osseous lesion is evident Impression: 1. No definite sign of pulmonary embolism 2. New bilateral pleural effusions 3. Mild emphysema 4. Coronary atherosclerosis Electronically signed by Migue Friedman 10-14-2024 7:[address] 10/17/24 17:47 Exam(s): CT HEAD Without Contrast EXAM: CT Head Without Intravenous Contrast CLINICAL HISTORY: Reason for exam: change in mental status. TECHNIQUE: Axial computed tomography images of the head/brain without intravenous contrast. CTDI is 102.78 mGy and DLP is 1406.31 mGy-cm. Automated exposure control was utilized for the study. A dose lowering technique was utilized adhering to the principles of ALARA. COMPARISON: 12/30/[address] FINDINGS: Artifacts: Images are degraded by motion artifact. Brain: Global parenchymal atrophy. No hemorrhage, extra-axial fluid collection, mass effect, or edema. Ventricles: Unremarkable. Bones/joints: Unremarkable. No fracture. Soft tissues: Unremarkable. Sinuses: No acute sinusitis. Mastoid air cells: Unremarkable as visualized. IMPRESSION: 1. No acute intracranial abnormality. Electronically signed by: Parker De Anda MD 10/17/24 21:26 PM Lumbar Spine MRI 10/19/24 16:25 EXAM: MR lumbar spine wo con CLINICAL HISTORY: s/p fall, back pain TECHNIQUE: MRI of the lumbar spine was performed without the administration of intravenous contrast, acquiring multiple sequences. COMPARISON: 09/14/2024, CT. FINDINGS: Limitations due to metallic artifacts. L4: S1 transpedicular fixation with posterior laminectomy Grade 1 anterolisthesis of L4 over L5 and L5 over S1. T12 vertebral body upper wedging. T11, L2, L3, and L5 vertebral body hemangioma. No evidence of scoliosis is observed. Normal vertebral body height, no fracture identified. No lytic or sclerotic lesions. Diffuse mottled bone marrow appearance, mostly marrow conversion versus post-osteoporotic treatment changes. Intervertebral discs demonstrate a mild loss of hydration.n [id number] analysis: T10-T11: 1.4 mm diffuse disc herniation indenting the thecal sac, causing mild stenosis of the neural exit foramina, more inclined to the left side. T12-L1: There is no significant disc pathology. No spinal canal stenosis. No neural foraminal stenosis. No ligamentum flavum hypertrophy and facet joint arthropathy. L1-L2: 1.86 mm diffuse disc herniation abutting the thecal sac, causing bilateral mild narrowing of the neural exit foramina. Mild facet joint arthropathy. Mild ligamentum flavum hypertrophy. L2-L3: 3.5 mm diffuse disc bulge indenting the thecal sac, causing bilateral moderate to severe stenosis of the neural exit foramina, more inclined to the left side. Bilateral moderate facet joint arthropathy was evident more on the left side with an osteophyte indenting the thecal sac, causing mild stenosis of the spinal canal and severe stenosis of the left neural exit foramina with impingement of the underlying nerve roots. Marked the ligamentum flavum hypertrophy. L3-L4 limitation due to artifacts, 2.86 mm diffuse disc bulge abutting the thecal sac, causing bilateral mild stenosis of the neural exit canals, more inclined to the right side. No spinal canal stenosis. Posterior laminectomy. The facet joints cannot be visualized.d L4-L5: Surgical disc. Posterior laminectomy. No spinal canal stenosis. The facet joints cannot be visualized.. L5-S1: Surgical disc. Posterior laminectomy. No spinal canal stenosis. The facet joints cannot be visualized.zed Spinal Cord and Nerve Roots: Conus medullaris terminates at the L1 level without abnormality. Nerve roots appear unremarkable bilaterally. The lower thoracic spinal cord, conus medullaris, and cauda equina nerve roots are unremarkable. Soft Tissues: Paraspinal soft tissues appear normal without evidence of abnormal signal intensity or mass lesions. IMPRESSION: 1. L4: S1 transpedicular fixation with posterior laminectomy. [place]chanegd 2. Grade 1 anterolisthesis of L4 over L5 and L5 over S1. [place]egd 3. Multilevel disc bulges, as mentioned. Unchanged 4. ligamentum flavum hypertrophy. 5. Facet joint arthropathy. [place]d 6. Diffuse mottled bone marrow appearance, mostly marrow conversion versus post-osteoporotic treatment changes. Clinical evaluation is advised. Electronically signed by Pillo Gramajo 10-19-2024 9:13 PM Medications Administered Current Inpatient Medications Acetaminophen (Acetaminophen 325 Mg Tab) 650 mg PO Q4H PRN PRN Reason: Pain or Fever Stop: 11/14/24 01:10 Amlodipine Besylate (Amlodipine Besylate 5 Mg Tab) 5 mg PO HS TESHA Stop: 11/18/24 20:59 Last Admin: 10/19/24 20:50 Dose: 5 mg Artificial Tears (Artificial Tears) 1 drops OPB QID PRN PRN Reason: Dryness Stop: 11/14/24 01:19 Bisacodyl (Bisacodyl 5 Mg Tabec) 10 mg PO DAILY PRN PRN Reason: Constipation Stop: 11/14/24 01:10 Last Admin: 10/20/24 08:02 Dose: 10 mg Buspirone HCl (Buspirone 5 Mg Tab) 10 mg PO BID TESHA Stop: 11/17/24 12:14 Last Admin: 10/20/24 08:01 Dose: 10 mg Duloxetine HCl (Duloxetine Hcl 20 Mg Cap) 20 mg PO HS TESHA Stop: 11/17/24 20:59 Last Admin: 10/19/24 20:50 Dose: 20 mg Ezetimibe (Ezetimibe 10 Mg Tab) 10 mg PO HS TESHA Stop: 11/14/24 20:59 Last Admin: 10/19/24 20:50 Dose: 10 mg Famotidine (Famotidine 20 Mg Tab) 20 mg PO HS [facility] Stop: 11/14/24 20:59 Last Admin: 10/19/24 20:49 Dose: 20 mg Folic Acid (Folic Acid 400 Mcg Tab) 400 mcg PO QAM [facility] Stop: 11/14/24 08:59 Last Admin: 10/20/24 08:01 Dose: 400 mcg Hydralazine HCl (Hydralazine Hcl 20 Mg/Ml Vial) 5 mg IV Q6H PRN PRN Reason: systolic bp > 160 Stop: 11/17/24 08:29 Last Admin: 10/18/24 09:21 Dose: 5 mg Acetaminophen (Ofirmev) 1,000 mg in 100 mls @ 400 mls/hr IV Q8H PRN PRN Reason: Pain Stop: 10/21/24 09:44 Last Infusion: 10/20/24 08:20 Dose: Infused Lidocaine (Lidocaine 5% 1 Patch) [facility] Stop: 11/17/24 09:59 Last Admin: 10/20/24 08:02 Dose: 1 patch Lorazepam (Lorazepam 0.5 Mg Tab) 0.25 mg SL [facility] Stop: 11/18/24 18:44 Last Admin: 10/19/24 18:37 Dose: 0.25 mg Losartan Potassium (Losartan Potassium 50 Mg Tab) 50 mg PO BID [facility] Stop: 11/14/24 08:59 Last Admin: 10/20/24 08:02 Dose: 50 mg Metoprolol Succinate (Metoprolol Succ 50mg Ext Rel Tab) 50 mg PO BID [facility] Stop: 11/15/24 09:59 Last Admin: 10/20/24 08:02 Dose: 50 mg Miscellaneous (Remove Lidoderm Patch) 1 each N/A DAILY@2100 [facility] Stop: 11/17/24 20:59 Last Admin: 10/19/24 20:50 Dose: 1 each Nitroglycerin (Nitroglycerin Sl 0.4 Mg/Tab Tab) 0.4 mg SL Q5M PRN PRN Reason: Chest Pain Stop: 11/14/24 01:10 Oxycodone HCl (Oxycodone Hcl Ir 5 Mg Tab (Immediate Release)) 5 mg PO Q8H PRN PRN Reason: PAIN,MODERATE Stop: 10/29/24 01:10 Last Admin: 10/20/24 05:15 Dose: 5 mg Oxycodone HCl (Oxycodone Hcl 15 Mg Tabcr (Oxycontin)) 15 mg PO BID [facility] Stop: 11/02/24 20:59 Last Admin: 10/20/24 08:01 Dose: 15 mg Polyethylene Glycol (Polyethylene (Miralax) 17 Gm Pack) 17 gm PO DAILY PRN PRN Reason: Constipation Stop: 11/14/24 01:10 Polyethylene Glycol (Polyethylene (Miralax) 17 Gm Pack) 17 gm PO Q2D [facility] Stop: 11/19/24 08:59 Last Admin: 10/20/24 08:02 Dose: Not Given Potassium Chloride (Potassium Chloride Crtab 20 Meq Tabcr) 20 meq PO QAM [facility] Stop: 11/15/24 08:59 Last Admin: 10/20/24 08:01 Dose: 20 meq Thiamine HCl (Thiamine Hcl 100 Mg Tab) 100 mg PO QAM [facility] Stop: 11/14/24 08:59 Last Admin: 10/20/24 08:02 Dose: 100 mg Vitamin D (Cholecalciferol 25 Mcg (1000 Units) Tab) 100 mcg PO DAILY [facility] Stop: 11/14/24 08:59 Last Admin: 10/20/24 08:01 Dose: 100 mcg PG Care Time/CCT Total # of Minutes Spent Total Time Spent with Patient: Total time spent is greater than 50% in coordination of care (as documented) at patient's floor/unit and/or counseling patient: Coding [place] [address] SUB INP/OBS CARE 2/35MIN Patient Type Established History Problem Focused Exam Problem Focused Medical Decision Making Low Complexity Diagnoses Palliative care by specialist Z51.5 Counseling regarding advanced directives and goals of care Z71.89
--- NOTE | 2024-10-20 15:07 | Hospitalist Progress Note ---
Date of Service October 20, 2024 Assessment & Plan (1) Acute exacerbation of CHF (congestive heart failure): (2) Non-sustained ventricular tachycardia: (3) Encephalopathy: (4) QT prolongation: Plan: (1) Acute exacerbation of CHF (congestive heart failure): Plan: 84-year-old female with past medical history significant for hypertension, hypertrophic cardiomyopathy, moderate left ventricular hypertrophy, valvular heart disease, CKD stage III, history of dialysis in 2013 thought to be reaction from valacyclovir, history of anaphylactic shock due NOEL inhibitors, history of stomach tumor s/p resection, dyslipidemia, prediabetes, pulmonary hypertension, peripheral vascular disease, GERD, chronic low back pain, osteoarthritis, osteoporosis, migraine, history of tobacco use, depression, who was admitted in end of August 2024 for mechanical fall and pelvic fracture and she was discharged to rehab on . Currently she is at [facility]. She still having significant pain in the back and radiating to the legs. Saw orthopedics recently for sciatica. On pain medications. Ambulating with walker short distance. She was sent in today to the hospital because of shortness of breath and tachypnea. Her oxygen saturations were in 87% room air and on nasal cannula saturating okay currently. Daughter is in the room. Denies any cough. Denies any fevers. No chest pain. Has constant runny nose. Has some sore throat. Currently no headache. No abdominal pain. Constipated. Micturating okay. No lower extremity edema. Hemodynamics are okay. Acute CHF Presents with shortness of breath CTA chest no PE. New bilateral pleural effusions- likely secondary to CHF Prior Echocardiogram reporting HCM and LVOT gradient with Valsalva. Has moderate aortic regurgitation, mild to moderate mitral regurgitation and mild tricuspid Regurgitation BNP 3140 Received IV Lasix 60 mg in the ER Has been getting 40mg IV Lasix Daily weights and I's and O's Has not had much urine output yet and will continue intravenous Lasix with electrolyte replacement Appreciate cardiology input and recommendation Still remains in positive balance of 614- will continue intravenous Lasix of 40 mg daily She has been stable from cardiac point of view and noted to have sodium has gone down to 129 Does not seems to be volume overloaded and Lasix will be on hold Will get PT and OT evaluation Remains pleasantly confused Likely secondary to narcotic pain medications Will try to limit the use of narcotics 5/2 euvolemic at this time Diuretics discontinued echo: EF 65 to 70%, compared to prior study October 15, 2024, apical and septal wall motion abnormalities have resolved, ejection fraction is normal to hyperdynamic Continue to monitor closely Altered mental status secondary to acute metabolic encephalopathy Multifactorial: Possibly from Flexeril and baclofen, possible withdrawal from psych medications including buspirone, duloxetine, escitalopram Further history obtained from patient's daughter Cami at the bedside Confirms patient has been taking oxycodone for several years now, recently changed to oxycodone ER 50 mg twice daily with oxycodone 5 mg 3 times daily as needed; also has been on buspirone, escitalopram, duloxetine for several years for depression; and Ativan 0.5 mg p.o. at bedtime -- baclofen and Flexeril discontinued, listed as allergies notified pain management service to reevaluate patient today given yesterday's events --- Buspirone, escitalopram or duloxetine held on admission secondary to significant QT prolongation Repeat EKG obtained today, QT corrected on the EKG read is 556 discussed with cardiology service, QT corrected likely falsely elevated secondary to T wave inversions Patient may be having withdrawals from psych meds which have been held d uring admission 4 days ago, will slowly reintroduce patient's chronic psych meds we will start with buspirone 10 mg twice daily, and Cymbalta 20 mg daily restart lorazepam at 0.25 mg p.o. at bedtime for now as per daughter patient has been on the above medications for several years but does not seem to be helping with her depression psychiatry service consulted -- Oxycodone ER decreased to 10 mg twice daily, also on oxycodone 5 mg every 8 hours as needed 10/19 Mental status mostly back to baseline Will increase oxycodone back to her usual dose of 50 mg twice a day for pain control Maintain doses of buspirone and Cymbalta Repeat EKG tomorrow If QT corrected seems to have further improved or at least stable, will consider resuming escitalopram reduced dose Continue to monitor closely 10/20 Mental status back to baseline Continue with buspirone, Cymbalta Repeat EKG tomorrow Hyponatremia SIADH Sodium 132 Sodium level remains stable at 131 today Sodium went down to 129 likely secondary to use of diuretics Will monitor. -- Na stable at 131 Hypertension On metoprolol tartrate, losartan Blood pressure remains on the upper side and her metoprolol tartrate was osmin nged to succinate -- Amlodipine increased to 5 mg at bedtime Continue to monitor blood pressure closely Increased troponin- likely stress-induced from CHF and doubt any ACS Possible demand ischemia Initial troponin 413 and repeat is 350 ER spoke with interventional cardiology on-call and currently no heparin recommended for now and monitor Serial cardiac enzymes have been improving Echo showed- LV ejection fraction 60 to 65%, there is moderate concentric LVH, there is a small anteroseptal wall motion abnormality with akinesis of the segments, LA is moderately dilated, aortic valve sclerosis moderate without significant aortic valvular stenosis, moderate mitral regurgitation and moderate tricuspid regurgitation estimated systolic pulmonary pressure is 60 mmHg neck The patient remains free from any cardiac symptoms Has been having frequent short segment of VTpotassium and magnesium were on the lower side and those have been replaced No more episodes of increased ventricular tachycardia Her electrolytes have been normalized Back pain- increasing back pain Ongoing Recent pelvic fracture- conservative management as per Ortho Continue pain medications on steroid taper , couple more days to finish PT OT when stable Pain seems to be increasing and will give as needed Dilaudid intravenously to control for the pain Will ask for pain management evaluation Appreciate pain therapy input and recommendation Started on antispasmodic to see if that helps -- Pain medication management per above Lumbar spine MRI reviewed Discussed with pain management service, does not recommend any procedures including steroid injections at this time Continue oral pain medication Prolonged QTc -- management per above CKD stage III --Creatinine 0.9 stable Prediabetes --Follow HbA1c levels Hyperlipidemia On Zetia and fenofibrate Depression Will restart buspirone and duloxetine at lower dose Hold escitalopram for the meantime Psychiatry service consulted for medication management -- discussed with psychiatry service Agree with above management of psych meds History of alcohol use Seems drinks 2 to 3 glasses of wine Currently coming from half-way -- has not had any alcoholic drink for at least 1 month as per daughter Chronic pain disorder Opiate dependence Continue current pain medications DVT prophylaxis Lovenox Disposition pending plan of care discussed with patient's children in detail and at length all questions answered they are understanding, agreeable, comfortable with the plan of care Admission and Anticipated Discharge Date Admission Date: October 14, 2024 Subjective follow-up for CHF exacerbation, encephalopathy secondary to medication use, lower back pain, etc. Seen resting in bed, not in distress States she feels a little bit better than yesterday Still having significant pain when seated, mostly on the left buttock radiating to the left leg No chest pain, shortness of breath, palpitations, dizziness, headache No other symptoms Review of Systems Review of Systems: all noted and negative except for above Physical Exam Physical Exam: General- oriented x 3, not in distress, speaks in sentences with no effort or accessory muscle use Eyes- anicteric Neck- no JVD Lungs- clear breath sounds bilaterally, no rales/wheezes Heart- normal rate, regular rhythm; no murmurs Abdomen- normal bowel sounds, nondistended, soft, nontender Extremities- no pretibial edema, no calf tenderness Neuro- alert, oriented x 3; no gross focal neurologic deficits Skin- warm & dry Results & Data Results & Data Vital Signs (Past 12 Hours) Vital Signs Temp Pulse Resp BP Pulse Ox O2 Del Method 10/20/24 12:10 36.8 C 65 18 171/78 H 98 Room Air 10/20/24 08:06 36.8 C 73 18 154/81 H 96 Room Air 10/20/24 03:23 36.9 C 62 13 132/64 94 Room Air all noted and reviewed including below
[2024-10-20] MEDS: ENOXAPARIN INJ 40 MG/0.4 ML SYR SQ SCH (17:26)
[2024-10-21 07:40] VITALS: RESP 17; TEMP 98.8; O2SAT 95
--- NOTE | 2024-10-21 09:59 | Discharge Summary ---
Discharge Summary Date of Service October 21, 2024 Principal Dx & Hospital Course #1 = Principal Diagnosis (1) Acute exacerbation of CHF (congestive heart failure): (2) Non-sustained ventricular tachycardia: (3) Encephalopathy: (4) QT prolongation: (1) Acute exacerbation of CHF (congestive heart failure): Plan: 84-year-old female with past medical history significant for hypertension, hypertrophic cardiomyopathy, moderate left ventricular hypertrophy, valvular heart disease, CKD stage III, history of dialysis in 2013 thought to be reaction from valacyclovir, history of anaphylactic shock due NOEL inhibitors, history of stomach tumor s/p resection, dyslipidemia, prediabetes, pulmonary hypertension, peripheral vascular disease, GERD, chronic low back pain, osteoarthritis, osteoporosis, migraine, history of tobacco use, depression, who was admitted in end of August 2024 for mechanical fall and pelvic fracture and she was discharged to rehab on . Currently she is at [facility] [place]. She still having significant pain in the back and radiating to the legs. Saw orthopedics recently for sciatica. On pain medications. Ambulating with walker short distance. She was sent in today to the hospital because of shortness of breath and tachypnea. Her oxygen saturations were in 87% room air and on nasal cannula saturating okay currently. Daughter is in the room. Denies any cough. Denies any fevers. No chest pain. Has constant runny nose. Has some sore throat. Currently no headache. No abdominal pain. Constipated. Micturating okay. No lower extremity edema. Hemodynamics are okay. Acute CHF Presents with shortness of breath CTA chest no PE. New bilateral pleural effusions- likely secondary to CHF Prior Echocardiogram reporting HCM and LVOT gradient with Valsalva. Has moderate aortic regurgitation, mild to moderate mitral regurgitation and mild tricuspid Regurgitation BNP 3140 Received IV Lasix 60 mg in the ER Has been getting 40mg IV Lasix Daily weights and I's and O's Has not had much urine output yet and will continue intravenous Lasix with electrolyte replacement Appreciate cardiology input and recommendation Still remains in positive balance of 614- will continue intravenous Lasix of 40 mg daily She has been stable from cardiac point of view and noted to have sodium has gone down to 129 Does not seems to be volume overloaded and Lasix will be on hold Will get PT and OT evaluation Remains pleasantly confused Likely secondary to narcotic pain medications Will try to limit the use of narcotics /3 euvolemic at this time Diuretics discontinued echo: EF 65 to 70%, compared to prior study October 15, 2024, apical and septal wall motion abnormalities have resolved, ejection fraction is normal to hyperdynamic Continue to monitor closely Altered mental status secondary to acute metabolic encephalopathy Multifactorial: Possibly from Flexeril and baclofen, possible withdrawal from psych medications including buspirone, duloxetine, escitalopram Further history obtained from patient's daughter Cami at the bedside Confirms patient has been taking oxycodone for several years now, recently changed to oxycodone ER 50 mg twice daily with oxycodone 5 mg 3 times daily as needed; also has been on buspirone, escitalopram, duloxetine for several years for depression; and Ativan 0.5 mg p.o. at bedtime -- baclofen and Flexeril discontinued, listed as allergies notified pain management service to reevaluate patient today given yesterday's events --- Buspirone, escitalopram or duloxetine held on admission secondary to significant QT prolongation Repeat EKG obtained today, QT corrected on the EKG read is 556 discussed with cardiology service, QT corrected likely falsely elevated secondary to T wave inversions Patient may be having withdrawals from psych meds which have been held during admission 4 days ago, will slowly reintroduce patient's chronic psych meds we will start with buspirone 10 mg twice daily, and Cymbalta 20 mg daily restart lorazepam at 0.25 mg p.o. at bedtime for now as per daughter patient has been on the above medications for several years but does not seem to be helping with her depression psychiatry service consulted -- Oxycodone ER decreased to 10 mg twice daily, also on oxycodone 5 mg every 8 hours as needed 10/19 Mental status mostly back to baseline Will increase oxycodone back to her usual dose of 50 mg twice a day for pain control Maintain doses of buspirone and Cymbalta Repeat EKG tomorrow If QT corrected seems to have further improved or at least stable, will consider resuming escitalopram reduced dose Continue to monitor closely 10/21 Mental status back to baseline QTC 504 Continue with buspirone, Cymbalta, Escitalopram with reduced dosing Hyponatremia SIADH Sodium 132 Sodium level remains stable at 131 today Sodium went down to 129 likely secondary to use of diuretics Will monitor. -- Na stable at 131 Hypertension On metoprolol tartrate, losartan Blood pressure remains on the upper side and her metoprolol tartrate was changed to succinate -- Amlodipine increased to 5 mg at bedtime Continue to monitor blood pressure closely Increased troponin- likely stress-induced from CHF and doubt any ACS Possible demand ischemia Initial troponin 413 and repeat is 350 ER spoke with interventional cardiology on-call and currently no heparin recommended for now and monitor Serial cardiac enzymes have been improving Echo showed- LV ejection fraction 60 to 65%, there is moderate concentric LVH, there is a small anteroseptal wall motion abnormality with akinesis of the segments, LA is moderately dilated, aortic valve sclerosis moderate without significant aortic valvular stenosis, moderate mitral regurgitation and moderate tricuspid regurgitation estimated systolic pulmonary pressure is 60 mmHg neck The patient remains free from any cardiac symptoms Has been having frequent short segment of VTpotassium and magnesium were on the lower side and those have been replaced No more episodes of increased ventricular tachycardia Her electrolytes have been normalized Back pain- increasing back pain Ongoing Recent pelvic fracture- conservative management as per Ortho Continue pain medications on steroid taper , couple more days to finish PT OT when stable Pain seems to be increasing and will give as needed Dilaudid intravenously to control for the pain Will ask for pain management evaluation Appreciate pain therapy input and recommendation Started on antispasmodic to see if that helps -- Pain medication management per above Lumbar spine MRI reviewed Discussed with pain management service, does not recommend any procedures including steroid injections at this time Continue oral pain medication- Oxycodone ER 15mg BID and Oxycodone IR 5mg q8h PRN Prolonged QTc -- management per above CKD stage III --Creatinine 0.9 stable Prediabetes Hyperlipidemia On Zetia and fenofibrate Depression Will restart buspirone and duloxetine at lower dose Hold escitalopram for the meantime Psychiatry service consulted for medication management -- discussed with psychiatry service management of psych meds per above History of alcohol use Seems drinks 2 to 3 glasses of wine Currently coming from skilled nursing -- has not had any alcoholic drink for at least 1 month as per daughter Chronic pain disorder Opiate dependence Continue current pain medications DVT prophylaxis Lovenox Disposition dc to [facility] plan of care discussed with patient's children in detail and at length all questions answered they are understanding, agreeable, comfortable with the plan of care Notes For Next Care Provider Medication Changes From Visit as per med rec Admission HPI Per Admitting Provider 84-year-old female with past medical history significant for hypertension, hypertrophic cardiomyopathy, moderate left ventricular hypertrophy, valvular heart disease, CKD stage III, history of dialysis in 2012 thought to be reaction from valacyclovir, history of anaphylactic shock due NOEL inhibitors, history of stomach tumor s/p resection, dyslipidemia, prediabetes, pulmonary hypertension, peripheral vascular disease, GERD, chronic low back pain, osteoarthritis, osteoporosis, migraine, history of tobacco use, depression, who was admitted in end of August 2024 for mechanical fall and pelvic fracture and she was discharged to rehab on 09/19/24. Currently she is at [facility] [place]. She still having significant pain in the back and radiating to the legs. Saw orthopedics recently for sciatica. On pain medications. Ambulating with walker short distance. She was sent in today to the hospital because of shortness of breath and tachypnea. Her oxygen saturations were in 87% room air and on nasal cannula saturating okay currently. Daughter is in the room. Denies any cough. Denies any fevers. No chest pain. Has constant runny nose. Has some sore throat. Currently no headache. No abdominal pain. Constipated. Micturating okay. No lower extremity edema. Hemodynamics are okay. Past medical history. As mentioned above Past surgical history. Colonoscopy and EGD. Laparoscopic cholecystectomy. Stomach surgery 1983. Repair of drooping eyelid. Total abdominal hysterectomy with removal of tubes Social history. Quit smoking in 2000. Social drinking. No drug use. Family history. Mother had arthritis. Maternal cousin had breast cancer. Father had bladder cancer. Maternal grandfather had throat cancer. Paternal grandfather had abdomen cancer. Maternal grandmother had colon cancer. Brother had heart surgery in early 60s. Sister had IN. Admission Exam Per Admitting Provider General- Not in distress Head- atraumatic Eyes- PERRL. ENT- oropharynx clear Neck- supple, JVD present Lungs- clear to auscultation mild bibasilar crackles Heart- regular rhythm; no murmur, no gallop. Abdomen- normal bowel sounds, soft, nontender, no distension. Extremities- no pretibial edema, no erythema seen Neuro- alert, oriented PERRL, no facial palsy; no dysarthria; moves extremities Musculoskeletal b/l SLR test positive Discharge Exam General- oriented x 3, not in distress, speaks in sentences with no effort or accessory muscle use Eyes- anicteric Neck- no JVD Lungs- clear breath sounds bilaterally, no rales/wheezes Heart- normal rate, regular rhythm; no murmurs Abdomen- normal bowel sounds, nondistended, soft, nontender Extremities- no pretibial edema, no calf tenderness Neuro- alert, oriented x 3; no gross focal neurologic deficits Skin- warm & dry Updated Medication List Medication Instructions Recorded Confirmed Type escitalopram oxalate 20 mg tablet 20 mg PO DAILY 07/16/23 10/14/24 History ondansetron 4 mg disintegrating 8 mg PO Q8 PRN nausea 07/16/23 10/14/24 History tablet losartan 50 mg tablet 50 mg PO BID #60 tabs 01/01/24 10/14/24 Rx furosemide 20 mg tablet 20 mg PO DAILY PRN Fluid Retention 09/14/24 10/14/24 History Flutter Valve #1 ea 09/19/24 10/14/24 Rx buspirone 15 mg tablet 15 mg PO DAILY 10/14/24 10/14/24 History buspirone 30 mg tablet 30 mg PO QPM 10/14/24 10/14/24 History cyclobenzaprine 5 mg tablet 5 mg PO TID PRN Muscle Spasm 10/14/24 10/14/24 History duloxetine 30 mg capsule,delayed 30 mg PO QPM 10/14/24 10/14/24 History release methylprednisolone 4 mg tablets in 4 mg PO UD 10/14/24 10/14/24 History a dose pack metoprolol tartrate 25 mg tablet 25 mg PO Q12 10/14/24 10/14/24 History acetaminophen 325 mg tablet 650 mg (2 x 325 mg) PO Q4 PRN PAIN 10/21/24 Rx 1-3 #30 tabs amlodipine 5 mg tablet (Norvasc) 5 mg PO HS #30 tabs 10/21/24 Rx bisacodyl 5 mg tablet,delayed 10 mg (2 x 5 mg) PO DAILY PRN 10/21/24 Rx release (Gentle Laxative Constipation #60 tabs (bisacodyl)) buspirone 5 mg tablet 10 mg (2 x 5 mg) PO BID 30 days 10/21/24 Rx #120 tabs cholecalciferol (vitamin D3) 100 100 mcg PO DAILY #30 tabs 10/21/24 Rx mcg (4,000 unit) tablet duloxetine 20 mg capsule,delayed 20 mg PO HS 30 days #30 caps 10/21/24 Rx release (Cymbalta) enoxaparin 40 mg/0.4 mL 40 mg (0.4 mL) subcut Q24H 30 days 10/21/24 Rx subcutaneous syringe (Lovenox) #12 mL escitalopram oxalate 10 mg tablet 10 mg PO DAILY #30 tabs 10/21/24 Rx ezetimibe 10 mg tablet (Zetia) 10 mg PO HS #30 tabs 10/21/24 Rx famotidine 20 mg tablet 20 mg PO HS #30 tabs 10/21/24 Rx fenofibrate micronized 67 mg 67 mg PO HS #30 caps 10/21/24 Rx capsule folic acid 400 mcg tablet 400 mcg PO QAM #30 tabs 10/21/24 Rx lifitegrast 5 % eye drops in a 1 drp OPB BID #1 ea 10/21/24 Rx dropperette (Xiidra) lorazepam 0.5 mg tablet 0.25 mg (1/2 x 0.5 mg) sublingual 10/21/24 Rx HS Insomnia #15 tabs metoprolol succinate 50 mg 50 mg PO BID 30 days #60 tabs 10/21/24 Rx tablet,extended release 24 hr omeprazole 40 mg capsule,delayed 40 mg PO DAILY #30 caps 10/21/24 Rx release oxycodone 15 mg tablet,crush 15 mg PO AMHS 30 days #60 tabs 10/21/24 Rx resistant,extended release 12 hr oxycodone 5 mg tablet 5 mg PO Q8H PRN PAIN,MODERATE #30 10/21/24 Rx tabs potassium chloride 20 mEq 20 meq PO QAM #30 tabs 10/21/24 Rx tablet,extended release(part/cryst) thiamine HCl (vitamin B1) 100 mg 100 mg PO QAM #30 tabs 10/21/24 Rx tablet Hospital Stay Data Consultations 10/14/24 20:06 ED Decision to Admit Stat 10/15/24 08:00 Consult Cardiology Routine 10/16/24 12:27 Consult Pain Management Routine 10/18/24 09:51 Consult Psychiatry Routine 10/18/24 14:35 Consult Palliative Care Routine Diagnostic Imagining Performed Laboratory Results WBC 7.86 K/ul (4.8-10.8) 10/19/24 09:36 RBC 3.97 M/uL (4.20-5.40) L 10/19/24 09:36 Hgb 12.0 g/dl (12.0-16.0) 10/19/24 09:36 Hct 36.0 % (37.0-47.0) L 10/19/24 09:36 MCV 90.7 fL (80.0-100.0) 10/19/24 09:36 MCH 30.2 pg (25.0-34.0) 10/19/24 09:36 MCHC 33.3 g/dL (32.0-36.0) 10/19/24 09:36 RDW Std Deviation 50.4 fL (36.4-46.3) H 10/19/24 09:36 RDW Coeff of Cindy 15.2 % (11.5-14.5) H 10/19/24 09:36 Plt Count 430 K/uL (130-400) H 10/19/24 09:36 MPV 8.9 fL (9.4-12.4) L 10/19/24 09:36 Immature Gran % (Auto) 0.4 % 10/19/24 09:36 Neut % (Auto) 73.2 % 10/19/24 09:36 Lymph % (Auto) 14.5 % 10/19/24 09:36 [place] % (Auto) 10.3 % 10/19/24 09:36 Eos % (Auto) 1.1 % 10/19/24 09:36 Baso % (Auto) 0.5 % 10/19/24 09:36 Neut # (Auto) 5.75 K/uL (1.40-6.50) 10/19/24 09:36 Lymph # (Auto) 1.14 K/uL (1.20-3.40) L 10/19/24 09:36 [place] # (Auto) 0.81 K/uL (0.11-0.59) H 10/19/24 09:36 Eos # (Auto) 0.09 K/uL (0.00-0.50) 10/19/24 09:36 Baso # (Auto) 0.04 K/uL (0.00-0.20) 10/19/24 09:36 Immature Gran # (Auto) 0.03 K/uL (0.01-0.20) 10/19/24 09:36 PT 11.6 Seconds (9.0-12.0) 10/15/24 15:03 INR 1.1 (0.9-1.1) 10/15/24 15:03 APTT 29 Seconds (21-31) 10/15/24 15:03 PTT Ratio 1.1 10/15/24 15:03 Heparin Anti-Xa, Unfract < 0.10 IU/ml (0.3-0.7) L 10/18/24 05:28 VBG pH 7.43 (7.36-7.41) H 10/17/24 18:14 VBG pCO2 47 mmHg (38-50) 10/17/24 18:14 VBG pO2 < 20 mmHg 10/17/24 18:14 VBG HCO3 31 mmol/L 10/17/24 18:14 VBG O2 Saturation < 60.0 % 10/17/24 18:14 VBG Base Excess 5.8 mEq/L 10/17/24 18:14 Sodium 131 mmol/L (136-145) L 10/19/24 09:36 Potassium 3.7 mmol/L (3.5-5.1) 10/19/24 09:36 Chloride 96 mmol/L (98-107) L 10/19/24 09:36 Carbon Dioxide 29 mmol/L (21-32) 10/19/24 09:36 Anion Gap 6 (3-11) 10/19/24 09:36 BUN 22 mg/dl (6-23) 10/19/24 09:36 Creatinine 0.92 mg/dl (0.6-1.2) 10/19/24 09:36 Est Cr Clr Drug Dosing 30.3 ml/min 10/19/24 09:36 eGFR 61.02 10/19/24 09:36 BUN/Creatinine Ratio 23.9 (10-20) H 10/19/24 09:36 Glucose 116 mg/dl (70-99(Fasting)) H 10/19/24 09:36 Lactate 1.5 mmol/L (0.4-2.0) 10/17/24 20:13 Calcium 8.5 mg/dl (8.6-10.3) L 10/19/24 09:36 Phosphorus 4.7 mg/dl (2.5-4.9) 10/17/24 18:14 Magnesium 2.0 mg/dl (1.7-2.4) 10/18/24 05:28 Total Bilirubin 1.0 mg/dl (0.2-1.0) 10/14/24 18:46 AST 34 U/L (13-39) 10/14/24 18:46 ALT 27 U/L (7-52) 10/14/24 18:46 Alkaline Phosphatase 135 U/L (34-104) H 10/14/24 18:46 Troponin I High Sens 41.4 pg/ml (0-14) H 10/17/24 20:13 B-Natriuretic Peptide 3140 pg/ml (0-100) H 10/14/24 18:46 Total Protein 7.0 gm/dl (6.0-8.3) 10/14/24 18:46 Albumin 3.8 gm/dl (3.4-5.0) 10/14/24 18:46 Globulin 3.2 gm/dl (2.5-4.0) 10/14/24 18:46 Albumin/Globulin Ratio 1.2 (0.9-2) 10/14/24 18:46 Vitamin B12 294 pg/ml (180-914) 10/17/24 18:14 Procalcitonin 0.06 ng/ml (0-0.5) 10/17/24 18:14 TSH 4.138 uIu/ml (0.300-4.500) 10/17/24 18:14 Urine Color Yellow 10/14/24 22:20 Urine Appearance Clear (Clear) 10/14/24 22:20 Urine pH 7.0 (4.5-7.5) 10/14/24 22:20 Ur Specific [place] 1.013 (1.000-1.030) 10/14/24 22:20 Urine Protein Negative (Negative) 10/14/24 22:20 Urine Glucose (UA) Negative (Negative) 10/14/24 22:20 Urine Ketones Negative (Negative) 10/14/24 22:20 Urine Blood 1+ (Negative) H 10/14/24 22:20 Urine Nitrite Negative (Negative) 10/14/24 22:20 Urine Bilirubin Negative (Negative) 10/14/24 22:20 Urine Urobilinogen Negative (Negative) 10/14/24 22:20 Ur Leukocyte Esterase 3+ (Negative) H 10/14/24 22:20 Urine WBC (Auto) 0-5 /hpf (0-5) 10/14/24 22:20 Urine RBC (Auto) 11-20 /hpf (0-2) H 10/14/24 22:20 U Hyaline Cast (Auto) 0-2 /lpf (0-2) 10/14/24 22:20 U Epithel Cells (Auto) 0-2 /hpf (0-2) 10/14/24 22:20 Urine Bacteria (Auto) 3+ (None Seen) H 10/14/24 22:20 Uric Acid Crystals Present (None Prsent) A 10/14/24 22:20 Adenovirus (PCR) Not Detected (NotDetected) 10/14/24 18:46 B. pertussis DNA (PCR) Not Detected (NotDetected) 10/14/24 18:46 B.parapertussis DNA PCR Not Detected (NotDetected) 10/14/24 18:46 C. pneumoniae DNA (PCR) Not Detected (NotDetected) 10/14/24 18:46 Coronavirus OC43 (PCR) Not Detected (NotDetected) 10/14/24 18:46 Coronavirus HKU1 (PCR) Not Detected (NotDetected) 10/14/24 18:46 Coronavirus 229E (PCR) Not Detected (NotDetected) 10/14/24 18:46 SARS-CoV-2 (PCR) Not Detected (NotDetected) 10/14/24 18:46 Coronavirus NL63 (PCR) Not Detected (NotDetected) 10/14/24 18:46 Human Metapneumovir PCR Not Detected (NotDetected) 10/14/24 18:46 Influenza Type A (PCR) Not Detected (NotDetected) 10/14/24 18:46 Influenza Type B (PCR) Not Detected (NotDetected) 10/14/24 18:46 M. pneumoniae (PCR) Not Detected (NotDetected) 10/14/24 18:46 Parainfluenza 1 (PCR) Not Detected (NotDetected) 10/14/24 18:46 Parainfluenza 2 (PCR) Not Detected (NotDetected) 10/14/24 18:46 Parainfluenza 3 (PCR) Not Detected (NotDetected) 10/14/24 18:46 Parainfluenza 4 (PCR) Not Detected (NotDetected) 10/14/24 18:46 RSV (PCR) Not Detected (NotDetected) 10/14/24 18:46 Entero/Rhino (PCR) Not Detected (NotDetected) 10/14/24 18:46 Impressions Chest X-Ray 10/14/24 18:15 Clinical History: Dyspnea Technique: A frontal view of the chest was obtained Comparison is made to the prior examination dated 09/15/2024 Findings: There is worsened right lung base opacity, concerning for pneumonia. The heart is mildly enlarged. There is mild pulmonary edema. No definite pneumothorax is seen. There are suspected small bilateral pleural effusions No fracture is noted. No foreign body is seen Impression: 1. Small bilateral pleural effusions 2. Cardiomegaly and mild pulmonary edema 3. Possible right lower lobe pneumonia ACT 112: Positive. There are findings on this exam that require communication between the performing entity and the patient following Patient Test Result Information Act ([place] ACT 112) guidelines. Electronically signed by Migue Friedman 10-14-2024 6:41 PM Chest CTA 10/14/24 18:50 Clinical history: Dyspnea Technique: Axial computed tomography images were obtained of the chest after the administration of intravenous contrast according to the CT angiogram protocol Comparison is made to the prior CT dated 09/16/2024 Findings: There is no definite sign of pulmonary embolism. There is mild emphysema. There are new bilateral small to moderate sized pleural effusions. There is mild bilateral lower lobe atelectasis. There is no definite sign of pneumonia. There is no pneumothorax. There is no sign of pulmonary fibrosis or other diffuse interstitial process. No endobronchial lesion is seen There is no mediastinal, hilar, or axillary adenopathy. The thoracic aorta appears unremarkable with no sign of aneurysm or dissection. There is no pericardial effusion. There is coronary atherosclerosis The visualized upper abdomen appears unremarkable. There are multiple old left rib fractures. No focal osseous lesion is evident Impression: 1. No definite sign of pulmonary embolism 2. New bilateral pleural effusions 3. Mild emphysema 4. Coronary atherosclerosis Electronically signed by Migue Friedman 10-14-2024 7:[address] 10/17/24 17:47 Exam(s): CT HEAD Without Contrast EXAM: CT Head Without Intravenous Contrast CLINICAL HISTORY: Reason for exam: change in mental status. TECHNIQUE: Axial computed tomography images of the head/brain without intravenous contrast. CTDI is 102.78 mGy and DLP is 1406.31 mGy-cm. Automated exposure control was utilized for the study. A dose lowering technique was utilized adhering to the principles of ALARA. COMPARISON: 12/30/[address] FINDINGS: Artifacts: Images are degraded by motion artifact. Brain: Global parenchymal atrophy. No hemorrhage, extra-axial fluid collection, mass effect, or edema. Ventricles: Unremarkable. Bones/joints: Unremarkable. No fracture. Soft tissues: Unremarkable. Sinuses: No acute sinusitis. Mastoid air cells: Unremarkable as visualized. IMPRESSION: 1. No acute intracranial abnormality. Electronically signed by: Parker De Anda MD 10/17/24 21:26 PM Lumbar Spine MRI 10/19/24 16:25 EXAM: MR lumbar spine wo con CLINICAL HISTORY: s/p fall, back pain TECHNIQUE: MRI of the lumbar spine was performed without the administration of intravenous contrast, acquiring multiple sequences. COMPARISON: 09/14/2024, CT. FINDINGS: Limitations due to metallic artifacts. L4: S1 transpedicular fixation with posterior laminectomy Grade 1 anterolisthesis of L4 over L5 and L5 over S1. T12 vertebral body upper wedging. T11, L2, L3, and L5 vertebral body hemangioma. No evidence of scoliosis is observed. Normal vertebral body height, no fracture identified. No lytic or sclerotic lesions. Diffuse mottled bone marrow appearance, mostly marrow conversion versus post-osteoporotic treatment changes. Intervertebral discs demonstrate a mild loss of hydration.n [id number] analysis: T10-T11: 1.4 mm diffuse disc herniation indenting the thecal sac, causing mild stenosis of the neural exit foramina, more inclined to the left side. T12-L1: There is no significant disc pathology. No spinal canal stenosis. No neural foraminal stenosis. No ligamentum flavum hypertrophy and facet joint arthropathy. L1-L2: 1.86 mm diffuse disc herniation abutting the thecal sac, causing bilateral mild narrowing of the neural exit foramina. Mild facet joint arthropathy. Mild ligamentum flavum hypertrophy. L2-L3: 3.5 mm diffuse disc bulge indenting the thecal sac, causing bilateral moderate to severe stenosis of the neural exit foramina, more inclined to the left side. Bilateral moderate facet joint arthropathy was evident more on the left side with an osteophyte indenting the thecal sac, causing mild stenosis of the spinal canal and severe stenosis of the left neural exit foramina with impingement of the underlying nerve roots. Marked the ligamentum flavum hypertrophy. L3-L4 limitation due to artifacts, 2.86 mm diffuse disc bulge abutting the thecal sac, causing bilateral mild stenosis of the neural exit canals, more inclined to the right side. No spinal canal stenosis. Posterior laminectomy. The facet joints cannot be visualized.d L4-L5: Surgical disc. Posterior laminectomy. No spinal canal stenosis. The facet joints cannot be visualized.. L5-S1: Surgical disc. Posterior laminectomy. No spinal canal stenosis. The facet joints cannot be visualized.zed Spinal Cord and Nerve Roots: Conus medullaris terminates at the L1 level without abnormality. Nerve roots appear unremarkable bilaterally. The lower thoracic spinal cord, conus medullaris, and cauda equina nerve roots are unremarkable. Soft Tissues: Paraspinal soft tissues appear normal without evidence of abnormal signal intensity or mass lesions. IMPRESSION: 1. L4: S1 transpedicular fixation with posterior laminectomy. [place] 2. Grade 1 anterolisthesis of L4 over L5 and L5 over S1. [place]d 3. Multilevel disc bulges, as mentioned. Unchanged 4. ligamentum flavum hypertrophy. 5. Facet joint arthropathy. [place] 6. Diffuse mottled bone marrow appearance, mostly marrow conversion versus post-osteoporotic treatment changes. Clinical evaluation is advised. Electronically signed by Pillo Gramajo 10-19-2024 9:13 PM 10/14/24 18:50 CT for pulmonary embolism PE [CT angio chest PE protocol] Stat 10/17/24 17:47 CT head/brain wo con Urgent 10/19/24 16:25 MR lumbar spine wo con Routine Pending Results Patient Have Any Pending Studies at Discharge: No Discharge Instructions Given to Patient (Per Discharging Provider) please refer to accompanying hospital discharge summary for further details. Total Time Total Time Spent Total Time Spent (In Minutes): 45 minutes
--- NOTE | 2024-10-21 10:11 | Cardiology Progress Note ---
Date of Service October 21, 2024 Assessment & Plan (1) Acute exacerbation of CHF (congestive heart failure): (2) Elevated troponin: (3) Hypomagnesemia: (4) Hypokalemia: (5) Non-sustained ventricular tachycardia: Plan 84-year-old female admitted with acute heart failure prompted by severe pain hypertension and likely stress mediated cardiomyopathy with marked metabolic derangements. EKG with significant T wave inversion and QT prolongation. Cardiac status appears stable with heart rate and fluid status. Blood pressure still elevated. Would add calcium channel malaika nocturnally to regimen. Underlying mental status issues being addressed possible drug withdrawal Discussed all in detail with daughter. CODE STATUS once again readdressed 10/19/2024 Complex 84-year-old female presenting with severe pain acute heart failure marked hypertension and likely stress mediated cardiomyopathy. Clinically improved after likely drug withdrawal concerns addressed. Heart rate and blood pressure returning better control no signs of heart failure. Recommendations: Increase nightly dosing of amlodipine to 5 mg continue current dosing of metoprolol succinate and losartan. Limited echo in a.m. and EKG in a.m. Continue pain control 10/20/2024 84-year-old female presenting with heart failure marked hypertension and stress mediated cardiomyopathy. Echocardiogram demonstrated return to normal LV systolic function today. Continue to treat pain continue current antihypertensive and cardiac medications with metoprolol succinate 50 mg twice per day losartan 50 mg twice per day and new addition of amlodipine 5 mg nightly 10/21/2024 Slowly improving issues are as follows patient anticipating discharge to rehab 1. Acute heart failure, ventricular arrhythmia secondary to stress mediated cardiomyopathy. Resolved wall motion abnormality and arrhythmias after medical control normal to hyperdynamic ejection fraction on repeat echocardiogram 2. Hypertension medications adjusted upward would continue current therapies if persistent hypertension noted as clinical course progresses would add low-dose hydralazine. 3. 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 No further arrhythmias. Anxious to proceed with rehab. No chest pains dizziness or lightheadedness. Blood pressure trends mildly elevated still Physical Exam Constitutional: + thin and + frail appearing; no acute d istress Eyes: PERRL, conjunctivae normal, anicteric sclerae Neck: trachea midline, no thyromegaly Respiratory: Auscultation: + diminished lung sounds Cardiovascular: Rate/Rhythm: regular rate and regular rhythm Heart Sounds: + murmur (Grade 2 over 6 systolic ejection murmur) Vessels: no JVD Extremities: no edema Gastrointestinal (Abdomen): normal bowel sounds, soft, nontender, no hepatosplenomegaly Results & Data Vital Signs (Past 12 Hours) Vital Signs Temp Pulse Pulse Resp BP BP Pulse Ox 10/21/24 07:39 37.1 C 66 17 153/69 H 95 10/21/24 07:00 67 10/21/24 04:40 36.5 C 89 16 149/71 H 97 10/20/24 23:52 36.6 C 73 18 155/70 H 91 O2 Del Method 10/21/24 07:39 Room Air 10/21/24 07:00 10/21/24 04:40 Room Air 10/20/24 23:52 Room Air
[2024-10-21 10:18] VITALS: BP 149/71; PULSE 57
--- NOTE | 2024-10-23 08:46 | Electrocardiogram Report ---
Test Reason : Blood Pressure : */* mmHG Vent. Rate : 62 BPM Atrial Rate : 62 BPM P-R Int : 150 ms QRS Dur : 90 ms QT Int : 548 ms P-R-T Axes : 60 4 22 degrees QTcB Int : 556 ms Normal sinus rhythm Minimal voltage criteria for LVH, may be normal variant ( Sokolow-Sherwood ) Anteroseptal infarct (cited on or before 16-Oct-2024) Prolonged QT Abnormal ECG When compared with ECG of 16-Oct-2024 05:38, Aberrant conduction is no longer Present NM interval has increased Serial changes of evolving Anteroseptal infarct Present Confirmed by Halle Corado (Prashanth) on 10/23/2024 8:46:19 AM Referred By: REFERRED SELF Confirmed By: Halle Corado
--- NOTE | 2024-10-23 08:48 | Electrocardiogram Report ---
Test Reason : Blood Pressure : */* mmHG Vent. Rate : 71 BPM Atrial Rate : 71 BPM P-R Int : 146 ms QRS Dur : 76 ms QT Int : 464 ms P-R-T Axes : 65 13 48 degrees QTcB Int : 504 ms Sinus rhythm with Premature atrial complexes Left atrial enlargement Septal infarct (cited on or before 16-Oct-2024) ST elevation, consider early repolarization, pericarditis, or injury Abnormal ECG When compared with ECG of 18-Oct-2024 09:12, (unconfirmed) Premature atrial complexes are now Present Serial changes of Septal infarct Present T wave inversions have improved Confirmed by Halle Corado (Prashanth) on 10/23/2024 8:47:49 AM Referred By: REFERRED SELF Confirmed By: Halle Corado
== END 2024-10-21 10:28 | DRG 291 ==
LOC: ED 18:02 → SUATTDRO 22:48 → 2E 22:48